=== PATIENT | female | born 1965 | race American Indian/Alaskan Native ===

== ENCOUNTER 2016-07-21 13:12 | Inpatient (IN) | payer MEDICAID, OTHER ==
[2016-07-21] MEDS ORDERED: Albuterol-Ipratrop 3 mg / 0.5 (3 ml) UD INH STA ×3 (13:42→13:43)
[2016-07-21] MEDS ORDERED: MethylPREDNISolone 40 mg Vial IVP STA (13:42)
--- NOTE | 2016-07-21 13:46 | C.PDOC ---
History Of Present Illness 50 yr old with PMhx of asthma, presents to the ER with complaints of SOB and wheezing for the past 2 days. Also reports of a dry cough. Patient denies fever , nausea, vomiting, chest pain, abdominal pain, weakness or numbness. Time Seen by Provider: 07/21/16 13:30 Chief Complaint (Nursing): Shortness Of Breath History Per: Patient History/Exam Limitations: no limitations Onset/Duration Of Symptoms: Days (2) Current Symptoms Are (Timing): Still Present Past Medical History Reviewed: Historical Data, Nursing Documentation, Vital Signs Vital Signs: Last Vital Signs Temp 98.4 F 07/21/16 16:53 Pulse 104 H 07/21/16 16:53 Resp 22 07/21/16 16:53 BP 159/92 H 07/21/16 16:53 Pulse Ox 96 07/21/16 16:53 - Medical History PMH: Asthma, HTN Family History: States: No Known Family Hx - Social History Hx Alcohol Use: No Hx Substance Use: No - Immunization History Hx Tetanus Toxoid Vaccination: No Hx Influenza Vaccination: No Hx Pneumococcal Vaccination: No Review Of Systems Except As Marked, All Systems Reviewed And Found Negative. Constitutional: Negative for: Fever Cardiovascular: Negative for: Chest Pain Respiratory: Positive for: Cough (Dry ), Shortness of Breath Gastrointestinal: Negative for: Nausea, Vomiting, Abdominal Pain Neurological: Negative for: Weakness, Numbness Physical Exam - Physical Exam Appears: Non-toxic, No Acute Distress Skin: Warm, Dry, No Rash Head: Atraumatic, Normacephalic Eye(s): bilateral: Normal Inspection, PERRL, EOMI Oral Mucosa: Moist Throat: Normal, No Erythema, No Exudate Neck: Normal, Normal ROM, No Paracervical Tenderness, No Step Off Deformity, Supple Chest: Symmetrical, No Tenderness Cardiovascular: Rhythm Regular, No Murmur Respiratory: No Rales, No Stridor, Wheezing (Diffuse) Gastrointestinal/Abdominal: Normal Exam, Soft, No Tenderness, No Guarding, No Rebound Extremity: Normal ROM, No Swelling Neurological/Psych: Oriented x3, Normal Speech, Normal Motor ED Course And Treatment - Laboratory Results Result Diagrams: 07/21/16 14:00 07/21/16 14:00 ECG: Interpreted By Me, Viewed By Me ECG Rhythm: Sinus Rhythm ECG Interpretation: No Acute Changes Interpretation Of ECG: Non specific ST/T wave changes. No interval changes. Rate From EC (BPM) O2 Sat by Pulse Oximetry: 97 (RA) - Other Rad CXR X-Ray: Viewed By Me, Read By Radiologist Interpretation: HISTORY: chest pain. COMPARISON: 07/12/2016. TECHNIQUE: Chest PA and lateral. FINDINGS: LUNGS: Opacity in the right lower lobe could represent atelectasis versus developing pneumonia. PLEURA: No significant pleural effusion identified. No pneumothorax apparent. CARDIOVASCULAR: Normal. OSSEOUS STRUCTURES: The osseous structures demonstrate degenerative changes. VISUALIZED UPPER ABDOMEN: Upper abdomen is suboptimally evaluated. OTHER FINDINGS: None. IMPRESSION: Opacity in the right lower lobe could represent atelectasis versus pneumonia. Medical Decision Making Medical Decision Making: PLAN: * CXR * EKG * Troponin * CBC * Albuterol INH * Solumedrol IVP * 344: pt wiht diffuse wheezing, persistent, peak flow only 150 to 200. needs admission, iv steriods, antibiotics Disposition - Disposition Disposition: HOSPITALIZED Disposition Time: 15:45 Condition: FAIR - Clinical Impression Clinical Impression: Asthma - Scribe Statement The provider has reviewed the documentation as recorded by the Sarahibe Bonnie Oleary Provider Attestation: All medical record entries made by the Scribe were at my direction and personally dictated by me. I have reviewed the chart and agree that the record accurately reflects my personal performance of the history, physical exam, medical decision making, and the department course for this patient. I have also personally directed, reviewed, and agree with the discharge instructions and disposition. Decision To Admit - Pt Status Changed To: Hospital Disposition Of: Inpatient - Admit Certification Admit to Inpatient:: After my assessment, the patient will require hospitalization for at least two midnights. This is because of the severity of symptoms shown, intensity of services needed, and/or the medical risk in this patient being treated as an outpatient. - InPatient: Physician Admission Certification: I certify that this patient requires 2 or more midnights of care for the following reason:: pt with asthma, minimal improvement in peak flow needs iv steriods - . Bed Request Type: Telemetry Admitting Physician: Bhupendra Ryder Patient Diagnosis: Asthma
[2016-07-21] MEDS ORDERED: Albuterol 0.042% Inhal Sol (1.25 mg/3 mL) UD ONE (13:54)
[2016-07-21] MEDS ORDERED: Albuterol-Ipratrop 3 mg / 0.5 (3 ml) UD ONE (14:01)
[2016-07-21 14:10] LABS: BASO % 0.6 % (0.0-2.0); CHLORIDE 101 mmol/L (98-107); EOS # 0.3 K/uL (0.0-0.7); EOS % 5.4 % (0.0-4.0); HEMATOCRIT 40.2 % (34.0-47.0); LYMPH # 1.3 K/uL (1.0-4.3); LYMPH % 20.2 % (20.0-40.0); MEAN CELL VOLUME 84.8 fL (81.0-99.0); MEAN CORPUSCULAR HGB CONC 31.9 g/dL (33.0-37.0); MEAN PLATELET VOLUME 8.7 fL (7.2-11.7); MONO # 0.4 K/uL (0.0-0.8); MONO % 6.9 % (0.0-10.0); RED CELL DISTRIBUTION WIDTH 14.9 % (11.5-14.5); WHITE BLOOD COUNT 6.2 K/uL (4.8-10.8)
[2016-07-21 14:11] LABS: POTASSIUM 3.2 mmol/L (3.6-5.2); SODIUM 145 mmol/L (132-148)
[2016-07-21 14:13] LABS: GFR AFRICAN-AMERICAN > 60
[2016-07-21 14:14] LABS: ALB/GLOB RATIO 1.1 (1.0-2.1); ALKALINE PHOSPHATASE 52 U/L (38-126); ALT/SGPT 25 U/L (9-52); AST/SGOT 18 U/L (14-36); BILIRUBIN,TOTAL 0.5 mg/dL (0.2-1.3); BLOOD UREA NITROGEN 12 mg/dL (7-17); CALCIUM 8.7 mg/dl (8.6-10.4); CARBON DIOXIDE 31 mmol/L (22-30); GLUCOSE,RANDOM 102 mg/dL (65-105); TOTAL PROTEIN 7.7 g/dL (6.3-8.3)
[2016-07-21] MEDS ORDERED: Potassium Chloride 20 mEq ER Tab PO STA (14:17)
[2016-07-21] MEDS ORDERED: Potassium Chloride 20 mEq ER Tab PO ONE (14:40)
[2016-07-21] MEDS ORDERED: Azithromycin 500 MG in Sodium Chloride 0.9% 250 ML IVPB STA (15:01)
--- NOTE | 2016-07-21 15:01 | RAD ---
HISTORY: chest pain COMPARISON: 07/12/2016. TECHNIQUE: Chest PA and lateral FINDINGS: LUNGS: Opacity in the right lower lobe could represent atelectasis versus developing pneumonia. PLEURA: No significant pleural effusion identified. No pneumothorax apparent. CARDIOVASCULAR: Normal. OSSEOUS STRUCTURES: The osseous structures demonstrate degenerative changes. VISUALIZED UPPER ABDOMEN: Upper abdomen is suboptimally evaluated. OTHER FINDINGS: None. IMPRESSION: Opacity in the right lower lobe could represent atelectasis versus pneumonia.
[2016-07-21] MEDS ORDERED: cefTRIAXone IV 1 gm in Dextros 50 ML IVPB ONE (15:10)
[2016-07-21] MEDS ORDERED: Azithromycin 500mg/250ML NS 250 ML IVPB ONE (15:10)
--- NOTE | 2016-07-21 16:12 | CP.PCM.HP ---
History of Present Illness - History of Present Illness History of Present Illness: CC: "I couldn't breath this morning" HPI: Patient is a 50 year old female with PMHx of asthma, bipolar disorder, and HTN who presents to the ED complaining of shortness of breath. She states that about 10 days ago her asthma became worse and she developed a productive cough with yellow sputum. The patient states that she uses Ventolin INH daily and has been using her albuterol nebulizer multiple times a day for the past week. She came to the ED on 07/12/16 for the same symptoms and was given Solu-medrol and nebulizer treatment. Her symptoms improved and she was discharged home on Prednisone 40mg, Ventolin INH, and Albuterol INH. The patient's asthma was stable after her ED visit but she says that her symptoms returned after two days. She complains of wheezing as well and is unable to walk more than one flight of stairs without feeling short of breath. She also complains that when she lays flat to sleep she occasionally wakes up gasping for air. She admits to snoring at night. Denies history of sleep apnea, patient never has had sleep study before. She must sleep on multiple pillows at night. Her dyspnea makes her anxiety worse and she admits to panic attacks. Denies chest pain, palpitations, fevers, sick contacts, headache, dizziness, sore throat, nasal congestion, fatigue, body aches, back pain, abdominal pain, nausea, vomiting, decreased appetite, diarrhea, swelling in her legs, and weakness. She denies recent travel. Patient was given nebulizer and solu-medrol IV in ED. Her symptoms improved but patient states that she still feels short of breath and unwell. Patient states that she has never been intubated before. She does not know her baseline peak flow. PMD: Dr Mancia (clinic) Meds: Ventolin INH, Albuterol INH, Lasix, Prednisone, Seroquel, Celexa (patient admits that she does not take her psychiatric medications regularly and is not compliant with her treatment. She sees Dr Reynoso regularly) Surgical Hx: x5, umbilical hernia repair Family Hx: Mom- asthma, HTN (); Dad- Lung cancer () Social Hx: Denies EtOH use, denies tobacco use, denies illicit drug use. Currently unemployed, trying to get disability for her asthma. Allergies: NKDA Present on Admission - Present on Admission Any Indicators Present on Admission: No Review of Systems - Constitutional Constitutional: As Per HPI. absent: Chills, Fatigue, Fever, Weakness - EENT Eyes: As Per HPI. absent: Change in Vision Ears: As Per HPI. absent: Dizziness Nose/Mouth/Throat: As Per HPI. absent: Nasal Congestion, Sinus Pain, Sinus Pressure, Sore Throat - Cardiovascular Cardiovascular: As Per HPI, Dyspnea. absent: Chest Pain, Irregular Heart Rhythm , Leg Edema, Lightheadedness, Palpitations - Respiratory Respiratory: As Per HPI, Cough (productive), Dyspnea, Dyspnea on Exertion, Wheezing, Snoring, Chest Congestion. absent: Hemoptysis, Pain on Inspiration, Pain with Coughing - Gastrointestinal Gastrointestinal: As Per HPI. absent: Abdominal Pain, Constipation, Diarrhea, Nausea, Vomiting - Genitourinary Genitourinary: As Per HPI. absent: Change in Urinary Stream, Difficulty Urinating - Musculoskeletal Musculoskeletal: As Per HPI. absent: Back Pain, Muscle Weakness, Numbness, Tingling - Integumentary Integumentary: As Per HPI. absent: New Lesions, Rash - Neurological Neurological: As Per HPI. absent: Dizziness, Numbness, Headaches, Tingling, Weakness - Psychiatric Psychiatric: As Per HPI, Anxiety, Panic Attacks. absent: Depression, Suicidal Ideation Past Patient History - Infectious Disease Hx of Infectious Diseases: None - Past Social History Smoking Status: Never Smoked - CARDIAC Hx Hypertension: Yes - PULMONARY Hx Asthma: Yes - PSYCHIATRIC Hx Substance Use: No - SURGICAL HISTORY Hx Section: Yes (x5) Hx Herniorrhaphy: Yes - ANESTHESIA Hx Anesthesia: Yes Hx Anesthesia Reactions: No Hx Malignant Hyperthermia: No Meds Allergies/Adverse Reactions: Allergies Allergy/AdvReac Type Severity Reaction Status Date / Time No Known Allergies Allergy Verified 07/21/16 13:18 Physical Exam - Constitutional Appears: Non-toxic, No Acute Distress - Head Exam Head Exam: ATRAUMATIC, NORMOCEPHALIC - Eye Exam Eye Exam: EOMI, Normal appearance, PERRL Pupil Exam: NORMAL ACCOMODATION - ENT Exam ENT Exam: Mucous Membranes Moist, Normal Exam Additional comments: negative erythema or exudates - Neck Exam Neck exam: Positive for: Normal Inspection. Negative for: Lymphadenopathy - Respiratory Exam Respiratory Exam: Wheezes (diffuse expiratory wheezes throughout), NORMAL BREATHING PATTERN. absent: Accessory Muscle Use, Chest Wall Tenderness, Decreased Breath Sounds, Clear to Auscultation Bilateral, Rhonchi, Respiratory Distress - Cardiovascular Exam Cardiovascular Exam: REGULAR RHYTHM, +S1, +S2. absent: Irregular Rhythm, Systolic Murmur - GI/Abdominal Exam GI & Abdominal Exam: Normal Bowel Sounds, Soft. absent: Distended, Firm, Guarding, Tenderness - Extremities Exam Extremities exam: Positive for: normal inspection, pedal pulses present (2+ pedal pulses, 2+ radial pulses ). Negative for: pedal edema, tenderness - Back Exam Back exam: NORMAL INSPECTION - Neurological Exam Neurological exam: Alert, CN II-XII Intact, Normal Gait, Oriented x3 - Psychiatric Exam Psychiatric exam: Normal Affect, Normal Mood - Skin Skin Exam: Dry, Intact, Normal Color, Warm Results - Vital Signs Recent Vital Signs: Last Vital Signs Temp 98.4 F 07/21/16 14:45 Pulse 94 H 07/21/16 14:45 Resp 20 07/21/16 14:45 BP 130/71 07/21/16 14:45 Pulse Ox 97 07/21/16 15:51 - Labs Result Diagrams: 07/21/16 14:00 07/21/16 14:00 Labs: Laboratory Results - last 24 hr 07/21/16 14:00 WBC 6.2 RBC 4.74 Hgb 12.8 Hct 40.2 MCV 84.8 MCH 27.0 MCHC 31.9 L RDW 14.9 H Plt Count 230 MPV 8.7 Neut % (Auto) 66.9 Lymph % (Auto) 20.2 [place] % (Auto) 6.9 Eos % (Auto) 5.4 H Baso % (Auto) 0.6 Neut # 4.1 Lymph # 1.3 [place] # 0.4 Eos # 0.3 Baso # 0.0 PT 11.4 INR 1.0 APTT 30 Sodium 145 Potassium 3.2 L Chloride 101 Carbon Dioxide 31 H Anion Gap 16 BUN 12 Creatinine 0.5 L Est GFR ( Amer) > 60 Est GFR (Non-Af Amer) > 60 Random Glucose 102 Calcium 8.7 Total Bilirubin 0.5 AST 18 ALT 25 Alkaline Phosphatase 52 Troponin I < 0.0120 NT-Pro-B Natriuret Pep 31.1 Total Protein 7.7 Albumin 4.0 Globulin 3.7 Albumin/Globulin Ratio 1.1 Assessment & Plan - Assessment and Plan (Free Text) Assessment: (1) Dyspnea secondary to asthma exacerbation Given Solu-medrol 125mg IV x1 and duonebs in ED. Pre-treatment peak flow 150, post-treatment peak flow 200. SHAGGY negative x1 ProBNP normal Duonebs 3ml INH q6h REBA Spiriva 18mcg INH q24h Rule out DVT and CHF as causes of dyspnea- f/u ECHO and B/L LE dopplers Patient advised to have sleep study done as outpatient to rule out obstructive sleep apnea (2) Pneumonia Chest X-ray: opacity in the right lower lobe could represent atelectasis vs pneumonia In ED- afebrile, no leukocytosis Azithromycin 500mg IV q24h Ceftriaxone 1gm IV q12h Robitussin 200mg PO q4h prn f/u legionella, influenza AB, and mycoplasma f/u blood culture f/u sputum culture (3) HTN Continue home med Lasix 20mg PO daily Well controlled Check vitals q4h and adjust medications if needed (4) Hypokalemia K+ 3.2 in ED Likely secondary to chronic albuterol treatments Given Kdur 40mEq x1 f/u BMP in AM and replete as needed (5) Bipolar disorder Current denies depression, SI/HI Non-compliant with home meds Seroquel and Celexa, will not start on this admission Continue management per outpatient psychiatrist Dr Reynoso after discharge (6) Prophylactic measures Protonix 40mg PO daily SCDs Heparin 5000u SC q8h
[2016-07-21 17:05] LABS: LEGIONELLA AG URINE NEGATIVE (NEGATIVE)
[2016-07-21] MEDS: Albuterol-Ipratrop 3 mg / 0.5 (3 ml) UD INH SCH (20:29)
[2016-07-22] MEDS: Albuterol-Ipratrop 3 mg / 0.5 (3 ml) UD INH SCH ×5 (01:13→23:34)
[2016-07-22 07:54] LABS: CHLORIDE 99 mmol/L (98-107); POTASSIUM 4.7 mmol/L (3.6-5.2); SODIUM 143 mmol/L (132-148)
[2016-07-22 07:55] LABS: BASO % 0.2 % (0.0-2.0); EOS % 0.1 % (0.0-4.0); HEMATOCRIT 39.8 % (34.0-47.0); LYMPH # 0.8 K/uL (1.0-4.3); LYMPH % 8.1 % (20.0-40.0); MEAN CELL VOLUME 84.3 fL (81.0-99.0); MEAN CORPUSCULAR HEMOGLOBIN 27.8 pg (27.0-31.0); MEAN PLATELET VOLUME 9.1 fL (7.2-11.7); MONO # 0.3 K/uL (0.0-0.8); PLATELET COUNT 245 K/uL (130-400)
[2016-07-22 07:56] LABS: BILIRUBIN,TOTAL 0.3 mg/dL (0.2-1.3); CARBON DIOXIDE 29 mmol/L (22-30); GFR AFRICAN-AMERICAN > 60
[2016-07-22 07:57] LABS: ALB/GLOB RATIO 1.1 (1.0-2.1); ALKALINE PHOSPHATASE 59 U/L (38-126); ALT/SGPT 22 U/L (9-52); AST/SGOT 19 U/L (14-36); BLOOD UREA NITROGEN 11 mg/dL (7-17); CALCIUM 9.3 mg/dl (8.6-10.4); GLUCOSE,RANDOM 126 mg/dL (65-105); TOTAL PROTEIN 7.9 g/dL (6.3-8.3)
[2016-07-22 08:00] LABS: WHITE BLOOD COUNT 10.2 K/uL (4.8-10.8)
[2016-07-22] MEDS: Tiotropium 18 mcg Cap For Inhalation INH SCH (08:27)
[2016-07-22] MEDS: MethylPREDNISolone 40 mg Vial IVP SCH ×2 (10:05→21:08)
[2016-07-22] MEDS: Pantoprazole 40 mg EC Tab PO SCH (10:05)
--- NOTE | 2016-07-22 11:20 | CP.PCM.PN ---
Subjective - Date & Time of Evaluation Date of Evaluation: 07/22/16 Time of Evaluation: 07:55 - Subjective Subjective: PGY-1 Medicine Note - Dr. Ryder Patient seen and examined at bedside. No overnight events per nursing. Patient reports persistent cough with associated muscular back pain. She reports mild improvement with duonebs. Will monitor improvement with additional pulmonary meds. Tolerating diet, +BM, +urination. Denies f/c, headache, chest pain, palpitations, overt SOB, abdominal pain, n/v, d/c, dysuria, urinary frequency, LE swelling, or any other acute complaints. Objective - Vital Signs/Intake and Output Vital Signs (last 24 hours): Temp Pulse Resp BP Pulse Ox 98.1 F 99 H 20 163/93 H 98 07/21/16 23:40 07/22/16 08:29 07/21/16 23:40 07/22/16 10:05 07/21/16 23:40 - Medications Medications: Current Medications Albuterol/Ipratropium (Duoneb 3 Mg/0.5 Mg (3 Ml) Ud) 3 ml INH RQ6 REBA Last Admin: 07/22/16 07:27 Dose: 3 ml Furosemide (Lasix) 20 mg PO DAILY REBA Last Admin: 07/22/16 10:05 Dose: 20 mg Guaifenesin (Robitussin) 200 mg PO Q4H PRN PRN Reason: Cough and congestion Heparin Sodium (Porcine) (Heparin) 5,000 units SC Q8 REBA Last Admin: 07/22/16 06:08 Dose: 5,000 units Azithromycin 500 mg/ Sodium (Chloride) 250 mls @ 250 mls/hr IVPB Q24H REBA Ceftriaxone Sodium 1 gm/ (Sodium Chloride) 100 mls @ 100 mls/hr IVPB Q12H REBA Last Admin: 07/22/16 10:05 Dose: 100 mls/hr Methylprednisolone (Solu-Medrol) 40 mg IVP Q12 REBA Last Admin: 07/22/16 10:05 Dose: 40 mg Pantoprazole Sodium (Protonix Ec Tab) 40 mg PO DAILY REBA Last Admin: 07/22/16 10:05 Dose: 40 mg Pneumococcal Polyvalent Vaccine (Pneumovax 23 Vaccine) 0.5 ml IM .ONCE ONE Stop: 07/23/16 10:01 Tiotropium [place] (Spiriva) 18 mcg INH RQ24 REBA Last Admin: 07/22/16 08:27 Dose: Not Given - Labs Labs: 07/22/16 07:09 07/22/16 07:09 PT 11.4 SECONDS (9.7-12.2) 07/21/16 14:00 INR 1.0 07/21/16 14:00 APTT 30 SECONDS (21-34) 07/21/16 14:00 - Additional Findings Additional findings: - Constitutional Appears: Non-toxic, No Acute Distress - Head Exam Head Exam: ATRAUMATIC, NORMOCEPHALIC - Eye Exam Eye Exam: EOMI, Normal appearance, PERRL Pupil Exam: NORMAL ACCOMODATION - ENT Exam ENT Exam: Mucous Membranes Moist, Normal Exam Additional comments: negative erythema or exudates - Respiratory Exam Respiratory Exam: Wheezes (diffuse expiratory wheezes), NORMAL BREATHING PATTERN. absent: Accessory Muscle Use, Decreased Breath Sounds, Rhonchi, Respiratory Distress - Cardiovascular Exam Cardiovascular Exam: REGULAR RHYTHM, +S1, +S2. absent: Irregular Rhythm, Systolic Murmur - GI/Abdominal Exam GI & Abdominal Exam: Normal Bowel Sounds, Soft. absent: Distended, Firm, Guarding, Tenderness - Extremities Exam Extremities exam: Positive for: normal inspection, pedal pulses present (2+ pedal pulses, 2+ radial pulses ). Negative for: pedal edema, tenderness - Back Exam Back exam: NORMAL INSPECTION - Neurological Exam Neurological exam: Alert, CN II-XII Intact, Normal Gait, Oriented x3 - Psychiatric Exam Psychiatric exam: Normal Affect, Normal Mood - Skin Skin Exam: Dry, Intact, Normal Color, Warm Assessment and Plan - Assessment and Plan (Free Text) Assessment: (1) Dyspnea secondary to asthma exacerbation Given Solu-medrol 125mg IV x1 and duonebs in ED. Pre-treatment peak flow 150, post-treatment peak flow 200. SHAGGY negative ProBNP normal Duonebs 3ml INH q4h REBA Spiriva 18mcg INH q24h Rule out DVT and CHF as causes of dyspnea- ECHO - EF 73% B/L LE dopplers - Negative CT angio PE - Negative Patient advised to have sleep study done as outpatient to rule out obstructive sleep apnea (2) Pneumonia Chest X-ray: opacity in the right lower lobe could represent atelectasis vs pneumonia In ED- afebrile, no leukocytosis Azithromycin 500mg IV q24h Ceftriaxone 1gm IV q12h Robitussin 200mg PO q4h prn Negative: legionella, influenza AB, and mycoplasma f/u blood culture (pending) f/u sputum culture - G(+), pending (3) HTN 169/93, Continue to monitor and adjust Continue home med Lasix 20mg PO daily Lasix 20mg IVP once (07/22) Check vitals q4h and adjust medications if needed (4) Hypokalemia - resolved K+ 3.2 in ED Likely secondary to chronic albuterol treatments Given Kdur 40mEq x1 f/u BMP in AM and replete as needed (5) Bipolar disorder Current denies depression, SI/HI Non-compliant with home meds Seroquel and Celexa, will not start on this admission Continue management per outpatient psychiatrist Dr Reynoso after discharge (6) Prophylactic measures Protonix 40mg PO daily SCDs Heparin 5000u SC q8h
[2016-07-22 11:25] LABS: METAMYELOCYTE 1 % (0-0); NEUTROPHIL 76 % (50-75); TOTAL CELLS COUNTED 100
[2016-07-22 11:26] LABS: LARGE PLATELETS PRESENT
[2016-07-22] MEDS: Azithromycin 500 MG in Sodium Chloride 0.9% 250 ML IVPB SCH (11:30)
[2016-07-22] MEDS ORDERED: Iodixanol 320 mg/ml 150 ml Bottle IV ONE (14:02)
--- NOTE | 2016-07-22 14:36 | VASCLAB ---
PROCEDURE: Lower Extremity Venous Duplex Exam. HISTORY: Leg swelling, rule out DVT PRIORS: None. TECHNIQUE: Bilateral common femoral, femoral, popliteal and posterior tibial, peroneal and great saphenous veins were evaluated. Flow was assessed with color Doppler, compressibility, assessment of phasic flow and augmentation response. Report prepared by Butch Galeano, GENOVEVA, RVT FINDINGS: RIGHT: 1. Common Femoral Vein: 1.1. Compressibility - Fully compressible: Thrombus - None : Flow - Phasic: Augmentation -Normal: Reflux - None. 2. Femoral Vein: 2.1. Compressibility - Fully compressible: Thrombus - None : Flow - Phasic: Augmentation -Normal: Reflux - None. 3. Popliteal Vein: 3.1. Compressibility - Fully compressible: Thrombus - None : Flow - Phasic: Augmentation -Normal: Reflux - None. 4. Posterior Tibial Vein: 4.1. Compressibility - Fully compressible: Thrombus - None: Flow - Phasic: Augmentation -Normal: Reflux - None. 5. Peroneal Vein: 5.1. Compressibility - Fully compressible: Thrombus - None: Flow - Phasic: Augmentation -Normal: Reflux - None. 6. Great Saphenous Vein: 6.1. Compressibility - Fully compressible: Thrombus - None: Flow - Phasic: Augmentation - Normal: Reflux - None. LEFT: 1. Common Femoral Vein: 1.1. Compressibility - Fully compressible: Thrombus - None: Flow - Phasic: Augmentation -Normal: Reflux - None. 2. Femoral Vein: 2.1. Compressibility - Fully compressible: Thrombus - None: Flow - Phasic: Augmentation -Normal: Reflux - None. 3. Popliteal Vein: 3.1. Compressibility - Fully compressible: Thrombus - None : Flow - Phasic: Augmentation -Normal: Reflux - None. 4. Posterior Tibial Vein: 4.1. Compressibility - Fully compressible: Thrombus - None: Flow - Phasic: Augmentation -Normal: Reflux - None. 5. Peroneal Vein: 5.1. Compressibility - Fully compressible: Thrombus - None: Flow - Phasic: Augmentation -Normal: Reflux - None. 6. Great Saphenous Vein: 6.1. Compressibility - Fully compressible: Thrombus - None: Flow - Phasic: Augmentation - Normal: Reflux - None. OTHER FINDINGS: Right: None significant. Left: None significant. IMPRESSION: Right: No evidence of deep or superficial vein thrombosis of the right lower extremity. Normal valve function noted of the right side. Left: No evidence of deep or superficial vein thrombosis of the left lower extremity. Normal valve function noted of the left side.
--- NOTE | 2016-07-22 15:19 | CT ---
PROCEDURE: CT Chest with contrast (Pulmonary Angiogram) HISTORY: persistent SOB COMPARISON: None available. TECHNIQUE: Axial computed tomography images were obtained of the chest in the pulmonary arterial phase of enhancement. Coronal and sagittal reformatted images were created and reviewed. Intravenous contrast dose: 100 cc of Visipaque Radiation dose: Total exam DLP = 542 mGy-cm. FINDINGS: PULMONARY ARTERIES: Unremarkable. No pulmonary embolism. AORTA: No acute findings. No thoracic aortic aneurysm. LUNGS: Unremarkable. No nodule, mass or pulmonary consolidation. PLEURAL SPACES: Unremarkable. No effusion or pneuomothorax. HEART: Unremarkable. No cardiomegaly. No significant pericardial effusion. LYMPH NODES: No lymphadenopathy. BONES, CHEST WALL: Unremarkable. No fracture or destructive lesion OTHER FINDINGS: Unremarkable. IMPRESSION: Unremarkable CT pulmonary angiogram. No pulmonary embolus.
--- NOTE | 2016-07-22 19:08 | CARD ---
APPROVED REPORT EXAM: Two-dimensional and M-mode echocardiogram with Doppler and color Doppler. Other Information Quality : GoodRhythm : INDICATION Dyspnea RISK FACTORS Hypertension M-Mode DIMENSIONS RVDd1.51 (2.1-3.2cm)Left Atrium (MM)4.24 (2.5-4.0cm) IVSd0.89 (0.7-1.1cm)Aortic Root3.58 (2.2-3.7cm) LVDd4.79 (4.0-5.6cm)Aortic Cusp Exc.1.92 (1.5-2.0cm) PWd1.03 (0.7-1.1cm)FS (%) 42 % LVDs2.77 (2.0-3.8cm)LVEF (%)73 (>50%) Aortic Valve AoV Peak Ndnvrznr972.2cm/Roberto Peak GR.12mmHg Mitral Valve MV E Hgtaifei88.2cm/sMV A Fjmfhcxg933.1cm/sE/A ratio0.7 TDI E/Lateral E'0.0E/Medial E'0.0 Tricuspid Valve TR Peak Pddznora441gm/sTR Peak Gr.[id number] LEFT VENTRICLE The left ventricle is normal size. There is normal left ventricular wall thickness. The left ventricular function is normal. The left ventricular ejection fraction is within the normal range. There is normal LV segmental wall motion. Transmitral Doppler flow pattern is Grade I-abnormal relaxation pattern. RIGHT VENTRICLE The right ventricle is normal size. There is normal right ventricular wall thickness. The right ventricular systolic function is normal. ATRIA The left atrium is borderline dilated. The right atrium size is normal. AORTIC VALVE The aortic valve is not well visualized. No aortic regurgitation is present. MITRAL VALVE The mitral valve is mildly thickened. There is no evidence of mitral valve prolapse. TRICUSPID VALVE The tricuspid valve is normal in structure. GREAT VESSELS The aortic root is normal in size. The IVC is normal in size and collapses >50% with inspiration. <Conclusion> The left ventricle is normal size. There is normal left ventricular wall thickness. The left ventricular function is normal. The left ventricular ejection fraction is within the normal range. There is normal LV segmental wall motion. Transmitral Doppler flow pattern is Grade I-abnormal relaxation pattern.
[2016-07-22] MEDS: guaiFENesin 200 mg/10 ml Syrup UD PO PRN (21:11)
[2016-07-23] MEDS: Albuterol-Ipratrop 3 mg / 0.5 (3 ml) UD INH SCH ×4 (03:06→16:09)
[2016-07-23 06:29] LABS: CHLORIDE 96 mmol/L (98-107)
[2016-07-23 06:30] LABS: POTASSIUM 4.7 mmol/L (3.6-5.2); SODIUM 142 mmol/L (132-148)
[2016-07-23 06:32] LABS: ALB/GLOB RATIO 1.1 (1.0-2.1); ALKALINE PHOSPHATASE 61 U/L (38-126); ALT/SGPT 26 U/L (9-52); AST/SGOT 22 U/L (14-36); BILIRUBIN,TOTAL 0.6 mg/dL (0.2-1.3); BLOOD UREA NITROGEN 17 mg/dL (7-17); CARBON DIOXIDE 34 mmol/L (22-30); GFR AFRICAN-AMERICAN > 60; GLUCOSE,RANDOM 139 mg/dL (65-105); TOTAL PROTEIN 8.3 g/dL (6.3-8.3)
[2016-07-23 06:33] LABS: CALCIUM 9.4 mg/dl (8.6-10.4)
[2016-07-23 07:24] LABS: BASO # 0.1 K/uL (0.0-0.2); BASO % 0.4 % (0.0-2.0); EOS % 0.1 % (0.0-4.0); HEMATOCRIT 41.9 % (34.0-47.0); LYMPH # 1.7 K/uL (1.0-4.3); LYMPH % 11.7 % (20.0-40.0); MEAN CORPUSCULAR HEMOGLOBIN 27.2 pg (27.0-31.0); MEAN PLATELET VOLUME 9.1 fL (7.2-11.7); MONO # 0.3 K/uL (0.0-0.8); RED CELL DISTRIBUTION WIDTH 14.9 % (11.5-14.5); WHITE BLOOD COUNT 14.2 K/uL (4.8-10.8)
[2016-07-23] MEDS: Tiotropium 18 mcg Cap For Inhalation INH SCH (07:38)
[2016-07-23] MEDS: Pantoprazole 40 mg EC Tab PO SCH (09:22)
[2016-07-23] MEDS: MethylPREDNISolone 40 mg Vial IVP SCH (09:22)
[2016-07-23] MEDS ORDERED: Pneumococcal 23-Valent Vaccine IM ONE (10:00)
[2016-07-23] MEDS: guaiFENesin 200 mg/10 ml Syrup UD PO PRN (10:17)
[2016-07-23] MEDS: Azithromycin 500 MG in Sodium Chloride 0.9% 250 ML IVPB SCH (11:43)
[2016-07-23 15:29] VITALS: PULSE 92; RESP 22; TEMP 97.7; O2SAT 94
[2016-07-23 16:23] VITALS: BP 154/88
--- NOTE | 2016-07-23 18:07 | CP.PCM.DIS ---
Provider - Provider Date of Admission: 07/21/16 15:46 Attending physician: Bhupendra Ryder MD Time Spent in preparation of Discharge (in minutes): 40 Hospital Course - Lab Results Lab Results: Micro Results 07/22/16 16:30 Blood-Venous Blood Culture - Preliminary NO GROWTH AFTER 24 HOURS 07/22/16 13:25 Blood-Venous Blood Culture - Preliminary NO GROWTH AFTER 24 HOURS 07/22/16 00:10 Sputum Gram Stain - Preliminary Most Recent Lab Values WBC 14.2 K/uL (4.8-10.8) H 07/23/16 06:02 RBC 4.93 Mil/uL (3.80-5.20) 07/23/16 06:02 Hgb 13.4 g/dL (11.0-16.0) 07/23/16 06:02 Hct 41.9 % (34.0-47.0) 07/23/16 06:02 MCV 85.0 fL (81.0-99.0) 07/23/16 06:02 MCH 27.2 pg (27.0-31.0) 07/23/16 06:02 MCHC 32.0 g/dL (33.0-37.0) L 07/23/16 06:02 RDW 14.9 % (11.5-14.5) H 07/23/16 06:02 Plt Count 298 K/uL (130-400) 07/23/16 06:02 MPV 9.1 fL (7.2-11.7) 07/23/16 06:02 Neut % (Auto) 85.8 % (50.0-75.0) H 07/23/16 06:02 Lymph % (Auto) 11.7 % (20.0-40.0) L 07/23/16 06:02 Bulloch % (Auto) 2.0 % (0.0-10.0) 07/23/16 06:02 Eos % (Auto) 0.1 % (0.0-4.0) 07/23/16 06:02 Baso % (Auto) 0.4 % (0.0-2.0) 07/23/16 06:02 Neut # 12.2 K/uL (1.8-7.0) H 07/23/16 06:02 Lymph # 1.7 K/uL (1.0-4.3) 07/23/16 06:02 Bulloch # 0.3 K/uL (0.0-0.8) 07/23/16 06:02 Eos # 0.0 K/uL (0.0-0.7) 07/23/16 06:02 Baso # 0.1 K/uL (0.0-0.2) 07/23/16 06:02 Neutrophils % (Manual) 76 % (50-75) H 07/22/16 07:09 Band Neutrophils % 11 % (0-2) H* 07/22/16 07:09 Lymphocytes % (Manual) 9 % (20-40) L 07/22/16 07:09 Monocytes % (Manual) 3 % (0-10) 07/22/16 07:09 Metamyelocytes % 1 % (0-0) H 07/22/16 07:09 Platelet Estimate Normal (NORMAL) 07/22/16 07:09 Large Platelets Present 07/22/16 07:09 Anisocytosis (manual) Slight 07/22/16 07:09 PT 11.4 SECONDS (9.7-12.2) 07/21/16 14:00 INR 1.0 07/21/16 14:00 APTT 30 SECONDS (21-34) 07/21/16 14:00 Sodium 142 mmol/L (132-148) 07/23/16 06:02 Potassium 4.7 mmol/L (3.6-5.2) 07/23/16 06:02 Chloride 96 mmol/L (98-107) L 07/23/16 06:02 Carbon Dioxide 34 mmol/L (22-30) H 07/23/16 06:02 Anion Gap 17 (10-20) 07/23/16 06:02 BUN 17 mg/dL (7-17) 07/23/16 06:02 Creatinine 0.5 MG/DL (0.7-1.2) L 07/23/16 06:02 Est GFR ( Amer) > 60 07/23/16 06:02 Est GFR (Non-Af Amer) > 60 07/23/16 06:02 Random Glucose 139 mg/dL (65-105) H 07/23/16 06:02 Calcium 9.4 mg/dl (8.6-10.4) 07/23/16 06:02 Total Bilirubin 0.6 mg/dL (0.2-1.3) 07/23/16 06:02 AST 22 U/L (14-36) 07/23/16 06:02 ALT 26 U/L (9-52) 07/23/16 06:02 Alkaline Phosphatase 61 U/L (38-126) 07/23/16 06:02 Troponin I < 0.0120 ng/mL (0.00-0.120) 07/21/16 14:00 NT-Pro-B Natriuret Pep 31.1 pg/mL (0-900) 07/21/16 14:00 Total Protein 8.3 g/dL (6.3-8.3) 07/23/16 06:02 Albumin 4.3 g/dL (3.5-5.0) 07/23/16 06:02 Globulin 3.9 gm/dL (2.2-3.9) 07/23/16 06:02 Albumin/Globulin Ratio 1.1 (1.0-2.1) 07/23/16 06:02 Urine HCG, Qual Negative (NEGATIVE) 07/22/16 13:16 Influenza Typ A,B (EIA) Negative for flu a/b (NEGATIVE) 07/21/16 16:43 Ur L.pneumophila Ag Negative (NEGATIVE) 07/21/16 16:43 Mycoplasma pneumon IgM Negative (NEGATIVE) 07/22/16 07:09 - Hospital Course Hospital Course: Upon hospital admission: Patient is a 50 year old female with PMHx of asthma, bipolar disorder, and HTN who presents to the ED complaining of shortness of breath. She states that about 10 days ago her asthma became worse and she developed a productive cough with yellow sputum. The patient states that she uses Ventolin INH daily and has been using her albuterol nebulizer multiple times a day for the past week. She came to the ED on 07/12/16 for the same symptoms and was given Solu-medrol and nebulizer treatment. Her symptoms improved and she was discharged home on Prednisone 40mg, Ventolin INH, and Albuterol INH. The patient's asthma was stable after her ED visit but she says that her symptoms returned after two days. She complains of wheezing as well and is unable to walk more than one flight of stairs without feeling short of breath. She also complains that when she lays flat to sleep she occasionally wakes up gasping for air. She admits to snoring at night. Denies history of sleep apnea, patient never has had sleep study before. She must sleep on multiple pillows at night. Her dyspnea makes her anxiety worse and she admits to panic attacks. Denies chest pain, palpitations, fevers, sick contacts, headache, dizziness, sore throat, nasal congestion, fatigue, body aches, back pain, abdominal pain, nausea, vomiting, decreased appetite, diarrhea, swelling in her legs, and weakness. She denies recent travel. Patient was given nebulizer and solu-medrol IV in ED. Her symptoms improved but patient states that she still feels short of breath and unwell. Patient states that she has never been intubated before. She does not know her baseline peak flow. PMD: Dr Mancia (clinic) Meds: Ventolin INH, Albuterol INH, Lasix, Prednisone, Seroquel, Celexa (patient admits that she does not take her psychiatric medications regularly and is not compliant with her treatment. She sees Dr Reynoso regularly) Surgical Hx: x5, umbilical hernia repair Family Hx: Mom- asthma, HTN (); Dad- Lung cancer () Social Hx: Denies EtOH use, denies tobacco use, denies illicit drug use. Currently unemployed, trying to get disability for her asthma. Allergies: NKDA During hospital course, the patient was evaluated and treated for the following : (1) Dyspnea secondary to asthma exacerbation. She was tx with Solu-medrol 125mg IV x1 and duonebs in ED. Pre-treatment peak flow 150, post-treatment peak flow 200. Also tx with Duonebs 3ml INH q4h REBA, Spiriva 18mcg INH q24h. Rule out DVT and CHF as causes of dyspnea, ECHO - EF 73%, B/L LE dopplers - Negative, CT angio PE - Negative. Patient advised to have sleep study done as outpatient to rule out obstructive sleep apnea. (2) Pneumonia with Chest X-ray : opacity in the right lower lobe could represent atelectasis vs pneumonia. In ED- afebrile, no leukocytosis. Tx with Azithromycin 500mg IV q24h, Ceftriaxone 1gm IV q12h, Robitussin 200mg PO q4h prn. Negative: legionella, influenza AB, and mycoplasma. Blood culture negative x48hrs, sputum culture normal lisa. (3) HTN with pressure elevated, Continue home med Lasix 20mg PO daily and given Lasix 20mg IVP once (07/22). (4) Bipolar disorder for which she currently denies depression, SI/HI. Non-compliant with home meds Seroquel and Celexa, will not start on this admission. Continue management per outpatient psychiatrist Dr Reynoso after discharge. Upon hospital discharge, the patient was provided with the following instructions: Patient is stable for discharge per Dr. Ryder. Patient should resume all medications as outlined in this document. Additionally, patient should take the new medications listed below (scripts provided). 1. Please make an appointment and follow up with Primary Doctor, Dr. Mancia, within one week of discharge. Please discuss adjusting your home medication Lasix to a different BP medication to manage your Hypertension. 2. Please make an appointment and follow up with your psychiatrist Dr Reynoso after discharge. Patient should return to ED immediately if symptoms return or worsen. Instructions discussed with patient who understood and agreed. Newly prescribed medications: -Albuterol HFA 90mcg IH Q4H 2Puffs as needed for SOB -Duoneb 3mL INH RQ6 for 30 days -Z-pack (Follow instructions on antibiotic pack) -Robitussin 200mg PO Q4H PRN, take for 5 days - Lasix 20mg PO daily #20 - Lisinopril 5mg PO daily #20 - Prednisone 10mg PO daily #20 (follow the instructions below) Prednisone Taper Schedule Days 1-2; 40mg total: 10 mg PO before breakfast, 10 mg after lunch, 10mg after dinner, and 10 mg at bedtime Days 3-4; 30mg total: 10mg PO before breakfast, 10mg after lunch, and 10 mg at bedtime Days 5-6; 20mg total: 10mg PO before breakfast and 10mg at bedtime Days 7-8; 10mg total: 10mg PO before breakfast This is a summary of the patient's hospital admission, see chart for comprehensive detail. - Date & Time of H&P Date of H&P: 07/21/16 Time of H&P: 16:00 Discharge Exam - Additional Findings Additional findings: - Constitutional Appears: Non-toxic, No Acute Distress - Head Exam Head Exam: ATRAUMATIC, NORMOCEPHALIC - Eye Exam Eye Exam: EOMI, Normal appearance, PERRL Pupil Exam: NORMAL ACCOMODATION - ENT Exam ENT Exam: Mucous Membranes Moist, Normal Exam Additional comments: negative erythema or exudates - Respiratory Exam Respiratory Exam: Wheezes (diffuse expiratory wheezes), NORMAL BREATHING PATTERN. absent: Accessory Muscle Use, Decreased Breath Sounds, Rhonchi, Respiratory Distress - Cardiovascular Exam Cardiovascular Exam: REGULAR RHYTHM, +S1, +S2. absent: Irregular Rhythm, Systolic Murmur - GI/Abdominal Exam GI & Abdominal Exam: Normal Bowel Sounds, Soft. absent: Distended, Firm, Guarding, Tenderness - Extremities Exam Extremities exam: Positive for: normal inspection, pedal pulses present (2+ pedal pulses, 2+ radial pulses ). Negative for: pedal edema, tenderness - Back Exam Back exam: NORMAL INSPECTION - Neurological Exam Neurological exam: Alert, CN II-XII Intact, Normal Gait, Oriented x3 - Psychiatric Exam Psychiatric exam: Normal Affect, Normal Mood - Skin Skin Exam: Dry, Intact, Normal Color, Warm Discharge Plan - Discharge Medications Prescriptions: Albuterol HFA [Ventolin HFA 90 mcg/actuation (8 g)] 0.09 mg IH Q4 PRN #2 puff PRN Reason: Wheezing Albuterol/Ipratropium [Duoneb 3 mg/0.5 mg (3 ml) UD] 3 ml INH RQ6 30 Days Azithromycin [Z-Miller] 250 mg PO DAILY #6 tab Furosemide [Lasix] 20 mg PO DAILY #20 tab Lisinopril [Zestril] 5 mg PO DAILY #20 tab guaiFENesin [Robitussin] 200 mg PO Q4H PRN 5 Days PRN Reason: Cough And Congestion predniSONE [predniSONE Tab] 10 mg PO DAILY #20 tab - Follow Up Plan Condition: FAIR Disposition: HOME/ ROUTINE Instructions: Lisinopril (By mouth), Furosemide (By mouth), Prednisone (By mouth), Guaifenesin (By mouth), Azithromycin (By mouth), Ipratropium/Albuterol ( By breathing), Asthma (DC), Heart Healthy Diet (DC), Hypertension (DC), Pneumonia (DC) Additional Instructions: Patient is stable for discharge per Dr. Ryder. Patient should resume all medications as outlined in this document. Additionally, patient should take the new medications listed below (scripts provided). 1. Please make an appointment and follow up with Primary Doctor, Dr. Mancia, within one week of discharge. Please discuss adjusting your home medication Lasix to a different BP medication to manage your Hypertension. 2. Please make an appointment and follow up with your psychiatrist Dr Reynoso after discharge. Patient should return to ED immediately if symptoms return or worsen. Instructions discussed with patient who understood and agreed. Newly prescribed medications: -Albuterol HFA 90mcg IH Q4H 2Puffs as needed for SOB -Duoneb 3mL INH RQ6 for 30 days -Z-pack (Follow instructions on antibiotic pack) -Robitussin 200mg PO Q4H PRN, take for 5 days - Lasix 20mg PO daily #20 - Lisinopril 5mg PO daily #20 - Prednisone 10mg PO daily #20 (follow the instructions below) Prednisone Taper Schedule Days 1-2; 40mg total: 10 mg PO before breakfast, 10 mg after lunch, 10mg after dinner, and 10 mg at bedtime Days 3-4; 30mg total: 10mg PO before breakfast, 10mg after lunch, and 10 mg at bedtime Days 5-6; 20mg total: 10mg PO before breakfast and 10mg at bedtime Days 7-8; 10mg total: 10mg PO before breakfast
== END 2016-07-23 18:10 | disposition home or self-care (01) | DRG 194 ==
LOC: C.ER 13:12 → C.9E 15:46 → C.6T 16:29
PROVIDERS: ADMIT Internal Medicine; ATTEND Internal Medicine
DX: J18.9 Pneumonia, unspecified organism (principal); J45.901 Unspecified asthma with (acute) exacerbation; I10 Essential (primary) hypertension; F31.9 Bipolar disorder, unspecified; E87.6 Hypokalemia; F41.0 Panic disorder [episodic paroxysmal anxiety]; Z91.14 Patient's other noncompliance with medication regimen

== ENCOUNTER 2016-07-29 17:54 | Emergency (ER) | payer MEDICAID ==
[2016-07-29 18:06] VITALS: BP 103/44; PULSE 76; RESP 18; O2SAT 98
--- NOTE | 2016-07-29 19:56 | C.PDOC ---
History Of Present Illness 50 year old female c/o of tightness in chest and chronic left leg pain for the last two weeks. Pt was admitted in the hospital 2 weeks ago for asthma and a possible PNA. She was discharged and given antibiotics and her cough improved. Pt notes constant chest pain from prior visit and left leg pain for years. REports ruinning out of her percocets. Pt denies fever, chills, vomiting, nausea, SOB, diarrhea. Time Seen by Provider: 07/29/16 19:15 Chief Complaint (Nursing): Chest Pain History Per: Patient History/Exam Limitations: no limitations Onset/Duration Of Symptoms: Days Current Symptoms Are (Timing): Still Present Severity: Mild Associated Symptoms: denies: Nausea, Dyspnea Past Medical History Reviewed: Historical Data, Nursing Documentation, Vital Signs Vital Signs: Last Vital Signs Temp Pulse 76 07/29/16 18:02 Resp 18 07/29/16 18:02 BP 103/44 L 07/29/16 18:02 Pulse Ox 98 07/29/16 22:04 - Medical History PMH: Asthma, Bipolar Disorder, HTN, Pneumonia (2016) Family History: States: Unknown Family Hx - Social History Hx Alcohol Use: No Hx Substance Use: No Review Of Systems Except As Marked, All Systems Reviewed And Found Negative. Constitutional: Negative for: Fever, Chills Cardiovascular: Positive for: Chest Pain (From prior visit) Gastrointestinal: Negative for: Nausea, Vomiting, Diarrhea Musculoskeletal: Positive for: Leg Pain (Chronic leg pain) Physical Exam - Physical Exam Appears: Non-toxic, No Acute Distress Skin: Warm, Dry Head: Atraumatic, Normacephalic Eye(s): bilateral: Normal Inspection Chest: Symmetrical Cardiovascular: No Murmur, Other (High blood pressure) Respiratory: Normal Breath Sounds, No Rales, No Rhonchi, No Wheezing Gastrointestinal/Abdominal: Soft, No Tenderness, No Guarding, No Rebound Extremity: Other (Left leg tenderness) Neurological/Psych: Oriented x3, Normal Speech, Normal Cognition Gait: Steady ED Course And Treatment - Laboratory Results Result Diagrams: 07/29/16 20:34 07/29/16 20:34 ECG: Interpreted By Me, Viewed By Me ECG Rhythm: Sinus Rhythm, 1st Degree HB ECG Interpretation: Normal O2 Sat by Pulse Oximetry: 98 - Radiology CXR: Interpreted by Me CXR Interpretation: Yes: Other (improved from prior) Medical Decision Making Medical Decision Making: Pt stable in the ED ' No indication of DVT / PE Explained [place] policy on narcotics PlaN DC HOME, with gabapentin Disposition Counseled Patient/Family Regarding: Diagnosis, Need For Followup - Disposition Disposition: HOME/ ROUTINE Disposition Time: 21:57 Condition: GOOD Prescriptions: Gabapentin [Neurontin] 1 cap PO TID #50 cap Instructions: Chest Pain (ED), Chronic Pain (ED) - Clinical Impression Clinical Impression: Chest pain, Chronic leg pain
[2016-07-29] MEDS ORDERED: Oxycodone/Acetaminophen 5/325 mg Tab PO STA (20:26)
[2016-07-29 20:39] LABS: BASO # 0.1 K/uL (0.0-0.2); BASO % 1.1 % (0.0-2.0); EOS # 0.3 K/uL (0.0-0.7); EOS % 4.1 % (0.0-4.0); HEMATOCRIT 39.4 % (34.0-47.0); LYMPH # 2.6 K/uL (1.0-4.3); MEAN CELL VOLUME 85.9 fL (81.0-99.0); MEAN CORPUSCULAR HEMOGLOBIN 27.4 pg (27.0-31.0); MEAN CORPUSCULAR HGB CONC 31.9 g/dL (33.0-37.0); MONO # 0.6 K/uL (0.0-0.8); MONO % 8.1 % (0.0-10.0); NRBC % 0.1 % (0.0-2.0); WHITE BLOOD COUNT 7.3 K/uL (4.8-10.8)
[2016-07-29 20:45] LABS: CHLORIDE 98 mmol/L (98-107); SODIUM 141 mmol/L (132-148)
[2016-07-29 20:47] LABS: ALB/GLOB RATIO 1.2 (1.0-2.1); AST/SGOT 23 U/L (14-36); BILIRUBIN,TOTAL 0.5 mg/dL (0.2-1.3); CARBON DIOXIDE 32 mmol/L (22-30); GFR AFRICAN-AMERICAN > 60; TOTAL PROTEIN 7.2 g/dL (6.3-8.3)
[2016-07-29 20:48] LABS: ALKALINE PHOSPHATASE 54 U/L (38-126); ALT/SGPT 27 U/L (9-52); BLOOD UREA NITROGEN 15 mg/dL (7-17); CALCIUM 8.5 mg/dl (8.6-10.4); GLUCOSE,RANDOM 89 mg/dL (65-105)
[2016-07-29] MEDS ORDERED: Albuterol 0.083% Inhal Sol (2.5 mg/3 mL) UD ONE (20:58)
[2016-07-29] MEDS ORDERED: Oxycodone/Acetaminophen 5/325 mg Tab ONE (20:58)
[2016-07-29] MEDS ORDERED: Albuterol 0.083% Inhal Sol (2.5 mg/3 mL) UD INH STA (21:08)
--- NOTE | 2016-07-30 08:45 | RAD ---
HISTORY: chest pain, hx pnx 2 wks ago COMPARISON: 07/21/2016. TECHNIQUE: Chest PA and lateral FINDINGS: LUNGS: Resolving opacity in the right lower lung. PLEURA: No significant pleural effusion identified. No pneumothorax apparent. CARDIOVASCULAR: Normal. OSSEOUS STRUCTURES: No significant abnormalities. VISUALIZED UPPER ABDOMEN: Normal. OTHER FINDINGS: None. IMPRESSION: Resolving opacity in the right lower lung. Follow-up to complete resolution recommended.
--- NOTE | 2016-07-31 15:00 | CARD ---
APPROVED REPORT EKG Measurement Heart [id number] <Conclusion> Sinus rhythm with 1st degree AV block Otherwise normal ECG
== END 2016-07-29 22:15 | disposition home or self-care (01) ==
LOC: C.ER 17:54
DX: R07.89 Other chest pain (principal); G89.29 Other chronic pain; M79.605 Pain in left leg

== ENCOUNTER 2016-08-15 16:21 | Emergency (ER) | payer MEDICAID ==
[2016-08-15 16:28] VITALS: RESP 18; TEMP 97.8; O2SAT 98
--- NOTE | 2016-08-15 17:17 | C.PDOC ---
History Of Present Illness The patient, a 50 y/o female, presents to the ED for evaluation of left knee pain associated with intermittent swelling which began around 1 month ago. Patient states she has been taking Ibuprofen 800mg without relief. Otherwise, she denies fever, chills, or recent falls/injuries. Time Seen by Provider: 08/15/16 16:41 Chief Complaint (Nursing): Lower Extremity Problem/Injury History Per: Patient History/Exam Limitations: no limitations Onset/Duration Of Symptoms: Intermittent Episodes (around 1 month ) Current Symptoms Are (Timing): Still Present Additional History Per: Patient - Knee Description Of Injury: denies: Fell, Struck With Object, Struck Against Object Past Medical History Reviewed: Historical Data, Nursing Documentation, Vital Signs Vital Signs: Last Vital Signs Temp 97.8 F 08/15/16 16:25 Pulse 71 08/15/16 17:25 Resp 18 08/15/16 17:25 BP 124/78 08/15/16 17:25 Pulse Ox 98 08/15/16 19:03 - Medical History PMH: Asthma, Bipolar Disorder, HTN, Pneumonia (2016) Surgical History: No Surg Hx Family History: States: Unknown Family Hx - Social History Hx Alcohol Use: No Hx Substance Use: No - Immunization History Hx Tetanus Toxoid Vaccination: No Hx Influenza Vaccination: Yes Hx Pneumococcal Vaccination: No Review Of Systems Except As Marked, All Systems Reviewed And Found Negative. Constitutional: Negative for: Fever, Chills Musculoskeletal: Positive for: Other (left knee pain and occasional swelling ) Physical Exam - Physical Exam Appears: Non-toxic, No Acute Distress, Other (morbidly obese ) Skin: Normal Color, Warm, Dry Head: Atraumatic, Normacephalic Eye(s): bilateral: Normal Inspection Oral Mucosa: Moist Neck: Supple Chest: Symmetrical, No Deformity, No Tenderness Cardiovascular: Rhythm Regular, No Murmur Respiratory: Normal Breath Sounds, No Rales, No Rhonchi, No Wheezing Extremity: Normal ROM, Tenderness (to anterior and medial aspect of left knee ) , No Calf Tenderness, Capillary Refill (less than 2 seconds), No Deformity, No Swelling Pulses: Left Dorsalis Pedis: Normal, Right Dorsalis Pedis: Normal Neurological/Psych: Oriented x3, Normal Speech, Normal Cognition Gait: Steady ED Course And Treatment O2 Sat by Pulse Oximetry: 98 - Other Rad Left Knee XR X-Ray: Interpreted by Me, Viewed By Me, Read By Radiologist Interpretation: Accession No. : [id number]. Patient Name / ID : MELLISA STEWART / [id number]. Exam Date : 08/15/2016 16:53:20 ( Approved ). Study Comment : Sex / Age : F / 50Y. Creator : David Mccloud MD. Dictator : David Mccloud MD. Printer Slotter Feeder : Cold Type Artist : David Mccloud MD. Approver2 : Report Date : 08/15/2016 18:33:56. My Comment : . Left knee three views. History: Pain. Comparison: None available. Findings: Moderate medial compartment joint space narrowing. Moderate suprapatellar joint effusion. No evidence of acute displaced fracture or dislocation. Impression: Moderate medial compartment joint space narrowing. Moderate suprapatellar joint effusion. No evidence of acute displaced fracture or dislocation. If pain persists, consider MRI. Medical Decision Making Medical Decision Making: Impression: 50 y/o female with left knee pain and occasional swelling Plan: * Left knee XR * Toradol IM * reassess and disposition Progress Notes: Left knee XR ordered and reviewed. Patient received Toradol IM. Miguel Angel bandage applied and crutches provided with proper instructions by CP. Disposition Counseled Patient/Family Regarding: Need For Followup, Rx Given - Disposition Referrals: Brandon Reagan MD [Staff Provider] - Disposition: HOME/ ROUTINE Disposition Time: 17:16 Condition: STABLE Additional Instructions: Your xray is normal, no fracture. Please apply ice to area 15-20 min two to three times per day. Take Motrin or other anti-inflammatory medication, with food to not upset stomach. Follow up with orthopedic if pain persists over one week. Prescriptions: traMADol [Ultram] 50 mg PO Q8 #14 tab Instructions: Knee Pain (ED) - POA Present On Arrival: None - Clinical Impression Clinical Impression: Arthralgia of knee - PA / CROSSING SUPERVISOR / Resident Statement /DO has reviewed & agrees with the documentation as recorded. - Scribe Statement The provider has reviewed the documentation as recorded by the Scribe (Alejandra Ortiz) All medical record entries made by the Scribe were at my direction and personally dictated by me. I have reviewed the chart and agree that the record accurately reflects my personal performance of the history, physical exam, medical decision making, and the department course for this patient. I have also personally directed, reviewed, and agree with the discharge instructions and disposition.
[2016-08-15 17:28] VITALS: BP 124/78; PULSE 71
--- NOTE | 2016-08-15 18:35 | RAD ---
Left knee three views History: Pain. Comparison: None available. Findings: Moderate medial compartment joint space narrowing. Moderate suprapatellar joint effusion. No evidence of acute displaced fracture or dislocation. Impression: Moderate medial compartment joint space narrowing. Moderate suprapatellar joint effusion. No evidence of acute displaced fracture or dislocation. If pain persists, consider MRI.
== END 2016-08-15 17:58 | disposition home or self-care (01) ==
LOC: C.ER 16:21
DX: M25.562 Pain in left knee (principal)
CPT/HCPCS: 73562; 96372; 99285; J1885

== ENCOUNTER 2016-09-08 18:59 | Inpatient (IN) | payer MEDICAID ==
--- NOTE | 2016-09-08 19:40 | C.PDOC ---
History Of Present Illness Patient presents to the ER with a complaint of SOB and wheezing for the past 2 days. Patient states it worsened today and called 911. Patient is currently speaking in complete sentences, denies chest pain, nausea, fever, chills, or vomiting. Time Seen by Provider: 09/08/16 19:40 Chief Complaint (Nursing): Shortness Of Breath History Per: Patient History/Exam Limitations: no limitations Onset/Duration Of Symptoms: Days (2) Current Symptoms Are (Timing): Still Present Initiating Event: Other (Not known) Quality: Other (SOB) Exacerbating Factor(s): Other (Not known) Current Respiratory Medications: Other (Not known) Severity: Mild Pain Scale Rating Of: 3 Associated Symptoms: Other (SOB, wheezing). denies: Fever, Chills, Chest Pain Recent travel outside of the [place]: No Past Medical History Reviewed: Historical Data, Nursing Documentation, Vital Signs Vital Signs: Last Vital Signs Temp 98.9 F 09/08/16 22:54 Pulse 90 09/08/16 22:54 Resp 18 09/08/16 22:54 BP 108/40 L 09/08/16 22:54 Pulse Ox 95 09/08/16 22:54 - Medical History PMH: Asthma, Bipolar Disorder, HTN, Pneumonia (2016) Surgical History: No Surg Hx Family History: States: No Known Family Hx - Social History Hx Alcohol Use: No Hx Substance Use: No - Immunization History Hx Tetanus Toxoid Vaccination: No Hx Influenza Vaccination: Yes Hx Pneumococcal Vaccination: No Review Of Systems Constitutional: Negative for: Fever, Chills ENT: Negative for: Throat Pain Cardiovascular: Negative for: Chest Pain Respiratory: Positive for: Shortness of Breath, Wheezing Gastrointestinal: Negative for: Nausea, Vomiting Genitourinary: Negative for: Dysuria Musculoskeletal: Negative for: Back Pain Skin: Negative for: Rash, Lesions, Jaundice Neurological: Negative for: Weakness Psych: Negative for: Anxiety Physical Exam - Physical Exam Appears: Well, Non-toxic, Other (Morbidly obese) Skin: Warm, Dry Head: Atraumatic Oral Mucosa: Moist Neck: No Supple Chest: Symmetrical, No Tenderness Cardiovascular: Rhythm Regular, No Murmur Respiratory: No Rales, No Rhonchi, Wheezing (Bilateral) Gastrointestinal/Abdominal: Soft, No Tenderness, Other (Obese) Back: Normal Inspection Extremity: Normal ROM Extremity: Bilateral: Atraumatic Neurological/Psych: Oriented x3 Gait: Steady ED Course And Treatment - Laboratory Results Result Diagrams: 09/09/16 00:07 O2 Sat by Pulse Oximetry: 96 Pulse Ox Interpretation: Normal Progress Note: Solu-medrol IVP and nebulizer treatment administered. Critical Care Time - Critical Care Note Total Time (in mins): 30 Documented critical care: time excludes all time spent performing seperately billable procedures. Disposition Discussed With Dr.: Shanna Cortes Comment: accepted the pt onhis service and took over the care at 12:30 AM Doctor Will See Patient In The: Hospital Counseled Patient/Family Regarding: Studies Performed, Diagnosis - Disposition Disposition: HOSPITALIZED Disposition Time: 19:40 Condition: FAIR - POA Present On Arrival: None - Clinical Impression Clinical Impression: Asthma exacerbation - Scribe Statement The provider has reviewed the documentation as recorded by the Scribe Butch Horta All medical record entries made by the Scribe were at my direction and personally dictated by me. I have reviewed the chart and agree that the record accurately reflects my personal performance of the history, physical exam, medical decision making, and the department course for this patient. I have also personally directed, reviewed, and agree with the discharge instructions and disposition. Decision To Admit - Pt Status Changed To: Hospital Disposition Of: Inpatient - Admit Certification Admit to Inpatient:: After my assessment, the patient will require hospitalization for at least two midnights. This is because of the severity of symptoms shown, intensity of services needed, and/or the medical risk in this patient being treated as an outpatient. - InPatient: Physician Admission Certification: I certify that this patient requires 2 or more midnights of care for the following reason:: After my assessment, the patient will require hospitalization for at least two midnights. This is because of the severity of symptoms shown, intensity of services needed, and/or the medical risk in this patient being treated as an outpatient. - . Bed Request Type: Regular Admitting Physician: Shanna Cortes Patient Diagnosis: Asthma exacerbation
[2016-09-08] MEDS ORDERED: MethylPREDNISolone 40 mg Vial IVP STA (19:47)
[2016-09-08] MEDS ORDERED: Albuterol-Ipratrop 3 mg / 0.5 (3 ml) UD ONE (19:58)
[2016-09-08] MEDS: Albuterol-Ipratrop 3 mg / 0.5 (3 ml) UD IH SCH ×3 (20:09→20:40)
[2016-09-08] MEDS ORDERED: DiphenhydrAMINE 50 mg/ml Inj ONE (21:19)
[2016-09-08] MEDS ORDERED: DiphenhydrAMINE 50 mg/ml Inj IVP STA (21:26)
[2016-09-08] MEDS ORDERED: Sodium Chloride 0.9% 1,000 ML IV ONE (23:54)
[2016-09-09 00:11] LABS: BASO # 0.1 K/uL (0.0-0.2); BASO % 0.8 % (0.0-2.0); EOS # 0.1 K/uL (0.0-0.7); EOS % 1.4 % (0.0-4.0); HEMATOCRIT 39.4 % (34.0-47.0); LYMPH # 1.3 K/uL (1.0-4.3); MEAN CELL VOLUME 85.3 fL (81.0-99.0); MEAN CORPUSCULAR HEMOGLOBIN 27.9 pg (27.0-31.0); MEAN CORPUSCULAR HGB CONC 32.7 g/dL (33.0-37.0); MEAN PLATELET VOLUME 9.8 fL (7.2-11.7); MONO # 0.2 K/uL (0.0-0.8); RED CELL DISTRIBUTION WIDTH 14.4 % (11.5-14.5)
[2016-09-09] MEDS ORDERED: Albuterol HFA 90 mcg/actuation (8 g) IH PRN ×2 (00:34→15:45)
[2016-09-09 00:52] LABS: CHLORIDE 103 mmol/L (98-107); SODIUM 142 mmol/L (132-148)
[2016-09-09 00:53] LABS: POTASSIUM 3.5 mmol/L (3.6-5.2)
[2016-09-09 00:55] LABS: ALB/GLOB RATIO 1.3 (1.0-2.1); ALKALINE PHOSPHATASE 58 U/L (38-126); AST/SGOT 27 U/L (14-36); BLOOD UREA NITROGEN 15 mg/dL (7-17); CARBON DIOXIDE 27 mmol/L (22-30); GFR AFRICAN-AMERICAN > 60; GLUCOSE,RANDOM 90 mg/dL (65-105); TOTAL PROTEIN 7.5 g/dL (6.3-8.3)
[2016-09-09 00:56] LABS: ALT/SGPT 13 U/L (9-52); CALCIUM 8.8 mg/dl (8.6-10.4)
[2016-09-09 07:54] LABS: BASO % 0.2 % (0.0-2.0); HEMATOCRIT 37.9 % (34.0-47.0); LYMPH # 0.5 K/uL (1.0-4.3); LYMPH % 10.3 % (20.0-40.0); MEAN CELL VOLUME 85.6 fL (81.0-99.0); MEAN CORPUSCULAR HEMOGLOBIN 28.2 pg (27.0-31.0); MEAN CORPUSCULAR HGB CONC 32.9 g/dL (33.0-37.0); MEAN PLATELET VOLUME 9.2 fL (7.2-11.7); MONO % 0.7 % (0.0-10.0); NRBC % 0.1 % (0.0-2.0); RED CELL DISTRIBUTION WIDTH 14.5 % (11.5-14.5); WHITE BLOOD COUNT 4.8 K/uL (4.8-10.8)
[2016-09-09 08:02] VITALS: RESP 20
[2016-09-09 08:07] LABS: CHLORIDE 104 mmol/L (98-107)
[2016-09-09 08:08] LABS: POTASSIUM 4.4 mmol/L (3.6-5.2); SODIUM 142 mmol/L (132-148)
[2016-09-09 08:10] LABS: CARBON DIOXIDE 26 mmol/L (22-30); GFR AFRICAN-AMERICAN > 60
[2016-09-09 08:11] LABS: ALB/GLOB RATIO 1.2 (1.0-2.1); ALKALINE PHOSPHATASE 54 U/L (38-126); ALT/SGPT 17 U/L (9-52); AST/SGOT 23 U/L (14-36); BILIRUBIN,TOTAL 0.8 mg/dL (0.2-1.3); BLOOD UREA NITROGEN 13 mg/dL (7-17); CALCIUM 8.4 mg/dl (8.6-10.4); GLUCOSE,RANDOM 156 mg/dL (65-105); TOTAL PROTEIN 7.5 g/dL (6.3-8.3)
[2016-09-09 08:22] LABS: RBC URINE 1 /hpf (0-3); URINE BACTERIA RARE (<OCC); URINE BILIRUBIN NEGATIVE (NEGATIVE); URINE BLOOD NEGATIVE (NEGATIVE); URINE COLOR Yellow (YELLOW); URINE GLUCOSE (UA) NORMAL (Normal); URINE KETONE NEGATIVE (NEGATIVE); URINE LEUKOCYTE ESTERASE NEG Leu/uL (Negative); URINE PROTEIN NEGATIVE (NEGATIVE); URINE UROBILINOGEN NORMAL mg/dL (0.2-1.0); WBC URINE 1 /hpf (0-5)
--- NOTE | 2016-09-09 08:40 | RAD ---
PROCEDURE: CHEST RADIOGRAPH, 1 VIEW HISTORY: SOB COMPARISON: 07/29/2016 FINDINGS: LUNGS: Mild venous congestion. PLEURA: No pneumothorax or pleural fluid seen. CARDIOVASCULAR: Normal. OSSEOUS STRUCTURES: No significant abnormalities. VISUALIZED UPPER ABDOMEN: Normal. OTHER FINDINGS: None. IMPRESSION: Mild venous congestion.
[2016-09-09] MEDS: Albuterol-Ipratrop 3 mg / 0.5 (3 ml) UD INH SCH ×4 (09:18→19:00)
[2016-09-09] MEDS: Enoxaparin 60 mg Syringe SC SCH (09:26)
[2016-09-09] MEDS ORDERED: Enoxaparin 30 mg Syringe SC SCH (10:00)
[2016-09-09] MEDS ORDERED: DiphenhydrAMINE 50 mg/ml Inj IVP STA (11:08)
--- NOTE | 2016-09-09 13:12 | CP.PCM.HP ---
History of Present Illness - History of Present Illness History of Present Illness: COMPREHENSIVE HISTORY & PHYSICAL EXAM HPI H/O ASTHMA ADMITTED FROM ER WITH SOB , WHEEZING AND NOT RESPONDING TO ORAL MEDS PAST HIST. HTN/BIPOLAR/PNEUMONIA PERSONAL HIST: Smoking. N Alcohol. N Allergy N Travel_- . FAMILY HIST : ROS : Constitutional: Negative for weight change, chills, night sweats, fatigue and usage of assist device. Eyes: Negative for redness, swelling, itching, discharge, vision changes, blurry vision, double vision, glaucoma, cataracts, Ears: Negative for hearing loss, ringing, , tinnitus, vertigo Nose: Negative for rhinorrhea, stuffiness, sniffing, itching, postnasal drip, discoloration, nasal congestion and epistaxis. Throat: Negative for throat clearing, sore throat, hoarseness, difficulty swallowing and difficulty speaking. Respiratory POS for cough, chest tightness, sputum or phlegm, chronic cough, NO hemoptysis, , snoring at night, pleuritic chest pain and daytime somnolence. Cardiovascular: Negative for chest pain, palpitations, orthopnea, PND, Edema of legs, leg cramps, angina, claudication, , irregular heartbeat, Neurology: Negative for irritability, muscle weakness, numbness and tingling, seizures, tremors, migraines, slurred speech, syncope, memory loss, mood changes , recurrent headaches Gastrointestinal: Negative for difficulty swallowing, diarrhea, constipation, black stools, rectal bleeding, nausea, flatulence, reflux, poor appetite, changes in bowel habits, abdominal pain Genitourinary: Negative for frequent urination, hematuria, discharge, incontinence, urinary retention, frequent UTI, Psychiatric: Negative for depression, anxiety/panic, suicidal tendencies, Musculoskeletal: Negative for swollen joints, back pain, , neck pain, morning stiffness of joints, . Skin: Negative for rash, ulcers, itching, dry skin and pigmented lesions. P/E: Constitutional: Appears stated age and in no apparent distress. Head: Normocephalic. Ears: External ear canals patent without inflammation. Tympanic membranes intact with normal light reflex and landmark. Eyes: Pupils are central, bilaterally equal, symmetrical and reacts to light with normal movements and no icterus or pallor. Nose: External nares are patent. Mucosa is pink Mouth-Throat: Good general appearance and condition. No post-pharyngeal/oropharyngeal erythema and tonsillar hypertrophy. Good dental hygiene. Neck-Lymphatic: Neck is supple with normal ROM, no thyromegaly, lymph nodes or masses. JVD is normal with no carotid bruit. Lungs BELGICA WHEEZING . Cardiovascular: S1 and S2 are normal with no murmurs, gallops and rub. GI Exam: No hepatomegaly. Abdomen is soft and non-tender. No Organomegaly , masses or hernias are evident and bowel sounds are normal and active. Neurology: Higher function and all cranial nerves intact, with no gross motor or sensory deficit. Superficial and deep reflexes are normal with downwards planters. No cerebellar deficit with normal gait. Musculoskeletal: No tender spots with normal curvature of the spine with no swelling or restricted ROM of the small and large joints. Extremities: Homans sign absent. Intact pulses with no pitting edema, calf tenderness or skin color changes. Skin: No rash, eruptions or abnormal skin pigmentation LAB/RADIOLOGY: ASSESMENT : BRONCHIAL ASTHMA WITH EXACERBATION HTN PLAN: SEE OREDS Present on Admission - Present on Admission Any Indicators Present on Admission: No Past Patient History - Infectious Disease Hx of Infectious Diseases: None - Past Medical History & Family History Past Medical History?: Yes - Past Social History Smoking Status: Former Smoker - CARDIAC Hx Cardiac Disorders: Yes Hx Hypertension: Yes - PULMONARY Hx Respiratory Disorders: Yes Hx Asthma: Yes Hx Pneumonia: Yes (2016) - NEUROLOGICAL Hx Neurological Disorder: No - HEENT Hx HEENT Problems: No - RENAL Hx Chronic Kidney Disease: No - ENDOCRINE/METABOLIC Hx Endocrine Disorders: No - HEMATOLOGICAL/ONCOLOGICAL Hx Blood Disorders: No - INTEGUMENTARY Hx Dermatological Problems: No - MUSCULOSKELETAL/RHEUMATOLOGICAL Hx Musculoskeletal Disorders: No Hx Falls: No - GASTROINTESTINAL Hx Gastrointestinal Disorders: No Other/Comment: HERNIA REPAIR - GENITOURINARY/GYNECOLOGICAL Hx Genitourinary Disorders: No - PSYCHIATRIC Hx Psychophysiologic Disorder: Yes Hx Bipolar Disorder: Yes Hx Substance Use: No - SURGICAL HISTORY Hx Surgeries: Yes Hx Section: Yes (x5) Hx Herniorrhaphy: Yes - ANESTHESIA Hx Anesthesia: Yes Hx Anesthesia Reactions: No Hx Malignant Hyperthermia: No Has any member of the family had a problem w/ anesthesia?: No Meds Allergies/Adverse Reactions: Allergies Allergy/AdvReac Type Severity Reaction Status Date / Time No Known Allergies Allergy Verified 09/08/16 19:03 Results - Vital Signs Recent Vital Signs: Last Vital Signs Temp 97.8 F 09/09/16 08:01 Pulse 96 H 09/09/16 08:01 Resp 20 09/09/16 08:01 BP 162/67 H 09/09/16 08:01 Pulse Ox 96 09/09/16 08:01 - Labs Result Diagrams: 09/09/16 07:42 09/09/16 07:42 Labs: Laboratory Results - last 24 hr 09/09/16 09/09/16 09/09/16 07:42 07:42 07:58 WBC 4.8 RBC 4.43 Hgb 12.5 Hct 37.9 MCV 85.6 MCH 28.2 MCHC 32.9 L RDW 14.5 Plt Count 224 MPV 9.2 Neut % (Auto) 88.8 H Lymph % (Auto) 10.3 L [place] % (Auto) 0.7 Eos % (Auto) 0.0 Baso % (Auto) 0.2 Neut # 4.3 Lymph # 0.5 L [place] # 0.0 Eos # 0.0 Baso # 0.0 Sodium 142 Potassium 4.4 Chloride 104 Carbon Dioxide 26 Anion Gap 15 BUN 13 Creatinine 0.5 L Est GFR ( Amer) > 60 Est GFR (Non-Af Amer) > 60 Random Glucose 156 H Calcium 8.4 L Total Bilirubin 0.8 AST 23 ALT 17 Alkaline Phosphatase 54 Total Protein 7.5 Albumin 4.1 Globulin 3.4 Albumin/Globulin Ratio 1.2 Urine Color Yellow Urine Clarity Clear Urine pH 5.0 Ur Specific Kinde 1.027 Urine Protein Negative Urine Glucose (UA) Normal Urine Ketones Negative Urine Blood Negative Urine Nitrate Negative Urine Bilirubin Negative Urine Urobilinogen Normal Ur Leukocyte Esterase Neg Urine WBC (Auto) 1 Urine RBC (Auto) 1 Ur Squamous Epith Cells 3 Urine Bacteria Rare
[2016-09-10] MEDS: Albuterol-Ipratrop 3 mg / 0.5 (3 ml) UD INH SCH ×4 (00:44→15:52)
[2016-09-10 08:23] LABS: BASO # 0.1 K/uL (0.0-0.2); BASO % 0.8 % (0.0-2.0); EOS # 0.1 K/uL (0.0-0.7); EOS % 2.1 % (0.0-4.0); HEMATOCRIT 37.3 % (34.0-47.0); LYMPH % 30.5 % (20.0-40.0); MEAN CORPUSCULAR HEMOGLOBIN 27.4 pg (27.0-31.0); MEAN CORPUSCULAR HGB CONC 31.9 g/dL (33.0-37.0); MEAN PLATELET VOLUME 9.1 fL (7.2-11.7); MONO # 0.4 K/uL (0.0-0.8); MONO % 5.4 % (0.0-10.0); RED CELL DISTRIBUTION WIDTH 14.8 % (11.5-14.5); WHITE BLOOD COUNT 6.5 K/uL (4.8-10.8)
[2016-09-10 08:48] LABS: CHLORIDE 104 mmol/L (98-107); SODIUM 144 mmol/L (132-148)
[2016-09-10 08:49] LABS: POTASSIUM 3.9 mmol/L (3.6-5.2)
[2016-09-10 08:51] LABS: ALB/GLOB RATIO 1.2 (1.0-2.1); ALKALINE PHOSPHATASE 49 U/L (38-126); ALT/SGPT 9 U/L (9-52); AST/SGOT 22 U/L (14-36); BILIRUBIN,TOTAL 0.9 mg/dL (0.2-1.3); BLOOD UREA NITROGEN 15 mg/dL (7-17); CALCIUM 8.4 mg/dl (8.6-10.4); CARBON DIOXIDE 31 mmol/L (22-30); GFR AFRICAN-AMERICAN > 60; GLUCOSE,RANDOM 91 mg/dL (65-105); TOTAL PROTEIN 7.1 g/dL (6.3-8.3)
[2016-09-10] MEDS: Enoxaparin 60 mg Syringe SC SCH (09:55)
--- NOTE | 2016-09-10 13:08 | CP.PCM.PN ---
Subjective - Date & Time of Evaluation Date of Evaluation: 09/10/16 Time of Evaluation: 13:07 - Subjective Subjective: CHIEF COMPLAINTS TODAY : LESS SOB/WHEEZING ROS. HEENT : N. Resp : POS cough, wheezing , NO pleuritic CP ,or hemoptysis Cardio : No anginal CP, PND, orthopnea, palpitation GI : No abd.pain, n/v ,diarrhea or GI bleeding . [employer] : No headache, vertigo, focal deficit. Musculoskel : No joint swelling , Derm : No rash Psych : Normal affect. Ext : No swelling ,calf pain PE. Pt. is alert awake in no distress. V.S As noted in the chart Head ,ear nose,throat and eyes : Normal. Neck : Supple with normal carotids. Lungs: BELGICA RONCHI Heart : S1 & S2 normal with S4. No murmur. Abd : Soft non tender with normal bowel sounds. Neuro : Moves all ext. with no localized deficit. Ext : No edema with intact pulses.Non tender calves Derm : No rashes or decubitus ulcer. LABS/RADIOLOGY: ASSESSMENT/PLAN : CONT IV STEROIDS /AB Objective - Vital Signs/Intake and Output Vital Signs (last 24 hours): Temp Pulse Resp BP Pulse Ox 98.3 F 81 20 135/88 96 09/10/16 08:59 09/10/16 08:59 09/10/16 08:59 09/10/16 09:54 09/10/16 08:59 Intake and Output: 09/10/16 09/10/16 11:59 23:59 Intake Total 150 Balance 150 - Medications Medications: Current Medications Albuterol (Ventolin Hfa 90 Mcg/Actuation (8 G)) 90 puff IH RQ4 PRN PRN Reason: Wheezing Albuterol/Ipratropium (Duoneb 3 Mg/0.5 Mg (3 Ml) Ud) 3 ml INH RQ4 [facility] [place] Last Admin: 09/10/16 11:19 Dose: 3 ml Enoxaparin Sodium (Lovenox) 60 mg SC DAILY [facility] [place] Last Admin: 09/10/16 09:55 Dose: 60 mg Furosemide (Lasix) 20 mg PO DAILY [facility] [place] Last Admin: 09/10/16 09:54 Dose: 20 mg Gabapentin (Neurontin) 100 mg PO TID [facility] [place] Last Admin: 09/10/16 09:54 Dose: 100 mg Lisinopril (Zestril) 5 mg PO DAILY [facility] Last Admin: 09/10/16 09:55 Dose: 5 mg Tramadol HCl (Ultram) 50 mg PO Q8 PRN PRN Reason: Pain, moderate (4-7) - Labs Labs: 09/10/16 08:15 09/10/16 08:15
[2016-09-10] MEDS ORDERED: cefTRIAXone IV 1 gm in Dextros 50 ML IVPB SCH (14:00)
--- NOTE | 2016-09-10 17:42 | CP.PCM.PN ---
Subjective - Date & Time of Evaluation Date of Evaluation: 09/10/16 Time of Evaluation: 11:00 - Subjective Subjective: Alert, oriented, no acute wheezing, oxygen saturation stable. Objective - Vital Signs/Intake and Output Vital Signs (last 24 hours): Temp Pulse Resp BP Pulse Ox 98.3 F 81 20 135/88 96 09/10/16 08:59 09/10/16 08:59 09/10/16 08:59 09/10/16 09:54 09/10/16 08:59 Intake and Output: 09/10/16 09/10/16 06:59 18:59 Intake Total 650 Balance 650 - Medications Medications: Current Medications Albuterol (Ventolin Hfa 90 Mcg/Actuation (8 G)) 90 puff IH RQ4 PRN PRN Reason: Wheezing Albuterol/Ipratropium (Duoneb 3 Mg/0.5 Mg (3 Ml) Ud) 3 ml INH RQ4 [facility] Last Admin: 09/10/16 15:52 Dose: 3 ml Enoxaparin Sodium (Lovenox) 60 mg SC DAILY [facility] Last Admin: 09/10/16 09:55 Dose: 60 mg Furosemide (Lasix) 20 mg PO DAILY [facility] Last Admin: 09/10/16 09:54 Dose: 20 mg Gabapentin (Neurontin) 100 mg PO TID [facility] Last Admin: 09/10/16 13:12 Dose: 100 mg Ceftriaxone Sodium (Rocephin Iv 1 Gm Duplex) 50 mls @ 100 mls/hr IVPB DAILY [facility] Last Admin: 09/10/16 13:51 Dose: Not Given Lisinopril (Zestril) 5 mg PO DAILY [facility] Last Admin: 09/10/16 09:55 Dose: 5 mg Methylprednisolone (Solu-Medrol) 125 mg IV Q12 [facility] Last Admin: 09/10/16 13:50 Dose: Not Given Tramadol HCl (Ultram) 50 mg PO Q8 PRN PRN Reason: Pain, moderate (4-7) - Labs Labs: 09/10/16 08:15 09/10/16 08:15 Assessment and Plan - Assessment and Plan (Free Text) Assessment: Patient is seen and examined. Feeling much much better. Ambulates well, oxygen saturation remains > 95% after walking in the hallway.D/W DR Cortes, discharge plan for today on medrol dose pack and levaquin. To follow up in the office in 1 week. 5
[2016-09-10 17:54] VITALS: BP 176/108; PULSE 89; TEMP 98.4; O2SAT 95
== END 2016-09-10 17:30 | disposition home or self-care (01) | DRG 97 ==
LOC: C.ER 18:59 → C.3T 09-09 00:29
PROVIDERS: ADMIT Internal Medicine Cardiovascular Disease; ATTEND Internal Medicine Cardiovascular Disease
DX: J45.901 Unspecified asthma with (acute) exacerbation (principal); E66.01 Morbid (severe) obesity due to excess calories; I10 Essential (primary) hypertension; F31.9 Bipolar disorder, unspecified; Z87.891 Personal history of nicotine dependence

== ENCOUNTER 2016-12-17 18:13 | Emergency (ER) | payer MEDICAID ==
[2016-12-17 18:21] VITALS: O2SAT 97
[2016-12-17 18:40] LABS: BASO # 0.1 K/uL (0.0-0.2); BASO % 0.9 % (0.0-2.0); EOS # 0.2 K/uL (0.0-0.7); EOS % 3.7 % (0.0-4.0); HEMATOCRIT 38.1 % (34.0-47.0); LYMPH # 2.1 K/uL (1.0-4.3); LYMPH % 32.3 % (20.0-40.0); MEAN CELL VOLUME 83.8 fL (81.0-99.0); MEAN CORPUSCULAR HEMOGLOBIN 27.4 pg (27.0-31.0); MEAN CORPUSCULAR HGB CONC 32.7 g/dL (33.0-37.0); MEAN PLATELET VOLUME 8.7 fL (7.2-11.7); MONO # 0.5 K/uL (0.0-0.8); MONO % 7.3 % (0.0-10.0); RED CELL DISTRIBUTION WIDTH 14.3 % (11.5-14.5); WHITE BLOOD COUNT 6.6 K/uL (4.8-10.8)
[2016-12-17 18:48] LABS: CHLORIDE 102 mmol/L (98-107); POTASSIUM 3.8 mmol/L (3.6-5.2); SODIUM 141 mmol/L (132-148)
[2016-12-17 18:50] LABS: BILIRUBIN,TOTAL 0.6 mg/dL (0.2-1.3); GFR AFRICAN-AMERICAN > 60
[2016-12-17 18:51] LABS: ALKALINE PHOSPHATASE 63 U/L (38-126); ALT/SGPT 31 U/L (9-52); AST/SGOT 24 U/L (14-36); BLOOD UREA NITROGEN 15 mg/dL (7-17); CARBON DIOXIDE 30 mmol/L (22-30); GLUCOSE,RANDOM 88 mg/dL (65-105); TOTAL PROTEIN 7.5 g/dL (6.3-8.3)
[2016-12-17 18:52] LABS: CALCIUM 9.4 mg/dl (8.6-10.4)
[2016-12-17] MEDS ORDERED: Albuterol 0.083% Inhal Sol (2.5 mg/3 mL) UD ONE (20:37)
[2016-12-17] MEDS ORDERED: Albuterol-Ipratrop 3 mg / 0.5 (3 ml) UD INH STA (20:46)
[2016-12-17] MEDS ORDERED: Albuterol-Ipratrop 3 mg / 0.5 (3 ml) UD ONE (20:55)
--- NOTE | 2016-12-17 21:25 | C.PDOC ---
History Of Present Illness 51 year old female presents to the emergency department with complaints of right knee pain, intermittent lightheadedness, and intermittent chest pain for the past two days. Patient notes left arm pain for "weeks" and denies change in diet, recent travel, or trauma. Time Seen by Provider: 12/17/16 18:23 Chief Complaint (Nursing): Chest Pain History Per: Patient History/Exam Limitations: no limitations Onset/Duration Of Symptoms: Days (2 days ), Intermittent Episodes, Persistent ( left arm pain for "weeks" ) Current Symptoms Are (Timing): Still Present Quality: "Pain" Associated Symptoms: denies: Nausea, Dyspnea, Diaphoresis, Syncope Recent travel outside of the [place]: No Past Medical History Reviewed: Historical Data, Nursing Documentation, Vital Signs Vital Signs: Last Vital Signs Temp 98.6 F 12/17/16 21:45 Pulse 92 H 12/17/16 21:45 Resp 24 12/17/16 21:45 BP 128/59 L 12/17/16 21:45 Pulse Ox 97 12/17/16 21:45 - Medical History PMH: Asthma, Bipolar Disorder, HTN, Pneumonia (2016) Family History: States: Unknown Family Hx - Social History Hx Alcohol Use: No Hx Substance Use: No - Immunization History Hx Tetanus Toxoid Vaccination: No Hx Influenza Vaccination: Yes Hx Pneumococcal Vaccination: No Review Of Systems Constitutional: Negative for: Fever, Chills Cardiovascular: Positive for: Chest Pain. Negative for: Palpitations Respiratory: Negative for: Cough, Shortness of Breath Gastrointestinal: Negative for: Nausea, Vomiting, Abdominal Pain, Diarrhea Musculoskeletal: Positive for: Leg Pain (right knee pain) Neurological: Positive for: Other (lightheadedness ). Negative for: Headache Physical Exam - Physical Exam Appears: Non-toxic, No Acute Distress, Other (Patient is morbidly obese) Skin: Warm, Dry Head: Atraumatic Eye(s): bilateral: Normal Inspection, PERRL, EOMI Oral Mucosa: Moist Neck: Supple Chest: Symmetrical, No Deformity, No Tenderness Cardiovascular: Rhythm Regular Respiratory: Normal Breath Sounds, No Rhonchi, No Wheezing Extremity: Normal ROM, No Tenderness, No Pedal Edema, No Calf Tenderness, Capillary Refill (good capillary refill, less than two seconds ), No Deformity, No Swelling Neurological/Psych: Oriented x3, Normal Speech, Normal Cognition, Normal Cranial Nerves, Normal Motor, Normal Sensation Gait: Steady ED Course And Treatment - Laboratory Results Result Diagrams: 12/17/16 18:37 12/17/16 18:37 ECG Rhythm: Sinus Rhythm (69 bpm ) Interpretation Of ECG: Sinus rhythm 69 bpm, first degree block. O2 Sat by Pulse Oximetry: 97 (room air ) Progress Note: CXR, EKG, and blood work were performed. Patient was given Toradol, prednisone, and Duoneb. Disposition - Disposition Referrals: Lalit Rosas, [Non-Staff] - Disposition: HOME/ ROUTINE Disposition Time: 20:30 Condition: GOOD Additional Instructions: Thank you for letting us take care of you today. Your provider was Dr. Colunga. You were treated for asthma exacerbation. The emergency medical care you received today was directed at your acute symptoms. If you were prescribed any medication, please fill it and take as directed. It may take several days for your symptoms to resolve. Return to the Emergency Department if your symptoms worsen, do not improve, or if you have any other problems. Please contact your doctor or call one of the physicians/clinics you have been referred to that are listed on the Patient Visit Information form that is included in your discharge packet. Bring any paperwork you were given at discharge with you along with any medications you are taking to your follow up visit. Our treatment cannot replace ongoing medical care by a primary care provider (PCP) outside of the emergency department. Thank you for allowing the [facility] team to be part of your care today. Follow up with your doctor in 2-3 days for re-evaluation and further management. Prescriptions: predniSONE [Prednisone] 40 mg PO DAILY #10 tab Instructions: Asthma (ED) Forms: [employer] (Albanian) - Clinical Impression Clinical Impression: Asthma - Scribe Statement The provider has reviewed the documentation as recorded by the Scribe Kianna Batres All medical record entries made by the Scribe were at my direction and personally dictated by me. I have reviewed the chart and agree that the record accurately reflects my personal performance of the history, physical exam, medical decision making, and the department course for this patient. I have also personally directed, reviewed, and agree with the discharge instructions and disposition.
[2016-12-17 22:26] VITALS: BP 128/59; PULSE 92; RESP 24; TEMP 98.6
--- NOTE | 2016-12-18 06:29 | RAD ---
PROCEDURE: CHEST RADIOGRAPH, 1 VIEW HISTORY: chest pain COMPARISON: Comparison is made to 09/09/2016 FINDINGS: LUNGS: No evidence of new infiltrate or consolidation in the lungs. PLEURA: No pneumothorax or pleural fluid seen. CARDIOVASCULAR: Normal. OSSEOUS STRUCTURES: No significant abnormalities. VISUALIZED UPPER ABDOMEN: Normal. OTHER FINDINGS: None. IMPRESSION: No active disease.
--- NOTE | 2016-12-18 06:30 | RAD ---
PROCEDURE: Right Knee Radiographs. HISTORY: r/o fx COMPARISON: None. FINDINGS: BONES: No evidence of acute fracture. JOINTS: Moderate osteoarthritic changes. JOINT EFFUSION: None. OTHER FINDINGS: None. IMPRESSION: No evidence of acute fracture or dislocation. [id number] osteoarthritic changes.
--- NOTE | 2016-12-20 20:50 | CARD ---
APPROVED REPORT EKG Measurement Heart [id number] NC 210P61 [id number] <Conclusion> Sinus rhythm with 1st degree AV block Otherwise normal ECG
== END 2016-12-17 21:45 | disposition home or self-care (01) ==
LOC: C.ER 18:13
DX: J45.901 Unspecified asthma with (acute) exacerbation (principal)
CPT/HCPCS: 71010; 73562; 80053; 84484; 85025; 96374; 99285; J1885

== ENCOUNTER 2016-12-17 22:31 | Inpatient (IN) | payer MEDICAID ==
[2016-12-18] MEDS ORDERED: Pneumococcal 23-Valent Vaccine IM ONE (02:07)
[2016-12-18] MEDS: Albuterol-Ipratrop 3 mg / 0.5 (3 ml) UD INH SCH ×6 (03:20→23:51)
[2016-12-18] MEDS ORDERED: Albuterol HFA 90 mcg/actuation (8 g) INH PRN (03:21)
--- NOTE | 2016-12-18 05:02 | C.PDOC ---
History Of Present Illness 51 year old female presents to the emergency department with complaints of right knee pain, intermittent lightheadedness, and intermittent chest pain for the past two days. Patient was evaluated and discharged after presenting with the same complaints earlier today. Patient also reports shortness of breath, but appears to be speaking in complete sentences. Patient notes left arm pain for "weeks" and denies change in diet, recent travel, or trauma. Chief Complaint (Nursing): Shortness Of Breath History Per: Patient History/Exam Limitations: no limitations Onset/Duration Of Symptoms: Hrs, Intermittent Episodes Current Symptoms Are (Timing): Still Present Reports Recently: Seen In ED, Treated By A Physician Additional History Per: Patient Past Medical History Reviewed: Historical Data, Nursing Documentation, Vital Signs Vital Signs: Last Vital Signs Temp 97.5 F L 12/20/16 08:36 Pulse 88 12/20/16 10:00 Resp 21 12/20/16 08:36 BP 143/86 12/20/16 08:36 Pulse Ox 98 12/20/16 08:36 - Medical History PMH: Anxiety, Arthritis, Asthma, Bipolar Disorder, COPD, Depression, HTN, Peripheral Edema, Pneumonia (2016) Surgical History: No Surg Hx Family History: States: Unknown Family Hx - Social History Hx Alcohol Use: No Hx Substance Use: No - Immunization History Hx Tetanus Toxoid Vaccination: No Hx Influenza Vaccination: Yes Hx Pneumococcal Vaccination: No Review Of Systems Constitutional: Negative for: Other (changes in diet ) Cardiovascular: Positive for: Chest Pain Respiratory: Positive for: Shortness of Breath Musculoskeletal: Positive for: Arm Pain (left ), Other (+right knee pain ) Neurological: Positive for: Other (+lightheadednes ) Physical Exam - Physical Exam Appears: Non-toxic, No Acute Distress Skin: Normal Color, Warm, Dry Head: Atraumatic, Normacephalic Eye(s): bilateral: Normal Inspection Oral Mucosa: Moist Neck: Supple Chest: Symmetrical, No Deformity, No Tenderness Cardiovascular: Rhythm Regular, No Murmur Respiratory: No Rales, No Rhonchi, Wheezing (minimal, expiratory ), Other (good air entry, speaking in complete sentences) Back: No Vertebral Tenderness Extremity: Normal ROM, No Tenderness, Capillary Refill (less than 2 seconds ), No Deformity, No Swelling Neurological/Psych: Oriented x3, Normal Speech, Normal Cognition Gait: Steady ED Course And Treatment - Laboratory Results Result Diagrams: 12/20/16 11:07 12/20/16 08:23 O2 Sat by Pulse Oximetry: 95 (on RA) Pulse Ox Interpretation: Normal Disposition - Disposition Disposition: HOME/ ROUTINE Disposition Time: 23:00 Condition: STABLE - Clinical Impression Clinical Impression: COPD exacerbation - Scribe Statement The provider has reviewed the documentation as recorded by the Scribe (Alejandra Oritz) Provider Attestation: All medical record entries made by the Scribe were at my direction and personally dictated by me. I have reviewed the chart and agree that the record accurately reflects my personal performance of the history, physical exam, medical decision making, and the department course for this patient. I have also personally directed, reviewed, and agree with the discharge instructions and disposition.
[2016-12-18] MEDS: MethylPREDNISolone 40 mg Vial IVP SCH ×3 (05:06→21:08)
[2016-12-18] MEDS: Fluticasone-Salmeterol 250-50mcg Diskus INH SCH ×2 (08:00→19:41)
[2016-12-18] MEDS: Pantoprazole 40 mg EC Tab PO SCH (10:30)
[2016-12-18] MEDS: Enoxaparin 40 mg Syringe SC SCH (10:30)
[2016-12-18] MEDS: Moxifloxacin IV 400mg/250ml NS 400 MG/250 ML BAG IVPB SCH (11:01)
--- NOTE | 2016-12-18 11:38 | CP.PCM.HP ---
Past Patient History - Infectious Disease Hx of Infectious Diseases: None - Past Medical History & Family History Past Medical History?: Yes - Past Social History Smoking Status: Never Smoked - CARDIAC Hx Hypertension: Yes Hx Peripheral Edema: Yes - PULMONARY Hx Asthma: Yes Hx Chronic Obstructive Pulmonary Disease (COPD): Yes Hx Pneumonia: Yes (2016) - NEUROLOGICAL Hx Neurological Disorder: No Hx Syncope: Yes (pt states unwitness syncopy yesterday) - HEENT Hx HEENT Problems: No - RENAL Hx Chronic Kidney Disease: No - ENDOCRINE/METABOLIC Hx Endocrine Disorders: No - HEMATOLOGICAL/ONCOLOGICAL Hx Blood Disorders: No - INTEGUMENTARY Hx Dermatological Problems: No - MUSCULOSKELETAL/RHEUMATOLOGICAL Hx Arthritis: Yes - GASTROINTESTINAL Hx Gastrointestinal Disorders: No Other/Comment: HERNIA REPAIR - GENITOURINARY/GYNECOLOGICAL Hx Genitourinary Disorders: No - PSYCHIATRIC Hx Anxiety: Yes Hx Bipolar Disorder: Yes Hx Depression: Yes Hx Substance Use: No - SURGICAL HISTORY Hx Surgeries: Yes Hx Section: Yes (x5) Hx Herniorrhaphy: Yes - ANESTHESIA Hx Anesthesia: Yes Hx Anesthesia Reactions: No Hx Malignant Hyperthermia: No Meds Allergies/Adverse Reactions: Allergies Allergy/AdvReac Type Severity Reaction Status Date / Time No Known Allergies Allergy Verified 12/17/16 18:22 Physical Exam - Constitutional Appears: Well - Head Exam Head Exam: ATRAUMATIC, NORMAL INSPECTION, NORMOCEPHALIC - Eye Exam Eye Exam: EOMI, Normal appearance, PERRL Pupil Exam: NORMAL ACCOMODATION, PERRL - ENT Exam ENT Exam: Mucous Membranes Moist, Normal Exam - Neck Exam Neck exam: Positive for: Normal Inspection - Respiratory Exam Respiratory Exam: Decreased Breath Sounds - Cardiovascular Exam Cardiovascular Exam: REGULAR RHYTHM, +S1, +S2 - GI/Abdominal Exam GI & Abdominal Exam: Diminished Bowel Sounds, Soft - Rectal Exam Rectal Exam: Deferred Results - Vital Signs Recent Vital Signs: Last Vital Signs Temp 97.7 F 12/18/16 08:00 Pulse 88 12/18/16 10:00 Resp 86 H 12/18/16 08:00 BP 118/74 12/18/16 10:30 Pulse Ox 20 L 12/18/16 08:00 Assessment & Plan - Assessment and Plan (Free Text) Plan: Solu-Medrol Avelox DuoNeb Pulmonary consult Hernandez Bauman Singyanair Lasix Follow-up with x-ray Management as ordered
--- NOTE | 2016-12-18 19:56 | CP.PCM.CON ---
History of Present Illness - History of Present Illness History of Present Illness: Reason for consultation: shortness of breath Patient is a 50 year old female with PMHx of asthma, bipolar disorder, and HTN who presents to the ED complaining of shortness of breath. She states that yesterday when she came home after work she developed severe shortness of breath after she got exposed to dust from vacuum cleaning. The patient states that she uses Ventolin INH daily . PMD: Dr Mancia (clinic) Meds: Ventolin INH, Albuterol INH, Lasix, Prednisone, Seroquel, Celexa (patient admits that she does not take her psychiatric medications regularly and is not compliant with her treatment. She sees Dr Reynoso regularly) Surgical Hx: x5, umbilical hernia repair Family Hx: Mom- asthma, HTN (); Dad- Lung cancer () Social Hx: Denies EtOH use, denies tobacco use, denies illicit drug use. Currently unemployed, trying to get disability for her asthma. Allergies: NKDA Review of Systems - Review of Systems All systems: reviewed and no additional remarkable complaints except (shortness of breath and right knee pain) Past Patient History - Infectious Disease Hx of Infectious Diseases: None - Past Medical History & Family History Past Medical History?: Yes - Past Social History Smoking Status: Never Smoked - CARDIAC Hx Hypertension: Yes Hx Peripheral Edema: Yes - PULMONARY Hx Asthma: Yes Hx Chronic Obstructive Pulmonary Disease (COPD): Yes Hx Pneumonia: Yes (2016) - NEUROLOGICAL Hx Neurological Disorder: No Hx Syncope: Yes (pt states unwitness syncopy yesterday) - HEENT Hx HEENT Problems: No - RENAL Hx Chronic Kidney Disease: No - ENDOCRINE/METABOLIC Hx Endocrine Disorders: No - HEMATOLOGICAL/ONCOLOGICAL Hx Blood Disorders: No - INTEGUMENTARY Hx Dermatological Problems: No - MUSCULOSKELETAL/RHEUMATOLOGICAL Hx Arthritis: Yes - GASTROINTESTINAL Hx Gastrointestinal Disorders: No Other/Comment: HERNIA REPAIR - GENITOURINARY/GYNECOLOGICAL Hx Genitourinary Disorders: No - PSYCHIATRIC Hx Anxiety: Yes Hx Bipolar Disorder: Yes Hx Depression: Yes Hx Substance Use: No - SURGICAL HISTORY Hx Surgeries: Yes Hx Section: Yes (x5) Hx Herniorrhaphy: Yes - ANESTHESIA Hx Anesthesia: Yes Hx Anesthesia Reactions: No Hx Malignant Hyperthermia: No Meds Allergies/Adverse Reactions: Allergies Allergy/AdvReac Type Severity Reaction Status Date / Time No Known Allergies Allergy Verified 12/17/16 18:22 - Medications Medications: Current Medications Albuterol (Ventolin Hfa 90 Mcg/Actuation (8 G)) 1 puff INH RQ4 PRN PRN Reason: Wheezing Albuterol/Ipratropium (Duoneb 3 Mg/0.5 Mg (3 Ml) Ud) 3 ml INH RQ4 [facility] Last Admin: 12/18/16 19:41 Dose: 3 ml Amlodipine Besylate (Norvasc) 10 mg PO DAILY [facility] Last Admin: 12/18/16 10:30 Dose: 10 mg Clonidine HCl (Catapres) 0.1 mg PO TID [facility] Last Admin: 12/18/16 17:09 Dose: 0.1 mg Cyclobenzaprine HCl (Flexeril) 5 mg PO DAILY PRN PRN Reason: Pain, moderate (4-7) Enoxaparin Sodium (Lovenox) 40 mg SC DAILY [facility] Last Admin: 12/18/16 10:30 Dose: 40 mg Furosemide (Lasix) 40 mg IVP DAILY [facility] Last Admin: 12/18/16 10:30 Dose: 40 mg Moxifloxacin HCl (Avelox Iv 400mg/250ml Ns) 400 mg in 250 mls @ 167 mls/hr IVPB Q24H [facility] Last Admin: 12/18/16 11:01 Dose: 167 mls/hr Ibuprofen (Motrin Tab) 800 mg PO Q6 PRN PRN Reason: Pain, Mild (1-3) Loratadine (Claritin) 10 mg PO HS [facility] Losartan Potassium (Cozaar) 100 mg PO DAILY [facility] Last Admin: 12/18/16 10:30 Dose: 100 mg Methylprednisolone (Solu-Medrol) 40 mg IVP Q8 [facility] Last Admin: 12/18/16 13:17 Dose: 40 mg Montelukast Sodium (Singulair) 10 mg PO HS [facility] Pantoprazole Sodium (Protonix Ec Tab) 40 mg PO DAILY [facility] Last Admin: 12/18/16 10:30 Dose: 40 mg Pneumococcal Polyvalent Vaccine (Pneumovax 23 Vaccine) 0.5 ml IM .ONCE ONE Stop: 12/20/16 10:01 Fluticasone/Salmeterol (Advair Diskus 250/50) 1 puff INH RQ12 [facility] Last Admin: 12/18/16 19:41 Dose: 1 puff Physical Exam - Head Exam Head Exam: ATRAUMATIC, NORMOCEPHALIC - ENT Exam ENT Exam: Mucous Membranes Moist - Neck Exam Neck exam: Positive for: Normal Inspection - Respiratory Exam Respiratory Exam: Clear to Auscultation Bilateral - Cardiovascular Exam Cardiovascular Exam: REGULAR RHYTHM - GI/Abdominal Exam GI & Abdominal Exam: Normal Bowel Sounds - Extremities Exam Extremities exam: Positive for: normal inspection Results - Vital Signs Recent Vital Signs: Last Vital Signs Temp 98.2 F 12/18/16 16:00 Pulse 87 12/18/16 17:09 Resp 20 12/18/16 16:00 BP 118/76 12/18/16 17:09 Pulse Ox 96 12/18/16 16:00 Assessment & Plan (1) Asthma exacerbation Status: Acute Comment: continue IV steroids, nebulizer treatment. Peak flow q. shift. Allergy testing/ige level
[2016-12-19] MEDS: Albuterol-Ipratrop 3 mg / 0.5 (3 ml) UD INH SCH ×5 (03:36→19:59)
[2016-12-19] MEDS: MethylPREDNISolone 40 mg Vial IVP SCH ×2 (05:22→15:15)
[2016-12-19] MEDS: Fluticasone-Salmeterol 250-50mcg Diskus INH SCH ×2 (08:18→20:00)
--- NOTE | 2016-12-19 08:51 | CP.PCM.CON ---
History of Present Illness - History of Present Illness History of Present Illness: 51 year old lady with HTN, on clonidine, Bipolar disorder, frequent visits to ED with SOB and treatment od asthma treated with B agonist and steroid, f/u visits at the clinic. now with sob, 1st degree AV block probably due to clonidine, f/u with Echo Review of Systems - Review of Systems Systems not reviewed;Unavailable: Respiratory Distress - Constitutional Constitutional: Anorexia, Weakness - EENT Eyes: absent: Discharge Ears: absent: Ear Discharge, Dizziness Nose/Mouth/Throat: absent: Epistaxis - Cardiovascular Cardiovascular: absent: Acrocyanosis, Chest Pain, Diaphoresis, Palpitations, Syncope - Respiratory Respiratory: Cough, Dyspnea. absent: Hemoptysis - Gastrointestinal Gastrointestinal: absent: Abdominal Pain, Diarrhea, Hematochezia, Vomiting - Genitourinary Genitourinary: absent: Change in Urinary Stream Past Patient History - Infectious Disease Hx of Infectious Diseases: None - Past Medical History & Family History Past Medical History?: Yes - Past Social History Smoking Status: Never Smoked - CARDIAC Hx Hypertension: Yes Hx Peripheral Edema: Yes - PULMONARY Hx Asthma: Yes Hx Chronic Obstructive Pulmonary Disease (COPD): Yes Hx Pneumonia: Yes (2016) - NEUROLOGICAL Hx Neurological Disorder: No Hx Syncope: Yes (pt states unwitness syncopy yesterday) - HEENT Hx HEENT Problems: No - RENAL Hx Chronic Kidney Disease: No - ENDOCRINE/METABOLIC Hx Endocrine Disorders: No - HEMATOLOGICAL/ONCOLOGICAL Hx Blood Disorders: No - INTEGUMENTARY Hx Dermatological Problems: No - MUSCULOSKELETAL/RHEUMATOLOGICAL Hx Arthritis: Yes - GASTROINTESTINAL Hx Gastrointestinal Disorders: No Other/Comment: HERNIA REPAIR - GENITOURINARY/GYNECOLOGICAL Hx Genitourinary Disorders: No - PSYCHIATRIC Hx Anxiety: Yes Hx Bipolar Disorder: Yes Hx Depression: Yes Hx Substance Use: No - SURGICAL HISTORY Hx Surgeries: Yes Hx Section: Yes (x5) Hx Herniorrhaphy: Yes - ANESTHESIA Hx Anesthesia: Yes Hx Anesthesia Reactions: No Hx Malignant Hyperthermia: No Meds Home Medications: Home Medication List Medication Instructions Recorded Confirmed Type Azithromycin [Z-Miller] 250 mg PO DAILY #6 tab 12/20/16 Rx predniSONE [predniSONE Tab] 20 mg PO DAILY #5 tab 12/20/16 Rx Allergies/Adverse Reactions: Allergies Allergy/AdvReac Type Severity Reaction Status Date / Time No Known Allergies Allergy Verified 12/17/16 18:22 - Medications Medications: Current Medications Albuterol (Ventolin Hfa 90 Mcg/Actuation (8 G)) 1 puff INH RQ4 PRN PRN Reason: Wheezing Albuterol/Ipratropium (Duoneb 3 Mg/0.5 Mg (3 Ml) Ud) 3 ml INH RQ4 [facility] Last Admin: 12/19/16 08:18 Dose: 3 ml Amlodipine Besylate (Norvasc) 10 mg PO DAILY [facility] Last Admin: 12/18/16 10:30 Dose: 10 mg Clonidine HCl (Catapres) 0.1 mg PO TID [facility] Last Admin: 12/18/16 17:09 Dose: 0.1 mg Cyclobenzaprine HCl (Flexeril) 5 mg PO DAILY PRN PRN Reason: Pain, moderate (4-7) Enoxaparin Sodium (Lovenox) 40 mg SC DAILY [facility] Last Admin: 12/18/16 10:30 Dose: 40 mg Furosemide (Lasix) 40 mg IVP DAILY [facility] Last Admin: 12/18/16 10:30 Dose: 40 mg Moxifloxacin HCl (Avelox Iv 400mg/250ml Ns) 400 mg in 250 mls @ 167 mls/hr IVPB Q24H [facility] Last Admin: 12/18/16 11:01 Dose: 167 mls/hr Ibuprofen (Motrin Tab) 800 mg PO Q6 PRN PRN Reason: Pain, Mild (1-3) Loratadine (Claritin) 10 mg PO HS [facility] Last Admin: 12/18/16 21:09 Dose: 10 mg Losartan Potassium (Cozaar) 100 mg PO DAILY [facility] Last Admin: 12/18/16 10:30 Dose: 100 mg Methylprednisolone (Solu-Medrol) 40 mg IVP Q8 [facility] Last Admin: 12/19/16 05:22 Dose: 40 mg Montelukast Sodium (Singulair) 10 mg PO HS [facility] Last Admin: 12/18/16 21:09 Dose: 10 mg Pantoprazole Sodium (Protonix Ec Tab) 40 mg PO DAILY [facility] Last Admin: 12/18/16 10:30 Dose: 40 mg Pneumococcal Polyvalent Vaccine (Pneumovax 23 Vaccine) 0.5 ml IM .ONCE ONE Stop: 12/20/16 10:01 Fluticasone/Salmeterol (Advair Diskus 250/50) 1 puff INH RQ12 [facility] Last Admin: 12/19/16 08:18 Dose: 1 puff Physical Exam - Constitutional Appears: Non-toxic - Head Exam Head Exam: ATRAUMATIC - Eye Exam Eye Exam: EOMI - ENT Exam ENT Exam: Mucous Membranes Moist - Neck Exam Neck exam: Negative for: Lymphadenopathy, Thyromegaly - Respiratory Exam Respiratory Exam: Clear to Auscultation Bilateral. absent: Rales - Cardiovascular Exam Cardiovascular Exam: REGULAR RHYTHM. absent: Systolic Murmur - GI/Abdominal Exam GI & Abdominal Exam: Normal Bowel Sounds. absent: Organomegaly - Rectal Exam Rectal Exam: Deferred - Extremities Exam Extremities exam: Positive for: normal capillary refill. Negative for: calf tenderness - Neurological Exam Neurological exam: Alert, Oriented x3 - Psychiatric Exam Psychiatric exam: Anxious - Skin Skin Exam: Dry Results - Vital Signs Recent Vital Signs: Last Vital Signs Temp 98 F 12/19/16 08:37 Pulse 70 12/19/16 08:37 Resp 20 12/19/16 08:37 BP 122/70 12/19/16 08:37 Pulse Ox 95 12/19/16 08:37 - Labs Result Diagrams: 12/20/16 11:07 12/20/16 08:23 Assessment & Plan (1) Abnormal EKG Status: Acute Comment: AV block probably due to clonidine, f/u with echo (2) Shortness of breath Status: Acute Comment: f/u with echo
[2016-12-19] MEDS: Enoxaparin 40 mg Syringe SC SCH (09:34)
[2016-12-19] MEDS: Pantoprazole 40 mg EC Tab PO SCH (09:34)
[2016-12-19] MEDS: Moxifloxacin IV 400mg/250ml NS 400 MG/250 ML BAG IVPB SCH (09:42)
--- NOTE | 2016-12-19 09:55 | CP.PCM.PN ---
Subjective - Date & Time of Evaluation Date of Evaluation: 12/19/16 Time of Evaluation: 11:00 - Subjective Subjective: clinically same Objective - Vital Signs/Intake and Output Vital Signs (last 24 hours): Temp Pulse Resp BP Pulse Ox 98 F 70 20 118/69 95 12/19/16 08:37 12/19/16 08:37 12/19/16 08:37 12/19/16 09:34 12/19/16 08:37 Intake and Output: 12/19/16 12/19/16 06:59 18:59 Intake Total 740 Balance 740 - Medications Medications: Current Medications Albuterol (Ventolin Hfa 90 Mcg/Actuation (8 G)) 1 puff INH RQ4 PRN PRN Reason: Wheezing Albuterol/Ipratropium (Duoneb 3 Mg/0.5 Mg (3 Ml) Ud) 3 ml INH RQ4 [facility] Last Admin: 12/19/16 08:18 Dose: 3 ml Amlodipine Besylate (Norvasc) 10 mg PO DAILY [facility] Last Admin: 12/19/16 09:34 Dose: 10 mg Clonidine HCl (Catapres) 0.1 mg PO TID [facility] Last Admin: 12/19/16 09:34 Dose: 0.1 mg Cyclobenzaprine HCl (Flexeril) 5 mg PO DAILY PRN PRN Reason: Pain, moderate (4-7) Enoxaparin Sodium (Lovenox) 40 mg SC DAILY [facility] Last Admin: 12/19/16 09:34 Dose: 40 mg Furosemide (Lasix) 40 mg IVP DAILY [facility] Last Admin: 12/19/16 09:34 Dose: 40 mg Moxifloxacin HCl (Avelox Iv 400mg/250ml Ns) 400 mg in 250 mls @ 167 mls/hr IVPB Q24H [facility] Last Admin: 12/19/16 09:42 Dose: 167 mls/hr Ibuprofen (Motrin Tab) 800 mg PO Q6 PRN PRN Reason: Pain, Mild (1-3) Loratadine (Claritin) 10 mg PO HS [facility] Last Admin: 12/18/16 21:09 Dose: 10 mg Losartan Potassium (Cozaar) 100 mg PO DAILY [facility] Last Admin: 12/19/16 09:34 Dose: 100 mg Methylprednisolone (Solu-Medrol) 40 mg IVP Q8 [facility] Last Admin: 12/19/16 05:22 Dose: 40 mg Montelukast Sodium (Singulair) 10 mg PO HS [facility] Last Admin: 12/18/16 21:09 Dose: 10 mg Pantoprazole Sodium (Protonix Ec Tab) 40 mg PO DAILY [facility] Last Admin: 12/19/16 09:34 Dose: 40 mg Pneumococcal Polyvalent Vaccine (Pneumovax 23 Vaccine) 0.5 ml IM .ONCE ONE Stop: 12/20/16 10:01 Fluticasone/Salmeterol (Advair Diskus 250/50) 1 puff INH RQ12 [facility] Last Admin: 12/19/16 08:18 Dose: 1 puff - Constitutional Appears: Well - Head Exam Head Exam: ATRAUMATIC, NORMAL INSPECTION, NORMOCEPHALIC - Eye Exam Eye Exam: EOMI, Normal appearance, PERRL Pupil Exam: NORMAL ACCOMODATION, PERRL - ENT Exam ENT Exam: Mucous Membranes Moist, Normal Exam - Neck Exam Neck Exam: Full ROM, Normal Inspection. absent: Lymphadenopathy - Respiratory Exam Respiratory Exam: Decreased Breath Sounds - Cardiovascular Exam Cardiovascular Exam: REGULAR RHYTHM, +S1, +S2 - GI/Abdominal Exam GI & Abdominal Exam: Soft, Diminished Bowel Sounds - Rectal Exam Rectal Exam: Deferred
[2016-12-19] MEDS ORDERED: DiphenhydrAMINE 50 mg/ml Inj IVP STA (10:49)
[2016-12-20] MEDS: Albuterol-Ipratrop 3 mg / 0.5 (3 ml) UD INH SCH ×4 (00:29→12:13)
[2016-12-20] MEDS: Fluticasone-Salmeterol 250-50mcg Diskus INH SCH (07:33)
[2016-12-20 08:37] VITALS: BP 143/86; RESP 21; TEMP 97.5
[2016-12-20 08:59] LABS: CHLORIDE 100 mmol/L (98-107)
[2016-12-20 09:00] LABS: POTASSIUM 3.7 mmol/L (3.6-5.2); SODIUM 144 mmol/L (132-148)
[2016-12-20 09:02] LABS: ALKALINE PHOSPHATASE 62 U/L (38-126); AST/SGOT 21 U/L (14-36); BILIRUBIN,TOTAL 0.5 mg/dL (0.2-1.3); CARBON DIOXIDE 31 mmol/L (22-30); GFR AFRICAN-AMERICAN > 60; TOTAL PROTEIN 7.9 g/dL (6.3-8.3)
[2016-12-20 09:03] LABS: ALT/SGPT 27 U/L (9-52); BLOOD UREA NITROGEN 22 mg/dL (7-17); CALCIUM 9.5 mg/dl (8.6-10.4); GLUCOSE,RANDOM 95 mg/dL (65-105)
[2016-12-20] MEDS: Pantoprazole 40 mg EC Tab PO SCH (09:58)
[2016-12-20] MEDS: Enoxaparin 40 mg Syringe SC SCH (09:58)
[2016-12-20] MEDS ORDERED: Pneumococcal 23-Valent Vaccine IM ONE (10:00)
[2016-12-20 10:55] VITALS: PULSE 88
[2016-12-20 11:20] LABS: BASO # 0.1 K/uL (0.0-0.2); BASO % 0.6 % (0.0-2.0); EOS % 0.2 % (0.0-4.0); HEMATOCRIT 38.8 % (34.0-47.0); LYMPH # 2.6 K/uL (1.0-4.3); LYMPH % 27.9 % (20.0-40.0); MEAN CELL VOLUME 85.7 fL (81.0-99.0); MEAN CORPUSCULAR HEMOGLOBIN 27.5 pg (27.0-31.0); MEAN CORPUSCULAR HGB CONC 32.1 g/dL (33.0-37.0); MEAN PLATELET VOLUME 9.1 fL (7.2-11.7); MONO # 0.7 K/uL (0.0-0.8); MONO % 7.6 % (0.0-10.0); RED CELL DISTRIBUTION WIDTH 14.7 % (11.5-14.5); WHITE BLOOD COUNT 9.2 K/uL (4.8-10.8)
--- NOTE | 2016-12-20 12:34 | CP.PCM.PN ---
Subjective - Date & Time of Evaluation Date of Evaluation: 12/20/16 Time of Evaluation: 12:00 - Subjective Subjective: Less shortness of breath, stable hemodynamically, follow-up with echo.as outpt. Objective - Vital Signs/Intake and Output Vital Signs (last 24 hours): Temp Pulse Resp BP Pulse Ox 97.5 F L 88 21 143/86 98 12/20/16 08:36 12/20/16 10:00 12/20/16 08:36 12/20/16 08:36 12/20/16 08:36 - Medications Medications: Current Medications Albuterol (Ventolin Hfa 90 Mcg/Actuation (8 G)) 1 puff INH RQ4 PRN PRN Reason: Wheezing Albuterol/Ipratropium (Duoneb 3 Mg/0.5 Mg (3 Ml) Ud) 3 ml INH RQ4 [facility] Last Admin: 12/20/16 12:13 Dose: 3 ml Amlodipine Besylate (Norvasc) 10 mg PO DAILY [facility] Last Admin: 12/20/16 09:58 Dose: 10 mg Clonidine HCl (Catapres) 0.1 mg PO TID [facility] Last Admin: 12/20/16 09:58 Dose: 0.1 mg Cyclobenzaprine HCl (Flexeril) 5 mg PO DAILY PRN PRN Reason: Pain, moderate (4-7) Diphenhydramine HCl (Benadryl) 25 mg PO TID [facility] Last Admin: 12/20/16 09:58 Dose: 25 mg Enoxaparin Sodium (Lovenox) 40 mg SC DAILY [facility] Last Admin: 12/20/16 09:58 Dose: 40 mg Furosemide (Lasix) 40 mg IVP DAILY [facility] Last Admin: 12/20/16 10:01 Dose: Not Given Ibuprofen (Motrin Tab) 800 mg PO Q6 PRN PRN Reason: Pain, Mild (1-3) Loratadine (Claritin) 10 mg PO HS [facility] Last Admin: 12/19/16 21:47 Dose: 10 mg Losartan Potassium (Cozaar) 100 mg PO DAILY [facility] Last Admin: 12/20/16 09:58 Dose: 100 mg Montelukast Sodium (Singulair) 10 mg PO HS [facility] Last Admin: 12/19/16 21:47 Dose: 10 mg Moxifloxacin HCl (Avelox) 400 mg PO DAILY [facility] Last Admin: 12/20/16 09:58 Dose: 400 mg Pantoprazole Sodium (Protonix Ec Tab) 40 mg PO DAILY [facility] Last Admin: 12/20/16 09:58 Dose: 40 mg Fluticasone/Salmeterol (Advair Diskus 250/50) 1 puff INH RQ12 [facility] Last Admin: 12/20/16 07:33 Dose: 1 puff - Labs Labs: 12/20/16 11:07 12/20/16 08:23 - Constitutional Appears: Non-toxic - Head Exam Head Exam: ATRAUMATIC - Eye Exam Eye Exam: EOMI - ENT Exam ENT Exam: Mucous Membranes Moist - Neck Exam Neck Exam: absent: Lymphadenopathy, Thyromegaly - Respiratory Exam Respiratory Exam: Clear to Ausculation Bilateral. absent: Rales - Cardiovascular Exam Cardiovascular Exam: REGULAR RHYTHM. absent: Murmur - GI/Abdominal Exam GI & Abdominal Exam: Normal Bowel Sounds. absent: Organomegaly - Rectal Exam Rectal Exam: Deferred - Extremities Exam Extremities Exam: Normal Capillary Refill. absent: Calf Tenderness - Neurological Exam Neurological Exam: Alert, Oriented x3 - Psychiatric Exam Psychiatric exam: Anxious - Skin Skin Exam: Dry Assessment and Plan (1) Abnormal EKG Status: Acute (2) Shortness of breath Status: Acute
--- NOTE | 2016-12-20 13:11 | CP.PCM.PN ---
Subjective - Date & Time of Evaluation Date of Evaluation: 12/20/16 Time of Evaluation: 10:40 - Subjective Subjective: clinically same Objective - Vital Signs/Intake and Output Vital Signs (last 24 hours): Temp Pulse Resp BP Pulse Ox 97.5 F L 88 21 143/86 98 12/20/16 08:36 12/20/16 10:00 12/20/16 08:36 12/20/16 08:36 12/20/16 08:36 - Medications Medications: Current Medications Albuterol (Ventolin Hfa 90 Mcg/Actuation (8 G)) 1 puff INH RQ4 PRN PRN Reason: Wheezing Albuterol/Ipratropium (Duoneb 3 Mg/0.5 Mg (3 Ml) Ud) 3 ml INH RQ4 [facility] Last Admin: 12/20/16 12:13 Dose: 3 ml Amlodipine Besylate (Norvasc) 10 mg PO DAILY [facility] Last Admin: 12/20/16 09:58 Dose: 10 mg Clonidine HCl (Catapres) 0.1 mg PO TID [facility] Last Admin: 12/20/16 09:58 Dose: 0.1 mg Cyclobenzaprine HCl (Flexeril) 5 mg PO DAILY PRN PRN Reason: Pain, moderate (4-7) Diphenhydramine HCl (Benadryl) 25 mg PO TID [facility] Last Admin: 12/20/16 09:58 Dose: 25 mg Enoxaparin Sodium (Lovenox) 40 mg SC DAILY [facility] Last Admin: 12/20/16 09:58 Dose: 40 mg Furosemide (Lasix) 40 mg IVP DAILY [facility] Last Admin: 12/20/16 10:01 Dose: Not Given Ibuprofen (Motrin Tab) 800 mg PO Q6 PRN PRN Reason: Pain, Mild (1-3) Loratadine (Claritin) 10 mg PO HS [facility] Last Admin: 12/19/16 21:47 Dose: 10 mg Losartan Potassium (Cozaar) 100 mg PO DAILY [facility] Last Admin: 12/20/16 09:58 Dose: 100 mg Montelukast Sodium (Singulair) 10 mg PO HS [facility] Last Admin: 12/19/16 21:47 Dose: 10 mg Moxifloxacin HCl (Avelox) 400 mg PO DAILY [facility] Last Admin: 12/20/16 09:58 Dose: 400 mg Pantoprazole Sodium (Protonix Ec Tab) 40 mg PO DAILY [facility] Last Admin: 12/20/16 09:58 Dose: 40 mg Fluticasone/Salmeterol (Advair Diskus 250/50) 1 puff INH RQ12 [facility] Last Admin: 12/20/16 07:33 Dose: 1 puff - Labs Labs: 12/20/16 11:07 12/20/16 08:23 - Constitutional Appears: Well - Head Exam Head Exam: ATRAUMATIC, NORMAL INSPECTION, NORMOCEPHALIC - Eye Exam Eye Exam: EOMI, Normal appearance, PERRL Pupil Exam: NORMAL ACCOMODATION, PERRL - ENT Exam ENT Exam: Mucous Membranes Moist, Normal Exam - Neck Exam Neck Exam: Full ROM, Normal Inspection. absent: Lymphadenopathy - Respiratory Exam Respiratory Exam: Decreased Breath Sounds - Cardiovascular Exam Cardiovascular Exam: REGULAR RHYTHM, +S1, +S2 - GI/Abdominal Exam GI & Abdominal Exam: Soft, Diminished Bowel Sounds - Rectal Exam Rectal Exam: Deferred
--- NOTE | 2016-12-20 13:33 | CP.PCM.PN ---
Subjective - Date & Time of Evaluation Date of Evaluation: 12/20/16 Time of Evaluation: 07:40 - Subjective Subjective: Medicine note- Dr. Ortiz's service Patient was seen and examined at bedside. Patient reports no acute complaints at this time. Patient reports her breathing is markedly improved from admission. She is able to ambulate normally. No events overnight, per nursing. Objective - Vital Signs/Intake and Output Vital Signs (last 24 hours): Temp Pulse Resp BP Pulse Ox 97.5 F L 88 21 143/86 98 12/20/16 08:36 12/20/16 10:00 12/20/16 08:36 12/20/16 08:36 12/20/16 08:36 - Medications Medications: Current Medications Albuterol (Ventolin Hfa 90 Mcg/Actuation (8 G)) 1 puff INH RQ4 PRN PRN Reason: Wheezing Albuterol/Ipratropium (Duoneb 3 Mg/0.5 Mg (3 Ml) Ud) 3 ml INH RQ4 [facility] Last Admin: 12/20/16 12:13 Dose: 3 ml Amlodipine Besylate (Norvasc) 10 mg PO DAILY [facility] Last Admin: 12/20/16 09:58 Dose: 10 mg Clonidine HCl (Catapres) 0.1 mg PO TID [facility] Last Admin: 12/20/16 09:58 Dose: 0.1 mg Cyclobenzaprine HCl (Flexeril) 5 mg PO DAILY PRN PRN Reason: Pain, moderate (4-7) Diphenhydramine HCl (Benadryl) 25 mg PO TID [facility] Last Admin: 12/20/16 09:58 Dose: 25 mg Enoxaparin Sodium (Lovenox) 40 mg SC DAILY [facility] Last Admin: 12/20/16 09:58 Dose: 40 mg Furosemide (Lasix) 40 mg IVP DAILY [facility] Last Admin: 12/20/16 10:01 Dose: Not Given Ibuprofen (Motrin Tab) 800 mg PO Q6 PRN PRN Reason: Pain, Mild (1-3) Loratadine (Claritin) 10 mg PO HS [facility] Last Admin: 12/19/16 21:47 Dose: 10 mg Losartan Potassium (Cozaar) 100 mg PO DAILY [facility] Last Admin: 12/20/16 09:58 Dose: 100 mg Montelukast Sodium (Singulair) 10 mg PO HS [facility] Last Admin: 12/19/16 21:47 Dose: 10 mg Moxifloxacin HCl (Avelox) 400 mg PO DAILY [facility] Last Admin: 12/20/16 09:58 Dose: 400 mg Pantoprazole Sodium (Protonix Ec Tab) 40 mg PO DAILY [facility] Last Admin: 12/20/16 09:58 Dose: 40 mg Fluticasone/Salmeterol (Advair Diskus 250/50) 1 puff INH RQ12 [facility] Last Admin: 12/20/16 07:33 Dose: 1 puff - Labs Labs: 12/20/16 11:07 12/20/16 08:23 - Constitutional Appears: Non-toxic, No Acute Distress - Head Exam Head Exam: ATRAUMATIC, NORMAL INSPECTION, NORMOCEPHALIC - Eye Exam Pupil Exam: NORMAL ACCOMODATION, PERRL - ENT Exam ENT Exam: Mucous Membranes Moist - Respiratory Exam Respiratory Exam: Clear to Ausculation Bilateral, NORMAL BREATHING PATTERN. absent: Prolonged Expiratory Phase, Rales, Rhonchi, Wheezes - Cardiovascular Exam Cardiovascular Exam: REGULAR RHYTHM, +S1, +S2 - GI/Abdominal Exam GI & Abdominal Exam: Soft, Normal Bowel Sounds. absent: Tenderness, Diminished Bowel Sounds, Hernia, Hypoactive Bowel Sounds - Extremities Exam Extremities Exam: Normal Capillary Refill, Normal Inspection - Neurological Exam Neurological Exam: Alert, Awake, Oriented x3 - Psychiatric Exam Psychiatric exam: Normal Affect, Normal Mood - Skin Skin Exam: Dry, Intact, Normal Color, Warm Assessment and Plan - Assessment and Plan (Free Text) Assessment: Asthma exacerbation Patient is to be discharged home with Prednisone 20mg PO daily x 5 days and Z pack Medications received here: Duoneb Q4h Albuterol 1 puff INH Q4h Singulair 10mg PO HS Avelox 400mg PO Daily Claritin 10mg PO HS Advair 250/50 1 puff INH Q12h Solumedrol 40mg IVP Q8h Hypertension Losartan 100mg PO Daily Lasix 40mg IVP Daily Norvasc 10mg PO Daily Clonidine 0.1mg PO TID All medical management as per Dr. Ortiz. As per Dr. Ortiz, patient is to be discharged home today.
--- NOTE | 2016-12-20 13:49 | VASCLAB ---
PROCEDURE: Lower Extremity Venous Duplex Exam. HISTORY: swelling right calf and knee, Osteoarthritis, Obesity, B/L LE Edema, pain R>L PRIORS: None. TECHNIQUE: Bilateral common femoral, femoral, popliteal and posterior tibial, peroneal and great saphenous veins were evaluated. Flow was assessed with color Doppler, compressibility, assessment of phasic flow and augmentation response. Report prepared by Tee Odell, T FINDINGS: RIGHT: 1. Common Femoral Vein: 1.1. Compressibility - Fully compressible: Thrombus - None : Flow - Phasic: Augmentation -Normal: Reflux - . 2. Femoral Vein: 2.1. Compressibility - Fully compressible: Thrombus - None : Flow - Phasic: Augmentation -Normal: Reflux - . 3. Popliteal Vein: 3.1. Compressibility - Fully compressible: Thrombus - None : Flow - Phasic: Augmentation -Normal: Reflux - . 4. Posterior Tibial Vein: 4.1. Compressibility - Fully compressible: Thrombus - None: Flow - : Augmentation -: Reflux - . 5. Peroneal Vein: 5.1. Compressibility - Fully compressible: Thrombus - None: Flow - : Augmentation -: Reflux - . 6. Great Saphenous Vein: 6.1. Compressibility - Fully compressible: Thrombus - None: Flow - Phasic: Augmentation - : Reflux - . LEFT: 1. Common Femoral Vein: 1.1. Compressibility - Fully compressible: Thrombus - None: Flow - Phasic: Augmentation -Normal: Reflux - . 2. Femoral Vein: 2.1. Compressibility - Fully compressible: Thrombus - None: Flow - Phasic: Augmentation -Normal: Reflux - . 3. Popliteal Vein: 3.1. Compressibility - Fully compressible: Thrombus - None : Flow - Phasic: Augmentation -Normal: Reflux - . 4. Posterior Tibial Vein: 4.1. Compressibility - Fully compressible: Thrombus - None: Flow - : Augmentation -: Reflux - . 5. Peroneal Vein: 5.1. Compressibility - Fully compressible: Thrombus - None: Flow - : Augmentation -: Reflux - . 6. Great Saphenous Vein: 6.1. Compressibility - Fully compressible: Thrombus - None: Flow - Phasic: Augmentation - : Reflux - . OTHER FINDINGS: Right: There was a fluid filled structure behind the knee, which measured 2.5x1.8 cm. Questionable Rosa Cyst. Left: None significant. IMPRESSION: Right: No evidence of deep or superficial vein thrombosis of the right lower extremity. Left: No evidence of deep or superficial vein thrombosis of the left lower extremity.
[2016-12-20 21:46] VITALS: O2SAT 95
--- NOTE | 2016-12-29 14:31 | CARD ---
APPROVED REPORT EKG Measurement Heart [id number] MS 206P65 [id number] <Conclusion> Normal sinus rhythm Possible Left atrial enlargement Incomplete right bundle branch block Borderline ECG
== END 2016-12-20 15:25 | disposition home or self-care (01) | DRG 88 ==
LOC: C.ER 22:31 → C.9E 22:57 → C.3T 22:57 → C.5T 12-18 04:38
PROVIDERS: ADMIT Internal Medicine Nephrology; ATTEND Internal Medicine Nephrology
DX: J44.1 Chronic obstructive pulmonary disease with (acute) exacerbation (principal); J45.901 Unspecified asthma with (acute) exacerbation; I10 Essential (primary) hypertension; F41.9 Anxiety disorder, unspecified; F31.9 Bipolar disorder, unspecified; I44.0 Atrioventricular block, first degree; T46.5X5A Adverse effect of other antihypertensive drugs, initial encounter; Z87.01 Personal history of pneumonia (recurrent); M17.11 Unilateral primary osteoarthritis, right knee; E66.9 Obesity, unspecified

== ENCOUNTER 2017-04-06 16:22 | Inpatient (IN) | payer MEDICAID ==
[2017-04-06] MEDS ORDERED: Albuterol-Ipratrop 3 mg / 0.5 (3 ml) UD INH STA (17:32)
[2017-04-06] MEDS ORDERED: DiphenhydrAMINE 50 mg/ml Inj IVP STA (17:33)
[2017-04-06] MEDS ORDERED: DiphenhydrAMINE 50 mg/ml Inj ONE ×2 (17:49→22:34)
[2017-04-06 17:55] LABS: BASO % 0.6 % (0.0-2.0); EOS # 0.1 K/uL (0.0-0.7); EOS % 2.5 % (0.0-4.0); LYMPH # 3.3 K/uL (1.0-4.3); LYMPH % 58.2 % (20.0-40.0); MEAN CORPUSCULAR HEMOGLOBIN 28.1 pg (27.0-31.0); MEAN CORPUSCULAR HGB CONC 32.7 g/dL (33.0-37.0); MEAN PLATELET VOLUME 8.9 fL (7.2-11.7); MONO # 0.2 K/uL (0.0-0.8); MONO % 3.6 % (0.0-10.0); NRBC % 0.1 % (0.0-2.0); RED CELL DISTRIBUTION WIDTH 14.4 % (11.5-14.5); WHITE BLOOD COUNT 5.6 K/uL (4.8-10.8)
--- NOTE | 2017-04-06 17:56 | C.PDOC ---
History Of Present Illness 51 y/o female, with history of multiple admissions for asthma, is brought to ED via ambulance for evaluation of shortness of breath, wheezing, and rash to chest and extremities. Solu-Medrol and Duoneb was given in field. Denies chest pain, or fever. Time Seen by Provider: 04/06/17 16:36 Chief Complaint (Nursing): Shortness Of Breath History Per: Patient History/Exam Limitations: no limitations Onset/Duration Of Symptoms: Days Current Symptoms Are (Timing): Still Present Current Respiratory Medications: See Home Med List Severity: None Pain Scale Rating Of: 0 Associated Symptoms: denies: Fever, Chills, Sweating, Chest Pain, Bloody Cough, Productive Cough, Heart Racing, Leg/Calf Pain, Ankle/Leg Swelling, Dizziness, Light-headedness, Anxiety, Tingling In Hands Or Face, Musle Spasms In Hands Or Feet Reports Recently: Seen In ED Recent travel outside of the [place]: No Additional History Per: Patient Past Medical History Reviewed: Historical Data, Nursing Documentation, Vital Signs Vital Signs: Last Vital Signs Temp 97.7 F 04/06/17 16:33 Pulse 127 H 04/06/17 17:17 Resp 21 04/06/17 17:58 BP 134/119 H 04/06/17 17:17 Pulse Ox 100 04/06/17 18:01 - Medical History PMH: Anxiety, Arthritis, Asthma, Bipolar Disorder, COPD, Depression, HTN, Peripheral Edema, Pneumonia (2016) Denies: Chronic Kidney Disease Family History: States: Unknown Family Hx - Social History Hx Alcohol Use: No Hx Substance Use: No - Immunization History Hx Tetanus Toxoid Vaccination: No Hx Influenza Vaccination: Yes Hx Pneumococcal Vaccination: No Review Of Systems Except As Marked, All Systems Reviewed And Found Negative. Constitutional: Negative for: Fever, Chills Cardiovascular: Negative for: Chest Pain, Palpitations Respiratory: Positive for: Shortness of Breath, Wheezing Skin: Positive for: Rash Physical Exam - Physical Exam Appears: Non-toxic, No Acute Distress, Other (obese) Skin: Normal Color, Warm, Dry, No Rash Head: Atraumatic, Normacephalic Eye(s): bilateral: Normal Inspection Oral Mucosa: Moist Neck: Normal ROM, Supple Chest: Symmetrical Cardiovascular: Rhythm Regular, No Murmur Respiratory: Normal Breath Sounds, No Rales, No Rhonchi, No Wheezing Gastrointestinal/Abdominal: Soft, No Tenderness Back: No CVA Tenderness Extremity: Normal ROM, No Pedal Edema Neurological/Psych: Oriented x3, Normal Speech ED Course And Treatment - Laboratory Results Result Diagrams: 04/06/17 17:46 04/06/17 17:46 Lab Interpretation: Normal O2 Sat by Pulse Oximetry: 100 Pulse Ox Interpretation: Normal Progress Note: duoneb, duoneb, xanax 0.50 PO Reevaluation Time: 18:33 Reassessment Condition: Improved (calm, clear lungs.) Medical Decision Making Medical Decision Making: extensive psych hx off all meds, more likely anxiety and with clear lungs less likely asthma Improved w Xanax Dry skin on chest area, not urticaria. 1900: pending d-dimer to r/o DVT/PE, signed over to night MD Disposition - Disposition Disposition Time: 09:00 Condition: GOOD Forms: [facility] (S[place]i) - Clinical Impression Clinical Impression: Anxiety, Shortness of breath - Scribe Statement The provider has reviewed the documentation as recorded by the Scribe Ladi Ortiz All medical record entries made by the Scribe were at my direction and personally dictated by me. I have reviewed the chart and agree that the record accurately reflects my personal performance of the history, physical exam, medical decision making, and the department course for this patient. I have also personally directed, reviewed, and agree with the discharge instructions and disposition. Physician Patient Turnover Patient Signed Over To: Dianelys Jackson Handoff Comments: please dispo after d-dimer results and final re-eval
[2017-04-06] MEDS ORDERED: Albuterol-Ipratrop 3 mg / 0.5 (3 ml) UD ONE (17:57)
[2017-04-06] MEDS ORDERED: Ipratropium 0.02% Inhal Soln (0.5 mg/2.5 ml) UD IH ONE (17:57)
[2017-04-06 18:07] LABS: ALB/GLOB RATIO 1.4 (1.0-2.1); ALKALINE PHOSPHATASE 56 U/L (38-126); ALT/SGPT 35 U/L (9-52); AST/SGOT 23 U/L (14-36); BILIRUBIN,TOTAL 0.7 mg/dL (0.2-1.3); BLOOD UREA NITROGEN 14 mg/dL (7-17); CALCIUM 8.4 mg/dl (8.6-10.4); CARBON DIOXIDE 28 mmol/L (22-30); CHLORIDE 102 mmol/L (98-107); GFR AFRICAN-AMERICAN > 60; GLUCOSE,RANDOM 121 mg/dL (65-105); POTASSIUM 3.1 mmol/L (3.6-5.2); SODIUM 136 mmol/L (132-148); TOTAL PROTEIN 6.5 g/dL (6.3-8.3)
--- NOTE | 2017-04-06 18:15 | RAD ---
PROCEDURE: CHEST RADIOGRAPH, 1 VIEW HISTORY: SOB COMPARISON: 03/11/2017. FINDINGS: LUNGS: The lungs are well inflated and clear. PLEURA: No pneumothorax or pleural fluid seen. CARDIOVASCULAR: Normal. OSSEOUS STRUCTURES: No significant abnormalities. VISUALIZED UPPER ABDOMEN: Normal. OTHER FINDINGS: None. IMPRESSION: No acute findings.
[2017-04-06] MEDS ORDERED: Potassium Chloride 10 mEq ER Tab PO STA (18:17)
[2017-04-06 18:22] LABS: INR 1.1
[2017-04-06] MEDS ORDERED: Potassium Chloride 10 mEq ER Tab PO ONE (18:27)
[2017-04-06] MEDS ORDERED: Iodixanol 320 MG/ML 100 ML BOTTLE IV ONE (19:20)
--- NOTE | 2017-04-06 21:46 | CT ---
EXAM: CT Angiography Chest With Intravenous Contrast CLINICAL HISTORY: 51 years old, female; Signs and symptoms; Shortness of breath; Additional info: SOB, elev d-dimer TECHNIQUE: Axial computed tomographic angiography images of the chest with intravenous contrast using pulmonary embolism protocol. All CT scans at this facility use one or more dose reduction techniques, viz.: automated exposure control; ma/kV adjustment per patient size (including targeted exams where dose is matched to indication; i.e. head); or iterative reconstruction technique. MIP reconstructed images were created and reviewed. Coronal and sagittal reformatted images were created and reviewed. CONTRAST: 100 mL of visipaque 320 administered intravenously. COMPARISON: No relevant prior studies available. Examination is markedly limited secondary to poor bolus timing. FINDINGS: Pulmonary arteries: No central pulmonary embolism. Aorta: No thoracic aortic aneurysm. No dissection. Lungs: No mass. No consolidation. Right basilar atelectasis is present. Pleural spaces: No significant effusion. No pneumothorax. Heart: No cardiomegaly. No significant pericardial effusion. No evidence of right heart dysfunction. Bones: No acute fracture. Lymph nodes: No pathologically enlarged lymph nodes. A small hiatal hernia is noted. IMPRESSION: No central pulmonary embolism. Right basilar atelectasis.
[2017-04-07] MEDS: Albuterol-Ipratrop 3 mg / 0.5 (3 ml) UD INH SCH ×3 (02:00→13:53)
[2017-04-07 06:00] LABS: RBC URINE 2 /hpf (0-3); URINE BILIRUBIN NEGATIVE (NEGATIVE); URINE BLOOD NEGATIVE (NEGATIVE); URINE COLOR Yellow (YELLOW); URINE GLUCOSE (UA) NORMAL (Normal); URINE HYALINE CAST 0-2 /lpf (0-2); URINE KETONE NEGATIVE (NEGATIVE); URINE LEUKOCYTE ESTERASE NEG Leu/uL (Negative); URINE PROTEIN 1+ mg/dL (NEGATIVE); URINE UROBILINOGEN NORMAL mg/dL (0.2-1.0); WBC URINE 4 /hpf (0-5)
[2017-04-07] MEDS: MethylPREDNISolone 40 mg Vial IVP SCH ×3 (06:00→23:13)
[2017-04-07] MEDS ORDERED: Albuterol 0.083% Inhal Sol (2.5 mg/3 mL) UD ONE ×2 (06:32→08:15)
[2017-04-07] MEDS ORDERED: MethylPREDNISolone 40 mg Vial ONE (06:32)
[2017-04-07] MEDS ORDERED: Pneumococcal 23-Valent Vaccine IM ONE (09:20)
[2017-04-07] MEDS ORDERED: Alum-Mag Hydrox-Simethicone Susp (30 mL) ONE (09:59)
[2017-04-07] MEDS ORDERED: Fluticasone-Salmeterol 250-50mcg Diskus INH SCH (10:00)
[2017-04-07] MEDS: Enoxaparin 30 mg Syringe SC SCH (11:21)
[2017-04-07] MEDS: Pantoprazole 40 mg EC Tab PO SCH (12:30)
[2017-04-07] MEDS: Azithromycin 500 MG in Sodium Chloride 0.9% 250 ML IVPB SCH (14:00)
[2017-04-07] MEDS ORDERED: Albuterol-Ipratrop 3 mg / 0.5 (3 ml) UD ONE (14:03)
--- NOTE | 2017-04-07 17:54 | CP.PCM.CON ---
History of Present Illness - History of Present Illness History of Present Illness: Reason for Consultation: COPD 51 y/o F with a PMHx of COPD, Asthma, HTN, anxiety, and angina presents with SOB. Patient reports that she was driving and started to have shortness of breath. Patient then felt like "she could not walk." Nebulizer and pump treatment did not help and she called paramedics. Patient has been hospitalized multiple times for COPD, most recently one month ago. Patient denies ever smoking but says family members at her home smoke. She reports no pets at home and does not use oxygen at home. Allergies: NKDA PMHx: COPD, Asthma, HTN, angina, anxiety, bipolar PSHx: 5 c-sections and 1 hernia repair SocialHx: Denies smoking but says multiple family members smoke around her. Denies alcohol and illicit drug use Review of Systems - Review of Systems All systems: reviewed and no additional remarkable complaints except ( complaining of shortness of breath and wheezing) Past Patient History - Infectious Disease Hx of Infectious Diseases: None - Past Medical History & Family History Past Medical History?: Yes - Past Social History Smoking Status: Never Smoked - CARDIAC Hx Cardiac Disorders: Yes Hx Hypertension: Yes Hx Peripheral Edema: Yes - PULMONARY Hx Respiratory Disorders: Yes Hx Asthma: Yes Hx Chronic Obstructive Pulmonary Disease (COPD): Yes Hx Pneumonia: Yes (2016) - NEUROLOGICAL Hx Neurological Disorder: Yes Hx Syncope: Yes (pt states unwitness syncopy yesterday) - HEENT Hx HEENT Problems: No - RENAL Hx Chronic Kidney Disease: No - ENDOCRINE/METABOLIC Hx Endocrine Disorders: No - HEMATOLOGICAL/ONCOLOGICAL Hx Blood Disorders: No - INTEGUMENTARY Hx Dermatological Problems: No - MUSCULOSKELETAL/RHEUMATOLOGICAL Hx Musculoskeletal Disorders: Yes Hx Arthritis: Yes Hx Falls: Yes - GASTROINTESTINAL Hx Gastrointestinal Disorders: No Other/Comment: HERNIA REPAIR - GENITOURINARY/GYNECOLOGICAL Hx Genitourinary Disorders: No - PSYCHIATRIC Hx Psychophysiologic Disorder: Yes Hx Anxiety: Yes Hx Bipolar Disorder: Yes Hx Depression: Yes Hx Substance Use: No - SURGICAL HISTORY Hx Surgeries: Yes Hx Section: Yes (x5) Hx Herniorrhaphy: Yes - ANESTHESIA Hx Anesthesia: Yes Hx Anesthesia Reactions: No Hx Malignant Hyperthermia: No Meds Allergies/Adverse Reactions: Allergies Allergy/AdvReac Type Severity Reaction Status Date / Time No Known Allergies Allergy Verified 04/06/17 16:56 - Medications Medications: Current Medications Albuterol/Ipratropium (Duoneb 3 Mg/0.5 Mg (3 Ml) Ud) 3 ml INH RQ6 [facility] Stop: 04/07/17 20:01 Last Admin: 04/07/17 13:53 Dose: 3 ml Amlodipine Besylate (Norvasc) 10 mg PO DAILY [facility] Last Admin: 04/07/17 12:30 Dose: 10 mg Clonidine HCl (Catapres) 0.1 mg PO TID [facility] Last Admin: 04/07/17 16:53 Dose: 0.1 mg Cyclobenzaprine HCl (Flexeril) 5 mg PO DAILY PRN PRN Reason: Muscle spasm Enoxaparin Sodium (Lovenox) 30 mg SC DAILY [facility] Last Admin: 04/07/17 11:21 Dose: 30 mg Furosemide (Lasix) 20 mg IVP BID [facility] Last Admin: 04/07/17 16:53 Dose: 20 mg Azithromycin 500 mg/ Sodium (Chloride) 250 mls @ 250 mls/hr IVPB DAILY [facility] Last Admin: 04/07/17 14:00 Dose: 250 mls/hr Ceftriaxone Sodium 1 gm/ (Sodium Chloride) 100 mls @ 100 mls/hr IVPB DAILY [facility] Last Admin: 04/07/17 10:33 Dose: 100 mls/hr Losartan Potassium (Cozaar) 100 mg PO DAILY [facility] Last Admin: 04/07/17 11:19 Dose: 100 mg Methylprednisolone (Solu-Medrol) 40 mg IVP Q8 [facility] Last Admin: 04/07/17 15:47 Dose: 40 mg Montelukast Sodium (Singulair) 10 mg PO DAILY [facility] Pantoprazole Sodium (Protonix Ec Tab) 40 mg PO DAILY [facility] Last Admin: 04/07/17 12:30 Dose: 40 mg Fluticasone/Salmeterol (Advair Diskus 250/50) 1 puff INH RQ12 [facility] Tramadol HCl (Ultram) 50 mg PO Q6 PRN PRN Reason: Pain, moderate (4-7) Physical Exam - Head Exam Head Exam: ATRAUMATIC, NORMOCEPHALIC - Eye Exam Eye Exam: Normal appearance - ENT Exam ENT Exam: Mucous Membranes Moist - Respiratory Exam Respiratory Exam: Rhonchi, Wheezes - Cardiovascular Exam Cardiovascular Exam: REGULAR RHYTHM Results - Vital Signs Recent Vital Signs: Last Vital Signs Temp 98.9 F 11/30/17 16:47 Pulse 95 H 04/07/17 16:47 Resp 22 04/07/17 16:47 BP 121/51 L 04/07/17 16:53 Pulse Ox 96 04/07/17 14:19 - Labs Result Diagrams: 04/06/17 17:46 04/06/17 17:46 Labs: Laboratory Results - last 24 hr 04/06/17 04/06/17 04/06/17 17:46 17:46 17:46 WBC 5.6 RBC 4.53 Hgb 12.7 Hct 39.0 MCV 86.0 MCH 28.1 MCHC 32.7 L RDW 14.4 Plt Count 294 MPV 8.9 Neut % (Auto) 35.1 L Lymph % (Auto) 58.2 H [place] % (Auto) 3.6 Eos % (Auto) 2.5 Baso % (Auto) 0.6 Neut # 2.0 Lymph # 3.3 [place] # 0.2 Eos # 0.1 Baso # 0.0 PT 11.8 INR 1.1 APTT 22 D-Dimer, Quantitative 839 H Sodium 136 Potassium 3.1 L Chloride 102 Carbon Dioxide 28 Anion Gap 9 L BUN 14 Creatinine 0.6 L Est GFR ( Amer) > 60 Est GFR (Non-Af Amer) > 60 Random Glucose 121 H Calcium 8.4 L Total Bilirubin 0.7 AST 23 ALT 35 Alkaline Phosphatase 56 Troponin I < 0.0120 NT-Pro-B Natriuret Pep 149 Total Protein 6.5 Albumin 3.8 Globulin 2.8 Albumin/Globulin Ratio 1.4 Urine Color Urine Clarity Urine pH Ur Specific [place] Urine Protein Urine Glucose (UA) Urine Ketones Urine Blood Urine Nitrate Urine Bilirubin Urine Urobilinogen Ur Leukocyte Esterase Urine WBC (Auto) Urine RBC (Auto) Ur Squamous Epith Cells Hyaline Casts Urine Opiates Screen Urine Methadone Screen Ur Barbiturates Screen Ur Phencyclidine Scrn Ur Amphetamines Screen U Benzodiazepines Scrn U Oth Cocaine Metabols U Cannabinoids Screen 04/07/17 04/07/17 05:21 05:21 WBC RBC Hgb Hct MCV MCH MCHC RDW Plt Count MPV Neut % (Auto) Lymph % (Auto) [place] % (Auto) Eos % (Auto) Baso % (Auto) Neut # Lymph # [place] # Eos # Baso # PT INR APTT D-Dimer, Quantitative Sodium Potassium Chloride Carbon Dioxide Anion Gap BUN Creatinine Est GFR ( Amer) Est GFR (Non-Af Amer) Random Glucose Calcium Total Bilirubin AST ALT Alkaline Phosphatase Troponin I NT-Pro-B Natriuret Pep Total Protein Albumin Globulin Albumin/Globulin Ratio Urine Color Yellow Urine Clarity Clear Urine pH 5.0 Ur Specific [place] 1.020 Urine Protein 1+ H Urine Glucose (UA) Normal Urine Ketones Negative Urine Blood Negative Urine Nitrate Negative Urine Bilirubin Negative Urine Urobilinogen Normal Ur Leukocyte Esterase Neg Urine WBC (Auto) 4 Urine RBC (Auto) 2 Ur Squamous Epith Cells 6 H Hyaline Casts 0-2 Urine Opiates Screen Negative Urine Methadone Screen Negative Ur Barbiturates Screen Negative Ur Phencyclidine Scrn Negative Ur Amphetamines Screen Negative U Benzodiazepines Scrn Positive U Oth Cocaine Metabols Negative U Cannabinoids Screen Negative Assessment & Plan (1) COPD exacerbation Status: Acute Comment: continue nebulizer treatment, IV steroids and antibiotics. Patient does not remember the medications she is been taking
--- NOTE | 2017-04-07 19:00 | CP.PCM.HP ---
History of Present Illness - History of Present Illness History of Present Illness: A 51-year-old female with PMHasthma, arthritis, anxiety, bipolar disorder, COPD , depression, HTN and pneumonia in past presents for evaluation of shortness of breath. C/Oshortness of breath since the last 3-4 days. Insidious in onset, progressive, occurs at rest, NYHA grade 4, partly relieved by bronchodilator medications. C/Owheezing for the last 3-4 days. No C/Ofever, chest pain, cough, PND. Present on Admission - Present on Admission Any Indicators Present on Admission: No Past Patient History - Infectious Disease Hx of Infectious Diseases: None - Past Medical History & Family History Past Medical History?: Yes - Past Social History Smoking Status: Never Smoked - CARDIAC Hx Cardiac Disorders: Yes Hx Hypertension: Yes Hx Peripheral Edema: Yes - PULMONARY Hx Respiratory Disorders: Yes Hx Asthma: Yes Hx Chronic Obstructive Pulmonary Disease (COPD): Yes Hx Pneumonia: Yes (2016) - NEUROLOGICAL Hx Neurological Disorder: Yes Hx Syncope: Yes (pt states unwitness syncopy yesterday) - HEENT Hx HEENT Problems: No - RENAL Hx Chronic Kidney Disease: No - ENDOCRINE/METABOLIC Hx Endocrine Disorders: No - HEMATOLOGICAL/ONCOLOGICAL Hx Blood Disorders: No - INTEGUMENTARY Hx Dermatological Problems: No - MUSCULOSKELETAL/RHEUMATOLOGICAL Hx Musculoskeletal Disorders: Yes Hx Arthritis: Yes Hx Falls: Yes - GASTROINTESTINAL Hx Gastrointestinal Disorders: No Other/Comment: HERNIA REPAIR - GENITOURINARY/GYNECOLOGICAL Hx Genitourinary Disorders: No - PSYCHIATRIC Hx Psychophysiologic Disorder: Yes Hx Anxiety: Yes Hx Bipolar Disorder: Yes Hx Depression: Yes Hx Substance Use: No - SURGICAL HISTORY Hx Surgeries: Yes Hx Section: Yes (x5) Hx Herniorrhaphy: Yes - ANESTHESIA Hx Anesthesia: Yes Hx Anesthesia Reactions: No Hx Malignant Hyperthermia: No Meds Home Medications: Home Medication List Medication Instructions Recorded Confirmed Type Albuterol HFA [Ventolin HFA 90 0.09 mg IH Q4 PRN #2 puff 04/09/17 Rx mcg/actuation (8 g)] Fluticasone/Salmeterol 250/50 1 puff INH RQ12 #1 puff 04/09/17 Rx [Advair Diskus 250/50] Montelukast [Singulair] 10 mg PO DAILY #30 tab 04/09/17 Rx predniSONE [Prednisone] 30 mg PO DAILY #18 tab 04/09/17 Rx Allergies/Adverse Reactions: Allergies Allergy/AdvReac Type Severity Reaction Status Date / Time No Known Allergies Allergy Verified 04/06/17 16:56 Physical Exam - Constitutional Appears: Well - Head Exam Head Exam: ATRAUMATIC, NORMAL INSPECTION, NORMOCEPHALIC - Eye Exam Eye Exam: EOMI, Normal appearance, PERRL Pupil Exam: NORMAL ACCOMODATION, PERRL - ENT Exam ENT Exam: Mucous Membranes Moist, Normal Exam - Neck Exam Neck exam: Positive for: Normal Inspection - Respiratory Exam Respiratory Exam: Decreased Breath Sounds - Cardiovascular Exam Cardiovascular Exam: REGULAR RHYTHM, +S1, +S2 - GI/Abdominal Exam GI & Abdominal Exam: Diminished Bowel Sounds, Soft - Rectal Exam Rectal Exam: Deferred Results - Vital Signs Recent Vital Signs: Last Vital Signs Temp 98.9 F 04/07/17 16:47 Pulse 95 H 04/07/17 16:47 Resp 22 04/07/17 16:47 BP 121/51 L 04/07/17 16:53 Pulse Ox 96 04/07/17 14:19 - Labs Result Diagrams: 04/08/17 13:39 04/09/17 11:52 Labs: Laboratory Results - last 24 hr 04/07/17 04/07/17 05:21 05:21 Urine Color Yellow Urine Clarity Clear Urine pH 5.0 Ur Specific [place] 1.020 Urine Protein 1+ H Urine Glucose (UA) Normal Urine Ketones Negative Urine Blood Negative Urine Nitrate Negative Urine Bilirubin Negative Urine Urobilinogen Normal Ur Leukocyte Esterase Neg Urine WBC (Auto) 4 Urine RBC (Auto) 2 Ur Squamous Epith Cells 6 H Hyaline Casts 0-2 Urine Opiates Screen Negative Urine Methadone Screen Negative Ur Barbiturates Screen Negative Ur Phencyclidine Scrn Negative Ur Amphetamines Screen Negative U Benzodiazepines Scrn Positive U Oth Cocaine Metabols Negative U Cannabinoids Screen Negative
[2017-04-07] MEDS: Fluticasone-Salmeterol 250-50mcg Diskus INH SCH (21:23)
--- NOTE | 2017-04-07 21:47 | CARD ---
APPROVED REPORT EKG Measurement Heart [id number] VA 210P60 [id number] <Conclusion> Sinus rhythm with 1st degree AV block Cannot rule out Anterior infarct, age undetermined Abnormal ECG
[2017-04-08] MEDS: Potassium Chloride 20 mEq ER Tab PO SCH ×2 (01:16→05:40)
[2017-04-08] MEDS: Albuterol-Ipratrop 3 mg / 0.5 (3 ml) UD INH SCH (01:21)
[2017-04-08 01:58] VITALS: RESP 20
[2017-04-08] MEDS: MethylPREDNISolone 40 mg Vial IVP SCH ×3 (05:40→21:40)
[2017-04-08] MEDS: Fluticasone-Salmeterol 250-50mcg Diskus INH SCH ×2 (09:35→19:27)
[2017-04-08] MEDS ORDERED: Influenza Vaccine 60 mcg/0.5 mL SYR (4YR UP) IM ONE (10:00)
[2017-04-08] MEDS: Enoxaparin 30 mg Syringe SC SCH (10:47)
[2017-04-08] MEDS: Pantoprazole 40 mg EC Tab PO SCH (10:47)
[2017-04-08] MEDS: Azithromycin 500 MG in Sodium Chloride 0.9% 250 ML IVPB SCH (10:50)
--- NOTE | 2017-04-08 11:08 | CP.PCM.PN ---
<Jeremiah Sotelo - Last Filed: 04/08/17 17:10> Subjective - Date & Time of Evaluation Date of Evaluation: 04/08/17 Time of Evaluation: 07:30 - Subjective Subjective: 51 y/o F with a PMHx of COPD, Asthma, HTN, anxiety, and angina presents with SOB. Patient reports that she was driving and started to have shortness of breath. Patient then felt like "she could not walk." Nebulizer and pump treatment did not help and she called paramedics. Patient has been hospitalized multiple times for COPD, most recently one month ago. Patient denies ever smoking but says family members at her home smoke. She reports no pets at home and does not use oxygen at home. Allergies: NKDA PMHx: COPD, Asthma, HTN, angina, anxiety, bipolar PSHx: 5 c-sections and 1 hernia repair Meds: See EMR SocialHx: Denies smoking but says multiple family members smoke around her. Denies alcohol and illicit drug use --------- PGY2 Resident - Medicine Progress Note Patient seen and examined at bedside. No acute distress. No overnight events. Patient reports she continues to feel SOB, however she is improving with treatment. Overall, she feels better than when she was first admitted. She also c/o itchiness of her lower extremities and arms (no rash appreciated). She states this often happens during her asthma attacks. Denies fever, chills, headache, changes in vision, chest pain, palpitations, abdominal pain, nausea/ vomiting, diarrhea/constipation, or any additional acute complaints. Objective - Vital Signs/Intake and Output Vital Signs (last 24 hours): Temp Pulse Resp BP Pulse Ox 98.2 F 67 20 109/66 97 04/08/17 08:01 04/08/17 08:01 04/08/17 08:01 04/08/17 10:47 04/08/17 08:01 Intake and Output: 04/08/17 04/08/17 06:59 18:59 Intake Total 240 Balance 240 - Medications Medications: Current Medications Amlodipine Besylate (Norvasc) 10 mg PO DAILY [facility] Last Admin: 04/07/17 12:30 Dose: 10 mg Clonidine HCl (Catapres) 0.1 mg PO TID [facility] Last Admin: 04/07/17 16:53 Dose: 0.1 mg Cyclobenzaprine HCl (Flexeril) 5 mg PO DAILY PRN PRN Reason: Muscle spasm Diphenhydramine HCl (Benadryl) 25 mg PO Q6H PRN PRN Reason: Itching / Pruritus Enoxaparin Sodium (Lovenox) 30 mg SC DAILY [facility] Last Admin: 04/08/17 10:47 Dose: 30 mg Furosemide (Lasix) 20 mg IVP BID [facility] Last Admin: 04/08/17 10:47 Dose: 20 mg Azithromycin 500 mg/ Sodium (Chloride) 250 mls @ 250 mls/hr IVPB DAILY [facility] Last Admin: 04/08/17 10:50 Dose: 250 mls/hr Ceftriaxone Sodium 1 gm/ (Sodium Chloride) 100 mls @ 100 mls/hr IVPB DAILY [facility] Last Admin: 04/08/17 10:48 Dose: 100 mls/hr Losartan Potassium (Cozaar) 100 mg PO DAILY [facility] Last Admin: 04/08/17 10:47 Dose: 100 mg Methylprednisolone (Solu-Medrol) 40 mg IVP Q8 [facility] Last Admin: 04/08/17 05:40 Dose: 40 mg Montelukast Sodium (Singulair) 10 mg PO DAILY [facility] Pantoprazole Sodium (Protonix Ec Tab) 40 mg PO DAILY [facility] Last Admin: 04/08/17 10:47 Dose: 40 mg Fluticasone/Salmeterol (Advair Diskus 250/50) 1 puff INH RQ12 [facility] Last Admin: 04/08/17 09:35 Dose: 1 puff Tramadol HCl (Ultram) 50 mg PO Q6 PRN PRN Reason: Pain, moderate (4-7) - Labs Labs: 04/06/17 17:46 04/06/17 17:46 PT 11.8 SECONDS (9.7-12.2) 04/06/17 17:46 INR 1.1 04/06/17 17:46 APTT 22 SECONDS (21-34) 04/06/17 17:46 - Constitutional Appears: Non-toxic, No Acute Distress - Head Exam Head Exam: ATRAUMATIC, NORMAL INSPECTION - Eye Exam Eye Exam: EOMI, Normal appearance, PERRL - ENT Exam ENT Exam: Mucous Membranes Dry - Neck Exam Neck Exam: Full ROM. absent: Lymphadenopathy - Respiratory Exam Respiratory Exam: Decreased Breath Sounds, Wheezes, NORMAL BREATHING PATTERN - Cardiovascular Exam Cardiovascular Exam: REGULAR RHYTHM, +S1, +S2 - GI/Abdominal Exam GI & Abdominal Exam: Soft, Normal Bowel Sounds. absent: Guarding, Tenderness - Extremities Exam Extremities Exam: Full ROM, Normal Capillary Refill, Pedal Edema (mild). absent : Tenderness - Back Exam Back Exam: NORMAL INSPECTION. absent: CVA tenderness (L), CVA tenderness (R) - Neurological Exam Neurological Exam: Alert, Awake, CN II-XII Intact, Oriented x3 - Psychiatric Exam Psychiatric exam: Normal Affect, Normal Mood - Skin Skin Exam: Dry, Intact, Normal Color Additional comments: no rash appreciated Assessment and Plan - Assessment and Plan (Free Text) Assessment: COPD exacerbation 04/08: switch to p.o. prednisone Continue nebulizer treatment Azithromycin 500 mgIVPB DAILY Ceftriaxone 1 gm IVPB DAILY Solu-Medrol) 40 mg IVP Q8 [facility] Singulair) 10 mg PO DAILY [facility] Advair Diskus 250/50) 1 puff INH RQ12 [facility] Pulm Consult, Dr. Alva, help appreciated. Hypertension 04/08: well controlled at 109/66. Norvasc) 10 mg PO DAILY [facility] Catapres) 0.1 mg PO TID [facility] Lasix) 20 mg IVP BID [facility] Cozaar) 100 mg PO DAILY [facility] Itchiness Benadryl) 25 mg PO Q6H PRN Electrolyte Imbalance Hypophosphatemia, P2.1 = Neutra phos 1 packet BID (x6 packets total) Prophylaxis Lovenox) 30 mg SC DAILY [facility] Protonix Ec Tab) 40 mg PO DAILY [facility] SCDs Case discussed with attending. All medical management as per Dr. Philly Ortiz <Nithin Ortiz - Last Filed: 04/11/17 12:43> Objective - Vital Signs/Intake and Output Vital Signs (last 24 hours): Temp Pulse Resp BP Pulse Ox 97.8 F 60 20 111/63 98 04/09/17 09:52 04/09/17 09:52 04/09/17 09:52 04/09/17 10:21 04/09/17 09:52 - Labs Labs: 04/08/17 13:39 04/09/17 11:52 PT 11.8 SECONDS (9.7-12.2) 04/06/17 17:46 INR 1.1 04/06/17 17:46 APTT 22 SECONDS (21-34) 04/06/17 17:46 Attending/Attestation - Attestation I have personally seen and examined this patient.: Yes I have fully participated in the care of the patient.: Yes I have reviewed all pertinent clinical information, including history, physical exam and plan: Yes Notes (Text): Patient examined. No acute distress. Patient is still short of breath, but is improving with treatment. Itching of lower extremities present. EKG shows first-degree AV block. Chest x-ray normal. CT angiography chest normal. Continue azithromycin and ceftriaxone. Continue bronchodilators. Continue montelukast. Continue antihypertensive medications. Continue supportive care.
--- NOTE | 2017-04-08 12:06 | CP.PCM.PN ---
Subjective - Date & Time of Evaluation Date of Evaluation: 04/08/17 Time of Evaluation: 08:40 - Subjective Subjective: the patient seen and examined Breathing and cough much improved Sitting comfortably in no acute distress Afebrile Objective - Vital Signs/Intake and Output Vital Signs (last 24 hours): Temp Pulse Resp BP Pulse Ox 98.2 F 67 20 109/66 97 04/08/17 08:01 04/08/17 08:01 04/08/17 08:01 04/08/17 10:47 04/08/17 08:01 Intake and Output: 04/08/17 04/08/17 06:59 18:59 Intake Total 240 Balance 240 - Medications Medications: Current Medications Amlodipine Besylate (Norvasc) 10 mg PO DAILY [facility] Last Admin: 04/07/17 12:30 Dose: 10 mg Clonidine HCl (Catapres) 0.1 mg PO TID [facility] Last Admin: 04/07/17 16:53 Dose: 0.1 mg Cyclobenzaprine HCl (Flexeril) 5 mg PO DAILY PRN PRN Reason: Muscle spasm Diphenhydramine HCl (Benadryl) 25 mg PO Q6H PRN PRN Reason: Itching / Pruritus Enoxaparin Sodium (Lovenox) 30 mg SC DAILY [facility] Last Admin: 04/08/17 10:47 Dose: 30 mg Furosemide (Lasix) 20 mg IVP BID [facility] Last Admin: 04/08/17 10:47 Dose: 20 mg Azithromycin 500 mg/ Sodium (Chloride) 250 mls @ 250 mls/hr IVPB [facility]ILY [facility] Last Admin: 04/08/17 10:50 Dose: 250 mls/hr Ceftriaxone Sodium 1 gm/ (Sodium Chloride) 100 mls @ 100 mls/hr IVPB [facility]ILY [facility] Last Admin: 04/08/17 10:48 Dose: 100 mls/hr Losartan Potassium (Cozaar) 100 mg PO DAILY [facility] Last Admin: 04/08/17 10:47 Dose: 100 mg Methylprednisolone (Solu-Medrol) 40 mg IVP Q8 [facility] Last Admin: 04/08/17 05:40 Dose: 40 mg Montelukast Sodium (Singulair) 10 mg PO DAILY [facility] Pantoprazole Sodium (Protonix Ec Tab) 40 mg PO DAILY [facility] Last Admin: 04/08/17 10:47 Dose: 40 mg Fluticasone/Salmeterol (Advair Diskus 250/50) 1 puff INH RQ12 [facility] Last Admin: 04/08/17 09:35 Dose: 1 puff Tramadol HCl (Ultram) 50 mg PO Q6 PRN PRN Reason: Pain, moderate (4-7) - Labs Labs: 04/06/17 17:46 04/06/17 17:46 PT 11.8 SECONDS (9.7-12.2) 04/06/17 17:46 INR 1.1 04/06/17 17:46 APTT 22 SECONDS (21-34) 04/06/17 17:46 - Head Exam Head Exam: ATRAUMATIC, NORMOCEPHALIC - Eye Exam Eye Exam: Normal appearance - ENT Exam ENT Exam: Mucous Membranes Moist - Neck Exam Neck Exam: Normal Inspection - Respiratory Exam Respiratory Exam: Clear to Ausculation Bilateral - Cardiovascular Exam Cardiovascular Exam: REGULAR RHYTHM Assessment and Plan (1) COPD exacerbation Assessment & Plan: switch to p.o. prednisone Continue nebulizer treatment Breathing much improved Status: Acute
[2017-04-08 13:49] LABS: BASO % 0.1 % (0.0-2.0); HEMATOCRIT 38.6 % (34.0-47.0); LYMPH # 0.6 K/uL (1.0-4.3); MEAN CELL VOLUME 86.8 fL (81.0-99.0); MEAN CORPUSCULAR HGB CONC 32.3 g/dL (33.0-37.0); MONO # 0.6 K/uL (0.0-0.8); MONO % 6.2 % (0.0-10.0); NRBC % 0.2 % (0.0-2.0); PLATELET COUNT 284 K/uL (130-400)
[2017-04-08 14:13] LABS: ALKALINE PHOSPHATASE 47 U/L (38-126); ALT/SGPT 43 U/L (9-52); AST/SGOT 20 U/L (14-36); BILIRUBIN,TOTAL 0.4 mg/dL (0.2-1.3); BLOOD UREA NITROGEN 17 mg/dL (7-17); CALCIUM 9.1 mg/dl (8.6-10.4); CARBON DIOXIDE 32 mmol/L (22-30); CHLORIDE 103 mmol/L (98-107); GFR AFRICAN-AMERICAN > 60; GLUCOSE,RANDOM 138 mg/dL (65-105); MAGNESIUM 1.8 mg/dL (1.6-2.3); PHOSPHOROUS 2.1 mg/dL (2.5-4.5); POTASSIUM 5.3 mmol/L (3.6-5.2); SODIUM 141 mmol/L (132-148); TOTAL PROTEIN 8.5 g/dL (6.3-8.3)
[2017-04-08 15:47] LABS: NEUTROPHIL 86 % (50-75); TOTAL CELLS COUNTED 100
[2017-04-08] MEDS ORDERED: Potassium & Sodium Phosphate PO SCH (18:00)
--- NOTE | 2017-04-08 19:54 | CP.PCM.PN ---
Subjective - Date & Time of Evaluation Date of Evaluation: 04/08/17 Time of Evaluation: 08:00 - Subjective Subjective: clinically same Objective - Vital Signs/Intake and Output Vital Signs (last 24 hours): Temp Pulse Resp BP Pulse Ox 98 F 79 20 159/76 H 97 04/08/17 15:40 04/08/17 15:40 04/08/17 15:40 04/08/17 17:54 04/08/17 15:40 - Medications Medications: Current Medications Amlodipine Besylate (Norvasc) 10 mg PO DAILY [facility] Last Admin: 04/08/17 13:40 Dose: 10 mg Clonidine HCl (Catapres) 0.1 mg PO TID [facility] Last Admin: 04/08/17 17:53 Dose: 0.1 mg Cyclobenzaprine HCl (Flexeril) 5 mg PO DAILY PRN PRN Reason: Muscle spasm Diphenhydramine HCl (Benadryl) 25 mg PO Q6H PRN PRN Reason: Itching / Pruritus Enoxaparin Sodium (Lovenox) 30 mg SC DAILY [facility] Last Admin: 04/08/17 10:47 Dose: 30 mg Furosemide (Lasix) 20 mg IVP BID [facility] Last Admin: 04/08/17 17:54 Dose: 20 mg Azithromycin 500 mg/ Sodium (Chloride) 250 mls @ 250 mls/hr IVPB DAILY [facility] Last Admin: 04/08/17 10:50 Dose: 250 mls/hr Ceftriaxone Sodium 1 gm/ (Sodium Chloride) 100 mls @ 100 mls/hr IVPB DAILY [facility] Last Admin: 04/08/17 10:48 Dose: 100 mls/hr Losartan Potassium (Cozaar) 100 mg PO DAILY [facility] Last Admin: 04/08/17 10:47 Dose: 100 mg Methylprednisolone (Solu-Medrol) 40 mg IVP Q8 [facility] Last Admin: 04/08/17 13:40 Dose: 40 mg Montelukast Sodium (Singulair) 10 mg PO DAILY [facility] Last Admin: 04/08/17 13:40 Dose: 10 mg Pantoprazole Sodium (Protonix Ec Tab) 40 mg PO DAILY [facility] Last Admin: 04/08/17 10:47 Dose: 40 mg Potassium Phos/Sodium Phos (Neutra-Phos) 1 pkt PO BID [facility] Stop: 04/11/17 10:01 Fluticasone/Salmeterol (Advair Diskus 250/50) 1 puff INH RQ12 [facility] Last Admin: 04/08/17 19:27 Dose: 1 puff Tramadol HCl (Ultram) 50 mg PO Q6 PRN PRN Reason: Pain, moderate (4-7) - Labs Labs: 04/08/17 13:39 04/08/17 13:39 PT 11.8 SECONDS (9.7-12.2) 04/06/17 17:46 INR 1.1 04/06/17 17:46 APTT 22 SECONDS (21-34) 04/06/17 17:46 - Constitutional Appears: Well - Head Exam Head Exam: ATRAUMATIC, NORMAL INSPECTION, NORMOCEPHALIC - Eye Exam Eye Exam: EOMI, Normal appearance, PERRL Pupil Exam: NORMAL ACCOMODATION, PERRL - ENT Exam ENT Exam: Mucous Membranes Moist, Normal Exam - Neck Exam Neck Exam: Full ROM, Normal Inspection. absent: Lymphadenopathy - Respiratory Exam Respiratory Exam: Decreased Breath Sounds - Cardiovascular Exam Cardiovascular Exam: REGULAR RHYTHM, +S1, +S2 - GI/Abdominal Exam GI & Abdominal Exam: Soft, Diminished Bowel Sounds - Rectal Exam Rectal Exam: Deferred Assessment and Plan (1) Abnormal EKG Status: Acute (2) Allergic asthma Status: Acute (3) Allergic asthma with acute exacerbation Status: Acute (4) Allergic reaction Status: Acute (5) Anxiety Status: Acute (6) Arthralgia of knee Status: Acute (7) Asthma Status: Acute (8) Asthma Status: Acute (9) Asthma exacerbation Status: Acute (10) COPD exacerbation Status: Acute (11) Chest pain Status: Acute (12) Chronic leg pain Status: Acute (13) HTN (hypertension) Status: Acute (14) Morbid obesity Status: Acute (15) Prophylactic measure Status: Acute (16) Shortness of breath Status: Acute - Assessment and Plan (Free Text) Plan: Patient examined. Breathing and cough are much improved. Patient better. Continue ceftriaxone and azithromycin. Continue montelukast. Continue antihypertensive medications. Continue bronchodilators. Continue supportive care.
[2017-04-09] MEDS ORDERED: Sodium Phosphate 15 MMOLE in Sodium Chloride 0.9% 250 ML IVPB ONE
[2017-04-09] MEDS: MethylPREDNISolone 40 mg Vial IVP SCH (05:54)
[2017-04-09] MEDS: Fluticasone-Salmeterol 250-50mcg Diskus INH SCH (08:48)
[2017-04-09 09:53] VITALS: BP 111/63; PULSE 60; TEMP 97.8; O2SAT 98
--- NOTE | 2017-04-09 10:14 | CP.PCM.PN ---
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 prednisone in tapering dose Objective - Vital Signs/Intake and Output Vital Signs (last 24 hours): Temp Pulse Resp BP Pulse Ox 97.8 F 60 20 111/63 98 04/09/17 09:52 04/09/17 09:52 04/09/17 09:52 04/09/17 09:52 04/09/17 09:52 Intake and Output: 04/09/17 04/09/17 06:59 18:59 Intake Total 670 Balance 670 - Medications Medications: Current Medications Amlodipine Besylate (Norvasc) 10 mg PO DAILY [facility] Last Admin: 04/08/17 13:40 Dose: 10 mg Clonidine HCl (Catapres) 0.1 mg PO TID [facility] Last Admin: 04/08/17 21:40 Dose: 0.1 mg Cyclobenzaprine HCl (Flexeril) 5 mg PO DAILY PRN PRN Reason: Muscle spasm Diphenhydramine HCl (Benadryl) 25 mg PO Q6H PRN PRN Reason: Itching / Pruritus Last Admin: 04/09/17 05:54 Dose: 25 mg Enoxaparin Sodium (Lovenox) 30 mg SC DAILY [facility] Last Admin: 04/08/17 10:47 Dose: 30 mg Furosemide (Lasix) 20 mg IVP BID [facility] Last Admin: 04/08/17 17:54 Dose: 20 mg Azithromycin 500 mg/ Sodium (Chloride) 250 mls @ 250 mls/hr IVPB DAILY [facility] Last Admin: 04/08/17 10:50 Dose: 250 mls/hr Ceftriaxone Sodium 1 gm/ (Sodium Chloride) 100 mls @ 100 mls/hr IVPB DAILY [facility] Last Admin: 04/08/17 10:48 Dose: 100 mls/hr Losartan Potassium (Cozaar) 100 mg PO DAILY [facility] Last Admin: 04/08/17 10:47 Dose: 100 mg Methylprednisolone (Solu-Medrol) 40 mg IVP Q8 [facility] Last Admin: 04/09/17 05:54 Dose: 40 mg Montelukast Sodium (Singulair) 10 mg PO DAILY [facility] Last Admin: 04/08/17 13:40 Dose: 10 mg Pantoprazole Sodium (Protonix Ec Tab) 40 mg PO DAILY [facility] Last Admin: 04/08/17 10:47 Dose: 40 mg Fluticasone/Salmeterol (Advair Diskus 250/50) 1 puff INH RQ12 [facility] Last Admin: 04/09/17 08:48 Dose: 1 puff Tramadol HCl (Ultram) 50 mg PO Q6 PRN PRN Reason: Pain, moderate (4-7) - Labs Labs: 04/08/17 13:39 04/08/17 13:39 PT 11.8 SECONDS (9.7-12.2) 04/06/17 17:46 INR 1.1 04/06/17 17:46 APTT 22 SECONDS (21-34) 04/06/17 17:46 Assessment and Plan (1) COPD exacerbation Status: Acute
[2017-04-09] MEDS: Pantoprazole 40 mg EC Tab PO SCH (10:21)
[2017-04-09] MEDS: Enoxaparin 30 mg Syringe SC SCH (10:22)
[2017-04-09] MEDS: Azithromycin 500 MG in Sodium Chloride 0.9% 250 ML IVPB SCH (11:59)
[2017-04-09 12:28] LABS: BLOOD UREA NITROGEN 20 mg/dL (7-17); CALCIUM 8.9 mg/dl (8.6-10.4); CARBON DIOXIDE 36 mmol/L (22-30); CHLORIDE 99 mmol/L (98-107); GFR AFRICAN-AMERICAN > 60; GLUCOSE,RANDOM 185 mg/dL (65-105); POTASSIUM 4.3 mmol/L (3.6-5.2); SODIUM 140 mmol/L (132-148)
--- NOTE | 2017-04-09 13:35 | CP.PCM.PN ---
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 weber today cleared for discharge home from pulmonary stand point with taper dose of prednisone lab repeated today- WNL seen by Dr. Philly lee today and cleared patient to be discharged home today and f /u with his office in 3-5 days Objective - Vital Signs/Intake and Output Vital Signs (last 24 hours): Temp Pulse Resp BP Pulse Ox 97.8 F 60 20 111/63 98 04/09/17 09:52 04/09/17 09:52 04/09/17 09:52 04/09/17 10:21 04/09/17 09:52 Intake and Output: 04/09/17 04/09/17 06:59 18:59 Intake Total 670 Balance 670 - Medications Medications: Current Medications Amlodipine Besylate (Norvasc) 10 mg PO DAILY [facility] Last Admin: 04/09/17 10:21 Dose: 10 mg Clonidine HCl (Catapres) 0.1 mg PO TID [facility] Last Admin: 04/09/17 10:21 Dose: 0.1 mg Cyclobenzaprine HCl (Flexeril) 5 mg PO DAILY PRN PRN Reason: Muscle spasm Diphenhydramine HCl (Benadryl) 25 mg PO Q6H PRN PRN Reason: Itching / Pruritus Last Admin: 04/09/17 05:54 Dose: 25 mg Enoxaparin Sodium (Lovenox) 30 mg SC DAILY [facility] Last Admin: 04/09/17 10:22 Dose: 30 mg Furosemide (Lasix) 20 mg IVP BID [facility] Last Admin: 04/09/17 10:21 Dose: 20 mg Azithromycin 500 mg/ Sodium (Chloride) 250 mls @ 250 mls/hr IVPB DAILY [facility] Last Admin: 04/09/17 11:59 Dose: 250 mls/hr Ceftriaxone Sodium 1 gm/ (Sodium Chloride) 100 mls @ 100 mls/hr IVPB DAILY [facility] Last Admin: 04/09/17 10:22 Dose: 100 mls/hr Losartan Potassium (Cozaar) 100 mg PO DAILY [facility] Last Admin: 04/09/17 10:21 Dose: 100 mg Methylprednisolone (Solu-Medrol) 40 mg IVP Q8 [facility] Last Admin: 04/09/17 05:54 Dose: 40 mg Montelukast Sodium (Singulair) 10 mg PO DAILY [facility] Last Admin: 04/09/17 10:21 Dose: 10 mg Pantoprazole Sodium (Protonix Ec Tab) 40 mg PO DAILY [facility] Last Admin: 04/09/17 10:21 Dose: 40 mg Fluticasone/Salmeterol (Advair Diskus 250/50) 1 puff INH RQ12 [facility] Last Admin: 04/09/17 08:48 Dose: 1 puff Tramadol HCl (Ultram) 50 mg PO Q6 PRN PRN Reason: Pain, moderate (4-7) - Labs Labs: 04/08/17 13:39 04/09/17 11:52 PT 11.8 SECONDS (9.7-12.2) 04/06/17 17:46 INR 1.1 04/06/17 17:46 APTT 22 SECONDS (21-34) 04/06/17 17:46
== END 2017-04-09 15:20 | disposition home or self-care (01) | DRG 88 ==
LOC: C.ER 16:22 → C.9E 23:23 → C.3T 04-07 21:07
PROVIDERS: ADMIT Internal Medicine Nephrology; ATTEND Internal Medicine Nephrology
DX: J44.1 Chronic obstructive pulmonary disease with (acute) exacerbation (principal); J45.901 Unspecified asthma with (acute) exacerbation; E66.01 Morbid (severe) obesity due to excess calories; Z68.43 Body mass index [BMI] 50.0-59.9, adult; I10 Essential (primary) hypertension; F31.9 Bipolar disorder, unspecified; E83.39 Other disorders of phosphorus metabolism; F41.9 Anxiety disorder, unspecified; G89.29 Other chronic pain; I44.0 Atrioventricular block, first degree; Z79.51 Long term (current) use of inhaled steroids; Z79.899 Other long term (current) drug therapy; Z87.01 Personal history of pneumonia (recurrent)

== ENCOUNTER 2017-04-25 19:40 | Inpatient (IN) | payer MEDICAID ==
--- NOTE | 2017-04-25 20:45 | C.PDOC ---
History Of Present Illness Patient is a 51 y/o female who presents to the ED with a complaint of SOB for the last 2 days. Patient admits to a productive cough with yellow sputum; reports to have used inhaler at home with no improvement. Patient also notes feeling SOB with exertion. Denies fever or chills. Patient is speaking in complete sentences. No other physical complaints at this time. Time Seen by Provider: 04/25/17 20:44 Chief Complaint (Nursing): Shortness Of Breath History Per: Patient History/Exam Limitations: no limitations Onset/Duration Of Symptoms: Days (2 days) Current Symptoms Are (Timing): Still Present Initiating Event: Upper Respiratory Illness Exacerbating Factor(s): Exertion, Coughing (positive yellow sputum) Current Respiratory Medications: See Home Med List, Steroid Inhaler Severity: Moderate Pain Scale Rating Of: 4 Associated Symptoms: Productive Cough. denies: Fever, Chills Reports Recently: Seen In ED, Treated By A Physician, Hospitalized Recent travel outside of the [place]: No Additional History Per: Patient Past Medical History Reviewed: Historical Data, Nursing Documentation, Vital Signs Vital Signs: Last Vital Signs Temp 99.4 F 04/25/17 19:50 Pulse 100 H 04/25/17 19:50 Resp 26 H 04/25/17 19:59 BP 133/72 04/25/17 19:50 Pulse Ox 99 04/25/17 21:41 - Medical History PMH: Anxiety, Arthritis, Asthma, Bipolar Disorder, COPD, Depression, HTN, Peripheral Edema, Pneumonia (2016) Denies: Chronic Kidney Disease Surgical History: No Surg Hx Family History: States: Unknown Family Hx - Social History Hx Alcohol Use: No Hx Substance Use: No - Immunization History Hx Tetanus Toxoid Vaccination: No Hx Influenza Vaccination: No Hx Pneumococcal Vaccination: No Review Of Systems Constitutional: Negative for: Fever, Chills Eyes: Negative for: Vision Change Cardiovascular: Negative for: Chest Pain Respiratory: Positive for: Cough (productive - yellow sputum), Shortness of Breath, SOB with Excertion Gastrointestinal: Negative for: Nausea, Vomiting Genitourinary: Negative for: Dysuria Musculoskeletal: Negative for: Back Pain Skin: Negative for: Rash Neurological: Negative for: Weakness Psych: Negative for: Anxiety Physical Exam - Physical Exam Appears: Well, Non-toxic, Other (morbidly obese) Skin: Normal Color, Warm, Dry Head: Normacephalic Eye(s): bilateral: Normal Inspection Oral Mucosa: Moist Neck: Supple Cardiovascular: Rhythm Regular, No Murmur Respiratory: No Rales, No Rhonchi, Wheezing (diffusely), Other (speaking in complete sentences) Gastrointestinal/Abdominal: Soft, No Tenderness Back: Normal Inspection Extremity: No Tenderness, Swelling (bilateral legs) Extremity: Bilateral: Atraumatic, Normal Color And Temperature Pulses: Left Dorsalis Pedis: Normal, Right Dorsalis Pedis: Normal Neurological/Psych: Oriented x3, Normal Speech, Normal Cognition Gait: Steady ED Course And Treatment - Laboratory Results Result Diagrams: 04/25/17 21:06 04/25/17 20:40 ECG: Viewed By Me ECG Rhythm: Sinus Rhythm (92), Nonspecific Changes Interpretation Of ECG: borderline EKG Rate From EC (bpm) O2 Sat by Pulse Oximetry: 99 (room air) Pulse Ox Interpretation: Normal Progress Note: EKG, CXR, UA, and blood work ordered. Albuterol, Medrol, and nebulizer treatment administered. Disposition Discussed With DrKath: Nithin Ortiz Comment: accepted the pt on his service and took over the care at 10 PM Doctor Will See Patient In The: Hospital Counseled Patient/Family Regarding: Studies Performed, Diagnosis - Disposition Disposition: HOSPITALIZED Disposition Time: 20:45 Condition: FAIR Forms: [facility] (Surinamese) - POA Present On Arrival: Poor Glycemic Control - Clinical Impression Clinical Impression: Dyspnea, Acute asthma exacerbation - Scribe Statement The provider has reviewed the documentation as recorded by the Scribe Juliet Kaiser All medical record entries made by the Scribe were at my direction and personally dictated by me. I have reviewed the chart and agree that the record accurately reflects my personal performance of the history, physical exam, medical decision making, and the department course for this patient. I have also personally directed, reviewed, and agree with the discharge instructions and disposition. Decision To Admit - Pt Status Changed To: Hospital Disposition Of: Inpatient - Admit Certification Admit to Inpatient:: After my assessment, the patient will require hospitalization for at least two midnights. This is because of the severity of symptoms shown, intensity of services needed, and/or the medical risk in this patient being treated as an outpatient. - InPatient: Physician Admission Certification: I certify that this patient requires 2 or more midnights of care for the following reason:: After my assessment, the patient will require hospitalization for at least two midnights. This is because of the severity of symptoms shown, intensity of services needed, and/or the medical risk in this patient being treated as an outpatient. - . Bed Request Type: Regular Patient Diagnosis: Dyspnea, Acute asthma exacerbation
[2017-04-25 21:06] LABS: ALB/GLOB RATIO 1.3 (1.0-2.1); ALKALINE PHOSPHATASE 54 U/L (38-126); ALT/SGPT 43 U/L (9-52); AST/SGOT 22 U/L (14-36); BILIRUBIN,TOTAL 0.7 mg/dL (0.2-1.3); BLOOD UREA NITROGEN 10 mg/dL (7-17); CALCIUM 8.6 mg/dl (8.6-10.4); CARBON DIOXIDE 31 mmol/L (22-30); CHLORIDE 102 mmol/L (98-107); GFR AFRICAN-AMERICAN > 60; GLUCOSE,RANDOM 122 mg/dL (65-105); POTASSIUM 3.6 mmol/L (3.6-5.2); SODIUM 141 mmol/L (132-148); TOTAL PROTEIN 7.4 g/dL (6.3-8.3)
[2017-04-25 21:19] LABS: BASO % 0.6 % (0.0-2.0); EOS # 0.1 K/uL (0.0-0.7); HEMATOCRIT 40.3 % (34.0-47.0); LYMPH # 1.3 K/uL (1.0-4.3); LYMPH % 22.1 % (20.0-40.0); MEAN CELL VOLUME 85.3 fL (81.0-99.0); MEAN CORPUSCULAR HEMOGLOBIN 28.1 pg (27.0-31.0); MEAN PLATELET VOLUME 8.7 fL (7.2-11.7); MONO # 0.3 K/uL (0.0-0.8); MONO % 5.4 % (0.0-10.0); NRBC % 0.1 % (0.0-2.0); RED CELL DISTRIBUTION WIDTH 14.4 % (11.5-14.5); WHITE BLOOD COUNT 6.1 K/uL (4.8-10.8)
[2017-04-25 21:24] LABS: INR 1.1
[2017-04-25] MEDS: Albuterol-Ipratrop 3 mg / 0.5 (3 ml) UD IH SCH ×3 (21:25→21:46)
[2017-04-25] MEDS ORDERED: Albuterol-Ipratrop 3 mg / 0.5 (3 ml) UD ONE (21:37)
[2017-04-25] MEDS ORDERED: Albuterol-Ipratrop 3 mg / 0.5 (3 ml) UD INH PRN (22:13)
[2017-04-26] MEDS: Albuterol-Ipratrop 3 mg / 0.5 (3 ml) UD IH SCH ×4 (01:35→19:35)
[2017-04-26] MEDS: MethylPREDNISolone 40 mg Vial IVP SCH ×3 (05:09→21:31)
--- NOTE | 2017-04-26 09:17 | RAD ---
PROCEDURE: CHEST RADIOGRAPH, 1 VIEW HISTORY: SOB COMPARISON: 04/06/2017 FINDINGS: LUNGS: Limited visualization of each extreme costophrenic angle. Prominent body habitus and prominent breast soft tissues contribute to this. No dense consolidation appreciated. Minimal atelectatic changes at the right lung base and/or minimal inferolateral pleural parenchymal pathology here cannot be excluded. PLEURA: No pneumothorax. No large pleural effusion. Trace right pleural effusion-not excluded CARDIOVASCULAR: Normal heart size. No olivia pulmonary venous congestion OSSEOUS STRUCTURES: Mild thoracic spondylosis bilateral shoulder arthrosis. VISUALIZED UPPER ABDOMEN: Normal. OTHER FINDINGS: None. IMPRESSION: Limited exam -for reasons stated above. No dense consolidation to suggest a moderate or large infiltrate. Exam is most limited regarding the right costophrenic angle -here small atelectatic changes and/or right pleural parenchymal pathology including a very small right pleural effusion cannot be excluded.
[2017-04-26] MEDS: Fluticasone-Salmeterol 250-50mcg Diskus INH SCH ×2 (10:04→19:37)
[2017-04-26] MEDS: Pantoprazole 40 mg EC Tab PO SCH (10:46)
[2017-04-26] MEDS: Enoxaparin 40 mg Syringe SC SCH (10:47)
[2017-04-26 13:07] LABS: RBC URINE 3 /hpf (0-3); URINE BILIRUBIN NEGATIVE (NEGATIVE); URINE BLOOD NEGATIVE (NEGATIVE); URINE COLOR Yellow (YELLOW); URINE GLUCOSE (UA) 1+ mg/dL (Normal); URINE KETONE NEGATIVE (NEGATIVE); URINE LEUKOCYTE ESTERASE NEG Leu/uL (Negative); URINE PROTEIN NEGATIVE (NEGATIVE); URINE UROBILINOGEN NORMAL mg/dL (0.2-1.0); WBC CLUMPS FEW /hpf; WBC URINE 17 /hpf (0-5)
--- NOTE | 2017-04-26 15:06 | VASCLAB ---
PROCEDURE: Lower Extremity Venous Duplex Exam. HISTORY: pain on legs PRIORS: None. TECHNIQUE: Bilateral common femoral, femoral, popliteal and posterior tibial, peroneal and great saphenous veins were evaluated. Flow was assessed with color Doppler, compressibility, assessment of phasic flow and augmentation response. Report prepared by Butch Galeano, GENOV[place], RVT FINDINGS: RIGHT: 1. Common Femoral Vein: 1.1. Compressibility - Fully compressible: Thrombus - None : Flow - Phasic: Augmentation -Normal: Reflux - None. 2. Femoral Vein: 2.1. Compressibility - Fully compressible: Thrombus - None : Flow - Phasic: Augmentation -Normal: Reflux - None. 3. Popliteal Vein: 3.1. Compressibility - Fully compressible: Thrombus - None : Flow - Phasic: Augmentation -Normal: Reflux - None. 4. Posterior Tibial Vein: 4.1. Compressibility - Fully compressible: Thrombus - None: Flow - Phasic: Augmentation -Normal: Reflux - None. 5. Peroneal Vein: 5.1. Compressibility - Fully compressible: Thrombus - None: Flow - Phasic: Augmentation -Normal: Reflux - None. 6. Great Saphenous Vein: 6.1. Compressibility - Fully compressible: Thrombus - None: Flow - Phasic: Augmentation - Normal: Reflux - None. LEFT: 1. Common Femoral Vein: 1.1. Compressibility - Fully compressible: Thrombus - None: Flow - Phasic: Augmentation -Normal: Reflux - None. 2. Femoral Vein: 2.1. Compressibility - Fully compressible: Thrombus - None: Flow - Phasic: Augmentation -Normal: Reflux - None. 3. Popliteal Vein: 3.1. Compressibility - Fully compressible: Thrombus - None : Flow - Phasic: Augmentation -Normal: Reflux - None. 4. Posterior Tibial Vein: 4.1. Compressibility - Fully compressible: Thrombus - None: Flow - Phasic: Augmentation -Normal: Reflux - None. 5. Peroneal Vein: 5.1. Compressibility - Fully compressible: Thrombus - None: Flow - Phasic: Augmentation -Normal: Reflux - None. 6. Great Saphenous Vein: 6.1. Compressibility - Fully compressible: Thrombus - None: Flow - Phasic: Augmentation - Normal: Reflux - None. OTHER FINDINGS: Right: Anechoic irregular shaped avascular structure measuring 4.6 x 2.5 centimeter noted behind the right knee, most compatible with a Rosa's cyst. Left: None significant. IMPRESSION: Right: No evidence of deep or superficial vein thrombosis of the right lower extremity. Normal valve function noted of the right side. Left: No evidence of deep or superficial vein thrombosis of the left lower extremity. Normal valve function noted of the left side.
--- NOTE | 2017-04-26 18:21 | CARD ---
APPROVED REPORT EKG Measurement Heart [id number] ID [id number] <Conclusion> Normal sinus rhythm Possible Left atrial enlargement Borderline ECG
--- NOTE | 2017-04-26 18:31 | CP.PCM.CON ---
History of Present Illness - History of Present Illness History of Present Illness: Reason for consultation: shortness of breath Patient is 51-year-old female with history of COPD/asthma presented to emergency room complaining of shortness of breath for the past 2 days Also complaining of cough productive of yellowish phlegm and has been using inhalers without any improvement. Allergies: NKDA PMHx: COPD, Asthma, HTN, angina, anxiety, bipolar PSHx: 5 c-sections and 1 hernia repair SocialHx: Denies smoking but says multiple family members smoke around her. Denies alcohol and illicit drug use Review of Systems - Review of Systems All systems: reviewed and no additional remarkable complaints except (shortness of breath, productive cough) Past Patient History - Infectious Disease Hx of Infectious Diseases: None - Past Medical History & Family History Past Medical History?: Yes - Past Social History Smoking Status: Unknown If Ever Smoked - CARDIAC Hx Cardiac Disorders: Yes Hx Hypertension: Yes Hx Peripheral Edema: Yes - PULMONARY Hx Respiratory Disorders: Yes Hx Asthma: Yes Hx Chronic Obstructive Pulmonary Disease (COPD): Yes Hx Pneumonia: Yes (2016) - NEUROLOGICAL Hx Neurological Disorder: No - HEENT Hx HEENT Problems: No - RENAL Hx Chronic Kidney Disease: No - ENDOCRINE/METABOLIC Hx Endocrine Disorders: No - HEMATOLOGICAL/ONCOLOGICAL Hx Blood Disorders: No - INTEGUMENTARY Hx Dermatological Problems: No - MUSCULOSKELETAL/RHEUMATOLOGICAL Hx Arthritis: Yes Hx Falls: Yes - GASTROINTESTINAL Hx Gastrointestinal Disorders: No - GENITOURINARY/GYNECOLOGICAL Hx Genitourinary Disorders: No - PSYCHIATRIC Hx Anxiety: Yes Hx Bipolar Disorder: Yes Hx Depression: Yes Hx Substance Use: No - SURGICAL HISTORY Hx Surgeries: Yes Hx Section: Yes (x5) Hx Herniorrhaphy: Yes - ANESTHESIA Hx Anesthesia: Yes Hx Anesthesia Reactions: No Hx Malignant Hyperthermia: No Meds Allergies/Adverse Reactions: Allergies Allergy/AdvReac Type Severity Reaction Status Date / Time No Known Allergies Allergy Verified 04/25/17 19:55 - Medications Medications: Current Medications Albuterol/Ipratropium (Duoneb 3 Mg/0.5 Mg (3 Ml) Ud) 3 ml INH RQ4 PRN PRN Reason: wheezing Albuterol/Ipratropium (Duoneb 3 Mg/0.5 Mg (3 Ml) Ud) 3 ml IH RQ6 [facility] Last Admin: 04/26/17 13:25 Dose: 3 ml Amlodipine Besylate (Norvasc) 10 mg PO DAILY [facility] Last Admin: 04/26/17 10:47 Dose: 10 mg Azithromycin (Zithromax) 500 mg PO DAILY [facility] Last Admin: 04/26/17 10:47 Dose: 500 mg Clonidine HCl (Catapres) 0.1 mg PO TID [facility] Last Admin: 04/26/17 17:59 Dose: 0.1 mg Diphenhydramine HCl (Benadryl) 25 mg PO Q6 PRN PRN Reason: Itching / Pruritus Last Admin: 04/26/17 15:05 Dose: 25 mg Enoxaparin Sodium (Lovenox) 40 mg SC DAILY [facility] Last Admin: 04/26/17 10:47 Dose: 40 mg Furosemide (Lasix) 20 mg PO DAILY [facility] Last Admin: 04/26/17 10:47 Dose: 20 mg Ceftriaxone Sodium 1 gm/ (Dextrose) 100 mls @ 100 mls/hr IVPB DAILY [facility] Last Admin: 04/26/17 10:48 Dose: 100 mls/hr Loratadine (Claritin) 10 mg PO DAILY [facility] Losartan Potassium (Cozaar) 100 mg PO DAILY [facility] Last Admin: 04/26/17 10:46 Dose: 100 mg Methylprednisolone (Solu-Medrol) 40 mg IVP Q8H [facility] Last Admin: 04/26/17 14:12 Dose: 40 mg Montelukast Sodium (Singulair) 10 mg PO DAILY [facility] Last Admin: 04/26/17 10:46 Dose: 10 mg Pantoprazole Sodium (Protonix Ec Tab) 40 mg PO DAILY [facility] Last Admin: 04/26/17 10:46 Dose: 40 mg Fluticasone/Salmeterol (Advair Diskus 250/50) 1 puff INH RQ12 [facility] Last Admin: 04/26/17 10:04 Dose: Not Given Physical Exam - ENT Exam ENT Exam: Mucous Membranes Moist - Respiratory Exam Respiratory Exam: Rhonchi, Wheezes Results - Vital Signs Recent Vital Signs: Last Vital Signs Temp 100.8 F H 04/26/17 16:00 Pulse 102 H 04/26/17 16:00 Resp 20 04/26/17 16:00 BP 136/76 04/26/17 16:00 Pulse Ox 96 04/26/17 16:00 - Labs Result Diagrams: 04/25/17 21:06 04/25/17 20:40 Labs: Laboratory Results - last 24 hr 04/25/17 04/25/17 04/25/17 20:40 20:40 21:06 WBC 6.1 RBC 4.73 Hgb 13.3 Hct 40.3 MCV 85.3 MCH 28.1 MCHC 33.0 RDW 14.4 Plt Count 236 MPV 8.7 Neut % (Auto) 69.9 Lymph % (Auto) 22.1 [place] % (Auto) 5.4 Eos % (Auto) 2.0 Baso % (Auto) 0.6 Neut # 4.3 Lymph # 1.3 [place] # 0.3 Eos # 0.1 Baso # 0.0 PT INR APTT Sodium 141 Potassium 3.6 Chloride 102 Carbon Dioxide 31 H Anion Gap 12 BUN 10 Creatinine 0.6 L Est GFR ( Amer) > 60 Est GFR (Non-Af Amer) > 60 Random Glucose 122 H Calcium 8.6 Total Bilirubin 0.7 AST 22 ALT 43 Alkaline Phosphatase 54 Troponin I < 0.0120 NT-Pro-B Natriuret Pep 68.6 Total Protein 7.4 Albumin 4.1 Globulin 3.3 Albumin/Globulin Ratio 1.3 Urine Color Urine Clarity Urine pH Ur Specific [place] Urine Protein Urine Glucose (UA) Urine Ketones Urine Blood Urine Nitrate Urine Bilirubin Urine Urobilinogen Ur Leukocyte Esterase Urine WBC (Auto) Urine RBC (Auto) Urine WBC Clumps (Auto) Ur Squamous Epith Cells 04/25/17 04/26/17 21:06 12:38 WBC RBC Hgb Hct MCV MCH MCHC RDW Plt Count MPV Neut % (Auto) Lymph % (Auto) [place] % (Auto) Eos % (Auto) Baso % (Auto) Neut # Lymph # [place] # Eos # Baso # PT 12.2 INR 1.1 APTT 31 Sodium Potassium Chloride Carbon Dioxide Anion Gap BUN Creatinine Est GFR ( Amer) Est GFR (Non-Af Amer) Random Glucose Calcium Total Bilirubin AST ALT Alkaline Phosphatase Troponin I NT-Pro-B Natriuret Pep Total Protein Albumin Globulin Albumin/Globulin Ratio Urine Color Yellow Urine Clarity Turbid Urine pH 5.0 Ur Specific [place] 1.029 Urine Protein Negative Urine Glucose (UA) 1+ Urine Ketones Negative Urine Blood Negative Urine Nitrate Negative Urine Bilirubin Negative Urine Urobilinogen Normal Ur Leukocyte Esterase Neg Urine WBC (Auto) 17 H Urine RBC (Auto) 3 Urine WBC Clumps (Auto) Few H Ur Squamous Epith Cells 5 Assessment & Plan (1) COPD exacerbation Status: Acute Comment: continue nebulizer treatment, IV steroids, antibiotics. Sleep study as outpatient
--- NOTE | 2017-04-26 19:14 | CP.PCM.HP ---
Past Patient History - Infectious Disease Hx of Infectious Diseases: None - Past Medical History & Family History Past Medical History?: Yes - Past Social History Smoking Status: Unknown If Ever Smoked - CARDIAC Hx Cardiac Disorders: Yes Hx Hypertension: Yes Hx Peripheral Edema: Yes - PULMONARY Hx Respiratory Disorders: Yes Hx Asthma: Yes Hx Chronic Obstructive Pulmonary Disease (COPD): Yes Hx Pneumonia: Yes (2016) - NEUROLOGICAL Hx Neurological Disorder: No - HEENT Hx HEENT Problems: No - RENAL Hx Chronic Kidney Disease: No - ENDOCRINE/METABOLIC Hx Endocrine Disorders: No - HEMATOLOGICAL/ONCOLOGICAL Hx Blood Disorders: No - INTEGUMENTARY Hx Dermatological Problems: No - MUSCULOSKELETAL/RHEUMATOLOGICAL Hx Arthritis: Yes Hx Falls: Yes - GASTROINTESTINAL Hx Gastrointestinal Disorders: No - GENITOURINARY/GYNECOLOGICAL Hx Genitourinary Disorders: No - PSYCHIATRIC Hx Anxiety: Yes Hx Bipolar Disorder: Yes Hx Depression: Yes Hx Substance Use: No - SURGICAL HISTORY Hx Surgeries: Yes Hx Section: Yes (x5) Hx Herniorrhaphy: Yes - ANESTHESIA Hx Anesthesia: Yes Hx Anesthesia Reactions: No Hx Malignant Hyperthermia: No Meds Allergies/Adverse Reactions: Allergies Allergy/AdvReac Type Severity Reaction Status Date / Time No Known Allergies Allergy Verified 04/25/17 19:55 Physical Exam - Constitutional Appears: Well - Head Exam Head Exam: ATRAUMATIC, NORMAL INSPECTION, NORMOCEPHALIC - Eye Exam Eye Exam: EOMI, Normal appearance, PERRL Pupil Exam: NORMAL ACCOMODATION, PERRL - ENT Exam ENT Exam: Mucous Membranes Moist, Normal Exam - Neck Exam Neck exam: Positive for: Normal Inspection - Respiratory Exam Respiratory Exam: Decreased Breath Sounds - Cardiovascular Exam Cardiovascular Exam: REGULAR RHYTHM, +S1, +S2 - GI/Abdominal Exam GI & Abdominal Exam: Diminished Bowel Sounds, Soft - Rectal Exam Rectal Exam: Deferred Results - Vital Signs Recent Vital Signs: Last Vital Signs Temp 100.8 F H 04/26/17 16:00 Pulse 102 H 04/26/17 16:00 Resp 20 04/26/17 16:00 BP 136/76 04/26/17 16:00 Pulse Ox 96 04/26/17 16:00 - Labs Result Diagrams: 04/25/17 21:06 04/25/17 20:40 Labs: Laboratory Results - last 24 hr 04/25/17 04/25/17 04/25/17 20:40 20:40 21:06 WBC 6.1 RBC 4.73 Hgb 13.3 Hct 40.3 MCV 85.3 MCH 28.1 MCHC 33.0 RDW 14.4 Plt Count 236 MPV 8.7 Neut % (Auto) 69.9 Lymph % (Auto) 22.1 [place] % (Auto) 5.4 Eos % (Auto) 2.0 Baso % (Auto) 0.6 Neut # 4.3 Lymph # 1.3 [place] # 0.3 Eos # 0.1 Baso # 0.0 PT INR APTT Sodium 141 Potassium 3.6 Chloride 102 Carbon Dioxide 31 H Anion Gap 12 BUN 10 Creatinine 0.6 L Est GFR ( Amer) > 60 Est GFR (Non-Af Amer) > 60 Random Glucose 122 H Calcium 8.6 Total Bilirubin 0.7 AST 22 ALT 43 Alkaline Phosphatase 54 Troponin I < 0.0120 NT-Pro-B Natriuret Pep 68.6 Total Protein 7.4 Albumin 4.1 Globulin 3.3 Albumin/Globulin Ratio 1.3 Urine Color Urine Clarity Urine pH Ur Specific [place] Urine Protein Urine Glucose (UA) Urine Ketones Urine Blood Urine Nitrate Urine Bilirubin Urine Urobilinogen Ur Leukocyte Esterase Urine WBC (Auto) Urine RBC (Auto) Urine WBC Clumps (Auto) Ur Squamous Epith Cells 04/25/17 04/26/17 21:06 12:38 WBC RBC Hgb Hct MCV MCH MCHC RDW Plt Count MPV Neut % (Auto) Lymph % (Auto) [place] % (Auto) Eos % (Auto) Baso % (Auto) Neut # Lymph # [place] # Eos # Baso # PT 12.2 INR 1.1 APTT 31 Sodium Potassium Chloride Carbon Dioxide Anion Gap BUN Creatinine Est GFR ( Amer) Est GFR (Non-Af Amer) Random Glucose Calcium Total Bilirubin AST ALT Alkaline Phosphatase Troponin I NT-Pro-B Natriuret Pep Total Protein Albumin Globulin Albumin/Globulin Ratio Urine Color Yellow Urine Clarity Turbid Urine pH 5.0 Ur Specific [place] 1.029 Urine Protein Negative Urine Glucose (UA) 1+ Urine Ketones Negative Urine Blood Negative Urine Nitrate Negative Urine Bilirubin Negative Urine Urobilinogen Normal Ur Leukocyte Esterase Neg Urine WBC (Auto) 17 H Urine RBC (Auto) 3 Urine WBC Clumps (Auto) Few H Ur Squamous Epith Cells 5
[2017-04-27] MEDS: Albuterol-Ipratrop 3 mg / 0.5 (3 ml) UD IH SCH ×4 (01:54→19:41)
[2017-04-27] MEDS: MethylPREDNISolone 40 mg Vial IVP SCH ×3 (05:31→21:17)
[2017-04-27 08:37] LABS: BASO # 0.1 K/uL (0.0-0.2); BASO % 0.4 % (0.0-2.0); HEMATOCRIT 37.1 % (34.0-47.0); LYMPH # 0.7 K/uL (1.0-4.3); MEAN CELL VOLUME 85.8 fL (81.0-99.0); MEAN CORPUSCULAR HEMOGLOBIN 28.5 pg (27.0-31.0); MEAN CORPUSCULAR HGB CONC 33.2 g/dL (33.0-37.0); MEAN PLATELET VOLUME 9.2 fL (7.2-11.7); MONO # 0.3 K/uL (0.0-0.8); MONO % 1.8 % (0.0-10.0); PLATELET COUNT 228 K/uL (130-400); RED CELL DISTRIBUTION WIDTH 14.4 % (11.5-14.5)
[2017-04-27 08:56] LABS: ALB/GLOB RATIO 0.9 (1.0-2.1); ALKALINE PHOSPHATASE 54 U/L (38-126); ALT/SGPT 26 U/L (9-52); AST/SGOT 23 U/L (14-36); BILIRUBIN,DIRECT 0.3 mg/dL (0.0-0.4); BILIRUBIN,TOTAL 0.4 mg/dL (0.2-1.3); BLOOD UREA NITROGEN 19 mg/dL (7-17); CALCIUM 8.9 mg/dl (8.6-10.4); CARBON DIOXIDE 29 mmol/L (22-30); CHLORIDE 99 mmol/L (98-107); GFR AFRICAN-AMERICAN > 60; GLUCOSE,RANDOM 165 mg/dL (65-105); SODIUM 135 mmol/L (132-148); TOTAL PROTEIN 8.3 g/dL (6.3-8.3)
[2017-04-27] MEDS: Pantoprazole 40 mg EC Tab PO SCH (09:43)
[2017-04-27] MEDS: Enoxaparin 40 mg Syringe SC SCH (09:44)
[2017-04-27] MEDS: Fluticasone-Salmeterol 250-50mcg Diskus INH SCH (10:02)
[2017-04-27 10:06] LABS: NEUTROPHIL 84 % (50-75); TOTAL CELLS COUNTED 100
[2017-04-27 11:18] LABS: ERYTHROCYTE SEDIMENTATION RATE 41 mm/hr (0-20)
[2017-04-27] MEDS: Promethazine DM 6.25 mg-15 mg/5 ml Syrup PO PRN (12:14)
--- NOTE | 2017-04-27 15:00 | CP.PCM.PN ---
Subjective - Date & Time of Evaluation Date of Evaluation: 04/27/17 Time of Evaluation: 09:00 - Subjective Subjective: Medical progress note for Dr. Ortiz, Patient was seen and examined at bedside. The patient stated her breathing has improved since yesterday but she is still wheezing and having fevers. She states that she is comfortable at rest but when she sits at the side of the bed she feels short of breath. She was still complaining of a productive cough that was causing some rib pain. Patient denied chest pain, changes in vision, headaches, abd pain, N/V, diarrhea, or numbness or tingling. Objective - Vital Signs/Intake and Output Vital Signs (last 24 hours): Temp Pulse Resp BP Pulse Ox 100.1 F H 94 H 20 184/74 H 97 04/27/17 08:00 04/27/17 08:00 04/27/17 08:00 04/27/17 09:44 04/27/17 08:00 Intake and Output: 04/27/17 04/27/17 06:59 18:59 Intake Total 340 Balance 340 - Medications Medications: Current Medications Acetaminophen (Tylenol 325mg Tab) 650 mg PO Q6 PRN PRN Reason: Fever >100.4 F Albuterol/Ipratropium (Duoneb 3 Mg/0.5 Mg (3 Ml) Ud) 3 ml IH RQ6 [facility] Last Admin: 04/27/17 13:37 Dose: 3 ml Amlodipine Besylate (Norvasc) 10 mg PO DAILY [facility] Last Admin: 04/27/17 09:44 Dose: 10 mg Azithromycin (Zithromax) 500 mg PO DAILY [facility] Last Admin: 04/27/17 09:45 Dose: 500 mg Clonidine HCl (Catapres) 0.1 mg PO TID [facility] Last Admin: 04/27/17 13:55 Dose: 0.1 mg Diphenhydramine HCl (Benadryl) 25 mg PO Q6 PRN PRN Reason: Itching / Pruritus Last Admin: 04/27/17 12:13 Dose: 25 mg Enoxaparin Sodium (Lovenox) 40 mg SC DAILY [facility] Last Admin: 04/27/17 09:44 Dose: 40 mg Furosemide (Lasix) 20 mg PO DAILY [facility] Last Admin: 04/27/17 09:44 Dose: 20 mg Ceftriaxone Sodium 1 gm/ (Dextrose) 100 mls @ 100 mls/hr IVPB Q12H [facility] Last Admin: 04/27/17 12:14 Dose: 100 mls/hr Loratadine (Claritin) 10 mg PO DAILY [facility] Last Admin: 04/27/17 09:44 Dose: 10 mg Losartan Potassium (Cozaar) 100 mg PO DAILY [facility] Last Admin: 04/27/17 09:44 Dose: 100 mg Methylprednisolone (Solu-Medrol) 40 mg IVP Q8H [facility] Last Admin: 04/27/17 13:54 Dose: 40 mg Montelukast Sodium (Singulair) 10 mg PO DAILY [facility] Last Admin: 04/27/17 09:43 Dose: 10 mg Pantoprazole Sodium (Protonix Ec Tab) 40 mg PO DAILY [facility] Last Admin: 04/27/17 09:43 Dose: 40 mg Promethazine HCl/Dextromethorphan (Phenergan Dm Syrup) 5 ml PO Q6H PRN PRN Reason: Cough Last Admin: 04/27/17 12:14 Dose: 5 ml Fluticasone/Salmeterol (Advair Diskus 250/50) 1 puff INH RQ12 [facility] Last Admin: 04/27/17 10:02 Dose: Not Given - Labs Labs: 04/27/17 08:16 04/27/17 08:16 PT 12.2 SECONDS (9.7-12.2) 04/25/17 21:06 INR 1.1 04/25/17 21:06 APTT 31 SECONDS (21-34) 04/25/17 21:06 - Constitutional Appears: Non-toxic, No Acute Distress, Other (speaking in full sentences) - Head Exam Head Exam: ATRAUMATIC, NORMAL INSPECTION - Eye Exam Eye Exam: EOMI - ENT Exam ENT Exam: Mucous Membranes Moist - Respiratory Exam Respiratory Exam: Wheezes, NORMAL BREATHING PATTERN. absent: Accessory Muscle Use, Respiratory Distress - Cardiovascular Exam Cardiovascular Exam: REGULAR RHYTHM, +S1, +S2 - GI/Abdominal Exam GI & Abdominal Exam: Soft, Normal Bowel Sounds. absent: Distended, Firm, Guarding, Tenderness Additional comments: obese - Extremities Exam Extremities Exam: Normal Inspection - Back Exam Back Exam: NORMAL INSPECTION - Neurological Exam Neurological Exam: Alert, Awake, Oriented x3 - Psychiatric Exam Psychiatric exam: Normal Affect, Normal Mood - Skin Skin Exam: Dry, Intact, Normal Color, Warm Assessment and Plan - Assessment and Plan (Free Text) Assessment: COPD/asthma exacerbation Patient is still wheezing, improving, able to speak in full sentences Duonebs RQ6 Claritin 10mg PO daily SoluMedrol 40mg IVP [id number] Singulair 10mg PO daily [address] Alva consulted, help appreciated - patient will need sleep study outpatient to evaluate for sleep apnea Chest X ray on 04/25 showed a limited stuyd - f/u repeat chest X ray f/u am labs Pneumonia Tylenol prn fevers, Zithromax 500mg PO daily Ceftriaxone 1gram IVPB Q12 hours WBC eleavted [address] Marie consultes help apprecited ESR/CRP elevated Patient was febrile this am Influenza normal legionella, mycoplasma negative Leg Edema Lasix 20mg PO daily Hypertension Norvasc 10mg PO daily Clonidine 0.1 mg PO TID Cozaar 100mg PO daily Prophylactic Measures Benadryl prn pruritus Protonix 40mg PO daily Lovenox 40mg SC daily All management per Dr. Philly Ortiz.
--- NOTE | 2017-04-27 15:52 | CP.PCM.PN ---
Subjective - Date & Time of Evaluation Date of Evaluation: 04/27/17 Time of Evaluation: 15:52 - Subjective Subjective: Patient seen and examined Chart reviewed Reports slightly improved dyspnea Objective - Vital Signs/Intake and Output Vital Signs (last 24 hours): Temp Pulse Resp BP Pulse Ox 100.1 F H 94 H 20 184/74 H 97 04/27/17 08:00 04/27/17 08:00 04/27/17 08:00 04/27/17 09:44 04/27/17 08:00 Intake and Output: 04/27/17 04/27/17 06:59 18:59 Intake Total 940 Balance 940 - Medications Medications: Current Medications Acetaminophen (Tylenol 325mg Tab) 650 mg PO Q6 PRN PRN Reason: Fever >100.4 F Albuterol/Ipratropium (Duoneb 3 Mg/0.5 Mg (3 Ml) Ud) 3 ml IH RQ6 [facility] Last Admin: 04/27/17 13:37 Dose: 3 ml Amlodipine Besylate (Norvasc) 10 mg PO DAILY [facility] Last Admin: 04/27/17 09:44 Dose: 10 mg Azithromycin (Zithromax) 500 mg PO DAILY [facility] Last Admin: 04/27/17 09:45 Dose: 500 mg Clonidine HCl (Catapres) 0.1 mg PO TID [facility] Last Admin: 04/27/17 13:55 Dose: 0.1 mg Diphenhydramine HCl (Benadryl) 25 mg PO Q6 PRN PRN Reason: Itching / Pruritus Last Admin: 04/27/17 12:13 Dose: 25 mg Enoxaparin Sodium (Lovenox) 40 mg SC DAILY [facility] Last Admin: 04/27/17 09:44 Dose: 40 mg Furosemide (Lasix) 20 mg PO DAILY [facility] Last Admin: 04/27/17 09:44 Dose: 20 mg Ceftriaxone Sodium 1 gm/ (Dextrose) 100 mls @ 100 mls/hr IVPB Q12H [facility] Last Admin: 04/27/17 12:14 Dose: 100 mls/hr Loratadine (Claritin) 10 mg PO DAILY [facility] Last Admin: 04/27/17 09:44 Dose: 10 mg Losartan Potassium (Cozaar) 100 mg PO DAILY [facility] Last Admin: 04/27/17 09:44 Dose: 100 mg Methylprednisolone (Solu-Medrol) 40 mg IVP Q8H [facility] Last Admin: 04/27/17 13:54 Dose: 40 mg Montelukast Sodium (Singulair) 10 mg PO DAILY [facility] Last Admin: 04/27/17 09:43 Dose: 10 mg Pantoprazole Sodium (Protonix Ec Tab) 40 mg PO DAILY [facility] Last Admin: 04/27/17 09:43 Dose: 40 mg Promethazine HCl/Dextromethorphan (Phenergan Dm Syrup) 5 ml PO Q6H PRN PRN Reason: Cough Last Admin: 04/27/17 12:14 Dose: 5 ml Fluticasone/Salmeterol (Advair Diskus 250/50) 1 puff INH RQ12 [facility] Last Admin: 04/27/17 10:02 Dose: Not Given - Labs Labs: 04/27/17 08:16 04/27/17 08:16 PT 12.2 SECONDS (9.7-12.2) 04/25/17 21:06 INR 1.1 04/25/17 21:06 APTT 31 SECONDS (21-34) 04/25/17 21:06 - Head Exam Head Exam: NORMAL INSPECTION - Eye Exam Eye Exam: Normal appearance - ENT Exam ENT Exam: Mucous Membranes Moist - Respiratory Exam Respiratory Exam: Decreased Breath Sounds, Wheezes - Cardiovascular Exam Cardiovascular Exam: REGULAR RHYTHM, +S1, +S2 - GI/Abdominal Exam GI & Abdominal Exam: Soft, Normal Bowel Sounds - Neurological Exam Neurological Exam: Alert, Oriented x3 - Psychiatric Exam Psychiatric exam: Normal Affect, Normal Mood Assessment and Plan (1) Acute asthma exacerbation Status: Acute - Assessment and Plan (Free Text) Plan: Bronchodilators IV steroids Advair 250/50 micrograms 1 puff twice a day Continue antibiotics Lasix 20 mg daily Phenergan DM as needed Singular 10 mg nightly
--- NOTE | 2017-04-27 20:12 | CP.PCM.PN ---
Subjective - Date & Time of Evaluation Date of Evaluation: 04/27/17 Time of Evaluation: 08:40 - Subjective Subjective: clinically same Objective - Vital Signs/Intake and Output Vital Signs (last 24 hours): Temp Pulse Resp BP Pulse Ox 98 F 81 20 142/83 97 04/27/17 16:00 04/27/17 16:00 04/27/17 16:00 04/27/17 16:00 04/27/17 16:00 Intake and Output: 04/27/17 04/28/17 18:59 06:59 Intake Total 940 Balance 940 - Medications Medications: Current Medications Acetaminophen (Tylenol 325mg Tab) 650 mg PO Q6 PRN PRN Reason: Fever >100.4 F Albuterol/Ipratropium (Duoneb 3 Mg/0.5 Mg (3 Ml) Ud) 3 ml IH RQ6 [facility]S AT [facility] Last Admin: 04/27/17 19:41 Dose: 3 ml Amlodipine Besylate (Norvasc) 10 mg PO DAILY [facility] 234 [facility]S AT [facility] Last Admin: 04/27/17 09:44 Dose: 10 mg Azithromycin (Zithromax) 500 mg PO DAILY [facility] 234 [facility]S AT [facility] Last Admin: 04/27/17 09:45 Dose: 500 mg Clonidine HCl (Catapres) 0.1 mg PO TID [facility] 234 [facility]EDS AT [facility] Last Admin: 04/27/17 17:26 Dose: 0.1 mg Diphenhydramine HCl (Benadryl) 25 mg PO Q6 PRN PRN Reason: Itching / Pruritus Last Admin: 04/27/17 12:13 Dose: 25 mg Enoxaparin Sodium (Lovenox) 40 mg SC DAILY [facility] 234 BEDS AT [facility] Last Admin: 04/27/17 09:44 Dose: 40 mg Furosemide (Lasix) 20 mg PO DAILY [facility] 234 B[facility]S AT [facility] Last Admin: 04/27/17 09:44 Dose: 20 mg Ceftriaxone Sodium 1 gm/ (Dextrose) 100 mls @ 100 mls/hr IVPB Q12H [facility]CLUDE 234 BEDS AT [facility] Last Admin: 04/27/17 12:14 Dose: 100 mls/hr Loratadine (Claritin) 10 mg PO DAILY [facility] 234 BEDS AT [facility] Last Admin: 04/27/17 09:44 Dose: 10 mg Losartan Potassium (Cozaar) 100 mg PO DAILY [facility] 234 B[facility]S AT [facility] Last Admin: 04/27/17 09:44 Dose: 100 mg Methylprednisolone (Solu-Medrol) 40 mg IVP Q8H [facility]CLUDE 234 BEDS AT [facility] Last Admin: 04/27/17 13:54 Dose: 40 mg Montelukast Sodium (Singulair) 10 mg PO DAILY [facility] 234 BEDS AT [facility] Last Admin: 04/27/17 09:43 Dose: 10 mg Pantoprazole Sodium (Protonix Ec Tab) 40 mg PO DAILY [facility] 234 BEDS AT [facility] Last Admin: 04/27/17 09:43 Dose: 40 mg Promethazine HCl/Dextromethorphan (Phenergan Dm Syrup) 5 ml PO Q6H PRN PRN Reason: Cough Last Admin: 04/27/17 12:14 Dose: 5 ml Fluticasone/Salmeterol (Advair Diskus 250/50) 1 puff INH RQ12 [facility]CLUDE 234 BEDS AT [facility] Last Admin: 04/27/17 10:02 Dose: Not Given - Labs Labs: 04/27/17 08:16 04/27/17 08:16 PT 12.2 SECONDS (9.7-12.2) 04/25/17 21:06 INR 1.1 04/25/17 21:06 APTT 31 SECONDS (21-34) 04/25/17 21:06 - Constitutional Appears: Well - Head Exam Head Exam: ATRAUMATIC, NORMAL INSPECTION, NORMOCEPHALIC - Eye Exam Eye Exam: EOMI, Normal appearance, PERRL Pupil Exam: NORMAL ACCOMODATION, PERRL - ENT Exam ENT Exam: Mucous Membranes Moist, Normal Exam - Neck Exam Neck Exam: Full ROM, Normal Inspection. absent: Lymphadenopathy - Respiratory Exam Respiratory Exam: Decreased Breath Sounds - Cardiovascular Exam Cardiovascular Exam: REGULAR RHYTHM, +S1, +S2 - GI/Abdominal Exam GI & Abdominal Exam: Soft, Diminished Bowel Sounds - Rectal Exam Rectal Exam: Deferred
--- NOTE | 2017-04-27 20:52 | CP.PCM.CON ---
History of Present Illness - History of Present Illness History of Present Illness: INFECTIOUS DISEASE CONSULT; HPI; 51-year-old female ,MODERATELY OBESE [address] POUND with history of COPD/asthma presented to emergency room on 04/25/17 complaining of shortness of breath for the past 2 days Also complaining of cough productive of yellowish phlegm and has been using inhalers without any improvement.patient was started on IVs Rocephin 1 g once a day daily and Zithromax 500 mg once a day daily. Chest x-ray on admission showed right atelectasis and right pleural parenchymal pathology with a small right pleural effusion suspicious for pneumonia. Patient was therefore advised patient for exacerbation of asthma and dyspnea. Infectious disease consultation requested by PMD-DR REYES. Allergies: NKDA PMHx: COPD, Asthma, HTN, angina, anxiety, bipolar PSHx: 5 c-sections and 1 hernia repair SocialHx: Denies smoking but says multiple family members smoke around her. Denies alcohol and illicit drug use Review of Systems - Constitutional Constitutional: Fever. absent: Headache - EENT Eyes: absent: Change in Vision Nose/Mouth/Throat: absent: Nasal Congestion, Mouth Lesions, Sore Throat - Cardiovascular Cardiovascular: Dyspnea. absent: Chest Pain, Palpitations - Respiratory Respiratory: Cough, Dyspnea, Chest Congestion, Change in Mucous Color - Gastrointestinal Gastrointestinal: absent: Abdominal Pain, Diarrhea, Dysphagia, Nausea, Vomiting - Genitourinary Genitourinary: Pyuria. absent: Dysuria, Hematuria - Musculoskeletal Musculoskeletal: As Per HPI - Neurological Neurological: absent: Dizziness, Headaches - Hematologic/Lymphatic Hematologic: As Per HPI. absent: Lymphadenopathy Past Patient History - Infectious Disease Hx of Infectious Diseases: None - Past Medical History & Family History Past Medical History?: Yes - Past Social History Smoking Status: Unknown If Ever Smoked - CARDIAC Hx Cardiac Disorders: Yes Hx Hypertension: Yes Hx Peripheral Edema: Yes - PULMONARY Hx Respiratory Disorders: Yes Hx Asthma: Yes Hx Chronic Obstructive Pulmonary Disease (COPD): Yes Hx Pneumonia: Yes (2016) - NEUROLOGICAL Hx Neurological Disorder: No - HEENT Hx HEENT Problems: No - RENAL Hx Chronic Kidney Disease: No - ENDOCRINE/METABOLIC Hx Endocrine Disorders: No - HEMATOLOGICAL/ONCOLOGICAL Hx Blood Disorders: No - INTEGUMENTARY Hx Dermatological Problems: No - MUSCULOSKELETAL/RHEUMATOLOGICAL Hx Arthritis: Yes Hx Falls: Yes - GASTROINTESTINAL Hx Gastrointestinal Disorders: No - GENITOURINARY/GYNECOLOGICAL Hx Genitourinary Disorders: No - PSYCHIATRIC Hx Anxiety: Yes Hx Bipolar Disorder: Yes Hx Depression: Yes Hx Substance Use: No - SURGICAL HISTORY Hx Surgeries: Yes Hx Section: Yes (x5) Hx Herniorrhaphy: Yes - ANESTHESIA Hx Anesthesia: Yes Hx Anesthesia Reactions: No Hx Malignant Hyperthermia: No Meds Allergies/Adverse Reactions: Allergies Allergy/AdvReac Type Severity Reaction Status Date / Time No Known Allergies Allergy Verified 04/25/17 19:55 - Medications Medications: Current Medications Acetaminophen (Tylenol 325mg Tab) 650 mg PO Q6 PRN PRN Reason: Fever >100.4 F Albuterol/Ipratropium (Duoneb 3 Mg/0.5 Mg (3 Ml) Ud) 3 ml IH RQ6 [facility] Last Admin: 04/27/17 19:41 Dose: 3 ml Amlodipine Besylate (Norvasc) 10 mg PO DAILY [facility] Last Admin: 04/27/17 09:44 Dose: 10 mg Azithromycin (Zithromax) 500 mg PO DAILY [facility] Last Admin: 04/27/17 09:45 Dose: 500 mg Clonidine HCl (Catapres) 0.1 mg PO TID [facility] Last Admin: 04/27/17 17:26 Dose: 0.1 mg Diphenhydramine HCl (Benadryl) 25 mg PO Q6 PRN PRN Reason: Itching / Pruritus Last Admin: 04/27/17 12:13 Dose: 25 mg Enoxaparin Sodium (Lovenox) 40 mg SC DAILY [facility] Last Admin: 04/27/17 09:44 Dose: 40 mg Furosemide (Lasix) 20 mg PO DAILY [facility] Last Admin: 04/27/17 09:44 Dose: 20 mg Ceftriaxone Sodium 1 gm/ (Dextrose) 100 mls @ 100 mls/hr IVPB Q12H [facility] Last Admin: 04/27/17 12:14 Dose: 100 mls/hr Loratadine (Claritin) 10 mg PO DAILY [facility] Last Admin: 04/27/17 09:44 Dose: 10 mg Losartan Potassium (Cozaar) 100 mg PO DAILY [facility] Last Admin: 04/27/17 09:44 Dose: 100 mg Methylprednisolone (Solu-Medrol) 40 mg IVP Q8H [facility] Last Admin: 04/27/17 13:54 Dose: 40 mg Montelukast Sodium (Singulair) 10 mg PO DAILY [facility] Last Admin: 04/27/17 09:43 Dose: 10 mg Pantoprazole Sodium (Protonix Ec Tab) 40 mg PO DAILY [facility] Last Admin: 04/27/17 09:43 Dose: 40 mg Promethazine HCl/Dextromethorphan (Phenergan Dm Syrup) 5 ml PO Q6H PRN PRN Reason: Cough Last Admin: 04/27/17 12:14 Dose: 5 ml Fluticasone/Salmeterol (Advair Diskus 250/50) 1 puff INH RQ12 [facility] Last Admin: 04/27/17 10:02 Dose: Not Given Physical Exam - Constitutional Appears: No Acute Distress - Head Exam Head Exam: NORMAL INSPECTION - ENT Exam ENT Exam: Normal Oropharynx - Neck Exam Neck exam: Positive for: Normal Inspection - Respiratory Exam Respiratory Exam: Prolonged Expiratory Phase, Wheezes - Cardiovascular Exam Cardiovascular Exam: Tachycardia, REGULAR RHYTHM, +S1, +S2 - GI/Abdominal Exam GI & Abdominal Exam: Normal Bowel Sounds, Soft - Extremities Exam Extremities exam: Positive for: normal capillary refill, pedal edema (1+), pedal pulses present. Negative for: calf tenderness - Neurological Exam Neurological exam: Alert, CN II-XII Intact, Oriented x3, Reflexes Normal - Psychiatric Exam Psychiatric exam: Normal Mood - Skin Skin Exam: Normal Color, Warm Results - Vital Signs Recent Vital Signs: Last Vital Signs Temp 98 F 04/27/17 16:00 Pulse 81 04/27/17 16:00 Resp 20 04/27/17 16:00 BP 142/83 04/27/17 16:00 Pulse Ox 97 04/27/17 16:00 - Labs Result Diagrams: 04/27/17 08:16 04/27/17 08:16 Labs: Laboratory Results - last 24 hr 04/26/17 04/26/17 04/27/17 18:43 23:15 08:16 WBC 14.0 H D RBC 4.33 Hgb 12.3 Hct 37.1 MCV 85.8 MCH 28.5 MCHC 33.2 RDW 14.4 Plt Count 228 MPV 9.2 Neut % (Auto) 92.8 H Lymph % (Auto) 5.0 L [place] % (Auto) 1.8 Eos % (Auto) 0.0 Baso % (Auto) 0.4 Neut # 13.0 H Lymph # 0.7 L [place] # 0.3 Eos # 0.0 Baso # 0.1 Neutrophils % (Manual) 84 H Band Neutrophils % 5 H Lymphocytes % (Manual) 6 L Monocytes % (Manual) 5 Platelet Estimate Normal RBC Morphology Normal ESR 41 H Sodium Potassium Chloride Carbon Dioxide Anion Gap BUN Creatinine Est GFR ( Amer) Est GFR (Non-Af Amer) Random Glucose Calcium Total Bilirubin Direct Bilirubin AST ALT Alkaline Phosphatase C-React Prot High Sens Total Protein Albumin Globulin Albumin/Globulin Ratio Influenza Typ A,B (EIA) Negative for flu a/b Ur L.pneumophila Ag Negative Mycoplasma pneumon IgM 04/27/17 04/27/17 04/27/17 08:16 08:16 08:16 WBC RBC Hgb Hct MCV MCH MCHC RDW Plt Count MPV Neut % (Auto) Lymph % (Auto) B[place] % (Auto) Eos % (Auto) Baso % (Auto) Neut # Lymph # [place] # Eos # Baso # Neutrophils % (Manual) Band Neutrophils % Lymphocytes % (Manual) Monocytes % (Manual) Platelet Estimate RBC Morphology ESR Sodium 135 Potassium 5.0 Chloride 99 Carbon Dioxide 29 Anion Gap 12 BUN 19 H Creatinine 0.7 Est GFR ( Amer) > 60 Est GFR (Non-Af Amer) > 60 Random Glucose 165 H Calcium 8.9 Total Bilirubin 0.4 Direct Bilirubin 0.3 AST 23 ALT 26 Alkaline Phosphatase 54 C-React Prot High Sens > 15.00 H Total Protein 8.3 Albumin 4.0 Globulin 4.3 H Albumin/Globulin Ratio 0.9 L Influenza Typ A,B (EIA) Ur L.pneumophila Ag Mycoplasma pneumon IgM Negative - Imaging and Cardiology Chest x-ray Status: Report reviewed by me (see full report.) Assessment & Plan (1) Asthma exacerbation Assessment and Plan: pancultures Sputum Gram stain and culture. esr, crp. Influenza A and B rapid antigen test. Influenza A and B antibody. Increase IV Rocephin to 1 g every 12 hourly 04/26/17 Continue Zithromax 500 mg IV OD daily 04/26/17. Status: Acute (2) Dyspnea Assessment and Plan: pulmonary on the case. IV steroids as per pulmonary. pulmonary toilet Status: Acute (3) HTN (hypertension) Status: Acute (4) Morbid obesity Assessment and Plan: encouraged to lose weight. Patient to see dietitian for calorie count and diet instructions. Status: Acute
[2017-04-28] MEDS: Albuterol-Ipratrop 3 mg / 0.5 (3 ml) UD IH SCH ×5 (01:32→19:27)
[2017-04-28] MEDS: MethylPREDNISolone 40 mg Vial IVP SCH ×3 (05:37→21:00)
[2017-04-28] MEDS: Fluticasone-Salmeterol 250-50mcg Diskus INH SCH ×2 (07:17→19:26)
[2017-04-28 08:04] LABS: BASO % 0.1 % (0.0-2.0); HEMATOCRIT 36.6 % (34.0-47.0); LYMPH # 0.8 K/uL (1.0-4.3); LYMPH % 7.3 % (20.0-40.0); MEAN CELL VOLUME 85.1 fL (81.0-99.0); MEAN CORPUSCULAR HEMOGLOBIN 28.8 pg (27.0-31.0); MEAN CORPUSCULAR HGB CONC 33.8 g/dL (33.0-37.0); MEAN PLATELET VOLUME 9.1 fL (7.2-11.7); MONO # 0.3 K/uL (0.0-0.8); MONO % 2.9 % (0.0-10.0); PLATELET COUNT 236 K/uL (130-400); RED CELL DISTRIBUTION WIDTH 14.5 % (11.5-14.5); WHITE BLOOD COUNT 10.5 K/uL (4.8-10.8)
[2017-04-28 08:33] LABS: ALB/GLOB RATIO 0.9 (1.0-2.1); ALKALINE PHOSPHATASE 51 U/L (38-126); ALT/SGPT 30 U/L (9-52); AST/SGOT 21 U/L (14-36); BILIRUBIN,TOTAL 0.4 mg/dL (0.2-1.3); BLOOD UREA NITROGEN 17 mg/dL (7-17); CALCIUM 8.8 mg/dl (8.6-10.4); CARBON DIOXIDE 32 mmol/L (22-30); CHLORIDE 98 mmol/L (98-107); GFR AFRICAN-AMERICAN > 60; GLUCOSE,RANDOM 162 mg/dL (65-105); MAGNESIUM 2.1 mg/dL (1.6-2.3); PHOSPHOROUS 3.2 mg/dL (2.5-4.5); POTASSIUM 4.7 mmol/L (3.6-5.2); SODIUM 134 mmol/L (132-148); TOTAL PROTEIN 7.7 g/dL (6.3-8.3)
[2017-04-28 09:21] LABS: NEUTROPHIL 88 % (50-75); TOTAL CELLS COUNTED 100
--- NOTE | 2017-04-28 09:22 | RAD ---
HISTORY: COMPARISON: 04/25/2017 TECHNIQUE: Chest PA and lateral FINDINGS: LINES AND TUBES: None. LUNG AND PLEURA: The lungs are hyperinflated and there is peribronchial thickening with chronic changes in both lungs. There is confluent airspace disease in the right lower lobe. HEART AND MEDIASTINUM: The heart is not enlarged. The hilar and mediastinal contours are within normal limits. SKELETAL STRUCTURES: The bony structures are within normal limits for the patient's age. VISUALIZED UPPER ABDOMEN: Normal. OTHER FINDINGS: None. IMPRESSION: Confluent airspace disease in the right lower lobe could represent subsegmental atelectasis or pneumonia. Follow-up to resolution is advised. COPD.
[2017-04-28] MEDS: Enoxaparin 40 mg Syringe SC SCH (09:29)
[2017-04-28] MEDS: Pantoprazole 40 mg EC Tab PO SCH (09:29)
[2017-04-28] MEDS: Promethazine DM 6.25 mg-15 mg/5 ml Syrup PO PRN (09:30)
[2017-04-28 09:38] LABS: ERYTHROCYTE SEDIMENTATION RATE 30 mm/hr (0-20)
[2017-04-28] MEDS ORDERED: Pneumococcal 23-Valent Vaccine IM ONE (10:00)
[2017-04-28] MEDS ORDERED: Influenza Vaccine 60 mcg/0.5 mL SYR (4YR UP) IM ONE (10:00)
--- NOTE | 2017-04-28 13:31 | CP.PCM.PN ---
Subjective - Date & Time of Evaluation Date of Evaluation: 04/28/17 Time of Evaluation: 13:28 - Subjective Subjective: Progress note for Dr. Ortiz's Service Patient was seen and examined at bedside.She reports improvement in her breathing. She is still wheezing but does not feel feverish or have chills. She is comfortable at rest but when ambulating she becomes short of breath. She was still complaining right sided rib pain from coughing. Patient denied F/C/N/V/CP/ ABD PAIN/D/C. Objective - Vital Signs/Intake and Output Vital Signs (last 24 hours): Temp Pulse Resp BP Pulse Ox 98.2 F 73 20 143/88 97 04/27/17 23:47 04/28/17 10:48 04/28/17 10:48 04/28/17 10:48 04/28/17 10:48 Intake and Output: 04/28/17 04/28/17 06:59 18:59 Intake Total 500 Balance 500 - Medications Medications: Current Medications Acetaminophen (Tylenol 325mg Tab) 650 mg PO Q6 PRN PRN Reason: Fever >100.4 F Albuterol/Ipratropium (Duoneb 3 Mg/0.5 Mg (3 Ml) Ud) 3 ml IH RQ6 [facility] Last Admin: 04/28/17 07:17 Dose: Not Given Amlodipine Besylate (Norvasc) 10 mg PO DAILY [facility] Last Admin: 04/28/17 09:29 Dose: 10 mg Azithromycin (Zithromax) 500 mg PO DAILY [facility] Last Admin: 04/28/17 09:29 Dose: 500 mg Clonidine HCl (Catapres) 0.1 mg PO TID [facility] Last Admin: 04/28/17 09:29 Dose: 0.1 mg Diphenhydramine HCl (Benadryl) 25 mg PO Q6 PRN PRN Reason: Itching / Pruritus Last Admin: 04/28/17 09:30 Dose: 25 mg Enoxaparin Sodium (Lovenox) 40 mg SC DAILY [facility] Last Admin: 04/28/17 09:29 Dose: 40 mg Furosemide (Lasix) 20 mg PO DAILY [facility] Last Admin: 04/28/17 09:29 Dose: 20 mg Ceftriaxone Sodium 1 gm/ (Sodium Chloride) 100 mls @ 100 mls/hr IVPB Q12H [facility] Last Admin: 04/28/17 13:00 Dose: 100 mls/hr Loratadine (Claritin) 10 mg PO DAILY [facility] Last Admin: 04/28/17 09:34 Dose: Not Given Losartan Potassium (Cozaar) 100 mg PO DAILY [facility] Last Admin: 04/28/17 09:29 Dose: 100 mg Methylprednisolone (Solu-Medrol) 40 mg IVP Q8H [facility] Last Admin: 04/28/17 05:37 Dose: 40 mg Montelukast Sodium (Singulair) 10 mg PO DAILY [facility] Last Admin: 04/28/17 09:29 Dose: 10 mg Pantoprazole Sodium (Protonix Ec Tab) 40 mg PO DAILY [facility] Last Admin: 04/28/17 09:29 Dose: 40 mg Promethazine HCl/Dextromethorphan (Phenergan Dm Syrup) 5 ml PO Q6H PRN PRN Reason: Cough Last Admin: 04/28/17 09:30 Dose: 5 ml Fluticasone/Salmeterol (Advair Diskus 250/50) 1 puff INH RQ12 [facility] Last Admin: 04/28/17 07:17 Dose: Not Given - Labs Labs: 04/28/17 07:53 04/28/17 07:53 PT 12.2 SECONDS (9.7-12.2) 04/25/17 21:06 INR 1.1 04/25/17 21:06 APTT 31 SECONDS (21-34) 04/25/17 21:06 - Constitutional Appears: No Acute Distress - Head Exam Head Exam: ATRAUMATIC, NORMAL INSPECTION - Eye Exam Eye Exam: EOMI - ENT Exam ENT Exam: Mucous Membranes Moist - Respiratory Exam Respiratory Exam: Wheezes (MILD), NORMAL BREATHING PATTERN. absent: Rhonchi, Respiratory Distress, Stridor - Cardiovascular Exam Cardiovascular Exam: REGULAR RHYTHM, +S1, +S2 - GI/Abdominal Exam GI & Abdominal Exam: Soft. absent: Tenderness - Neurological Exam Neurological Exam: Alert, Awake, Oriented x3 - Psychiatric Exam Psychiatric exam: Normal Affect, Normal Mood - Skin Skin Exam: Dry, Intact Assessment and Plan - Assessment and Plan (Free Text) Plan: COPD/asthma exacerbation Patient is still wheezing, improving, able to speak in full sentences Duonebs RQ6 Claritin 10mg PO daily SoluMedrol 40mg IVP [id number] Singulair 10mg PO daily [address] Alva consulted, help appreciated - patient will need sleep study outpatient to evaluate for sleep apnea Chest X ray on 04/25 showed a limited stuyd - f/u repeat chest X ray f/u am labs Pneumonia Tylenol prn fevers, Zithromax 500mg PO daily Ceftriaxone 1gram IVPB Q12 hours Phenegran DM WBC now WNL Dr. Marie consulted- recs appreciated ESR/CRP elevated but improved Follow up sputum gram stain Patient was afebrile for >24hrs Influenza negative legionella, mycoplasma negative Leg Edema Lasix 20mg PO daily Hypertension- Controlled Norvasc 10mg PO daily Clonidine 0.1 mg PO TID Cozaar 100mg PO daily Morbid Obesity Encouraged to lose weight Prophylactic Measures Benadryl prn pruritus Protonix 40mg PO daily Lovenox 40mg SC daily This patient will need a sleep study once she is discharged. Case Discussed with Dr. Ortiz. All management per Dr. Philly Ortiz.
--- NOTE | 2017-04-28 16:45 | CP.PCM.PN ---
Subjective - Date & Time of Evaluation Date of Evaluation: 04/28/17 Time of Evaluation: 08:00 - Subjective Subjective: clinically same Objective - Vital Signs/Intake and Output Vital Signs (last 24 hours): Temp Pulse Resp BP Pulse Ox 98.3 F 76 20 133/84 98 04/28/17 16:00 04/28/17 16:00 04/28/17 16:00 04/28/17 16:00 04/28/17 16:00 Intake and Output: 04/28/17 04/28/17 06:59 18:59 Intake Total 1100 Balance 1100 - Medications Medications: Current Medications Acetaminophen (Tylenol 325mg Tab) 650 mg PO Q6 PRN PRN Reason: Fever >100.4 F Albuterol/Ipratropium (Duoneb 3 Mg/0.5 Mg (3 Ml) Ud) 3 ml IH RQ6 [facility] Last Admin: 04/28/17 13:43 Dose: 3 ml Amlodipine Besylate (Norvasc) 10 mg PO DAILY [facility] Last Admin: 04/28/17 09:29 Dose: 10 mg Azithromycin (Zithromax) 500 mg PO DAILY [facility] Last Admin: 04/28/17 09:29 Dose: 500 mg Clonidine HCl (Catapres) 0.1 mg PO TID [facility] Last Admin: 04/28/17 13:33 Dose: 0.1 mg Diphenhydramine HCl (Benadryl) 25 mg PO Q6 PRN PRN Reason: Itching / Pruritus Last Admin: 04/28/17 09:30 Dose: 25 mg Enoxaparin Sodium (Lovenox) 40 mg SC DAILY [facility] Last Admin: 04/28/17 09:29 Dose: 40 mg Furosemide (Lasix) 20 mg PO DAILY [facility] Last Admin: 04/28/17 09:29 Dose: 20 mg Ceftriaxone Sodium 1 gm/ (Sodium Chloride) 100 mls @ 100 mls/hr IVPB Q12H [facility] Last Admin: 04/28/17 13:00 Dose: 100 mls/hr Loratadine (Claritin) 10 mg PO DAILY [facility] Last Admin: 04/28/17 09:34 Dose: Not Given Losartan Potassium (Cozaar) 100 mg PO DAILY [facility] Last Admin: 04/28/17 09:29 Dose: 100 mg Methylprednisolone (Solu-Medrol) 40 mg IVP Q8H [facility] Last Admin: 04/28/17 13:33 Dose: 40 mg Montelukast Sodium (Singulair) 10 mg PO DAILY [facility] Last Admin: 04/28/17 09:29 Dose: 10 mg Pantoprazole Sodium (Protonix Ec Tab) 40 mg PO DAILY [facility] Last Admin: 04/28/17 09:29 Dose: 40 mg Promethazine HCl/Dextromethorphan (Phenergan Dm Syrup) 5 ml PO Q6H PRN PRN Reason: Cough Last Admin: 04/28/17 09:30 Dose: 5 ml Fluticasone/Salmeterol (Advair Diskus 250/50) 1 puff INH RQ12 [facility] Last Admin: 04/28/17 07:17 Dose: Not Given - Labs Labs: 04/28/17 07:53 04/28/17 07:53 PT 12.2 SECONDS (9.7-12.2) 04/25/17 21:06 INR 1.1 04/25/17 21:06 APTT 31 SECONDS (21-34) 04/25/17 21:06 - Constitutional Appears: Well - Head Exam Head Exam: ATRAUMATIC, NORMAL INSPECTION, NORMOCEPHALIC - Eye Exam Eye Exam: EOMI, Normal appearance, PERRL Pupil Exam: NORMAL ACCOMODATION, PERRL - ENT Exam ENT Exam: Mucous Membranes Moist, Normal Exam - Neck Exam Neck Exam: Full ROM, Normal Inspection. absent: Lymphadenopathy - Respiratory Exam Respiratory Exam: Decreased Breath Sounds - Cardiovascular Exam Cardiovascular Exam: REGULAR RHYTHM, +S1, +S2 - GI/Abdominal Exam GI & Abdominal Exam: Soft, Diminished Bowel Sounds - Rectal Exam Rectal Exam: Deferred
--- NOTE | 2017-04-28 19:10 | CP.PCM.PN ---
Subjective - Date & Time of Evaluation Date of Evaluation: 04/28/17 Time of Evaluation: 19:09 - Subjective Subjective: Patient seen and examined No events overnight Objective - Vital Signs/Intake and Output Vital Signs (last 24 hours): Temp Pulse Resp BP Pulse Ox 98.3 F 76 20 133/84 98 04/28/17 16:00 04/28/17 16:00 04/28/17 16:00 04/28/17 16:00 04/28/17 16:00 Intake and Output: 04/28/17 04/29/17 18:59 06:59 Intake Total 1100 Balance 1100 - Medications Medications: Current Medications Acetaminophen (Tylenol 325mg Tab) 650 mg PO Q6 PRN PRN Reason: Fever >100.4 F Albuterol/Ipratropium (Duoneb 3 Mg/0.5 Mg (3 Ml) Ud) 3 ml IH RQ6 [facility] Last Admin: 04/28/17 13:43 Dose: 3 ml Amlodipine Besylate (Norvasc) 10 mg PO DAILY [facility] Last Admin: 04/28/17 09:29 Dose: 10 mg Azithromycin (Zithromax) 500 mg PO DAILY [facility] Last Admin: 04/28/17 09:29 Dose: 500 mg Clonidine HCl (Catapres) 0.1 mg PO TID [facility] Last Admin: 04/28/17 17:37 Dose: 0.1 mg Diphenhydramine HCl (Benadryl) 25 mg PO Q6 PRN PRN Reason: Itching / Pruritus Last Admin: 04/28/17 09:30 Dose: 25 mg Enoxaparin Sodium (Lovenox) 40 mg SC DAILY [facility] Last Admin: 04/28/17 09:29 Dose: 40 mg Furosemide (Lasix) 20 mg PO DAILY [facility] Last Admin: 04/28/17 09:29 Dose: 20 mg Ceftriaxone Sodium 1 gm/ (Sodium Chloride) 100 mls @ 100 mls/hr IVPB Q12H [facility] Last Admin: 04/28/17 13:00 Dose: 100 mls/hr Loratadine (Claritin) 10 mg PO DAILY [facility] Last Admin: 04/28/17 09:34 Dose: Not Given Losartan Potassium (Cozaar) 100 mg PO DAILY [facility] Last Admin: 04/28/17 09:29 Dose: 100 mg Methylprednisolone (Solu-Medrol) 40 mg IVP Q8H [facility] Last Admin: 12/21/17 13:33 Dose: 40 mg Montelukast Sodium (Singulair) 10 mg PO DAILY [facility] Last Admin: 04/28/17 09:29 Dose: 10 mg Pantoprazole Sodium (Protonix Ec Tab) 40 mg PO DAILY [facility] Last Admin: 04/28/17 09:29 Dose: 40 mg Promethazine HCl/Dextromethorphan (Phenergan Dm Syrup) 5 ml PO Q6H PRN PRN Reason: Cough Last Admin: 04/28/17 09:30 Dose: 5 ml Fluticasone/Salmeterol (Advair Diskus 250/50) 1 puff INH RQ12 [facility] Last Admin: 04/28/17 07:17 Dose: Not Given - Labs Labs: 04/28/17 07:53 04/28/17 07:53 PT 12.2 SECONDS (9.7-12.2) 04/25/17 21:06 INR 1.1 04/25/17 21:06 APTT 31 SECONDS (21-34) 04/25/17 21:06 - Head Exam Head Exam: NORMAL INSPECTION - Eye Exam Eye Exam: Normal appearance - ENT Exam ENT Exam: Mucous Membranes Moist - Respiratory Exam Respiratory Exam: Clear to Ausculation Bilateral - Cardiovascular Exam Cardiovascular Exam: REGULAR RHYTHM, +S1, +S2 - GI/Abdominal Exam GI & Abdominal Exam: Soft, Normal Bowel Sounds - Extremities Exam Extremities Exam: Normal Inspection Assessment and Plan (1) Acute asthma exacerbation Status: Acute - Assessment and Plan (Free Text) Plan: Bronchodilators IV steroids Advair 250/50 micrograms 1 puff twice a day Continue antibiotics Lasix 20 mg daily Phenergan DM as needed Singular 10 mg nightly
[2017-04-29] MEDS: Promethazine DM 6.25 mg-15 mg/5 ml Syrup PO PRN (00:01)
[2017-04-29] MEDS: Albuterol-Ipratrop 3 mg / 0.5 (3 ml) UD IH SCH ×4 (01:30→19:28)
[2017-04-29] MEDS: MethylPREDNISolone 40 mg Vial IVP SCH ×2 (06:15→18:22)
[2017-04-29 08:17] LABS: BASO % 0.3 % (0.0-2.0); HEMATOCRIT 37.4 % (34.0-47.0); LYMPH % 10.2 % (20.0-40.0); MEAN CELL VOLUME 85.8 fL (81.0-99.0); MEAN CORPUSCULAR HEMOGLOBIN 29.3 pg (27.0-31.0); MEAN CORPUSCULAR HGB CONC 34.2 g/dL (33.0-37.0); MEAN PLATELET VOLUME 9.2 fL (7.2-11.7); MONO # 0.4 K/uL (0.0-0.8); MONO % 3.5 % (0.0-10.0); NRBC % 0.1 % (0.0-2.0); RED CELL DISTRIBUTION WIDTH 14.6 % (11.5-14.5); WHITE BLOOD COUNT 10.2 K/uL (4.8-10.8)
[2017-04-29 08:54] LABS: ALB/GLOB RATIO 1.3 (1.0-2.1); ALKALINE PHOSPHATASE 57 U/L (38-126); ALT/SGPT 25 U/L (9-52); AST/SGOT 26 U/L (14-36); BILIRUBIN,TOTAL 0.3 mg/dL (0.2-1.3); BLOOD UREA NITROGEN 20 mg/dL (7-17); CALCIUM 8.7 mg/dl (8.6-10.4); CARBON DIOXIDE 34 mmol/L (22-30); CHLORIDE 97 mmol/L (98-107); GFR AFRICAN-AMERICAN > 60; GLUCOSE,RANDOM 160 mg/dL (65-105); POTASSIUM 4.6 mmol/L (3.6-5.2); SODIUM 136 mmol/L (132-148); TOTAL PROTEIN 6.6 g/dL (6.3-8.3)
[2017-04-29] MEDS: Fluticasone-Salmeterol 250-50mcg Diskus INH SCH ×2 (10:28→19:29)
[2017-04-29] MEDS: Pantoprazole 40 mg EC Tab PO SCH (10:34)
--- NOTE | 2017-04-29 11:01 | CP.PCM.PN ---
Subjective - Date & Time of Evaluation Date of Evaluation: 04/29/17 Time of Evaluation: 08:00 - Subjective Subjective: Progress note for Dr. Ortiz's Service Patient was seen and examined at bedside.She reports improvement in her breathing. She is still wheezing but does not feel feverish or have chills. She is comfortable at rest but when ambulating she becomes short of breath. Patient states her cough has resolved and no longer productive. Objective - Vital Signs/Intake and Output Vital Signs (last 24 hours): Temp Pulse Resp BP Pulse Ox 98.1 F 63 20 174/71 H 97 04/29/17 07:52 04/29/17 07:52 04/29/17 07:52 04/29/17 10:35 04/29/17 07:52 Intake and Output: 04/29/17 04/29/17 06:59 18:59 Intake Total 240 Balance 240 - Medications Medications: Current Medications Acetaminophen (Tylenol 325mg Tab) 650 mg PO Q6 PRN PRN Reason: Fever >100.4 F Albuterol/Ipratropium (Duoneb 3 Mg/0.5 Mg (3 Ml) Ud) 3 ml IH RQ6 [facility] Last Admin: 04/29/17 01:30 Dose: 3 ml Amlodipine Besylate (Norvasc) 10 mg PO DAILY [facility] Last Admin: 04/29/17 10:38 Dose: 10 mg Azithromycin (Zithromax) 500 mg PO DAILY [facility] Last Admin: 04/29/17 10:38 Dose: 500 mg Clonidine HCl (Catapres) 0.1 mg PO TID [facility] Last Admin: 04/29/17 10:34 Dose: 0.1 mg Diphenhydramine HCl (Benadryl) 25 mg PO Q6 PRN PRN Reason: Itching / Pruritus Last Admin: 04/28/17 20:57 Dose: 25 mg Enoxaparin Sodium (Lovenox) 40 mg SC DAILY [facility] Last Admin: 04/28/17 09:29 Dose: 40 mg Furosemide (Lasix) 20 mg PO DAILY [facility] Last Admin: 04/29/17 10:35 Dose: 20 mg Ceftriaxone Sodium 1 gm/ (Sodium Chloride) 100 mls @ 100 mls/hr IVPB Q12H [facility] Last Admin: 04/28/17 23:54 Dose: 100 mls/hr Loratadine (Claritin) 10 mg PO DAILY [facility] Last Admin: 04/29/17 10:41 Dose: 10 mg Losartan Potassium (Cozaar) 100 mg PO DAILY [facility] Last Admin: 04/29/17 10:34 Dose: 100 mg Methylprednisolone (Solu-Medrol) 40 mg IVP Q12H [facility] Montelukast Sodium (Singulair) 10 mg PO DAILY [facility] Last Admin: 04/29/17 10:34 Dose: 10 mg Pantoprazole Sodium (Protonix Ec Tab) 40 mg PO DAILY [facility] Last Admin: 04/29/17 10:34 Dose: 40 mg Promethazine HCl/Dextromethorphan (Phenergan Dm Syrup) 5 ml PO Q6H PRN PRN Reason: Cough Last Admin: 04/29/17 00:01 Dose: 5 ml Fluticasone/Salmeterol (Advair Diskus 250/50) 1 puff INH RQ12 [facility] Last Admin: 04/29/17 10:28 Dose: Not Given - Labs Labs: 04/29/17 08:00 04/29/17 08:00 PT 12.2 SECONDS (9.7-12.2) 04/25/17 21:06 INR 1.1 04/25/17 21:06 APTT 31 SECONDS (21-34) 04/25/17 21:06 - Constitutional Appears: Non-toxic, No Acute Distress - Head Exam Head Exam: NORMAL INSPECTION - Eye Exam Eye Exam: EOMI - ENT Exam ENT Exam: Mucous Membranes Moist - Respiratory Exam Respiratory Exam: Wheezes. absent: Clear to Ausculation Bilateral Additional comments: wheezing minimal and has greatly improved. - Cardiovascular Exam Cardiovascular Exam: REGULAR RHYTHM, +S1, +S2 - GI/Abdominal Exam GI & Abdominal Exam: Soft, Normal Bowel Sounds. absent: Distended, Firm, Guarding, Tenderness Additional comments: obese - Extremities Exam Extremities Exam: Normal Inspection - Back Exam Back Exam: NORMAL INSPECTION - Neurological Exam Neurological Exam: Alert, Awake, Oriented x3 - Psychiatric Exam Psychiatric exam: Normal Affect, Normal Mood - Skin Skin Exam: Dry, Intact, Normal Color, Warm Assessment and Plan - Assessment and Plan (Free Text) Assessment: COPD/asthma exacerbation Patient is still wheezing, improving, able to speak in full sentences Duonebs RQ6 Claritin 10mg PO daily SoluMedrol 40mg IVP [id number] Singulair 10mg PO [address] Alva consulted, help appreciated - patient will need sleep study outpatient to evaluate for sleep apnea Chest X ray on 04/25 showed a limited study - repeat chest X ray 04/27 - COPD confluent airspace disease in the right lower lobe could represent atelectasis or pneumonia, follow up advised f/u am labs Pneumonia Tylenol prn fevers, Zithromax 500mg PO daily Ceftriaxone 1gram IVPB Q12 hours Phenegran DM WBC now WNL Dr. Marie consulted- recs appreciated ESR/CRP elevated but improved Follow up sputum gram stain Patient was afebrile for >24hrs Influenza negative legionella, mycoplasma negative Leg Edema Lasix 20mg PO daily Hypertension- Controlled Norvasc 10mg PO daily Clonidine 0.1 mg PO TID Cozaar 100mg PO daily Morbid Obesity Encouraged to lose weight Prophylactic Measures Benadryl prn pruritus Protonix 40mg PO daily Lovenox 40mg SC daily This patient will need a sleep study once she is discharged. Case Discussed with Dr. Ortiz. All management per Dr. Philly Ortiz.
[2017-04-29] MEDS: Enoxaparin 40 mg Syringe SC SCH (12:19)
[2017-04-29 15:28] LABS: ABG ALLEN TEST P; ARTERIAL BLOOD HGB O2 SAT 92.9 % (95.0-98.0); DRAW SITE RRA; HHB 3.4 % (0.0-5.0); METHEMOGLOBIN 1.8 % (0.0-3.0)
--- NOTE | 2017-04-29 15:28 | CP.PCM.PN ---
Subjective - Date & Time of Evaluation Date of Evaluation: 04/29/17 Time of Evaluation: 15:27 Objective - Vital Signs/Intake and Output Vital Signs (last 24 hours): Temp Pulse Resp BP Pulse Ox 98.1 F 63 20 174/71 H 97 04/29/17 07:52 04/29/17 07:52 04/29/17 07:52 04/29/17 10:35 04/29/17 07:52 Intake and Output: 04/29/17 04/29/17 06:59 18:59 Intake Total 540 Balance 540 - Medications Medications: Current Medications Acetaminophen (Tylenol 325mg Tab) 650 mg PO Q6 PRN PRN Reason: Fever >100.4 F Albuterol/Ipratropium (Duoneb 3 Mg/0.5 Mg (3 Ml) Ud) 3 ml IH RQ6 [facility] Last Admin: 04/29/17 08:30 Dose: Not Given Amlodipine Besylate (Norvasc) 10 mg PO DAILY [facility] Last Admin: 04/29/17 10:38 Dose: 10 mg Azithromycin (Zithromax) 500 mg PO DAILY [facility] Last Admin: 04/29/17 10:38 Dose: 500 mg Clonidine HCl (Catapres) 0.1 mg PO TID [facility] Last Admin: 04/29/17 15:17 Dose: 0.1 mg Diphenhydramine HCl (Benadryl) 25 mg PO Q6 PRN PRN Reason: Itching / Pruritus Last Admin: 04/28/17 20:57 Dose: 25 mg Enoxaparin Sodium (Lovenox) 40 mg SC DAILY [facility] Last Admin: 04/29/17 12:19 Dose: 40 mg Furosemide (Lasix) 20 mg PO DAILY [facility] Last Admin: 04/29/17 10:35 Dose: 20 mg Ceftriaxone Sodium 1 gm/ (Sodium Chloride) 100 mls @ 100 mls/hr IVPB Q12H [facility] Last Admin: 04/29/17 12:20 Dose: Not Given Loratadine (Claritin) 10 mg PO DAILY [facility] Last Admin: 04/29/17 10:41 Dose: 10 mg Losartan Potassium (Cozaar) 100 mg PO DAILY [facility] Last Admin: 04/29/17 10:34 Dose: 100 mg Methylprednisolone (Solu-Medrol) 40 mg IVP Q12H [facility] Montelukast Sodium (Singulair) 10 mg PO DAILY [facility] Last Admin: 04/29/17 10:34 Dose: 10 mg Pantoprazole Sodium (Protonix Ec Tab) 40 mg PO DAILY [facility] Last Admin: 04/29/17 10:34 Dose: 40 mg Promethazine HCl/Dextromethorphan (Phenergan Dm Syrup) 5 ml PO Q6H PRN PRN Reason: Cough Last Admin: 04/29/17 00:01 Dose: 5 ml Fluticasone/Salmeterol (Advair Diskus 250/50) 1 puff INH RQ12 [facility] Last Admin: 04/29/17 10:28 Dose: Not Given - Labs Labs: 04/29/17 08:00 04/29/17 08:00 PT 12.2 SECONDS (9.7-12.2) 04/25/17 21:06 INR 1.1 04/25/17 21:06 APTT 31 SECONDS (21-34) 04/25/17 21:06 Assessment and Plan (1) Acute asthma exacerbation Status: Acute
--- NOTE | 2017-04-29 21:20 | CP.PCM.PN ---
Subjective - Date & Time of Evaluation Date of Evaluation: 04/29/17 Time of Evaluation: 07:20 - Subjective Subjective: clinically same Objective - Vital Signs/Intake and Output Vital Signs (last 24 hours): Temp Pulse Resp BP Pulse Ox 98.2 F 80 20 138/80 95 04/29/17 16:00 04/29/17 16:00 04/29/17 16:00 04/29/17 16:00 04/29/17 16:00 Intake and Output: 04/29/17 04/30/17 18:59 06:59 Intake Total 540 Balance 540 - Medications Medications: Current Medications Acetaminophen (Tylenol 325mg Tab) 650 mg PO Q6 PRN PRN Reason: Fever >100.4 F Albuterol/Ipratropium (Duoneb 3 Mg/0.5 Mg (3 Ml) Ud) 3 ml IH RQ6 [facility] Last Admin: 04/29/17 19:28 Dose: 3 ml Amlodipine Besylate (Norvasc) 10 mg PO DAILY [facility] Last Admin: 04/29/17 10:38 Dose: 10 mg Azithromycin (Zithromax) 500 mg PO DAILY [facility] Last Admin: 04/29/17 10:38 Dose: 500 mg Clonidine HCl (Catapres) 0.1 mg PO TID [facility] Last Admin: 04/29/17 18:25 Dose: 0.1 mg Diphenhydramine HCl (Benadryl) 25 mg PO Q6 PRN PRN Reason: Itching / Pruritus Last Admin: 04/28/17 20:57 Dose: 25 mg Enoxaparin Sodium (Lovenox) 40 mg SC DAILY [facility] Last Admin: 04/29/17 12:19 Dose: 40 mg Furosemide (Lasix) 20 mg PO DAILY [facility] Last Admin: 04/29/17 10:35 Dose: 20 mg Ceftriaxone Sodium 1 gm/ (Sodium Chloride) 100 mls @ 100 mls/hr IVPB Q12H [facility] Last Admin: 04/29/17 12:20 Dose: Not Given Loratadine (Claritin) 10 mg PO DAILY [facility] Last Admin: 04/29/17 10:41 Dose: 10 mg Losartan Potassium (Cozaar) 100 mg PO DAILY [facility] Last Admin: 04/29/17 10:34 Dose: 100 mg Methylprednisolone (Solu-Medrol) 40 mg IVP Q12H [facility] Last Admin: 04/29/17 18:22 Dose: 40 mg Montelukast Sodium (Singulair) 10 mg PO DAILY [facility] Last Admin: 04/29/17 10:34 Dose: 10 mg Pantoprazole Sodium (Protonix Ec Tab) 40 mg PO DAILY [facility] Last Admin: 04/29/17 10:34 Dose: 40 mg Promethazine HCl/Dextromethorphan (Phenergan Dm Syrup) 5 ml PO Q6H PRN PRN Reason: Cough Last Admin: 04/29/17 00:01 Dose: 5 ml Fluticasone/Salmeterol (Advair Diskus 250/50) 1 puff INH RQ12 [facility] Last Admin: 04/29/17 19:29 Dose: 1 puff - Labs Labs: 04/29/17 08:00 04/29/17 08:00 PT 12.2 SECONDS (9.7-12.2) 04/25/17 21:06 INR 1.1 04/25/17 21:06 APTT 31 SECONDS (21-34) 04/25/17 21:06
--- NOTE | 2017-04-29 22:49 | CP.PCM.PN ---
Subjective - Date & Time of Evaluation Date of Evaluation: 04/29/17 Time of Evaluation: 22:48 - Subjective Subjective: CHIEF COMPLAINTS TODAY : AFEBRILE STILL C/O WHEEZING ROS. HEENT : N. Resp : +VE COUGH /WHEEZING , NO pleuritic CP ,or hemoptysis Cardio : No anginal CP, PND, orthopnea, palpitation GI : No abd.pain, n/v ,diarrhea or GI bleeding . [employer] : No headache, vertigo, focal deficit. Musculoskel : No joint swelling , Derm : No rash Psych : Normal affect. Ext : No swelling ,calf pain PE. Pt. is alert awake in no distress. V.S As noted in the chart Head ,ear nose,throat and eyes : Normal. Neck : Supple with normal carotids. Lungs: B/L WHEEZING Heart : S1 & S2 normal with S4. No murmur. Abd : Soft non tender with normal bowel sounds. Neuro : Moves all ext. with no localized deficit. Ext : No edema with intact pulses.Non tender calves Derm : No rashes or decubitus ulcer. LABS/RADIOLOGY: WBC 10.2 improving esr 30 improving Creatinine 0.6/BUN 20 LFTs normal. Blood cultures negative to date Sputum Gram stain -rare gram-positive cocci in pairs, few WBCs. chest x-ray 04/27/17 diffuse right-sided airspace disease ASSESSMENT; RLL PNEUMONIA ?CAP VS ATYPICAL. exacerbation of asthma Dyspnea Hypertension Morbid obesity. /PLAN : continue IV Rocephin 1 g every 12 hourly.04/25/17 Continue Zithromax 500 mg once a day daily. 04/25/17. Follow-up sputum cultures to adjust antibiotics. IV Solu-Medrol 40 mg every 12 hourly as per pulmonary. .Pulmonary toilet. Objective - Vital Signs/Intake and Output Vital Signs (last 24 hours): Temp Pulse Resp BP Pulse Ox 98.2 F 80 20 138/80 95 04/29/17 16:00 04/29/17 16:00 04/29/17 16:00 04/29/17 16:00 04/29/17 16:00 Intake and Output: 04/29/17 04/30/17 18:59 06:59 Intake Total 540 Balance 540 - Medications Medications: Current Medications Acetaminophen (Tylenol 325mg Tab) 650 mg PO Q6 PRN PRN Reason: Fever >100.4 F Albuterol/Ipratropium (Duoneb 3 Mg/0.5 Mg (3 Ml) Ud) 3 ml IH RQ6 [facility] Last Admin: 04/29/17 19:28 Dose: 3 ml Amlodipine Besylate (Norvasc) 10 mg PO DAILY [facility] Last Admin: 04/29/17 10:38 Dose: 10 mg Azithromycin (Zithromax) 500 mg PO DAILY [facility] Last Admin: 04/29/17 10:38 Dose: 500 mg Clonidine HCl (Catapres) 0.1 mg PO TID [facility] Last Admin: 04/29/17 18:25 Dose: 0.1 mg Diphenhydramine HCl (Benadryl) 25 mg PO Q6 PRN PRN Reason: Itching / Pruritus Last Admin: 04/28/17 20:57 Dose: 25 mg Enoxaparin Sodium (Lovenox) 40 mg SC DAILY [facility] Last Admin: 04/29/17 12:19 Dose: 40 mg Furosemide (Lasix) 20 mg PO DAILY [facility] Last Admin: 04/29/17 10:35 Dose: 20 mg Ceftriaxone Sodium 1 gm/ (Sodium Chloride) 100 mls @ 100 mls/hr IVPB Q12H [facility] Last Admin: 04/29/17 12:20 Dose: Not Given Loratadine (Claritin) 10 mg PO DAILY [facility] Last Admin: 04/29/17 10:41 Dose: 10 mg Losartan Potassium (Cozaar) 100 mg PO DAILY [facility] Last Admin: 04/29/17 10:34 Dose: 100 mg Methylprednisolone (Solu-Medrol) 40 mg IVP Q12H [facility] Last Admin: 04/29/17 18:22 Dose: 40 mg Montelukast Sodium (Singulair) 10 mg PO DAILY [facility] Last Admin: 04/29/17 10:34 Dose: 10 mg Pantoprazole Sodium (Protonix Ec Tab) 40 mg PO DAILY [facility] Last Admin: 04/29/17 10:34 Dose: 40 mg Promethazine HCl/Dextromethorphan (Phenergan Dm Syrup) 5 ml PO Q6H PRN PRN Reason: Cough Last Admin: 04/29/17 00:01 Dose: 5 ml Fluticasone/Salmeterol (Advair Diskus 250/50) 1 puff INH RQ12 [facility] Last Admin: 04/29/17 19:29 Dose: 1 puff - Labs Labs: 04/29/17 08:00 04/29/17 08:00 PT 12.2 SECONDS (9.7-12.2) 04/25/17 21:06 INR 1.1 04/25/17 21:06 APTT 31 SECONDS (21-34) 04/25/17 21:06 Assessment and Plan (1) Asthma exacerbation Status: Acute (2) Dyspnea Status: Acute (3) HTN (hypertension) Status: Acute (4) Morbid obesity Status: Acute
[2017-04-30] MEDS: Albuterol-Ipratrop 3 mg / 0.5 (3 ml) UD IH SCH ×4 (02:01→19:25)
[2017-04-30] MEDS: MethylPREDNISolone 40 mg Vial IVP SCH ×2 (05:42→17:06)
[2017-04-30] MEDS: Fluticasone-Salmeterol 250-50mcg Diskus INH SCH ×2 (07:32→19:25)
[2017-04-30 08:27] LABS: BASO % 0.2 % (0.0-2.0); HEMATOCRIT 38.4 % (34.0-47.0); LYMPH # 1.2 K/uL (1.0-4.3); LYMPH % 12.3 % (20.0-40.0); MEAN CELL VOLUME 84.5 fL (81.0-99.0); MEAN CORPUSCULAR HEMOGLOBIN 28.8 pg (27.0-31.0); MEAN CORPUSCULAR HGB CONC 34.1 g/dL (33.0-37.0); MEAN PLATELET VOLUME 9.2 fL (7.2-11.7); MONO # 0.5 K/uL (0.0-0.8); MONO % 4.9 % (0.0-10.0); NRBC % 0.1 % (0.0-2.0); RED CELL DISTRIBUTION WIDTH 14.6 % (11.5-14.5); WHITE BLOOD COUNT 9.4 K/uL (4.8-10.8)
[2017-04-30 08:51] LABS: ALB/GLOB RATIO 0.9 (1.0-2.1); ALKALINE PHOSPHATASE 53 U/L (38-126); ALT/SGPT 33 U/L (9-52); AST/SGOT 20 U/L (14-36); BILIRUBIN,TOTAL 0.4 mg/dL (0.2-1.3); BLOOD UREA NITROGEN 19 mg/dL (7-17); CALCIUM 8.8 mg/dl (8.6-10.4); CARBON DIOXIDE 36 mmol/L (22-30); CHLORIDE 94 mmol/L (98-107); GFR AFRICAN-AMERICAN > 60; GLUCOSE,RANDOM 158 mg/dL (65-105); POTASSIUM 4.9 mmol/L (3.6-5.2); SODIUM 134 mmol/L (132-148); TOTAL PROTEIN 7.8 g/dL (6.3-8.3)
[2017-04-30] MEDS: Pantoprazole 40 mg EC Tab PO SCH (09:58)
[2017-04-30] MEDS: Promethazine DM 6.25 mg-15 mg/5 ml Syrup PO PRN ×2 (09:59→17:06)
[2017-04-30] MEDS: Enoxaparin 40 mg Syringe SC SCH (09:59)
--- NOTE | 2017-04-30 13:35 | CP.PCM.PN ---
Subjective - Date & Time of Evaluation Date of Evaluation: 04/30/17 Time of Evaluation: 13:35 Objective - Vital Signs/Intake and Output Vital Signs (last 24 hours): Temp Pulse Resp BP Pulse Ox 98.0 F 61 20 153/82 H 95 04/30/17 07:46 04/30/17 07:46 04/30/17 07:46 04/30/17 09:58 04/30/17 07:46 Intake and Output: 04/30/17 04/30/17 06:59 18:59 Intake Total 480 Balance 480 - Medications Medications: Current Medications Acetaminophen (Tylenol 325mg Tab) 650 mg PO Q6 PRN PRN Reason: Fever >100.4 F Albuterol/Ipratropium (Duoneb 3 Mg/0.5 Mg (3 Ml) Ud) 3 ml IH RQ6 [facility] Last Admin: 04/30/17 13:12 Dose: 3 ml Amlodipine Besylate (Norvasc) 10 mg PO DAILY [facility] Last Admin: 04/30/17 09:58 Dose: 10 mg Azithromycin (Zithromax) 500 mg PO DAILY [facility] Last Admin: 04/30/17 09:58 Dose: 500 mg Clonidine HCl (Catapres) 0.1 mg PO TID [facility] Last Admin: 04/30/17 09:58 Dose: 0.1 mg Diphenhydramine HCl (Benadryl) 25 mg PO Q6 PRN PRN Reason: Itching / Pruritus Last Admin: 04/30/17 12:18 Dose: 25 mg Enoxaparin Sodium (Lovenox) 40 mg SC DAILY [facility] Last Admin: 04/30/17 09:59 Dose: 40 mg Furosemide (Lasix) 20 mg PO DAILY [facility] Last Admin: 04/30/17 09:58 Dose: 20 mg Ceftriaxone Sodium 1 gm/ (Sodium Chloride) 100 mls @ 100 mls/hr IVPB Q12H [facility] Last Admin: 04/30/17 12:18 Dose: 100 mls/hr Loratadine (Claritin) 10 mg PO DAILY [facility] Last Admin: 04/30/17 09:58 Dose: 10 mg Losartan Potassium (Cozaar) 100 mg PO DAILY [facility] Last Admin: 04/30/17 09:58 Dose: 100 mg Methylprednisolone (Solu-Medrol) 40 mg IVP Q12H [facility] Last Admin: 04/30/17 05:42 Dose: 40 mg Montelukast Sodium (Singulair) 10 mg PO DAILY [facility] Last Admin: 04/30/17 09:58 Dose: 10 mg Pantoprazole Sodium (Protonix Ec Tab) 40 mg PO DAILY [facility] Last Admin: 04/30/17 09:58 Dose: 40 mg Promethazine HCl/Dextromethorphan (Phenergan Dm Syrup) 5 ml PO Q6H PRN PRN Reason: Cough Last Admin: 04/30/17 09:59 Dose: 5 ml Fluticasone/Salmeterol (Advair Diskus 250/50) 1 puff INH RQ12 [facility] Last Admin: 04/30/17 07:32 Dose: 1 puff - Labs Labs: 04/30/17 08:15 04/30/17 08:15 PT 12.2 SECONDS (9.7-12.2) 04/25/17 21:06 INR 1.1 04/25/17 21:06 APTT 31 SECONDS (21-34) 04/25/17 21:06 Assessment and Plan (1) Acute asthma exacerbation Status: Acute
--- NOTE | 2017-04-30 15:15 | CP.PCM.PN ---
Subjective - Date & Time of Evaluation Date of Evaluation: 04/30/17 Time of Evaluation: 07:20 - Subjective Subjective: clinically same Objective - Vital Signs/Intake and Output Vital Signs (last 24 hours): Temp Pulse Resp BP Pulse Ox 98.0 F 88 20 162/93 H 95 04/30/17 07:46 04/30/17 13:57 04/30/17 13:57 04/30/17 13:57 04/30/17 07:46 Intake and Output: 04/30/17 04/30/17 06:59 18:59 Intake Total 1080 Balance 1080 - Medications Medications: Current Medications Acetaminophen (Tylenol 325mg Tab) 650 mg PO Q6 PRN PRN Reason: Fever >100.4 F Albuterol/Ipratropium (Duoneb 3 Mg/0.5 Mg (3 Ml) Ud) 3 ml IH RQ6 [facility] Last Admin: 04/30/17 13:12 Dose: 3 ml Amlodipine Besylate (Norvasc) 10 mg PO DAILY [facility] Last Admin: 04/30/17 09:58 Dose: 10 mg Azithromycin (Zithromax) 500 mg PO DAILY [facility] Last Admin: 04/30/17 09:58 Dose: 500 mg Clonidine HCl (Catapres) 0.1 mg PO TID [facility] Last Admin: 04/30/17 13:56 Dose: 0.1 mg Diphenhydramine HCl (Benadryl) 25 mg PO Q6 PRN PRN Reason: Itching / Pruritus Last Admin: 04/30/17 12:18 Dose: 25 mg Enoxaparin Sodium (Lovenox) 40 mg SC DAILY [facility] Last Admin: 04/30/17 09:59 Dose: 40 mg Furosemide (Lasix) 20 mg PO DAILY [facility] Last Admin: 04/30/17 09:58 Dose: 20 mg Ceftriaxone Sodium 1 gm/ (Sodium Chloride) 100 mls @ 100 mls/hr IVPB Q12H [facility] Last Admin: 04/30/17 12:18 Dose: 100 mls/hr Loratadine (Claritin) 10 mg PO DAILY [facility] Last Admin: 04/30/17 09:58 Dose: 10 mg Losartan Potassium (Cozaar) 100 mg PO DAILY [facility] Last Admin: 04/30/17 09:58 Dose: 100 mg Methylprednisolone (Solu-Medrol) 40 mg IVP Q12H [facility] Last Admin: 04/30/17 05:42 Dose: 40 mg Montelukast Sodium (Singulair) 10 mg PO DAILY [facility] Last Admin: 04/30/17 09:58 Dose: 10 mg Pantoprazole Sodium (Protonix Ec Tab) 40 mg PO DAILY [facility] Last Admin: 04/30/17 09:58 Dose: 40 mg Promethazine HCl/Dextromethorphan (Phenergan Dm Syrup) 5 ml PO Q6H PRN PRN Reason: Cough Last Admin: 04/30/17 09:59 Dose: 5 ml Fluticasone/Salmeterol (Advair Diskus 250/50) 1 puff INH RQ12 [facility] Last Admin: 04/30/17 07:32 Dose: 1 puff - Labs Labs: 04/30/17 08:15 04/30/17 08:15 PT 12.2 SECONDS (9.7-12.2) 04/25/17 21:06 INR 1.1 04/25/17 21:06 APTT 31 SECONDS (21-34) 04/25/17 21:06 - Constitutional Appears: Well - Head Exam Head Exam: ATRAUMATIC, NORMAL INSPECTION, NORMOCEPHALIC - Eye Exam Eye Exam: EOMI, Normal appearance, PERRL Pupil Exam: NORMAL ACCOMODATION, PERRL - ENT Exam ENT Exam: Mucous Membranes Moist, Normal Exam - Neck Exam Neck Exam: Full ROM, Normal Inspection. absent: Lymphadenopathy - Respiratory Exam Respiratory Exam: Decreased Breath Sounds - Cardiovascular Exam Cardiovascular Exam: REGULAR RHYTHM, +S1, +S2 - GI/Abdominal Exam GI & Abdominal Exam: Soft, Diminished Bowel Sounds - Rectal Exam Rectal Exam: Deferred
[2017-05-01] MEDS: Albuterol-Ipratrop 3 mg / 0.5 (3 ml) UD IH SCH (02:00)
[2017-05-01] MEDS: MethylPREDNISolone 40 mg Vial IVP SCH ×2 (05:06→17:02)
[2017-05-01] MEDS: Fluticasone-Salmeterol 250-50mcg Diskus INH SCH ×2 (07:33→20:59)
[2017-05-01] MEDS: Albuterol-Ipratrop 3 mg / 0.5 (3 ml) UD INH SCH ×4 (07:38→20:59)
[2017-05-01 08:11] LABS: BASO % 0.5 % (0.0-2.0); EOS % 0.1 % (0.0-4.0); HEMATOCRIT 41.2 % (34.0-47.0); LYMPH # 1.5 K/uL (1.0-4.3); LYMPH % 15.4 % (20.0-40.0); MEAN CELL VOLUME 85.3 fL (81.0-99.0); MEAN CORPUSCULAR HGB CONC 33.9 g/dL (33.0-37.0); MEAN PLATELET VOLUME 9.2 fL (7.2-11.7); MONO # 0.5 K/uL (0.0-0.8); NRBC % 0.1 % (0.0-2.0); RED CELL DISTRIBUTION WIDTH 14.3 % (11.5-14.5); WHITE BLOOD COUNT 9.6 K/uL (4.8-10.8)
[2017-05-01 08:28] LABS: ALB/GLOB RATIO 1.1 (1.0-2.1); ALKALINE PHOSPHATASE 48 U/L (38-126); ALT/SGPT 31 U/L (9-52); AST/SGOT 19 U/L (14-36); BILIRUBIN,TOTAL 0.4 mg/dL (0.2-1.3); BLOOD UREA NITROGEN 19 mg/dL (7-17); CALCIUM 8.7 mg/dl (8.6-10.4); CARBON DIOXIDE 39 mmol/L (22-30); CHLORIDE 92 mmol/L (98-107); GFR AFRICAN-AMERICAN > 60; GLUCOSE,RANDOM 148 mg/dL (65-105); POTASSIUM 4.8 mmol/L (3.6-5.2); SODIUM 134 mmol/L (132-148)
[2017-05-01] MEDS: Enoxaparin 40 mg Syringe SC SCH (09:25)
[2017-05-01] MEDS: Promethazine DM 6.25 mg-15 mg/5 ml Syrup PO PRN ×2 (09:26→16:56)
[2017-05-01] MEDS: Pantoprazole 40 mg EC Tab PO SCH (09:31)
--- NOTE | 2017-05-01 14:44 | CP.PCM.PN ---
Subjective - Date & Time of Evaluation Date of Evaluation: 05/01/17 Time of Evaluation: 14:44 Objective - Vital Signs/Intake and Output Vital Signs (last 24 hours): Temp Pulse Resp BP Pulse Ox 98.3 F 78 20 135/78 96 05/01/17 08:00 05/01/17 08:00 05/01/17 08:00 05/01/17 14:03 05/01/17 08:00 Intake and Output: 05/01/17 05/01/17 06:59 18:59 Intake Total 340 340 Balance 340 340 - Medications Medications: Current Medications Acetaminophen (Tylenol 325mg Tab) 650 mg PO Q6 PRN PRN Reason: Fever >100.4 F Last Admin: 04/30/17 21:08 Dose: 650 mg Albuterol/Ipratropium (Duoneb 3 Mg/0.5 Mg (3 Ml) Ud) 3 ml INH RQ6 [facility] Last Admin: 05/01/17 14:34 Dose: Not Given Amlodipine Besylate (Norvasc) 10 mg PO DAILY [facility] Last Admin: 05/01/17 09:31 Dose: 10 mg Azithromycin (Zithromax) 500 mg PO DAILY [facility] Last Admin: 05/01/17 09:27 Dose: 500 mg Clonidine HCl (Catapres) 0.1 mg PO TID [facility] Last Admin: 05/01/17 13:53 Dose: 0.1 mg Diphenhydramine HCl (Benadryl) 25 mg PO Q6 PRN PRN Reason: Itching / Pruritus Last Admin: 04/30/17 12:18 Dose: 25 mg Docusate Sodium (Colace) 100 mg PO TID [facility] Last Admin: 05/01/17 13:53 Dose: 100 mg Enoxaparin Sodium (Lovenox) 40 mg SC DAILY [facility] Last Admin: 05/01/17 09:25 Dose: 40 mg Furosemide (Lasix) 20 mg PO DAILY [facility] Last Admin: 05/01/17 09:31 Dose: 20 mg Ceftriaxone Sodium 1 gm/ (Sodium Chloride) 100 mls @ 100 mls/hr IVPB Q12H [facility] Last Admin: 05/01/17 12:16 Dose: 100 mls/hr Loratadine (Claritin) 10 mg PO DAILY [facility] Last Admin: 05/01/17 09:22 Dose: 10 mg Losartan Potassium (Cozaar) 100 mg PO DAILY [facility] Last Admin: 05/01/17 09:25 Dose: 100 mg Methylprednisolone (Solu-Medrol) 40 mg IVP Q12H [facility] Last Admin: 05/01/17 05:06 Dose: 40 mg Montelukast Sodium (Singulair) 10 mg PO DAILY [facility] Last Admin: 05/01/17 09:22 Dose: 10 mg Pantoprazole Sodium (Protonix Ec Tab) 40 mg PO DAILY [facility] Last Admin: 05/01/17 09:31 Dose: 40 mg Promethazine HCl/Dextromethorphan (Phenergan Dm Syrup) 5 ml PO Q6H PRN PRN Reason: Cough Last Admin: 05/01/17 09:26 Dose: 5 ml Fluticasone/Salmeterol (Advair Diskus 250/50) 1 puff INH RQ12 [facility] Last Admin: 05/01/17 07:33 Dose: Not Given - Labs Labs: 05/01/17 07:54 05/01/17 07:54 PT 12.2 SECONDS (9.7-12.2) 04/25/17 21:06 INR 1.1 04/25/17 21:06 APTT 31 SECONDS (21-34) 04/25/17 21:06 Assessment and Plan (1) Acute asthma exacerbation Status: Acute
--- NOTE | 2017-05-01 17:34 | CP.PCM.PN ---
Subjective - Date & Time of Evaluation Date of Evaluation: 05/01/17 Time of Evaluation: 07:20 - Subjective Subjective: clinically same Objective - Vital Signs/Intake and Output Vital Signs (last 24 hours): Temp Pulse Resp BP Pulse Ox 97.2 F L 63 20 135/73 98 05/01/17 15:00 05/01/17 15:00 05/01/17 15:00 05/01/17 15:00 05/01/17 15:00 Intake and Output: 05/01/17 05/01/17 06:59 18:59 Intake Total 340 340 Balance 340 340 - Medications Medications: Current Medications Acetaminophen (Tylenol 325mg Tab) 650 mg PO Q6 PRN PRN Reason: Fever >100.4 F Last Admin: 05/01/17 16:56 Dose: 650 mg Albuterol/Ipratropium (Duoneb 3 Mg/0.5 Mg (3 Ml) Ud) 3 ml INH RQ6 [facility] Last Admin: 05/01/17 14:34 Dose: Not Given Amlodipine Besylate (Norvasc) 10 mg PO DAILY [facility] Last Admin: 05/01/17 09:31 Dose: 10 mg Azithromycin (Zithromax) 500 mg PO DAILY [facility] Last Admin: 05/01/17 09:27 Dose: 500 mg Clonidine HCl (Catapres) 0.1 mg PO TID [facility] Last Admin: 05/01/17 17:02 Dose: 0.1 mg Diphenhydramine HCl (Benadryl) 25 mg PO Q6 PRN PRN Reason: Itching / Pruritus Last Admin: 04/30/17 12:18 Dose: 25 mg Docusate Sodium (Colace) 100 mg PO TID [facility] Last Admin: 05/01/17 17:02 Dose: 100 mg Enoxaparin Sodium (Lovenox) 40 mg SC DAILY [facility] Last Admin: 05/01/17 09:25 Dose: 40 mg Furosemide (Lasix) 20 mg PO DAILY [facility] Last Admin: 05/01/17 09:31 Dose: 20 mg Ceftriaxone Sodium 1 gm/ (Sodium Chloride) 100 mls @ 100 mls/hr IVPB Q12H [facility] Last Admin: 05/01/17 12:16 Dose: 100 mls/hr Loratadine (Claritin) 10 mg PO DAILY [facility] Last Admin: 05/01/17 09:22 Dose: 10 mg Losartan Potassium (Cozaar) 100 mg PO DAILY [facility] Last Admin: 05/01/17 09:25 Dose: 100 mg Methylprednisolone (Solu-Medrol) 40 mg IVP Q12H [facility] Last Admin: 05/01/17 17:02 Dose: 40 mg Montelukast Sodium (Singulair) 10 mg PO DAILY [facility] Last Admin: 05/01/17 09:22 Dose: 10 mg Pantoprazole Sodium (Protonix Ec Tab) 40 mg PO DAILY [facility] Last Admin: 05/01/17 09:31 Dose: 40 mg Promethazine HCl/Dextromethorphan (Phenergan Dm Syrup) 5 ml PO Q6H PRN PRN Reason: Cough Last Admin: 05/01/17 16:56 Dose: 5 ml Fluticasone/Salmeterol (Advair Diskus 250/50) 1 puff INH RQ12 [facility] Last Admin: 05/01/17 07:33 Dose: Not Given - Labs Labs: 05/01/17 07:54 05/01/17 07:54 PT 12.2 SECONDS (9.7-12.2) 04/25/17 21:06 INR 1.1 04/25/17 21:06 APTT 31 SECONDS (21-34) 04/25/17 21:06 - Constitutional Appears: Well - Head Exam Head Exam: ATRAUMATIC, NORMAL INSPECTION, NORMOCEPHALIC - Eye Exam Eye Exam: EOMI, Normal appearance, PERRL Pupil Exam: NORMAL ACCOMODATION, PERRL - ENT Exam ENT Exam: Mucous Membranes Moist, Normal Exam - Neck Exam Neck Exam: Full ROM, Normal Inspection. absent: Lymphadenopathy - Respiratory Exam Respiratory Exam: Decreased Breath Sounds - Cardiovascular Exam Cardiovascular Exam: REGULAR RHYTHM, +S1, +S2 - GI/Abdominal Exam GI & Abdominal Exam: Soft, Diminished Bowel Sounds - Rectal Exam Rectal Exam: Deferred
[2017-05-02] MEDS: Albuterol-Ipratrop 3 mg / 0.5 (3 ml) UD INH SCH ×4 (01:05→19:35)
[2017-05-02] MEDS: Promethazine DM 6.25 mg-15 mg/5 ml Syrup PO PRN ×2 (04:04→17:20)
[2017-05-02] MEDS: MethylPREDNISolone 40 mg Vial IVP SCH ×2 (06:01→17:20)
[2017-05-02] MEDS: Fluticasone-Salmeterol 250-50mcg Diskus INH SCH ×2 (08:10→19:35)
[2017-05-02] MEDS: Pantoprazole 40 mg EC Tab PO SCH (09:30)
[2017-05-02] MEDS: Enoxaparin 40 mg Syringe SC SCH (09:31)
--- NOTE | 2017-05-02 15:39 | CP.PCM.PN ---
Subjective - Date & Time of Evaluation Date of Evaluation: 05/02/17 Time of Evaluation: 07:00 - Subjective Subjective: clinically same Objective - Vital Signs/Intake and Output Vital Signs (last 24 hours): Temp Pulse Resp BP Pulse Ox 98.1 F 67 20 144/88 95 05/02/17 08:40 05/02/17 08:40 05/02/17 08:40 05/02/17 09:30 05/02/17 08:40 Intake and Output: 05/02/17 05/02/17 06:59 18:59 Intake Total 840 Balance 840 - Medications Medications: Current Medications Acetaminophen (Tylenol 325mg Tab) 650 mg PO Q6 PRN PRN Reason: Fever >100.4 F Last Admin: 05/01/17 16:56 Dose: 650 mg Albuterol/Ipratropium (Duoneb 3 Mg/0.5 Mg (3 Ml) Ud) 3 ml INH RQ6 [facility] Last Admin: 05/02/17 13:34 Dose: Not Given Amlodipine Besylate (Norvasc) 10 mg PO DAILY [facility] Last Admin: 05/02/17 09:30 Dose: 10 mg Clonidine HCl (Catapres) 0.1 mg PO TID [facility] Last Admin: 05/02/17 13:05 Dose: 0.1 mg Diphenhydramine HCl (Benadryl) 25 mg PO Q6 PRN PRN Reason: Itching / Pruritus Last Admin: 04/30/17 12:18 Dose: 25 mg Docusate Sodium (Colace) 100 mg PO TID [facility] Last Admin: 05/02/17 13:05 Dose: Not Given Enoxaparin Sodium (Lovenox) 40 mg SC DAILY [facility] Last Admin: 05/02/17 09:31 Dose: 40 mg Furosemide (Lasix) 20 mg PO DAILY [facility] Last Admin: 05/02/17 09:30 Dose: 20 mg Ceftriaxone Sodium 1 gm/ (Sodium Chloride) 100 mls @ 100 mls/hr IVPB Q12H [facility] Last Admin: 05/02/17 11:20 Dose: 100 mls/hr Loratadine (Claritin) 10 mg PO DAILY [facility] Last Admin: 05/02/17 09:31 Dose: 10 mg Losartan Potassium (Cozaar) 100 mg PO DAILY [facility] Last Admin: 05/02/17 09:31 Dose: 100 mg Methylprednisolone (Solu-Medrol) 40 mg IVP Q12H [facility] Last Admin: 05/02/17 06:01 Dose: 40 mg Montelukast Sodium (Singulair) 10 mg PO DAILY [facility] Last Admin: 05/02/17 09:31 Dose: 10 mg Pantoprazole Sodium (Protonix Ec Tab) 40 mg PO DAILY [facility] Last Admin: 05/02/17 09:30 Dose: 40 mg Promethazine HCl/Dextromethorphan (Phenergan Dm Syrup) 5 ml PO Q6H PRN PRN Reason: Cough Last Admin: 05/02/17 04:04 Dose: 5 ml Fluticasone/Salmeterol (Advair Diskus 250/50) 1 puff INH RQ12 [facility] Last Admin: 05/02/17 08:10 Dose: 1 puff - Labs Labs: 05/01/17 07:54 05/01/17 07:54 PT 12.2 SECONDS (9.7-12.2) 04/25/17 21:06 INR 1.1 04/25/17 21:06 APTT 31 SECONDS (21-34) 04/25/17 21:06
--- NOTE | 2017-05-02 20:30 | CP.PCM.PN ---
Subjective - Date & Time of Evaluation Date of Evaluation: 05/02/17 Time of Evaluation: 20:30 - Subjective Subjective: CHIEF COMPLAINTS TODAY : AFEBRILE feeling better "states I can do without O2 RX." ROS. HEENT : N. Resp : +VE COUGH / LESS WHEEZING , NO pleuritic CP ,or hemoptysis Cardio : No anginal CP, PND, orthopnea, palpitation GI : No abd.pain, n/v ,diarrhea or GI bleeding . RN BSN : No headache, vertigo, focal deficit. Musculoskel : No joint swelling , Derm : No rash Psych : Normal affect. Ext : No swelling ,calf pain PE. Pt. is alert awake in no distress. V.S As noted in the chart Head ,ear nose,throat and eyes : Normal. Neck : Supple with normal carotids. Lungs: DECREASED B/L WHEEZING Heart : S1 & S2 normal with S4. No murmur. Abd : Soft non tender with normal bowel sounds. Neuro : Moves all ext. with no localized deficit. Ext : No edema with intact pulses.Non tender calves Derm : No rashes or decubitus ulcer. LABS/RADIOLOGY: REVIEWED Blood cultures negative to date Sputum Gram stain -rare gram-positive cocci in pairs, few WBCs. ( NORMAL ALLIE ) chest x-ray 04/27/17 diffuse right-sided airspace disease ASSESSMENT; RLL PNEUMONIA ?CAP VS ATYPICAL. exacerbation of asthma Dyspnea Hypertension Morbid obesity. /PLAN : continue IV Rocephin 1 g every 12 hourly.04/25/17 Continue Zithromax 500 mg once a day daily. 04/25/17. Follow up CXR IN AM DISCUSSED W RN. DECREASE IV Solu-Medrol 40 mg every 12 hourly as per pulmonary. .Pulmonary toilet. Objective - Vital Signs/Intake and Output Vital Signs (last 24 hours): Temp Pulse Resp BP Pulse Ox 98.1 F 70 18 112/72 98 05/02/17 15:54 05/02/17 15:54 05/02/17 15:54 05/02/17 15:54 05/02/17 15:54 Intake and Output: 05/02/17 05/03/17 18:59 06:59 Intake Total 840 Balance 840 - Medications Medications: Current Medications Acetaminophen (Tylenol 325mg Tab) 650 mg PO Q6 PRN PRN Reason: Fever >100.4 F Last Admin: 05/01/17 16:56 Dose: 650 mg Albuterol/Ipratropium (Duoneb 3 Mg/0.5 Mg (3 Ml) Ud) 3 ml INH RQ6 [facility] Last Admin: 05/02/17 19:35 Dose: Not Given Amlodipine Besylate (Norvasc) 10 mg PO DA[facility] Last Admin: 05/02/17 09:30 Dose: 10 mg Clonidine HCl (Catapres) 0.1 mg PO TID [facility] Last Admin: 05/02/17 17:20 Dose: 0.1 mg Diphenhydramine HCl (Benadryl) 25 mg PO Q6 PRN PRN Reason: Itching / Pruritus Last Admin: 04/30/17 12:18 Dose: 25 mg Docusate Sodium (Colace) 100 mg PO TID [facility] Last Admin: 05/02/17 17:20 Dose: 100 mg Enoxaparin Sodium (Lovenox) 40 mg SC DAILY [facility] Last Admin: 05/02/17 09:31 Dose: 40 mg Furosemide (Lasix) 20 mg PO DAILY [facility] Last Admin: 05/02/17 09:30 Dose: 20 mg Ceftriaxone Sodium 1 gm/ (Sodium Chloride) 100 mls @ 100 mls/hr IVPB Q12H [facility] Last Admin: 05/02/17 11:20 Dose: 100 mls/hr Loratadine (Claritin) 10 mg PO DAILY [facility] Last Admin: 05/02/17 09:31 Dose: 10 mg Losartan Potassium (Cozaar) 100 mg PO DAILY [facility] Last Admin: 05/02/17 09:31 Dose: 100 mg Methylprednisolone (Solu-Medrol) 40 mg IVP Q12H [facility] Last Admin: 05/02/17 17:20 Dose: 40 mg Montelukast Sodium (Singulair) 10 mg PO DAILY [facility] Last Admin: 05/02/17 09:31 Dose: 10 mg Pantoprazole Sodium (Protonix Ec Tab) 40 mg PO DAILY [facility] Last Admin: 05/02/17 09:30 Dose: 40 mg Promethazine HCl/Dextromethorphan (Phenergan Dm Syrup) 5 ml PO Q6H PRN PRN Reason: Cough Last Admin: 05/02/17 17:20 Dose: 5 ml Fluticasone/Salmeterol (Advair Diskus 250/50) 1 puff INH RQ12 [facility] Last Admin: 05/02/17 19:35 Dose: Not Given - Labs Labs: 05/01/17 07:54 05/01/17 07:54 PT 12.2 SECONDS (9.7-12.2) 04/25/17 21:06 INR 1.1 04/25/17 21:06 APTT 31 SECONDS (21-34) 04/25/17 21:06 Assessment and Plan (1) Asthma exacerbation Status: Acute (2) Dyspnea Status: Acute (3) HTN (hypertension) Status: Acute (4) Morbid obesity Status: Acute
[2017-05-02 23:43] VITALS: RESP 20
[2017-05-03] MEDS: Albuterol-Ipratrop 3 mg / 0.5 (3 ml) UD INH SCH ×4 (01:17→14:39)
[2017-05-03] MEDS: MethylPREDNISolone 40 mg Vial IVP SCH (05:04)
[2017-05-03] MEDS: Fluticasone-Salmeterol 250-50mcg Diskus INH SCH (08:17)
--- NOTE | 2017-05-03 09:02 | RAD ---
HISTORY: repeat COMPARISON: 04/28/2017 TECHNIQUE: Chest PA and lateral FINDINGS: LUNGS: Left lung appears clear Right infrahilar peribronchial thickening prior coalescent opacities have decreased -increased aeration partial in is inferred. Minimal residual peribronchial thickening and/or atelectatic changes the right lung base are still possible. PLEURA: No significant pleural effusion identified. No pneumothorax apparent. CARDIOVASCULAR: Normal. OSSEOUS STRUCTURES: No significant abnormalities. VISUALIZED UPPER ABDOMEN: Normal. OTHER FINDINGS: None. IMPRESSION: Interval partial clearing/ interval improved aeration of prior right peribronchial thickening/coalescent opacities-right lung base Residual changes present not apparent on a 07/12/2016 study
[2017-05-03] MEDS: Promethazine DM 6.25 mg-15 mg/5 ml Syrup PO PRN (09:34)
[2017-05-03] MEDS: Enoxaparin 40 mg Syringe SC SCH (09:34)
[2017-05-03] MEDS: Pantoprazole 40 mg EC Tab PO SCH (09:35)
--- NOTE | 2017-05-03 09:47 | CP.PCM.PN ---
Subjective - Date & Time of Evaluation Date of Evaluation: 05/03/17 Time of Evaluation: 09:37 - Subjective Subjective: Progress note for Dr. Ortiz's Service Patient was seen and examined at bedside. She reports improvement in her breathing. Still wheezing. No fevers. Short of breath only with activity. Cough has resolved and no longer productive. She went for a CXR this morning to evaluate for improvement. Objective - Vital Signs/Intake and Output Vital Signs (last 24 hours): Temp Pulse Resp BP Pulse Ox 98.2 F 66 20 132/78 97 05/03/17 07:47 05/03/17 07:47 05/03/17 07:47 05/03/17 09:34 05/03/17 07:47 Intake and Output: 05/03/17 05/03/17 06:59 18:59 Intake Total 350 Balance 350 - Medications Medications: Current Medications Acetaminophen (Tylenol 325mg Tab) 650 mg PO Q6 PRN PRN Reason: Fever >100.4 F Last Admin: 05/01/17 16:56 Dose: 650 mg Albuterol/Ipratropium (Duoneb 3 Mg/0.5 Mg (3 Ml) Ud) 3 ml INH RQ6 [facility] Last Admin: 05/03/17 08:17 Dose: Not Given Amlodipine Besylate (Norvasc) 10 mg PO DAILY [facility] Last Admin: 05/03/17 09:35 Dose: 10 mg Clonidine HCl (Catapres) 0.1 mg PO TID [facility] Last Admin: 05/03/17 09:35 Dose: 0.1 mg Diphenhydramine HCl (Benadryl) 25 mg PO Q6 PRN PRN Reason: Itching / Pruritus Last Admin: 04/30/17 12:18 Dose: 25 mg Docusate Sodium (Colace) 100 mg PO TID [facility] Last Admin: 05/03/17 09:34 Dose: 100 mg Enoxaparin Sodium (Lovenox) 40 mg SC DAILY [facility] Last Admin: 05/03/17 09:34 Dose: 40 mg Furosemide (Lasix) 20 mg PO DAILY [facility] Last Admin: 05/03/17 09:34 Dose: 20 mg Ceftriaxone Sodium 1 gm/ (Sodium Chloride) 100 mls @ 100 mls/hr IVPB Q12H [facility] Last Admin: 05/02/17 23:48 Dose: 100 mls/hr Loratadine (Claritin) 10 mg PO DAILY [facility] Last Admin: 05/03/17 09:34 Dose: 10 mg Losartan Potassium (Cozaar) 100 mg PO DAILY [facility] Last Admin: 05/03/17 09:35 Dose: 100 mg Methylprednisolone (Solu-Medrol) 40 mg IVP Q12H [facility] Last Admin: 05/03/17 05:04 Dose: 40 mg Montelukast Sodium (Singulair) 10 mg PO DAILY [facility] Last Admin: 05/03/17 09:34 Dose: 10 mg Pantoprazole Sodium (Protonix Ec Tab) 40 mg PO DAILY [facility] Last Admin: 05/03/17 09:35 Dose: 40 mg Promethazine HCl/Dextromethorphan (Phenergan Dm Syrup) 5 ml PO Q6H PRN PRN Reason: Cough Last Admin: 05/03/17 09:34 Dose: 5 ml Fluticasone/Salmeterol (Advair Diskus 250/50) 1 puff INH RQ12 [facility] Last Admin: 05/03/17 08:17 Dose: 1 puff - Labs Labs: 05/01/17 07:54 05/01/17 07:54 PT 12.2 SECONDS (9.7-12.2) 04/25/17 21:06 INR 1.1 04/25/17 21:06 APTT 31 SECONDS (21-34) 04/25/17 21:06 - Head Exam Head Exam: ATRAUMATIC, NORMOCEPHALIC - Eye Exam Eye Exam: EOMI - ENT Exam ENT Exam: Mucous Membranes Moist - Respiratory Exam Respiratory Exam: Wheezes (mild), NORMAL BREATHING PATTERN (with coughing). absent: Respiratory Distress - Cardiovascular Exam Cardiovascular Exam: REGULAR RHYTHM, +S1, +S2 - GI/Abdominal Exam GI & Abdominal Exam: Soft. absent: Tenderness - Neurological Exam Neurological Exam: Alert, Awake, Oriented x3 - Skin Skin Exam: Dry, Warm Assessment and Plan - Assessment and Plan (Free Text) Plan: COPD/asthma exacerbation SOB only with ambulating Duonebs RQ6 Claritin 10mg PO daily SoluMedrol 40mg IVP [id number] Singulair 10mg PO daily Advair 250/50- [address] Alva consulted, help appreciated - patient will need sleep study outpatient to evaluate for sleep apnea Chest X ray on 04/25 showed a limited study - Repeat chest X ray 04/27 - COPD confluent airspace disease in the right lower lobe could represent atelectasis or pneumonia, follow up advised Repeat CXR 05/03- interval partial clearing/interval improvement f/u am labs Pneumonia Tylenol prn fevers Phenegran DM Dr. Marie consulted- recs appreciated repeat CXR as detailed above Continue abx Zithromax 500mg PO daily (5 days completed 05/02) Ceftriaxone 1gram IVPB Q12 hours (active) ESR/CRP elevated but improved Follow up sputum gram stain 05/03- few WBCs gram stain 04/28- normal oral lisa Patient was afebrile for >24hrs Influenza negative legionella, mycoplasma negative Leg Edema Lasix 20mg PO daily Hypertension- Controlled Norvasc 10mg PO daily Clonidine 0.1 mg PO TID Cozaar 100mg PO daily Morbid Obesity Encouraged to lose weight Prophylactic Measures Benadryl prn pruritus Protonix 40mg PO daily Lovenox 40mg SC daily This patient will need a sleep study once she is discharged. Case Discussed with Dr. Ortiz. All management per Dr. Philly Ortiz.
[2017-05-03 16:34] VITALS: BP 120/76; PULSE 76; TEMP 98.1; O2SAT 96
--- NOTE | 2017-05-03 17:23 | CP.PCM.PN ---
Subjective - Date & Time of Evaluation Date of Evaluation: 05/03/17 Time of Evaluation: 10:00 - Subjective Subjective: patient seen and examined. breathing and cough much improved Afebrile To be discharged home today Continue rescue inhaler as needed Continue inhaled steroid Follow-up with pulmonary Objective - Vital Signs/Intake and Output Vital Signs (last 24 hours): Temp Pulse Resp BP Pulse Ox 98.1 F 76 20 120/76 96 05/03/17 16:00 05/03/17 16:00 05/03/17 16:00 05/03/17 16:00 05/03/17 16:00 Intake and Output: 05/03/17 05/03/17 06:59 18:59 Intake Total 850 Balance 850 - Medications Medications: Current Medications Acetaminophen (Tylenol 325mg Tab) 650 mg PO Q6 PRN PRN Reason: Fever >100.4 F Last Admin: 05/01/17 16:56 Dose: 650 mg Albuterol/Ipratropium (Duoneb 3 Mg/0.5 Mg (3 Ml) Ud) 3 ml INH RQ6 [facility] Last Admin: 05/03/17 14:39 Dose: Not Given Amlodipine Besylate (Norvasc) 10 mg PO DAILY [facility] Last Admin: 05/03/17 09:35 Dose: 10 mg Clonidine HCl (Catapres) 0.1 mg PO TID [facility] Last Admin: 05/03/17 13:25 Dose: 0.1 mg Diphenhydramine HCl (Benadryl) 25 mg PO Q6 PRN PRN Reason: Itching / Pruritus Last Admin: 04/30/17 12:18 Dose: 25 mg Docusate Sodium (Colace) 100 mg PO TID [facility] Last Admin: 05/03/17 13:25 Dose: 100 mg Furosemide (Lasix) 20 mg PO DAILY [facility] Last Admin: 05/03/17 09:34 Dose: 20 mg Ceftriaxone Sodium 1 gm/ (Sodium Chloride) 100 mls @ 100 mls/hr IVPB Q12H [facility] Last Admin: 05/03/17 11:10 Dose: 100 mls/hr Loratadine (Claritin) 10 mg PO DAILY [facility] Last Admin: 05/03/17 09:34 Dose: 10 mg Losartan Potassium (Cozaar) 100 mg PO DAILY [facility] Last Admin: 05/03/17 09:35 Dose: 100 mg Methylprednisolone (Solu-Medrol) 40 mg IVP Q12H [facility] Last Admin: 05/03/17 05:04 Dose: 40 mg Montelukast Sodium (Singulair) 10 mg PO DAILY [facility] Last Admin: 05/03/17 09:34 Dose: 10 mg Pantoprazole Sodium (Protonix Ec Tab) 40 mg PO DAILY [facility] Last Admin: 05/03/17 09:35 Dose: 40 mg Promethazine HCl/Dextromethorphan (Phenergan Dm Syrup) 5 ml PO Q6H PRN PRN Reason: Cough Last Admin: 05/03/17 09:34 Dose: 5 ml Fluticasone/Salmeterol (Advair Diskus 250/50) 1 puff INH RQ12 [facility] Last Admin: 05/03/17 08:17 Dose: 1 puff - Labs Labs: 05/01/17 07:54 05/01/17 07:54 PT 12.2 SECONDS (9.7-12.2) 04/25/17 21:06 INR 1.1 04/25/17 21:06 APTT 31 SECONDS (21-34) 04/25/17 21:06 Assessment and Plan (1) COPD exacerbation Status: Acute
--- NOTE | 2017-05-03 17:34 | CP.PCM.PN ---
Subjective - Date & Time of Evaluation Date of Evaluation: 05/03/17 Time of Evaluation: 07:20 - Subjective Subjective: clinically same Objective - Vital Signs/Intake and Output Vital Signs (last 24 hours): Temp Pulse Resp BP Pulse Ox 98.1 F 76 20 120/76 96 05/03/17 16:00 05/03/17 16:00 05/03/17 16:00 05/03/17 16:00 05/03/17 16:00 Intake and Output: 05/03/17 05/03/17 06:59 18:59 Intake Total 850 Balance 850 - Medications Medications: Current Medications Acetaminophen (Tylenol 325mg Tab) 650 mg PO Q6 PRN PRN Reason: Fever >100.4 F Last Admin: 05/01/17 16:56 Dose: 650 mg Albuterol/Ipratropium (Duoneb 3 Mg/0.5 Mg (3 Ml) Ud) 3 ml INH RQ6 [facility] Last Admin: 05/03/17 14:39 Dose: Not Given Amlodipine Besylate (Norvasc) 10 mg PO DAILY [facility] Last Admin: 05/03/17 09:35 Dose: 10 mg Clonidine HCl (Catapres) 0.1 mg PO TID [facility] Last Admin: 05/03/17 17:20 Dose: 0.1 mg Diphenhydramine HCl (Benadryl) 25 mg PO Q6 PRN PRN Reason: Itching / Pruritus Last Admin: 04/30/17 12:18 Dose: 25 mg Docusate Sodium (Colace) 100 mg PO TID [facility] Last Admin: 05/03/17 17:20 Dose: 100 mg Furosemide (Lasix) 20 mg PO DAILY [facility] Last Admin: 05/03/17 09:34 Dose: 20 mg Ceftriaxone Sodium 1 gm/ (Sodium Chloride) 100 mls @ 100 mls/hr IVPB Q12H [facility] Last Admin: 05/03/17 11:10 Dose: 100 mls/hr Loratadine (Claritin) 10 mg PO DAILY [facility] Last Admin: 05/03/17 09:34 Dose: 10 mg Losartan Potassium (Cozaar) 100 mg PO DAILY [facility] Last Admin: 05/03/17 09:35 Dose: 100 mg Methylprednisolone (Solu-Medrol) 40 mg IVP Q12H [facility] Last Admin: 05/03/17 05:04 Dose: 40 mg Montelukast Sodium (Singulair) 10 mg PO DAILY [facility] Last Admin: 05/03/17 09:34 Dose: 10 mg Pantoprazole Sodium (Protonix Ec Tab) 40 mg PO DAILY [facility] Last Admin: 05/03/17 09:35 Dose: 40 mg Promethazine HCl/Dextromethorphan (Phenergan Dm Syrup) 5 ml PO Q6H PRN PRN Reason: Cough Last Admin: 05/03/17 09:34 Dose: 5 ml Fluticasone/Salmeterol (Advair Diskus 250/50) 1 puff INH RQ12 [facility] Last Admin: 05/03/17 08:17 Dose: 1 puff - Labs Labs: 05/01/17 07:54 05/01/17 07:54 PT 12.2 SECONDS (9.7-12.2) 04/25/17 21:06 INR 1.1 04/25/17 21:06 APTT 31 SECONDS (21-34) 04/25/17 21:06
== END 2017-05-03 18:55 | disposition home or self-care (01) | DRG 88 ==
LOC: C.ER 19:40 → C.9E 21:57 → C.3T 22:53
PROVIDERS: ADMIT Internal Medicine Nephrology; ATTEND Internal Medicine Nephrology
DX: J44.1 Chronic obstructive pulmonary disease with (acute) exacerbation (principal); J18.9 Pneumonia, unspecified organism; E66.01 Morbid (severe) obesity due to excess calories; J45.901 Unspecified asthma with (acute) exacerbation; Z68.43 Body mass index [BMI] 50.0-59.9, adult; J44.0 Chronic obstructive pulmonary disease with (acute) lower respiratory infection; I10 Essential (primary) hypertension; R60.0 Localized edema; Z87.01 Personal history of pneumonia (recurrent); Z23 Encounter for immunization

== ENCOUNTER 2017-06-16 21:24 | Inpatient (IN) | payer MEDICAID ==
--- NOTE | 2017-06-16 23:10 | C.PDOC ---
History Of Present Illness 51 year old female presents to the ER complaining of chest pain for the past few days. Pain is localized to the anterior chest wall area, and radiates to the left upper extremity. Denies any shortness of breath, nausea, or vomiting. Time Seen by Provider: 06/16/17 23:00 Chief Complaint (Nursing): Chest Pain History Per: Patient History/Exam Limitations: no limitations Onset/Duration Of Symptoms: Days Current Symptoms Are (Timing): Still Present Modifying Factors: None Exacerbating Factors: None Recent travel outside of the [place]: No Past Medical History Reviewed: Historical Data, Nursing Documentation, Vital Signs Vital Signs: Last Vital Signs Temp 98.6 F 06/16/17 21:51 Pulse 72 06/16/17 21:51 Resp 20 06/16/17 21:51 BP 109/72 06/16/17 21:51 Pulse Ox 97 06/17/17 04:44 - Medical History PMH: Anxiety, Arthritis, Asthma, Bipolar Disorder, COPD, Depression, HTN, Peripheral Edema, Pneumonia (2016) Denies: Chronic Kidney Disease Surgical History: Family History: States: Unknown Family Hx - Social History Hx Alcohol Use: No Hx Substance Use: No - Immunization History Hx Tetanus Toxoid Vaccination: No Hx Influenza Vaccination: No Hx Pneumococcal Vaccination: No Review Of Systems Except As Marked, All Systems Reviewed And Found Negative. Cardiovascular: Positive for: Chest Pain Respiratory: Negative for: Shortness of Breath Gastrointestinal: Negative for: Nausea, Vomiting Musculoskeletal: Positive for: Arm Pain (left) Physical Exam - Physical Exam Appears: Non-toxic, No Acute Distress Skin: Normal Color, Warm, Dry Head: Atraumatic, Normacephalic Eye(s): bilateral: Normal Inspection, PERRL, EOMI Oral Mucosa: Moist Neck: Normal ROM, Supple Chest: Symmetrical Cardiovascular: Rhythm Regular, No Murmur Respiratory: No Rales, No Rhonchi, Wheezing (bilaterally) Gastrointestinal/Abdominal: Normal Exam, Soft, No Tenderness Back: Normal Inspection, No Vertebral Tenderness Extremity: No Tenderness, No Swelling Extremity: Bilateral: Atraumatic, Normal Color And Temperature, Normal ROM Neurological/Psych: Oriented x3, Normal Speech Gait: Steady ED Course And Treatment - Laboratory Results Result Diagrams: 06/16/17 23:15 06/16/17 23:15 ECG: Interpreted By Me, Viewed By Me ECG Rhythm: Sinus Rhythm, 1st Degree HB O2 Sat by Pulse Oximetry: 97 (RA) Pulse Ox Interpretation: Normal - CT Scan/US CTA chest Other Rad Studies (CT/US): Read By Radiologist, Radiology Report Reviewed CT/US Interpretation: FINDINGS: LIMITATIONS: Mild respiratory motion artifact. PULMONARY ARTERIES: Main pulmonary artery segment is mildly enlarged, measuring 3.3 cm in. transverse dimensions (normal less than 3 cm), a finding which can be seen with pulmonary. hypertension. Exam is somewhat limited for the detection of pulmonary emboli secondary to. respiratory motion. Allowing for this, no definite pulmonary emboli are seen. AORTA: Exam is nondiagnostic for the detection of aortic dissection because of suboptimal. enhancement of the aorta. No evidence of thoracic aortic aneurysm. LUNGS: Stable appearance of a 3 mm noncalcified nodule in the right upper lobe posteriorly, image. 67 of series 603. Stable appearance of a 3 mm noncalcified nodule in the left upper lobe posteriorly,. image 58 of series 603. In low-risk patients (minimal or absent history of smoking or other known risk. factors), no follow-up is necessary. For high-risk patients (history of smoking or other known risk. factors), an optional chest CT at 12 months could be performed. No evidence of significant focal. consolidation/infiltrate in the lungs. No evidence of diffuse pulmonary vascular congestion. PLEURAL SPACE: No pneumothorax or pleural effusions seen. HEART: Heart again appears mildly enlarged. No evidence of significant pericardial effusion. BONES/JOINTS: No acute bony abnormality identified. SOFT TISSUES: No acute abnormality of the visualized soft tissues seen. LYMPH NODES: No evidence of diffuse lymphadenopathy. IMPRESSION: - No evidence of pulmonary embolism or other significant acute abnormality in the chest. - Stable findings compared to a prior CT of 2016. - Mild enlargement of the main pulmonary artery segment, a finding which can be seen with. pulmonary hypertension. Recommend clinical correlation. - Incidental subcentimeter pumonary nodules. See recommendations above. - See above for remaining findings. Medical Decision Making Medical Decision Making: Time: 23:08 Initial Plan: * EKG * CMP * Troponin I * CBC * D dimer * Chest x-ray * Duoneb 3 ml INH * Peak Flow pre/post treatment D dimer elevated. Will order CTA Chest. Disposition Discussed With : Nithin Ortiz Doctor Will See Patient In The: Hospital Counseled Patient/Family Regarding: Diagnosis - Disposition Disposition: HOSPITALIZED Disposition Time: 04:43 Condition: STABLE Forms: [facility] (Scottish) - POA Present On Arrival: None - Clinical Impression Clinical Impression: Chest pain - Scribe Statement The provider has reviewed the documentation as recorded by the Lang Franklin Provider Attestation: All medical record entries made by the Lang were at my direction and personally dictated by me. I have reviewed the chart and agree that the record accurately reflects my personal performance of the history, physical exam, medical decision making, and the department course for this patient. I have also personally directed, reviewed, and agree with the discharge instructions and disposition.
[2017-06-16] MEDS ORDERED: Albuterol-Ipratrop 3 mg / 0.5 (3 ml) UD INH STA (23:17)
[2017-06-16 23:19] LABS: BASO # 0.1 K/uL (0.0-0.2); BASO % 1.3 % (0.0-2.0); EOS # 0.4 K/uL (0.0-0.7); EOS % 5.7 % (0.0-4.0); LYMPH # 2.4 K/uL (1.0-4.3); LYMPH % 36.6 % (20.0-40.0); MEAN CELL VOLUME 84.9 fL (81.0-99.0); MEAN CORPUSCULAR HEMOGLOBIN 28.4 pg (27.0-31.0); MEAN CORPUSCULAR HGB CONC 33.5 g/dL (33.0-37.0); MONO # 0.4 K/uL (0.0-0.8); MONO % 6.2 % (0.0-10.0); NEUT # 3.3 K/uL (1.8-7.0); NEUT % 50.2 % (50.0-75.0); RBC 4.57 Mil/uL (3.80-5.20); RED CELL DISTRIBUTION WIDTH 14.8 % (11.5-14.5); WHITE BLOOD COUNT 6.6 K/uL (4.8-10.8)
[2017-06-16 23:32] LABS: ALB/GLOB RATIO 1.2 (1.0-2.1); ALBUMIN 4.3 g/dL (3.5-5.0); ALT/SGPT 30 U/L (9-52); AST/SGOT 22 U/L (14-36); BLOOD UREA NITROGEN 14 mg/dL (7-17); CALCIUM 8.7 mg/dl (8.6-10.4); GFR AFRICAN-AMERICAN > 60; GFR NON-AFRICAN AMERICAN > 60
[2017-06-17] MEDS ORDERED: Albuterol-Ipratrop 3 mg / 0.5 (3 ml) UD ONE ×3 (00:35→13:34)
[2017-06-17] MEDS ORDERED: Iodixanol 320 MG/ML 100 ML BOTTLE IV ONE (01:38)
[2017-06-17 01:42] LABS: SQUAMOUS EPITHIAL 2 /hpf (0-5); URINE BILIRUBIN NEGATIVE (NEGATIVE); URINE BLOOD NEGATIVE (NEGATIVE); URINE CLARITY Clear (Clear); URINE COLOR Yellow (YELLOW); URINE GLUCOSE (UA) NORMAL (Normal); URINE NITRATE NEGATIVE (NEGATIVE); URINE PROTEIN 1+ mg/dL (NEGATIVE)
[2017-06-17 01:51] LABS: URINE LEUKOCYTE ESTERASE TRACE Leu/uL (Negative)
--- NOTE | 2017-06-17 04:02 | CT ---
EXAM: CT Angiography Chest With Intravenous Contrast EXAM DATE/TIME: 06/17/2017 12:33 AM CLINICAL HISTORY: 51 years old, female; Pain; Chest pain; Patient HX: 04-06-17 images sent; Additional info: Chest pain/elevated d-dimer TECHNIQUE: Axial computed tomographic angiography images of the chest with intravenous contrast using pulmonary embolism protocol. All CT scans at this facility use one or more dose reduction techniques, viz.: automated exposure control; ma/kV adjustment per patient size (including targeted exams where dose is matched to indication; i.e. head); or iterative reconstruction technique. MIP reconstructed images were created and reviewed. Coronal and sagittal reformatted images were created and reviewed. CONTRAST: 100 mL of [id number] administered intravenously. COMPARISON: Prior CT chest of 2017-04-06 FINDINGS: LIMITATIONS: Mild respiratory motion artifact. PULMONARY ARTERIES: Main pulmonary artery segment is mildly enlarged, measuring 3.3 cm in transverse dimensions (normal less than 3 cm), a finding which can be seen with pulmonary hypertension. Exam is somewhat limited for the detection of pulmonary emboli secondary to respiratory motion. Allowing for this, no definite pulmonary emboli are seen. AORTA: Exam is nondiagnostic for the detection of aortic dissection because of suboptimal enhancement of the aorta. No evidence of thoracic aortic aneurysm. LUNGS: Stable appearance of a 3 mm noncalcified nodule in the right upper lobe posteriorly, image 67 of series 603. Stable appearance of a 3 mm noncalcified nodule in the left upper lobe posteriorly, image 58 of series 603. In low-risk patients (minimal or absent history of smoking or other known risk factors), no follow-up is necessary. For high-risk patients (history of smoking or other known risk factors), an optional chest CT at 12 months could be performed. No evidence of significant focal consolidation/infiltrate in the lungs. No evidence of diffuse pulmonary vascular congestion. PLEURAL SPACE: No pneumothorax or pleural effusions seen. HEART: Heart again appears mildly enlarged. No evidence of significant pericardial effusion. BONES/JOINTS: No acute bony abnormality identified. SOFT TISSUES: No acute abnormality of the visualized soft tissues seen. LYMPH NODES: No evidence of diffuse lymphadenopathy. IMPRESSION: - No evidence of pulmonary embolism or other significant acute abnormality in the chest. - Stable findings compared to a prior CT of 04/06/2017. - Mild enlargement of the main pulmonary artery segment, a finding which can be seen with pulmonary hypertension. Recommend clinical correlation. - Incidental subcentimeter pumonary nodules. See recommendations above. - See above for remaining findings.
[2017-06-17 10:30] LABS: CK-MB 0.31 ng/mL (0.0-3.38)
--- NOTE | 2017-06-17 11:14 | RAD ---
PROCEDURE: CHEST RADIOGRAPH, 1 VIEW HISTORY: chest pain COMPARISON: Comparison chest 05/03/2017. FINDINGS: LUNGS: Clear. PLEURA: No pneumothorax or pleural fluid seen. CARDIOVASCULAR: Normal. OSSEOUS STRUCTURES: No significant abnormalities. VISUALIZED UPPER ABDOMEN: Normal. OTHER FINDINGS: None. IMPRESSION: No active disease.
[2017-06-17] MEDS ORDERED: DiphenhydrAMINE 50 mg/ml Inj IVP STA (12:19)
--- NOTE | 2017-06-17 12:27 | CP.PCM.PN ---
<Suzi Young - Last Filed: 06/17/17 12:45> Subjective - Date & Time of Evaluation Date of Evaluation: 06/17/17 Time of Evaluation: 12:22 - Subjective Subjective: PGY2 progress note for Dr. Ortiz 51 year old female with past medical history of HTN, asthma, osteoarthiritis and morbid obesity presents to hospital for chest pain. Patient was seen and examined at bedside in the morning. Patient states that she gets recurrent chest pain diffusely. However, last night chest pain was very severe, felt sharp and radiated first to substernal region and then to left side and left shoulder. Patient had chest pain similar to this in the past and [facility] Denies having any cough, F/C , abd pain, N/V/D/C, SOB. PMHx; stated above Sx: 5 c sections, hernia repair meds: see EMR social; denies tobacco, ETOH or drug use Fhx: CAD in mom and sister Objective - Vital Signs/Intake and Output Vital Signs (last 24 hours): Temp Pulse Resp BP Pulse Ox 98 F 82 18 133/76 97 06/17/17 06:23 06/17/17 11:46 06/17/17 11:46 06/17/17 11:46 06/17/17 11:46 - Medications Medications: Current Medications Albuterol/Ipratropium (Duoneb 3 Mg/0.5 Mg (3 Ml) Ud) 3 ml INH RQ6 [facility] Aspirin (Aspirin) 325 mg PO DAILY [facility] Last Admin: 06/17/17 10:00 Dose: 325 mg Clonidine HCl (Catapres) 0.1 mg PO TID [facility] Diphenhydramine HCl (Benadryl) 50 mg IVP STAT STA Stop: 06/17/17 12:20 Famotidine (Pepcid) 40 mg IVP STAT STA Stop: 06/17/17 12:20 Furosemide (Lasix) 20 mg PO DAILY [facility] Losartan Potassium (Cozaar) 100 mg PO DAILY [facility] - Labs Labs: 06/16/17 23:15 06/16/17 23:15 - Constitutional Appears: Non-toxic, No Acute Distress - Head Exam Head Exam: ATRAUMATIC - ENT Exam ENT Exam: Mucous Membranes Moist - Respiratory Exam Respiratory Exam: Clear to Ausculation Bilateral. absent: Accessory Muscle Use , Rales, Rhonchi, Wheezes, Respiratory Distress - Cardiovascular Exam Cardiovascular Exam: REGULAR RHYTHM, +S1, +S2. absent: Gallop, Rubs, Murmur Additional comments: chest tender to palpation - GI/Abdominal Exam GI & Abdominal Exam: Soft, Normal Bowel Sounds. absent: Distended, Firm, Guarding, Rigid, Tenderness, Organomegaly - Extremities Exam Extremities Exam: absent: Pedal Edema, Tenderness - Neurological Exam Neurological Exam: Alert, Awake, Oriented x3 - Psychiatric Exam Psychiatric exam: Normal Affect, Normal Mood - Skin Skin Exam: Dry, Intact, Normal Color, Warm Assessment and Plan - Assessment and Plan (Free Text) Assessment: 51 year old female with past medical history of asthma, HTN and obesity is admitted for chest pain Chest pain r/o ACS Pt took Aspirin 325 at home and received Aspirin in ED Initial EKG showed type 1 heart block. Initial troponins are negative x 2 Pt was noted to have elevated D dimer in ED. CTA of chest was negative for PE Cardiology, Dr. Arroyo is consulted Last echo is from 07/2016 which showed normal LV EF and grade 1 diastolic dysfunction Will consider repeating echo Will check hgb A1c and lipid panel HTN Will hold cozaar for now due to facial swelling Continue lasixs 20 mg po qd and clonidine 0.1 mg po TID Asthma Duonebs prn CXR was negative LE swelling Will check LE dopplers Allergic reaction After pt was initially examined, nurse called about pt having urticaria and facial swelling Pt is given stat dose of benadryl 50 mg IVP, pecid 40 mg IV and solumedrol 125 mg Will hold cozaar for now Prophylaxis Lovenox and pepcid Will hold SCDs as pt has LE swelling Case discussed with attending. All managements and orders per Dr. Ortiz <Nithin Ortiz - Last Filed: 06/17/17 23:11> Objective - Vital Signs/Intake and Output Vital Signs (last 24 hours): Temp Pulse Resp BP Pulse Ox 99.2 F 92 H 20 147/71 96 06/17/17 18:23 06/17/17 22:23 06/17/17 18:23 06/17/17 22:23 06/17/17 18:23 - Medications Medications: Current Medications Acetaminophen (Tylenol 325mg Tab) 650 mg PO Q6 PRN PRN Reason: Headache Last Admin: 06/17/17 22:50 Dose: 650 mg Albuterol/Ipratropium (Duoneb 3 Mg/0.5 Mg (3 Ml) Ud) 3 ml INH RQ6 [facility] Last Admin: 06/17/17 19:48 Dose: 3 ml Amlodipine Besylate (Norvasc) 10 mg PO DAILY [facility] Last Admin: 06/17/17 22:49 Dose: 10 mg Aspirin (Aspirin) 325 mg PO DAILY [facility] Last Admin: 06/17/17 10:00 Dose: 325 mg Clonidine HCl (Catapres) 0.1 mg PO TID [facility] Last Admin: 06/17/17 22:19 Dose: Not Given Diphenhydramine HCl (Benadryl) 25 mg PO Q6 [facility] Enoxaparin Sodium (Lovenox) 40 mg SC DAILY [facility] Last Admin: 06/17/17 14:25 Dose: 40 mg Famotidine (Pepcid) 40 mg PO DAILY [facility] Last Admin: 06/17/17 14:08 Dose: Not Given Furosemide (Lasix) 20 mg PO DAILY [facility] Last Admin: 06/17/17 14:07 Dose: Not Given Home Med (Nitroglycerin [Nitrostat Sl Tab]) 0.3 mg SL DAILY [facility] Losartan Potassium (Cozaar) 100 mg PO DAILY [facility] Last Admin: 06/17/17 12:56 Dose: Not Given Montelukast Sodium (Singulair) 10 mg PO HS [facility] Last Admin: 06/17/17 22:49 Dose: 10 mg Pneumococcal Polyvalent Vaccine (Pneumovax 23 Vaccine) 0.5 ml IM .ONCE ONE Stop: 06/18/17 10:01 Rosuvastatin Calcium (Crestor) 2.5 mg PO [facility] Last Admin: 06/17/17 22:49 Dose: 2.5 mg - Labs Labs: 06/16/17 23:15 06/16/17 23:15 Attending/Attestation - Attestation I have personally seen and examined this patient.: Yes I have fully participated in the care of the patient.: Yes I have reviewed all pertinent clinical information, including history, physical exam and plan: Yes Notes (Text): 06/17/17 23:11 monitor bp michelle same
[2017-06-17] MEDS ORDERED: DiphenhydrAMINE 50 mg/ml Inj ONE (12:36)
[2017-06-17] MEDS: Albuterol-Ipratrop 3 mg / 0.5 (3 ml) UD INH SCH ×2 (13:45→19:48)
[2017-06-17] MEDS ORDERED: EPINEPHrine 1 mg/ml (1:1000) Inj SC ONE (13:57)
[2017-06-17] MEDS ORDERED: EPINEPHrine 1 mg/ml (1:1000) Inj ONE (14:16)
[2017-06-17] MEDS ORDERED: Enoxaparin 40 mg Syringe ONE (14:16)
[2017-06-17] MEDS: Enoxaparin 40 mg Syringe SC SCH (14:25)
[2017-06-17 17:38] VITALS: RESP 20
--- NOTE | 2017-06-17 17:53 | CP.PCM.HP ---
History of Present Illness - History of Present Illness History of Present Illness: 51 year old female with past medical history of HTN, asthma, osteoarthiritis and morbid obesity presents to hospital for chest pain. Patient was seen and examined at bedside in the morning. Patient states that she gets recurrent chest pain diffusely. However, last night chest pain was very severe, felt sharp and radiated first to substernal region and then to left side and left shoulder. Patient had chest pain similar to this in the past and [facility]. Denies having any cough, F/C , abd pain, N/V/D/C, SOB. Present on Admission - Present on Admission Any Indicators Present on Admission: No Past Patient History - Infectious Disease Hx of Infectious Diseases: None - Past Medical History & Family History Past Medical History?: Yes - Past Social History Smoking Status: Never Smoked - CARDIAC Hx Hypertension: Yes Hx Peripheral Edema: Yes - PULMONARY Hx Asthma: Yes Hx Chronic Obstructive Pulmonary Disease (COPD): Yes Hx Pneumonia: Yes (2016) - NEUROLOGICAL Hx Neurological Disorder: No - HEENT Hx HEENT Problems: No - RENAL Hx Chronic Kidney Disease: No - ENDOCRINE/METABOLIC Hx Endocrine Disorders: No - HEMATOLOGICAL/ONCOLOGICAL Hx Blood Disorders: No - INTEGUMENTARY Hx Dermatological Problems: No - MUSCULOSKELETAL/RHEUMATOLOGICAL Hx Arthritis: Yes - GASTROINTESTINAL Hx Gastrointestinal Disorders: No - GENITOURINARY/GYNECOLOGICAL Hx Genitourinary Disorders: No - PSYCHIATRIC Hx Anxiety: Yes Hx Bipolar Disorder: Yes Hx Depression: Yes Hx Substance Use: No - SURGICAL HISTORY Hx Surgeries: Yes Hx Section: Yes (x5) Hx Herniorrhaphy: Yes - ANESTHESIA Hx Anesthesia: Yes Hx Anesthesia Reactions: No Hx Malignant Hyperthermia: No Meds Allergies/Adverse Reactions: Allergies Allergy/AdvReac Type Severity Reaction Status Date / Time No Known Allergies Allergy Verified 04/25/17 19:55 Physical Exam - Constitutional Appears: Well - Head Exam Head Exam: ATRAUMATIC, NORMAL INSPECTION, NORMOCEPHALIC - Eye Exam Eye Exam: EOMI, Normal appearance, PERRL Pupil Exam: NORMAL ACCOMODATION, PERRL - ENT Exam ENT Exam: Mucous Membranes Moist, Normal Exam - Neck Exam Neck exam: Positive for: Normal Inspection - Respiratory Exam Respiratory Exam: Decreased Breath Sounds - Cardiovascular Exam Cardiovascular Exam: REGULAR RHYTHM, +S1, +S2 - GI/Abdominal Exam GI & Abdominal Exam: Diminished Bowel Sounds, Soft - Rectal Exam Rectal Exam: Deferred Results - Vital Signs Recent Vital Signs: Last Vital Signs Temp 98 F 06/17/17 06:23 Pulse 85 06/17/17 17:37 Resp 20 06/17/17 17:37 BP 150/59 L 06/17/17 17:37 Pulse Ox 98 06/17/17 17:37 - Labs Result Diagrams: 06/16/17 23:15 06/16/17 23:15 Labs: Laboratory Results - last 24 hr 06/16/17 06/16/17 06/16/17 23:15 23:15 23:15 WBC 6.6 RBC 4.57 Hgb 13.0 Hct 38.8 MCV 84.9 MCH 28.4 MCHC 33.5 RDW 14.8 H Plt Count 241 MPV 9.0 Neut % (Auto) 50.2 Lymph % (Auto) 36.6 [place] % (Auto) 6.2 Eos % (Auto) 5.7 H Baso % (Auto) 1.3 Neut # (Auto) 3.3 Lymph # (Auto) 2.4 [place] # (Auto) 0.4 Eos # (Auto) 0.4 Baso # (Auto) 0.1 D-Dimer, Quantitative 357 H Sodium 139 Potassium 3.8 Chloride 98 Carbon Dioxide 31 H Anion Gap 14 BUN 14 Creatinine 0.9 Est GFR ( Amer) > 60 Est GFR (Non-Af Amer) > 60 Random Glucose 100 Hemoglobin A1c Calcium 8.7 Total Bilirubin 0.6 AST 22 ALT 30 Alkaline Phosphatase 56 Total Creatine Kinase CK-MB (Mass) Troponin I < 0.0120 Total Protein 7.9 Albumin 4.3 Globulin 3.6 Albumin/Globulin Ratio 1.2 Triglycerides Cholesterol LDL Cholesterol Direct HDL Cholesterol Free T4 TSH 3rd Generation Urine Color Urine Clarity Urine pH Ur Specific [place] Urine Protein Urine Glucose (UA) Urine Ketones Urine Blood Urine Nitrate Urine Bilirubin Urine Urobilinogen Ur Leukocyte Esterase Urine WBC (Auto) Urine RBC (Auto) Ur Squamous Epith Cells Urine HCG, Qual 06/17/17 06/17/17 06/17/17 01:34 01:34 10:02 WBC RBC Hgb Hct MCV MCH MCHC RDW Plt Count MPV Neut % (Auto) Lymph % (Auto) [place] % (Auto) Eos % (Auto) Baso % (Auto) Neut # (Auto) Lymph # (Auto) [place] # (Auto) Eos # (Auto) Baso # (Auto) D-Dimer, Quantitative Sodium Potassium Chloride Carbon Dioxide Anion Gap BUN Creatinine Est GFR ( Amer) Est GFR (Non-Af Amer) Random Glucose Hemoglobin A1c Calcium Total Bilirubin AST ALT Alkaline Phosphatase Total Creatine Kinase 48 CK-MB (Mass) 0.31 Troponin I < 0.0120 Total Protein Albumin Globulin Albumin/Globulin Ratio Triglycerides Cholesterol LDL Cholesterol Direct HDL Cholesterol Free T4 TSH 3rd Generation Urine Color Yellow Urine Clarity Clear Urine pH 5.0 Ur Specific [place] 1.030 Urine Protein 1+ H Urine Glucose (UA) Normal Urine Ketones Trace Urine Blood Negative Urine Nitrate Negative Urine Bilirubin Negative Urine Urobilinogen 2.0 H Ur Leukocyte Esterase Trace H Urine WBC (Auto) 2 Urine RBC (Auto) < 1 Ur Squamous Epith Cells 2 Urine HCG, Qual Negative 06/17/17 06/17/17 06/17/17 15:36 15:36 15:36 WBC RBC Hgb Hct MCV MCH MCHC RDW Plt Count MPV Neut % (Auto) Lymph % (Auto) [place] % (Auto) Eos % (Auto) Baso % (Auto) Neut # (Auto) Lymph # (Auto) [place] # (Auto) Eos # (Auto) Baso # (Auto) D-Dimer, Quantitative Sodium Potassium Chloride Carbon Dioxide Anion Gap BUN Creatinine Est GFR ( Amer) Est GFR (Non-Af Amer) Random Glucose Hemoglobin A1c 5.7 Calcium Total Bilirubin AST ALT Alkaline Phosphatase Total Creatine Kinase CK-MB (Mass) Troponin I Total Protein Albumin Globulin Albumin/Globulin Ratio Triglycerides 173 H Cholesterol 192 LDL Cholesterol Direct 67 HDL Cholesterol 45 Free T4 0.92 TSH 3rd Generation 0.26 L Urine Color Urine Clarity Urine pH Ur Specific [place] Urine Protein Urine Glucose (UA) Urine Ketones Urine Blood Urine Nitrate Urine Bilirubin Urine Urobilinogen Ur Leukocyte Esterase Urine WBC (Auto) Urine RBC (Auto) Ur Squamous Epith Cells Urine HCG, Qual Assessment & Plan - Assessment and Plan (Free Text) Plan: Chest pain r/o ACS Pt took Aspirin 325 at home and received Aspirin in ED Initial EKG showed type 1 heart block. Initial troponins are negative x 2 Pt was noted to have elevated D dimer in ED. CTA of chest was negative for PE Cardiology, Dr. Arroyo is consulted Last echo is from 07/2016 which showed normal LV EF and grade 1 diastolic dysfunction Will consider repeating echo Will check hgb A1c and lipid panel HTN Will hold cozaar for now due to facial swelling Continue lasixs 20 mg po qd and clonidine 0.1 mg po TID Asthma Duonebs prn CXR was negative LE swelling Will check LE dopplers Allergic reaction After pt was initially examined, nurse called about pt having urticaria and facial swelling Pt is given stat dose of benadryl 50 mg IVP, pecid 40 mg IV and solumedrol 125 mg Will hold cozaar for now Prophylaxis Lovenox and pepcid Will hold SCDs as pt has LE swelling
[2017-06-17 19:32] LABS: CK-MB 0.22 ng/mL (0.0-3.38)
[2017-06-17] MEDS: Rosuvastatin Calcium 2.5 mg Tab PO SCH (22:49)
[2017-06-18] MEDS: Albuterol-Ipratrop 3 mg / 0.5 (3 ml) UD INH SCH ×4 (01:36→20:55)
[2017-06-18 07:26] LABS: BASO % 0.1 % (0.0-2.0); HEMOGLOBIN 12.3 g/dL (11.0-16.0); LYMPH # 1.1 K/uL (1.0-4.3); LYMPH % 17.4 % (20.0-40.0); MEAN CELL VOLUME 84.8 fL (81.0-99.0); MEAN CORPUSCULAR HEMOGLOBIN 28.1 pg (27.0-31.0); MEAN CORPUSCULAR HGB CONC 33.2 g/dL (33.0-37.0); MEAN PLATELET VOLUME 9.1 fL (7.2-11.7); MONO # 0.2 K/uL (0.0-0.8); MONO % 3.5 % (0.0-10.0); RBC 4.35 Mil/uL (3.80-5.20); RED CELL DISTRIBUTION WIDTH 14.7 % (11.5-14.5); WHITE BLOOD COUNT 6.4 K/uL (4.8-10.8)
[2017-06-18 07:31] LABS: INR 1.1; PROTHROMBIN TIME 11.9 SECONDS (9.7-12.2)
[2017-06-18 07:45] LABS: ALB/GLOB RATIO 1.2 (1.0-2.1); ALBUMIN 3.9 g/dL (3.5-5.0); ALT/SGPT 16 U/L (9-52); AST/SGOT 18 U/L (14-36); BLOOD UREA NITROGEN 12 mg/dL (7-17); CALCIUM 9.6 mg/dl (8.6-10.4); GFR AFRICAN-AMERICAN > 60; GFR NON-AFRICAN AMERICAN > 60
[2017-06-18] MEDS: Enoxaparin 40 mg Syringe SC SCH (09:50)
[2017-06-18] MEDS ORDERED: Pneumococcal 23-Valent Vaccine IM ONE (10:00)
[2017-06-18] MEDS ORDERED: NITROGLYCERIN 0.3 MG SL SCH (10:00)
[2017-06-18] MEDS: DiphenhydrAMINE 50 mg/ml Inj IVP SCH ×3 (12:39→23:48)
--- NOTE | 2017-06-18 15:11 | CARD ---
APPROVED REPORT EKG Measurement Heart [id number] <Conclusion> Sinus rhythm with 1st degree AV block Possible Left atrial enlargement Borderline ECG
--- NOTE | 2017-06-18 16:33 | CP.PCM.PN ---
Subjective - Date & Time of Evaluation Date of Evaluation: 06/18/17 Time of Evaluation: 09:40 - Subjective Subjective: clinically same Objective - Vital Signs/Intake and Output Vital Signs (last 24 hours): Temp Pulse Resp BP Pulse Ox 97.9 F 75 20 124/79 98 06/18/17 07:40 06/18/17 15:57 06/18/17 07:40 06/18/17 09:55 06/18/17 12:00 Intake and Output: 06/18/17 06/18/17 06:59 18:59 Intake Total 300 Balance 300 - Medications Medications: Current Medications Acetaminophen (Tylenol 325mg Tab) 650 mg PO Q6 PRN PRN Reason: Headache Last Admin: 06/17/17 22:50 Dose: 650 mg Albuterol/Ipratropium (Duoneb 3 Mg/0.5 Mg (3 Ml) Ud) 3 ml INH RQ6 [facility] Last Admin: 06/18/17 13:43 Dose: 3 ml Amlodipine Besylate (Norvasc) 10 mg PO DAILY [facility] Last Admin: 06/18/17 09:49 Dose: 10 mg Aspirin (Aspirin) 325 mg PO DAILY [facility] Last Admin: 06/18/17 09:49 Dose: 325 mg Clonidine HCl (Catapres) 0.1 mg PO TID [facility] Last Admin: 06/18/17 13:28 Dose: 0.1 mg Diphenhydramine HCl (Benadryl) 25 mg IVP Q6 [facility] Last Admin: 06/18/17 12:39 Dose: 25 mg Enoxaparin Sodium (Lovenox) 40 mg SC DAILY [facility] Last Admin: 06/18/17 09:50 Dose: 40 mg Famotidine (Pepcid) 40 mg PO DAILY [facility] Last Admin: 06/18/17 09:49 Dose: 40 mg Furosemide (Lasix) 20 mg PO DAILY [facility] Last Admin: 06/18/17 09:55 Dose: 20 mg Losartan Potassium (Cozaar) 100 mg PO DAILY [facility] Last Admin: 06/18/17 09:49 Dose: 100 mg Montelukast Sodium (Singulair) 10 mg PO HS [facility] Last Admin: 06/17/17 22:49 Dose: 10 mg Nitroglycerin (Nitrostat Sl Tab) 0.4 mg SL Q5M PRN PRN Reason: chest pain Rosuvastatin Calcium (Crestor) 2.5 mg PO HS [facility] Last Admin: 06/17/17 22:49 Dose: 2.5 mg - Labs Labs: 06/18/17 07:10 06/18/17 07:10 PT 11.9 SECONDS (9.7-12.2) 06/18/17 07:10 INR 1.1 06/18/17 07:10 APTT 31 SECONDS (21-34) 06/18/17 07:10 - Constitutional Appears: Well - Head Exam Head Exam: ATRAUMATIC, NORMAL INSPECTION, NORMOCEPHALIC - Eye Exam Eye Exam: EOMI, Normal appearance, PERRL Pupil Exam: NORMAL ACCOMODATION, PERRL - ENT Exam ENT Exam: Mucous Membranes Moist, Normal Exam - Neck Exam Neck Exam: Full ROM, Normal Inspection. absent: Lymphadenopathy - Respiratory Exam Respiratory Exam: Decreased Breath Sounds - Cardiovascular Exam Cardiovascular Exam: REGULAR RHYTHM, +S1, +S2 - GI/Abdominal Exam GI & Abdominal Exam: Soft, Diminished Bowel Sounds - Rectal Exam Rectal Exam: Deferred
[2017-06-18] MEDS: Rosuvastatin Calcium 2.5 mg Tab PO SCH (21:23)
[2017-06-19] MEDS: Albuterol-Ipratrop 3 mg / 0.5 (3 ml) UD INH SCH ×4 (03:06→19:05)
[2017-06-19] MEDS: DiphenhydrAMINE 50 mg/ml Inj IVP SCH ×3 (06:48→17:35)
[2017-06-19 07:56] LABS: ALB/GLOB RATIO 1.4 (1.0-2.1); ALBUMIN 3.6 g/dL (3.5-5.0); ALT/SGPT 19 U/L (9-52); AST/SGOT 15 U/L (14-36); BLOOD UREA NITROGEN 16 mg/dL (7-17); CALCIUM 8.3 mg/dl (8.6-10.4); GFR AFRICAN-AMERICAN > 60; GFR NON-AFRICAN AMERICAN > 60
[2017-06-19] MEDS: Enoxaparin 40 mg Syringe SC SCH (09:43)
--- NOTE | 2017-06-19 14:30 | CP.PCM.PN ---
Subjective - Date & Time of Evaluation Date of Evaluation: 06/19/17 Time of Evaluation: 10:20 - Subjective Subjective: clinically same Objective - Vital Signs/Intake and Output Vital Signs (last 24 hours): Temp Pulse Resp BP Pulse Ox 97.8 F 72 20 114/74 97 06/19/17 07:45 06/19/17 07:45 06/19/17 07:45 06/19/17 09:44 06/19/17 12:00 Intake and Output: 06/19/17 06/19/17 06:59 18:59 Intake Total 320 Balance 320 - Medications Medications: Current Medications Acetaminophen (Tylenol 325mg Tab) 650 mg PO Q6 PRN PRN Reason: Headache Last Admin: 06/17/17 22:50 Dose: 650 mg Albuterol/Ipratropium (Duoneb 3 Mg/0.5 Mg (3 Ml) Ud) 3 ml INH RQ6 [facility] Last Admin: 06/19/17 14:21 Dose: 3 ml Amlodipine Besylate (Norvasc) 10 mg PO DAILY [facility] Last Admin: 06/19/17 10:00 Dose: 10 mg Aspirin (Aspirin) 325 mg PO DAILY [facility] Last Admin: 06/19/17 09:43 Dose: 325 mg Clonidine HCl (Catapres) 0.1 mg PO TID [facility] Last Admin: 06/19/17 13:08 Dose: 0.1 mg Diphenhydramine HCl (Benadryl) 25 mg IVP Q6 [facility] Last Admin: 06/19/17 12:20 Dose: 25 mg Enoxaparin Sodium (Lovenox) 40 mg SC DAILY [facility] Last Admin: 06/19/17 09:43 Dose: 40 mg Famotidine (Pepcid) 40 mg PO DAILY [facility] Last Admin: 06/19/17 09:43 Dose: 40 mg Furosemide (Lasix) 20 mg PO DAILY [facility] Last Admin: 06/19/17 09:44 Dose: 20 mg Losartan Potassium (Cozaar) 100 mg PO DAILY [facility] Last Admin: 06/19/17 09:44 Dose: 100 mg Montelukast Sodium (Singulair) 10 mg PO HS [facility] Last Admin: 06/18/17 21:22 Dose: 10 mg Nitroglycerin (Nitrostat Sl Tab) 0.4 mg SL Q5M PRN PRN Reason: chest pain Rosuvastatin Calcium (Crestor) 2.5 mg PO HS [facility] Last Admin: 06/18/17 21:23 Dose: 2.5 mg - Labs Labs: 06/18/17 07:10 06/19/17 07:05 PT 11.9 SECONDS (9.7-12.2) 06/18/17 07:10 INR 1.1 06/18/17 07:10 APTT 31 SECONDS (21-34) 06/18/17 07:10 - Constitutional Appears: Well - Head Exam Head Exam: ATRAUMATIC, NORMAL INSPECTION, NORMOCEPHALIC - Eye Exam Eye Exam: EOMI, Normal appearance, PERRL Pupil Exam: NORMAL ACCOMODATION, PERRL - ENT Exam ENT Exam: Mucous Membranes Moist, Normal Exam - Neck Exam Neck Exam: Full ROM, Normal Inspection. absent: Lymphadenopathy - Respiratory Exam Respiratory Exam: Decreased Breath Sounds - Cardiovascular Exam Cardiovascular Exam: REGULAR RHYTHM, +S1, +S2 - GI/Abdominal Exam GI & Abdominal Exam: Soft, Diminished Bowel Sounds - Rectal Exam Rectal Exam: Deferred
[2017-06-19] MEDS: Rosuvastatin Calcium 2.5 mg Tab PO SCH (22:26)
[2017-06-20] MEDS: DiphenhydrAMINE 50 mg/ml Inj IVP SCH ×3 (00:11→12:38)
[2017-06-20] MEDS: Albuterol-Ipratrop 3 mg / 0.5 (3 ml) UD INH SCH ×2 (01:49→13:33)
[2017-06-20] MEDS: Enoxaparin 40 mg Syringe SC SCH (09:33)
--- NOTE | 2017-06-20 10:30 | VASCLAB ---
PROCEDURE: Lower Extremity Venous Duplex Exam. HISTORY: LE swelling and pain Obesity, Osteoarthritis PRIORS: None. TECHNIQUE: Bilateral common femoral, femoral, popliteal and posterior tibial, peroneal and great saphenous veins were evaluated. Flow was assessed with color Doppler, compressibility, assessment of phasic flow and augmentation response. Report prepared by Tee Odell, RVT FINDINGS: RIGHT: 1. Common Femoral Vein: 1.1. Compressibility - Fully compressible: Thrombus - None : Flow - Phasic: Augmentation -Normal: Reflux - . 2. Femoral Vein: 2.1. Compressibility - Fully compressible: Thrombus - None : Flow - Phasic: Augmentation -Normal: Reflux - . 3. Popliteal Vein: 3.1. Compressibility - Fully compressible: Thrombus - None : Flow - Phasic: Augmentation -Normal: Reflux - . 4. Posterior Tibial Vein: 4.1. Compressibility - Fully compressible: Thrombus - None: Flow - : Augmentation -: Reflux - . 5. Peroneal Vein: 5.1. Compressibility - Fully compressible: Thrombus - None: Flow - : Augmentation -: Reflux - . 6. Great Saphenous Vein: 6.1. Compressibility - Fully compressible: Thrombus - None: Flow - Phasic: Augmentation - : Reflux - . LEFT: 1. Common Femoral Vein: 1.1. Compressibility - Fully compressible: Thrombus - None: Flow - Phasic: Augmentation -Normal: Reflux - None. 2. Femoral Vein: 2.1. Compressibility - Fully compressible: Thrombus - None: Flow - Phasic: Augmentation -Normal: Reflux - . 3. Popliteal Vein: 3.1. Compressibility - Fully compressible: Thrombus - None : Flow - Phasic: Augmentation -Normal: Reflux - . 4. Posterior Tibial Vein: 4.1. Compressibility - Fully compressible: Thrombus - None: Flow - : Augmentation -: Reflux - . 5. Peroneal Vein: 5.1. Compressibility - Fully compressible: Thrombus - None: Flow - : Augmentation -: Reflux - . 6. Great Saphenous Vein: 6.1. Compressibility - Fully compressible: Thrombus - None: Flow - Phasic: Augmentation - : Reflux - . OTHER FINDINGS: Right: There was a non vascular, fluid filled structure noted behind the knee, which measured 3.3x2.3 cm. Possible Rosa cyst. Left: None significant. IMPRESSION: Right: No evidence of deep or superficial vein thrombosis of the right lower extremity. Left: No evidence of deep or superficial vein thrombosis of the left lower extremity.
[2017-06-20] MEDS ORDERED: guaiFENesin DM 100 mg-10 mg/5 ml UD PO PRN ×2 (11:00→11:13)
--- NOTE | 2017-06-20 11:08 | CP.PCM.PN ---
Subjective - Date & Time of Evaluation Date of Evaluation: 06/20/17 Time of Evaluation: 11:00 - Subjective Subjective: progress note maximo lee pt seen and examined at bedside. no acute distress. still getting some cp and sob. no fevers chills. echo pending. Objective - Vital Signs/Intake and Output Vital Signs (last 24 hours): Temp Pulse Resp BP Pulse Ox 97.8 F 69 20 113/63 99 06/20/17 08:05 06/20/17 08:05 06/20/17 08:05 06/20/17 09:35 06/20/17 08:05 Intake and Output: 06/20/17 06/20/17 06:59 18:59 Intake Total 500 Balance 500 - Medications Medications: Current Medications Acetaminophen (Tylenol 325mg Tab) 650 mg PO Q6 PRN PRN Reason: Headache Last Admin: 06/17/17 22:50 Dose: 650 mg Albuterol/Ipratropium (Duoneb 3 Mg/0.5 Mg (3 Ml) Ud) 3 ml INH RQ6 [facility] Last Admin: 06/20/17 01:49 Dose: Not Given Amlodipine Besylate (Norvasc) 10 mg PO DAILY [facility] Last Admin: 06/20/17 09:33 Dose: 10 mg Aspirin (Aspirin) 325 mg PO DAILY [facility] Last Admin: 06/20/17 09:32 Dose: 325 mg Clonidine HCl (Catapres) 0.1 mg PO TID [facility] Last Admin: 06/20/17 09:33 Dose: 0.1 mg Diphenhydramine HCl (Benadryl) 25 mg IVP Q6 [facility] Last Admin: 06/20/17 06:07 Dose: 25 mg Enoxaparin Sodium (Lovenox) 40 mg SC DAILY [facility] Last Admin: 06/20/17 09:33 Dose: 40 mg Famotidine (Pepcid) 40 mg PO DAILY [facility] Last Admin: 06/20/17 09:33 Dose: 40 mg Furosemide (Lasix) 20 mg PO DAILY [facility] Last Admin: 06/20/17 09:35 Dose: 20 mg Guaifenesin/Dextromethorphan (Robitussin Dm) 5 ml PO Q4H PRN PRN Reason: Cough Losartan Potassium (Cozaar) 100 mg PO DAILY [facility] Last Admin: 06/20/17 09:33 Dose: 100 mg Montelukast Sodium (Singulair) 10 mg PO HS [facility] Last Admin: 06/19/17 22:26 Dose: 10 mg Nitroglycerin (Nitrostat Sl Tab) 0.4 mg SL Q5M PRN PRN Reason: chest pain Rosuvastatin Calcium (Crestor) 2.5 mg PO HS [facility] Last Admin: 06/19/17 22:26 Dose: 2.5 mg - Labs Labs: 06/18/17 07:10 06/19/17 07:05 PT 11.9 SECONDS (9.7-12.2) 06/18/17 07:10 INR 1.1 06/18/17 07:10 APTT 31 SECONDS (21-34) 06/18/17 07:10 - Constitutional Appears: Non-toxic, No Acute Distress - Head Exam Head Exam: ATRAUMATIC, NORMAL INSPECTION, NORMOCEPHALIC - Eye Exam Eye Exam: EOMI - ENT Exam ENT Exam: Mucous Membranes Moist - Respiratory Exam Respiratory Exam: Decreased Breath Sounds. absent: Respiratory Distress - Cardiovascular Exam Cardiovascular Exam: +S1, +S2 - GI/Abdominal Exam GI & Abdominal Exam: Soft, Normal Bowel Sounds. absent: Tenderness - Extremities Exam Extremities Exam: Full ROM, Normal Inspection - Back Exam Back Exam: NORMAL INSPECTION - Neurological Exam Neurological Exam: Alert, Awake, Oriented x3 - Psychiatric Exam Psychiatric exam: Normal Affect, Normal Mood - Skin Skin Exam: Dry, Intact, Normal Color, Warm Assessment and Plan - Assessment and Plan (Free Text) Assessment: this is a 51 yo female with 1. chest pain -cardio consult -ekg shows 1st degree av block lovenox 40 -continue crestor -continue asa daily -echo pending 2. hx of heart failure -continue lasix 3. hx of htn -continue losartan 4. hx of asthma -continue singulair -continue duonebs 5. gi/dvt ppx -continue lovenox -continue pepcid
--- NOTE | 2017-06-20 11:51 | CARD ---
APPROVED REPORT EXAM: Two-dimensional and M-mode echocardiogram with Doppler and color Doppler. INDICATION Chest Pain Asthma 2D DIMENSIONS IVSd1.2 (0.7-1.1cm)LVDd4.8 (3.9-5.9cm) PWd1.1 (0.7-1.1cm)LVDs3.1 (2.5-4.0cm) FS (%) 36.3 %LVEF (%)65.9 (>50%) M-Mode DIMENSIONS Left Atrium (MM)4.56 (2.5-4.0cm)Aortic Root3.95 (2.2-3.7cm) Aortic Cusp Exc.2.45 (1.5-2.0cm) Mitral Valve MV E Ffcesvqe142.1cm/sMV A Itbcsntp022.8cm/sE/A ratio0.8 TDI E/Lateral E'0.0E/Medial E'0.0 LEFT VENTRICLE The left ventricle is normal size. There is mild concentric left ventricular hypertrophy. The left ventricular function is normal. The left ventricular ejection fraction is within the normal range. There is normal LV segmental wall motion. Transmitral Doppler flow pattern is Grade I-abnormal relaxation pattern. No left ventricle thrombus noted on this study. There is no ventricular septal defect visualized. There is no left ventricular aneurysm. There is no mass noted in the left ventricle. RIGHT VENTRICLE The right ventricle is normal size. There is normal right ventricular wall thickness. The right ventricular systolic function is normal. ATRIA The left atrium is mildly dilated. The right atrium size is normal. The interatrial septum is intact with no evidence for an atrial septal defect. AORTIC VALVE The aortic valve is normal in structure. No aortic regurgitation is present. There is no aortic valvular stenosis. There is no aortic valvular vegetation. MITRAL VALVE The mitral valve is normal in structure. There is no mitral valve stenosis. There is no mitral valve regurgitation noted. TRICUSPID VALVE The tricuspid valve is normal in structure. There is no tricuspid valve regurgitation noted. PULMONIC VALVE The pulmonary valve is normal in structure. There is no pulmonic valvular regurgitation. GREAT VESSELS The aortic root is normal in size. The ascending aorta is normal in size. The pulmonary artery is normal. The IVC is normal in size and collapses >50% with inspiration. PERICARDIAL EFFUSION There is no pericardial effusion. <Conclusion> There is mild concentric left ventricular hypertrophy. Transmitral Doppler flow pattern is Grade I-abnormal relaxation pattern. The left atrium is mildly dilated. lvef is 65%.
[2017-06-20 11:53] LABS: BASO % 0.7 % (0.0-2.0); EOS # 0.5 K/uL (0.0-0.7); EOS % 8.8 % (0.0-4.0); HEMOGLOBIN 12.8 g/dL (11.0-16.0); LYMPH % 35.4 % (20.0-40.0); MEAN CELL VOLUME 85.4 fL (81.0-99.0); MEAN CORPUSCULAR HEMOGLOBIN 28.2 pg (27.0-31.0); MONO # 0.5 K/uL (0.0-0.8); NEUT # 2.7 K/uL (1.8-7.0); NEUT % 47.1 % (50.0-75.0); NRBC % 0.1 % (0.0-2.0); RBC 4.56 Mil/uL (3.80-5.20); RED CELL DISTRIBUTION WIDTH 15.1 % (11.5-14.5); WHITE BLOOD COUNT 5.7 K/uL (4.8-10.8)
[2017-06-20 12:27] LABS: ALB/GLOB RATIO 1.2 (1.0-2.1); ALBUMIN 3.8 g/dL (3.5-5.0); ALT/SGPT 28 U/L (9-52); AST/SGOT 16 U/L (14-36); BLOOD UREA NITROGEN 16 mg/dL (7-17); CALCIUM 9.2 mg/dl (8.6-10.4); GFR AFRICAN-AMERICAN > 60; GFR NON-AFRICAN AMERICAN > 60
--- NOTE | 2017-06-20 12:56 | CP.PCM.CON ---
History of Present Illness - History of Present Illness History of Present Illness: Per Initial note: 51 year old female presents to the ER complaining of chest pain for the past few days. Pain is localized to the anterior chest wall area, and radiates to the left upper extremity. Denies any shortness of breath, nausea, or vomiting. + Cough 'dry' bronchitis sx's Imaging directly seen by me: 06/17/17: Echo: LVH, Grade 1 DD, mild LAE, normal EF and wall motion 06/17/17: CT chest: No PE 06/17/17: CXR: no congestion 06/16/17: EKG: NSR, no acute ischemic changes Thus far Labs: WNL, troponin has been negative x3 Cardiac HX: no PCI/CABG or CVA/MD PMHX: HTN chronic stable, LIPIDS mild Surgeries; prior hernia ROS: all 12 systems neg except HPI; + Obsese Review of Systems - Review of Systems All systems: reviewed and no additional remarkable complaints except Past Patient History - Infectious Disease Hx of Infectious Diseases: None - Past Medical History & Family History Past Medical History?: Yes - Past Social History Smoking Status: Never Smoked - CARDIAC Hx Hypertension: Yes Hx Peripheral Edema: Yes - PULMONARY Hx Asthma: Yes Hx Chronic Obstructive Pulmonary Disease (COPD): Yes Hx Pneumonia: Yes (2016) - NEUROLOGICAL Hx Neurological Disorder: No - HEENT Hx HEENT Problems: No - RENAL Hx Chronic Kidney Disease: No - ENDOCRINE/METABOLIC Hx Endocrine Disorders: No - HEMATOLOGICAL/ONCOLOGICAL Hx Blood Disorders: No - INTEGUMENTARY Hx Dermatological Problems: No - MUSCULOSKELETAL/RHEUMATOLOGICAL Hx Arthritis: Yes - GASTROINTESTINAL Hx Gastrointestinal Disorders: No - GENITOURINARY/GYNECOLOGICAL Hx Genitourinary Disorders: No - PSYCHIATRIC Hx Substance Use: No - SURGICAL HISTORY Hx Surgeries: Yes Hx Section: Yes (x5) Hx Herniorrhaphy: Yes - ANESTHESIA Hx Anesthesia: Yes Hx Anesthesia Reactions: No Hx Malignant Hyperthermia: No Meds Allergies/Adverse Reactions: Allergies Allergy/AdvReac Type Severity Reaction Status Date / Time No Known Allergies Allergy Verified 04/25/17 19:55 - Medications Medications: Current Medications Acetaminophen (Tylenol 325mg Tab) 650 mg PO Q6 PRN PRN Reason: Headache Last Admin: 06/17/17 22:50 Dose: 650 mg Albuterol/Ipratropium (Duoneb 3 Mg/0.5 Mg (3 Ml) Ud) 3 ml INH RQ6 [facility] Last Admin: 06/20/17 01:49 Dose: Not Given Amlodipine Besylate (Norvasc) 10 mg PO DAILY [facility] Last Admin: 06/20/17 09:33 Dose: 10 mg Aspirin (Aspirin) 325 mg PO DAILY [facility] Last Admin: 06/20/17 09:32 Dose: 325 mg Clonidine HCl (Catapres) 0.1 mg PO TID [facility] Last Admin: 06/20/17 09:33 Dose: 0.1 mg Diphenhydramine HCl (Benadryl) 25 mg IVP Q6 [facility] Last Admin: 06/20/17 12:38 Dose: 25 mg Enoxaparin Sodium (Lovenox) 40 mg SC DAILY [facility] Last Admin: 06/20/17 09:33 Dose: 40 mg Famotidine (Pepcid) 40 mg PO DAILY [facility] Last Admin: 06/20/17 09:33 Dose: 40 mg Furosemide (Lasix) 20 mg PO DAILY [facility] Last Admin: 06/20/17 09:35 Dose: 20 mg Guaifenesin/Dextromethorphan (Robitussin Dm) 5 ml PO Q4H PRN PRN Reason: Cough Last Admin: 06/20/17 11:15 Dose: 5 ml Losartan Potassium (Cozaar) 100 mg PO DAILY [facility] Last Admin: 06/20/17 09:33 Dose: 100 mg Montelukast Sodium (Singulair) 10 mg PO [facility] Last Admin: 06/19/17 22:26 Dose: 10 mg Nitroglycerin (Nitrostat Sl Tab) 0.4 mg SL Q5M PRN PRN Reason: chest pain Rosuvastatin Calcium (Crestor) 2.5 mg PO [facility] Last Admin: 06/19/17 22:26 Dose: 2.5 mg Physical Exam - Constitutional Appears: No Acute Distress, Other (obese) - Head Exam Head Exam: ATRAUMATIC, NORMAL INSPECTION, NORMOCEPHALIC - Eye Exam Eye Exam: EOMI, Normal appearance, PERRL - ENT Exam ENT Exam: Mucous Membranes Moist, Normal Oropharynx - Respiratory Exam Respiratory Exam: Clear to Auscultation Bilateral, NORMAL BREATHING PATTERN. absent: Wheezes - Cardiovascular Exam Cardiovascular Exam: +S1, +S2. absent: +S4, Systolic Murmur - GI/Abdominal Exam GI & Abdominal Exam: Normal Bowel Sounds, Soft. absent: Tenderness - Extremities Exam Extremities exam: Positive for: normal inspection. Negative for: pedal edema - Neurological Exam Neurological exam: Alert, Oriented x3 Results - Vital Signs Recent Vital Signs: Last Vital Signs Temp 97.8 F 06/20/17 08:05 Pulse 69 06/20/17 08:05 Resp 20 06/20/17 08:05 BP 113/63 06/20/17 09:35 Pulse Ox 99 06/20/17 08:05 - Labs Result Diagrams: 06/20/17 11:43 06/20/17 11:43 Labs: Laboratory Results - last 24 hr 06/20/17 06/20/17 11:43 11:43 WBC 5.7 RBC 4.56 Hgb 12.8 Hct 38.9 MCV 85.4 MCH 28.2 MCHC 33.0 RDW 15.1 H Plt Count 241 MPV 9.0 Neut % (Auto) 47.1 L Lymph % (Auto) 35.4 [place] % (Auto) 8.0 Eos % (Auto) 8.8 H Baso % (Auto) 0.7 Neut # (Auto) 2.7 Lymph # (Auto) 2.0 [place] # (Auto) 0.5 Eos # (Auto) 0.5 Baso # (Auto) 0.0 Sodium 140 Potassium 3.8 Chloride 98 Carbon Dioxide 33 H Anion Gap 13 BUN 16 Creatinine 0.7 Est GFR ( Amer) > 60 Est GFR (Non-Af Amer) > 60 Random Glucose 79 Calcium 9.2 Total Bilirubin 0.5 AST 16 ALT 28 Alkaline Phosphatase 50 Total Protein 7.1 Albumin 3.8 Globulin 3.3 Albumin/Globulin Ratio 1.2 - EKG Data EKG Interpreted by: Myself EKG shows normal: Sinus rhythm Rate: Normal Assessment & Plan - Assessment and Plan (Free Text) Assessment: CP is atypical Mi ruled out ECHO normal LVEF and wall motion BP is controlled No volume overload or abnormal cardiac exam PLAN: cONT bp MEDS CONT STATIN rx ADVISE [id number]-CHOL DIET, EXERCISE AND WEIGHT LOSS NO CARDIAC CAUSE FOR PRESENTING COMPLAINTS
[2017-06-20 16:29] VITALS: BP 94/63; PULSE 68; TEMP 98; O2SAT 100
== END 2017-06-20 18:01 | disposition home or self-care (01) | DRG 143 ==
LOC: C.ER 21:24 → C.9E 06-17 04:44 → C.5S 06-17 17:24 → OBSVTOIN 06-19 22:48
PROVIDERS: ADMIT Internal Medicine Nephrology; ATTEND Internal Medicine Nephrology
DX: R07.89 Other chest pain (principal); I11.0 Hypertensive heart disease with heart failure; E66.01 Morbid (severe) obesity due to excess calories; I50.9 Heart failure, unspecified; J44.9 Chronic obstructive pulmonary disease, unspecified; J45.909 Unspecified asthma, uncomplicated; Z68.42 Body mass index [BMI] 45.0-49.9, adult; F31.9 Bipolar disorder, unspecified; I44.0 Atrioventricular block, first degree; K21.9 Gastro-esophageal reflux disease without esophagitis; L50.9 Urticaria, unspecified; M19.90 Unspecified osteoarthritis, unspecified site; R79.1 Abnormal coagulation profile; Z87.01 Personal history of pneumonia (recurrent)

== ENCOUNTER 2017-07-22 05:58 | Emergency (ER) | payer MEDICAID ==
[2017-07-22 06:12] VITALS: RESP 20
--- NOTE | 2017-07-22 06:39 | C.PDOC ---
History Of Present Illness Patient is a 51 y/o female who presents to the ED with a complaint of irritation to labia s/p shaving with a razor 4 days ago. Patient reports to have shaved pubic hair and subsequently experienced discomfort. No other physical complaints at this time. Time Seen by Provider: 07/22/17 06:30 Chief Complaint (Nursing): Abnormal Skin Integrity History Per: Patient History/Exam Limitations: no limitations Onset/Duration Of Symptoms: Days (4) Current Symptoms Are (Timing): Still Present Quality Of Symptoms: Itching Recent travel outside of the [place]: No Past Medical History Reviewed: Historical Data, Nursing Documentation, Vital Signs Vital Signs: Last Vital Signs Temp 98.3 F 07/22/17 06:06 Pulse 88 07/22/17 06:06 Resp 20 07/22/17 06:06 BP 138/81 07/22/17 06:06 Pulse Ox 97 07/22/17 06:41 - Medical History PMH: Anxiety, Arthritis, Asthma, Bipolar Disorder, COPD, Depression, HTN, Peripheral Edema, Pneumonia (2016) Denies: Chronic Kidney Disease Surgical History: Family History: States: No Known Family Hx - Social History Hx Tobacco Use: No Hx Alcohol Use: No Hx Substance Use: No - Immunization History Hx Tetanus Toxoid Vaccination: No Hx Influenza Vaccination: No Hx Pneumococcal Vaccination: No Review Of Systems Skin: Positive for: Other (itching and irritation to labia ) Physical Exam - Physical Exam Appears: Well, Non-toxic, No Acute Distress Skin: Other (scattered, dry follicles to perineum; negative erythema, postules, or fluctuant mass) Head: Atraumatic, Normacephalic Eye(s): bilateral: Normal Inspection, PERRL, EOMI Oral Mucosa: Moist Chest: Symmetrical Cardiovascular: Rhythm Regular, No Murmur Respiratory: Normal Breath Sounds, No Rales, No Rhonchi, No Wheezing Gastrointestinal/Abdominal: Soft, No Tenderness, No Distention Extremity: Normal ROM (full range of motion) Neurological/Psych: Oriented x3, Normal Speech, Normal Cognition ED Course And Treatment O2 Sat by Pulse Oximetry: 97 Progress Note: Benadryl administered. Patient advised to moisturize area with Bacitracin as needed and to follow up with PMD if symptoms do not resolve. Disposition Counseled Patient/Family Regarding: Diagnosis, Need For Followup - Disposition Referrals: Nayan Mancia [facility] [Non-Staff] - Disposition Time: 06:51 Condition: GOOD Additional Instructions: Please use exfoliative scrub to peel off dry skin Apply Vaseline or oil to area May take benadryl for itching Return to ER if worse Forms: [facility] (Guyanese) - Clinical Impression Clinical Impression: Skin irritation - Scribe Statement The provider has reviewed the documentation as recorded by the Scribe Juliet Kaiser All medical record entries made by the Scribe were at my direction and personally dictated by me. I have reviewed the chart and agree that the record accurately reflects my personal performance of the history, physical exam, medical decision making, and the department course for this patient. I have also personally directed, reviewed, and agree with the discharge instructions and disposition.
[2017-07-22 07:04] VITALS: BP 136/78; PULSE 81; TEMP 97.8; O2SAT 100
== END 2017-07-22 07:05 | disposition home or self-care (01) ==
LOC: C.ER 05:58
DX: L98.9 Disorder of the skin and subcutaneous tissue, unspecified (principal)

== ENCOUNTER 2017-07-29 23:30 | Emergency (ER) | payer MEDICAID ==
--- NOTE | 2017-07-29 23:59 | C.PDOC ---
History Of Present Illness 51 y/o female with PMHx significant of HTN states she woke up today and tried to roll over her left side and experienced chest pain. Patient reports since 6am pain has been continuous, wax and waning and gets worse with certain movements. Patient states pain worsens with movements of left arm or when left sided turning. Denies fever, coug, recent injury to chest wall, prior cardiac Hx , or smoking. Patient is also non diabetic. Chief Complaint (Nursing): Chest Pain History Per: Patient History/Exam Limitations: no limitations Onset/Duration Of Symptoms: Hrs, Waxing/Waning Current Symptoms Are (Timing): Still Present Quality: "Pain" Modifying Factors: None Exacerbating Factors: Turning, Movement Alleviating Factors: None Recent travel outside of the [place]: No Past Medical History Reviewed: Historical Data, Nursing Documentation, Vital Signs Vital Signs: Last Vital Signs Temp 98.5 F 07/30/17 03:12 Pulse 70 07/30/17 03:12 Resp 18 07/30/17 03:12 BP 145/76 07/30/17 03:12 Pulse Ox 96 07/30/17 03:12 - Medical History PMH: Anxiety, Arthritis, Asthma, Bipolar Disorder, COPD, Depression, HTN, Peripheral Edema, Pneumonia (2016) Surgical History: Family History: States: No Known Family Hx - Social History Hx Tobacco Use: No Hx Alcohol Use: No Hx Substance Use: No - Immunization History Hx Tetanus Toxoid Vaccination: No Hx Influenza Vaccination: No Hx Pneumococcal Vaccination: No Review Of Systems Constitutional: Negative for: Fever, Chills, Other (recent injury to chest wall) Cardiovascular: Positive for: Chest Pain Respiratory: Negative for: Cough, Shortness of Breath Gastrointestinal: Negative for: Nausea, Vomiting, Diarrhea Musculoskeletal: Negative for: Arm Pain Neurological: Negative for: Weakness, Numbness Physical Exam - Physical Exam Appears: Non-toxic, No Acute Distress, Other (morbidly obese) Chest: Symmetrical, Tenderness (chest wall tenderness which reproduced the chest pain), Other (Pain on movement of left shoulder which reproduced the chest pain) Cardiovascular: Rhythm Regular Respiratory: Normal Breath Sounds, No Decreased Breath Sounds, No Rales, No Rhonchi, No Wheezing Gastrointestinal/Abdominal: Soft, No Tenderness, No Distention, No Guarding, No Rebound, Other (obese) Extremity: No Tenderness, No Deformity, Other Pulses: Left Dorsalis Pedis: Normal, Right Dorsalis Pedis: Normal Neurological/Psych: Oriented x3, Normal Speech, Normal Cognition ED Course And Treatment - Laboratory Results Result Diagrams: 07/30/17 00:27 07/30/17 00:26 O2 Sat by Pulse Oximetry: 98 (RA) Pulse Ox Interpretation: Normal - CT Scan/US CT Chest Other Rad Studies (CT/US): Read By Radiologist, Radiology Report Reviewed CT/US Interpretation: EXAM: CT Angiography Chest With Intravenous Contrast. CLINICAL HISTORY: 51 years old, female; Pain; Chest pain; Prior surgery; Surgery type: Hernia repair and ;. Patient HX: 06-17-17. TECHNIQUE: Axial computed tomographic angiography images of the chest with intravenous contrast using. pulmonary embolism protocol. All CT scans at this facility use one or more dose reduction. techniques, viz.: automated exposure control; ma/ kV adjustment per patient size (including targeted. exams where dose is matched to indication; i.e. head); or iterative reconstruction technique. MIP reconstructed images were created and reviewed. Coronal and sagittal reformatted images were created and reviewed. CONTRAST: 100 mL of [id number] administered intravenously. COMPARISON: CT - ANGIO CHEST PE PROTOCOL 2017-06-17 02:32. FINDINGS: Limitations: Motion artifact - mild. Suboptimal timing of bolus. Pulmonary arteries: Mild enlargement of pulmonary trunk, up to 3.2 cm, stable. No definite. pulmonary embolism. Aorta: No aneurysm. No dissection. Lungs: No consolidation. Few pulmonary nodules, up to 0.3 cm, stable. Pleural space: No significant effusion. No pneumothorax. [facility]. [facility]. Final Radiology Report [id number]. Name: PAT PAK Age: 51Years F Date: 07/30/2017. SSN: [id number] : 1965. Study: CTA CHEST Requesting Physician: Radha Guerra. Images: [id number]. Addl Studies: Provided Clinical History: chest pain. CONFIDENTIALITY STATEMENT. This transmission is confidential and is intended to be a privileged communication. It is intended only for the use of the addressee. Access to this. message by anyone else is unauthorized. If you are not the intended recipient, any disclosure, copying, distribution or any action taken, or omitted to. be taken in reliance on it is prohibited and may be unlawful. If you received this communication in error, please notify us by telephone, so that return. of this document to us can be arranged. Page 2 of 2. Heart: No cardiomegaly. No significant pericardial effusion. Bones/joints: Degenerative changes of spine. No acute fracture. Soft tissues: Unremarkable. Lymph nodes: No pathologically enlarged lymph nodes. IMPRESSION: 1. No definite CT evidence of pulmonary embolism. 2. Pulmonary nodules. For low-risk patients, no follow-up is necessary. For high- risk patients. (smoking history or other known risk factors) an optional CT at 12 months could be performed. 3. Incidental/non-acute findings are described above. Thank you for allowing us to participate in the care of your patient. Dictated and Authenticated by: Nikhil Vasquez MD. 07/30/2017 2:59 AM Eastern Time ([place] & [place]) Medical Decision Making Medical Decision Making: Impression: - Typical chest pain most likely musculoskeletal Ordered routine labs, blood work, and CXR EKG Results: - Normal sinus rhythm at 61 bpm - First degree AV block - Intervals within normal limits - ST segments within normal limits - Normal EKG Disposition - Disposition Referrals: [facility] [Outside] Disposition: HOME/ ROUTINE Disposition Time: 03:05 Condition: GOOD Prescriptions: Naproxen [Naprosyn] 500 mg PO BID #20 tablet Forms: [employer] (Maori) - Clinical Impression Clinical Impression: Chest wall pain - Scribe Statement The provider has reviewed the documentation as recorded by the Scribhannah Lee All medical record entries made by the Scribe were at my direction and personally dictated by me. I have reviewed the chart and agree that the record accurately reflects my personal performance of the history, physical exam, medical decision making, and the department course for this patient. I have also personally directed, reviewed, and agree with the discharge instructions and disposition.mta
[2017-07-30 00:36] LABS: BASO % 0.8 % (0.0-2.0); EOS # 0.4 K/uL (0.0-0.7); HEMOGLOBIN 13.1 g/dL (11.0-16.0); LYMPH # 2.2 K/uL (1.0-4.3); LYMPH % 34.7 % (20.0-40.0); MEAN CELL VOLUME 85.2 fL (81.0-99.0); MEAN CORPUSCULAR HEMOGLOBIN 28.1 pg (27.0-31.0); MEAN PLATELET VOLUME 9.1 fL (7.2-11.7); MONO # 0.4 K/uL (0.0-0.8); MONO % 6.8 % (0.0-10.0); NEUT # 3.1 K/uL (1.8-7.0); NEUT % 50.7 % (50.0-75.0); NRBC % 0.1 % (0.0-2.0); RBC 4.67 Mil/uL (3.80-5.20); RED CELL DISTRIBUTION WIDTH 14.8 % (11.5-14.5); WHITE BLOOD COUNT 6.2 K/uL (4.8-10.8)
[2017-07-30 00:44] LABS: ALB/GLOB RATIO 1.1 (1.0-2.1); ALBUMIN 4.3 g/dL (3.5-5.0); ALT/SGPT 25 U/L (9-52); AST/SGOT 21 U/L (14-36); BLOOD UREA NITROGEN 14 mg/dL (7-17); CALCIUM 9.1 mg/dl (8.6-10.4); GFR AFRICAN-AMERICAN > 60; GFR NON-AFRICAN AMERICAN > 60
[2017-07-30] MEDS ORDERED: Iodixanol 320 MG/ML 100 ML BOTTLE IV ONE (00:57)
--- NOTE | 2017-07-30 03:00 | CT ---
EXAM: CT Angiography Chest With Intravenous Contrast CLINICAL HISTORY: 51 years old, female; Pain; Chest pain; Prior surgery; Surgery type: Hernia repair and ; Patient HX: 2 TECHNIQUE: Axial computed tomographic angiography images of the chest with intravenous contrast using pulmonary embolism protocol. All CT scans at this facility use one or more dose reduction techniques, viz.: automated exposure control; ma/kV adjustment per patient size (including targeted exams where dose is matched to indication; i.e. head); or iterative reconstruction technique. MIP reconstructed images were created and reviewed. Coronal and sagittal reformatted images were created and reviewed. CONTRAST: 100 mL of [id number] administered intravenously. COMPARISON: CT - ANGIO CHEST PE PROTOCOL 2017-06-17 02:32 FINDINGS: Limitations: Motion artifact - mild. Suboptimal timing of bolus. Pulmonary arteries: Mild enlargement of pulmonary trunk, up to 3.2 cm, stable. No definite pulmonary embolism. Aorta: No aneurysm. No dissection. Lungs: No consolidation. Few pulmonary nodules, up to 0.3 cm, stable. Pleural space: No significant effusion. No pneumothorax. Heart: No cardiomegaly. No significant pericardial effusion. Bones/joints: Degenerative changes of spine. No acute fracture. Soft tissues: Unremarkable. Lymph nodes: No pathologically enlarged lymph nodes. IMPRESSION: 1. No definite CT evidence of pulmonary embolism. 2. Pulmonary nodules. For low-risk patients, no follow-up is necessary. For high-risk patients (smoking history or other known risk factors) an optional CT at 12 months could be performed. 3. Incidental/non-acute findings are described above.
[2017-07-30 03:25] VITALS: BP 145/76; PULSE 70; RESP 18; TEMP 98.5
[2017-07-30 07:17] VITALS: O2SAT 98
--- NOTE | 2017-07-30 08:52 | RAD ---
HISTORY: Chest pain COMPARISON: 06/16/2017 FINDINGS: LUNGS: The lungs are well inflated and clear. PLEURA: No significant pleural effusion identified, no pneumothorax apparent. CARDIOVASCULAR: Normal. OSSEOUS STRUCTURES: No significant abnormalities. VISUALIZED UPPER ABDOMEN: Normal. OTHER FINDINGS: None. IMPRESSION: No active pulmonary disease.
== END 2017-07-30 03:26 | disposition home or self-care (01) ==
LOC: C.ER 23:30
DX: R07.89 Other chest pain (principal); I10 Essential (primary) hypertension; J44.9 Chronic obstructive pulmonary disease, unspecified
CPT/HCPCS: 71045; 71275; 80053; 84484; 85025; 85378; 96374; 99285; J1885; Q9967

== ENCOUNTER 2017-08-31 01:09 | Emergency (ER) | payer MEDICAID ==
[2017-08-31 01:29] VITALS: RESP 18
--- NOTE | 2017-08-31 01:41 | C.PDOC ---
History Of Present Illness 51 year old female presents to the ED c/o rash to her upper and lower extremities for the past 2-3 days. Patient states she took "pink Benadryl" which made her rash worse. Patient is also c.o tingling and numbness to B/L hands. Patient denies fever, chills, nausea, vomit, diarrhea, CP, SOB. Time Seen by Provider: 08/31/17 01:31 Chief Complaint (Nursing): Abnormal Skin Integrity History Per: Patient History/Exam Limitations: no limitations Onset/Duration Of Symptoms: Days Current Symptoms Are (Timing): Still Present Location Of Injury: Right: Back, Left: Back Quality Of Symptoms: Itching Recent travel outside of the [place]: No Additional History Per: Patient Past Medical History Reviewed: Historical Data, Nursing Documentation, Vital Signs Vital Signs: Last Vital Signs Temp 97.9 F 08/31/17 02:40 Pulse 86 08/31/17 02:40 Resp 18 08/31/17 02:40 BP 137/78 08/31/17 02:40 Pulse Ox 96 08/31/17 02:54 - Medical History PMH: Anxiety, Arthritis, Asthma, Bipolar Disorder, COPD, Depression, HTN, Peripheral Edema, Pneumonia (2016), Sleep Apnea Denies: Chronic Kidney Disease Surgical History: Family History: States: Unknown Family Hx - Social History Hx Tobacco Use: No Hx Alcohol Use: No Hx Substance Use: No - Immunization History Hx Tetanus Toxoid Vaccination: No Hx Influenza Vaccination: No Hx Pneumococcal Vaccination: No Review Of Systems Constitutional: Negative for: Fever, Chills Cardiovascular: Negative for: Chest Pain Respiratory: Negative for: Shortness of Breath Gastrointestinal: Negative for: Vomiting, Abdominal Pain Skin: Positive for: Rash Neurological: Positive for: Numbness. Negative for: Weakness Physical Exam - Physical Exam Appears: Non-toxic, No Acute Distress Skin: Normal Color, Warm, Dry, Rash (maculopapular upper extermities and lower extremities. no vesicles, no erythema) Head: Atraumatic, Normacephalic Eye(s): bilateral: Normal Inspection Nose: No Discharge Oral Mucosa: Moist Tongue: No Swelling Lips: No Swelling Throat: Normal, No Erythema, No Exudate Neck: Normal ROM, Supple Chest: Symmetrical Cardiovascular: Rhythm Regular, No Murmur Respiratory: Normal Breath Sounds, No Rales, No Rhonchi, No Wheezing Gastrointestinal/Abdominal: Soft, No Tenderness, No Guarding, No Rebound Extremity: Normal ROM, No Tenderness, No Swelling Neurological/Psych: Oriented x3, Normal Motor, Normal Sensation Gait: Steady ED Course And Treatment O2 Sat by Pulse Oximetry: 96 (ON RA) Pulse Ox Interpretation: Normal Progress Note: Plan: - benadryl 50 mg po. - prednisone 40 mg po. On reassessment, patient is resting comfortably, and is in no acute distress. Patient was instructed to follow up with physician/clinic in 1-2 days for further evaluation. Disposition Counseled Patient/Family Regarding: Diagnosis, Need For Followup, Rx Given - Disposition Disposition: HOME/ ROUTINE Disposition Time: 02:32 Condition: STABLE Additional Instructions: Please follow up with PMD Take meds as directed Return to ER if worse Prescriptions: DiphenhydrAMINE [Benadryl] 50 mg PO Q6H #15 cap predniSONE [Prednisone] 40 mg PO DAILY #8 tab Instructions: Skin Rash (DC) Forms: [employer] (Namibian) - Clinical Impression Clinical Impression: Skin rash - PA / SIGNALS ANALYST / Resident Statement MD/DO has reviewed & agrees with the documentation as recorded. - Scribe Statement The provider has reviewed the documentation as recorded by the Scribe Satnam Yuan All medical record entries made by the Lang were at my direction and personally dictated by me. I have reviewed the chart and agree that the record accurately reflects my personal performance of the history, physical exam, medical decision making, and the department course for this patient. I have also personally directed, reviewed, and agree with the discharge instructions and disposition.
[2017-08-31 02:41] VITALS: BP 137/78; PULSE 86; TEMP 97.9
[2017-08-31 02:51] VITALS: O2SAT 96
== END 2017-08-31 02:50 | disposition home or self-care (01) ==
LOC: SUPCPDRO 01:09 → C.ER 01:09
DX: R21 Rash and other nonspecific skin eruption (principal)

== ENCOUNTER 2017-10-07 13:43 | Observation (INO) | payer MEDICAID ==
[2017-10-07 14:10] VITALS: BMI 54.6
--- NOTE | 2017-10-07 14:51 | C.PDOC ---
History Of Present Illness 51-year-old female, presents to the emergency department with complaints of chest pain for the past four days. Patient notes worsening of chronic back pain. Patient is also complaining of tingling in both hands, and burning sensation in her feet, which has been ongoing for a "long time" Patient states she called her doctor who referred her to ED for further evaluation. Time Seen by Provider: 10/07/17 14:34 Chief Complaint (Nursing): Chest Pain History Per: Patient History/Exam Limitations: no limitations Current Symptoms Are (Timing): Still Present Past Medical History Reviewed: Historical Data, Nursing Documentation, Vital Signs Vital Signs: Last Vital Signs Temp 99.0 F 10/07/17 18:08 Pulse 78 10/07/17 18:08 Resp 18 10/07/17 18:08 BP 147/58 L 10/07/17 18:08 Pulse Ox 99 10/07/17 18:08 - Medical History PMH: Anxiety, Arthritis, Asthma, Bipolar Disorder, COPD, Depression, HTN, Peripheral Edema, Pneumonia (2016), Sleep Apnea Surgical History: Family History: States: No Known Family Hx - Social History Hx Tobacco Use: No Hx Alcohol Use: No Hx Substance Use: No - Immunization History Hx Tetanus Toxoid Vaccination: No Hx Influenza Vaccination: No Hx Pneumococcal Vaccination: No Review Of Systems Constitutional: Negative for: Fever, Chills Cardiovascular: Positive for: Chest Pain Respiratory: Negative for: Shortness of Breath Gastrointestinal: Negative for: Vomiting Musculoskeletal: Positive for: Back Pain Neurological: Negative for: Weakness, Numbness Physical Exam - Physical Exam Appears: Non-toxic, No Acute Distress Skin: Normal Color, Warm, Dry, No Rash Head: Normacephalic Eye(s): bilateral: Normal Inspection Nose: Normal Oral Mucosa: Moist Lips: Normal Appearing Neck: Normal ROM Chest: Symmetrical Cardiovascular: Rhythm Regular Respiratory: Normal Breath Sounds, No Accessory Muscle Use Gastrointestinal/Abdominal: Soft, No Tenderness Extremity: Normal ROM, No Pedal Edema, No Deformity, No Swelling Neurological/Psych: Oriented x3, Normal Speech ED Course And Treatment - Laboratory Results Result Diagrams: 10/07/17 15:36 10/07/17 15:36 Interpretation Of ECst degree AV block Rate From EC O2 Sat by Pulse Oximetry: 97 (RA) Pulse Ox Interpretation: Normal Progress Note: Case was d/c with who accepted her to his service for Tele obs. Medical Decision Making Medical Decision Making: Plan: * EKG * Bloodwork * Chest X-Ray * UA * Reassess and Disposition Disposition - Disposition Disposition: HOSPITALIZED Disposition Time: 18:27 Condition: FAIR Forms: [employer] (American) - Clinical Impression Clinical Impression: Chest pain, Paresthesia and pain of extremity - Scribe Statement The provider has reviewed the documentation as recorded by the Scribe (Jorge L Reagan) All medical record entries made by the Scribe were at my direction and personally dictated by me. I have reviewed the chart and agree that the record accurately reflects my personal performance of the history, physical exam, medical decision making, and the department course for this patient. I have also personally directed, reviewed, and agree with the discharge instructions and disposition. Decision To Admit - Pt Status Changed To: Hospital Disposition Of: Observation - . Bed Request Type: Telemetry Admitting Physician: Nithin Ortiz Patient Diagnosis: Chest pain, Paresthesia and pain of extremity
[2017-10-07 15:40] LABS: BASO # 0.1 K/uL (0.0-0.2); BASO % 1.1 % (0.0-2.0); EOS # 0.1 K/uL (0.0-0.7); EOS % 2.1 % (0.0-4.0); HEMOGLOBIN 13.1 g/dL (11.0-16.0); LYMPH % 15.5 % (20.0-40.0); MEAN CELL VOLUME 84.4 fL (81.0-99.0); MEAN CORPUSCULAR HEMOGLOBIN 28.7 pg (27.0-31.0); MEAN PLATELET VOLUME 8.6 fL (7.2-11.7); MONO # 0.2 K/uL (0.0-0.8); MONO % 2.5 % (0.0-10.0); NEUT # 5.3 K/uL (1.8-7.0); NEUT % 78.8 % (50.0-75.0); RBC 4.55 Mil/uL (3.80-5.20); WHITE BLOOD COUNT 6.7 K/uL (4.8-10.8)
--- NOTE | 2017-10-07 15:47 | RAD ---
PROCEDURE: CHEST RADIOGRAPH, 1 VIEW HISTORY: Chest pain COMPARISON: 06/16/2017. FINDINGS: LUNGS: The lungs are well inflated and clear. PLEURA: No pneumothorax or pleural fluid seen. CARDIOVASCULAR: Normal. OSSEOUS STRUCTURES: No significant abnormalities. VISUALIZED UPPER ABDOMEN: Normal. OTHER FINDINGS: None. IMPRESSION: No active pulmonary disease.
[2017-10-07 15:48] LABS: INR 1.1; PROTHROMBIN TIME 11.5 SECONDS (9.7-12.2)
[2017-10-07 16:01] LABS: ALB/GLOB RATIO 1.1 (1.0-2.1); ALBUMIN 4.1 g/dL (3.5-5.0); ALT/SGPT 18 U/L (9-52); AMYLASE 93 U/L (30-110); AST/SGOT 23 U/L (14-36); BLOOD UREA NITROGEN 12 mg/dL (7-17); CALCIUM 9.2 mg/dl (8.6-10.4); GFR AFRICAN-AMERICAN > 60; GFR NON-AFRICAN AMERICAN > 60; LIPASE 90 U/L (23-300)
[2017-10-07 16:13] LABS: CK-MB 0.62 ng/mL (0.0-3.38)
--- NOTE | 2017-10-07 19:32 | CP.PCM.HP ---
Past Patient History - Infectious Disease Hx of Infectious Diseases: None - Past Medical History & Family History Past Medical History?: Yes - Past Social History Smoking Status: Never Smoked - CARDIAC Hx Hypertension: Yes Hx Peripheral Edema: Yes - PULMONARY Hx Asthma: Yes Hx Chronic Obstructive Pulmonary Disease (COPD): Yes Hx Pneumonia: Yes (2016) Hx Sleep Apnea: Yes - NEUROLOGICAL Hx Neurological Disorder: No - HEENT Hx HEENT Problems: No - RENAL Hx Chronic Kidney Disease: No - ENDOCRINE/METABOLIC Hx Endocrine Disorders: No - HEMATOLOGICAL/ONCOLOGICAL Hx Blood Disorders: No - INTEGUMENTARY Hx Dermatological Problems: No - MUSCULOSKELETAL/RHEUMATOLOGICAL Hx Arthritis: Yes - GASTROINTESTINAL Hx Gastrointestinal Disorders: No Other/Comment: HERNIA REPAIR - GENITOURINARY/GYNECOLOGICAL Hx Genitourinary Disorders: No - PSYCHIATRIC Hx Anxiety: Yes Hx Bipolar Disorder: Yes Hx Depression: Yes Hx Substance Use: No - SURGICAL HISTORY Hx Surgeries: Yes Hx Section: Yes (x5) Hx Herniorrhaphy: Yes - ANESTHESIA Hx Anesthesia: Yes Hx Anesthesia Reactions: No Hx Malignant Hyperthermia: No Meds Allergies/Adverse Reactions: Allergies Allergy/AdvReac Type Severity Reaction Status Date / Time No Known Allergies Allergy Verified 10/07/17 14:05 Physical Exam - Constitutional Appears: Well - Head Exam Head Exam: ATRAUMATIC, NORMAL INSPECTION, NORMOCEPHALIC - Eye Exam Eye Exam: EOMI, Normal appearance, PERRL Pupil Exam: NORMAL ACCOMODATION, PERRL - ENT Exam ENT Exam: Mucous Membranes Moist, Normal Exam - Neck Exam Neck exam: Positive for: Normal Inspection - Respiratory Exam Respiratory Exam: Decreased Breath Sounds - Cardiovascular Exam Cardiovascular Exam: REGULAR RHYTHM, +S1, +S2 - GI/Abdominal Exam GI & Abdominal Exam: Diminished Bowel Sounds, Soft - Rectal Exam Rectal Exam: Deferred Results - Vital Signs Recent Vital Signs: Last Vital Signs Temp 99.0 F 10/07/17 18:08 Pulse 78 10/07/17 18:08 Resp 18 10/07/17 18:08 BP 147/58 L 10/07/17 18:08 Pulse Ox 97 10/07/17 18:30 - Labs Result Diagrams: 10/07/17 15:36 10/07/17 15:36 Labs: Laboratory Results - last 24 hr 10/07/17 10/07/17 10/07/17 15:36 15:36 15:36 WBC 6.7 RBC 4.55 Hgb 13.1 Hct 38.4 MCV 84.4 MCH 28.7 MCHC 34.0 RDW 14.0 Plt Count 263 MPV 8.6 Neut % (Auto) 78.8 H Lymph % (Auto) 15.5 L [place] % (Auto) 2.5 Eos % (Auto) 2.1 Baso % (Auto) 1.1 Neut # (Auto) 5.3 Lymph # (Auto) 1.0 [place] # (Auto) 0.2 Eos # (Auto) 0.1 Baso # (Auto) 0.1 PT 11.5 INR 1.1 APTT 35 H Sodium 144 Potassium 4.4 Chloride 104 Carbon Dioxide 29 Anion Gap 15 BUN 12 Creatinine 0.6 L Est GFR ( Amer) > 60 Est GFR (Non-Af Amer) > 60 Random Glucose 112 H Calcium 9.2 Magnesium 1.8 Total Bilirubin 0.5 AST 23 ALT 18 Alkaline Phosphatase 74 Total Creatine Kinase 72 CK-MB (Mass) 0.62 Troponin I < 0.0120 Total Protein 7.9 Albumin 4.1 Globulin 3.8 Albumin/Globulin Ratio 1.1 Amylase 93 Lipase 90
[2017-10-07] MEDS ORDERED: Albuterol HFA 90 mcg/actuation (8 g) IH PRN ×2 (20:27→21:30)
[2017-10-07] MEDS ORDERED: Home Med 1 UNIT (Naproxen [Naprosyn] 500 MG) PO PRN (20:27)
[2017-10-07 20:50] LABS: SQUAMOUS EPITHIAL 3 /hpf (0-5); URINE BACTERIA RARE (<OCC); URINE BILIRUBIN NEGATIVE (NEGATIVE); URINE BLOOD NEGATIVE (NEGATIVE); URINE CLARITY Clear (Clear); URINE COLOR Yellow (YELLOW); URINE GLUCOSE (UA) NORMAL (Normal); URINE LEUKOCYTE ESTERASE NEG Leu/uL (Negative); URINE PROTEIN NEGATIVE (NEGATIVE); URINE UROBILINOGEN NORMAL mg/dL (0.2-1.0)
[2017-10-07 21:21] LABS: CK-MB 0.58 ng/mL (0.0-3.38)
[2017-10-07] MEDS ORDERED: Naproxen 550 mg Tab PO PRN (22:00)
[2017-10-08] MEDS: Enoxaparin 40 mg Syringe SC SCH (09:29)
[2017-10-08] MEDS: Tmp-Smz 800 mg-160 mg DS Tab PO SCH ×2 (09:30→17:17)
[2017-10-08] MEDS ORDERED: Pantoprazole 40 mg EC Tab PO SCH (10:00)
[2017-10-08] MEDS ORDERED: LORATADINE PO SCH ×2 (10:00)
[2017-10-08] MEDS ORDERED: PSEUDOEPHEDRINE PO SCH ×2 (10:00)
[2017-10-08 10:22] LABS: CK-MB 0.47 ng/mL (0.0-3.38)
--- NOTE | 2017-10-08 10:28 | CP.PCM.CON ---
History of Present Illness - History of Present Illness History of Present Illness: I was asked to see patient by Dr Philly Ortiz. full consult to follow. Cardiac enzymes are negative cardiac cath 3 year ago no CAD. Recommend d/c home outpatient follow up Past Patient History - Infectious Disease Hx of Infectious Diseases: None - Past Medical History & Family History Past Medical History?: Yes - Past Social History Smoking Status: Never Smoked - CARDIAC Hx Hypertension: Yes Hx Peripheral Edema: Yes - PULMONARY Hx Asthma: Yes Hx Chronic Obstructive Pulmonary Disease (COPD): Yes Hx Pneumonia: Yes (2016) Hx Sleep Apnea: Yes - NEUROLOGICAL Hx Neurological Disorder: No - HEENT Hx HEENT Problems: No - RENAL Hx Chronic Kidney Disease: No - ENDOCRINE/METABOLIC Hx Endocrine Disorders: No - HEMATOLOGICAL/ONCOLOGICAL Hx Blood Disorders: No - INTEGUMENTARY Hx Dermatological Problems: No - MUSCULOSKELETAL/RHEUMATOLOGICAL Hx Arthritis: Yes - GASTROINTESTINAL Hx Gastrointestinal Disorders: No Other/Comment: HERNIA REPAIR - GENITOURINARY/GYNECOLOGICAL Hx Genitourinary Disorders: No - PSYCHIATRIC Hx Anxiety: Yes Hx Bipolar Disorder: Yes Hx Depression: Yes Hx Substance Use: No - SURGICAL HISTORY Hx Surgeries: Yes Hx Section: Yes (x5) Hx Herniorrhaphy: Yes - ANESTHESIA Hx Anesthesia: Yes Hx Anesthesia Reactions: No Hx Malignant Hyperthermia: No Meds Allergies/Adverse Reactions: Allergies Allergy/AdvReac Type Severity Reaction Status Date / Time No Known Allergies Allergy Verified 10/07/17 14:05 - Medications Medications: Current Medications Albuterol (Ventolin Hfa 90 Mcg/Actuation (8 G)) 1 puff IH Q4 PRN PRN Reason: Wheezing Amlodipine Besylate (Norvasc) 10 mg PO DAILY [facility] Last Admin: 10/08/17 09:29 Dose: 10 mg Aspirin (Aspirin) 325 mg PO DAILY [facility] Last Admin: 10/08/17 09:29 Dose: 325 mg Clonidine HCl (Catapres) 0.1 mg PO TID [facility] Last Admin: 10/08/17 09:30 Dose: 0.1 mg Clopidogrel Bisulfate (Plavix) 75 mg PO DAILY [facility] Last Admin: 10/08/17 09:29 Dose: 75 mg Diphenhydramine HCl (Benadryl) 50 mg PO Q6H PRN PRN Reason: itching Last Admin: 10/08/17 02:29 Dose: 50 mg Enoxaparin Sodium (Lovenox) 40 mg SC DAILY [facility] Last Admin: 10/08/17 09:29 Dose: 40 mg Fluticasone Propionate (Flonase) 1 spr NS DAILY [facility] Furosemide (Lasix) 20 mg PO DAILY [facility] Last Admin: 10/08/17 09:44 Dose: 20 mg Home Med (Loratadine/Pseudoephedrine [Claritin-D 24 Hour Tablet]) 1 each PO DAILY [facility] Losartan Potassium (Cozaar) 100 mg PO DAILY [facility] Last Admin: 10/08/17 09:29 Dose: 100 mg Montelukast Sodium (Singulair) 10 mg PO DAILY [facility] Last Admin: 10/08/17 09:29 Dose: 10 mg Naproxen (Anaprox Ds) 550 mg PO BID PRN PRN Reason: pain Last Admin: 10/08/17 09:29 Dose: 550 mg Pantoprazole Sodium (Protonix Ec Tab) 40 mg PO DAILY [facility] Last Admin: 10/08/17 09:29 Dose: 40 mg Prednisone (Prednisone Tab) 40 mg PO DAILY [facility] Last Admin: 10/08/17 09:29 Dose: 40 mg Trimethoprim/Sulfamethoxazole (Bactrim Ds Tab) 1 tab PO BID [facility] PRN Reason: Protocol Last Admin: 10/08/17 09:30 Dose: 1 tab Results - Vital Signs Recent Vital Signs: Last Vital Signs Temp 98.1 F 10/08/17 08:00 Pulse 70 10/08/17 08:00 Resp 20 10/08/17 08:00 BP 124/70 10/08/17 09:44 Pulse Ox 96 10/08/17 08:00 - Labs Result Diagrams: 10/07/17 15:36 10/07/17 15:36 Labs: Laboratory Results - last 24 hr 10/07/17 10/07/17 10/07/17 15:36 15:36 15:36 WBC 6.7 RBC 4.55 Hgb 13.1 Hct 38.4 MCV 84.4 MCH 28.7 MCHC 34.0 RDW 14.0 Plt Count 263 MPV 8.6 Neut % (Auto) 78.8 H Lymph % (Auto) 15.5 L [place] % (Auto) 2.5 Eos % (Auto) 2.1 Baso % (Auto) 1.1 Neut # (Auto) 5.3 Lymph # (Auto) 1.0 [place] # (Auto) 0.2 Eos # (Auto) 0.1 Baso # (Auto) 0.1 PT 11.5 INR 1.1 APTT 35 H Sodium 144 Potassium 4.4 Chloride 104 Carbon Dioxide 29 Anion Gap 15 BUN 12 Creatinine 0.6 L Est GFR ( Amer) > 60 Est GFR (Non-Af Amer) > 60 Random Glucose 112 H Calcium 9.2 Magnesium 1.8 Total Bilirubin 0.5 AST 23 ALT 18 Alkaline Phosphatase 74 Total Creatine Kinase 72 CK-MB (Mass) 0.62 Troponin I < 0.0120 Total Protein 7.9 Albumin 4.1 Globulin 3.8 Albumin/Globulin Ratio 1.1 Amylase 93 Lipase 90 Urine Color Urine Clarity Urine pH Ur Specific [place] Urine Protein Urine Glucose (UA) Urine Ketones Urine Blood Urine Nitrate Urine Bilirubin Urine Urobilinogen Ur Leukocyte Esterase Urine WBC (Auto) Urine RBC (Auto) Ur Squamous Epith Cells Urine Bacteria 10/07/17 10/07/17 10/08/17 20:37 20:37 07:16 WBC RBC Hgb Hct MCV MCH MCHC RDW Plt Count MPV Neut % (Auto) Lymph % (Auto) [place] % (Auto) Eos % (Auto) Baso % (Auto) Neut # (Auto) Lymph # (Auto) [place] # (Auto) Eos # (Auto) Baso # (Auto) PT INR APTT Sodium Potassium Chloride Carbon Dioxide Anion Gap BUN Creatinine Est GFR ( Amer) Est GFR (Non-Af Amer) Random Glucose Calcium Magnesium Total Bilirubin AST ALT Alkaline Phosphatase Total Creatine Kinase 59 34 CK-MB (Mass) 0.58 0.47 Troponin I < 0.0120 < 0.0120 Total Protein Albumin Globulin Albumin/Globulin Ratio Amylase Lipase Urine Color Yellow Urine Clarity Clear Urine pH 8.0 Ur Specific [place] 1.017 Urine Protein Negative Urine Glucose (UA) Normal Urine Ketones Negative Urine Blood Negative Urine Nitrate Negative Urine Bilirubin Negative Urine Urobilinogen Normal Ur Leukocyte Esterase Neg Urine WBC (Auto) < 1 Urine RBC (Auto) < 1 Ur Squamous Epith Cells 3 Urine Bacteria Rare
[2017-10-08] MEDS: Fluticasone Nasal 50 mcg/Spray NS SCH (11:00)
--- NOTE | 2017-10-08 11:35 | CP.PCM.CON ---
History of Present Illness - History of Present Illness History of Present Illness: I was asked to see patient by Dr Waldron for chest pain. Patient is a 51 year old femle with PMH HTN, hypercholesterolemia who presents with chest pain. She states the pain has been chronic and occurs at rest. the patient describes a pressure like sensation in the middle of the chest. Symptoms occur at rest. Of note she had a normal cardiac cath 3 year ago. Review of Systems - Constitutional Constitutional: absent: As Per HPI, Anorexia, Chills, Daytime Sleepiness, Excessive Sweating, Fatigue, Fever, Frequent Falls, Headache, Increased Appetite , Lethargy, Malaise, Night Sweats, Snoring, Sleep Apnea, Weight Gain, Weight Loss, Weakness, Other - EENT Eyes: absent: As Per HPI, Blind Spots, Blurred Vision, Change in Vision, Decreased Night Vision, Diplopia, Discharge, Dry Eye, Exophthalmos, Floaters, Irritation, Itchy Eyes, Loss of Peripheral Vision, Pain, Photophobia, Requires Corrective Lenses, Sees Flashes, Spots in Vision, Tunnel Vision, Other Visual Disturbances, Loss of Vision, Other Ears: absent: As Per HPI, Decreased Hearing, Ear Discharge, Ear Pain, Tinnitus, Abnormal Hearing, Disequilibrium, Dizziness, Other Nose/Mouth/Throat: absent: As Per HPI, Epistaxis, Nasal Congestion, Nasal Discharge, Nasal Obstruction, Nasal Trauma, Nose Pain, Post Nasal Drip, Sinus Pain, Sinus Pressure, Bleeding Gums, Change in Voice, Dental Pain, Dry Mouth, Dysphagia, Halitosis, Hoarsness, Lip Swelling, Mouth Lesions, Mouth Pain, Odynophagia, Sore Throat, Throat Swelling, Tongue Swelling, Facial Pain, Neck Pain, Neck Mass, Other - Cardiovascular Cardiovascular: absent: As Per HPI, Acrocyanosis, Chest Pain, Chest Pain at Rest , Chest Pain with Activity, Claudication, Diaphoresis, Dyspnea, Dyspnea on Exertion, Edema, Irregular Heart Rhythm, Pain Radiating to Arm/Neck/Jaw, Leg Edema, Leg Ulcers, Lightheadedness, Orthopnea, Palpitations, Paroxysmal Nocturnal Dyspnea, Pedal Edema, Radiating Pain, Rapid Heart Rate, Slow Heart Rate, Syncope, Other - Respiratory Respiratory: Dyspnea - Gastrointestinal Gastrointestinal: absent: As Per HPI, Abdominal Pain, Belching, Bloating, Change in Bowel Habits, Change in Stool Character, Coffee Ground Emesis, Constipation, Cramping, Diarrhea, Dyspepsia, Dysphagia, Early Satiety, Excessive Flatus, Fecal Incontinence, Heartburn, Hematemesis, Hematochezia, Loose Stools, Melena, Nausea, Odynophagia, Temesmus, Vomiting, Other - Musculoskeletal Musculoskeletal: absent: As Per HPI, Abnormal Gait, Arthralgias, Atrophy, Back Pain, Deformity, Joint Swelling, Limited Range of Motion, Loss of Height, Muscle Cramps, Muscle Weakness, Myalgias, Neck Pain, Numbness, Radiating Pain into Limb, Stiffness, Tingling, Other - Integumentary Integumentary: absent: As Per HPI, Acne, Alopecia, Bleeding Lesions, Change in Hair, Change in Nails, Change in Pigmentation, Changing Lesions, Dry Skin, Erythema, Furuncle, Hirsutism, Lesions, New Lesions, Non-Healing Lesions, Photosensitivity, Pruritus, Rash, Skin Pain, Skin Ulcer, Sores, Striae, Swelling , Unusual Bruising, Wounds, Jaundice, Other - Neurological Neurological: absent: As Per HPI, Abnormal Gait, Abnormal Hearing, Abnormal Movements, Abnormal Speech, Behavioral Changes, Burning Sensations, Confusion, Convulsions, Disequilibrium, Dizziness, Numbness, Focal Weakness, Frequent Falls , Headaches, Lack of Coordination, Loss of Vision, Memory Loss, Paresthesias, Radicular Pain, Restless Legs, Sensory Deficit, Syncope, Tingling, Tremor, Vertigo, Weakness, Other Visual Disturbances, Other - Psychiatric Psychiatric: absent: As Per HPI, Abnormal Sleep Pattern, Anhedonia, Anxiety, Auditory Hallucinations, Behavioral Changes, Change in Appetite, Change in Libido, Confusion, Depression, Difficulty Concentrating, Hallucinations, Homicidal Ideation, Hopelessness, Irritability, Memory Loss, Mood Swings, Panic Attacks, Paranoia, Suicidal Ideation, Visual Hallucinations, Tactile Hallucinations, Other - Endocrine Endocrine: absent: As Per HPI, Change in Body Appearance, Change in Libido, Cold Intolorance, Deepening of Voice, Excessive Sweating, Fatigue, Flushing, Heat Intolorance, Increase in Ring/Shoe/Hat Size, Palpitations, Polydipsia, Polyphagia, Polyuria, Other - Hematologic/Lymphatic Hematologic: absent: As Per HPI, Easy Bleeding, Easy Bruising, Lymphadenopathy, Other Past Patient History - Infectious Disease Hx of Infectious Diseases: None - Past Medical History & Family History Past Medical History?: Yes - Past Social History Smoking Status: Never Smoked - CARDIAC Hx Hypertension: Yes Hx Peripheral Edema: Yes - PULMONARY Hx Asthma: Yes Hx Chronic Obstructive Pulmonary Disease (COPD): Yes Hx Pneumonia: Yes (2016) Hx Sleep Apnea: Yes - NEUROLOGICAL Hx Neurological Disorder: No - HEENT Hx HEENT Problems: No - RENAL Hx Chronic Kidney Disease: No - ENDOCRINE/METABOLIC Hx Endocrine Disorders: No - HEMATOLOGICAL/ONCOLOGICAL Hx Blood Disorders: No - INTEGUMENTARY Hx Dermatological Problems: No - MUSCULOSKELETAL/RHEUMATOLOGICAL Hx Arthritis: Yes - GASTROINTESTINAL Hx Gastrointestinal Disorders: No Other/Comment: HERNIA REPAIR - GENITOURINARY/GYNECOLOGICAL Hx Genitourinary Disorders: No - PSYCHIATRIC Hx Anxiety: Yes Hx Bipolar Disorder: Yes Hx Depression: Yes Hx Substance Use: No - SURGICAL HISTORY Hx Surgeries: Yes Hx Section: Yes (x5) Hx Herniorrhaphy: Yes - ANESTHESIA Hx Anesthesia: Yes Hx Anesthesia Reactions: No Hx Malignant Hyperthermia: No Meds Allergies/Adverse Reactions: Allergies Allergy/AdvReac Type Severity Reaction Status Date / Time No Known Allergies Allergy Verified 10/07/17 14:05 - Medications Medications: Current Medications Albuterol (Ventolin Hfa 90 Mcg/Actuation (8 G)) 1 puff IH Q4 PRN PRN Reason: Wheezing Amlodipine Besylate (Norvasc) 10 mg PO DAILY [facility] Last Admin: 10/08/17 09:29 Dose: 10 mg Aspirin (Aspirin) 325 mg PO DAILY [facility] Last Admin: 10/08/17 09:29 Dose: 325 mg Clonidine HCl (Catapres) 0.1 mg PO TID [facility] Last Admin: 10/08/17 09:30 Dose: 0.1 mg Clopidogrel Bisulfate (Plavix) 75 mg PO DAILY [facility] Last Admin: 10/08/17 09:29 Dose: 75 mg Diphenhydramine HCl (Benadryl) 50 mg PO Q6H PRN PRN Reason: itching Last Admin: 10/08/17 02:29 Dose: 50 mg Enoxaparin Sodium (Lovenox) 40 mg SC DAILY [facility] Last Admin: 10/08/17 09:29 Dose: 40 mg Fluticasone Propionate (Flonase) 1 spr NS DAILY [facility] Furosemide (Lasix) 20 mg PO DAILY [facility] Last Admin: 10/08/17 09:44 Dose: 20 mg Home Med (Loratadine/Pseudoephedrine [Claritin-D 24 Hour Tablet]) 1 each PO DAILY [facility] Losartan Potassium (Cozaar) 100 mg PO DAILY [facility] Last Admin: 10/08/17 09:29 Dose: 100 mg Montelukast Sodium (Singulair) 10 mg PO DAILY [facility] Last Admin: 10/08/17 09:29 Dose: 10 mg Naproxen (Anaprox Ds) 550 mg PO BID PRN PRN Reason: pain Last Admin: 10/08/17 09:29 Dose: 550 mg Pantoprazole Sodium (Protonix Ec Tab) 40 mg PO DAILY [facility] Last Admin: 10/08/17 09:29 Dose: 40 mg Prednisone (Prednisone Tab) 40 mg PO DAILY [facility] Last Admin: 10/08/17 09:29 Dose: 40 mg Trimethoprim/Sulfamethoxazole (Bactrim Ds Tab) 1 tab PO BID [facility] PRN Reason: Protocol Last Admin: 10/08/17 09:30 Dose: 1 tab Results - Vital Signs Recent Vital Signs: Last Vital Signs Temp 98.1 F 10/08/17 08:00 Pulse 70 10/08/17 08:00 Resp 20 10/08/17 08:00 BP 124/70 10/08/17 09:44 Pulse Ox 96 10/08/17 08:00 - Labs Result Diagrams: 10/07/17 15:36 10/07/17 15:36 Labs: Laboratory Results - last 24 hr 10/07/17 10/07/17 10/07/17 15:36 15:36 15:36 WBC 6.7 RBC 4.55 Hgb 13.1 Hct 38.4 MCV 84.4 MCH 28.7 MCHC 34.0 RDW 14.0 Plt Count 263 MPV 8.6 Neut % (Auto) 78.8 H Lymph % (Auto) 15.5 L [place] % (Auto) 2.5 Eos % (Auto) 2.1 Baso % (Auto) 1.1 Neut # (Auto) 5.3 Lymph # (Auto) 1.0 [place] # (Auto) 0.2 Eos # (Auto) 0.1 Baso # (Auto) 0.1 PT 11.5 INR 1.1 APTT 35 H Sodium 144 Potassium 4.4 Chloride 104 Carbon Dioxide 29 Anion Gap 15 BUN 12 Creatinine 0.6 L Est GFR ( Amer) > 60 Est GFR (Non-Af Amer) > 60 Random Glucose 112 H Calcium 9.2 Magnesium 1.8 Total Bilirubin 0.5 AST 23 ALT 18 Alkaline Phosphatase 74 Total Creatine Kinase 72 CK-MB (Mass) 0.62 Troponin I < 0.0120 Total Protein 7.9 Albumin 4.1 Globulin 3.8 Albumin/Globulin Ratio 1.1 Amylase 93 Lipase 90 Urine Color Urine Clarity Urine pH Ur Specific [place] Urine Protein Urine Glucose (UA) Urine Ketones Urine Blood Urine Nitrate Urine Bilirubin Urine Urobilinogen Ur Leukocyte Esterase Urine WBC (Auto) Urine RBC (Auto) Ur Squamous Epith Cells Urine Bacteria 10/07/17 10/07/17 10/08/17 20:37 20:37 07:16 WBC RBC Hgb Hct MCV MCH MCHC RDW Plt Count MPV Neut % (Auto) Lymph % (Auto) [place] % (Auto) Eos % (Auto) Baso % (Auto) Neut # (Auto) Lymph # (Auto) [place] # (Auto) Eos # (Auto) Baso # (Auto) PT INR APTT Sodium Potassium Chloride Carbon Dioxide Anion Gap BUN Creatinine Est GFR ( Amer) Est GFR (Non-Af Amer) Random Glucose Calcium Magnesium Total Bilirubin AST ALT Alkaline Phosphatase Total Creatine Kinase 59 34 CK-MB (Mass) 0.58 0.47 Troponin I < 0.0120 < 0.0120 Total Protein Albumin Globulin Albumin/Globulin Ratio Amylase Lipase Urine Color Yellow Urine Clarity Clear Urine pH 8.0 Ur Specific [place] 1.017 Urine Protein Negative Urine Glucose (UA) Normal Urine Ketones Negative Urine Blood Negative Urine Nitrate Negative Urine Bilirubin Negative Urine Urobilinogen Normal Ur Leukocyte Esterase Neg Urine WBC (Auto) < 1 Urine RBC (Auto) < 1 Ur Squamous Epith Cells 3 Urine Bacteria Rare - EKG Data EKG Interpreted by: Myself EKG shows normal: Sinus rhythm - EKG Data When Compared to Previous EKG: Significant Changes Assessment & Plan (1) Chest pain Assessment and Plan: patient had a previous normal cardiac cath recommend medical tehapy. can d/c home. Status: Acute (2) HTN (hypertension) Assessment and Plan: blood pressure is controlled Status: Acute
[2017-10-08 12:17] LABS: CK-MB 0.52 ng/mL (0.0-3.38)
[2017-10-08] MEDS: Albuterol-Ipratrop 3 mg / 0.5 (3 ml) UD INH PRN (14:43)
--- NOTE | 2017-10-08 15:43 | CP.PCM.PN ---
Subjective - Date & Time of Evaluation Date of Evaluation: 10/08/17 Time of Evaluation: 11:00 - Subjective Subjective: clinically same Objective - Vital Signs/Intake and Output Vital Signs (last 24 hours): Temp Pulse Resp BP Pulse Ox 98.1 F 70 20 124/70 96 10/08/17 08:00 10/08/17 08:00 10/08/17 08:00 10/08/17 09:44 10/08/17 11:05 Intake and Output: 10/08/17 10/08/17 06:59 18:59 Intake Total 370 600 Balance 370 600 - Medications Medications: Current Medications Albuterol (Ventolin Hfa 90 Mcg/Actuation (8 G)) 1 puff IH Q4 PRN PRN Reason: Wheezing Albuterol/Ipratropium (Duoneb 3 Mg/0.5 Mg (3 Ml) Ud) 3 ml INH RQ6 PRN PRN Reason: Shortness Of Breath/wheezing Last Admin: 10/08/17 14:43 Dose: 3 ml Amlodipine Besylate (Norvasc) 10 mg PO DAILY [facility] Last Admin: 10/08/17 09:29 Dose: 10 mg Aspirin (Aspirin) 325 mg PO DAILY [facility] Last Admin: 10/08/17 09:29 Dose: 325 mg Clonidine HCl (Catapres) 0.1 mg PO TID [facility] Last Admin: 10/08/17 13:07 Dose: 0.1 mg Clopidogrel Bisulfate (Plavix) 75 mg PO DAILY [facility] Last Admin: 10/08/17 09:29 Dose: 75 mg Diphenhydramine HCl (Benadryl) 50 mg PO Q6H PRN PRN Reason: itching Last Admin: 10/08/17 02:29 Dose: 50 mg Enoxaparin Sodium (Lovenox) 40 mg SC DAILY [facility] Last Admin: 10/08/17 09:29 Dose: 40 mg Fluticasone Propionate (Flonase) 1 spr NS DAILY [facility] Last Admin: 10/08/17 11:00 Dose: 1 spr Furosemide (Lasix) 20 mg PO DAILY [facility] Last Admin: 10/08/17 09:44 Dose: 20 mg Home Med (Loratadine/Pseudoephedrine [Claritin-D 24 Hour Tablet]) 1 each PO DAILY [facility] Losartan Potassium (Cozaar) 100 mg PO DAILY [facility] Last Admin: 10/08/17 09:29 Dose: 100 mg Montelukast Sodium (Singulair) 10 mg PO DAILY [facility] Last Admin: 10/08/17 09:29 Dose: 10 mg Naproxen (Anaprox Ds) 550 mg PO BID PRN PRN Reason: pain Last Admin: 10/08/17 09:29 Dose: 550 mg Pantoprazole Sodium (Protonix Ec Tab) 40 mg PO DAILY [facility] Last Admin: 10/08/17 09:29 Dose: 40 mg Prednisone (Prednisone Tab) 40 mg PO DAILY [facility] Last Admin: 10/08/17 09:29 Dose: 40 mg Trimethoprim/Sulfamethoxazole (Bactrim Ds Tab) 1 tab PO BID [facility] PRN Reason: Protocol Last Admin: 10/08/17 09:30 Dose: 1 tab - Labs Labs: 10/07/17 15:36 10/07/17 15:36 PT 11.5 SECONDS (9.7-12.2) 10/07/17 15:36 INR 1.1 10/07/17 15:36 APTT 35 SECONDS (21-34) H 10/07/17 15:36 - Constitutional Appears: Well - Head Exam Head Exam: ATRAUMATIC, NORMAL INSPECTION, NORMOCEPHALIC - Eye Exam Eye Exam: EOMI, Normal appearance, PERRL Pupil Exam: NORMAL ACCOMODATION, PERRL - ENT Exam ENT Exam: Mucous Membranes Moist, Normal Exam - Neck Exam Neck Exam: Full ROM, Normal Inspection. absent: Lymphadenopathy - Respiratory Exam Respiratory Exam: Decreased Breath Sounds - Cardiovascular Exam Cardiovascular Exam: REGULAR RHYTHM, +S1, +S2 - GI/Abdominal Exam GI & Abdominal Exam: Soft, Diminished Bowel Sounds - Rectal Exam Rectal Exam: Deferred
[2017-10-09] MEDS: Albuterol-Ipratrop 3 mg / 0.5 (3 ml) UD INH PRN ×3 (04:38→13:43)
[2017-10-09] MEDS: Enoxaparin 40 mg Syringe SC SCH (09:05)
[2017-10-09] MEDS: Tmp-Smz 800 mg-160 mg DS Tab PO SCH ×2 (09:07→17:40)
[2017-10-09] MEDS: Fluticasone Nasal 50 mcg/Spray NS SCH (09:07)
--- NOTE | 2017-10-09 09:21 | RAD ---
Pelvis and left hip two views History: Hip pain. Comparison: None available. Findings: Mild to moderate degenerative changes of the bilateral hips without evidence of acute displaced fracture or dislocation. Mild osteitis pubis with sclerosis at pubic symphysis. Lucency through the right lesser trochanter is likely artifact as it appears to extend into the soft tissues. Degenerative changes in the lower lumbar spine. Impression: Degenerative changes. If pain persists, consider MRI.
--- NOTE | 2017-10-09 13:21 | CP.PCM.CON ---
History of Present Illness - History of Present Illness History of Present Illness: Pulmonary Evalution, Covering Dr. Alva The patient was Seen and examined by me at the bedside, Events reviewed 51 Years old non s Morbidly Obesity Female with BR Asthma, Obesitly hypoventilation and Severe obstructive sleep apnea with hypoxemia. Who initially presents to the emergency department with complaints of chest pain for the past four days. Sleep study recently done at [facility],(AHI >30,), she was discribed CPAP and has not receive it yet She is working on loosing Wt, lost 7 Lbs so far During hospitalization, she was noted to be hypoxemic, requiring increasing Oxgen to maintain adequate saturations Pt AAO x3. Alert, follows commands Afebrile, NSR on the monitor No recent pneumonia or hospitalization ROS: Denies any chest pain, SOB or Palpitations Excessive daytime sleepiness, loud chronic snoring, un-refreshed interrupted sleep with morning headache RECOMMENDATIONS: 1. Weight loss through diet and exercise regimen. 2. CPAP with heated humidification after a mask fitting is performed 3. positional therapy, Avoidance of supine sleep may be helpful 4. Ordered routine pulmonary function testing when back to baseline, Likely RESTRICTIVE VENTILATORY DEFECT 5. After discharge, Follow-up with Pulmonary/Sleep Disorders Specialist Past Patient History - Infectious Disease Hx of Infectious Diseases: None - Past Medical History & Family History Past Medical History?: Yes - Past Social History Smoking Status: Never Smoked - CARDIAC Hx Hypertension: Yes Hx Peripheral Edema: Yes - PULMONARY Hx Asthma: Yes Hx Chronic Obstructive Pulmonary Disease (COPD): Yes Hx Pneumonia: Yes (2016) Hx Sleep Apnea: Yes - NEUROLOGICAL Hx Neurological Disorder: No - HEENT Hx HEENT Problems: No - RENAL Hx Chronic Kidney Disease: No - ENDOCRINE/METABOLIC Hx Endocrine Disorders: No - HEMATOLOGICAL/ONCOLOGICAL Hx Blood Disorders: No - INTEGUMENTARY Hx Dermatological Problems: No - MUSCULOSKELETAL/RHEUMATOLOGICAL Hx Arthritis: Yes - GASTROINTESTINAL Hx Gastrointestinal Disorders: No Other/Comment: HERNIA REPAIR - GENITOURINARY/GYNECOLOGICAL Hx Genitourinary Disorders: No - PSYCHIATRIC Hx Anxiety: Yes Hx Bipolar Disorder: Yes Hx Depression: Yes Hx Substance Use: No - SURGICAL HISTORY Hx Surgeries: Yes Hx Section: Yes (x5) Hx Herniorrhaphy: Yes - ANESTHESIA Hx Anesthesia: Yes Hx Anesthesia Reactions: No Hx Malignant Hyperthermia: No Meds Allergies/Adverse Reactions: Allergies Allergy/AdvReac Type Severity Reaction Status Date / Time No Known Allergies Allergy Verified 10/07/17 14:05 - Medications Medications: Current Medications Albuterol (Ventolin Hfa 90 Mcg/Actuation (8 G)) 1 puff IH Q4 PRN PRN Reason: Wheezing Albuterol/Ipratropium (Duoneb 3 Mg/0.5 Mg (3 Ml) Ud) 3 ml INH RQ6 PRN PRN Reason: Shortness Of Breath/wheezing Last Admin: 10/09/17 07:37 Dose: 3 ml Amlodipine Besylate (Norvasc) 10 mg PO DAILY [facility] Last Admin: 10/09/17 09:06 Dose: 10 mg Aspirin (Aspirin) 325 mg PO DAILY [facility] Last Admin: 10/09/17 09:06 Dose: 325 mg Clonidine HCl (Catapres) 0.1 mg PO TID [facility] Last Admin: 10/09/17 09:06 Dose: 0.1 mg Clopidogrel Bisulfate (Plavix) 75 mg PO DAILY [facility] Last Admin: 10/09/17 09:06 Dose: 75 mg Diphenhydramine HCl (Benadryl) 50 mg PO Q6H PRN PRN Reason: itching Last Admin: 10/09/17 05:45 Dose: 50 mg Enoxaparin Sodium (Lovenox) 40 mg SC DAILY [facility] Last Admin: 10/09/17 09:05 Dose: 40 mg Famotidine (Pepcid) 20 mg PO BID [facility] Last Admin: 10/09/17 09:45 Dose: 20 mg Fluticasone Propionate (Flonase) 1 spr NS DAILY [facility] Last Admin: 10/09/17 09:07 Dose: 1 spr Furosemide (Lasix) 20 mg PO DAILY [facility] Last Admin: 10/09/17 09:07 Dose: 20 mg Home Med (Loratadine/Pseudoephedrine [Claritin-D 24 Hour Tablet]) 1 each PO DAILY [facility] Ceftriaxone Sodium 1 gm/ (Sodium Chloride) 100 mls @ 100 mls/hr IVPB DAILY [facility] PRN Reason: Protocol Azithromycin 500 mg/ Sodium (Chloride) 250 mls @ 250 mls/hr IVPB DAILY [facility] PRN Reason: Protocol Losartan Potassium (Cozaar) 100 mg PO DAILY [facility] Last Admin: 10/09/17 09:08 Dose: 100 mg Montelukast Sodium (Singulair) 10 mg PO DAILY [facility] Last Admin: 10/09/17 09:06 Dose: 10 mg Naproxen (Anaprox Ds) 550 mg PO BID PRN PRN Reason: pain Last Admin: 10/08/17 09:29 Dose: 550 mg Prednisone (Prednisone Tab) 40 mg PO DAILY [facility] Last Admin: 10/09/17 09:06 Dose: 40 mg Trimethoprim/Sulfamethoxazole (Bactrim Ds Tab) 1 tab PO BID [facility] PRN Reason: Protocol Last Admin: 10/09/17 09:07 Dose: 1 tab Results - Vital Signs Recent Vital Signs: Last Vital Signs Temp 97.8 F 10/09/17 04:00 Pulse 63 10/09/17 07:05 Resp 20 10/09/17 04:00 BP 114/70 10/09/17 09:07 Pulse Ox 97 10/09/17 07:05 - Labs Result Diagrams: 10/07/17 15:36 10/07/17 15:36 Labs: Laboratory Results - last 24 hr 10/09/17 10/09/17 11:21 11:21 Hemoglobin A1c 5.7 Vitamin B12 404 TSH 3rd Generation 0.99 Assessment & Plan (1) VEL (obstructive sleep apnea) Status: Acute (2) EVL and COPD overlap syndrome Status: Acute (3) Allergic asthma with acute exacerbation Status: Acute (4) Morbid obesity Status: Acute (5) Prophylactic measure Status: Acute
[2017-10-09] MEDS: Azithromycin 500 MG in Sodium Chloride 0.9% 250 ML IVPB SCH (14:44)
--- NOTE | 2017-10-09 16:09 | CP.PCM.PN ---
Subjective - Date & Time of Evaluation Date of Evaluation: 10/09/17 Time of Evaluation: 11:00 - Subjective Subjective: clinically same Objective - Vital Signs/Intake and Output Vital Signs (last 24 hours): Temp Pulse Resp BP Pulse Ox 97.8 F 63 20 114/70 97 10/09/17 04:00 10/09/17 07:05 10/09/17 04:00 10/09/17 09:07 10/09/17 07:05 Intake and Output: 10/09/17 10/09/17 06:59 18:59 Intake Total 240 850 Balance 240 850 - Medications Medications: Current Medications Albuterol (Ventolin Hfa 90 Mcg/Actuation (8 G)) 1 puff IH Q4 PRN PRN Reason: Wheezing Albuterol/Ipratropium (Duoneb 3 Mg/0.5 Mg (3 Ml) Ud) 3 ml INH RQ6 PRN PRN Reason: Shortness Of Breath/wheezing Last Admin: 10/09/17 13:43 Dose: 3 ml Amlodipine Besylate (Norvasc) 10 mg PO DAILY [facility] Last Admin: 10/09/17 09:06 Dose: 10 mg Aspirin (Aspirin) 325 mg PO DAILY [facility] Last Admin: 10/09/17 09:06 Dose: 325 mg Clonidine HCl (Catapres) 0.1 mg PO TID [facility] Last Admin: 10/09/17 13:51 Dose: 0.1 mg Clopidogrel Bisulfate (Plavix) 75 mg PO DAILY [facility] Last Admin: 10/09/17 09:06 Dose: 75 mg Diphenhydramine HCl (Benadryl) 50 mg PO Q6H PRN PRN Reason: itching Last Admin: 10/09/17 05:45 Dose: 50 mg Enoxaparin Sodium (Lovenox) 40 mg SC DAILY [facility] Last Admin: 10/09/17 09:05 Dose: 40 mg Famotidine (Pepcid) 20 mg PO BID [facility] Last Admin: 10/09/17 09:45 Dose: 20 mg Fluticasone Propionate (Flonase) 1 spr NS DAILY [facility] Last Admin: 10/09/17 09:07 Dose: 1 spr Furosemide (Lasix) 20 mg PO DAILY [facility] Last Admin: 10/09/17 09:07 Dose: 20 mg Home Med (Loratadine/Pseudoephedrine [Claritin-D 24 Hour Tablet]) 1 each PO DAILY [facility] Ceftriaxone Sodium 1 gm/ (Sodium Chloride) 100 mls @ 200 mls/hr IVPB DAILY [facility] PRN Reason: Protocol Last Admin: 10/09/17 14:00 Dose: 200 mls/hr Azithromycin 500 mg/ Sodium (Chloride) 250 mls @ 250 mls/hr IVPB DAILY@1430 [facility] PRN Reason: Protocol Last Admin: 10/09/17 14:44 Dose: 250 mls/hr Losartan Potassium (Cozaar) 100 mg PO DAILY [facility] Last Admin: 10/09/17 09:08 Dose: 100 mg Montelukast Sodium (Singulair) 10 mg PO DAILY [facility] Last Admin: 10/09/17 09:06 Dose: 10 mg Naproxen (Anaprox Ds) 550 mg PO BID PRN PRN Reason: pain Last Admin: 10/08/17 09:29 Dose: 550 mg Prednisone (Prednisone Tab) 40 mg PO DAILY [facility] Last Admin: 10/09/17 09:06 Dose: 40 mg Trimethoprim/Sulfamethoxazole (Bactrim Ds Tab) 1 tab PO BID [facility] PRN Reason: Protocol Last Admin: 10/09/17 09:07 Dose: 1 tab - Labs Labs: 10/07/17 15:36 10/07/17 15:36 PT 11.5 SECONDS (9.7-12.2) 10/07/17 15:36 INR 1.1 10/07/17 15:36 APTT 35 SECONDS (21-34) H 10/07/17 15:36 - Constitutional Appears: Well - Head Exam Head Exam: ATRAUMATIC, NORMAL INSPECTION, NORMOCEPHALIC - Eye Exam Eye Exam: EOMI, Normal appearance, PERRL Pupil Exam: NORMAL ACCOMODATION, PERRL - ENT Exam ENT Exam: Mucous Membranes Moist, Normal Exam - Neck Exam Neck Exam: Full ROM, Normal Inspection. absent: Lymphadenopathy - Respiratory Exam Respiratory Exam: Decreased Breath Sounds - Cardiovascular Exam Cardiovascular Exam: REGULAR RHYTHM, +S1, +S2 - GI/Abdominal Exam GI & Abdominal Exam: Soft, Diminished Bowel Sounds - Rectal Exam Rectal Exam: Deferred
[2017-10-10 00:50] VITALS: TEMP 98.2
[2017-10-10 07:40] VITALS: PULSE 68; RESP 18; O2SAT 100
[2017-10-10] MEDS: Albuterol-Ipratrop 3 mg / 0.5 (3 ml) UD INH PRN (07:49)
--- NOTE | 2017-10-10 08:55 | CP.PCM.PN ---
Subjective - Date & Time of Evaluation Date of Evaluation: 10/10/17 Time of Evaluation: 09:11 - Subjective Subjective: Pulmonology Progress Note- Dr. Alva's service Patient seen and examined in no acute distress. Patient states that her symptoms have improved. Patient further states that although she does not have a history of smoking, her grown children have been smoking in areas of the house for the past 8 years. Patient states that she keeps telling them to quit; however they do not listen to her. Within the past five months, she was prescribed a (yellow pump) by one of her doctors; however she states that she has not continued with the inhaler because of adverse side effects. (She felt ill afterwards). Her primary doctor prescribed a different regiment including ( albuterol inhaler, prednisone, singulair and flonase. Patient further states that she does not take the prednisone daily- rather two tablets a month if necessary. Patient went for pulmonary function testing today. Objective - Vital Signs/Intake and Output Vital Signs (last 24 hours): Temp Pulse Resp BP Pulse Ox 98.2 F 68 18 103/57 L 100 10/10/17 07:20 10/10/17 07:20 10/10/17 07:20 10/10/17 07:20 10/10/17 07:20 Intake and Output: 10/10/17 10/10/17 06:59 18:59 Intake Total 150 Balance 150 - Medications Medications: Current Medications Albuterol (Ventolin Hfa 90 Mcg/Actuation (8 G)) 1 puff IH Q4 PRN PRN Reason: Wheezing Albuterol/Ipratropium (Duoneb 3 Mg/0.5 Mg (3 Ml) Ud) 3 ml INH RQ6 PRN PRN Reason: Shortness Of Breath/wheezing Last Admin: 10/10/17 07:49 Dose: 3 ml Amlodipine Besylate (Norvasc) 10 mg PO DAILY [facility] Last Admin: 10/09/17 09:06 Dose: 10 mg Aspirin (Aspirin) 325 mg PO DAILY [facility] Last Admin: 10/09/17 09:06 Dose: 325 mg Clonidine HCl (Catapres) 0.1 mg PO TID [facility] Last Admin: 10/09/17 17:40 Dose: 0.1 mg Clopidogrel Bisulfate (Plavix) 75 mg PO DAILY [facility] Last Admin: 10/09/17 09:06 Dose: 75 mg Diphenhydramine HCl (Benadryl) 50 mg PO Q6H PRN PRN Reason: itching Last Admin: 10/09/17 21:02 Dose: 50 mg Enoxaparin Sodium (Lovenox) 40 mg SC DAILY [facility] Last Admin: 10/09/17 09:05 Dose: 40 mg Famotidine (Pepcid) 20 mg PO BID [facility] Last Admin: 10/09/17 17:40 Dose: 20 mg Fluticasone Propionate (Flonase) 1 spr NS DAILY [facility] Last Admin: 10/09/17 09:07 Dose: 1 spr Furosemide (Lasix) 20 mg PO DAILY [facility] Last Admin: 10/09/17 09:07 Dose: 20 mg Home Med (Loratadine/Pseudoephedrine [Claritin-D 24 Hour Tablet]) 1 each PO DAILY [facility] Ceftriaxone Sodium 1 gm/ (Sodium Chloride) 100 mls @ 200 mls/hr IVPB DAILY [facility] PRN Reason: Protocol Last Admin: 10/09/17 14:00 Dose: 200 mls/hr Azithromycin 500 mg/ Sodium (Chloride) 250 mls @ 250 mls/hr IVPB DAILY@1430 [facility] PRN Reason: Protocol Last Admin: 10/09/17 14:44 Dose: 250 mls/hr Losartan Potassium (Cozaar) 100 mg PO DAILY [facility] Last Admin: 10/09/17 09:08 Dose: 100 mg Montelukast Sodium (Singulair) 10 mg PO DAILY [facility] Last Admin: 10/09/17 09:06 Dose: 10 mg Naproxen (Anaprox Ds) 550 mg PO BID PRN PRN Reason: pain Last Admin: 10/08/17 09:29 Dose: 550 mg Prednisone (Prednisone Tab) 40 mg PO DAILY [facility] Last Admin: 10/09/17 09:06 Dose: 40 mg Trimethoprim/Sulfamethoxazole (Bactrim Ds Tab) 1 tab PO BID [facility] PRN Reason: Protocol Last Admin: 10/09/17 17:40 Dose: 1 tab - Labs Labs: 10/07/17 15:36 10/07/17 15:36 PT 11.5 SECONDS (9.7-12.2) 10/07/17 15:36 INR 1.1 10/07/17 15:36 APTT 35 SECONDS (21-34) H 10/07/17 15:36 - Constitutional Appears: Non-toxic, No Acute Distress, Other (large body habitus) - Head Exam Head Exam: ATRAUMATIC, NORMAL INSPECTION - Eye Exam Eye Exam: EOMI, Normal appearance - Neck Exam Neck Exam: Full ROM - Respiratory Exam Respiratory Exam: NORMAL BREATHING PATTERN. absent: Decreased Breath Sounds, Wheezes - Cardiovascular Exam Cardiovascular Exam: +S1, +S2 - GI/Abdominal Exam GI & Abdominal Exam: Soft, Normal Bowel Sounds - Extremities Exam Extremities Exam: Full ROM - Back Exam Back Exam: Full ROM - Neurological Exam Neurological Exam: Alert, Awake, Oriented x3 - Psychiatric Exam Psychiatric exam: Normal Affect, Normal Mood - Skin Skin Exam: Dry, Intact, Normal Color, Warm Assessment and Plan (1) Asthma Assessment & Plan: History of Asthma On Albuterol and Duonebs PRN. On Singulair Will begin Budesonide. Stop Prednisone F/U PFTs Avoid second hand smoke Status: Chronic (2) Shortness of breath Assessment & Plan: CXR- no infiltrates or effusions appreciated Echo EF 65.9% from Jun 2017 On Treatment as stated. Symptoms improved. Continue to monitor Discussed with attending physician. Status: Resolved
[2017-10-10] MEDS: Tmp-Smz 800 mg-160 mg DS Tab PO SCH (10:19)
[2017-10-10] MEDS: Fluticasone Nasal 50 mcg/Spray NS SCH (10:24)
[2017-10-10] MEDS: Enoxaparin 40 mg Syringe SC SCH (10:25)
--- NOTE | 2017-10-10 11:14 | CP.PCM.PN ---
Subjective - Date & Time of Evaluation Date of Evaluation: 10/10/17 Time of Evaluation: 10:58 - Subjective Subjective: PGY2 progress note for Dr. Ortiz Pt seen and examined at bedside. No acute events overnight. Pt is resting comfortably eating her breakfast. Currently denies having any SOB, CP, abd pain , N/V/D/C, F/C. Patient denies having any productive cough. Denies having any dyspnea on exertion. Objective - Vital Signs/Intake and Output Vital Signs (last 24 hours): Temp Pulse Resp BP Pulse Ox 98.2 F 68 18 103/57 L 100 10/10/17 07:20 10/10/17 07:20 10/10/17 07:20 10/10/17 07:20 10/10/17 07:20 Intake and Output: 10/10/17 10/10/17 06:59 18:59 Intake Total 150 Balance 150 - Medications Medications: Current Medications Albuterol (Ventolin Hfa 90 Mcg/Actuation (8 G)) 1 puff IH Q4 PRN PRN Reason: Wheezing Albuterol/Ipratropium (Duoneb 3 Mg/0.5 Mg (3 Ml) Ud) 3 ml INH RQ6 PRN PRN Reason: Shortness Of Breath/wheezing Last Admin: 10/10/17 07:49 Dose: 3 ml Amlodipine Besylate (Norvasc) 10 mg PO DAILY [facility] Last Admin: 10/10/17 10:19 Dose: 10 mg Aspirin (Aspirin) 325 mg PO DAILY [facility] Last Admin: 10/10/17 10:18 Dose: 325 mg Clonidine HCl (Catapres) 0.1 mg PO TID [facility] Last Admin: 10/10/17 10:18 Dose: 0.1 mg Clopidogrel Bisulfate (Plavix) 75 mg PO DAILY [facility] Last Admin: 10/10/17 10:19 Dose: 75 mg Diphenhydramine HCl (Benadryl) 50 mg PO Q6H PRN PRN Reason: itching Last Admin: 10/09/17 21:02 Dose: 50 mg Enoxaparin Sodium (Lovenox) 40 mg SC DAILY [facility] Last Admin: 10/09/17 09:05 Dose: 40 mg Famotidine (Pepcid) 20 mg PO BID [facility] Last Admin: 10/10/17 10:18 Dose: 20 mg Fluticasone Propionate (Flonase) 1 spr NS DAILY [facility] Last Admin: 10/10/17 10:24 Dose: 1 spr Furosemide (Lasix) 20 mg PO DAILY [facility] Last Admin: 10/09/17 09:07 Dose: 20 mg Home Med (Loratadine/Pseudoephedrine [Claritin-D 24 Hour Tablet]) 1 each PO DAILY [facility] Ceftriaxone Sodium 1 gm/ (Sodium Chloride) 100 mls @ 200 mls/hr IVPB DAILY [facility] PRN Reason: Protocol Last Admin: 10/10/17 10:20 Dose: 200 mls/hr Azithromycin 500 mg/ Sodium (Chloride) 250 mls @ 250 mls/hr IVPB DAILY@1430 [facility] PRN Reason: Protocol Last Admin: 10/09/17 14:44 Dose: 250 mls/hr Losartan Potassium (Cozaar) 100 mg PO DAILY [facility] Last Admin: 10/10/17 10:21 Dose: 100 mg Montelukast Sodium (Singulair) 10 mg PO DAILY [facility] Last Admin: 10/10/17 10:19 Dose: 10 mg Naproxen (Anaprox Ds) 550 mg PO BID PRN PRN Reason: pain Last Admin: 10/08/17 09:29 Dose: 550 mg Prednisone (Prednisone Tab) 40 mg PO DAILY [facility] Last Admin: 10/10/17 10:18 Dose: 40 mg Trimethoprim/Sulfamethoxazole (Bactrim Ds Tab) 1 tab PO BID [facility] PRN Reason: Protocol Last Admin: 10/10/17 10:19 Dose: 1 tab - Labs Labs: 10/07/17 15:36 10/07/17 15:36 PT 11.5 SECONDS (9.7-12.2) 10/07/17 15:36 INR 1.1 10/07/17 15:36 APTT 35 SECONDS (21-34) H 10/07/17 15:36 - Constitutional Appears: Non-toxic, No Acute Distress - Head Exam Head Exam: ATRAUMATIC, NORMOCEPHALIC - ENT Exam ENT Exam: Mucous Membranes Moist - Respiratory Exam Respiratory Exam: Clear to Ausculation Bilateral, NORMAL BREATHING PATTERN. absent: Rales, Rhonchi, Wheezes - Cardiovascular Exam Cardiovascular Exam: REGULAR RHYTHM, +S1, +S2. absent: Gallop, Rubs, Murmur - GI/Abdominal Exam GI & Abdominal Exam: Soft, Normal Bowel Sounds. absent: Distended, Firm, Guarding, Rigid, Tenderness, Organomegaly - Extremities Exam Extremities Exam: absent: Pedal Edema, Tenderness - Neurological Exam Neurological Exam: Alert, Awake, Oriented x3 - Psychiatric Exam Psychiatric exam: Normal Affect, Normal Mood - Skin Skin Exam: Dry, Intact, Normal Color, Warm Assessment and Plan - Assessment and Plan (Free Text) Assessment: 51 year old female with past medical history of HTN, HLD, COPD is admitted for SOB. SOB - 2/2 asthma exacerbation vs. pna vs. CJF exacerbation - CXR on admission was negative for active disease - Pt afebrile since admission and normal WBC count. No cultures were ordered on admission - Pt was started on rocehpin and zithromax - continue duoneb prn. ventolin 1 puff q4 prn - flonase 1 spray qd, singulair 10 mg po qd - continue prednisone 40 mg po qd. Will taper daily - NC to maintain o2 >92% - Will check procal - Pulm, Dr. Alva is consulted - Will check probnp - Trops and EKG x 3 negative - Echo from 06/2017 showed normal EF with grade 1 diastolic dysfunction - Cardio, Dr. Tyler consulted. Recommend no further cardiac workup. Pt cleared by cardio for d/c - continue lasixs 20 mg po qd CHF with preserved EF - continue lasixs 20 mg po qd - continue aspirin and plavix qd HTN - continue cozaar qd, lasixs, norvasc 10 mg po qd, clonidine 0.1 mg po tid HLD - TG/Chol/LDL/HDL 173/192/67/45 - HgbA1c of 5.7 - ASCVD score of <2.3%. Recommend lifestyle modification Foliculitis on mons pubis - Pt was being treated outpt with bactrim. Will continue bactrim to complete 10 days 1 tab po bid. - naproxen prn for pain Prophylaxis - Lovenox - pepcid All orders and management per Dr. Ortiz Patient stable for discharge home per Dr. Ortiz Patient is to follow up with PMD upon discharge. Patient is to follow up with cardiology upon discharge. Referral provided for Dr. Tyler Patient is to continue home medications as prescribed. Patient is discharged with the following new medications: Bactrim 800 mg/160mg 1 tab po BID #16 tabs; Budesonide 0.25 mg INH Rq12 nicolasa #1 inhaler; Z-goyo #1. If symptoms worsen, please return to ED.
[2017-10-10 11:38] VITALS: BP 122/69
[2017-10-10] MEDS: Azithromycin 500 MG in Sodium Chloride 0.9% 250 ML IVPB SCH (13:49)
[2017-10-10] MEDS ORDERED: Budesonide 0.25 mg/2 ml Inhal Susp UD INH SCH (14:00)
--- NOTE | 2017-10-10 14:48 | CARD ---
APPROVED REPORT EKG Measurement Heart [id number] CO [id number] <Conclusion> Sinus rhythm with 1st degree AV block Possible Left atrial enlargement Borderline ECG
== END 2017-10-10 14:30 | disposition home or self-care (01) ==
LOC: C.ER 13:43 → C.9E 18:30 → C.6T 20:06
PROVIDERS: ADMIT Internal Medicine Nephrology; ATTEND Internal Medicine Nephrology
DX: R07.9 Chest pain, unspecified (principal); M54.5 Low back pain; F31.9 Bipolar disorder, unspecified; J44.9 Chronic obstructive pulmonary disease, unspecified; G47.36 Sleep related hypoventilation in conditions classified elsewhere; Z87.01 Personal history of pneumonia (recurrent)
CPT/HCPCS: 36415; 71045; 73502; 80053; 81001; 82150; 82550; 82553; 82607; 83036; 83690; 83735; 83880; 84145; 84443; 84484; 85025; 85610; 85730; 93005; 94060; 94640; 94727; 94728; 94729; 94760; 96365; 96366; 96367; 96372; 99285; G0378; J0456; J0696; J1650; J7050

== ENCOUNTER 2017-11-11 14:23 | Emergency (ER) | payer MEDICAID ==
[2017-11-11 14:32] VITALS: BMI 52.8
[2017-11-11 14:38] VITALS: BP 132/81; PULSE 76; RESP 20; TEMP 99; O2SAT 96
--- NOTE | 2017-11-11 14:55 | C.PDOC ---
History Of Present Illness Pt c/o pain behind her right knee at the site of her Rosa's cyst. Pt states that she is scheduled for surgery for it in [place] on November 17. Time Seen by Provider: 11/11/17 14:39 Chief Complaint (Nursing): Lower Extremity Problem/Injury History Per: Patient Onset/Duration Of Symptoms: Days Current Symptoms Are (Timing): Still Present Severity: Moderate Additional History Per: Prior Records - Knee Alleviating Factor(s): OTC Pain Medication Past Medical History Reviewed: Historical Data, Nursing Documentation, Vital Signs Vital Signs: Last Vital Signs Temp 99.0 F 11/11/17 14:32 Pulse 76 11/11/17 14:32 Resp 20 11/11/17 14:32 BP 132/81 11/11/17 14:32 Pulse Ox 96 11/11/17 14:32 - Medical History PMH: Anxiety, Arthritis, Asthma, Bipolar Disorder, COPD, Depression, HTN, Peripheral Edema, Pneumonia (2016), Sleep Apnea Surgical History: Family History: States: Unknown Family Hx - Social History Hx Tobacco Use: No Hx Alcohol Use: No Hx Substance Use: No - Immunization History Hx Tetanus Toxoid Vaccination: No Hx Influenza Vaccination: No Hx Pneumococcal Vaccination: No Review Of Systems Except As Marked, All Systems Reviewed And Found Negative. Constitutional: Negative for: Fever, Weakness Cardiovascular: Negative for: Chest Pain Respiratory: Negative for: Shortness of Breath Gastrointestinal: Negative for: Vomiting, Abdominal Pain Musculoskeletal: Positive for: Leg Pain (right). Negative for: Neck Pain, Back Pain Skin: Negative for: Rash Neurological: Negative for: Weakness, Numbness Physical Exam - Physical Exam Appears: Non-toxic, No Acute Distress Skin: Normal Color, Warm, Dry, No Rash Head: Atraumatic, Normacephalic Eye(s): bilateral: Normal Inspection, PERRL, EOMI Neck: Normal ROM, Supple Extremity: Normal ROM, Tenderness (right popliteal area), No Calf Tenderness Extremity: Bilateral: Normal Color And Temperature Pulses: Right Dorsalis Pedis: Normal Neurological/Psych: Oriented x3, Normal Motor, Normal Sensation ED Course And Treatment O2 Sat by Pulse Oximetry: 96 Pulse Ox Interpretation: Normal Disposition Counseled Patient/Family Regarding: Diagnosis, Need For Followup, Rx Given - Disposition Disposition: HOME/ ROUTINE Disposition Time: 14:55 Condition: STABLE Additional Instructions: Follow up with your Orthopedic Surgeon as scheduled. Return to the ER if you develop redness, swelling, worsening of symptoms or if you have any other concerns. Prescriptions: traMADol [Ultram] 50 mg PO TID PRN #15 tab PRN Reason: Pain, Severe (8-10) Instructions: Rosa's Cyst (DC) - Clinical Impression Clinical Impression: Synovial cyst of popliteal space [Rosa], right knee
== END 2017-11-11 15:03 | disposition home or self-care (01) ==
LOC: C.ER 14:23
DX: M71.21 Synovial cyst of popliteal space [Baker], right knee (principal)

== ENCOUNTER 2017-11-17 20:10 | Emergency (ER) | payer MEDICAID ==
[2017-11-17 20:10] VITALS: BMI 52.8
[2017-11-17 20:26] VITALS: BP 145/91; PULSE 76; RESP 18; TEMP 98.6; O2SAT 97
[2017-11-17] MEDS ORDERED: Dexamethasone 4 mg/1 ml IM STA (20:34)
--- NOTE | 2017-11-17 20:41 | C.PDOC ---
History Of Present Illness 51yo female, comes to ER for evaluation of right knee pain, radiating to her foot. She reports she has a Rosa's cyst in her right lower extremity and she has been to 3 different facilities where "they have not done anything for it." She was seen at [facility] this morning and was informed by the orthopedist that she needs an MRI before the cyst can be drained. Patient currently reports she has pain, burning and numbness sensation to her leg. She has taken Motrin, Naproxen, and Tramadol without relief of pain. Otherwise, she denies any injuries, weakness, and offers no other medical complaints. Time Seen by Provider: 11/17/17 20:25 Chief Complaint (Nursing): Lower Extremity Problem/Injury History Per: Patient History/Exam Limitations: no limitations Onset/Duration Of Symptoms: Persistent Current Symptoms Are (Timing): Still Present Additional History Per: Patient Past Medical History Reviewed: Historical Data, Nursing Documentation, Vital Signs Vital Signs: Last Vital Signs Temp 98.6 F 11/17/17 20:24 Pulse 76 11/17/17 20:24 Resp 18 11/17/17 20:24 BP 145/91 H 11/17/17 20:24 Pulse Ox 97 11/17/17 21:01 - Medical History PMH: Anxiety, Arthritis, Asthma, Bipolar Disorder, COPD, Depression, HTN, Peripheral Edema, Pneumonia (2016), Sleep Apnea Denies: Chronic Kidney Disease Surgical History: Family History: States: Unknown Family Hx - Social History Hx Tobacco Use: No Hx Alcohol Use: No Hx Substance Use: No - Immunization History Hx Tetanus Toxoid Vaccination: No Hx Influenza Vaccination: No Hx Pneumococcal Vaccination: No Review Of Systems Except As Marked, All Systems Reviewed And Found Negative. Musculoskeletal: Positive for: Leg Pain Neurological: Positive for: Numbness. Negative for: Weakness Physical Exam - Physical Exam Appears: Non-toxic, No Acute Distress, Other (obese) Skin: Warm, Dry Head: Normacephalic Eye(s): bilateral: Normal Inspection Neck: Supple Chest: Symmetrical Cardiovascular: Rhythm Regular Extremity: No Normal ROM, Tenderness (mild tenderness and swelling to right popliteal area), No Pedal Edema, Calf Tenderness (+ Decreased ROM of right lower extremity due to pain), Capillary Refill (< 2 seconds), No Deformity Pulses: Left Dorsalis Pedis: Normal, Right Dorsalis Pedis: Normal Neurological/Psych: Oriented x3, Normal Motor, Normal Sensation Gait: Steady ED Course And Treatment O2 Sat by Pulse Oximetry: 97 (RA) Pulse Ox Interpretation: Normal Medical Decision Making Medical Decision Making: Impression: Right knee pain Plan: -- Decadron 8mg IM Patient instructed on need for outpatient follow up to get the MRI study. Patient wants knee brace. There is not immobilizer large enough to fit patient leg. Rx given for knee support. Disposition Counseled Patient/Family Regarding: Diagnosis, Need For Followup - Disposition Referrals: [facility] [Outside] Ian Langston III, MD [Staff Provider] - Disposition: HOME/ ROUTINE Disposition Time: 21:01 Condition: STABLE Additional Instructions: Follow up with orthopedic for further evaluation Prescriptions: Leg Brace [Knee Support] 1 each MC DAILY #1 each traMADol [Ultram] 50 mg PO Q8 #20 tab Instructions: Rosa's Cyst (DC) Forms: [facility] (Mal[place]ian) - POA Present On Arrival: None - Clinical Impression Clinical Impression: Knee pain, right, Rosa cyst - PA / CARDIOLOGY ASSOCIATE / Resident Statement MD/DO has reviewed & agrees with the documentation as recorded. - Scribe Statement The provider has reviewed the documentation as recorded by the Lang Bal Provider Attestation: All medical record entries made by the Lang were at my direction and personally dictated by me. I have reviewed the chart and agree that the record accurately reflects my personal performance of the history, physical exam, medical decision making, and the department course for this patient. I have also personally directed, reviewed, and agree with the discharge instructions and disposition.
[2017-11-17] MEDS ORDERED: Dexamethasone 4 mg/1 ml ONE (20:46)
== END 2017-11-17 21:48 | disposition home or self-care (01) ==
LOC: C.ER 20:10
DX: M71.21 Synovial cyst of popliteal space [Baker], right knee (principal); M25.561 Pain in right knee
CPT/HCPCS: 96372; 99283; J1100

== ENCOUNTER 2017-12-28 09:46 | Emergency (ER) | payer OTHER ==
[2017-12-28 09:46] VITALS: BMI 52.8
--- NOTE | 2017-12-28 10:48 | C.PDOC ---
History Of Present Illness <Gareth Knapp E - Last Filed: 12/28/17 12:09> <Ananda Bashir - Last Filed: 12/28/17 13:20> CC: Right ankle/ lateral plantar pain Patient is a 52 year old female with past medical history of sleep apnea, HTN, COPD, Asthma and Angina, who presents to the ED with compliant of right ankle pain that has been going on for a few months. Patient states that she was seen by her PMD, Dr. Mancia, who prescribed Tramadol, which does not provide any significant symptomatic relief. Patient states she experiences the discomfort at night when she is sleeping; describing it as a burning and cramping pain, Patient denies any trauma and pain with ambulation. As per patient, she was given a script or referred to obtain an X-ray, however, she was unable to due to some issues with her insurance. (Ananda Bashir) <Gareth Knapp E - Last Filed: 12/28/17 12:09> History Per: Patient History/Exam Limitations: no limitations Onset/Duration Of Symptoms: Persistent, Worse Since Current Symptoms Are (Timing): Still Present Severity: Moderate Pain Scale Rating Of: 3 Location: Right ankle/lateral on the plantar surface Quality: Achy, burning <Ananda Bashir - Last Filed: 12/28/17 13:20> Time Seen by Provider: 12/28/17 10:18 Chief Complaint (Nursing): Lower Extremity Problem/Injury Past Medical History - Medical History PMH: Anxiety, Arthritis, Asthma, Bipolar Disorder, COPD, Depression, HTN, Peripheral Edema, Pneumonia (2016), Sleep Apnea (on CPAP) Denies: Chronic Kidney Disease Surgical History: Hernia Repair, Family History: States: Unknown Family Hx - Social History Hx Tobacco Use: No Hx Alcohol Use: No Hx Substance Use: No - Immunization History Hx Tetanus Toxoid Vaccination: No Hx Influenza Vaccination: No Hx Pneumococcal Vaccination: No <Ananda Bashir - Last Filed: 12/28/17 13:20> Vital Signs: Last Vital Signs Temp 98.7 F 12/28/17 12:00 Pulse 64 12/28/17 12:00 Resp 20 12/28/17 12:00 BP 141/80 12/28/17 12:00 Pulse Ox 97 12/28/17 12:00 Review Of Systems Constitutional: Negative for: Fever, Chills, Sweats, Weakness, Malaise Eyes: Negative for: Pain, Vision Change ENT: Negative for: Ear Pain, Ear Discharge, Nose Pain, Nose Discharge Cardiovascular: Negative for: Chest Pain, Palpitations Respiratory: Negative for: Cough, Shortness of Breath Gastrointestinal: Negative for: Nausea, Vomiting, Abdominal Pain, Diarrhea Skin: Negative for: Rash, Lesions Neurological: Negative for: Weakness, Confusion, Seizures, Dizziness <Ananda Bashir - Last Filed: 12/28/17 13:20> Physical Exam - Physical Exam Appears: No Acute Distress Skin: Normal Color, Warm Head: Atraumatic, Normacephalic Eye(s): bilateral: Normal Inspection, PERRL, EOMI Nose: Normal Tongue: Normal Appearing Lips: Normal Appearing Neck: Normal ROM Chest: Symmetrical Cardiovascular: Rhythm Regular Respiratory: Normal Breath Sounds Gastrointestinal/Abdominal: Normal Exam, Bowel Sounds, Soft, No Tenderness Extremity: Other (Tenderness with palpation on the right lateral plantar surface (foot)) Extremity: Bilateral: Atraumatic Neurological/Psych: Oriented x3, Normal Speech <Ananda Bashir E - Last Filed: 12/28/17 13:20> ED Course And Treatment Pulse Ox Interpretation: Normal (h/o COPD) - Other Rad R foot X-Ray: Interpreted by Me (neg) <Gareth Knapp E - Last Filed: 12/28/17 12:09> O2 Sat by Pulse Oximetry: 94 <Ananda Bashir - Last Filed: 12/28/17 13:20> Medical Decision Making <Gareth Knapp E - Last Filed: 12/28/17 12:09> <Ananda Bashir - Last Filed: 12/28/17 13:20> Medical Decision Making: acute on chronic R foot pain x-rays normal related to morbid obesity opt f/u with PMD/Pod's PRN (Gareth Knapp) Right Foot X-ray: Normal right foot radiographs. No fracture and normal joint Right Ankel X-ray: Normal (Ananda Bashir) Disposition Doctor Will See Patient In The: Office Counseled Patient/Family Regarding: Studies Performed, Diagnosis - Disposition Disposition Time: 12:10 <Ra,Blayne - Last Filed: 12/28/17 12:09> <Ananda Bashir E - Last Filed: 12/28/17 13:20> - Disposition Referrals: Nayan Mancia APN [Non-Staff] - Disposition: HOME/ ROUTINE Condition: GOOD Additional Instructions: R foot films appear normal Have your PMD refer you to Podiatry as needed continue motrin/advil 400-600 mg every 6 hours as needed Weight loss as able Forms: General Discharge Instructions, [facility] (Sudanese) - Clinical Impression Clinical Impression: Foot pain, right
--- NOTE | 2017-12-28 11:07 | RAD ---
Date of service: 12/28/2017 PROCEDURE: Right Foot Radiographs. HISTORY: Right foot pain COMPARISON: None. FINDINGS: BONES: Normal. No fracture. JOINTS: Normal. SOFT TISSUES: Normal. OTHER FINDINGS: None. IMPRESSION: Normal right foot radiographs.
[2017-12-28 12:01] VITALS: BP 141/80; PULSE 64; RESP 20; TEMP 98.7
[2017-12-28 13:20] VITALS: O2SAT 94
--- NOTE | 2017-12-28 13:47 | RAD ---
Right ankle three views History: Pain Comparison: None available. Findings: Medial and lateral malleolar soft tissue swelling. Evaluation somewhat limited given suboptimal patient positioning and technique. No evidence for acute displaced fracture or dislocation. A few linear sclerotic foci are noted within the mid calcaneus, nonspecific. Dorsal calcaneal spurring. Degenerative changes noted at the dorsal aspect of the talonavicular joint space. Impression: Medial and lateral malleolar soft tissue swelling. Evaluation somewhat limited given suboptimal patient positioning and technique. No evidence for acute displaced fracture or dislocation. A few linear sclerotic foci are noted within the mid calcaneus, nonspecific. Dorsal calcaneal spurring. Degenerative changes noted at the dorsal aspect of the talonavicular joint space. If pain persists, consider correlation MRI.
--- NOTE | 2017-12-30 02:25 | CARD ---
APPROVED REPORT Date of service: 12/28/2017 EKG Measurement Heart [id number] <Conclusion> Sinus rhythm with 1st degree AV block Nonspecific ST abnormality Abnormal ECG
== END 2017-12-28 12:18 | disposition home or self-care (01) ==
LOC: C.ER 09:46
DX: M79.671 Pain in right foot (principal)

== ENCOUNTER 2017-12-31 22:59 | Inpatient (IN) | payer OTHER ==
[2017-12-31 22:59] VITALS: BMI 52.8
--- NOTE | 2018-01-01 00:15 | C.PDOC ---
History Of Present Illness <RaGareth cruz - Last Filed: 01/01/18 00:42> <Dianelys Jackson - Last Filed: 01/01/18 03:41> The patient is a 52-year-old female who states she was walking in her apartment , when she fell and experienced loss of consciousness earlier today. Patient woke up an unknown amount of time later. She had a mild headache, which she states has now resolved. Of note, patient has extensive psychiatric history and was seen in this ED earlier this week for foot discomfort. She denies injuries, pain, urinary/bowel incontinence. (Gareth Knapp) History Per: Patient History/Exam Limitations: no limitations Onset/Duration Of Symptoms: Hrs Current Symptoms Are (Timing): Better Quality: denies: "Pain" Additional History Per: Patient <Gareth Knapp - Last Filed: 01/01/18 00:42> <Dianelys Jackson - Last Filed: 01/01/18 03:41> Time Seen by Provider: 12/31/17 23:35 Chief Complaint (Nursing): Chest Pain Past Medical History Reviewed: Historical Data, Nursing Documentation, Vital Signs - Medical History PMH: Anxiety, Arthritis, Asthma, Bipolar Disorder, COPD, Depression, HTN, Peripheral Edema, Pneumonia (2016), Sleep Apnea (on CPAP) Denies: Chronic Kidney Disease Surgical History: Hernia Repair, Family History: States: Unknown Family Hx - Social History Hx Tobacco Use: No Hx Alcohol Use: No Hx Substance Use: No - Immunization History Hx Tetanus Toxoid Vaccination: No Hx Influenza Vaccination: No Hx Pneumococcal Vaccination: No <RaJohnBlayne - Last Filed: 01/01/18 00:42> Vital Signs: Last Vital Signs Temp Pulse 76 01/01/18 00:33 Resp 20 12/31/17 23:23 BP 147/84 12/31/17 23:46 Pulse Ox 96 01/01/18 00:45 Review Of Systems Genitourinary: Negative for: Incontinence Neurological: Positive for: Headache, Other (loss of consciousness ) <RaJohnBlayne - Last Filed: 01/01/18 00:42> Physical Exam - Physical Exam Appears: Non-toxic, No Acute Distress, Other (morbidly obese Black female ) Skin: Normal Color, Warm, Dry Head: Atraumatic, Normacephalic Eye(s): bilateral: Normal Inspection Oral Mucosa: Moist Neck: Normal ROM, No Midline Cervical Tenderness, No Paracervical Tenderness, Supple Chest: Symmetrical, No Deformity, No Tenderness Cardiovascular: Rhythm Regular, No Murmur Respiratory: Normal Breath Sounds, No Rales, No Rhonchi, No Wheezing Back: No Vertebral Tenderness, No Paraspinal Tenderness Extremity: Normal ROM, Capillary Refill (less than 2 seconds ) Neurological/Psych: Oriented x3, Normal Speech, Normal Cognition Gait: Steady <Gareth Knapp - Last Filed: 01/01/18 00:42> ED Course And Treatment - Laboratory Results Result Diagrams: 01/01/18 00:30 Lab Interpretation: Normal ECG: Interpreted By Me ECG Rhythm: Sinus Rhythm ECG Interpretation: Normal Rate From EC O2 Sat by Pulse Oximetry: 96 (on RA) Pulse Ox Interpretation: Normal - Radiology CXR: Interpreted by Me CXR Interpretation: Yes: No Acute Disease Progress Note: Bloodwork, urinalysis, CXR, EKG ordered and reviewed. Reevaluation Time: 00:44 Reassessment Condition: Unchanged (remains asymptomatic) <Gareth Knapp - Last Filed: 01/01/18 00:42> - Laboratory Results Result Diagrams: 01/01/18 00:30 01/01/18 00:30 Pulse Ox Interpretation: Normal <Dianelys Jackson - Last Filed: 01/01/18 03:41> Medical Decision Making <Gareth Knapp - Last Filed: 01/01/18 00:42> <Dianelys Jackson - Last Filed: 01/01/18 03:41> Medical Decision Making: strange presentation, suggesting syncope while walking all symptoms resolved [employer] extensive psych hx 0100: signed over to overnight MD to f/u labs and dispo appropriately. (Gareth Knapp) Disposition - Disposition Disposition Time: 01:00 <Gareth Knapp Last Filed: 01/01/18 00:42> Discussed With : Junior Valladares Comment: accepted the pt on his service and took over the care at 3:40 AM Doctor Will See Patient In The: Hospital Counseled Patient/Family Regarding: Studies Performed, Diagnosis <Dianelys Jackson - Last Filed: 08/26/18 03:41> - Disposition Disposition: HOSPITALIZED Condition: FAIR Forms: [facility] (Citizen Of [place]) - Clinical Impression Clinical Impression: Syncope, Chest pain - Scribe Statement The provider has reviewed the documentation as recorded by the Scribe (Alejandra Ortiz) <Gareth Knapp - Last Filed: 01/01/18 00:42> <Dianelys Jackson - Last Filed: 01/01/18 03:41> - Scribe Statement Provider Attestation: All medical record entries made by the Scribe were at my direction and personally dictated by me. I have reviewed the chart and agree that the record accurately reflects my personal performance of the history, physical exam, medical decision making, and the department course for this patient. I have also personally directed, reviewed, and agree with the discharge instructions and disposition. (Gareth Knapp) Physician Patient Turnover Patient Signed Over To: Dianelys Jackson Handoff Comments: f/u labs and dispo appropriately. <Gareth Knapp - Last Filed: 01/01/18 00:42> Decision To Admit <Gareth Knapp - Last Filed: 01/01/18 00:42> - Pt Status Changed To: Hospital Disposition Of: Inpatient - Admit Certification Admit to Inpatient:: After my assessment, the patient will require hospitalization for at least two midnights. This is because of the severity of symptoms shown, intensity of services needed, and/or the medical risk in this patient being treated as an outpatient. - InPatient: Physician Admission Certification: I certify that this patient requires 2 or more midnights of care for the following reason:: After my assessment, the patient will require hospitalization for at least two midnights. This is because of the severity of symptoms shown, intensity of services needed, and/or the medical risk in this patient being treated as an outpatient. - . Bed Request Type: Telemetry Admitting Physician: Junior Valladares <Dianelys Jackson - Last Filed: 01/01/18 03:41> - . Patient Diagnosis: Syncope, Chest pain
[2018-01-01 00:32] LABS: BASO # 0.1 K/uL (0.0-0.2); BASO % 1.3 % (0.0-2.0); EOS # 0.2 K/uL (0.0-0.7); EOS % 4.1 % (0.0-4.0); HEMOGLOBIN 12.6 g/dL (11.0-16.0); LYMPH # 2.1 K/uL (1.0-4.3); LYMPH % 37.4 % (20.0-40.0); MEAN CELL VOLUME 85.1 fL (81.0-99.0); MEAN CORPUSCULAR HEMOGLOBIN 28.3 pg (27.0-31.0); MEAN CORPUSCULAR HGB CONC 33.3 g/dL (33.0-37.0); MEAN PLATELET VOLUME 8.9 fL (7.2-11.7); MONO # 0.5 K/uL (0.0-0.8); MONO % 8.3 % (0.0-10.0); NEUT # 2.7 K/uL (1.8-7.0); NEUT % 48.9 % (50.0-75.0); NRBC % 0.1 % (0.0-2.0); RBC 4.46 Mil/uL (3.80-5.20); RED CELL DISTRIBUTION WIDTH 14.2 % (11.5-14.5); WHITE BLOOD COUNT 5.6 K/uL (4.8-10.8)
[2018-01-01 00:48] LABS: INR 1.1; PARTIAL THROMBOPLASTIN TIME 33 SECONDS (21-34); PROTHROMBIN TIME 11.6 SECONDS (9.7-12.2)
[2018-01-01 00:57] LABS: CALCIUM 9.2 mg/dl (8.6-10.4); GFR NON-AFRICAN AMERICAN > 60
[2018-01-01 01:04] LABS: ALB/GLOB RATIO 1.4 (1.0-2.1); ALBUMIN 4.5 g/dL (3.5-5.0); ALT/SGPT 20 U/L (9-52); AST/SGOT 28 U/L (14-36); BLOOD UREA NITROGEN 16 mg/dL (7-17)
[2018-01-01 01:09] LABS: B-TYPE NATRIURETIC PEPTIDE 49.2 pg/mL (0-900)
[2018-01-01 01:22] LABS: D DIMER < 200 ng/mlDDU (0-243)
[2018-01-01] MEDS ORDERED: Albuterol-Ipratrop 3 mg / 0.5 (3 ml) UD INH STA (03:02)
[2018-01-01] MEDS ORDERED: Albuterol-Ipratrop 3 mg / 0.5 (3 ml) UD ONE (03:14)
[2018-01-01 06:05] VITALS: RESP 20
[2018-01-01] MEDS ORDERED: Albuterol HFA 90 mcg/actuation (8 g) IH PRN ×2 (06:44→12:00)
[2018-01-01 08:11] LABS: HDL CHOLESTEROL 43 mg/dL (30-70)
[2018-01-01 08:22] LABS: CK-MB 0.52 ng/mL (0.0-3.38); LDL CHOLESTEROL 57 mg/dL (0-129)
--- NOTE | 2018-01-01 09:33 | RAD ---
Date of service: 01/01/2018 PROCEDURE: CHEST RADIOGRAPH, 1 VIEW HISTORY: SOB COMPARISON: Chest radiographs 10/07/2017 FINDINGS: LUNGS: Clear. PLEURA: No pneumothorax or pleural fluid seen. CARDIOVASCULAR: Normal. OSSEOUS STRUCTURES: No significant abnormalities. VISUALIZED UPPER ABDOMEN: Normal. OTHER FINDINGS: None. IMPRESSION: No interval acute cardiopulmonary disease appreciated.
[2018-01-01] MEDS: Enoxaparin 40 mg Syringe SC SCH (09:58)
[2018-01-01] MEDS: Fluticasone Nasal 50 mcg/Spray NS SCH ×2 (10:00→14:01)
[2018-01-01] MEDS: Budesonide 0.25 mg/2 ml Inhal Susp UD INH SCH ×2 (10:03→20:44)
--- NOTE | 2018-01-01 11:47 | CT ---
Date of service: 01/01/2018 PROCEDURE: CT HEAD WITHOUT CONTRAST. HISTORY: syncope COMPARISON: None available. TECHNIQUE: Axial computed tomography images were obtained through the head/brain without intravenous contrast. Radiation dose: Total exam DLP = 946.62 mGy-cm. This CT exam was performed using one or more of the following dose reduction techniques: Automated exposure control, adjustment of the mA and/or kV according to patient size, and/or use of iterative reconstruction technique. FINDINGS: HEMORRHAGE: No intracranial hemorrhage. BRAIN: Normal lala-white matter differentiation and density are appreciated throughout the cerebrum and cerebellum with the brainstem appearing unremarkable as well. There is no mass effect. There is no suspicious extra-axial fluid collection and the midline brain anatomy appears diffusely unremarkable. VENTRICLES: Unremarkable. No hydrocephalus. CALVARIUM: No destructive bony lesion or displaced fracture identified including through the skullbase. PARANASAL SINUSES: Unremarkable as visualized. No significant inflammatory changes. MASTOID AIR CELLS: Unremarkable as visualized. No inflammatory changes. OTHER FINDINGS: None. IMPRESSION: Unremarkable noncontrast head CT.
[2018-01-01 14:18] LABS: CK-MB 0.41 ng/mL (0.0-3.38)
[2018-01-01 17:03] LABS: HCG,QUALITATIVE URINE NEGATIVE (NEGATIVE)
[2018-01-01 17:08] LABS: SQUAMOUS EPITHIAL 3 /hpf (0-5); URINE BILIRUBIN NEGATIVE (NEGATIVE); URINE BLOOD NEGATIVE (NEGATIVE); URINE CLARITY Clear (Clear); URINE COLOR Yellow (YELLOW); URINE GLUCOSE (UA) NORMAL (Normal); URINE LEUKOCYTE ESTERASE TRACE Leu/uL (Negative); URINE PROTEIN NEGATIVE (NEGATIVE); URINE UROBILINOGEN NORMAL mg/dL (0.2-1.0)
--- NOTE | 2018-01-01 23:27 | CP.PCM.HP ---
Past Patient History - Infectious Disease Hx of Infectious Diseases: None - Past Medical History & Family History Past Medical History?: Yes - Past Social History Smoking Status: Never Smoked - CARDIAC Hx Cardiac Disorders: Yes Hx Hypertension: Yes Hx Peripheral Edema: Yes - PULMONARY Hx Respiratory Disorders: Yes Hx Asthma: Yes Hx Chronic Obstructive Pulmonary Disease (COPD): Yes Hx Pneumonia: Yes (2016) Hx Sleep Apnea: Yes (on CPAP) - NEUROLOGICAL Hx Neurological Disorder: No - HEENT Hx HEENT Problems: No - RENAL Hx Chronic Kidney Disease: No - ENDOCRINE/METABOLIC Hx Endocrine Disorders: No - HEMATOLOGICAL/ONCOLOGICAL Hx Blood Disorders: No - INTEGUMENTARY Hx Dermatological Problems: No - MUSCULOSKELETAL/RHEUMATOLOGICAL Hx Falls: Yes - GASTROINTESTINAL Hx Gastrointestinal Disorders: No Other/Comment: HERNIA REPAIR 28 years ago - GENITOURINARY/GYNECOLOGICAL Hx Genitourinary Disorders: No - PSYCHIATRIC Hx Substance Use: No - SURGICAL HISTORY Hx Surgeries: Yes Hx Section: Yes (x5) Hx Herniorrhaphy: Yes (28 years ago) - ANESTHESIA Hx Anesthesia: Yes Hx Anesthesia Reactions: No Hx Malignant Hyperthermia: No Has any member of the family had a problem w/ anesthesia?: No Meds Allergies/Adverse Reactions: Allergies Allergy/AdvReac Type Severity Reaction Status Date / Time No Known Allergies Allergy Verified 11/17/17 20:25 Results - Vital Signs Recent Vital Signs: Last Vital Signs Temp 98.3 F 01/01/18 15:00 Pulse 70 01/01/18 16:00 Resp 20 01/01/18 15:00 BP 96/64 L 01/01/18 15:00 Pulse Ox 96 01/01/18 15:00 - Labs Result Diagrams: 01/01/18 00:30 01/01/18 00:30 Labs: Laboratory Results - last 24 hr 01/01/18 01/01/18 01/01/18 00:30 00:30 00:30 WBC 5.6 RBC 4.46 Hgb 12.6 Hct 38.0 MCV 85.1 MCH 28.3 MCHC 33.3 RDW 14.2 Plt Count 250 MPV 8.9 Neut % (Auto) 48.9 L Lymph % (Auto) 37.4 Young % (Auto) 8.3 Eos % (Auto) 4.1 H Baso % (Auto) 1.3 Neut # (Auto) 2.7 Lymph # (Auto) 2.1 Young # (Auto) 0.5 Eos # (Auto) 0.2 Baso # (Auto) 0.1 PT 11.6 INR 1.1 APTT 33 D-Dimer, Quantitative < 200 Sodium 138 Potassium 4.6 Chloride 100 Carbon Dioxide 29 Anion Gap 14 BUN 16 Creatinine 0.6 L Est GFR ( Amer) > 60 Est GFR (Non-Af Amer) > 60 POC Glucose (mg/dL) Random Glucose 98 Hemoglobin A1c Calcium 9.2 Total Bilirubin 0.8 AST 28 ALT 20 Alkaline Phosphatase 60 Total Creatine Kinase CK-MB (Mass) Troponin I < 0.0120 NT-Pro-B Natriuret Pep 49.2 Total Protein 7.7 Albumin 4.5 Globulin 3.2 Albumin/Globulin Ratio 1.4 Triglycerides Cholesterol LDL Cholesterol Direct HDL Cholesterol Urine Color Urine Clarity Urine pH Ur Specific [place] Urine Protein Urine Glucose (UA) Urine Ketones Urine Blood Urine Nitrate Urine Bilirubin Urine Urobilinogen Ur Leukocyte Esterase Urine WBC (Auto) Ur Squamous Epith Cells Urine HCG, Qual 01/01/18 01/01/18 01/01/18 06:37 07:44 07:44 WBC RBC Hgb Hct MCV MCH MCHC RDW Plt Count MPV Neut % (Auto) Lymph % (Auto) Young % (Auto) Eos % (Auto) Baso % (Auto) Neut # (Auto) Lymph # (Auto) Young # (Auto) Eos # (Auto) Baso # (Auto) PT INR APTT D-Dimer, Quantitative Sodium Potassium Chloride Carbon Dioxide Anion Gap BUN Creatinine Est GFR ( Amer) Est GFR (Non-Af Amer) POC Glucose (mg/dL) 124 H Random Glucose Hemoglobin A1c 5.4 Calcium Total Bilirubin AST ALT Alkaline Phosphatase Total Creatine Kinase 68 CK-MB (Mass) 0.52 Troponin I < 0.0120 NT-Pro-B Natriuret Pep Total Protein Albumin Globulin Albumin/Globulin Ratio Triglycerides 177 H Cholesterol 174 LDL Cholesterol Direct 57 HDL Cholesterol 43 Urine Color Urine Clarity Urine pH Ur Specific [place] Urine Protein Urine Glucose (UA) Urine Ketones Urine Blood Urine Nitrate Urine Bilirubin Urine Urobilinogen Ur Leukocyte Esterase Urine WBC (Auto) Ur Squamous Epith Cells Urine HCG, Qual 01/01/18 01/01/18 01/01/18 12:55 13:45 16:18 WBC RBC Hgb Hct MCV MCH MCHC RDW Plt Count MPV Neut % (Auto) Lymph % (Auto) Young % (Auto) Eos % (Auto) Baso % (Auto) Neut # (Auto) Lymph # (Auto) Young # (Auto) Eos # (Auto) Baso # (Auto) PT INR APTT D-Dimer, Quantitative Sodium Potassium Chloride Carbon Dioxide Anion Gap BUN Creatinine Est GFR ( Amer) Est GFR (Non-Af Amer) POC Glucose (mg/dL) 135 H 106 Random Glucose Hemoglobin A1c Calcium Total Bilirubin AST ALT Alkaline Phosphatase Total Creatine Kinase 69 CK-MB (Mass) 0.41 Troponin I < 0.0120 NT-Pro-B Natriuret Pep Total Protein Albumin Globulin Albumin/Globulin Ratio Triglycerides Cholesterol LDL Cholesterol Direct HDL Cholesterol Urine Color Urine Clarity Urine pH Ur Specific [place] Urine Protein Urine Glucose (UA) Urine Ketones Urine Blood Urine Nitrate Urine Bilirubin Urine Urobilinogen Ur Leukocyte Esterase Urine WBC (Auto) Ur Squamous Epith Cells Urine HCG, Qual 01/01/18 01/01/18 16:59 21:41 WBC RBC Hgb Hct MCV MCH MCHC RDW Plt Count MPV Neut % (Auto) Lymph % (Auto) Young % (Auto) Eos % (Auto) Baso % (Auto) Neut # (Auto) Lymph # (Auto) Young # (Auto) Eos # (Auto) Baso # (Auto) PT INR APTT D-Dimer, Quantitative Sodium Potassium Chloride Carbon Dioxide Anion Gap BUN Creatinine Est GFR ( Amer) Est GFR (Non-Af Amer) POC Glucose (mg/dL) 99 Random Glucose Hemoglobin A1c Calcium Total Bilirubin AST ALT Alkaline Phosphatase Total Creatine Kinase CK-MB (Mass) Troponin I NT-Pro-B Natriuret Pep Total Protein Albumin Globulin Albumin/Globulin Ratio Triglycerides Cholesterol LDL Cholesterol Direct HDL Cholesterol Urine Color Yellow Urine Clarity Clear Urine pH 6.0 Ur Specific [place] 1.014 Urine Protein Negative Urine Glucose (UA) Normal Urine Ketones Negative Urine Blood Negative Urine Nitrate Negative Urine Bilirubin Negative Urine Urobilinogen Normal Ur Leukocyte Esterase Trace Urine WBC (Auto) 2 Ur Squamous Epith Cells 3 Urine HCG, Qual Negative
[2018-01-02] MEDS: Albuterol 0.083% Inhal Sol (2.5 mg/3 mL) UD INH PRN ×2 (03:08→19:50)
--- NOTE | 2018-01-02 05:36 | HP ---
Copied To: Junior Valladares MD Attending MD: Junior Valladares MD CHIEF COMPLAINT: Dizziness and syncope x few hours. HISTORY OF PRESENT ILLNESS: This is a 52-year-old female with a history of obesity, sleep apnea, hypertension, hyperlipidemia. The patient is waiting for her bypass. She also has a history of chronic depression and osteoarthritis. The patient on the day of admission was walking in her apartment and while she was walking, she felt dizzy, she syncopized, and she also develops substernal chest pain, which is persistent, continuous, dull in the substernal area, nonradiating, not associated with diaphoresis, dizziness. She has cough. She has no shortness of breath. There is no relation of chest pain with exertion, deep inspiration, or food intake. She denies any history of dyspepsia. She denies any history of nausea, vomiting, or diarrhea. Denies any history of polyuria, polydipsia, or polyphagia, She denies any history of hematuria or pyuria. She denies any history of sneezing, itchy eyes, or itchy nose. She denies any cough. She denies any back pain. She has joint pain, hip pain, body pain, tiredness, anorexia, malaise, and fatigue. She is nonsmoker, non EtOH user. CURRENT MEDICATIONS: At home, she takes tramadol, clonidine, Norvasc, Singulair, Cozaar, Lasix, Flonase, Benadryl, Pulmicort Respules, aspirin, Ventolin HFA, Naprosyn, Claritin-D. SOCIAL HISTORY: She is nonsmoker and non-EtOH user. PHYSICAL EXAMINATION: GENERAL: Middle-aged female in no acute distress. VITAL SIGNS: Blood pressure 96/64, pulse 66, respiratory rate 20, temperature 98.3. SKIN: No rashes. No purpura. No turgor. No petechiae. HEENT: Atraumatic and normocephalic. Negative pallor. Negative jaundice. Extraocular movements are intact. NECK: Supple. No JVD. No lymph node. No thyromegaly. No carotid bruits. CHEST WALL: Bilaterally symmetrical expansion. LUNGS: Bilaterally clear. No rales. No rhonchi. CARDIOVASCULAR SYSTEM: S1, S2 are regular. No heaves. No thrill. ABDOMEN: Soft and nontender. Bowel sounds are positive. RECTAL: No masses. No bleeding. EXTREMITIES: No clubbing, cyanosis, or edema. CENTRAL NERVOUS SYSTEM: Awake, alert and oriented x3. Cranial nerves II-XII are normal. Power 5/5 x4. Plantars are downgoing. ASSESSMENT: 1. Dizziness, near syncope. It could be related with sleep apnea. It could be esophageal. Could be cardiac arrhythmia. Could be coronary ischemia. 2. Chest pain, rule out coronary artery disease. 3. Bronchial asthma. 4. . 5. Morbid obesity. PLAN: Admit. Cardiac enzymes x3 have been negative. Monitor the patient. Junior Valladares MD
[2018-01-02] MEDS: Budesonide 0.25 mg/2 ml Inhal Susp UD INH SCH ×2 (07:31→19:50)
[2018-01-02] MEDS: Enoxaparin 40 mg Syringe SC SCH (10:45)
[2018-01-02] MEDS: Fluticasone Nasal 50 mcg/Spray NS SCH (10:46)
--- NOTE | 2018-01-02 16:33 | CP.PCM.CON ---
<Ananda Bashir E - Last Filed: 01/02/18 16:19> History of Present Illness - History of Present Illness History of Present Illness: Cardiology Consult note ( Dr. Cannon's service) CC: Syncope HPI: Patient is a 51 year old with past medical history of HTN, Asthma, OA, morbid obesity, sleep apnea and angina who presents to the hospital with complaints of syncope. Ex Chef consultation was placed for syncope work- up. As per patient, she was walking out of her kitchen when she felt dizzy and syncopized. Patient states she does not recall what happened and unsure of length of unconsciousness. Patient woke up and had mild headache but she was oriented to place, time and person. Patient denies fecal/urine incontinence during the episode. PMD: Dr. Mancia PMHx: HTN, Asthma, OA and morbid obesity, PSHx: 5 c sections, hernia repair FHx: CAD in mom and sister Medications: Patient recalls tramadol 50mg PO TID and Norvasc 10mg PO daily. Please refer to the EMR for complete list Allergies: NKDA Social: denies tobacco, ETOH or drug use Review of Systems - EENT Eyes: absent: Blurred Vision, Change in Vision Ears: Dizziness. absent: Ear Discharge, Ear Pain, Tinnitus Nose/Mouth/Throat: absent: Nasal Congestion - Cardiovascular Cardiovascular: Chest Pain, Chest Pain at Rest, Lightheadedness. absent: Chest Pain with Activity, Diaphoresis, Dyspnea on Exertion, Edema, Orthopnea, Palpitations - Respiratory Respiratory: absent: Dyspnea - Gastrointestinal Gastrointestinal: absent: Abdominal Pain, Nausea, Vomiting - Neurological Neurological: Dizziness Past Patient History - Infectious Disease Hx of Infectious Diseases: None - Past Medical History & Family History Past Medical History?: Yes - Past Social History Smoking Status: Never Smoked - CARDIAC Hx Cardiac Disorders: Yes Hx Hypertension: Yes Hx Peripheral Edema: Yes - PULMONARY Hx Respiratory Disorders: Yes Hx Asthma: Yes Hx Chronic Obstructive Pulmonary Disease (COPD): Yes Hx Pneumonia: Yes (2016) Hx Sleep Apnea: Yes (on CPAP) - NEUROLOGICAL Hx Neurological Disorder: No - HEENT Hx HEENT Problems: No - RENAL Hx Chronic Kidney Disease: No - ENDOCRINE/METABOLIC Hx Endocrine Disorders: No - HEMATOLOGICAL/ONCOLOGICAL Hx Blood Disorders: No - INTEGUMENTARY Hx Dermatological Problems: No - MUSCULOSKELETAL/RHEUMATOLOGICAL Hx Falls: Yes - GASTROINTESTINAL Hx Gastrointestinal Disorders: No Other/Comment: HERNIA REPAIR 28 years ago - GENITOURINARY/GYNECOLOGICAL Hx Genitourinary Disorders: No - PSYCHIATRIC Hx Substance Use: No - SURGICAL HISTORY Hx Surgeries: Yes Hx Section: Yes (x5) Hx Herniorrhaphy: Yes (28 years ago) - ANESTHESIA Hx Anesthesia: Yes Hx Anesthesia Reactions: No Hx Malignant Hyperthermia: No Has any member of the family had a problem w/ anesthesia?: No Meds Allergies/Adverse Reactions: Allergies Allergy/AdvReac Type Severity Reaction Status Date / Time No Known Allergies Allergy Verified 11/17/17 20:25 - Medications Medications: Current Medications Albuterol (Ventolin Hfa 90 Mcg/Actuation (8 G)) 1 puff IH Q4 PRN PRN Reason: Shortness of Breath Albuterol Sulfate (Albuterol 0.083% Inhal Breann (2.5 Mg/3 Ml) Ud) 2.5 mg INH RQ6 PRN PRN Reason: Wheezing Last Admin: 01/02/18 03:08 Dose: 2.5 mg Amlodipine Besylate (Norvasc) 10 mg PO DAILY [facility] [place] Last Admin: 01/02/18 10:45 Dose: 10 mg Aspirin (Aspirin Chewable) 81 mg PO DAILY [facility] Last Admin: 01/02/18 10:46 Dose: 81 mg Aspirin (Aspirin Chewable) 81 mg PO DAILY [facility] [place] Last Admin: 01/02/18 10:46 Dose: Not Given Budesonide (Pulmicort Respules) 0.25 mg INH RQ12 [facility] [place] Last Admin: 01/02/18 07:31 Dose: Not Given Diphenhydramine HCl (Benadryl) 50 mg PO Q6H PRN PRN Reason: Itching / Pruritus Enoxaparin Sodium (Lovenox) 40 mg SC DAILY [facility] Last Admin: 01/02/18 10:45 Dose: 40 mg Fluticasone Propionate (Flonase) 1 spr NS DAILY [facility] Last Admin: 01/02/18 10:46 Dose: 1 spr Furosemide (Lasix) 20 mg PO DAILY [facility] [place] Last Admin: 01/02/18 10:45 Dose: 20 mg Losartan Potassium (Cozaar) 50 mg PO DAILY [facility] [place] Last Admin: 01/02/18 10:46 Dose: 50 mg Montelukast Sodium (Singulair) 10 mg PO DAILY [facility] [place] Last Admin: 01/02/18 10:46 Dose: 10 mg Pneumococcal Polyvalent Vaccine (Pneumovax 23 Vaccine) 0.5 ml IM .ONCE ONE Stop: 01/03/18 14:01 Rosuvastatin Calcium (Crestor) 10 mg PO HS [facility] [place] Last Admin: 01/01/18 21:46 Dose: 10 mg Tramadol HCl (Ultram) 50 mg PO Q8 [facility] [place] Last Admin: 01/02/18 13:14 Dose: 50 mg Physical Exam - Constitutional Appears: No Acute Distress - Head Exam Head Exam: ATRAUMATIC, NORMAL INSPECTION - Eye Exam Eye Exam: EOMI, Normal appearance - ENT Exam ENT Exam: Mucous Membranes Moist - Respiratory Exam Respiratory Exam: Clear to Auscultation Bilateral, NORMAL BREATHING PATTERN. absent: Accessory Muscle Use, Chest Wall Tenderness, Prolonged Expiratory Phase , Rhonchi, Wheezes, Respiratory Distress - Cardiovascular Exam Cardiovascular Exam: REGULAR RHYTHM, +S1, +S2 - GI/Abdominal Exam GI & Abdominal Exam: Normal Bowel Sounds, Soft. absent: Diminished Bowel Sounds , Distended, Firm, Guarding, Tenderness - Extremities Exam Extremities exam: Negative for: pedal edema - Neurological Exam Neurological exam: Alert, Oriented x3 - Psychiatric Exam Psychiatric exam: Normal Affect - Skin Skin Exam: Normal Color Results - Vital Signs Recent Vital Signs: Last Vital Signs Temp 98.4 F 01/02/18 16:00 Pulse 68 01/02/18 16:00 Resp 20 01/02/18 16:00 BP 115/68 01/02/18 16:00 Pulse Ox 95 01/02/18 16:00 - Labs Result Diagrams: 01/01/18 00:30 01/01/18 00:30 Labs: Laboratory Results - last 24 hr 01/01/18 01/01/18 01/01/18 12:55 16:18 16:59 POC Glucose (mg/dL) 135 H 106 Urine Color Yellow Urine Clarity Clear Urine pH 6.0 Ur Specific [place] 1.014 Urine Protein Negative Urine Glucose (UA) Normal Urine Ketones Negative Urine Blood Negative Urine Nitrate Negative Urine Bilirubin Negative Urine Urobilinogen Normal Ur Leukocyte Esterase Trace Urine WBC (Auto) 2 Ur Squamous Epith Cells 3 Urine HCG, Qual Negative 01/01/18 21:41 POC Glucose (mg/dL) 99 Urine Color Urine Clarity Urine pH Ur Specific [place] Urine Protein Urine Glucose (UA) Urine Ketones Urine Blood Urine Nitrate Urine Bilirubin Urine Urobilinogen Ur Leukocyte Esterase Urine WBC (Auto) Ur Squamous Epith Cells Urine HCG, Qual Assessment & Plan (1) Syncope Assessment and Plan: Patient is a 52 year old female with past medical history HTN, Asthma, OA, morbid obesity, sleep apnea and angina, with admitted diagnosis of syncope: - Head CT: Unremarkable -Troponin negative X3 with no EKG changes from previous EKGs . NSR with first degree block - Echocardiogram ( 06/17/17): Mild concentric LV hypertrophy. Grade I- abnormal relaxation . LA midly dialted. EF of 65% - As per documentation, Ex Chef, Dr. Tyler has noted normal cardiac catherization 3 years ago. - Consider carotid doppler and Neurology work-up - As per documentation, Ex Chef, Dr. Tyler has noted normal cardiac catherization 3 years ago. - Will f/u orthostatic vitals - No further cardiac work-up at this point All plans and management discussed with Dr. Cannon Status: Acute <Jose Cannon - Last Filed: 01/02/18 23:20> Meds - Medications Medications: Current Medications Albuterol (Ventolin Hfa 90 Mcg/Actuation (8 G)) 1 puff IH Q4 PRN PRN Reason: Shortness of Breath Albuterol Sulfate (Albuterol 0.083% Inhal Breann (2.5 Mg/3 Ml) Ud) 2.5 mg INH RQ6 PRN PRN Reason: Wheezing Last Admin: 01/02/18 19:50 Dose: 2.5 mg Amlodipine Besylate (Norvasc) 10 mg PO DAILY [facility] [place] Last Admin: 01/02/18 10:45 Dose: 10 mg Aspirin (Aspirin Chewable) 81 mg PO DAILY [facility] Last Admin: 01/02/18 10:46 Dose: Not Given Budesonide (Pulmicort Respules) 0.25 mg INH RQ12 [facility] Last Admin: 01/02/18 19:50 Dose: 0.25 mg Diphenhydramine HCl (Benadryl) 50 mg PO Q6H PRN PRN Reason: Itching / Pruritus Enoxaparin Sodium (Lovenox) 40 mg SC DAILY [facility] Last Admin: 01/02/18 10:45 Dose: 40 mg Fluticasone Propionate (Flonase) 1 spr NS DAILY [facility] Last Admin: 01/02/18 10:46 Dose: 1 spr Furosemide (Lasix) 20 mg PO DAILY [facility] [place] Last Admin: 01/02/18 10:45 Dose: 20 mg Losartan Potassium (Cozaar) 50 mg PO DAILY [facility] [place] Last Admin: 01/02/18 10:46 Dose: 50 mg Montelukast Sodium (Singulair) 10 mg PO DAILY [facility] Last Admin: 01/02/18 10:46 Dose: 10 mg Pneumococcal Polyvalent Vaccine (Pneumovax 23 Vaccine) 0.5 ml IM .ONCE ONE Stop: 01/03/18 14:01 Rosuvastatin Calcium (Crestor) 10 mg PO HS [facility] [place] Last Admin: 01/02/18 23:02 Dose: 10 mg Tramadol HCl (Ultram) 50 mg PO Q8 [facility] Last Admin: 01/02/18 23:02 Dose: 50 mg Results - Vital Signs Recent Vital Signs: Last Vital Signs Temp 98.4 F 01/02/18 16:00 Pulse 78 01/02/18 16:00 Resp 20 01/02/18 16:00 BP 115/68 01/02/18 16:00 Pulse Ox 95 01/02/18 16:00 - Labs Result Diagrams: 01/01/18 00:30 01/01/18 00:30 Labs: Laboratory Results - last 24 hr 01/02/18 01/02/18 01/02/18 07:17 10:58 17:06 POC Glucose (mg/dL) 97 140 H 101 Urine Opiates Screen Urine Methadone Screen Ur Barbiturates Screen Ur Phencyclidine Scrn Ur Amphetamines Screen U Benzodiazepines Scrn U Oth Cocaine Metabols U Cannabinoids Screen 01/02/18 01/02/18 18:38 20:50 POC Glucose (mg/dL) 117 H Urine Opiates Screen Negative Urine Methadone Screen Negative Ur Barbiturates Screen Negative Ur Phencyclidine Scrn Negative Ur Amphetamines Screen Negative U Benzodiazepines Scrn Negative U Oth Cocaine Metabols Negative U Cannabinoids Screen Negative Assessment & Plan - Assessment and Plan (Free Text) Assessment: Patient seen and evaluated personally by me Plan of care d/w the resident and as documented
[2018-01-02 19:01] LABS: BARBITURATES, UR NEGATIVE (NEGATIVE); BENZODIAZEPINES, UR NEGATIVE (NEGATIVE); OPIATES, UR NEGATIVE (NEGATIVE); PHENCYCLIDINE, UR NEGATIVE (NEGATIVE)
--- NOTE | 2018-01-02 22:21 | CP.PCM.PN ---
Objective - Vital Signs/Intake and Output Vital Signs (last 24 hours): Temp Pulse Resp BP Pulse Ox 98.4 F 78 20 115/68 95 01/02/18 16:00 01/02/18 16:00 01/02/18 16:00 01/02/18 16:00 01/02/18 16:00 Intake and Output: 01/02/18 01/03/18 18:59 06:59 Intake Total 720 Balance 720 - Medications Medications: Current Medications Albuterol (Ventolin Hfa 90 Mcg/Actuation (8 G)) 1 puff IH Q4 PRN PRN Reason: Shortness of Breath Albuterol Sulfate (Albuterol 0.083% Inhal Breann (2.5 Mg/3 Ml) Ud) 2.5 mg INH RQ6 PRN PRN Reason: Wheezing Last Admin: 01/02/18 19:50 Dose: 2.5 mg Amlodipine Besylate (Norvasc) 10 mg PO DAILY [facility] Last Admin: 01/02/18 10:45 Dose: 10 mg Aspirin (Aspirin Chewable) 81 mg PO DAILY [facility] Last Admin: 01/02/18 10:46 Dose: Not Given Budesonide (Pulmicort Respules) 0.25 mg INH RQ12 [facility] Last Admin: 01/02/18 19:50 Dose: 0.25 mg Diphenhydramine HCl (Benadryl) 50 mg PO Q6H PRN PRN Reason: Itching / Pruritus Enoxaparin Sodium (Lovenox) 40 mg SC DAILY [facility] Last Admin: 01/02/18 10:45 Dose: 40 mg Fluticasone Propionate (Flonase) 1 spr NS DAILY [facility] Last Admin: 01/02/18 10:46 Dose: 1 spr Furosemide (Lasix) 20 mg PO DAILY [facility] Last Admin: 01/02/18 10:45 Dose: 20 mg Losartan Potassium (Cozaar) 50 mg PO DAILY [facility] Last Admin: 01/02/18 10:46 Dose: 50 mg Montelukast Sodium (Singulair) 10 mg PO DAILY [facility] Last Admin: 01/02/18 10:46 Dose: 10 mg Pneumococcal Polyvalent Vaccine (Pneumovax 23 Vaccine) 0.5 ml IM .ONCE ONE Stop: 01/03/18 14:01 Rosuvastatin Calcium (Crestor) 10 mg PO [facility] Last Admin: 01/01/18 21:46 Dose: 10 mg Tramadol HCl (Ultram) 50 mg PO Q8 [facility] Last Admin: 01/02/18 13:14 Dose: 50 mg - Labs Labs: 01/01/18 00:30 01/01/18 00:30 PT 11.6 SECONDS (9.7-12.2) 01/01/18 00:30 INR 1.1 01/01/18 00:30 APTT 33 SECONDS (21-34) 01/01/18 00:30
--- NOTE | 2018-01-03 00:25 | CON ---
Copied To: Gabe Garcia MD Attending MD: Gabe Garcia MD DATE: 01/02/2018 REASON FOR CONSULTATION: Complaining of dizziness and syncope. HISTORY OF PRESENT ILLNESS: This is a 52-year-old female with past medical history of hypertension, hyperlipidemia, and the patient was also complaining of depression and arthritis. On admission while walking in the apartment, she felt dizzy and had a syncopal episode, lost consciousness, and well with the patient's past medical history of hypertension, sleep apnea, obesity, hyperlipidemia, depression, and osteoarthritis. CURRENT MEDICATIONS: Norvasc, tramadol, clonidine, Cozaar, Benadryl, and aspirin. PHYSICAL EXAMINATION: HEENT: Normocephalic, atraumatic. NECK: Supple. NEUROLOGIC: Awake, alert, and oriented to self and place. Cranial nerves II through XII were tested. Pupil reactive. EOM intact. Visual field full. No facial asymmetry. Tongue midline. Motor examination: Moves all the extremities equally. Tone normal. Deep tendon reflexes 1+. Both plantars are downgoing. Sensory appears intact. Cerebral gait, deferred. IMPRESSION: Syncopal episode, less likely seizure. CAT scan of the head was done, which was unremarkable. No bleed and workup in progress. We will do electroencephalogram and continue present management. We will follow up. Gabe Garcia MD
--- NOTE | 2018-01-03 02:03 | PN ---
Copied To: Junior Valladares MD Attending MD: Junior Valladares MD DATE: 01/02/2018 SUBJECTIVE: The patient is feeling better. She denies any dizziness. This is a lady who has a history of cardiac cath done three years ago, which was negative. She was seen by Neurology. No further workup was ordered. The patient denies any chest pain or dizziness. There are no fevers, chills, or rigor. No cough. No sore throat. No nausea or vomiting. ALLERGIES: UNKNOWN ALLERGIES. CURRENT MEDICATIONS: Unknown. PHYSICAL EXAMINATION: LUNGS: Bilaterally clear. CARDIOVASCULAR SYSTEM: S1, S2 are regular. ABDOMEN: Soft. ASSESSMENT: 1. Dizziness; syncope with vasovagal. 2. Chest pain, noncoronary. 3. Morbid obesity. 4. Hypertension. PLAN: Monitor the patient. Most likely, she will not require any further workup. Junior Valladares MD
[2018-01-03 07:41] VITALS: TEMP 97.8; O2SAT 94
[2018-01-03 08:12] VITALS: PULSE 64
--- NOTE | 2018-01-03 08:59 | CARD ---
APPROVED REPORT Date of service: 12/31/2017 EKG Measurement Heart [id number] <Conclusion> Sinus rhythm with 1st degree AV block Nonspecific ST abnormality Abnormal ECG
[2018-01-03] MEDS ORDERED: Oxycodone/Acetaminophen 5/325 mg Tab PO STA (10:25)
[2018-01-03] MEDS: Enoxaparin 40 mg Syringe SC SCH (10:26)
[2018-01-03] MEDS: Fluticasone Nasal 50 mcg/Spray NS SCH (10:27)
[2018-01-03 10:28] VITALS: BP 137/85
--- NOTE | 2018-01-03 11:13 | CP.PCM.PCO ---
Physician Communication Note - Physician Communication Note Physician Communication Note: EEG is normal. Taper of tramdol. F/U as outpt.
--- NOTE | 2018-01-03 13:10 | CP.PCM.PN ---
Subjective - Date & Time of Evaluation Date of Evaluation: 01/03/18 Time of Evaluation: 11:10 - Subjective Subjective: Patient seen today , denies any chest pain, sob, cough, fever, chills, N/V/D , No overnight events reported by RN a febrile Objective - Vital Signs/Intake and Output Vital Signs (last 24 hours): Temp Pulse Resp BP Pulse Ox 97.8 F 64 20 137/85 94 L 01/03/18 07:40 01/03/18 08:00 01/03/18 07:40 01/03/18 10:27 01/03/18 07:40 - Medications Medications: Current Medications Albuterol (Ventolin Hfa 90 Mcg/Actuation (8 G)) 1 puff IH Q4 PRN PRN Reason: Shortness of Breath Albuterol Sulfate (Albuterol 0.083% Inhal Breann (2.5 Mg/3 Ml) Ud) 2.5 mg INH RQ6 PRN PRN Reason: Wheezing Last Admin: 01/02/18 19:50 Dose: 2.5 mg Amlodipine Besylate (Norvasc) 10 mg PO DAILY [facility] Last Admin: 01/03/18 10:27 Dose: 10 mg Aspirin (Aspirin Chewable) 81 mg PO DAILY [facility] Last Admin: 01/03/18 10:26 Dose: 81 mg Budesonide (Pulmicort Respules) 0.25 mg INH RQ12 [facility] Last Admin: 01/02/18 19:50 Dose: 0.25 mg Diphenhydramine HCl (Benadryl) 50 mg PO Q6H PRN PRN Reason: Itching / Pruritus Enoxaparin Sodium (Lovenox) 40 mg SC DAILY [facility] Last Admin: 01/03/18 10:26 Dose: 40 mg Fluticasone Propionate (Flonase) 1 spr NS DAILY [facility] Last Admin: 01/03/18 10:27 Dose: 1 spr Furosemide (Lasix) 20 mg PO DAILY [facility] Last Admin: 01/03/18 10:27 Dose: 20 mg Losartan Potassium (Cozaar) 50 mg PO DAILY [facility] Last Admin: 01/03/18 10:27 Dose: 50 mg Montelukast Sodium (Singulair) 10 mg PO DAILY [facility] Last Admin: 01/03/18 10:26 Dose: 10 mg Pneumococcal Polyvalent Vaccine (Pneumovax 23 Vaccine) 0.5 ml IM .ONCE ONE Stop: 01/03/18 14:01 Rosuvastatin Calcium (Crestor) 10 mg PO HS [facility] Last Admin: 01/02/18 23:02 Dose: 10 mg Tramadol HCl (Ultram) 50 mg PO Q8 [facility] Last Admin: 01/03/18 05:41 Dose: 50 mg - Labs Labs: 01/01/18 00:30 01/01/18 00:30 PT 11.6 SECONDS (9.7-12.2) 01/01/18 00:30 INR 1.1 01/01/18 00:30 APTT 33 SECONDS (21-34) 01/01/18 00:30 - Constitutional Appears: Well, No Acute Distress - Respiratory Exam Respiratory Exam: Wheezes (RUL), NORMAL BREATHING PATTERN - Cardiovascular Exam Cardiovascular Exam: REGULAR RHYTHM, +S1, +S2 Assessment and Plan - Assessment and Plan (Free Text) Assessment: A/P 52 yr old female with pmhx of Asthma, Bipolar Disorder, COPD, Depression, HTN , admitted with chest pain troponin x 3 - negative with no EKG changes from previous EKGs Dr. Cannon cardiology consult - last cath - negative no furtehr cardiac intervention , continue with medications Dr. Garcia consulted for syncope , EEG normal and f/u with his office D/W Dr. Valladares, cleared for discharge home today and f/u wiht PMD office in 3- 5 days Discharge plan discussed with ignacia who understands and agrees with plan Patient instructed to returns to ER or call PMD if symptoms returns or any other concerning symptoms RX given
--- NOTE | 2018-01-03 13:17 | VASCLAB ---
Date of service: 01/03/2018 PROCEDURE: HISTORY: Syncope COMPARISON: None available. TECHNIQUE: Grayscale and duplex Doppler evaluation of the cervical carotid and vertebral arteries were performed. The common carotid, carotid bifurcations and cervical Internal Carotid Artery (ICA) and proximal External Carotid Artery (ECA) were evaluated. The vertebral arteries were evaluated for gross patency and flow direction. Report prepared by Angelina Peoples, TRINA, S FINDINGS: RIGHT CAROTID ARTERIES: 1. Common Carotid Artery: No significant focal plaque formation of the right common carotid artery. Maximum Peak Systolic velocity: 106 cm/sec: End-diastolic velocity 19 cm/sec. 2. Carotid Bifurcation: plaque formation. Maximum Peak Systolic velocity: 76 cm/sec: End-diastolic velocity 19 cm/sec. 3. Internal Carotid Artery: Plaque description: 3.1. Proximal Segment: Peak systolic velocity 69 cm/sec: End-diastolic velocity 25 cm/sec - % stenosis 3.2. Middle Segment: Peak systolic velocity 71 cm/sec: End-diastolic velocity 28 cm/sec - % stenosis 3.3. Distal Segment: Peak systolic velocity 106 cm/sec: End-diastolic velocity 36 cm/sec - % stenosis 4. External Carotid Artery: No significant focal plaque formation. Peak systolic velocity 60 cm/sec 5. ICA/CCA Ratio: 1.2 LEFT CAROTID ARTERIES: 1. Common Carotid Artery: No significant focal plaque formation of the left common carotid artery. Maximum Peak Systolic velocity: 121 cm/sec: End-diastolic velocity 23 cm/sec. 2. Carotid Bifurcation: plaque formation. Maximum Peak Systolic velocity: 87 cm/sec: End-diastolic velocity 25 cm/sec. 3. Internal Carotid Artery: Plaque description: 3.1. Proximal Segment: Peak systolic velocity 90 cm/sec: End-diastolic velocity 35 cm/sec - % stenosis 3.2. Middle Segment: Peak systolic velocity 71 cm/sec: End-diastolic velocity 26 cm/sec - % stenosis 3.3. Distal Segment: Peak systolic velocity 70 cm/sec: End-diastolic velocity 25 cm/sec - % stenosis 4. External Carotid Artery: No significant focal plaque formation. Peak systolic velocity 57 cm/sec 5. ICA/CCA Ratio: 0.9 VERTEBRAL ARTERIES: 1. Right Vertebral Artery: The right vertebral artery flow direction is antegrade. 2. Left Vertebral Artery: The left vertebral artery flow direction is antegrade. OTHER FINDINGS: 1. Right Brachial Blood pressure: 140 mmHg. 2. Left Brachial Blood pressure: 142 mmHg. IMPRESSION: RIGHT: Duplex scan does not suggest hemodynamically significant stenosis of the right extracranial carotid arteries. LEFT: Duplex scan does not suggest hemodynamically significant stenosis of the left extracranial carotid arteries.
[2018-01-03] MEDS: Budesonide 0.25 mg/2 ml Inhal Susp UD INH SCH (13:42)
[2018-01-03] MEDS: Albuterol 0.083% Inhal Sol (2.5 mg/3 mL) UD INH PRN (13:42)
[2018-01-03] MEDS ORDERED: Pneumococcal 23-Valent Vaccine IM ONE (14:00)
--- NOTE | 2018-01-04 23:19 | DS ---
Copied To: Junior Valladares MD Attending MD: Junior Valladares MD ADMISSION DIAGNOSES: Chest pain, syncope. DISCHARGE DIAGNOSES: Vasovagal syncope, noncoronary chest pain, obstructive sleep apnea, morbid obesity, hypertension. HOSPITAL COURSE: This is a 52-year-old female with a history of hypertension, osteoarthritis, hyperlipidemia, morbid obesity with sleep apnea. Awaiting for BiPAP machine. At home, she developed chest pain and syncope. She was admitted. Started on fall precaution. The patient's condition started improving. She felt better and she is being discharged with outpatient followup. Condition upon discharge is stable. She had a cardiac cath three years ago, which was negative. The patient did not have any event. Her cardiac enzymes are negative. PHYSICAL EXAMINATION: VITAL SIGNS: BP 137/85, pulse 64, respiratory rate 20, temperature 97.8. The patient's hematology, WBC 5.6, hemoglobin 12.3, hematocrit 38, platelet 250. Chemistry shows sodium 138, potassium 4.6, chloride 100, bicarb 29, BUN 16, creatinine 0.6. Total cholesterol 174, , triglycerides 177. CONDITION UPON DISCHARGE: Stable. Junior Valladares MD
== END 2018-01-03 14:43 | disposition home or self-care (01) | DRG 141 ==
LOC: C.ER 22:59 → C.6T 01-01 03:39
PROVIDERS: ADMIT Internal Medicine; ATTEND Internal Medicine
DX: R55 Syncope and collapse (principal); J44.9 Chronic obstructive pulmonary disease, unspecified; R07.89 Other chest pain; E66.01 Morbid (severe) obesity due to excess calories; Z68.43 Body mass index [BMI] 50.0-59.9, adult; E78.5 Hyperlipidemia, unspecified; F31.9 Bipolar disorder, unspecified; G47.30 Sleep apnea, unspecified; I10 Essential (primary) hypertension; I44.0 Atrioventricular block, first degree; W19.XXXA Unspecified fall, initial encounter; I25.10 Atherosclerotic heart disease of native coronary artery without angina pectoris

== ENCOUNTER 2018-02-06 01:47 | Observation (INO) | payer OTHER ==
[2018-02-06 01:48] VITALS: BMI 52.8
--- NOTE | 2018-02-06 02:41 | C.PDOC ---
History Of Present Illness 52 year old female presents to the ED c/o left sided chest pain that she described as pressure that started tonight associated with nausea and dizziness. Patient describes dizziness as lightheadedness associated with the chest pain, but no syncope. Patient is also c/o feeling SOB that she reports feels different from her asthma. Patient denies URI symptoms, fever, chills, vomiting, weakness, numbness. Pt was admitted for syncope and chest pain on 01/01 and states that she felt similar to last episode which concerned her and made her come to ED. 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 Time Seen by Provider: 02/06/18 02:13 Chief Complaint (Nursing): Chest Pain History Per: Patient History/Exam Limitations: no limitations Onset/Duration Of Symptoms: Hrs Current Symptoms Are (Timing): Still Present Quality: Pressure Recent travel outside of the [place]: No Additional History Per: Patient Past Medical History Reviewed: Historical Data, Nursing Documentation, Vital Signs Vital Signs: Last Vital Signs Temp 99.4 F 02/06/18 01:58 Pulse 67 02/06/18 02:00 Resp 16 02/06/18 01:58 BP 150/76 02/06/18 02:00 Pulse Ox 99 02/06/18 01:58 - Medical History PMH: Anxiety, Arthritis, Asthma, Bipolar Disorder, COPD, Depression, HTN, Peripheral Edema, Pneumonia (2016), Sleep Apnea (on CPAP) Denies: Chronic Kidney Disease Surgical History: Hernia Repair, Family History: States: Unknown Family Hx - Social History Hx Tobacco Use: No Hx Alcohol Use: No Hx Substance Use: No - Immunization History Hx Tetanus Toxoid Vaccination: No Hx Influenza Vaccination: No Hx Pneumococcal Vaccination: No Review Of Systems Constitutional: Negative for: Fever, Chills Cardiovascular: Positive for: Chest Pain. Negative for: Palpitations Respiratory: Negative for: Cough, Shortness of Breath Gastrointestinal: Negative for: Nausea, Vomiting, Abdominal Pain Neurological: Positive for: Headache, Dizziness. Negative for: Weakness, Numbness Physical Exam - Physical Exam Appears: Non-toxic, No Acute Distress, Other (morbidly obese) Skin: Normal Color, Warm, Dry Head: Atraumatic, Normacephalic Eye(s): bilateral: Normal Inspection Oral Mucosa: Moist Neck: Normal ROM, Supple Chest: Symmetrical Cardiovascular: Rhythm Regular Respiratory: Normal Breath Sounds, No Rales, No Rhonchi, No Wheezing Gastrointestinal/Abdominal: Soft, No Tenderness, No Guarding, No Rebound, Other (obese) Extremity: Normal ROM, No Tenderness, No Swelling Neurological/Psych: Oriented x3, Normal Speech, Normal Cognition Gait: Steady ED Course And Treatment - Laboratory Results Result Diagrams: 02/06/18 02:59 02/06/18 02:59 ECG: Interpreted By Me, Viewed By Me ECG Rhythm: Sinus Rhythm ECG Interpretation: No Changes From Prior Rate From EC (BPM) O2 Sat by Pulse Oximetry: 99 (ON RA) Pulse Ox Interpretation: Normal - Radiology CXR Interpretation: Yes: No Acute Disease Progress Note: Plan: - CXR. - EKG. Pt is requesting albuterol treatment although no wheezes , states feels tightness to mid chest. Now pt denies to RN to have taken PO aspirin at home yesterday or BUSINESS ACCOUNT SPECIALIST. tylenol and baby aspirin ordered. Case d/w Dr Bernard - [facility] global transportation manager for admission to tele-obs Disposition - Disposition Referrals: Non [facility] Provider, [Primary Care Provider] - Disposition: HOSPITALIZED Disposition Time: 04:21 Condition: GOOD Forms: [employer] ([place]) - Clinical Impression Clinical Impression: Chest pain - PA / FOREST EXAMINER / Resident Statement MD/DO has reviewed & agrees with the documentation as recorded. - Scribe Statement The provider has reviewed the documentation as recorded by the Scribe Satnam Yuan All medical record entries made by the Scribe were at my direction and personally dictated by me. I have reviewed the chart and agree that the record accurately reflects my personal performance of the history, physical exam, medical decision making, and the department course for this patient. I have also personally directed, reviewed, and agree with the discharge instructions and disposition.
[2018-02-06] MEDS ORDERED: Albuterol 0.083% Inhal Sol (2.5 mg/3 mL) UD IH STA (02:48)
[2018-02-06] MEDS ORDERED: Albuterol-Ipratrop 3 mg / 0.5 (3 ml) UD ONE (02:57)
[2018-02-06 03:02] LABS: BASO # 0.1 K/uL (0.0-0.2); EOS # 0.3 K/uL (0.0-0.7); EOS % 5.1 % (0.0-4.0); HEMOGLOBIN 13.2 g/dL (11.0-16.0); LYMPH # 2.5 K/uL (1.0-4.3); LYMPH % 39.2 % (20.0-40.0); MEAN CELL VOLUME 84.9 fL (81.0-99.0); MEAN CORPUSCULAR HEMOGLOBIN 28.3 pg (27.0-31.0); MEAN CORPUSCULAR HGB CONC 33.3 g/dL (33.0-37.0); MEAN PLATELET VOLUME 9.6 fL (7.2-11.7); MONO # 0.4 K/uL (0.0-0.8); MONO % 6.9 % (0.0-10.0); NEUT % 47.8 % (50.0-75.0); NRBC % 0.1 % (0.0-2.0); RBC 4.67 Mil/uL (3.80-5.20); WHITE BLOOD COUNT 6.3 K/uL (4.8-10.8)
[2018-02-06 03:45] LABS: B-TYPE NATRIURETIC PEPTIDE 46.7 pg/mL (0-900)
[2018-02-06 03:49] LABS: ALB/GLOB RATIO 1.2 (1.0-2.1); ALBUMIN 4.5 g/dL (3.5-5.0); ALT/SGPT 33 U/L (9-52); AST/SGOT 24 U/L (14-36); BLOOD UREA NITROGEN 14 mg/dL (7-17); CALCIUM 9.4 mg/dl (8.6-10.4); GFR NON-AFRICAN AMERICAN > 60
[2018-02-06] MEDS ORDERED: Acetaminophen 650mg/20.3ml solution UD PO STA (04:12)
--- NOTE | 2018-02-06 04:54 | CP.PCM.HP ---
<Irene Ospina - Last Filed: 02/06/18 10:36> History of Present Illness - History of Present Illness History of Present Illness: History and Physical - Hospitalist Service CC: Chest pain x 2 days HPI: Patient is a 52 year old female with past medical history of Hypertension, Obstructive sleep apnea, asthma, Hyperlipidemia, anixety who presented to the emergency dept for chest pain x 2 days. Patient states that chest pain started when she was watching TV at home. Chest pain is located in the midsternal area and radiates under her left breast. She describes it as a squeezing sensation that is constant in nature. Patient states that breathing makes it worse and laying on her left side makes it better. She states that she took 2 tablets of Motrin 800mg with no relief in symptoms. Today she started developing dizziness and lightheadedness which prompted the ED visit. Patient was recently admitted to the hospital in December 2017 with similar complaint. Currently she states that chest pain is still there but milder. Rates it a 4/10 currently. She also admits to intermittent shortness of breath. She denies headaches, changes in vision, palpitations, abdominal pain, urinary symptoms, changes in bowel habits. ED course: ASA 81mg, Acetaminophen 975mg x 1, Duonebs treatment PMD: Dr Mancia Allergies: NKDA Medications: Cozaar 50mg daily, Lasix 20mg PO daily, Pulimcort 0.25mg Q12H, Aspirin 81mg daily, Norvasc 10mg daily, Crestor 5mg HS, Singulair 10mg, albuterol Medical History: Hypertension, Obstructive sleep apnea, asthma, Hyperlipidemia, anixety Surgical History: C/S x 5, Hernia repair Social History: Denies alcohol, tobacco, drug use; lives alone Family History: Father - Lung CA (), Mother - HTN, heart problems (decreased), Sister - pancreatic cancer, asthma Present on Admission - Present on Admission Any Indicators Present on Admission: No Past Patient History - Infectious Disease Hx of Infectious Diseases: None - Past Medical History & Family History Past Medical History?: Yes - Past Social History Smoking Status: Never Smoked - CARDIAC Hx Hypertension: Yes Hx Peripheral Edema: Yes - PULMONARY Hx Asthma: Yes Hx Chronic Obstructive Pulmonary Disease (COPD): Yes Hx Pneumonia: Yes (2016) Hx Sleep Apnea: Yes (on CPAP) - NEUROLOGICAL Hx Neurological Disorder: No - HEENT Hx HEENT Problems: No - RENAL Hx Chronic Kidney Disease: No - ENDOCRINE/METABOLIC Hx Endocrine Disorders: No - HEMATOLOGICAL/ONCOLOGICAL Hx Blood Disorders: No - INTEGUMENTARY Hx Dermatological Problems: No - MUSCULOSKELETAL/RHEUMATOLOGICAL Hx Arthritis: Yes - GASTROINTESTINAL Hx Gastrointestinal Disorders: No Other/Comment: HERNIA REPAIR 28 years ago - GENITOURINARY/GYNECOLOGICAL Hx Genitourinary Disorders: No - PSYCHIATRIC Hx Anxiety: Yes Hx Bipolar Disorder: Yes Hx Depression: Yes Hx Substance Use: No - SURGICAL HISTORY Hx Surgeries: Yes Hx Section: Yes (x5) Hx Herniorrhaphy: Yes (28 years ago) - ANESTHESIA Hx Anesthesia: Yes Hx Anesthesia Reactions: No Hx Malignant Hyperthermia: No Meds Allergies/Adverse Reactions: Allergies Allergy/AdvReac Type Severity Reaction Status Date / Time No Known Allergies Allergy Verified 02/06/18 01:55 Physical Exam - Constitutional Appears: No Acute Distress - Head Exam Head Exam: ATRAUMATIC, NORMAL INSPECTION, NORMOCEPHALIC - Eye Exam Eye Exam: EOMI, Normal appearance - ENT Exam ENT Exam: Mucous Membranes Moist - Neck Exam Neck exam: Positive for: Full Rom - Respiratory Exam Respiratory Exam: Clear to Auscultation Bilateral, NORMAL BREATHING PATTERN. absent: Rales, Rhonchi, Wheezes - Cardiovascular Exam Cardiovascular Exam: REGULAR RHYTHM, +S1, +S2. absent: Systolic Murmur Additional comments: Chest pain +reproducible on palpation - GI/Abdominal Exam GI & Abdominal Exam: Normal Bowel Sounds, Soft. absent: Guarding, Rebound, Rigid, Tenderness Additional comments: +obese - Extremities Exam Extremities exam: Positive for: pedal pulses present. Negative for: calf tenderness Additional comments: +1 edema bilaterally - Neurological Exam Neurological exam: Alert, Oriented x3 - Psychiatric Exam Psychiatric exam: Normal Affect, Normal Mood - Skin Skin Exam: Dry, Normal Color, Warm Results - Vital Signs Recent Vital Signs: Last Vital Signs Temp 98.3 F 02/06/18 03:50 Pulse 68 02/06/18 03:50 Resp 20 02/06/18 03:50 BP 143/51 L 02/06/18 03:50 Pulse Ox 99 02/06/18 04:22 - Labs Result Diagrams: 02/06/18 02:59 02/06/18 02:59 Labs: Laboratory Results - last 24 hr 02/06/18 02/06/18 02:59 02:59 WBC 6.3 RBC 4.67 Hgb 13.2 Hct 39.6 MCV 84.9 MCH 28.3 MCHC 33.3 RDW 14.0 Plt Count 250 MPV 9.6 Neut % (Auto) 47.8 L Lymph % (Auto) 39.2 [place] % (Auto) 6.9 Eos % (Auto) 5.1 H Baso % (Auto) 1.0 Neut # (Auto) 3.0 Lymph # (Auto) 2.5 [place] # (Auto) 0.4 Eos # (Auto) 0.3 Baso # (Auto) 0.1 Sodium 144 Potassium 4.1 Chloride 106 Carbon Dioxide 28 Anion Gap 14 BUN 14 Creatinine 0.7 Est GFR ( Amer) > 60 Est GFR (Non-Af Amer) > 60 Random Glucose 101 Calcium 9.4 Total Bilirubin 0.6 AST 24 ALT 33 Alkaline Phosphatase 71 Troponin I < 0.0120 NT-Pro-B Natriuret Pep 46.7 Total Protein 8.2 Albumin 4.5 Globulin 3.7 Albumin/Globulin Ratio 1.2 Assessment & Plan - Assessment and Plan (Free Text) Assessment: A/P: Patient is a 52 year old female with past medical history of Hypertension, Obstructive sleep apnea, COPD, Hyperlipidemia, anixety who presented with 2 day history of chest pain. Chest pain, r/o ACS -Stable, afebrile -Admit to telemetry -EKG on admission unchanged -Initial troponin is negative x 1, trend troponins q6H x 2 -Continue Aspirin 81mg PO daily -Echocardiogram ordered -Cardiology on consult, Dr Reagan, help appreciated Hypertension -BPs on the low side -Will hold home BP meds at this time Asthma -Duonebs Q6H prn shortness of breath -Continue Pulmicort 0.25mg Q12H, Singulair 10mg PO daily Hyperlipidemia -Continue Crestor 5mg PO HS GI/DVT ppx: -Protonix 40mg PO daily -Lovenox 40mg SC daily Plan discussed with Dr Joana Ospina DO PGY-2 <Rich Bernard - Last Filed: 02/06/18 11:08> Results - Vital Signs Recent Vital Signs: Last Vital Signs Temp 98 F 02/06/18 08:00 Pulse 64 02/06/18 08:00 Resp 20 02/06/18 08:00 BP 108/56 L 02/06/18 08:00 Pulse Ox 97 02/06/18 08:00 - Labs Result Diagrams: 02/06/18 02:59 02/06/18 02:59 Labs: Laboratory Results - last 24 hr 02/06/18 02/06/18 02:59 02:59 WBC 6.3 RBC 4.67 Hgb 13.2 Hct 39.6 MCV 84.9 MCH 28.3 MCHC 33.3 RDW 14.0 Plt Count 250 MPV 9.6 Neut % (Auto) 47.8 L Lymph % (Auto) 39.2 [place] % (Auto) 6.9 Eos % (Auto) 5.1 H Baso % (Auto) 1.0 Neut # (Auto) 3.0 Lymph # (Auto) 2.5 [place] # (Auto) 0.4 Eos # (Auto) 0.3 Baso # (Auto) 0.1 Sodium 144 Potassium 4.1 Chloride 106 Carbon Dioxide 28 Anion Gap 14 BUN 14 Creatinine 0.7 Est GFR ( Amer) > 60 Est GFR (Non-Af Amer) > 60 Random Glucose 101 Calcium 9.4 Total Bilirubin 0.6 AST 24 ALT 33 Alkaline Phosphatase 71 Troponin I < 0.0120 NT-Pro-B Natriuret Pep 46.7 Total Protein 8.2 Albumin 4.5 Globulin 3.7 Albumin/Globulin Ratio 1.2 Assessment & Plan - Date & Time Date: 02/06/18 (I have seen and examined the patient. I agree with the findings and plan of care as documented by Dr. Ospina. Patient with chest pain. History of hypertension. Hold BP med for now due to lower than expected BP reading. Restart once improved. Aspirin and Statin. Continue home meds for history of asthma. Duonebs prn. Monitor for acute changes.) Time: 11:07 Attending/Attestation - Attestation I have personally seen and examined this patient.: Yes I have fully participated in the care of the patient.: Yes I have reviewed all pertinent clinical information: Yes
[2018-02-06] MEDS ORDERED: Albuterol-Ipratrop 3 mg / 0.5 (3 ml) UD INH PRN (06:23)
[2018-02-06] MEDS ORDERED: Budesonide 0.25 mg/2 ml Inhal Susp UD INH SCH ×2 (08:00→19:00)
[2018-02-06 08:14] VITALS: O2SAT 97
--- NOTE | 2018-02-06 09:43 | CP.PCM.CON ---
History of Present Illness - History of Present Illness History of Present Illness: The patient is a 52 year old obese woman with sleep apnea and copd. Pt has had multiple admissions for chest pain her and at [facility]. The pt now reports constant chest pain. Worse in certain portions, relentless, and better if she presses a pillow under her breast. Motion did not help. ECG is normal, tni normal. pt claims she has had several stress tests in the past. Review of Systems - Review of Systems All systems: reviewed and no additional remarkable complaints except (as abov.e) Past Patient History - Infectious Disease Hx of Infectious Diseases: None - Past Medical History & Family History Past Medical History?: Yes - Past Social History Smoking Status: Never Smoked - CARDIAC Hx Hypertension: Yes Hx Peripheral Edema: Yes - PULMONARY Hx Asthma: Yes Hx Chronic Obstructive Pulmonary Disease (COPD): Yes Hx Pneumonia: Yes (2016) Hx Sleep Apnea: Yes (on CPAP) - NEUROLOGICAL Hx Neurological Disorder: No - HEENT Hx HEENT Problems: No - RENAL Hx Chronic Kidney Disease: No - ENDOCRINE/METABOLIC Hx Endocrine Disorders: No - HEMATOLOGICAL/ONCOLOGICAL Hx Blood Disorders: No - INTEGUMENTARY Hx Dermatological Problems: No - MUSCULOSKELETAL/RHEUMATOLOGICAL Hx Arthritis: Yes - GASTROINTESTINAL Hx Gastrointestinal Disorders: No Other/Comment: HERNIA REPAIR 28 years ago - GENITOURINARY/GYNECOLOGICAL Hx Genitourinary Disorders: No - PSYCHIATRIC Hx Anxiety: Yes Hx Bipolar Disorder: Yes Hx Depression: Yes Hx Substance Use: No - SURGICAL HISTORY Hx Surgeries: Yes Hx Section: Yes (x5) Hx Herniorrhaphy: Yes (28 years ago) - ANESTHESIA Hx Anesthesia: Yes Hx Anesthesia Reactions: No Hx Malignant Hyperthermia: No Meds Allergies/Adverse Reactions: Allergies Allergy/AdvReac Type Severity Reaction Status Date / Time No Known Allergies Allergy Verified 02/06/18 01:55 - Medications Medications: Current Medications Albuterol/Ipratropium (Duoneb 3 Mg/0.5 Mg (3 Ml) Ud) 3 ml INH RQ6 PRN PRN Reason: Shortness of Breath Aspirin (Ecotrin) 81 mg PO DAILY [facility] Budesonide (Pulmicort Respules) 0.25 mg INH RQ12 [facility] Enoxaparin Sodium (Lovenox) 40 mg SC DAILY [facility] Montelukast Sodium (Singulair) 10 mg PO HS [facility] Physical Exam - Constitutional Appears: No Acute Distress - Head Exam Head Exam: ATRAUMATIC - Eye Exam Eye Exam: EOMI - ENT Exam ENT Exam: Mucous Membranes Moist - Neck Exam Neck exam: Positive for: Normal Inspection - Respiratory Exam Respiratory Exam: Clear to Auscultation Bilateral - Cardiovascular Exam Cardiovascular Exam: REGULAR RHYTHM - GI/Abdominal Exam GI & Abdominal Exam: Normal Bowel Sounds - Extremities Exam Extremities exam: Positive for: normal inspection - Back Exam Back exam: NORMAL INSPECTION - Neurological Exam Neurological exam: Alert, Altered, Oriented x3, Reflexes Normal - Psychiatric Exam Psychiatric exam: Normal Affect - Skin Skin Exam: Normal Color (pressing on her left lower ribs and sternum reproduces chest pain) Results - Vital Signs Recent Vital Signs: Last Vital Signs Temp 98 F 02/06/18 08:00 Pulse 64 02/06/18 08:00 Resp 20 02/06/18 08:00 BP 108/56 L 02/06/18 08:00 Pulse Ox 97 02/06/18 08:00 - Labs Result Diagrams: 02/06/18 02:59 02/06/18 02:59 Labs: Laboratory Results - last 24 hr 02/06/18 02/06/18 02:59 02:59 WBC 6.3 RBC 4.67 Hgb 13.2 Hct 39.6 MCV 84.9 MCH 28.3 MCHC 33.3 RDW 14.0 Plt Count 250 MPV 9.6 Neut % (Auto) 47.8 L Lymph % (Auto) 39.2 [place] % (Auto) 6.9 Eos % (Auto) 5.1 H Baso % (Auto) 1.0 Neut # (Auto) 3.0 Lymph # (Auto) 2.5 [place] # (Auto) 0.4 Eos # (Auto) 0.3 Baso # (Auto) 0.1 Sodium 144 Potassium 4.1 Chloride 106 Carbon Dioxide 28 Anion Gap 14 BUN 14 Creatinine 0.7 Est GFR ( Amer) > 60 Est GFR (Non-Af Amer) > 60 Random Glucose 101 Calcium 9.4 Total Bilirubin 0.6 AST 24 ALT 33 Alkaline Phosphatase 71 Troponin I < 0.0120 NT-Pro-B Natriuret Pep 46.7 Total Protein 8.2 Albumin 4.5 Globulin 3.7 Albumin/Globulin Ratio 1.2 Assessment & Plan - Assessment and Plan (Free Text) Assessment: 1. Chest pain is non anginal: costochondritis: it is refractory to nsaids, and a short course of high intensity oral steroids, tapering doses, should be consider ed.
[2018-02-06] MEDS ORDERED: Enoxaparin 40 mg Syringe SC SCH (10:00)
--- NOTE | 2018-02-06 10:42 | RAD ---
Date of service: 02/06/2018 HISTORY: Chest pain COMPARISON: 01/01/2018. FINDINGS: LUNGS: The lungs are well inflated and clear. PLEURA: No significant pleural effusion identified, no pneumothorax apparent. CARDIOVASCULAR: Normal. OSSEOUS STRUCTURES: No significant abnormalities. VISUALIZED UPPER ABDOMEN: Normal. OTHER FINDINGS: None. IMPRESSION: No active pulmonary disease.
[2018-02-06 12:18] LABS: CK-MB 0.63 ng/mL (0.0-3.38)
[2018-02-06] MEDS ORDERED: Mometasone 220 mcg/puff-14 puff Inh INH SCH ×2 (13:30→20:00)
--- NOTE | 2018-02-06 14:00 | CP.PCM.PN ---
Subjective - Date & Time of Evaluation Date of Evaluation: 02/06/18 Time of Evaluation: 09:50 - Subjective Subjective: PGY-[address] Dennis Patient is seen and examined at bedside. Patient is currently in no acute distress. Patient continues to experiencing chest pain, as well as headache and blurry vision. 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 Patient states she is been dealing with stress in the family lately, which has been keeping her very worried. Patient denies fever, chills, nausea, vomiting, diarrhea, constipation, leg swelling or dysuria. Objective - Vital Signs/Intake and Output Vital Signs (last 24 hours): Temp Pulse Resp BP Pulse Ox 98 F 67 20 108/56 L 97 02/06/18 08:00 02/06/18 13:03 02/06/18 08:00 02/06/18 08:00 02/06/18 13:03 - Medications Medications: Current Medications Aspirin (Ecotrin) 81 mg PO DAILY [facility] Budesonide (Pulmicort Respules) 0.25 mg INH RQ12 [facility] Enoxaparin Sodium (Lovenox) 40 mg SC DAILY [facility] Last Admin: 02/06/18 11:00 Dose: 40 mg Ketorolac Tromethamine (Toradol) 30 mg IVP Q6 PRN PRN Reason: Pain, severe (8-10) Stop: 02/08/18 12:01 Last Admin: 02/06/18 11:51 Dose: 30 mg Mometasone Furoate (Asmanex Twisthaler 220 Mcg) 1 puff INH BID [facility] Montelukast Sodium (Singulair) 10 mg PO HS [facility] Pantoprazole Sodium (Protonix Ec Tab) 40 mg PO DAILY [facility] Prednisone (Prednisone Tab) 40 mg PO DAILY [facility] Stop: 02/10/18 10:01 Last Admin: 02/06/18 11:07 Dose: 40 mg Rosuvastatin Calcium (Crestor) 5 mg PO HS [facility] Tiotropium [place] (Spiriva) 18 mcg INH RQ24 [facility] - Labs Labs: 02/06/18 02:59 02/06/18 02:59 - Constitutional Appears: Non-toxic, No Acute Distress - Head Exam Head Exam: ATRAUMATIC, NORMAL INSPECTION, NORMOCEPHALIC - Eye Exam Eye Exam: EOMI, Normal appearance - ENT Exam ENT Exam: Mucous Membranes Moist, Normal Exam - Neck Exam Neck Exam: Full ROM, Normal Inspection - Respiratory Exam Respiratory Exam: Clear to Ausculation Bilateral, NORMAL BREATHING PATTERN. absent: Accessory Muscle Use, Wheezes, Respiratory Distress - Cardiovascular Exam Cardiovascular Exam: REGULAR RHYTHM, +S1, +S2 Additional comments: chest pain on palpation - GI/Abdominal Exam GI & Abdominal Exam: Soft, Normal Bowel Sounds. absent: Distended, Guarding, Tenderness - Extremities Exam Extremities Exam: Full ROM, Normal Inspection. absent: Calf Tenderness, Ten derness Additional comments: nonpitting edema bilaterally - Back Exam Back Exam: Full ROM, NORMAL INSPECTION - Neurological Exam Neurological Exam: Alert, Awake, Oriented x3 - Psychiatric Exam Psychiatric exam: Normal Affect, Normal Mood - Skin Skin Exam: Dry, Intact, Normal Color, Warm Assessment and Plan - Assessment and Plan (Free Text) Plan: Chest pain, r/o ACS, possible costochondritis, possible COPD exarcebation -Stable, afebrile at 98 F -Continue on telemetry -Initial troponin is negative x 2, last troponin to be collected at 17:30 pending - F/U results -Series EKG -previous admission EKG 12/31 - sinus rhythm with 1st degree block, nonspecific ST abnormalities - first EKG on admission - Sinus rhythm with 1st degree block - EKG @ 09:00 - sinus rhythm with 1st degree block - follow up third EKG - to be done at 15:00 -- f/u results -Chest Xray 02/06 - no significant pleural effusion, no pneumothorax, clear lungs and well inflated, no active disease detected compared chest xray 12/31 from previous admission - no interval acute cardiopulmonary disease -Echocardiogram ordered - follow up official report -Cardiology on consult, Dr Reagan, help appreciated - nonaginal chest pain - costochondritis - refractory to nsaids, short course of high intensity oral steroids, tapering dose should be considered. - F/U am labs, vitals -Meds: -Continue Aspirin 81mg PO daily - Prednisone 40 mg PO daily 1/5 doses given - Toradol 30 mg IVP Q6 PRN Hypertension -BP 108/56 -Will hold home BP meds - recheck BP Asthma/COPD - Discontinued Duonebs Q6H prn - Start Mometasone (Asmanex) 1 puff 220mcg INH BID - Continue Pulmicort 0.25mg Q12H, - Continue Singulair 10mg PO daily - Start Spiriva 18mcg Inh Q daily - Prednisone 40 mg PO daily 1/5 doses given - F/u Am labs, vitals VEL - CPAP ordered for tonight. CPAP pressure at 4, titrate as per respiratory recs Hyperlipidemia -Continue Crestor 5mg PO HS GI/DVT ppx: -Protonix 40mg PO daily -Lovenox 40mg SC daily - Heart healthy diet - f/u pastoral care - help is appreciated Plan discussed with Dr Sonny Dalye, PGY-1
[2018-02-06 16:08] VITALS: BP 147/73; RESP 18; TEMP 98.2
[2018-02-06 16:35] VITALS: PULSE 79
[2018-02-06 18:11] LABS: CK-MB 0.54 ng/mL (0.0-3.38)
[2018-02-07] MEDS ORDERED: Tiotropium 18 mcg Cap For Inhalation INH SCH (08:00)
[2018-02-07] MEDS ORDERED: Pantoprazole 40 mg EC Tab PO SCH (10:00)
== END 2018-02-06 20:10 | disposition designated cancer center or children's hospital (05) ==
LOC: SUPCPDRO 01:47 → C.ER 01:47 → C.9E 04:22 → C.5S 05:46
PROVIDERS: ADMIT Family Medicine; ATTEND Family Medicine
DX: M94.0 Chondrocostal junction syndrome [Tietze] (principal); E66.9 Obesity, unspecified; E78.5 Hyperlipidemia, unspecified; F31.9 Bipolar disorder, unspecified; G47.33 Obstructive sleep apnea (adult) (pediatric); I10 Essential (primary) hypertension; J44.9 Chronic obstructive pulmonary disease, unspecified; Z80.1 Family history of malignant neoplasm of trachea, bronchus and lung
CPT/HCPCS: 36415; 71045; 80053; 83880; 84484; 85025; 93306; G0378; J1650; J1885

== ENCOUNTER 2018-02-10 18:03 | Inpatient (IN) | payer OTHER ==
[2018-02-10 18:04] VITALS: BMI 52.8
[2018-02-10] MEDS ORDERED: Nitroglycerin 2% Ointment Foilpak UD TOP STA (18:59)
--- NOTE | 2018-02-10 19:11 | C.PDOC ---
History Of Present Illness 52 year old female with PMHx of sleep apnea, HTN presents to the ED c/o elevated blood pressure and dizziness. Patient reports she takes her amlodipine and lozartan in the morning but instead of taking amlodipine 0.1 TID she takes 0.3 mg in the morning for her own convenience. Patient drinks 2-4 liters of free water a day. Patient denies any significant weight loss or weight gain, her maximum weight was 305 pounds. Patient sleeps at night with her sleep apnea mask. Patient denies fever, chills, nausea, vomit, diarrhea, CP, palpitations, SOB, weakness, numbness. Time Seen by Provider: 02/10/18 18:31 Chief Complaint (Nursing): Dizziness/Lightheaded History Per: Patient History/Exam Limitations: no limitations Onset/Duration Of Symptoms: Days Current Symptoms Are (Timing): Still Present Associated Symptoms Preceding Syncopal Episode: No Predromal Symptoms (Sudden Onset) Seizure Or Post-ictal Symptoms: None Possible Causative Factor(s): Diurectics Fall Associated With With Symptoms: No Severity: None Recent travel outside of the [place]: No Additional History Per: Patient Past Medical History Reviewed: Historical Data, Nursing Documentation, Vital Signs Vital Signs: Last Vital Signs Temp 98.6 F 02/10/18 18:09 Pulse 77 02/10/18 18:09 Resp 20 02/10/18 18:09 BP 192/104 H 02/10/18 18:09 Pulse Ox 96 02/10/18 18:09 - Medical History PMH: Anxiety, Arthritis, Asthma, Bipolar Disorder, COPD, Depression, HTN, Peripheral Edema, Pneumonia (2016), Sleep Apnea (on CPAP) Denies: Chronic Kidney Disease Surgical History: Hernia Repair, Family History: States: Unknown Family Hx - Social History Hx Tobacco Use: No Hx Alcohol Use: No Hx Substance Use: No - Immunization History Hx Tetanus Toxoid Vaccination: No Hx Influenza Vaccination: No Hx Pneumococcal Vaccination: No Review Of Systems Constitutional: Negative for: Fever, Chills Cardiovascular: Positive for: Chest Pain. Negative for: Palpitations Respiratory: Negative for: Shortness of Breath Gastrointestinal: Negative for: Nausea, Vomiting, Abdominal Pain Skin: Negative for: Rash Neurological: Positive for: Dizziness. Negative for: Weakness, Numbness, Headache Physical Exam - Physical Exam Appears: Non-toxic, No Acute Distress, Other (morbidly obese) Skin: Normal Color, Warm, Dry Head: Atraumatic, Normacephalic Eye(s): bilateral: Normal Inspection Oral Mucosa: Moist Throat: Other (small oropharynx) Neck: Normal ROM, Supple Chest: Symmetrical Cardiovascular: Rhythm Regular (NSR with S3), JVD Respiratory: Rales (at the bases Bilaterally), No Rhonchi, No Wheezing Gastrointestinal/Abdominal: Soft, No Distention, No Guarding, No Rebound, Other (globus, obese) Extremity: Normal ROM, No Tenderness, Pedal Edema (mid ), Capillary Refill (< 2 seconds) Pulses: Left Dorsalis Pedis: Normal, Right Dorsalis Pedis: Normal Neurological/Psych: Oriented x3, Normal Speech, Normal Cognition Gait: Steady ED Course And Treatment - Laboratory Results Result Diagrams: 02/10/18 19:44 02/10/18 19:44 Lab Interpretation: Normal (trop/bnp neg) ECG: Interpreted By Mn ECG Rhythm: Sinus Rhythm ECG Interpretation: Normal Rate From EC (BPM) O2 Sat by Pulse Oximetry: 96 (ON RA) Pulse Ox Interpretation: Normal - Radiology CXR: Interpreted by Mn CXR Interpretation: Yes: Other (+ chf) Reevaluation Time: 20:45 Reassessment Condition: Improved - Physician Consult Information Outcome Of Conversation: 2044: d/w Dr. Vero Ortiz- Medicine, has admitted this pt recently Medical Decision Making Medical Decision Making: Uncontrolled HTN Amlodipine 10 mg QD Losartan 100 mg PO QD Clonidine taken 0.3 mg ALL IN THE AM FOR PT CONVENIENCE so rebound HTN in afternoon is higher risk Consider other QD meds or reinforcing TID Clonidine or Hydralazine. CHF/Fluid overload normal Card Echo 02/23 +JVD, + rales, + leg edema c/w fluid overload overdrinking her QD Lasix without fluid balance insight. today's ED ACCURATE PRE-DIURESIS BODY WEIGHT 298# continue diuresis to euvolemia and target daily weights and continued moderate weight loss Disposition Doctor Will See Patient In The: Hospital Counseled Patient/Family Regarding: Studies Performed, Diagnosis - Disposition Disposition: HOSPITALIZED Disposition Time: 20:49 Condition: GOOD - Clinical Impression Clinical Impression: Uncontrolled hypertension, Body fluid retention - Scribe Statement The provider has reviewed the documentation as recorded by the Scribe Satnam Yuan All medical record entries made by the Scribe were at my direction and personally dictated by me. I have reviewed the chart and agree that the record accurately reflects my personal performance of the history, physical exam, medical decision making, and the department course for this patient. I have also personally directed, reviewed, and agree with the discharge instructions and disposition.
--- NOTE | 2018-02-10 19:18 | RAD ---
Date of service: 02/10/2018 PROCEDURE: CHEST RADIOGRAPH, 1 VIEW HISTORY: SOB COMPARISON: Frontal chest radiograph 02/06/2018. FINDINGS: LUNGS: Clear. PLEURA: No pneumothorax or pleural fluid seen. CARDIOVASCULAR: Normal. OSSEOUS STRUCTURES: No significant abnormalities. VISUALIZED UPPER ABDOMEN: Normal. OTHER FINDINGS: None. IMPRESSION: No interval acute cardiopulmonary disease appreciated.
[2018-02-10] MEDS ORDERED: Nitroglycerin 2% Ointment Foilpak UD TOP ONE (19:43)
[2018-02-10 19:57] LABS: BASO # 0.1 K/uL (0.0-0.2); BASO % 1.9 % (0.0-2.0); EOS # 0.4 K/uL (0.0-0.7); EOS % 5.7 % (0.0-4.0); HEMOGLOBIN 12.5 g/dL (11.0-16.0); LYMPH # 2.2 K/uL (1.0-4.3); LYMPH % 33.2 % (20.0-40.0); MEAN CELL VOLUME 84.1 fL (81.0-99.0); MEAN CORPUSCULAR HEMOGLOBIN 28.1 pg (27.0-31.0); MEAN CORPUSCULAR HGB CONC 33.5 g/dL (33.0-37.0); MEAN PLATELET VOLUME 8.7 fL (7.2-11.7); MONO # 0.4 K/uL (0.0-0.8); MONO % 6.3 % (0.0-10.0); NEUT # 3.5 K/uL (1.8-7.0); NEUT % 52.9 % (50.0-75.0); NRBC % 0.1 % (0.0-2.0); RBC 4.43 Mil/uL (3.80-5.20); RED CELL DISTRIBUTION WIDTH 13.8 % (11.5-14.5); WHITE BLOOD COUNT 6.6 K/uL (4.8-10.8)
[2018-02-10 20:01] LABS: ALB/GLOB RATIO 1.2 (1.0-2.1); ALT/SGPT 36 U/L (9-52); AST/SGOT 27 U/L (14-36); BLOOD UREA NITROGEN 16 mg/dL (7-17); CALCIUM 9.3 mg/dl (8.6-10.4); GFR NON-AFRICAN AMERICAN > 60
[2018-02-10 20:11] LABS: B-TYPE NATRIURETIC PEPTIDE 92.8 pg/mL (0-900)
[2018-02-10 20:37] LABS: SQUAMOUS EPITHIAL 4 /hpf (0-5); URINE BACTERIA FEW (<OCC); URINE BILIRUBIN NEGATIVE (NEGATIVE); URINE BLOOD NEGATIVE (NEGATIVE); URINE CLARITY Clear (Clear); URINE COLOR Yellow (YELLOW); URINE GLUCOSE (UA) NORMAL (Normal); URINE LEUKOCYTE ESTERASE 3+ Leu/uL (Negative); URINE PROTEIN NEGATIVE (NEGATIVE); URINE UROBILINOGEN NORMAL mg/dL (0.2-1.0)
--- NOTE | 2018-02-10 23:11 | CP.PCM.HP ---
History of Present Illness - History of Present Illness History of Present Illness: 52-year-old female patient with PMH of COPD, HTN, peripheral edema, sleep apnea, bipolar disorder comes to the ED with complaints of dizziness and elevated blood pressure. Patient normally takes amlodipine and losartan in the morning for HTN, her amlodipine doses 0.1 mg 3 times daily. Patient states that for convenience she takes 0.3 mg in the morning instead of 0.1 mg 3 times daily. Patient denies any weight loss or weight gain. At night while sleeping she uses a sleep apnea mask. Patient denies any other complaints, no fever, no chills, no nausea no vomiting no chest pain at this time. Present on Admission - Present on Admission Any Indicators Present on Admission: No Past Patient History - Infectious Disease Hx of Infectious Diseases: None - Past Medical History & Family History Past Medical History?: Yes - Past Social History Smoking Status: Never Smoked - CARDIAC Hx Hypertension: Yes Hx Peripheral Edema: Yes - PULMONARY Hx Asthma: Yes Hx Chronic Obstructive Pulmonary Disease (COPD): Yes Hx Pneumonia: Yes (2016) Hx Sleep Apnea: Yes (on CPAP) - NEUROLOGICAL Hx Neurological Disorder: No - HEENT Hx HEENT Problems: No - RENAL Hx Chronic Kidney Disease: No - ENDOCRINE/METABOLIC Hx Endocrine Disorders: No - HEMATOLOGICAL/ONCOLOGICAL Hx Blood Disorders: No - INTEGUMENTARY Hx Dermatological Problems: No - MUSCULOSKELETAL/RHEUMATOLOGICAL Hx Arthritis: Yes - GASTROINTESTINAL Hx Gastrointestinal Disorders: No Other/Comment: HERNIA REPAIR 28 years ago - GENITOURINARY/GYNECOLOGICAL Hx Genitourinary Disorders: No - PSYCHIATRIC Hx Anxiety: Yes Hx Bipolar Disorder: Yes Hx Depression: Yes Hx Substance Use: No - SURGICAL HISTORY Hx Surgeries: Yes Hx Section: Yes (x5) Hx Herniorrhaphy: Yes (28 years ago) - ANESTHESIA Hx Anesthesia: Yes Hx Anesthesia Reactions: No Hx Malignant Hyperthermia: No Meds Home Medications: Home Medication List Medication Instructions Recorded Confirmed Type Furosemide [Lasix] 40 mg PO DAILY 30 Days tab 02/14/18 Rx traMADol [Ultram] 50 mg PO Q8 #20 tab 02/14/18 Rx Allergies/Adverse Reactions: Allergies Allergy/AdvReac Type Severity Reaction Status Date / Time No Known Allergies Allergy Verified 02/10/18 18:13 Physical Exam - Constitutional Appears: Non-toxic, No Acute Distress - Head Exam Head Exam: ATRAUMATIC - Eye Exam Eye Exam: EOMI, Normal appearance - ENT Exam ENT Exam: Mucous Membranes Moist, Normal Exam - Neck Exam Neck exam: Positive for: Normal Inspection. Negative for: Lymphadenopathy, Thyromegaly - Respiratory Exam Respiratory Exam: Decreased Breath Sounds - Cardiovascular Exam Cardiovascular Exam: +S1, +S2 - GI/Abdominal Exam GI & Abdominal Exam: Diminished Bowel Sounds - Rectal Exam Rectal Exam: Deferred Results - Vital Signs Recent Vital Signs: Last Vital Signs Temp 98.6 F 02/10/18 21:46 Pulse 79 02/10/18 21:46 Resp 18 02/10/18 21:46 BP 133/62 02/10/18 21:46 Pulse Ox 96 02/10/18 22:36 - Labs Result Diagrams: 02/12/18 10:32 02/14/18 13:35 Labs: Laboratory Results - last 24 hr 02/10/18 02/10/18 02/10/18 18:42 19:44 19:44 WBC 6.6 RBC 4.43 Hgb 12.5 Hct 37.2 MCV 84.1 MCH 28.1 MCHC 33.5 RDW 13.8 Plt Count 247 MPV 8.7 Neut % (Auto) 52.9 Lymph % (Auto) 33.2 [place] % (Auto) 6.3 Eos % (Auto) 5.7 H Baso % (Auto) 1.9 Neut # (Auto) 3.5 Lymph # (Auto) 2.2 [place] # (Auto) 0.4 Eos # (Auto) 0.4 Baso # (Auto) 0.1 Sodium 143 Potassium 4.2 Chloride 103 Carbon Dioxide 32 H Anion Gap 12 BUN 16 Creatinine 0.7 Est GFR ( Amer) > 60 Est GFR (Non-Af Amer) > 60 POC Glucose (mg/dL) 108 Random Glucose 103 Calcium 9.3 Total Bilirubin 0.5 AST 27 ALT 36 Alkaline Phosphatase 61 Troponin I < 0.0120 NT-Pro-B Natriuret Pep 92.8 Total Protein 7.4 Albumin 4.0 Globulin 3.4 Albumin/Globulin Ratio 1.2 Urine Color Urine Clarity Urine pH Ur Specific [place] Urine Protein Urine Glucose (UA) Urine Ketones Urine Blood Urine Nitrate Urine Bilirubin Urine Urobilinogen Ur Leukocyte Esterase Urine WBC (Auto) Urine RBC (Auto) Ur Squamous Epith Cells Urine Bacteria 02/10/18 20:26 WBC RBC Hgb Hct MCV MCH MCHC RDW Plt Count MPV Neut % (Auto) Lymph % (Auto) [place] % (Auto) Eos % (Auto) Baso % (Auto) Neut # (Auto) Lymph # (Auto) [place] # (Auto) Eos # (Auto) Baso # (Auto) Sodium Potassium Chloride Carbon Dioxide Anion Gap BUN Creatinine Est GFR ( Amer) Est GFR (Non-Af Amer) POC Glucose (mg/dL) Random Glucose Calcium Total Bilirubin AST ALT Alkaline Phosphatase Troponin I NT-Pro-B Natriuret Pep Total Protein Albumin Globulin Albumin/Globulin Ratio Urine Color Yellow Urine Clarity Clear Urine pH 6.0 Ur Specific [place] 1.015 Urine Protein Negative Urine Glucose (UA) Normal Urine Ketones Negative Urine Blood Negative Urine Nitrate Negative Urine Bilirubin Negative Urine Urobilinogen Normal Ur Leukocyte Esterase 3+ H Urine WBC (Auto) 36 H Urine RBC (Auto) 1 Ur Squamous Epith Cells 4 Urine Bacteria Few H Assessment & Plan (1) Abnormal EKG Status: Acute (2) Acute asthma exacerbation Status: Acute (3) Allergic asthma Status: Acute (4) Allergic asthma with acute exacerbation Status: Acute (5) Allergic reaction Status: Acute (6) Anxiety Status: Acute (7) Arthralgia of knee Status: Acute (8) Asthma Status: Acute (9) Asthma exacerbation Status: Acute (10) Rosa cyst Status: Acute (11) Body fluid retention Status: Acute (12) COPD exacerbation Status: Acute (13) Chest pain Status: Acute (14) Chest pain Status: Acute (15) Chest wall pain Status: Acute (16) Chronic leg pain Status: Acute (17) Dyspnea Status: Acute (18) Foot pain, right Status: Acute (19) HTN (hypertension) Status: Acute (20) Knee pain, right Status: Acute (21) Morbid obesity Status: Acute (22) Morbid obesity due to excess calories Status: Acute (23) VEL (obstructive sleep apnea) Status: Acute (24) 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 (25) Paresthesia and pain of extremity Status: Acute (26) Prophylactic measure Status: Acute (27) Skin irritation Status: Acute (28) Skin rash Status: Acute (29) Syncope Status: Acute (30) Synovial cyst of popliteal space [Rosa], right knee Status: Acute (31) Uncontrolled hypertension Status: Acute (32) Asthma Status: Chronic (33) Costochondral chest pain Status: Resolved (34) Shortness of breath Status: Resolved - Assessment and Plan (Free Text) Plan: Patient seen and examined at bedside Labs and meds reviewed Cardio consult Blood pressure control Meds as advised Norvasc Cozaar Nebulizers Statins DVT/GI prophylaxis
[2018-02-11 07:41] LABS: CK-MB 0.44 ng/mL (0.0-3.38)
[2018-02-11] MEDS ORDERED: Fluticasone Nasal 50 mcg/Spray NS SCH (10:00)
[2018-02-11] MEDS: Pantoprazole 20 mg EC Tab PO SCH (10:41)
[2018-02-11] MEDS: Enoxaparin 40 mg Syringe SC SCH (10:41)
[2018-02-11] MEDS: Fluticasone Nasal 50 mcg/Spray NS SCH (12:29)
--- NOTE | 2018-02-11 15:40 | CP.PCM.PN ---
Subjective - Date & Time of Evaluation Date of Evaluation: 02/11/18 Time of Evaluation: 12:30 - Subjective Subjective: clinically same Objective - Vital Signs/Intake and Output Vital Signs (last 24 hours): Temp Pulse Resp BP Pulse Ox 98.3 F 74 26 H 145/65 96 02/11/18 06:46 02/11/18 06:46 02/11/18 10:53 02/11/18 10:42 02/11/18 10:53 Intake and Output: 02/11/18 02/11/18 06:59 18:59 Intake Total 510 Output Total 1999 Balance -1490 - Medications Medications: Current Medications Albuterol/Ipratropium (Duoneb 3 Mg/0.5 Mg (3 Ml) Ud) 3 ml INH RQ6 PRN PRN Reason: Shortness of Breath Amlodipine Besylate (Norvasc) 10 mg PO DAILY [facility] Last Admin: 02/11/18 12:13 Dose: 10 mg Aspirin (Aspirin Chewable) 81 mg PO DAILY [facility] Last Admin: 02/11/18 10:41 Dose: 81 mg Budesonide (Pulmicort Respules) 0.25 mg INH RQ12 [facility] Diphenhydramine HCl (Benadryl) 50 mg PO HS ONE Stop: 02/11/18 20:01 Enoxaparin Sodium (Lovenox) 40 mg SC DAILY [facility] Last Admin: 02/11/18 10:41 Dose: 40 mg Fluticasone Propionate (Flonase) 0 spr NS DAILY [facility] Last Admin: 02/11/18 12:29 Dose: 1 pump Furosemide (Lasix) 40 mg IVP BID [facility] Last Admin: 02/11/18 10:42 Dose: 40 mg Losartan Potassium (Cozaar) 50 mg PO DAILY [facility] Last Admin: 02/11/18 10:41 Dose: 50 mg Montelukast Sodium (Singulair) 10 mg PO DAILY [facility] Last Admin: 02/11/18 10:41 Dose: 10 mg Nitroglycerin (Nitrostat Sl Tab) 0.4 mg SL PRN PRN PRN Reason: Shortness of Breath Pantoprazole Sodium (Protonix Ec Tab) 20 mg PO DAILY [facility] Last Admin: 02/11/18 10:41 Dose: 20 mg Rosuvastatin Calcium (Crestor) 10 mg PO HS [facility] Last Admin: 02/10/18 23:25 Dose: 10 mg Tramadol HCl (Ultram) 50 mg PO Q8 PRN PRN Reason: Pain, moderate (4-7) - Labs Labs: 02/10/18 19:44 02/10/18 19:44 - Constitutional Appears: Well - Head Exam Head Exam: ATRAUMATIC, NORMAL INSPECTION, NORMOCEPHALIC - Eye Exam Eye Exam: EOMI, Normal appearance, PERRL Pupil Exam: NORMAL ACCOMODATION, PERRL - ENT Exam ENT Exam: Mucous Membranes Moist, Normal Exam - Neck Exam Neck Exam: Full ROM, Normal Inspection. absent: Lymphadenopathy - Respiratory Exam Respiratory Exam: Decreased Breath Sounds - Cardiovascular Exam Cardiovascular Exam: REGULAR RHYTHM, +S1, +S2 - GI/Abdominal Exam GI & Abdominal Exam: Soft, Diminished Bowel Sounds - Rectal Exam Rectal Exam: Deferred Assessment and Plan (1) Abnormal EKG Status: Acute (2) Acute asthma exacerbation Status: Acute (3) Allergic asthma Status: Acute (4) Allergic asthma with acute exacerbation Status: Acute (5) Allergic reaction Status: Acute (6) Anxiety Status: Acute (7) Arthralgia of knee Status: Acute (8) Asthma Status: Acute (9) Asthma exacerbation Status: Acute (10) Rosa cyst Status: Acute (11) Body fluid retention Status: Acute (12) COPD exacerbation Status: Acute (13) Chest pain Status: Acute (14) Chest pain Status: Acute (15) Chest wall pain Status: Acute (16) Chronic leg pain Status: Acute (17) Dyspnea Status: Acute (18) Foot pain, right Status: Acute (19) HTN (hypertension) Status: Acute (20) Knee pain, right Status: Acute (21) Morbid obesity Status: Acute (22) Morbid obesity due to excess calories Status: Acute (23) VEL (obstructive sleep apnea) Status: Acute (24) 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
[2018-02-11 16:45] LABS: CK-MB 0.46 ng/mL (0.0-3.38)
--- NOTE | 2018-02-11 18:48 | CP.PCM.CON ---
History of Present Illness - History of Present Illness History of Present Illness: CC: Headache HPI: 52 year old female with following chronic medical problems 1. HTN labile and uncontrolled 2. Diastolic CHF chronic and stable on lasix 3. ASHD chronic mild diffuse denies angina. Admitted to ICU for accelerated HTN Review of Systems - Review of Systems All systems: reviewed and no additional remarkable complaints except Review of Systems: +Anxiety +Shortness of breath Past Patient History - Infectious Disease Hx of Infectious Diseases: None - Past Medical History & Family History Past Medical History?: Yes - Past Social History Smoking Status: Never Smoked - CARDIAC Hx Cardiac Disorders: Yes Hx Hypertension: Yes Hx Peripheral Edema: Yes - PULMONARY Hx Asthma: Yes Hx Chronic Obstructive Pulmonary Disease (COPD): Yes Hx Pneumonia: Yes (2016) Hx Sleep Apnea: Yes (on CPAP) - NEUROLOGICAL Hx Neurological Disorder: No - HEENT Hx HEENT Problems: No - RENAL Hx Chronic Kidney Disease: No - ENDOCRINE/METABOLIC Hx Endocrine Disorders: No - HEMATOLOGICAL/ONCOLOGICAL Hx Blood Disorders: No - INTEGUMENTARY Hx Dermatological Problems: No - MUSCULOSKELETAL/RHEUMATOLOGICAL Hx Falls: No - GASTROINTESTINAL Hx Gastrointestinal Disorders: No Other/Comment: HERNIA REPAIR 28 years ago - GENITOURINARY/GYNECOLOGICAL Hx Genitourinary Disorders: No - PSYCHIATRIC Hx Substance Use: No - SURGICAL HISTORY Hx Surgeries: Yes Hx Section: Yes (x5) Hx Herniorrhaphy: Yes (28 years ago) - ANESTHESIA Hx Anesthesia: Yes Hx Anesthesia Reactions: No Hx Malignant Hyperthermia: No Has any member of the family had a problem w/ anesthesia?: No Meds Allergies/Adverse Reactions: Allergies Allergy/AdvReac Type Severity Reaction Status Date / Time No Known Allergies Allergy Verified 02/10/18 18:13 - Medications Medications: Current Medications Albuterol/Ipratropium (Duoneb 3 Mg/0.5 Mg (3 Ml) Ud) 3 ml INH RQ6 PRN PRN Reason: Shortness of Breath Amlodipine Besylate (Norvasc) 10 mg PO DAILY [facility] Last Admin: 02/11/18 12:13 Dose: 10 mg Aspirin (Aspirin Chewable) 81 mg PO DAILY [facility] Last Admin: 02/11/18 10:41 Dose: 81 mg Budesonide (Pulmicort Respules) 0.25 mg INH RQ12 [facility] Diphenhydramine HCl (Benadryl) 50 mg PO HS ONE Stop: 02/11/18 20:01 Enoxaparin Sodium (Lovenox) 40 mg SC DAILY [facility] Last Admin: 02/11/18 10:41 Dose: 40 mg Fluticasone Propionate (Flonase) 0 spr NS DAILY [facility] Last Admin: 02/11/18 12:29 Dose: 1 pump Furosemide (Lasix) 40 mg IVP BID [facility] Last Admin: 02/11/18 10:42 Dose: 40 mg Losartan Potassium (Cozaar) 50 mg PO DAILY [facility] Last Admin: 02/11/18 10:41 Dose: 50 mg Montelukast Sodium (Singulair) 10 mg PO DAILY [facility] Last Admin: 02/11/18 10:41 Dose: 10 mg Nitroglycerin (Nitrostat Sl Tab) 0.4 mg SL PRN PRN PRN Reason: Shortness of Breath Pantoprazole Sodium (Protonix Ec Tab) 20 mg PO DAILY [facility] Last Admin: 02/11/18 10:41 Dose: 20 mg Rosuvastatin Calcium (Crestor) 10 mg PO HS [facility] Last Admin: 02/10/18 23:25 Dose: 10 mg Tramadol HCl (Ultram) 50 mg PO Q8 PRN PRN Reason: Pain, moderate (4-7) Physical Exam - Constitutional Appears: Well, Non-toxic - Head Exam Head Exam: ATRAUMATIC, NORMAL INSPECTION - Eye Exam Eye Exam: PERRL. absent: Scleral icterus - ENT Exam ENT Exam: Mucous Membranes Moist, Normal External Ear Exam - Neck Exam Neck exam: Positive for: Full Rom. Negative for: Lymphadenopathy, Thyromegaly - Respiratory Exam Respiratory Exam: Decreased Breath Sounds (bases bilaterally ), Clear to Auscultation Bilateral, NORMAL BREATHING PATTERN - Cardiovascular Exam Cardiovascular Exam: REGULAR RHYTHM, RRR, +S1, +S2, +S4. absent: JVD - GI/Abdominal Exam GI & Abdominal Exam: Normal Bowel Sounds. absent: Organomegaly - Extremities Exam Extremities exam: Positive for: normal inspection. Negative for: pedal edema - Neurological Exam Neurological exam: CN II-XII Intact, Oriented x3 - Psychiatric Exam Psychiatric exam: Normal Affect, Normal Mood Results - Vital Signs Recent Vital Signs: Last Vital Signs Temp 98.3 F 02/11/18 06:46 Pulse 61 02/11/18 10:00 Resp 26 H 02/11/18 10:53 BP 145/65 02/11/18 10:42 Pulse Ox 96 02/11/18 10:53 - Labs Result Diagrams: 02/10/18 19:44 02/10/18 19:44 Labs: Laboratory Results - last 24 hr 02/10/18 02/10/18 02/10/18 18:42 19:44 19:44 WBC 6.6 RBC 4.43 Hgb 12.5 Hct 37.2 MCV 84.1 MCH 28.1 MCHC 33.5 RDW 13.8 Plt Count 247 MPV 8.7 Neut % (Auto) 52.9 Lymph % (Auto) 33.2 [place] % (Auto) 6.3 Eos % (Auto) 5.7 H Baso % (Auto) 1.9 Neut # (Auto) 3.5 Lymph # (Auto) 2.2 [place] # (Auto) 0.4 Eos # (Auto) 0.4 Baso # (Auto) 0.1 Sodium 143 Potassium 4.2 Chloride 103 Carbon Dioxide 32 H Anion Gap 12 BUN 16 Creatinine 0.7 Est GFR ( Amer) > 60 Est GFR (Non-Af Amer) > 60 POC Glucose (mg/dL) 108 Random Glucose 103 Calcium 9.3 Total Bilirubin 0.5 AST 27 ALT 36 Alkaline Phosphatase 61 Total Creatine Kinase CK-MB (Mass) Troponin I < 0.0120 NT-Pro-B Natriuret Pep 92.8 Total Protein 7.4 Albumin 4.0 Globulin 3.4 Albumin/Globulin Ratio 1.2 Urine Color Urine Clarity Urine pH Ur Specific [place] Urine Protein Urine Glucose (UA) Urine Ketones Urine Blood Urine Nitrate Urine Bilirubin Urine Urobilinogen Ur Leukocyte Esterase Urine WBC (Auto) Urine RBC (Auto) Ur Squamous Epith Cells Urine Bacteria 02/10/18 02/11/18 02/11/18 20:26 04:00 07:03 WBC RBC Hgb Hct MCV MCH MCHC RDW Plt Count MPV Neut % (Auto) Lymph % (Auto) [place] % (Auto) Eos % (Auto) Baso % (Auto) Neut # (Auto) Lymph # (Auto) [place] # (Auto) Eos # (Auto) Baso # (Auto) Sodium Potassium Chloride Carbon Dioxide Anion Gap BUN Creatinine Est GFR ( Amer) Est GFR (Non-Af Amer) POC Glucose (mg/dL) Random Glucose Calcium Total Bilirubin AST ALT Alkaline Phosphatase Total Creatine Kinase 57 CK-MB (Mass) 0.44 Troponin I < 0.0120 NT-Pro-B Natriuret Pep 66.0 Total Protein Albumin Globulin Albumin/Globulin Ratio Urine Color Yellow Urine Clarity Clear Urine pH 6.0 Ur Specific [place] 1.015 Urine Protein Negative Urine Glucose (UA) Normal Urine Ketones Negative Urine Blood Negative Urine Nitrate Negative Urine Bilirubin Negative Urine Urobilinogen Normal Ur Leukocyte Esterase 3+ H Urine WBC (Auto) 36 H Urine RBC (Auto) 1 Ur Squamous Epith Cells 4 Urine Bacteria Few H 02/11/18 16:18 WBC RBC Hgb Hct MCV MCH MCHC RDW Plt Count MPV Neut % (Auto) Lymph % (Auto) [place] % (Auto) Eos % (Auto) Baso % (Auto) Neut # (Auto) Lymph # (Auto) [place] # (Auto) Eos # (Auto) Baso # (Auto) Sodium Potassium Chloride Carbon Dioxide Anion Gap BUN Creatinine Est GFR ( Amer) Est GFR (Non-Af Amer) POC Glucose (mg/dL) Random Glucose Calcium Total Bilirubin AST ALT Alkaline Phosphatase Total Creatine Kinase 42 CK-MB (Mass) 0.46 Troponin I < 0.0120 NT-Pro-B Natriuret Pep Total Protein Albumin Globulin Albumin/Globulin Ratio Urine Color Urine Clarity Urine pH Ur Specific [place] Urine Protein Urine Glucose (UA) Urine Ketones Urine Blood Urine Nitrate Urine Bilirubin Urine Urobilinogen Ur Leukocyte Esterase Urine WBC (Auto) Urine RBC (Auto) Ur Squamous Epith Cells Urine Bacteria - EKG Data EKG Interpreted by: Myself EKG shows normal: Sinus rhythm Rate: Normal - Imaging and Cardiology Chest x-ray Additional comment: Pleural effusions Assessment & Plan - Assessment and Plan (Free Text) Assessment: 52 year old female with acute on chronic diastolic CHF diuresing with lasix, continue current dose Accelerated HTN likely excerbated by CHF, now stable when she is more euvolemic, continue losartan and amlodipine ASHD is chronic and stable, denies angina continue high dose statin - Date & Time Date: 02/11/18 Time: 18:52
[2018-02-11] MEDS: Budesonide 0.25 mg/2 ml Inhal Susp UD INH SCH (19:35)
--- NOTE | 2018-02-11 21:33 | CP.PCM.CON ---
History of Present Illness - History of Present Illness History of Present Illness: Pulmonary Consult, Covering Dr Alva The patient was Seen/interviewed and examined by me at the bedside, Medical records reviewed and Management issues were discussed and formulated with the house staff. Events reviewed 52 year old female with PMHx of sleep apnea, HTN Who presents to the ED c/o elevated blood pressure and dizziness. Patient reports she takes her amlodipine and lozartan in the morning but instead of rick ing amlodipine 0.1 TID she takes 0.3 mg in the morning for her own convenience. Patient denies any significant weight loss or weight gain, her maximum weight was 305 pounds. Patient sleeps at night with her sleep apnea mask. Comfortable, NAD Patient denies fever, chills, nausea, vomit, diarrhea, CP, palpitations, SOB, weakness, numbness. No signs of fluid overload on exam Will start Patient on CPAP 10/5 with FIO2 of 40% at HS 2200 to 0700 Review of Systems - Constitutional Constitutional: absent: Chills, Fever, Frequent Falls - Cardiovascular Cardiovascular: absent: Chest Pain, Chest Pain at Rest, Chest Pain with Activity, Claudication, Diaphoresis - Respiratory Respiratory: Cough, Dyspnea, Dyspnea on Exertion, Snoring. absent: Hemoptysis, Wheezing, Stridor - Gastrointestinal Gastrointestinal: Heartburn. absent: Abdominal Pain, Coffee Ground Emesis, Nausea, Vomiting Past Patient History - Infectious Disease Hx of Infectious Diseases: None - Past Medical History & Family History Past Medical History?: Yes - Past Social History Smoking Status: Never Smoked - CARDIAC Hx Cardiac Disorders: Yes Hx Hypertension: Yes Hx Peripheral Edema: Yes - PULMONARY Hx Asthma: Yes Hx Chronic Obstructive Pulmonary Disease (COPD): Yes Hx Pneumonia: Yes (2016) Hx Sleep Apnea: Yes (on CPAP) - NEUROLOGICAL Hx Neurological Disorder: No - HEENT Hx HEENT Problems: No - RENAL Hx Chronic Kidney Disease: No - ENDOCRINE/METABOLIC Hx Endocrine Disorders: No - HEMATOLOGICAL/ONCOLOGICAL Hx Blood Disorders: No - INTEGUMENTARY Hx Dermatological Problems: No - MUSCULOSKELETAL/RHEUMATOLOGICAL Hx Falls: No - GASTROINTESTINAL Hx Gastrointestinal Disorders: No Other/Comment: HERNIA REPAIR 28 years ago - GENITOURINARY/GYNECOLOGICAL Hx Genitourinary Disorders: No - PSYCHIATRIC Hx Substance Use: No - SURGICAL HISTORY Hx Surgeries: Yes Hx Section: Yes (x5) Hx Herniorrhaphy: Yes (28 years ago) - ANESTHESIA Hx Anesthesia: Yes Hx Anesthesia Reactions: No Hx Malignant Hyperthermia: No Has any member of the family had a problem w/ anesthesia?: No Meds Home Medications: Home Medication List Medication Instructions Recorded Confirmed Type Furosemide [Lasix] 40 mg PO DAILY 30 Days tab 02/14/18 Rx traMADol [Ultram] 50 mg PO Q8 #20 tab 02/14/18 Rx Allergies/Adverse Reactions: Allergies Allergy/AdvReac Type Severity Reaction Status Date / Time No Known Allergies Allergy Verified 02/10/18 18:13 - Medications Medications: Current Medications Albuterol/Ipratropium (Duoneb 3 Mg/0.5 Mg (3 Ml) Ud) 3 ml INH RQ6 PRN PRN Reason: Shortness of Breath Amlodipine Besylate (Norvasc) 10 mg PO DAILY [facility] Last Admin: 02/11/18 12:13 Dose: 10 mg Aspirin (Aspirin Chewable) 81 mg PO DAILY [facility] Last Admin: 02/11/18 10:41 Dose: 81 mg Budesonide (Pulmicort Respules) 0.25 mg INH RQ12 [facility] Last Admin: 02/11/18 19:35 Dose: Not Given Enoxaparin Sodium (Lovenox) 40 mg SC DAILY [facility] Last Admin: 02/11/18 10:41 Dose: 40 mg Fluticasone Propionate (Flonase) 0 spr NS DAILY [facility] Last Admin: 02/11/18 12:29 Dose: 1 pump Furosemide (Lasix) 40 mg IVP BID [facility] Last Admin: 02/11/18 17:00 Dose: Not Given Losartan Potassium (Cozaar) 50 mg PO DAILY [facility] Last Admin: 02/11/18 10:41 Dose: 50 mg Montelukast Sodium (Singulair) 10 mg PO DAILY [facility] Last Admin: 02/11/18 10:41 Dose: 10 mg Nitroglycerin (Nitrostat Sl Tab) 0.4 mg SL PRN PRN PRN Reason: Shortness of Breath Pantoprazole Sodium (Protonix Ec Tab) 20 mg PO DAILY [facility] Last Admin: 02/11/18 10:41 Dose: 20 mg Rosuvastatin Calcium (Crestor) 10 mg PO HS [facility] Last Admin: 02/10/18 23:25 Dose: 10 mg Tramadol HCl (Ultram) 50 mg PO Q8 PRN PRN Reason: Pain, moderate (4-7) Last Admin: 02/11/18 20:02 Dose: 50 mg Physical Exam - Head Exam Head Exam: ATRAUMATIC, NORMAL INSPECTION - Eye Exam Eye Exam: EOMI, Normal appearance, PERRL Pupil Exam: NORMAL ACCOMODATION, PERRL - ENT Exam ENT Exam: Mucous Membranes Moist, Normal Exam - Neck Exam Neck exam: Positive for: Normal Inspection - Respiratory Exam Respiratory Exam: Decreased Breath Sounds, Rhonchi. absent: Accessory Muscle Use, Chest Wall Tenderness, Rales, Wheezes - Cardiovascular Exam Cardiovascular Exam: REGULAR RHYTHM - GI/Abdominal Exam GI & Abdominal Exam: Distended, Normal Bowel Sounds, Soft. absent: Firm, Guarding, Hernia, Tenderness - Extremities Exam Extremities exam: Positive for: normal inspection Results - Vital Signs Recent Vital Signs: Last Vital Signs Temp 98.5 F 02/11/18 20:00 Pulse 71 02/11/18 20:00 Resp 18 02/11/18 20:00 BP 144/82 02/11/18 20:00 Pulse Ox 96 02/11/18 20:00 - Labs Result Diagrams: 02/12/18 10:32 02/14/18 13:35 Labs: Laboratory Results - last 24 hr 02/11/18 02/11/18 02/11/18 04:00 07:03 16:18 Total Creatine Kinase 57 42 CK-MB (Mass) 0.44 0.46 Troponin I < 0.0120 < 0.0120 NT-Pro-B Natriuret Pep 66.0 Assessment & Plan (1) Acute asthma exacerbation Status: Acute (2) Allergic asthma Status: Acute (3) Morbid obesity Status: Acute (4) VEL (obstructive sleep apnea) Status: Acute (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
[2018-02-12] MEDS: Fluticasone Nasal 50 mcg/Spray NS SCH (09:52)
[2018-02-12] MEDS: Enoxaparin 40 mg Syringe SC SCH (09:53)
[2018-02-12] MEDS: Pantoprazole 20 mg EC Tab PO SCH (09:53)
[2018-02-12 10:41] LABS: BASO # 0.1 K/uL (0.0-0.2); EOS # 0.4 K/uL (0.0-0.7); EOS % 6.8 % (0.0-4.0); HEMOGLOBIN 13.5 g/dL (11.0-16.0); LYMPH # 1.6 K/uL (1.0-4.3); LYMPH % 29.8 % (20.0-40.0); MEAN CELL VOLUME 85.1 fL (81.0-99.0); MEAN CORPUSCULAR HEMOGLOBIN 27.9 pg (27.0-31.0); MEAN CORPUSCULAR HGB CONC 32.8 g/dL (33.0-37.0); MEAN PLATELET VOLUME 8.6 fL (7.2-11.7); MONO # 0.4 K/uL (0.0-0.8); MONO % 6.9 % (0.0-10.0); NEUT # 2.9 K/uL (1.8-7.0); NEUT % 55.5 % (50.0-75.0); NRBC % 0.1 % (0.0-2.0); RBC 4.83 Mil/uL (3.80-5.20); RED CELL DISTRIBUTION WIDTH 13.7 % (11.5-14.5); WHITE BLOOD COUNT 5.3 K/uL (4.8-10.8)
[2018-02-12 10:54] LABS: BLOOD UREA NITROGEN 17 mg/dL (7-17); CALCIUM 9.2 mg/dl (8.6-10.4); GFR NON-AFRICAN AMERICAN > 60
--- NOTE | 2018-02-12 12:09 | CP.PCM.PN ---
Subjective - Date & Time of Evaluation Date of Evaluation: 02/12/18 Time of Evaluation: 12:06 - Subjective Subjective: Pulmonary follow up, Covering Dr Alva The patient was Seen/interviewed and examined by me at the bedside, Medical records reviewed and Management issues were discussed and formulated with the house staff. Events reviewed 52 year old female with PMHx of sleep apnea, HTN Who presents to the ED c/o elevated blood pressure and dizziness. Patient reports she takes her amlodipine and lozartan in the morning but instead of t aking amlodipine 0.1 TID she takes 0.3 mg in the morning for her own convenience. Patient denies any significant weight loss or weight gain, her maximum weight was 305 pounds. Patient sleeps at night with her sleep apnea mask. Patient tolerated the CPAP last night Adequate saturation 94-97% on 2L nasal cannula Afebrile Comfortable, and in no acute distress. Denies any Chest pain, Dyspnea or cough. The only complaint is lower abdominal pain and bilateral calf spasm Electrolyte reviewed and supplemented Will order bilateral lower Ext ultrasound to R/O acute DVT Objective - Vital Signs/Intake and Output Vital Signs (last 24 hours): Temp Pulse Resp BP Pulse Ox 98.1 F 75 16 110/53 L 95 02/12/18 08:00 02/12/18 08:00 02/12/18 08:00 02/12/18 09:53 02/12/18 08:00 Intake and Output: 02/12/18 02/12/18 06:59 18:59 Intake Total 100 Output Total 300 Balance -200 - Medications Medications: Current Medications Albuterol/Ipratropium (Duoneb 3 Mg/0.5 Mg (3 Ml) Ud) 3 ml INH RQ6 PRN PRN Reason: Shortness of Breath Amlodipine Besylate (Norvasc) 10 mg PO DAILY [facility] Last Admin: 02/11/18 12:13 Dose: 10 mg Aspirin (Aspirin Chewable) 81 mg PO DAILY [facility] Last Admin: 02/12/18 09:52 Dose: 81 mg Budesonide (Pulmicort Respules) 0.25 mg INH RQ12 [facility] Last Admin: 02/11/18 19:35 Dose: Not Given Enoxaparin Sodium (Lovenox) 40 mg SC DAILY [facility] Last Admin: 02/12/18 09:53 Dose: 40 mg Fluticasone Propionate (Flonase) 0 spr NS DAILY [facility] Last Admin: 02/12/18 09:52 Dose: 1 pump Furosemide (Lasix) 40 mg IVP BID [facility] Last Admin: 02/12/18 09:53 Dose: 40 mg Losartan Potassium (Cozaar) 50 mg PO DAILY [facility] Last Admin: 02/12/18 09:52 Dose: 50 mg Montelukast Sodium (Singulair) 10 mg PO DAILY [facility] Last Admin: 02/12/18 09:54 Dose: 10 mg Nitroglycerin (Nitrostat Sl Tab) 0.4 mg SL PRN PRN PRN Reason: Shortness of Breath Pantoprazole Sodium (Protonix Ec Tab) 20 mg PO DAILY [facility] Last Admin: 02/12/18 09:53 Dose: 20 mg Rosuvastatin Calcium (Crestor) 10 mg PO HS [facility] Last Admin: 02/11/18 21:45 Dose: 10 mg Tramadol HCl (Ultram) 50 mg PO Q8 PRN PRN Reason: Pain, moderate (4-7) Last Admin: 02/12/18 09:54 Dose: 50 mg - Labs Labs: 02/12/18 10:32 02/12/18 10:32 - Constitutional Appears: Well, Non-toxic - Head Exam Head Exam: ATRAUMATIC, NORMAL INSPECTION - Eye Exam Eye Exam: EOMI, Normal appearance. absent: Conjunctival injection Pupil Exam: NORMAL ACCOMODATION, PERRL - Neck Exam Neck Exam: Normal Inspection - Respiratory Exam Respiratory Exam: Clear to Ausculation Bilateral, NORMAL BREATHING PATTERN. absent: Accessory Muscle Use, Chest Wall Tenderness, Decreased Breath Sounds, Rales, Rhonchi, Wheezes, Respiratory Distress, Stridor - GI/Abdominal Exam GI & Abdominal Exam: Soft, Normal Bowel Sounds. absent: Bruit, Distended, Firm, Guarding, Rigid, Tenderness - Back Exam Back Exam: absent: CVA tenderness (L), CVA tenderness (R) - Neurological Exam Neurological Exam: Alert, Altered, Awake, CN II-XII Intact, Normal Gait, Oriented x3. absent: Motor Sensory Deficit Assessment and Plan (1) Morbid obesity due to excess calories Status: Acute (2) Allergic asthma Status: Acute (3) COPD exacerbation Status: Acute (4) VEL (obstructive sleep apnea) Status: Acute
--- NOTE | 2018-02-12 13:26 | CP.PCM.PN ---
Subjective - Date & Time of Evaluation Date of Evaluation: 02/12/18 Time of Evaluation: 13:25 - Subjective Subjective: Events reviewed. Objective - Vital Signs/Intake and Output Vital Signs (last 24 hours): Temp Pulse Resp BP Pulse Ox 98.1 F 75 16 110/53 L 95 02/12/18 08:00 02/12/18 08:00 02/12/18 08:00 02/12/18 09:53 02/12/18 08:00 Intake and Output: 02/12/18 02/12/18 06:59 18:59 Intake Total 100 400 Output Total 300 500 Balance -200 -100 - Medications Medications: Current Medications Albuterol/Ipratropium (Duoneb 3 Mg/0.5 Mg (3 Ml) Ud) 3 ml INH RQ6 PRN PRN Reason: Shortness of Breath Amlodipine Besylate (Norvasc) 10 mg PO DAILY [facility] Last Admin: 02/11/18 12:13 Dose: 10 mg Aspirin (Aspirin Chewable) 81 mg PO DAILY [facility] Last Admin: 02/12/18 09:52 Dose: 81 mg Budesonide (Pulmicort Respules) 0.25 mg INH RQ12 [facility] Last Admin: 02/11/18 19:35 Dose: Not Given Enoxaparin Sodium (Lovenox) 40 mg SC DAILY [facility] Last Admin: 02/12/18 09:53 Dose: 40 mg Fluticasone Propionate (Flonase) 0 spr NS DAILY [facility] Last Admin: 02/12/18 09:52 Dose: 1 pump Furosemide (Lasix) 40 mg IVP BID [facility] Last Admin: 02/12/18 09:53 Dose: 40 mg Losartan Potassium (Cozaar) 50 mg PO DAILY [facility] Last Admin: 02/12/18 09:52 Dose: 50 mg Montelukast Sodium (Singulair) 10 mg PO DAILY [facility] Last Admin: 02/12/18 09:54 Dose: 10 mg Nitroglycerin (Nitrostat Sl Tab) 0.4 mg SL PRN PRN PRN Reason: Shortness of Breath Pantoprazole Sodium (Protonix Ec Tab) 20 mg PO DAILY [facility] Last Admin: 02/12/18 09:53 Dose: 20 mg Rosuvastatin Calcium (Crestor) 10 mg PO HS [facility] Last Admin: 02/11/18 21:45 Dose: 10 mg Tramadol HCl (Ultram) 50 mg PO Q8 PRN PRN Reason: Pain, moderate (4-7) Last Admin: 02/12/18 09:54 Dose: 50 mg - Labs Labs: 02/12/18 10:32 02/12/18 10:32 - Constitutional Appears: Well, Non-toxic - Head Exam Head Exam: ATRAUMATIC, NORMAL INSPECTION - Eye Exam Eye Exam: PERRL. absent: Scleral icterus - ENT Exam ENT Exam: Mucous Membranes Moist, Normal External Ear Exam - Neck Exam Neck Exam: absent: Lymphadenopathy, Thyromegaly - Respiratory Exam Respiratory Exam: Clear to Ausculation Bilateral. absent: NORMAL BREATHING PATTERN - Cardiovascular Exam Cardiovascular Exam: REGULAR RHYTHM, RRR, +S1, +S2. absent: JVD - GI/Abdominal Exam GI & Abdominal Exam: Normal Bowel Sounds. absent: Organomegaly - Neurological Exam Neurological Exam: CN II-XII Intact, Oriented x3 - Psychiatric Exam Psychiatric exam: Normal Affect, Normal Mood Assessment and Plan - Assessment and Plan (Free Text) Assessment: 52 year old female with hronic diastolic CHF diuresing with lasix, continue current dose Accelerated HTN likely excerbated by CHF, now stable when she is more euvolemic, continue losartan and amlodipine ASHD is chronic and stable, denies angina continue high dose statin
--- NOTE | 2018-02-12 14:42 | CP.PCM.PN ---
Subjective - Date & Time of Evaluation Date of Evaluation: 02/12/18 Time of Evaluation: 11:45 - Subjective Subjective: clinically same Objective - Vital Signs/Intake and Output Vital Signs (last 24 hours): Temp Pulse Resp BP Pulse Ox 98.1 F 75 16 110/53 L 95 02/12/18 08:00 02/12/18 08:00 02/12/18 08:00 02/12/18 09:53 02/12/18 08:00 Intake and Output: 02/12/18 02/12/18 06:59 18:59 Intake Total 100 400 Output Total 300 500 Balance -200 -100 - Medications Medications: Current Medications Albuterol/Ipratropium (Duoneb 3 Mg/0.5 Mg (3 Ml) Ud) 3 ml INH RQ6 PRN PRN Reason: Shortness of Breath Amlodipine Besylate (Norvasc) 10 mg PO DAILY [facility] Last Admin: 02/12/18 14:14 Dose: 10 mg Aspirin (Aspirin Chewable) 81 mg PO DAILY [facility] Last Admin: 02/12/18 09:52 Dose: 81 mg Budesonide (Pulmicort Respules) 0.25 mg INH RQ12 [facility] Last Admin: 02/11/18 19:35 Dose: Not Given Enoxaparin Sodium (Lovenox) 40 mg SC DAILY [facility] Last Admin: 02/12/18 09:53 Dose: 40 mg Fluticasone Propionate (Flonase) 0 spr NS DAILY [facility] Last Admin: 02/12/18 09:52 Dose: 1 pump Furosemide (Lasix) 40 mg IVP BID [facility] Last Admin: 02/12/18 09:53 Dose: 40 mg Losartan Potassium (Cozaar) 50 mg PO DAILY [facility] Last Admin: 02/12/18 09:52 Dose: 50 mg Montelukast Sodium (Singulair) 10 mg PO DAILY [facility] Last Admin: 02/12/18 09:54 Dose: 10 mg Nitroglycerin (Nitrostat Sl Tab) 0.4 mg SL PRN PRN PRN Reason: Shortness of Breath Last Admin: 02/12/18 14:20 Dose: 0.4 mg Pantoprazole Sodium (Protonix Ec Tab) 20 mg PO DAILY [facility] Last Admin: 02/12/18 09:53 Dose: 20 mg Rosuvastatin Calcium (Crestor) 10 mg PO [facility] Last Admin: 02/11/18 21:45 Dose: 10 mg Tramadol HCl (Ultram) 50 mg PO Q8 PRN PRN Reason: Pain, moderate (4-7) Last Admin: 02/12/18 09:54 Dose: 50 mg - Labs Labs: 02/12/18 10:32 02/12/18 10:32 - Constitutional Appears: Well - Head Exam Head Exam: ATRAUMATIC, NORMAL INSPECTION, NORMOCEPHALIC - Eye Exam Eye Exam: EOMI, Normal appearance, PERRL Pupil Exam: NORMAL ACCOMODATION, PERRL - ENT Exam ENT Exam: Mucous Membranes Moist, Normal Exam - Neck Exam Neck Exam: Full ROM, Normal Inspection. absent: Lymphadenopathy - Respiratory Exam Respiratory Exam: Decreased Breath Sounds - Cardiovascular Exam Cardiovascular Exam: REGULAR RHYTHM, +S1, +S2 - GI/Abdominal Exam GI & Abdominal Exam: Soft, Diminished Bowel Sounds - Rectal Exam Rectal Exam: Deferred Assessment and Plan (1) Abnormal EKG Status: Acute (2) Acute asthma exacerbation Status: Acute (3) Allergic asthma Status: Acute (4) Allergic asthma with acute exacerbation Status: Acute (5) Allergic reaction Status: Acute (6) Anxiety Status: Acute (7) Arthralgia of knee Status: Acute (8) Asthma Status: Acute (9) Asthma exacerbation Status: Acute (10) Rosa cyst Status: Acute (11) Body fluid retention Status: Acute (12) COPD exacerbation Status: Acute (13) Chest pain Status: Acute (14) Chest pain Status: Acute (15) Chest wall pain Status: Acute (16) Chronic leg pain Status: Acute (17) Dyspnea Status: Acute (18) Foot pain, right Status: Acute (19) HTN (hypertension) Status: Acute (20) Knee pain, right Status: Acute (21) Morbid obesity Status: Acute (22) Morbid obesity due to excess calories Status: Acute (23) VEL (obstructive sleep apnea) Status: Acute (24) 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 (25) Paresthesia and pain of extremity Status: Acute (26) Prophylactic measure Status: Acute (27) Skin irritation Status: Acute (28) Skin rash Status: Acute (29) Syncope Status: Acute (30) Synovial cyst of popliteal space [Rosa], right knee Status: Acute (31) Uncontrolled hypertension Status: Acute (32) Asthma Status: Chronic (33) Costochondral chest pain Status: Resolved (34) Shortness of breath Status: Resolved - Assessment and Plan (Free Text) Plan: Seen and examined at bedside Events noted Tolerated CPAP last night Pressure control Aspirin DVT/GI prophylaxis Nebulizers Monitor input and output Watch for breathlessness High-dose statin Monitor O2 saturation
[2018-02-12] MEDS: Budesonide 0.25 mg/2 ml Inhal Susp UD INH SCH (18:42)
[2018-02-12] MEDS: Albuterol-Ipratrop 3 mg / 0.5 (3 ml) UD INH PRN (18:42)
[2018-02-13] MEDS: Albuterol-Ipratrop 3 mg / 0.5 (3 ml) UD INH PRN (07:51)
[2018-02-13] MEDS: Budesonide 0.25 mg/2 ml Inhal Susp UD INH SCH ×2 (07:51→20:25)
--- NOTE | 2018-02-13 08:01 | CARD ---
APPROVED REPORT Date of service: 02/10/2018 EKG Measurement Heart [id number] <Conclusion> Sinus rhythm with 1st degree AV block Possible Left atrial enlargement Septal infarct, age undetermined Abnormal ECG
--- NOTE | 2018-02-13 10:01 | CP.PCM.PN ---
Subjective - Date & Time of Evaluation Date of Evaluation: 02/13/18 Time of Evaluation: 10:01 - Subjective Subjective: Pulmonary follow up, Covering Dr Alva The patient was Seen/interviewed and examined by me at the bedside, Medical records reviewed and Management issues were discussed and formulated with the house staff. Events reviewed 52 year old female with PMHx of sleep apnea, HTN Who presents to the ED c/o elevated blood pressure and dizziness. Patient reports she takes her amlodipine and lozartan in the morning but instead of ta lorraine amlodipine 0.1 TID she takes 0.3 mg in the morning for her own convenience. Patient denies any significant weight loss or weight gain, her maximum weight was 305 pounds. Patient sleeps at night with her sleep apnea mask. Patient tolerated the CPAP last night Adequate saturation 94-97% on 2L nasal cannula Afebrile Comfortable, and in no acute distress. Denies any Chest pain, Dyspnea or cough. The only complaint is lower abdominal pain and bilateral calf spasm Electrolyte reviewed and supplemented bilateral lower Ext ultrasound negative for acute DVT Objective - Vital Signs/Intake and Output Vital Signs (last 24 hours): Temp Pulse Resp BP Pulse Ox 98 F 76 21 128/53 L 96 02/13/18 04:00 02/13/18 04:00 02/13/18 04:00 02/13/18 04:00 02/13/18 04:00 Intake and Output: 02/13/18 02/13/18 06:59 18:59 Intake Total 530 Output Total 1200 Balance -670 - Medications Medications: Current Medications Albuterol/Ipratropium (Duoneb 3 Mg/0.5 Mg (3 Ml) Ud) 3 ml INH RQ6 PRN PRN Reason: Shortness of Breath Last Admin: 02/13/18 07:51 Dose: 3 ml Amlodipine Besylate (Norvasc) 10 mg PO DAILY [facility] Last Admin: 02/12/18 14:14 Dose: 10 mg Aspirin (Aspirin Chewable) 81 mg PO DAILY [facility] Last Admin: 02/12/18 09:52 Dose: 81 mg Budesonide (Pulmicort Respules) 0.25 mg INH RQ12 [facility] Last Admin: 02/13/18 07:51 Dose: 0.25 mg Enoxaparin Sodium (Lovenox) 40 mg SC DAILY [facility] Last Admin: 10/07/18 09:53 Dose: 40 mg Fluticasone Propionate (Flonase) 0 spr NS DAILY [facility] Last Admin: 02/12/18 09:52 Dose: 1 pump Furosemide (Lasix) 40 mg PO BID [facility] Last Admin: 02/12/18 21:38 Dose: 40 mg Losartan Potassium (Cozaar) 50 mg PO DAILY [facility] Last Admin: 02/12/18 09:52 Dose: 50 mg Montelukast Sodium (Singulair) 10 mg PO DAILY [facility] Last Admin: 02/12/18 09:54 Dose: 10 mg Nitroglycerin (Nitrostat Sl Tab) 0.4 mg SL Q5MIN PRN PRN Reason: Shortness of Breath Pantoprazole Sodium (Protonix Ec Tab) 20 mg PO DAILY [facility] Last Admin: 02/12/18 09:53 Dose: 20 mg Rosuvastatin Calcium (Crestor) 10 mg PO HS [facility] Last Admin: 02/12/18 21:38 Dose: 10 mg Tramadol HCl (Ultram) 50 mg PO Q8 PRN PRN Reason: Pain, moderate (4-7) Last Admin: 02/13/18 04:55 Dose: 50 mg - Labs Labs: 02/12/18 10:32 02/12/18 10:32 - Head Exam Head Exam: ATRAUMATIC, NORMAL INSPECTION, NORMOCEPHALIC - Eye Exam Eye Exam: EOMI, Normal appearance, PERRL - ENT Exam ENT Exam: Mucous Membranes Moist, Normal Exam - Neck Exam Neck Exam: Full ROM, Normal Inspection. absent: Lymphadenopathy - Respiratory Exam Respiratory Exam: Decreased Breath Sounds, Prolonged Expiratory Phase, Rhonchi. absent: Accessory Muscle Use, Wheezes - Cardiovascular Exam Cardiovascular Exam: REGULAR RHYTHM, +S1, +S2. absent: Murmur - GI/Abdominal Exam GI & Abdominal Exam: Soft, Normal Bowel Sounds. absent: Tenderness Assessment and Plan (1) Morbid obesity due to excess calories Status: Acute (2) Allergic asthma Status: Acute (3) COPD exacerbation Status: Acute (4) VEL (obstructive sleep apnea) Status: Acute
[2018-02-13] MEDS: Enoxaparin 40 mg Syringe SC SCH (10:31)
[2018-02-13] MEDS: Pantoprazole 20 mg EC Tab PO SCH (10:32)
[2018-02-13] MEDS: Fluticasone Nasal 50 mcg/Spray NS SCH (10:40)
--- NOTE | 2018-02-13 12:29 | CP.PCM.PN ---
Subjective - Date & Time of Evaluation Date of Evaluation: 02/13/18 Time of Evaluation: 13:05 - Subjective Subjective: No CP No PRATER, nubness or tingling No fevers or chills No SOB Objective - Vital Signs/Intake and Output Vital Signs (last 24 hours): Temp Pulse Resp BP Pulse Ox 98 F 76 18 140/80 96 02/13/18 12:00 02/13/18 12:00 02/13/18 12:00 02/13/18 12:00 02/13/18 12:00 Intake and Output: 02/13/18 02/13/18 06:59 18:59 Intake Total 530 200 Output Total 1200 500 Balance -670 -300 - Medications Medications: Current Medications Albuterol/Ipratropium (Duoneb 3 Mg/0.5 Mg (3 Ml) Ud) 3 ml INH RQ6 PRN PRN Reason: Shortness of Breath Last Admin: 02/13/18 07:51 Dose: 3 ml Amlodipine Besylate (Norvasc) 10 mg PO DAILY [facility] Last Admin: 02/13/18 10:37 Dose: 10 mg Aspirin (Aspirin Chewable) 81 mg PO DAILY [facility] Last Admin: 02/13/18 10:32 Dose: 81 mg Budesonide (Pulmicort Respules) 0.25 mg INH RQ12 [facility] Last Admin: 02/13/18 07:51 Dose: 0.25 mg Enoxaparin Sodium (Lovenox) 40 mg SC DAILY [facility] Last Admin: 02/13/18 10:31 Dose: 40 mg Fluticasone Propionate (Flonase) 0 spr NS DAILY [facility] Last Admin: 02/13/18 10:40 Dose: 1 pump Furosemide (Lasix) 40 mg PO BID [facility] Last Admin: 02/13/18 10:32 Dose: 40 mg Losartan Potassium (Cozaar) 50 mg PO DAILY [facility] Last Admin: 02/13/18 10:37 Dose: 50 mg Montelukast Sodium (Singulair) 10 mg PO DAILY [facility] Last Admin: 02/13/18 10:40 Dose: 10 mg Nitroglycerin (Nitrostat Sl Tab) 0.4 mg SL Q5MIN PRN PRN Reason: Shortness of Breath Pantoprazole Sodium (Protonix Ec Tab) 20 mg PO DAILY [facility] Last Admin: 02/13/18 10:32 Dose: 20 mg Rosuvastatin Calcium (Crestor) 10 mg PO HS [facility] Last Admin: 02/12/18 21:38 Dose: 10 mg Tramadol HCl (Ultram) 50 mg PO Q8 PRN PRN Reason: Pain, moderate (4-7) Last Admin: 02/13/18 04:55 Dose: 50 mg - Labs Labs: 02/12/18 10:32 02/12/18 10:32 - Constitutional Appears: No Acute Distress (Morbidly obese) - Eye Exam Eye Exam: EOMI, Normal appearance, PERRL - ENT Exam ENT Exam: Mucous Membranes Moist, Normal Oropharynx - Neck Exam Neck Exam: Full ROM. absent: Tenderness - Respiratory Exam Respiratory Exam: Clear to Ausculation Bilateral. absent: Rhonchi, Wheezes - Cardiovascular Exam Cardiovascular Exam: REGULAR RHYTHM, +S1, +S2 - Extremities Exam Extremities Exam: Calf Tenderness (L. calf pain), Full ROM, Normal Inspection. absent: Pedal Edema, Tenderness - Neurological Exam Neurological Exam: Alert, Awake, Oriented x3 - Psychiatric Exam Psychiatric exam: Normal Affect - Skin Skin Exam: Normal Color, Warm Assessment and Plan - Assessment and Plan (Free Text) Assessment: CXR: No effusion or infiltrate EKG: NSR, 1st deg AVB, LAE, poor r-wave progression 52 year old female with hronic diastolic CHF diuresing with lasix, continue current dose Accelerated HTN likely excerbated by CHF, now stable when she is more euvolemic, continue losartan and amlodipine - BP improved ASHD is chronic and stable, denies angina continue high dose statin L. calf pain: f/u LE U/S results, exam is not suspicious for DVT
[2018-02-13 15:30] VITALS: RESP 20
--- NOTE | 2018-02-13 18:25 | CP.PCM.PN ---
Subjective - Date & Time of Evaluation Date of Evaluation: 02/13/18 Time of Evaluation: 09:00 - Subjective Subjective: clinically same Objective - Vital Signs/Intake and Output Vital Signs (last 24 hours): Temp Pulse Resp BP Pulse Ox 98.3 F 77 20 106/72 95 02/13/18 15:00 02/13/18 15:25 02/13/18 15:00 02/13/18 17:12 02/13/18 15:00 Intake and Output: 02/13/18 02/13/18 06:59 18:59 Intake Total 530 200 Output Total 1200 500 Balance -670 -300 - Medications Medications: Current Medications Albuterol/Ipratropium (Duoneb 3 Mg/0.5 Mg (3 Ml) Ud) 3 ml INH RQ6 PRN PRN Reason: Shortness of Breath Last Admin: 02/13/18 07:51 Dose: 3 ml Amlodipine Besylate (Norvasc) 10 mg PO DAILY [facility] Last Admin: 02/13/18 10:37 Dose: 10 mg Aspirin (Aspirin Chewable) 81 mg PO DAILY [facility] Last Admin: 02/13/18 10:32 Dose: 81 mg Budesonide (Pulmicort Respules) 0.25 mg INH RQ12 [facility] Last Admin: 02/13/18 07:51 Dose: 0.25 mg Enoxaparin Sodium (Lovenox) 40 mg SC DAILY [facility] Last Admin: 02/13/18 10:31 Dose: 40 mg Fluticasone Propionate (Flonase) 0 spr NS DAILY [facility] Last Admin: 02/13/18 10:40 Dose: 1 pump Furosemide (Lasix) 40 mg PO BID [facility] Last Admin: 02/13/18 17:12 Dose: 40 mg Losartan Potassium (Cozaar) 50 mg PO DAILY [facility] Last Admin: 02/13/18 10:37 Dose: 50 mg Montelukast Sodium (Singulair) 10 mg PO DAILY [facility] Last Admin: 02/13/18 10:40 Dose: 10 mg Nitroglycerin (Nitrostat Sl Tab) 0.4 mg SL Q5MIN PRN PRN Reason: Shortness of Breath Pantoprazole Sodium (Protonix Ec Tab) 20 mg PO DAILY [facility] Last Admin: 02/13/18 10:32 Dose: 20 mg Rosuvastatin Calcium (Crestor) 10 mg PO HS [facility] Last Admin: 02/12/18 21:38 Dose: 10 mg Tramadol HCl (Ultram) 50 mg PO Q8 PRN PRN Reason: Pain, moderate (4-7) Last Admin: 02/13/18 12:34 Dose: 50 mg - Labs Labs: 02/12/18 10:32 02/12/18 10:32 - Constitutional Appears: Non-toxic, No Acute Distress - Head Exam Head Exam: ATRAUMATIC - Eye Exam Eye Exam: EOMI, Normal appearance - ENT Exam ENT Exam: Mucous Membranes Moist - Respiratory Exam Respiratory Exam: Decreased Breath Sounds - Cardiovascular Exam Cardiovascular Exam: +S1, +S2 - GI/Abdominal Exam GI & Abdominal Exam: Diminished Bowel Sounds - Rectal Exam Rectal Exam: Deferred Assessment and Plan (1) Abnormal EKG Status: Acute (2) Acute asthma exacerbation Status: Acute (3) Allergic asthma Status: Acute (4) Allergic asthma with acute exacerbation Status: Acute (5) Allergic reaction Status: Acute (6) Anxiety Status: Acute (7) Arthralgia of knee Status: Acute (8) Asthma Status: Acute (9) Asthma exacerbation Status: Acute (10) Rosa cyst Status: Acute (11) Body fluid retention Status: Acute (12) COPD exacerbation Status: Acute (13) Chest pain Status: Acute (14) Chest pain Status: Acute (15) Chest wall pain Status: Acute (16) Chronic leg pain Status: Acute (17) Dyspnea Status: Acute (18) Foot pain, right Status: Acute (19) HTN (hypertension) Status: Acute (20) Knee pain, right Status: Acute (21) Morbid obesity Status: Acute (22) Morbid obesity due to excess calories Status: Acute (23) VEL (obstructive sleep apnea) Status: Acute (24) 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 (25) Paresthesia and pain of extremity Status: Acute (26) Prophylactic measure Status: Acute (27) Skin irritation Status: Acute (28) Skin rash Status: Acute (29) Syncope Status: Acute (30) Synovial cyst of popliteal space [Rosa], right knee Status: Acute (31) Uncontrolled hypertension Status: Acute (32) Asthma Status: Chronic (33) Costochondral chest pain Status: Resolved (34) Shortness of breath Status: Resolved - Assessment and Plan (Free Text) Plan: Patient seen and examined at bedside Labs and meds reviewed Blood pressure meds Aspirin Steroids Close monitoring Monitor input and output
[2018-02-14] MEDS ORDERED: Morphine 15 mg Immediate Release Tab PO PRN (01:35)
[2018-02-14] MEDS: Budesonide 0.25 mg/2 ml Inhal Susp UD INH SCH (08:45)
[2018-02-14] MEDS: Albuterol-Ipratrop 3 mg / 0.5 (3 ml) UD INH PRN (08:45)
[2018-02-14] MEDS: Enoxaparin 40 mg Syringe SC SCH (09:33)
[2018-02-14] MEDS: Pantoprazole 20 mg EC Tab PO SCH (09:33)
[2018-02-14] MEDS: Fluticasone Nasal 50 mcg/Spray NS SCH (09:36)
--- NOTE | 2018-02-14 10:12 | CP.PCM.PN ---
Subjective - Date & Time of Evaluation Date of Evaluation: 02/14/18 Time of Evaluation: 10:11 - Subjective Subjective: NO cardiovascular complaints No SOB No fevers, chills, numbness or tingling Objective - Vital Signs/Intake and Output Vital Signs (last 24 hours): Temp Pulse Resp BP Pulse Ox 97.9 F 71 20 117/76 96 02/14/18 08:19 02/14/18 08:19 02/14/18 08:19 02/14/18 09:33 02/14/18 08:19 Intake and Output: 02/14/18 02/14/18 06:59 18:59 Intake Total 300 Balance 300 - Medications Medications: Current Medications Albuterol/Ipratropium (Duoneb 3 Mg/0.5 Mg (3 Ml) Ud) 3 ml INH RQ6 PRN PRN Reason: Shortness of Breath Last Admin: 02/14/18 08:45 Dose: 3 ml Amlodipine Besylate (Norvasc) 10 mg PO DAILY [facility] Last Admin: 02/14/18 09:33 Dose: 10 mg Aspirin (Aspirin Chewable) 81 mg PO DAILY [facility] Last Admin: 02/14/18 09:32 Dose: 81 mg Budesonide (Pulmicort Respules) 0.25 mg INH RQ12 [facility] Last Admin: 02/14/18 08:45 Dose: 0.25 mg Enoxaparin Sodium (Lovenox) 40 mg SC DAILY [facility] Last Admin: 02/14/18 09:33 Dose: 40 mg Fluticasone Propionate (Flonase) 0 spr NS DAILY [facility] Last Admin: 02/14/18 09:36 Dose: 1 pump Furosemide (Lasix) 40 mg PO BID [facility] Last Admin: 02/14/18 09:33 Dose: 40 mg Losartan Potassium (Cozaar) 50 mg PO DAILY [facility] Last Admin: 02/14/18 09:32 Dose: 50 mg Montelukast Sodium (Singulair) 10 mg PO DAILY [facility] Last Admin: 02/14/18 09:32 Dose: 10 mg Morphine Sulfate (Morphine Immediate Release Tab) 15 mg PO Q8H PRN PRN Reason: Pain, moderate (4-7) Nitroglycerin (Nitrostat Sl Tab) 0.4 mg SL Q5MIN PRN PRN Reason: Shortness of Breath Pantoprazole Sodium (Protonix Ec Tab) 20 mg PO DAILY [facility] Last Admin: 02/14/18 09:33 Dose: 20 mg Rosuvastatin Calcium (Crestor) 10 mg PO HS [facility] Last Admin: 02/13/18 21:27 Dose: 10 mg Tramadol HCl (Ultram) 50 mg PO Q8 PRN PRN Reason: Pain, moderate (4-7) Last Admin: 02/14/18 09:31 Dose: 50 mg - Labs Labs: 02/12/18 10:32 02/12/18 10:32 - Constitutional Appears: No Acute Distress - Head Exam Head Exam: ATRAUMATIC, NORMAL INSPECTION, NORMOCEPHALIC - Eye Exam Eye Exam: EOMI, Normal appearance, PERRL. absent: Scleral icterus - ENT Exam ENT Exam: Mucous Membranes Moist - Neck Exam Neck Exam: Full ROM. absent: Tenderness, Thyromegaly - Respiratory Exam Respiratory Exam: Clear to Ausculation Bilateral. absent: Rales, Rhonchi, Wheezes - Cardiovascular Exam Cardiovascular Exam: REGULAR RHYTHM, +S1, +S2. absent: Gallop, Murmur - GI/Abdominal Exam GI & Abdominal Exam: Soft. absent: Tenderness - Extremities Exam Extremities Exam: Full ROM. absent: Pedal Edema, Tenderness - Neurological Exam Neurological Exam: Alert, Awake, Oriented x3 - Psychiatric Exam Psychiatric exam: Normal Mood Assessment and Plan - Assessment and Plan (Free Text) Assessment: CXR: No effusion or infiltrate EKG: NSR, 1st deg AVB, LAE, poor r-wave progression 52 year old female with chronic diastolic CHF diuresing with lasix, continue current dose Accelerated HTN likely excerbated by CHF, now stable when she is more euvolemic, continue losartan and amlodipine - BP improved ASHD is chronic and stable, denies angina continue high dose statin L. calf pain: f/u LE U/S results, exam is not suspicious for DVT f/u final results Obese/VEL/COPD/ - weight loss, compliance with CPAP, PT
--- NOTE | 2018-02-14 12:46 | CP.PCM.PN ---
Subjective - Date & Time of Evaluation Date of Evaluation: 02/14/18 Time of Evaluation: 12:46 - Subjective Subjective: Pulmonary follow up, Covering Dr Alva The patient was Seen/interviewed and examined by me at the bedside, Medical records reviewed and Management issues were discussed and formulated with the house staff. Events reviewed 52 year old female with PMHx of sleep apnea, HTN Who presents to the ED c/o elevated blood pressure and dizziness. Patient reports she takes her amlodipine and lozartan in the morning but instead of t aking amlodipine 0.1 TID she takes 0.3 mg in the morning for her own convenience. Patient denies any significant weight loss or weight gain, her maximum weight was 305 pounds. Patient sleeps at night with her sleep apnea mask. Patient tolerated the CPAP last night Adequate saturation 94-97% on 2L nasal cannula Afebrile Comfortable, and in no acute distress. Denies any Chest pain, Dyspnea or cough. The only complaint is lower abdominal pain and bilateral calf spasm, Improving Electrolyte reviewed and supplemented bilateral lower Ext ultrasound negative for acute DVT Objective - Vital Signs/Intake and Output Vital Signs (last 24 hours): Temp Pulse Resp BP Pulse Ox 97.9 F 71 20 117/76 96 02/14/18 08:19 02/14/18 08:19 02/14/18 08:19 02/14/18 09:33 02/14/18 08:19 Intake and Output: 02/14/18 02/14/18 06:59 18:59 Intake Total 300 Balance 300 - Medications Medications: Current Medications Albuterol/Ipratropium (Duoneb 3 Mg/0.5 Mg (3 Ml) Ud) 3 ml INH RQ6 PRN PRN Reason: Shortness of Breath Last Admin: 02/14/18 08:45 Dose: 3 ml Amlodipine Besylate (Norvasc) 10 mg PO DAILY [facility] Last Admin: 02/14/18 09:33 Dose: 10 mg Aspirin (Aspirin Chewable) 81 mg PO DAILY [facility] Last Admin: 02/14/18 09:32 Dose: 81 mg Budesonide (Pulmicort Respules) 0.25 mg INH RQ12 [facility] Last Admin: 02/14/18 08:45 Dose: 0.25 mg Enoxaparin Sodium (Lovenox) 40 mg SC DAILY [facility] Last Admin: 10/09/18 09:33 Dose: 40 mg Fluticasone Propionate (Flonase) 0 spr NS DAILY [facility] Last Admin: 02/14/18 09:36 Dose: 1 pump Furosemide (Lasix) 40 mg PO BID [facility] Last Admin: 02/14/18 09:33 Dose: 40 mg Losartan Potassium (Cozaar) 50 mg PO DAILY [facility] Last Admin: 02/14/18 09:32 Dose: 50 mg Montelukast Sodium (Singulair) 10 mg PO DAILY [facility] Last Admin: 02/14/18 09:32 Dose: 10 mg Morphine Sulfate (Morphine Immediate Release Tab) 15 mg PO Q8H PRN PRN Reason: Pain, moderate (4-7) Nitroglycerin (Nitrostat Sl Tab) 0.4 mg SL Q5MIN PRN PRN Reason: Shortness of Breath Pantoprazole Sodium (Protonix Ec Tab) 20 mg PO DAILY [facility] Last Admin: 02/14/18 09:33 Dose: 20 mg Rosuvastatin Calcium (Crestor) 10 mg PO HS [facility] Last Admin: 02/13/18 21:27 Dose: 10 mg Tramadol HCl (Ultram) 50 mg PO Q8 PRN PRN Reason: Pain, moderate (4-7) Last Admin: 02/14/18 09:31 Dose: 50 mg - Labs Labs: 02/12/18 10:32 02/12/18 10:32 - Constitutional Appears: Well, Non-toxic - Head Exam Head Exam: ATRAUMATIC, NORMAL INSPECTION, NORMOCEPHALIC - Eye Exam Eye Exam: EOMI, Normal appearance, PERRL - ENT Exam ENT Exam: Mucous Membranes Moist, Normal Exam - Neck Exam Neck Exam: Full ROM, Normal Inspection. absent: Lymphadenopathy - Respiratory Exam Respiratory Exam: Decreased Breath Sounds, Prolonged Expiratory Phase, Rhonchi. absent: Accessory Muscle Use, Chest Wall Tenderness, Rales, Wheezes, Respiratory Distress, Stridor - Cardiovascular Exam Cardiovascular Exam: REGULAR RHYTHM, +S1, +S2. absent: Irregular Rhythm, Murmur - GI/Abdominal Exam GI & Abdominal Exam: Distended, Soft, Normal Bowel Sounds. absent: Firm, Guarding, Rigid - Back Exam Back Exam: absent: CVA tenderness (L), CVA tenderness (R) - Neurological Exam Neurological Exam: Alert, Awake, CN II-XII Intact, Oriented x3. absent: Motor Sensory Deficit Assessment and Plan (1) Morbid obesity due to excess calories Status: Acute (2) Allergic asthma Status: Acute (3) COPD exacerbation Status: Acute (4) VEL (obstructive sleep apnea) Status: Acute (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 (6) Paresthesia and pain of extremity Status: Acute
[2018-02-14 13:59] LABS: ALB/GLOB RATIO 1.2 (1.0-2.1); ALBUMIN 4.3 g/dL (3.5-5.0); ALT/SGPT 27 U/L (9-52); AST/SGOT 20 U/L (14-36); BLOOD UREA NITROGEN 16 mg/dL (7-17); CALCIUM 9.5 mg/dl (8.6-10.4); GFR NON-AFRICAN AMERICAN > 60
--- NOTE | 2018-02-14 15:16 | CP.PCM.PN ---
Subjective - Date & Time of Evaluation Date of Evaluation: 02/14/18 Time of Evaluation: 09:45 - Subjective Subjective: clinically same Objective - Vital Signs/Intake and Output Vital Signs (last 24 hours): Temp Pulse Resp BP Pulse Ox 97.9 F 71 20 117/76 96 02/14/18 08:19 02/14/18 08:19 02/14/18 08:19 02/14/18 09:33 02/14/18 08:19 Intake and Output: 02/14/18 02/14/18 06:59 18:59 Intake Total 300 Balance 300 - Medications Medications: Current Medications Albuterol/Ipratropium (Duoneb 3 Mg/0.5 Mg (3 Ml) Ud) 3 ml INH RQ6 PRN PRN Reason: Shortness of Breath Last Admin: 02/14/18 08:45 Dose: 3 ml Amlodipine Besylate (Norvasc) 10 mg PO DAILY [facility] Last Admin: 02/14/18 09:33 Dose: 10 mg Aspirin (Aspirin Chewable) 81 mg PO DAILY [facility] Last Admin: 02/14/18 09:32 Dose: 81 mg Budesonide (Pulmicort Respules) 0.25 mg INH RQ12 [facility] Last Admin: 02/14/18 08:45 Dose: 0.25 mg Enoxaparin Sodium (Lovenox) 40 mg SC DAILY [facility] Last Admin: 02/14/18 09:33 Dose: 40 mg Fluticasone Propionate (Flonase) 0 spr NS DAILY [facility] Last Admin: 02/14/18 09:36 Dose: 1 pump Furosemide (Lasix) 40 mg PO BID [facility] Last Admin: 02/14/18 09:33 Dose: 40 mg Losartan Potassium (Cozaar) 50 mg PO DAILY [facility] Last Admin: 02/14/18 09:32 Dose: 50 mg Montelukast Sodium (Singulair) 10 mg PO DAILY [facility] Last Admin: 02/14/18 09:32 Dose: 10 mg Morphine Sulfate (Morphine Immediate Release Tab) 15 mg PO Q8H PRN PRN Reason: Pain, moderate (4-7) Nitroglycerin (Nitrostat Sl Tab) 0.4 mg SL Q5MIN PRN PRN Reason: Shortness of Breath Pantoprazole Sodium (Protonix Ec Tab) 20 mg PO DAILY [facility] Last Admin: 02/14/18 09:33 Dose: 20 mg Rosuvastatin Calcium (Crestor) 10 mg PO HS [facility] Last Admin: 02/13/18 21:27 Dose: 10 mg Tramadol HCl (Ultram) 50 mg PO Q8 PRN PRN Reason: Pain, moderate (4-7) Last Admin: 02/14/18 09:31 Dose: 50 mg - Labs Labs: 02/12/18 10:32 02/14/18 13:35 - Constitutional Appears: Well - Head Exam Head Exam: ATRAUMATIC, NORMAL INSPECTION, NORMOCEPHALIC - Eye Exam Eye Exam: EOMI, Normal appearance, PERRL Pupil Exam: NORMAL ACCOMODATION, PERRL - ENT Exam ENT Exam: Mucous Membranes Moist, Normal Exam - Neck Exam Neck Exam: Full ROM, Normal Inspection. absent: Lymphadenopathy - Respiratory Exam Respiratory Exam: Decreased Breath Sounds - Cardiovascular Exam Cardiovascular Exam: REGULAR RHYTHM, +S1, +S2 - GI/Abdominal Exam GI & Abdominal Exam: Soft, Diminished Bowel Sounds - Rectal Exam Rectal Exam: Deferred Assessment and Plan (1) Abnormal EKG Status: Acute (2) Acute asthma exacerbation Status: Acute (3) Allergic asthma Status: Acute (4) Allergic asthma with acute exacerbation Status: Acute (5) Allergic reaction Status: Acute (6) Anxiety Status: Acute (7) Arthralgia of knee Status: Acute (8) Asthma Status: Acute (9) Asthma exacerbation Status: Acute (10) Rosa cyst Status: Acute (11) Body fluid retention Status: Acute (12) COPD exacerbation Status: Acute (13) Chest pain Status: Acute (14) Chest pain Status: Acute (15) Chest wall pain Status: Acute (16) Chronic leg pain Status: Acute (17) Dyspnea Status: Acute (18) Foot pain, right Status: Acute (19) HTN (hypertension) Status: Acute (20) Knee pain, right Status: Acute (21) Morbid obesity Status: Acute (22) Morbid obesity due to excess calories Status: Acute (23) VEL (obstructive sleep apnea) Status: Acute (24) 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 (25) Paresthesia and pain of extremity Status: Acute (26) Prophylactic measure Status: Acute (27) Skin irritation Status: Acute (28) Skin rash Status: Acute (29) Syncope Status: Acute (30) Synovial cyst of popliteal space [Rosa], right knee Status: Acute (31) Uncontrolled hypertension Status: Acute (32) Asthma Status: Chronic (33) Costochondral chest pain Status: Resolved (34) Shortness of breath Status: Resolved - Assessment and Plan (Free Text) Plan: Patient seen and examined at bedside Hemodynamically stable feeling better Discharge home Meds as advised Follow-up in office in 1-2 weeks Continue home meds Lasix p.o. Return to ED if symptom recurs
[2018-02-14 15:34] VITALS: BP 123/81; PULSE 70; TEMP 98.2; O2SAT 95
--- NOTE | 2018-02-14 15:35 | US ---
Date of service: 02/14/2018 HISTORY: Abdominal pain, R/O cyst COMPARISON: None available TECHNIQUE: Real-time transabdominal pelvic ultrasound was performed. In addition a transvaginal pelvic ultrasound was necessary to better depict pelvic anatomy. FINDINGS: Examination limited by habitus. UTERUS: Measures 12.2 x 8.0 x 9.2 cm. Anteverted. 5.9 x 5.6 x 6.4 cm and 3.9 x 3.6 x 4.2 cm mid uterine fibroids. ENDOMETRIUM: Measures 5 mm in diameter. CERVIX: No cervical abnormality identified. RIGHT OVARY: Not visualized. LEFT OVARY: Not visualized. FREE FLUID: No significant free fluid noted. OTHER FINDINGS: None. IMPRESSION: Limited study. Two uterine fibroids as above. Bilateral ovaries were not visualized.
--- NOTE | 2018-02-14 17:03 | CP.PCM.PN ---
Subjective - Date & Time of Evaluation Date of Evaluation: 02/14/18 Time of Evaluation: 17:03 - Subjective Subjective: PATIENT SEEN AND EXAMINED AT THE BEDSIDE Objective - Vital Signs/Intake and Output Vital Signs (last 24 hours): Temp Pulse Resp BP Pulse Ox 98.2 F 70 20 123/81 95 02/14/18 15:00 02/14/18 15:00 02/14/18 15:00 02/14/18 15:00 02/14/18 15:00 Intake and Output: 02/14/18 02/14/18 06:59 18:59 Intake Total 300 Balance 300 - Medications Medications: Current Medications Albuterol/Ipratropium (Duoneb 3 Mg/0.5 Mg (3 Ml) Ud) 3 ml INH RQ6 PRN PRN Reason: Shortness of Breath Last Admin: 02/14/18 08:45 Dose: 3 ml Amlodipine Besylate (Norvasc) 10 mg PO DAILY [facility] Last Admin: 02/14/18 09:33 Dose: 10 mg Aspirin (Aspirin Chewable) 81 mg PO DAILY [facility] Last Admin: 02/14/18 09:32 Dose: 81 mg Budesonide (Pulmicort Respules) 0.25 mg INH RQ12 [facility] Last Admin: 02/14/18 08:45 Dose: 0.25 mg Enoxaparin Sodium (Lovenox) 40 mg SC DAILY [facility] Last Admin: 02/14/18 09:33 Dose: 40 mg Fluticasone Propionate (Flonase) 0 spr NS DAILY [facility] Last Admin: 02/14/18 09:36 Dose: 1 pump Furosemide (Lasix) 40 mg PO BID [facility] Last Admin: 02/14/18 09:33 Dose: 40 mg Losartan Potassium (Cozaar) 50 mg PO DAILY [facility] Last Admin: 02/14/18 09:32 Dose: 50 mg Montelukast Sodium (Singulair) 10 mg PO DAILY [facility] Last Admin: 02/14/18 09:32 Dose: 10 mg Morphine Sulfate (Morphine Immediate Release Tab) 15 mg PO Q8H PRN PRN Reason: Pain, moderate (4-7) Nitroglycerin (Nitrostat Sl Tab) 0.4 mg SL Q5MIN PRN PRN Reason: Shortness of Breath Pantoprazole Sodium (Protonix Ec Tab) 20 mg PO DAILY [facility] Last Admin: 02/14/18 09:33 Dose: 20 mg Rosuvastatin Calcium (Crestor) 10 mg PO HS [facility] Last Admin: 02/13/18 21:27 Dose: 10 mg Tramadol HCl (Ultram) 50 mg PO Q8 PRN PRN Reason: Pain, moderate (4-7) Last Admin: 02/14/18 09:31 Dose: 50 mg - Labs Labs: 02/12/18 10:32 02/14/18 13:35 Assessment and Plan - Assessment and Plan (Free Text) Assessment: FOLLOW UP WITH DR Philly POWERS IN HIS OFFICE ---CALL FOR APPOINTMENT FOLLOW UP WITH YOUR OBGYN FOR UTERINE FIBROIDS CONTINUE HOME MEDICATION NEW PRESCRIPTION GIVEN LASIX 40 MG PO DAILY TRAMADOL 50 MG Q8 PO FOR PAIN ACTIVITY TOLERATED CALL DR Philly POWERS OR GO TO THE EMERGENCY ROOM IF SYMPTOM RETURN OR WORSENING
--- NOTE | 2018-02-15 14:38 | VASCLAB ---
Date of service: 02/13/2018 PROCEDURE: Lower Extremity Venous Duplex Exam. HISTORY: r/o dvt PRIORS: None. TECHNIQUE: Bilateral common femoral, femoral, popliteal and posterior tibial, peroneal and great saphenous veins were evaluated. Flow was assessed with color Doppler, compressibility, assessment of phasic flow and augmentation response. Report prepared by Angelina Peoples, TRINA, RVS FINDINGS: RIGHT: 1. Common Femoral Vein: 1.1. Compressibility - Fully compressible: Thrombus - None : Flow - Phasic: Augmentation -Normal: Reflux - None. 2. Femoral Vein: 2.1. Compressibility - Fully compressible: Thrombus - None : Flow - Phasic: Augmentation -Normal: Reflux - None. 3. Popliteal Vein: 3.1. Compressibility - Fully compressible: Thrombus - None : Flow - Phasic: Augmentation -Normal: Reflux - None. 4. Posterior Tibial Vein: 4.1. Compressibility - Fully compressible: Thrombus - None: Flow - Phasic: Augmentation -Normal: Reflux - None. 5. Peroneal Vein: 5.1. Compressibility - Fully compressible: Thrombus - None: Flow - Phasic: Augmentation -Normal: Reflux - None. 6. Great Saphenous Vein: 6.1. Compressibility - Fully compressible: Thrombus - None: Flow - Phasic: Augmentation - Normal: Reflux - None. LEFT: 1. Common Femoral Vein: 1.1. Compressibility - Fully compressible: Thrombus - None: Flow - Phasic: Augmentation -Normal: Reflux - None. 2. Femoral Vein: 2.1. Compressibility - Fully compressible: Thrombus - None: Flow - Phasic: Augmentation -Normal: Reflux - None. 3. Popliteal Vein: 3.1. Compressibility - Fully compressible: Thrombus - None : Flow - Phasic: Augmentation -Normal: Reflux - None. 4. Posterior Tibial Vein: 4.1. Compressibility - Fully compressible: Thrombus - None: Flow - Phasic: Augmentation -Normal: Reflux - None. 5. Peroneal Vein: 5.1. Compressibility - Fully compressible: Thrombus - None: Flow - Phasic: Augmentation -Normal: Reflux - None. 6. Great Saphenous Vein: 6.1. Compressibility - Fully compressible: Thrombus - None: Flow - Phasic: Augmentation - Normal: Reflux - None. OTHER FINDINGS: Right: None significant. Left: None significant. IMPRESSION: Right: No evidence of deep or superficial vein thrombosis of the right lower extremity. Normal valve function noted of the right side. Left: No evidence of deep or superficial vein thrombosis of the left lower extremity. Normal valve function noted of the left side.
--- NOTE | 2018-02-16 16:44 | IP.NPCORE ---
Heart Failure Core Measure - Heart Failure Ejection Fraction: 40 % or Greater PAIGE Inhibitor Prescribed: No Contraindication/Reason for not providing: ARB Beta-Fausto Prescribed: None Contraindication/Reason for not providing: NOT INDICATED BY THE SENIOR ACCOUNTING CLERK Angiotensin II Receptor Fausto Prescribed: Yes AnticoagulationTherapy for Atrial Fibrillation/Atrialflutter: No Contraindication/Reason for not providing: NO HX OF AFIB Aldosterone Antagonist Prescribed: No Contraindication/Reason for not providing: EF IS GREATER THAN 40 Hydralazine Nitrate Prescribed: No Contraindication/Reason for not providing: EF IS GREATER THAN 40 Implantable Cardioverter Defibrillator Therapy: No Contraindication/Reason for not providing: EF IS GREATER THAN 40 Cardiac Resynchronization Therapy Prescribed: No Contraindication/Reason for not providing: EF IS GREATER THAN 40 - Follow up Will be discharged to: Home Follow Up Date (must be within 7 days from discharge): 02/20/18 Follow Up Time: 10:00
== END 2018-02-14 18:45 | disposition home or self-care (01) | DRG 194 ==
LOC: C.ER 18:03 → C.9E 20:41 → C.9I 02-11 07:33 → OBSVTOIN 02-12 19:04 → C.5S 02-13 12:19
PROVIDERS: ADMIT Internal Medicine Nephrology; ATTEND Internal Medicine Nephrology
DX: I11.0 Hypertensive heart disease with heart failure (principal); J44.1 Chronic obstructive pulmonary disease with (acute) exacerbation; I50.33 Acute on chronic diastolic (congestive) heart failure; I25.10 Atherosclerotic heart disease of native coronary artery without angina pectoris; E66.01 Morbid (severe) obesity due to excess calories; F31.9 Bipolar disorder, unspecified; G47.33 Obstructive sleep apnea (adult) (pediatric); Z68.43 Body mass index [BMI] 50.0-59.9, adult; Z87.01 Personal history of pneumonia (recurrent); Z98.891 History of uterine scar from previous surgery

== ENCOUNTER 2018-03-19 17:30 | Observation (INO) | payer MEDICAID, OTHER ==
[2018-03-19 17:30] VITALS: BMI 52.8
[2018-03-19 19:01] LABS: BASO # 0.1 K/uL (0.0-0.2); BASO % 0.9 % (0.0-2.0); EOS # 0.3 K/uL (0.0-0.7); EOS % 3.5 % (0.0-4.0); HEMOGLOBIN 12.7 g/dL (11.0-16.0); LYMPH # 2.3 K/uL (1.0-4.3); LYMPH % 32.4 % (20.0-40.0); MEAN CELL VOLUME 84.3 fL (81.0-99.0); MEAN CORPUSCULAR HEMOGLOBIN 27.5 pg (27.0-31.0); MEAN CORPUSCULAR HGB CONC 32.6 g/dL (33.0-37.0); MONO # 0.4 K/uL (0.0-0.8); MONO % 5.4 % (0.0-10.0); NEUT # 4.2 K/uL (1.8-7.0); NEUT % 57.8 % (50.0-75.0); RBC 4.62 Mil/uL (3.80-5.20); RED CELL DISTRIBUTION WIDTH 13.9 % (11.5-14.5); WHITE BLOOD COUNT 7.3 K/uL (4.8-10.8)
[2018-03-19 19:14] LABS: ALB/GLOB RATIO 1.2 (1.0-2.1); ALBUMIN 4.3 g/dL (3.5-5.0); ALT/SGPT 26 U/L (9-52); AST/SGOT 24 U/L (14-36); BLOOD UREA NITROGEN 15 mg/dL (7-17); GFR NON-AFRICAN AMERICAN > 60
[2018-03-19 19:26] LABS: B-TYPE NATRIURETIC PEPTIDE 131 pg/mL (0-900); CK-MB 0.81 ng/mL (0.0-3.38)
--- NOTE | 2018-03-19 20:22 | C.PDOC ---
History Of Present Illness 52 y/o female, with history of anxiety, hypertension, asthma, and chronic chest pain, is sent to ER by Dr. Mancia for intermittent left breast pain for the past 3 weeks. Patient states pain is under her left breast and across the top of her chest. Patient noticed today that there is more pain under her left breast. Patient admits to not taking her medicine often because she does not like taking it. Denies any fever, cough, chills or recent travel. Patient was admitted last month for similar symptoms. Time Seen by Provider: 03/19/18 18:08 Chief Complaint (Nursing): Chest Pain History Per: Patient History/Exam Limitations: no limitations Onset/Duration Of Symptoms: Days Current Symptoms Are (Timing): Still Present Past Medical History Reviewed: Historical Data, Nursing Documentation, Vital Signs Vital Signs: Last Vital Signs Temp 99 F 03/19/18 17:35 Pulse 68 03/19/18 18:06 Resp 18 03/19/18 17:35 BP 154/88 H 03/19/18 18:06 Pulse Ox 98 03/19/18 18:06 - Medical History PMH: Anxiety, Arthritis, Asthma, Bipolar Disorder, COPD, Depression, HTN, Peripheral Edema, Pneumonia (2016), Sleep Apnea (on CPAP) Denies: Chronic Kidney Disease Surgical History: Hernia Repair, Family History: States: No Known Family Hx - Social History Hx Tobacco Use: No Hx Alcohol Use: No Hx Substance Use: No - Immunization History Hx Tetanus Toxoid Vaccination: No Hx Influenza Vaccination: No Hx Pneumococcal Vaccination: No Review Of Systems Except As Marked, All Systems Reviewed And Found Negative. Constitutional: Negative for: Fever, Chills Cardiovascular: Positive for: Chest Pain Respiratory: Negative for: Cough Musculoskeletal: Positive for: Other (Left breast pain) Physical Exam - Physical Exam Appears: Non-toxic, No Acute Distress, Other (morbidly obese) Skin: Warm, Dry Head: Atraumatic, Normacephalic Eye(s): bilateral: Normal Inspection Oral Mucosa: Moist Neck: Normal ROM, Supple Cardiovascular: Rhythm Regular, No Murmur Respiratory: No Rales, No Rhonchi, No Wheezing, Other (Normal inspiratory effort, Lungs clear to auscultation) Gastrointestinal/Abdominal: Soft, No Tenderness, No Distention Neurological/Psych: Oriented x3, Normal Speech Gait: Steady ED Course And Treatment - Laboratory Results Result Diagrams: 03/19/18 18:58 03/19/18 18:58 ECG Rhythm: Sinus Rhythm (Normal) Interpretation Of ECst degree AV block. Normal QS. Normal axis. No ST elevations or depressions. Rate From EC O2 Sat by Pulse Oximetry: 98 (RA) Pulse Ox Interpretation: Normal Medical Decision Making Medical Decision Making: Plan: --Bloodwork --Chest X-Ray CXR showed no acute disease and no changes since last CXR from 02/10/18. 20:43 -- Patient is now complaining of chest pain. Will give Aspirin and nitroglycerin. 21:00 -- Chest pain relieved but patient is now feeling dizziness after taking nitroglycerin. 21:41 -- Spoke with Dr. Philly Ortiz who agrees to admit patient to [facility]. Disposition Counseled Patient/Family Regarding: Studies Performed, Diagnosis - Disposition Forms: [employer] (Kinyarwanda) - POA Present On Arrival: None - Clinical Impression Clinical Impression: Chest pain - Scribe Statement The provider has reviewed the documentation as recorded by the Lang Krishnamurthy Provider Attestation: All medical record entries made by the Lang were at my direction and personally dictated by me. I have reviewed the chart and agree that the record accurately reflects my personal performance of the history, physical exam, medical decision making, and the department course for this patient. I have also personally directed, reviewed, and agree with the discharge instructions and disposition.
[2018-03-19] MEDS ORDERED: Aspirin 325 mg EC Tablets PO ONE (20:50)
[2018-03-20 04:36] LABS: CK-MB 0.68 ng/mL (0.0-3.38)
[2018-03-20] MEDS: Budesonide 0.25 mg/2 ml Inhal Susp UD INH SCH ×2 (08:45→19:15)
--- NOTE | 2018-03-20 09:38 | RAD ---
Date of service: 03/19/2018 HISTORY: chest pain COMPARISON: No prior. TECHNIQUE: Chest PA and lateral FINDINGS: LUNGS: Mild venous congestion. PLEURA: No significant pleural effusion identified. No pneumothorax apparent. CARDIOVASCULAR: No aortic atherosclerotic calcification present. Normal cardiac size. OSSEOUS STRUCTURES: No significant abnormalities. VISUALIZED UPPER ABDOMEN: Normal. OTHER FINDINGS: None. IMPRESSION: Mild venous congestion.
[2018-03-20] MEDS ORDERED: Fluticasone Nasal 50 mcg/Spray NS SCH (10:00)
[2018-03-20] MEDS: Pantoprazole 40 mg EC Tab PO SCH (10:26)
[2018-03-20] MEDS: Enoxaparin 40 mg Syringe SC SCH (10:26)
--- NOTE | 2018-03-20 11:37 | CP.PCM.CON ---
History of Present Illness - History of Present Illness History of Present Illness: HPI: 52 year old female with following chronic medical problems 1. HTN labile and uncontrolled 2. Diastolic CHF chronic and stable on lasix ;ast echo 02/2018 3. ASHD chronic mild diffuse denies angina. 4. reported non-compliance with medical therapy Presents with sharp CP, L. sided without N/V or associated CHF or diaphoresis No fevers or chills. Patient has multiple admissions every month for the past 1 year. Review of Systems - Review of Systems All systems: reviewed and no additional remarkable complaints except Past Patient History - Infectious Disease Hx of Infectious Diseases: None - Past Medical History & Family History Past Medical History?: Yes - Past Social History Smoking Status: Never Smoked - CARDIAC Hx Hypertension: Yes Hx Peripheral Edema: Yes - PULMONARY Hx Asthma: Yes Hx Chronic Obstructive Pulmonary Disease (COPD): Yes Hx Pneumonia: Yes (2016) Hx Sleep Apnea: Yes (on CPAP) - NEUROLOGICAL Hx Neurological Disorder: No - HEENT Hx HEENT Problems: No - RENAL Hx Chronic Kidney Disease: No - ENDOCRINE/METABOLIC Hx Endocrine Disorders: No - HEMATOLOGICAL/ONCOLOGICAL Hx Blood Disorders: No - INTEGUMENTARY Hx Dermatological Problems: No - MUSCULOSKELETAL/RHEUMATOLOGICAL Hx Arthritis: Yes - GASTROINTESTINAL Hx Gastrointestinal Disorders: No Other/Comment: HERNIA REPAIR 28 years ago - GENITOURINARY/GYNECOLOGICAL Hx Genitourinary Disorders: No - PSYCHIATRIC Hx Anxiety: Yes Hx Bipolar Disorder: Yes Hx Depression: Yes Hx Substance Use: No - SURGICAL HISTORY Hx Surgeries: Yes Hx Section: Yes (x5) Hx Herniorrhaphy: Yes (28 years ago) - ANESTHESIA Hx Anesthesia: Yes Hx Anesthesia Reactions: No Hx Malignant Hyperthermia: No Meds Allergies/Adverse Reactions: Allergies Allergy/AdvReac Type Severity Reaction Status Date / Time No Known Allergies Allergy Verified 03/19/18 17:42 - Medications Medications: Current Medications Amlodipine Besylate (Norvasc) 10 mg PO DAILY [facility] Last Admin: 03/20/18 10:26 Dose: 10 mg Aspirin (Aspirin) 325 mg PO DAILY [facility] Last Admin: 03/20/18 10:26 Dose: 325 mg Budesonide (Pulmicort Respules) 0.25 mg INH RQ12 [facility] Last Admin: 03/20/18 08:45 Dose: 0.25 mg Diphenhydramine HCl (Benadryl) 50 mg PO Q6H [facility] Last Admin: 03/20/18 08:46 Dose: Not Given Enoxaparin Sodium (Lovenox) 40 mg SC DAILY [facility] Last Admin: 03/20/18 10:26 Dose: 40 mg Fluticasone Propionate (Flonase) 1 spr NS DAILY [facility] Furosemide (Lasix) 40 mg PO DAILY [facility] Last Admin: 03/20/18 10:26 Dose: 40 mg Losartan Potassium (Cozaar) 50 mg PO DAILY [facility] Last Admin: 03/20/18 10:26 Dose: 50 mg Montelukast Sodium (Singulair) 10 mg PO DAILY [facility] Last Admin: 03/20/18 10:26 Dose: 10 mg Nitroglycerin (Nitrostat Sl Tab) 0.4 mg SL Q5M PRN PRN Reason: chest pain Last Admin: 03/19/18 20:51 Dose: 0.4 mg Nitroglycerin (Nitrostat Sl Tab) 0.4 mg SL PRN PRN PRN Reason: Shortness of Breath Pantoprazole Sodium (Protonix Ec Tab) 40 mg PO DAILY [facility] Last Admin: 03/20/18 10:26 Dose: 40 mg Rosuvastatin Calcium (Crestor) 10 mg PO HS [facility] Tramadol HCl (Ultram) 50 mg PO Q8 [facility] Last Admin: 03/20/18 07:29 Dose: 50 mg Physical Exam - Constitutional Appears: No Acute Distress - Head Exam Head Exam: ATRAUMATIC, NORMAL INSPECTION, NORMOCEPHALIC - Eye Exam Eye Exam: EOMI, Normal appearance. absent: Scleral icterus - ENT Exam ENT Exam: Mucous Membranes Moist, Normal Oropharynx - Neck Exam Neck exam: Positive for: Full Rom. Negative for: Tenderness, Thyromegaly - Respiratory Exam Respiratory Exam: Clear to Auscultation Bilateral, NORMAL BREATHING PATTERN. absent: Rhonchi, Wheezes - Cardiovascular Exam Cardiovascular Exam: REGULAR RHYTHM, +S1, +S2. absent: +S4, Systolic Murmur - GI/Abdominal Exam GI & Abdominal Exam: Normal Bowel Sounds, Soft. absent: Tenderness - Extremities Exam Extremities exam: Negative for: calf tenderness, normal inspection, pedal edema - Neurological Exam Neurological exam: Alert, CN II-XII Intact, Oriented x3 - Psychiatric Exam Psychiatric exam: Normal Affect, Normal Mood - Skin Skin Exam: Normal Color, Warm Results - Vital Signs Recent Vital Signs: Last Vital Signs Temp 98.3 F 03/20/18 08:52 Pulse 79 03/20/18 08:52 Resp 18 03/20/18 08:52 BP 139/83 03/20/18 10:26 Pulse Ox 100 03/20/18 08:52 - Labs Result Diagrams: 03/19/18 18:58 03/19/18 18:58 Labs: Laboratory Results - last 24 hr 03/19/18 03/19/18 03/20/18 18:58 18:58 04:06 WBC 7.3 RBC 4.62 Hgb 12.7 Hct 38.9 MCV 84.3 MCH 27.5 MCHC 32.6 L RDW 13.9 Plt Count 265 MPV 9.0 Neut % (Auto) 57.8 Lymph % (Auto) 32.4 [place] % (Auto) 5.4 Eos % (Auto) 3.5 Baso % (Auto) 0.9 Neut # (Auto) 4.2 Lymph # (Auto) 2.3 [place] # (Auto) 0.4 Eos # (Auto) 0.3 Baso # (Auto) 0.1 Sodium 140 Potassium 4.0 Chloride 102 Carbon Dioxide 31 H Anion Gap 12 BUN 15 Creatinine 0.5 L Est GFR ( Amer) > 60 Est GFR (Non-Af Amer) > 60 Random Glucose 84 Calcium 9.0 Total Bilirubin 0.8 AST 24 ALT 26 Alkaline Phosphatase 68 Total Creatine Kinase 65 59 CK-MB (Mass) 0.81 0.68 Troponin I < 0.0120 < 0.0120 NT-Pro-B Natriuret Pep 131 Total Protein 7.8 Albumin 4.3 Globulin 3.5 Albumin/Globulin Ratio 1.2 - EKG Data EKG Interpreted by: Myself Assessment & Plan - Assessment and Plan (Free Text) Assessment: CP Atypical, more c/w neuropathic and musculoskeletal/ spasm TN ruled out, EKG no acute ischemic changes Suggest physical therapy, weight loss and stretching exercises No cardiac w/u planned HTN Better controlled on RX whrn she is compliant Cont losartan and amlodipine weight loss, los salt diet cont sleep apnea Rx LIPIDS Cont crestor, LDL goal <130; ideally <100 VEL/obesity Cont sleep apnea RX DVT prophylaxis D/c planning per cardiac - Date & Time Date: 03/20/18 Time: 11:39
--- NOTE | 2018-03-20 18:11 | CP.PCM.HP ---
Past Patient History - Infectious Disease Hx of Infectious Diseases: None - Past Medical History & Family History Past Medical History?: Yes - Past Social History Smoking Status: Never Smoked - CARDIAC Hx Hypertension: Yes Hx Peripheral Edema: Yes - PULMONARY Hx Asthma: Yes Hx Chronic Obstructive Pulmonary Disease (COPD): Yes Hx Pneumonia: Yes (2016) Hx Sleep Apnea: Yes (on CPAP) - NEUROLOGICAL Hx Neurological Disorder: No - HEENT Hx HEENT Problems: No - RENAL Hx Chronic Kidney Disease: No - ENDOCRINE/METABOLIC Hx Endocrine Disorders: No - HEMATOLOGICAL/ONCOLOGICAL Hx Blood Disorders: No - INTEGUMENTARY Hx Dermatological Problems: No - MUSCULOSKELETAL/RHEUMATOLOGICAL Hx Arthritis: Yes - GASTROINTESTINAL Hx Gastrointestinal Disorders: No Other/Comment: HERNIA REPAIR 28 years ago - GENITOURINARY/GYNECOLOGICAL Hx Genitourinary Disorders: No - PSYCHIATRIC Hx Anxiety: Yes Hx Bipolar Disorder: Yes Hx Depression: Yes Hx Substance Use: No - SURGICAL HISTORY Hx Surgeries: Yes Hx Section: Yes (x5) Hx Herniorrhaphy: Yes (28 years ago) - ANESTHESIA Hx Anesthesia: Yes Hx Anesthesia Reactions: No Hx Malignant Hyperthermia: No Meds Allergies/Adverse Reactions: Allergies Allergy/AdvReac Type Severity Reaction Status Date / Time No Known Allergies Allergy Verified 03/19/18 17:42 Physical Exam - Constitutional Appears: Well - Head Exam Head Exam: ATRAUMATIC, NORMAL INSPECTION, NORMOCEPHALIC - Eye Exam Eye Exam: EOMI, Normal appearance, PERRL Pupil Exam: NORMAL ACCOMODATION, PERRL - ENT Exam ENT Exam: Mucous Membranes Moist, Normal Exam - Neck Exam Neck exam: Positive for: Normal Inspection - Respiratory Exam Respiratory Exam: Decreased Breath Sounds - Cardiovascular Exam Cardiovascular Exam: REGULAR RHYTHM, +S1, +S2 - GI/Abdominal Exam GI & Abdominal Exam: Diminished Bowel Sounds, Soft - Rectal Exam Rectal Exam: Deferred Results - Vital Signs Recent Vital Signs: Last Vital Signs Temp 98.3 F 03/20/18 08:52 Pulse 79 03/20/18 08:52 Resp 18 03/20/18 08:52 BP 139/83 03/20/18 10:26 Pulse Ox 100 03/20/18 13:31 - Labs Result Diagrams: 03/19/18 18:58 03/19/18 18:58 Labs: Laboratory Results - last 24 hr 11/11/18 11/11/18 11/12/18 18:58 18:58 04:06 WBC 7.3 RBC 4.62 Hgb 12.7 Hct 38.9 MCV 84.3 MCH 27.5 MCHC 32.6 L RDW 13.9 Plt Count 265 MPV 9.0 Neut % (Auto) 57.8 Lymph % (Auto) 32.4 [place] % (Auto) 5.4 Eos % (Auto) 3.5 Baso % (Auto) 0.9 Neut # (Auto) 4.2 Lymph # (Auto) 2.3 [place] # (Auto) 0.4 Eos # (Auto) 0.3 Baso # (Auto) 0.1 Sodium 140 Potassium 4.0 Chloride 102 Carbon Dioxide 31 H Anion Gap 12 BUN 15 Creatinine 0.5 L Est GFR ( Amer) > 60 Est GFR (Non-Af Amer) > 60 Random Glucose 84 Calcium 9.0 Total Bilirubin 0.8 AST 24 ALT 26 Alkaline Phosphatase 68 Total Creatine Kinase 65 59 CK-MB (Mass) 0.81 0.68 Troponin I < 0.0120 < 0.0120 NT-Pro-B Natriuret Pep 131 Total Protein 7.8 Albumin 4.3 Globulin 3.5 Albumin/Globulin Ratio 1.2
[2018-03-21 01:16] VITALS: RESP 20
[2018-03-21] MEDS: Budesonide 0.25 mg/2 ml Inhal Susp UD INH SCH ×2 (08:00→19:57)
[2018-03-21] MEDS: Pantoprazole 40 mg EC Tab PO SCH (10:24)
[2018-03-21] MEDS: Enoxaparin 40 mg Syringe SC SCH (10:25)
[2018-03-21] MEDS: Fluticasone Nasal 50 mcg/Spray NS SCH (10:51)
--- NOTE | 2018-03-21 18:09 | CP.PCM.PN ---
Subjective - Date & Time of Evaluation Date of Evaluation: 03/21/18 Time of Evaluation: 11:15 - Subjective Subjective: clinically same Objective - Vital Signs/Intake and Output Vital Signs (last 24 hours): Temp Pulse Resp BP Pulse Ox 98.4 F 72 20 99/67 L 95 03/21/18 15:30 03/21/18 15:30 03/21/18 15:30 03/21/18 15:30 03/21/18 15:30 Intake and Output: 03/21/18 03/21/18 06:59 18:59 Intake Total 240 Balance 240 - Medications Medications: Current Medications Amlodipine Besylate (Norvasc) 10 mg PO DAILY [facility] Last Admin: 03/21/18 10:24 Dose: 10 mg Aspirin (Aspirin) 325 mg PO DAILY [facility] Last Admin: 03/21/18 10:24 Dose: 325 mg Budesonide (Pulmicort Respules) 0.25 mg INH RQ12 [facility] Last Admin: 03/21/18 08:00 Dose: 0.25 mg Diphenhydramine HCl (Benadryl) 50 mg PO Q6H PRN PRN Reason: Allergy symptoms Enoxaparin Sodium (Lovenox) 40 mg SC DAILY [facility] Last Admin: 03/21/18 10:25 Dose: 40 mg Fluticasone Propionate (Flonase) 1 spr NS RQD [facility] Last Admin: 03/21/18 10:51 Dose: 1 spr Furosemide (Lasix) 40 mg PO DAILY [facility] Last Admin: 03/21/18 10:24 Dose: 40 mg Losartan Potassium (Cozaar) 50 mg PO DAILY [facility] Last Admin: 03/21/18 10:24 Dose: 50 mg Montelukast Sodium (Singulair) 10 mg PO DAILY [facility] Last Admin: 03/21/18 10:24 Dose: 10 mg Nitroglycerin (Nitrostat Sl Tab) 0.4 mg SL DAILY PRN PRN Reason: FOR SHORTNESS OF BREATH Pantoprazole Sodium (Protonix Ec Tab) 40 mg PO DAILY [facility] Last Admin: 03/21/18 10:24 Dose: 40 mg Rosuvastatin Calcium (Crestor) 10 mg PO HS [facility] Last Admin: 03/20/18 22:13 Dose: 10 mg Tramadol HCl (Ultram) 50 mg PO Q8 [facility] Last Admin: 03/21/18 14:10 Dose: Not Given - Labs Labs: 03/19/18 18:58 03/19/18 18:58 - Constitutional Appears: Well - Head Exam Head Exam: ATRAUMATIC, NORMAL INSPECTION, NORMOCEPHALIC - Eye Exam Eye Exam: EOMI, Normal appearance, PERRL Pupil Exam: NORMAL ACCOMODATION, PERRL - ENT Exam ENT Exam: Mucous Membranes Moist, Normal Exam - Neck Exam Neck Exam: Full ROM, Normal Inspection. absent: Lymphadenopathy - Respiratory Exam Respiratory Exam: Decreased Breath Sounds - Cardiovascular Exam Cardiovascular Exam: REGULAR RHYTHM, +S1, +S2 - GI/Abdominal Exam GI & Abdominal Exam: Soft, Diminished Bowel Sounds - Rectal Exam Rectal Exam: Deferred
[2018-03-22] MEDS: Budesonide 0.25 mg/2 ml Inhal Susp UD INH SCH ×2 (08:00→19:36)
[2018-03-22] MEDS: Fluticasone Nasal 50 mcg/Spray NS SCH (08:01)
[2018-03-22] MEDS: Enoxaparin 40 mg Syringe SC SCH (09:23)
[2018-03-22] MEDS: Pantoprazole 40 mg EC Tab PO SCH (09:23)
--- NOTE | 2018-03-22 15:16 | CP.PCM.PN ---
Subjective - Date & Time of Evaluation Date of Evaluation: 03/22/18 Time of Evaluation: 11:00 - Subjective Subjective: clinically same Objective - Vital Signs/Intake and Output Vital Signs (last 24 hours): Temp Pulse Resp BP Pulse Ox 98.0 F 84 20 125/82 96 03/22/18 08:34 03/22/18 13:13 03/22/18 08:34 03/22/18 13:13 03/22/18 08:34 Intake and Output: 03/22/18 03/22/18 06:59 18:59 Intake Total 360 Balance 360 - Medications Medications: Current Medications Amlodipine Besylate (Norvasc) 10 mg PO DAILY [facility] Last Admin: 03/22/18 09:22 Dose: Not Given Aspirin (Aspirin) 325 mg PO DAILY [facility] Last Admin: 03/22/18 09:23 Dose: 325 mg Budesonide (Pulmicort Respules) 0.25 mg INH RQ12 [facility] Last Admin: 03/22/18 08:00 Dose: 0.25 mg Diphenhydramine HCl (Benadryl) 50 mg PO Q6H PRN PRN Reason: Allergy symptoms Enoxaparin Sodium (Lovenox) 40 mg SC DAILY [facility] Last Admin: 03/22/18 09:23 Dose: 40 mg Fluticasone Propionate (Flonase) 1 spr NS RQD [facility] Last Admin: 03/22/18 08:01 Dose: 1 spr Furosemide (Lasix) 40 mg PO DAILY [facility] Last Admin: 03/22/18 09:22 Dose: Not Given Losartan Potassium (Cozaar) 50 mg PO DAILY [facility] Last Admin: 03/22/18 09:22 Dose: Not Given Montelukast Sodium (Singulair) 10 mg PO DAILY [facility] Last Admin: 03/22/18 09:23 Dose: 10 mg Nitroglycerin (Nitrostat Sl Tab) 0.4 mg SL DAILY PRN PRN Reason: FOR SHORTNESS OF BREATH Pantoprazole Sodium (Protonix Ec Tab) 40 mg PO DAILY [facility] Last Admin: 03/22/18 09:23 Dose: 40 mg Rosuvastatin Calcium (Crestor) 10 mg PO HS [facility] Last Admin: 03/21/18 22:30 Dose: Not Given Tramadol HCl (Ultram) 50 mg PO Q8 [facility] Last Admin: 03/22/18 13:14 Dose: 50 mg - Labs Labs: 03/19/18 18:58 03/19/18 18:58 - Constitutional Appears: Well - Head Exam Head Exam: ATRAUMATIC, NORMAL INSPECTION, NORMOCEPHALIC - Eye Exam Eye Exam: EOMI, Normal appearance, PERRL Pupil Exam: NORMAL ACCOMODATION, PERRL - ENT Exam ENT Exam: Mucous Membranes Moist, Normal Exam - Neck Exam Neck Exam: Full ROM, Normal Inspection. absent: Lymphadenopathy - Respiratory Exam Respiratory Exam: Decreased Breath Sounds - Cardiovascular Exam Cardiovascular Exam: REGULAR RHYTHM, +S1, +S2 - GI/Abdominal Exam GI & Abdominal Exam: Diminished Bowel Sounds - Rectal Exam Rectal Exam: Deferred
[2018-03-23 02:42] VITALS: PULSE 69; TEMP 97.6; O2SAT 97
[2018-03-23] MEDS: Budesonide 0.25 mg/2 ml Inhal Susp UD INH SCH ×2 (08:00)
[2018-03-23] MEDS: Fluticasone Nasal 50 mcg/Spray NS SCH (08:39)
[2018-03-23] MEDS: Pantoprazole 40 mg EC Tab PO SCH (10:00)
[2018-03-23] MEDS: Enoxaparin 40 mg Syringe SC SCH (10:02)
[2018-03-23 10:05] VITALS: BP 125/67
--- NOTE | 2018-03-23 14:18 | CP.PCM.PN ---
Subjective - Date & Time of Evaluation Date of Evaluation: 03/23/18 Time of Evaluation: 13:00 Objective - Vital Signs/Intake and Output Vital Signs (last 24 hours): Temp Pulse Resp BP Pulse Ox 97.6 F 69 20 125/67 97 03/22/18 23:45 03/22/18 23:45 03/22/18 23:45 03/23/18 10:01 03/22/18 23:45 Intake and Output: 03/23/18 03/23/18 06:59 18:59 Intake Total 240 Balance 240 - Medications Medications: Current Medications Amlodipine Besylate (Norvasc) 10 mg PO DAILY [facility] Last Admin: 03/23/18 10:01 Dose: 10 mg Aspirin (Aspirin) 325 mg PO DAILY [facility] Last Admin: 03/23/18 10:00 Dose: 325 mg Budesonide (Pulmicort Respules) 0.25 mg INH RQ12 [facility] Last Admin: 03/23/18 08:00 Dose: Not Given Diphenhydramine HCl (Benadryl) 50 mg PO Q6H PRN PRN Reason: Allergy symptoms Last Admin: 03/22/18 19:17 Dose: 50 mg Enoxaparin Sodium (Lovenox) 40 mg SC DAILY [facility] Last Admin: 03/23/18 10:02 Dose: 40 mg Fluticasone Propionate (Flonase) 1 spr NS RQD [facility] Last Admin: 03/23/18 08:39 Dose: 1 spr Furosemide (Lasix) 40 mg PO DAILY [facility] Last Admin: 03/23/18 10:01 Dose: 40 mg Losartan Potassium (Cozaar) 50 mg PO DAILY [facility] Last Admin: 03/23/18 10:02 Dose: 50 mg Montelukast Sodium (Singulair) 10 mg PO DAILY [facility] Last Admin: 03/23/18 10:01 Dose: 10 mg Nitroglycerin (Nitrostat Sl Tab) 0.4 mg SL DAILY PRN PRN Reason: FOR SHORTNESS OF BREATH Pantoprazole Sodium (Protonix Ec Tab) 40 mg PO DAILY [facility] Last Admin: 03/23/18 10:00 Dose: 40 mg Rosuvastatin Calcium (Crestor) 10 mg PO HS [facility] Last Admin: 03/22/18 23:40 Dose: Not Given Tramadol HCl (Ultram) 50 mg PO Q8 [facility] Last Admin: 03/23/18 13:51 Dose: Not Given - Labs Labs: 03/19/18 18:58 03/19/18 18:58
--- NOTE | 2018-03-23 17:13 | CARD ---
APPROVED REPORT Date of service: 03/19/2018 EKG Measurement Heart [id number] <Conclusion> Sinus rhythm with 1st degree AV block Otherwise normal ECG
== END 2018-03-23 15:34 | disposition home or self-care (01) ==
LOC: C.ER 17:30 → C.9E 21:54 → C.6T 03-20 08:28
PROVIDERS: ADMIT Internal Medicine Nephrology; ATTEND Internal Medicine Nephrology
DX: R07.9 Chest pain, unspecified (principal); I11.0 Hypertensive heart disease with heart failure; I25.10 Atherosclerotic heart disease of native coronary artery without angina pectoris; E66.9 Obesity, unspecified; F31.9 Bipolar disorder, unspecified; G47.30 Sleep apnea, unspecified; J44.9 Chronic obstructive pulmonary disease, unspecified; Z87.01 Personal history of pneumonia (recurrent); Z91.19 Patient's noncompliance with other medical treatment and regimen; Z98.891 History of uterine scar from previous surgery
CPT/HCPCS: 71046; 80053; 82550; 82553; 83880; 84484; 85025; 93005; 94640; 99285; G0378; J1650

== ENCOUNTER 2018-05-09 00:32 | Emergency (ER) | payer MEDICAID, OTHER ==
[2018-05-09 00:48] VITALS: BP 141/83; PULSE 74; RESP 19; TEMP 99.1; O2SAT 96; BMI 53.9
--- NOTE | 2018-05-09 01:38 | C.PDOC ---
History Of Present Illness 52 year old female presents to the ED complaining of bilateral parasternal chest wall discomfort ongoing for 2 weeks. Discomfort is digitally and positionally reducible. Denies any falls or trauma. Patient has a history of prior negative evaluations for chest pain and extensive psychiatry history. Reports she was at [facility] all day visiting brother. Time Seen by Provider: 05/09/18 00:52 Chief Complaint (Nursing): Medical Clearance Past Medical History Vital Signs: Last Vital Signs Temp 99.1 F 05/09/18 00:44 Pulse 74 05/09/18 00:44 Resp 19 05/09/18 00:44 BP 141/83 05/09/18 00:44 Pulse Ox 96 05/09/18 00:44 - Medical History PMH: Anxiety, Arthritis, Asthma, Bipolar Disorder, COPD, Depression, HTN, Peripheral Edema, Pneumonia (2016), Sleep Apnea (on CPAP) Denies: Chronic Kidney Disease Surgical History: Hernia Repair, Family History: States: Unknown Family Hx - Social History Hx Tobacco Use: No Hx Alcohol Use: No Hx Substance Use: No - Immunization History Hx Tetanus Toxoid Vaccination: No Hx Influenza Vaccination: No Hx Pneumococcal Vaccination: No Physical Exam - Physical Exam Appears: Non-toxic, No Acute Distress, Other (morbidly obese black female ) Skin: Warm, Dry, No Rash Head: Normacephalic Eye(s): bilateral: Normal Inspection Neck: Supple, No Other (JVD) Chest: Symmetrical, Tenderness (digitally reproducible tenderness to parasternal chest wall near T3-T4) Cardiovascular: Rhythm Regular Respiratory: Normal Breath Sounds, No Rales, No Rhonchi, No Wheezing Gastrointestinal/Abdominal: Soft, No Tenderness, Other (Obese, globus ) Extremity: No Pedal Edema, Other (morbidly obese b/l lower extremities) Neurological/Psych: Oriented x3, Normal Speech Gait: Steady ED Course And Treatment O2 Sat by Pulse Oximetry: 96 (RA) Pulse Ox Interpretation: Normal Medical Decision Making Medical Decision Making: Plan - EKG - Bloodwork - CXR - Lasix 20mg IVP parasternal chest wall discomfort for 2 weeks extensive h/o anxiety disorder pt did not allow EKG nor labs left ED soon after arrival prob costochondritis no lower ext edema, though ++ obesity of legs. Disposition - Disposition Disposition: ELOPEMENT - ER ONLY Disposition Time: 01:00 Condition: GOOD Forms: [employer] (Italian) - Clinical Impression Clinical Impression: Chest wall discomfort - Scribe Statement The provider has reviewed the documentation as recorded by the Scribe Lizzie Corea All medical record entries made by the Scribe were at my direction and personally dictated by me. I have reviewed the chart and agree that the record accurately reflects my personal performance of the history, physical exam, medical decision making, and the department course for this patient. I have also personally directed, reviewed, and agree with the discharge instructions and disposition.
== END 2018-05-09 00:52 | disposition left against medical advice (07) ==
LOC: C.ER 00:32
DX: R07.89 Other chest pain (principal); I10 Essential (primary) hypertension; J44.9 Chronic obstructive pulmonary disease, unspecified; F31.9 Bipolar disorder, unspecified

== ENCOUNTER 2018-05-23 11:15 | Emergency (ER) | payer MEDICAID, OTHER ==
[2018-05-23 11:16] VITALS: BMI 53.9
[2018-05-23 11:20] VITALS: PULSE 81; RESP 18; TEMP 98.1
[2018-05-23 11:53] LABS: SQUAMOUS EPITHIAL 2 /hpf (0-5); URINE BILIRUBIN NEGATIVE (NEGATIVE); URINE BLOOD NEGATIVE (NEGATIVE); URINE CLARITY Clear (Clear); URINE COLOR Yellow (YELLOW); URINE GLUCOSE (UA) NORMAL (Normal); URINE LEUKOCYTE ESTERASE NEG Leu/uL (Negative); URINE PROTEIN NEGATIVE (NEGATIVE); URINE UROBILINOGEN NORMAL mg/dL (0.2-1.0)
--- NOTE | 2018-05-23 12:03 | C.PDOC ---
History Of Present Illness 52 year old female presents to the ED complaining of lower abdominal pain, points to suprapubic area, for the past 2 days. She has no associated nausea, vomiting, diarrhea, or constipation. Last bowel movement was today. Patient admits to having some urinary frequency, but notes that she takes Lasix and attributes this to being a side effect. Denies fever or chills. Reports she tried taking motrin without relief. Time Seen by Provider: 05/23/18 11:25 Chief Complaint (Nursing): Abdominal Pain History Per: Patient History/Exam Limitations: no limitations Onset/Duration Of Symptoms: Days (x 2) Current Symptoms Are (Timing): Still Present Location Of Pain/Discomfort: Suprapubic Quality Of Discomfort: "Pain" Past Medical History Reviewed: Historical Data, Nursing Documentation, Vital Signs Vital Signs: Last Vital Signs Temp 98.1 F 05/23/18 11:17 Pulse 81 05/23/18 11:17 Resp 18 05/23/18 11:17 BP 111/77 05/23/18 11:17 Pulse Ox 95 05/23/18 11:17 - Medical History PMH: Anxiety, Arthritis, Asthma, Bipolar Disorder, COPD, Depression, HTN, Peripheral Edema, Pneumonia (2016), Sleep Apnea (on CPAP) Denies: Chronic Kidney Disease Surgical History: Hernia Repair, Family History: States: Unknown Family Hx - Social History Hx Tobacco Use: No Hx Alcohol Use: No Hx Substance Use: No - Immunization History Hx Tetanus Toxoid Vaccination: No Hx Influenza Vaccination: No Hx Pneumococcal Vaccination: No Review Of Systems Constitutional: Negative for: Fever, Chills Gastrointestinal: Positive for: Abdominal Pain. Negative for: Nausea, Vomiting, Diarrhea, Constipation Genitourinary: Positive for: Frequency. Negative for: Dysuria, Hematuria Musculoskeletal: Negative for: Back Pain Physical Exam - Physical Exam Appears: Well, Non-toxic, No Acute Distress Skin: Warm, Dry, No Rash Head: Atraumatic, Normacephalic Eye(s): bilateral: Normal Inspection Oral Mucosa: Moist Neck: Normal ROM Chest: Symmetrical Cardiovascular: Rhythm Regular, No Murmur Respiratory: Normal Breath Sounds, No Rales, No Rhonchi, No Wheezing Gastrointestinal/Abdominal: Bowel Sounds (active), Soft, No Tenderness, No Guarding Back: No CVA Tenderness Extremity: Bilateral: Atraumatic, Normal Color And Temperature, Normal ROM Neurological/Psych: Oriented x3, Normal Speech Gait: Steady ED Course And Treatment - Laboratory Results Lab Results: Urine Color Yellow (YELLOW) 05/23/18 11:46 Urine Clarity Clear (Clear) 05/23/18 11:46 Urine pH 6.0 (5.0-8.0) 05/23/18 11:46 Ur Specific [place] 1.012 (1.003-1.030) 05/23/18 11:46 Urine Protein Negative mg/dL (NEGATIVE) 05/23/18 11:46 Urine Glucose (UA) Normal mg/dL (Normal) 05/23/18 11:46 Urine Ketones Negative mg/dL (NEGATIVE) 05/23/18 11:46 Urine Blood Negative (NEGATIVE) 05/23/18 11:46 Urine Nitrate Negative (NEGATIVE) 05/23/18 11:46 Urine Bilirubin Negative (NEGATIVE) 05/23/18 11:46 Urine Urobilinogen Normal mg/dL (0.2-1.0) 05/23/18 11:46 Ur Leukocyte Esterase Neg Micheal/uL (Negative) 05/23/18 11:46 Urine WBC (Auto) < 1 /hpf (0-5) 05/23/18 11:46 Ur Squamous Epith Cells 2 /hpf (0-5) 05/23/18 11:46 O2 Sat by Pulse Oximetry: 95 (no room air) Pulse Ox Interpretation: Normal Medical Decision Making Medical Decision Making: Impression: abd pain, no tenderness on exam Plan: UA Progress: UA reviewed by me and WNL. On re-eval the patient was sitting upright in no distress, playing game on her cellphone. She has no fever and stable vital signs. Abdomen remained soft and nontender. No clinical signs of obstruction or surgical pathology. Plan to discharge patient have her follow up with PCP or clinic. Disposition Counseled Patient/Family Regarding: Diagnosis, Need For Followup - Disposition Disposition: HOME/ ROUTINE Disposition Time: 12:02 Condition: STABLE Additional Instructions: Your urine results will negative. Recommend follow up with your doctor for further evaluation. Take pain relievers as needed Return to ER if pain persists or worsens Instructions: Acute Abdomen (Belly Pain) Forms: [employer] (Russian) - POA Present On Arrival: None - Clinical Impression Clinical Impression: Lower abdominal pain - PA / OUTREACH ASSISTANT / Resident Statement MD/DO has reviewed & agrees with the documentation as recorded. - Scribe Statement The provider has reviewed the documentation as recorded by the Scribe Mariah Franklin All medical record entries made by the Sarahibe were at my direction and personally dictated by me. I have reviewed the chart and agree that the record accurately reflects my personal performance of the history, physical exam, medical decision making, and the department course for this patient. I have also personally directed, reviewed, and agree with the discharge instructions and disposition.
[2018-05-23 12:38] VITALS: BP 137/83
[2018-05-23 13:04] VITALS: O2SAT 95
== END 2018-05-23 12:38 | disposition home or self-care (01) ==
LOC: C.ER 11:15
DX: R10.30 Lower abdominal pain, unspecified (principal); I10 Essential (primary) hypertension

== ENCOUNTER 2018-06-05 17:26 | Emergency (ER) | payer MEDICAID, OTHER ==
[2018-06-05 17:27] VITALS: BMI 53.9
[2018-06-05 17:35] VITALS: RESP 20
--- NOTE | 2018-06-05 19:09 | C.PDOC ---
History Of Present Illness 52 year old female presents to the ED c/o her uterus hurting and right ankle pain for the past 4-5 days. Patient denies fever, chills, nausea, vomit, diarrhea, back pain, dysuria, hematuria, vaginal bleeding, vaginal discharge. Time Seen by Provider: 06/05/18 19:09 Chief Complaint (Nursing): High Blood Pressure History Per: Patient History/Exam Limitations: no limitations Onset/Duration Of Symptoms: Days (4-5) Current Symptoms Are (Timing): Still Present Recent travel outside of the [place] States: No Additional History Per: Patient Past Medical History Reviewed: Historical Data, Nursing Documentation, Vital Signs Vital Signs: Last Vital Signs Temp 98.3 F 06/05/18 17:33 Pulse 77 06/05/18 17:33 Resp 20 06/05/18 17:33 BP 142/85 06/05/18 17:33 Pulse Ox 98 06/05/18 17:33 - Medical History PMH: Anxiety, Arthritis, Asthma, Bipolar Disorder, COPD, Depression, HTN, Pe ripheral Edema, Pneumonia (2016), Sleep Apnea (on CPAP) Denies: Chronic Kidney Disease Surgical History: Hernia Repair, Family History: States: Unknown Family Hx - Social History Hx Tobacco Use: No Hx Alcohol Use: No Hx Substance Use: No - Immunization History Hx Tetanus Toxoid Vaccination: No Hx Influenza Vaccination: No Hx Pneumococcal Vaccination: No Review Of Systems Constitutional: Negative for: Fever, Chills Cardiovascular: Negative for: Chest Pain Respiratory: Negative for: Shortness of Breath Gastrointestinal: Positive for: Abdominal Pain. Negative for: Nausea, Vomiting Genitourinary: Negative for: Dysuria, Hematuria Musculoskeletal: Positive for: Foot Pain Skin: Negative for: Rash Neurological: Negative for: Weakness, Numbness, Headache Physical Exam - Physical Exam Appears: Non-toxic, No Acute Distress, Other (morbidly obese) Skin: Warm, Dry Head: Normacephalic Eye(s): bilateral: Normal Inspection Neck: Supple Chest: Symmetrical Cardiovascular: Rhythm Regular Respiratory: No Rales, No Rhonchi, No Wheezing Gastrointestinal/Abdominal: Soft, No Tenderness, No Guarding, No Rebound, Other (morbidly obese) Extremity: Tenderness (right ankle medial aspect), Capillary Refill (< 2 seconds) Extremity: Bilateral: Atraumatic, Normal Color And Temperature, Normal ROM Pulses: Left Dorsalis Pedis: Normal, Right Dorsalis Pedis: Normal Neurological/Psych: Oriented x3, Normal Speech, Normal Cognition Gait: Steady ED Course And Treatment - Laboratory Results Result Diagrams: 06/05/18 19:48 06/05/18 19:48 O2 Sat by Pulse Oximetry: 98 (ON RA) Pulse Ox Interpretation: Normal - CT Scan/US CT abd/pelvis Other Rad Studies (CT/US): Read By Radiologist, Radiology Report Reviewed CT/US Interpretation: EXAM: CT Abdomen and Pelvis with IV contrast. CLINICAL HISTORY: PELVIC PAIN. TECHNIQUE: Axial computed tomography images of the a bdomen and pelvis with intravenous contrast. CONTRAST: With intravenous contrast. Oral contrast was not utilized. COMPARISON: None provided. FINDINGS: LUNG BASES: The lung bases appear clear. No pleural effusions are seen. LIVER: Unremarkable. GALLBLADDER AND BILE DUCTS: The gallbladder a ppears within normal limits. No radioopaque gallstones are seen. No biliary ductal dilatation is evident. PANCREAS: Unremarkable. SPLEEN: Unremarkable. ADRENAL GLANDS: Unremarkable. KIDNEYS, URETERS, AND BLADDER: The kidneys appear within normal limits. There is no hydronephrosis or hydroureter. No urinary calculi are seen. STOMACH AND BOWEL: Thick walled fluid filled duodenum and loops of jejunum as well as ileum compatible with enteritis. Infectious and inflammatory etiologies are considered. Consider consultation with GI service. APPENDIX: No evidence of acute appendicitis on CT examination. PERITONEUM: No free fluid. No free air. There is apparent diffuse haziness of the mesenteric fat which could indicate mesenteritis. LYMPH NODES: No lymphadenopathy is evident. REPRODUCTIVE: The uterus appears enlarged, somewhat heterogeneous in density and demonstrating mildly lobulated contours. These findings are cmpatible with uterine fibroids. Correlation with TV pelvic ultrasound evaluation could be considered. VASCULATURE: No evidence of abdominal aortic aneurysm. BONES: No aggressive appearing osseous lesion. No acute osseous pathology evident. There is vacuum disc phenomenon identified at T9-10 and T12-L1 consistent with some degenerative disc disease. IMPRESSION: 1. Enteritis as above. Consider consultation with GI service. 2. Fibroid uterus. Correlation with TV pelvic ultrasound evaluation could be considered. . Electronically signed on Jun 05, 2018 10:20:17 PM EST by: Jose Soriano M.D., RADHA Certified By ABR & CBCCT. Fellowship Trained MRI and CT Specialist CT extrem Other Rad Studies (CT/US): Read By Radiologist, Radiology Report Reviewed CT/US Interpretation: EXAM: CT Ankle, right, without IV contrast. CLINICAL HISTORY: RIGHT ANKLE PAIN. TECHNIQUE: Axial computed tomography images of the right ankle without intravenous contrast. 0.00 mGy-cm. CONTRAST: Without. COMPARISON: None provided. FINDINGS: BONES: No acute fracture is evident. No aggressive appearing osseous lesion. No periosteal reaction evident. JOINTS: Mild degenerative changes about the ankle including mild superior and inferior calcaneal spurring. No evidence for acute fracture or dislocation about the right ankle. SOFT TISSUES: No radiopaque foreign body is seen. No soft tissue fluid collection. IMPRESSION: 1. Mild degenerative changes about the ankle including mild superior and inferior calcaneal spurring. 2. No evidence for acute fracture or dislocation about the right ankle. . Electronically signed on Jun 05, 2018 10:20:32 PM EST by: Jose Soriano M.D., RADHA Certified By ABR & CBCCT. Fellowship Trained MRI and CT Specialist Progress Note: Plan: - Labs. - UA. - CT abd/pelvis. - CT lower extremity Reevaluation Time: 22:25 Reassessment Condition: Improved Medical Decision Making Medical Decision Making: Upon provider reevaluation patient is feeling better, is medically stable, and requires no further treatment in the ED at this time. Patient will be discharged home with Rx for tramadol . Counseling was provided and all questions were answered regarding diagnosis and need for follow up withdr longoria. There is agreement to discharge plan. Return if symptoms persist or worsen. Disposition Counseled Patient/Family Regarding: Studies Performed, Diagnosis, Need For Followup, Rx Given - Disposition Referrals: Nayan Longoria APN [Non-Staff] - Disposition: HOME/ ROUTINE Disposition Time: 19:09 Condition: FAIR Additional Instructions: Please return if symptoms recur Prescriptions: traMADol [Ultram] 50 mg PO TID PRN #15 tab PRN Reason: Pain, Severe (8-10) Instructions: Uterine Fibroids (DC), Ankle Sprain (DC) Forms: [email or web address] (Singaporean) - Clinical Impression Clinical Impression: Fibroid uterus, Ankle pain, right - Scribe Statement The provider has reviewed the documentation as recorded by the Scribe Satnam Yuan All medical record entries made by the Scribe were at my direction and personally dictated by me. I have reviewed the chart and agree that the record accurately reflects my personal performance of the history, physical exam, medical decision making, and the department course for this patient. I have also personally directed, reviewed, and agree with the discharge instructions and disposition.
[2018-06-05] MEDS ORDERED: Iodixanol 320 MG/ML 100 ML BOTTLE IV ONE (20:05)
[2018-06-05 20:10] LABS: BASO # 0.1 K/uL (0.0-0.2); BASO % 1.2 % (0.0-2.0); EOS # 0.3 K/uL (0.0-0.7); EOS % 4.3 % (0.0-4.0); HEMOGLOBIN 12.9 g/dL (11.0-16.0); LYMPH # 2.1 K/uL (1.0-4.3); MEAN CELL VOLUME 86.4 fL (81.0-99.0); MEAN CORPUSCULAR HEMOGLOBIN 27.9 pg (27.0-31.0); MEAN CORPUSCULAR HGB CONC 32.4 g/dL (33.0-37.0); MEAN PLATELET VOLUME 8.7 fL (7.2-11.7); MONO # 0.4 K/uL (0.0-0.8); MONO % 5.8 % (0.0-10.0); NEUT # 3.3 K/uL (1.8-7.0); NEUT % 53.7 % (50.0-75.0); NRBC % 0.1 % (0.0-2.0); RBC 4.6 Mil/uL (3.80-5.20); RED CELL DISTRIBUTION WIDTH 14.5 % (11.5-14.5); WHITE BLOOD COUNT 6.1 K/uL (4.8-10.8)
[2018-06-05 20:15] LABS: HCG,QUALITATIVE URINE NEGATIVE (NEGATIVE)
[2018-06-05 20:18] LABS: ALB/GLOB RATIO 1.4 (1.0-2.1); ALBUMIN 4.4 g/dL (3.5-5.0); ALT/SGPT 17 U/L (9-52); AST/SGOT 30 U/L (14-36); BLOOD UREA NITROGEN 10 mg/dL (7-17); GFR NON-AFRICAN AMERICAN > 60; LIPASE 91 U/L (23-300)
[2018-06-05 20:22] LABS: SQUAMOUS EPITHIAL < 1 /hpf (0-5); URINE BILIRUBIN NEGATIVE (NEGATIVE); URINE BLOOD NEGATIVE (NEGATIVE); URINE CLARITY Clear (Clear); URINE COLOR Straw (YELLOW); URINE GLUCOSE (UA) NORMAL (Normal); URINE LEUKOCYTE ESTERASE NEG Leu/uL (Negative); URINE PROTEIN NEGATIVE (NEGATIVE); URINE UROBILINOGEN NORMAL mg/dL (0.2-1.0)
[2018-06-05 20:23] LABS: INR 1.2; PROTHROMBIN TIME 12.7 SECONDS (9.7-12.2)
[2018-06-05 22:55] VITALS: BP 128/81; PULSE 79; TEMP 98.6; O2SAT 97
--- NOTE | 2018-06-06 10:53 | CT ---
CT right ankle HISTORY: Ankle pain. COMPARISON: None available. TECHNIQUE: Multiple contiguous axial images were performed through the right ankle without the use of intravenous contrast. Subsequently, sagittal and coronal reformatted images were obtained. This CT exam was performed using one or more of the following dose reduction techniques: Automated exposure control, adjustment of the mA and/or kV according to patient size, and/or use of iterative reconstruction technique. Findings: Linear interrupted radiopaque density measuring up to 2 centimeters in total best seen on series 602, images 54-57 seen at the medial aspect of the mid calcaneus, of uncertain clinical etiology. This may represent calcification versus postsurgical debris versus foreign body versus additional etiology. Clinical correlation. No evidence of acute displaced fracture or dislocation. Degenerative changes including dorsal calcaneal spurring. Dorsal calcaneal spurring. Degenerative changes at the talonavicular joint space. Impression: 1. Linear interrupted radiopaque density measuring up to 2 centimeters in total best seen on series 602, images 54-57 seen at the medial aspect of the mid calcaneus, of uncertain clinical etiology. This may represent calcification versus postsurgical debris versus foreign body versus additional etiology. Clinical correlation. 2. No evidence of acute displaced fracture or dislocation. 3. Degenerative changes including dorsal calcaneal spurring. If pain persists, consider MRI. A preliminary report was generated at 10:20 p.m. on 06/05/[address] Jose Soriano from [facility]. Please note this case was placed in the PA review folder.
--- NOTE | 2018-06-06 14:03 | CT ---
Date of service: 06/05/2018 PROCEDURE: CT Abdomen and Pelvis with contrast HISTORY: abd pain , uterine pain COMPARISON: None available TECHNIQUE: Contrast dose: 100 mL Visipaque 320 IV Radiation dose: Total exam DLP = 1073.6 mGy-cm. This CT exam was performed using one or more of the following dose reduction techniques: Automated exposure control, adjustment of the mA and/or kV according to patient size, and/or use of iterative reconstruction technique. FINDINGS: LOWER THORAX: No visible consolidation, pleural effusion, or pneumothorax. LIVER: Unremarkable. GALLBLADDER AND BILE DUCTS: Unremarkable. PANCREAS: Unremarkable. SPLEEN: Unremarkable. ADRENALS: Unremarkable. KIDNEYS AND URETERS: The kidneys enhance symmetrically. No hydronephrosis or obstructing calculus identified. VASCULATURE: No aortic aneurysm. No atherosclerotic calcification or mural plaque present. BOWEL: Stomach is nondistended. Lack of oral contrast limits evaluation for bowel pathology. Bowel loops appear within normal limits of caliber without evidence of obstruction. APPENDIX: No secondary signs of acute appendicitis. PERITONEUM: No significant free fluid. No definite free air. LYMPH NODES: No bulky adenopathy identified. BLADDER: Distended urinary bladder appears otherwise unremarkable. REPRODUCTIVE: Heterogeneous lobulated enlarged uterus consistent with fibroids. BONES: No acute osseous abnormality is detected. OTHER FINDINGS: None. IMPRESSION: Heterogeneous lobulated enlarged uterus consistent with fibroids. Additional incidental findings as above. Preliminary impression was provided by [employer].
== END 2018-06-05 22:54 | disposition home or self-care (01) ==
LOC: C.ER 17:26
DX: D25.9 Leiomyoma of uterus, unspecified (principal); M25.571 Pain in right ankle and joints of right foot
CPT/HCPCS: 73700; 74177; 80053; 81001; 83690; 84703; 85025; 85610; 85730; 99284; Q9967

== ENCOUNTER 2018-06-24 10:04 | Observation (INO) | payer OTHER ==
[2018-06-24 10:05] VITALS: BMI 53.9
--- NOTE | 2018-06-24 10:59 | C.PDOC ---
Time Seen by Provider: 06/24/18 10:19 Chief Complaint (Nursing): Chest Pain Past Medical History Vital Signs: Last Vital Signs Temp 98.2 F 06/24/18 10:06 Pulse 77 06/24/18 10:06 Resp 14 06/24/18 10:06 BP 126/57 L 06/24/18 10:06 Pulse Ox 98 06/24/18 10:06 - Medical History PMH: Anxiety, Arthritis, Asthma, Bipolar Disorder, COPD, Depression, HTN, Peripheral Edema, Pneumonia (2016), Sleep Apnea (on CPAP) Denies: Chronic Kidney Disease Surgical History: Hernia Repair, Family History: States: Unknown Family Hx - Social History Hx Tobacco Use: No Hx Alcohol Use: No Hx Substance Use: No - Immunization History Hx Tetanus Toxoid Vaccination: No Hx Influenza Vaccination: No Hx Pneumococcal Vaccination: No ED Course And Treatment O2 Sat by Pulse Oximetry: 98 Disposition - Disposition
[2018-06-24 11:06] LABS: SQUAMOUS EPITHIAL 1 /hpf (0-5); URINE BILIRUBIN NEGATIVE (NEGATIVE); URINE BLOOD NEGATIVE (NEGATIVE); URINE CLARITY Clear (Clear); URINE COLOR Straw (YELLOW); URINE GLUCOSE (UA) NORMAL (Normal); URINE LEUKOCYTE ESTERASE NEG Leu/uL (Negative); URINE PROTEIN NEGATIVE (NEGATIVE); URINE UROBILINOGEN NORMAL mg/dL (0.2-1.0)
[2018-06-24 11:09] LABS: BASO # 0.1 K/uL (0.0-0.2); BASO % 1.1 % (0.0-2.0); EOS # 0.2 K/uL (0.0-0.7); EOS % 3.6 % (0.0-4.0); HEMOGLOBIN 13.5 g/dL (11.0-16.0); LYMPH # 1.9 K/uL (1.0-4.3); LYMPH % 32.3 % (20.0-40.0); MEAN CELL VOLUME 86.8 fL (81.0-99.0); MEAN CORPUSCULAR HEMOGLOBIN 28.4 pg (27.0-31.0); MEAN CORPUSCULAR HGB CONC 32.7 g/dL (33.0-37.0); MEAN PLATELET VOLUME 8.9 fL (7.2-11.7); MONO # 0.4 K/uL (0.0-0.8); MONO % 6.3 % (0.0-10.0); NEUT # 3.3 K/uL (1.8-7.0); NEUT % 56.7 % (50.0-75.0); NRBC % 0.1 % (0.0-2.0); RBC 4.76 Mil/uL (3.80-5.20); RED CELL DISTRIBUTION WIDTH 14.3 % (11.5-14.5); WHITE BLOOD COUNT 5.9 K/uL (4.8-10.8)
--- NOTE | 2018-06-24 11:15 | C.PDOC ---
History Of Present Illness 52 y/o female pt with hx of psychiatric disorders, COPD, questionable CAD with HTN presents to the ER c/o upper right and lower left breast chest pain for x3 days. Chest pain was worse with exertion today which prompted her to visit the ER. Pt reports she had received a stress test and catheterization, but results were unclear. Pt also note she has prescription for nitroglycerin, but has not tried it with her current chest pain because it makes her feel light headed. Pt denies diaphoresis and SOB. Time Seen by Provider: 06/24/18 10:19 Chief Complaint (Nursing): Chest Pain History Per: Patient History/Exam Limitations: no limitations Onset/Duration Of Symptoms: Days (x3) Current Symptoms Are (Timing): Still Present Past Medical History Reviewed: Historical Data, Nursing Documentation, Vital Signs Vital Signs: Last Vital Signs Temp 98.2 F 06/24/18 10:06 Pulse 77 06/24/18 10:06 Resp 14 06/24/18 10:06 BP 126/57 L 06/24/18 10:06 Pulse Ox 98 06/24/18 10:06 - Medical History PMH: Anxiety, Arthritis, Asthma, Bipolar Disorder, COPD, Depression, HTN, Peripheral Edema, Pneumonia (2016), Sleep Apnea (on CPAP) Surgical History: Hernia Repair, Family History: States: Unknown Family Hx - Social History Hx Tobacco Use: No Hx Alcohol Use: No Hx Substance Use: No - Immunization History Hx Tetanus Toxoid Vaccination: No Hx Influenza Vaccination: No Hx Pneumococcal Vaccination: No Review Of Systems Constitutional: Negative for: Sweats Cardiovascular: Positive for: Chest Pain Respiratory: Negative for: Shortness of Breath Physical Exam - Physical Exam Appears: Non-toxic, No Acute Distress Skin: Warm, Dry Head: Normacephalic Eye(s): bilateral: PERRL, EOMI Neck: Supple Chest: Symmetrical, No Deformity, Tenderness (reproducible tenderness right upper chest wall and left lower breast ) Cardiovascular: Rhythm Regular, No Murmur Respiratory: Normal Breath Sounds, No Rales, No Rhonchi, No Wheezing Gastrointestinal/Abdominal: Soft, No Tenderness Back: No CVA Tenderness Neurological/Psych: Oriented x3, Normal Speech ED Course And Treatment - Laboratory Results Result Diagrams: 06/24/18 10:55 06/24/18 10:55 ECG: Interpreted By Me, Viewed By Me ECG Rhythm: Sinus Rhythm Interpretation Of ECG: sinus rhythm with 1st degree AV block. Nonspecific ST abnormality. ST depression. AVF on lateral lead. EKG changes from 03/19/2018: no ST depression prior. Rate From EC O2 Sat by Pulse Oximetry: 98 (RA) Pulse Ox Interpretation: Normal Medical Decision Making Medical Decision Making: Plans: -- Chem labs -- blood work -- EKG Troponin results are negative Discuss case with Dr. Mahesh Ortiz. Pt will be admitted to [facility] at his service. Disposition Discussed With : Nithin Ortiz Doctor Will See Patient In The: Hospital - Disposition Disposition: HOSPITALIZED Disposition Time: 12:47 Forms: [employer] (Nepali) - Clinical Impression Clinical Impression: Chest pain, Acute electrocardiogram changes - PA / MANUFACTURER / Resident Statement MD/ has reviewed & agrees with the documentation as recorded. - Scribe Statement The provider has reviewed the documentation as recorded by the Scribhannah Quezada Do All medical record entries made by the Scribe were at my direction and personally dictated by me. I have reviewed the chart and agree that the record accurately reflects my personal performance of the history, physical exam, medical decision making, and the department course for this patient. I have also personally directed, reviewed, and agree with the discharge instructions and disposition.
[2018-06-24 11:25] LABS: ALB/GLOB RATIO 1.2 (1.0-2.1); ALBUMIN 4.6 g/dL (3.5-5.0); ALT/SGPT 17 U/L (9-52); AST/SGOT 23 U/L (14-36); BLOOD UREA NITROGEN 12 mg/dL (7-17); CALCIUM 9.1 mg/dl (8.6-10.4); GFR NON-AFRICAN AMERICAN > 60
[2018-06-24] MEDS ORDERED: Albuterol-Ipratrop 3 mg / 0.5 (3 ml) UD INH PRN (13:44)
[2018-06-24 14:06] VITALS: RESP 20
--- NOTE | 2018-06-24 17:20 | RAD ---
Date of service: 06/24/2018 HISTORY: left chest pain COMPARISON: Comparison is made with 03/19/2018 TECHNIQUE: Chest PA and lateral FINDINGS: LUNGS: No evidence of new infiltrate or consolidation in the lungs. PLEURA: No significant pleural effusion identified. No pneumothorax apparent. CARDIOVASCULAR: No aortic atherosclerotic calcification present. Normal cardiac size. No pulmonary vascular congestion. OSSEOUS STRUCTURES: No significant abnormalities. VISUALIZED UPPER ABDOMEN: Normal. OTHER FINDINGS: None. IMPRESSION: No active disease.
--- NOTE | 2018-06-24 18:31 | CP.PCM.HP ---
Past Patient History - Infectious Disease Hx of Infectious Diseases: None - Past Medical History & Family History Past Medical History?: Yes - Past Social History Smoking Status: Never Smoked - CARDIAC Hx Hypertension: Yes Hx Peripheral Edema: Yes - PULMONARY Hx Asthma: Yes Hx Chronic Obstructive Pulmonary Disease (COPD): Yes Hx Pneumonia: Yes (2016) Hx Sleep Apnea: Yes (on CPAP) - NEUROLOGICAL Hx Neurological Disorder: No - HEENT Hx HEENT Problems: No - RENAL Hx Chronic Kidney Disease: No - ENDOCRINE/METABOLIC Hx Endocrine Disorders: No - HEMATOLOGICAL/ONCOLOGICAL Hx Blood Disorders: No - INTEGUMENTARY Hx Dermatological Problems: No - MUSCULOSKELETAL/RHEUMATOLOGICAL Hx Arthritis: Yes - GASTROINTESTINAL Hx Gastrointestinal Disorders: No Other/Comment: HERNIA REPAIR 28 years ago - GENITOURINARY/GYNECOLOGICAL Hx Genitourinary Disorders: No - PSYCHIATRIC Hx Anxiety: Yes Hx Bipolar Disorder: Yes Hx Depression: Yes Hx Substance Use: No - SURGICAL HISTORY Hx Surgeries: Yes Hx Section: Yes (x5) Hx Herniorrhaphy: Yes (28 years ago) - ANESTHESIA Hx Anesthesia: Yes Hx Anesthesia Reactions: No Hx Malignant Hyperthermia: No Meds Allergies/Adverse Reactions: Allergies Allergy/AdvReac Type Severity Reaction Status Date / Time No Known Allergies Allergy Verified 06/24/18 10:10 Physical Exam - Constitutional Appears: Well - Head Exam Head Exam: ATRAUMATIC, NORMAL INSPECTION, NORMOCEPHALIC - Eye Exam Eye Exam: EOMI, Normal appearance, PERRL Pupil Exam: NORMAL ACCOMODATION, PERRL - ENT Exam ENT Exam: Mucous Membranes Moist, Normal Exam - Neck Exam Neck exam: Positive for: Normal Inspection - Respiratory Exam Respiratory Exam: Decreased Breath Sounds - Cardiovascular Exam Cardiovascular Exam: REGULAR RHYTHM, +S1, +S2 - GI/Abdominal Exam GI & Abdominal Exam: Diminished Bowel Sounds, Soft - Rectal Exam Rectal Exam: Deferred Results - Vital Signs Recent Vital Signs: Last Vital Signs Temp 97.8 F 06/24/18 16:34 Pulse 78 06/24/18 16:34 Resp 20 06/24/18 16:34 BP 116/77 06/24/18 16:34 Pulse Ox 96 06/24/18 16:34 - Labs Result Diagrams: 06/24/18 10:55 06/24/18 10:55 Labs: Laboratory Results - last 24 hr 06/24/18 06/24/18 06/24/18 10:55 10:55 10:55 WBC 5.9 RBC 4.76 Hgb 13.5 Hct 41.3 MCV 86.8 MCH 28.4 MCHC 32.7 L RDW 14.3 Plt Count 326 MPV 8.9 Neut % (Auto) 56.7 Lymph % (Auto) 32.3 [place] % (Auto) 6.3 Eos % (Auto) 3.6 Baso % (Auto) 1.1 Neut # (Auto) 3.3 Lymph # (Auto) 1.9 [place] # (Auto) 0.4 Eos # (Auto) 0.2 Baso # (Auto) 0.1 APTT 32 Sodium 137 Potassium 3.5 L Chloride 99 Carbon Dioxide 31 H Anion Gap 10 BUN 12 Creatinine 0.6 L Est GFR ( Amer) > 60 Est GFR (Non-Af Amer) > 60 Random Glucose 108 H Calcium 9.1 Total Bilirubin 0.8 AST 23 ALT 17 Alkaline Phosphatase 74 Total Creatine Kinase 79 Troponin I < 0.0120 Total Protein 8.3 Albumin 4.6 Globulin 3.7 Albumin/Globulin Ratio 1.2 Urine Color Urine Clarity Urine pH Ur Specific [place] Urine Protein Urine Glucose (UA) Urine Ketones Urine Blood Urine Nitrate Urine Bilirubin Urine Urobilinogen Ur Leukocyte Esterase Urine WBC (Auto) Ur Squamous Epith Cells 06/24/18 10:55 WBC RBC Hgb Hct MCV MCH MCHC RDW Plt Count MPV Neut % (Auto) Lymph % (Auto) [place] % (Auto) Eos % (Auto) Baso % (Auto) Neut # (Auto) Lymph # (Auto) [place] # (Auto) Eos # (Auto) Baso # (Auto) APTT Sodium Potassium Chloride Carbon Dioxide Anion Gap BUN Creatinine Est GFR ( Amer) Est GFR (Non-Af Amer) Random Glucose Calcium Total Bilirubin AST ALT Alkaline Phosphatase Total Creatine Kinase Troponin I Total Protein Albumin Globulin Albumin/Globulin Ratio Urine Color Straw Urine Clarity Clear Urine pH 6.0 Ur Specific [place] 1.005 Urine Protein Negative Urine Glucose (UA) Normal Urine Ketones Negative Urine Blood Negative Urine Nitrate Negative Urine Bilirubin Negative Urine Urobilinogen Normal Ur Leukocyte Esterase Neg Urine WBC (Auto) < 1 Ur Squamous Epith Cells 1
[2018-06-24 19:52] LABS: CK-MB 0.41 ng/mL (0.0-3.38)
[2018-06-25 03:58] LABS: CK-MB 0.28 ng/mL (0.0-3.38)
[2018-06-25] MEDS: Budesonide 0.25 mg/2 ml Inhal Susp UD INH SCH ×2 (07:02→23:12)
[2018-06-25] MEDS: Fluticasone Nasal 50 mcg/Spray NS SCH (08:21)
[2018-06-25] MEDS ORDERED: Pantoprazole 40 mg EC Tab PO SCH (10:00)
[2018-06-25] MEDS: Pantoprazole 40 mg EC Tab PO SCH (10:33)
[2018-06-25] MEDS: Metoprolol Succinate 25 mg XL Tab PO SCH (10:33)
[2018-06-25] MEDS: Enoxaparin 40 mg Syringe SC SCH (10:34)
--- NOTE | 2018-06-25 11:22 | CP.PCM.CON ---
History of Present Illness - History of Present Illness History of Present Illness: 52-year-old -[place] female with history of morbid obesity COPD hypertension who presented to the emergency room with complaints of left lower quadrant upper chest wall discomfort according to the patient she was moving something in the kitchen when she started noticing discomfort twinging feeling chest wall pain is reproducible on palpation along the left costochondral junction approximately 5 years ago she had workup done at [facility]. Had a history of pneumonia back in 2016 sleep apnea on CPAP. States that she was taking the water challenge has lost about 20 pounds in the last 20 days. Review of Systems - Review of Systems Systems not reviewed;Unavailable: Acuity of Condition - Constitutional Constitutional: As Per HPI - EENT Eyes: As Per HPI Ears: As Per HPI Nose/Mouth/Throat: As Per HPI - Breasts Breasts: As Per HPI - Cardiovascular Cardiovascular: As Per HPI - Respiratory Respiratory: As Per HPI - Gastrointestinal Gastrointestinal: As Per HPI - Genitourinary Genitourinary: As Per HPI - Reproductive: Female Reproductive:Female: As Per HPI - Menstruation Menstruation: As Per HPI - Musculoskeletal Musculoskeletal: As Per HPI - Integumentary Integumentary: As Per HPI - Neurological Neurological: As Per HPI - Psychiatric Psychiatric: As Per HPI - Endocrine Endocrine: As Per HPI - Hematologic/Lymphatic Hematologic: As Per HPI Past Patient History - Infectious Disease Hx of Infectious Diseases: None - Past Medical History & Family History Past Medical History?: Yes - Past Social History Smoking Status: Never Smoked - CARDIAC Hx Hypertension: Yes Hx Peripheral Edema: Yes - PULMONARY Hx Asthma: Yes Hx Chronic Obstructive Pulmonary Disease (COPD): Yes Hx Pneumonia: Yes (2016) Hx Sleep Apnea: Yes (on CPAP) - NEUROLOGICAL Hx Neurological Disorder: No - HEENT Hx HEENT Problems: No - RENAL Hx Chronic Kidney Disease: No - ENDOCRINE/METABOLIC Hx Endocrine Disorders: No - HEMATOLOGICAL/ONCOLOGICAL Hx Blood Disorders: No - INTEGUMENTARY Hx Dermatological Problems: No - MUSCULOSKELETAL/RHEUMATOLOGICAL Hx Arthritis: Yes - GASTROINTESTINAL Hx Gastrointestinal Disorders: No Other/Comment: HERNIA REPAIR 28 years ago - GENITOURINARY/GYNECOLOGICAL Hx Genitourinary Disorders: No - PSYCHIATRIC Hx Anxiety: Yes Hx Bipolar Disorder: Yes Hx Depression: Yes Hx Substance Use: No - SURGICAL HISTORY Hx Surgeries: Yes Hx Section: Yes (x5) Hx Herniorrhaphy: Yes (28 years ago) - ANESTHESIA Hx Anesthesia: Yes Hx Anesthesia Reactions: No Hx Malignant Hyperthermia: No Meds Allergies/Adverse Reactions: Allergies Allergy/AdvReac Type Severity Reaction Status Date / Time No Known Allergies Allergy Verified 06/24/18 10:10 - Medications Medications: Current Medications Albuterol/Ipratropium (Duoneb 3 Mg/0.5 Mg (3 Ml) Ud) 3 ml INH RQ6 PRN PRN Reason: Shortness of Breath Amlodipine Besylate (Norvasc) 10 mg PO DAILY [facility] Last Admin: 06/25/18 10:33 Dose: 10 mg Aspirin (Aspirin) 325 mg PO DAILY [facility] Last Admin: 06/25/18 10:32 Dose: 325 mg Budesonide (Pulmicort Respules) 0.25 mg INH RQ12 [facility] Last Admin: 06/25/18 07:02 Dose: Not Given Clopidogrel Bisulfate (Plavix) 75 mg PO DAILY [facility] Last Admin: 06/25/18 10:32 Dose: 75 mg Enoxaparin Sodium (Lovenox) 40 mg SC DAILY [facility] Last Admin: 06/25/18 10:34 Dose: 40 mg Fluticasone Propionate (Flonase) 1 spr NS RQD [facility] Furosemide (Lasix) 40 mg PO DAILY [facility] Last Admin: 06/25/18 10:33 Dose: 40 mg Losartan Potassium (Cozaar) 50 mg PO DAILY [facility] Last Admin: 06/25/18 10:37 Dose: 50 mg Metoprolol Succinate (Toprol Xl) 25 mg PO DAILY [facility] Last Admin: 06/25/18 10:33 Dose: 25 mg Montelukast Sodium (Singulair) 10 mg PO [facility] Last Admin: 06/24/18 21:47 Dose: 10 mg Nitroglycerin (Nitrostat Sl Tab) 0.4 mg SL Q5M PRN PRN Reason: chest pain Pantoprazole Sodium (Protonix Ec Tab) 40 mg PO DAILY [facility] Last Admin: 06/25/18 10:33 Dose: 40 mg Rosuvastatin Calcium (Crestor) 10 mg PO HS [facility] Last Admin: 06/24/18 21:47 Dose: 10 mg Physical Exam - Constitutional Appears: Well - Head Exam Head Exam: ATRAUMATIC, NORMAL INSPECTION, NORMOCEPHALIC - Eye Exam Eye Exam: EOMI, Normal appearance, PERRL Pupil Exam: NORMAL ACCOMODATION, PERRL - ENT Exam ENT Exam: Mucous Membranes Moist, Normal Exam - Neck Exam Neck exam: Positive for: Normal Inspection - Respiratory Exam Respiratory Exam: Clear to Auscultation Bilateral, NORMAL BREATHING PATTERN - Cardiovascular Exam Cardiovascular Exam: REGULAR RHYTHM - GI/Abdominal Exam GI & Abdominal Exam: Normal Bowel Sounds, Soft. absent: Tenderness - Extremities Exam Extremities exam: Positive for: normal inspection - Back Exam Back exam: NORMAL INSPECTION - Neurological Exam Neurological exam: Alert, CN II-XII Intact, Normal Gait, Oriented x3, Reflexes Normal - Psychiatric Exam Psychiatric exam: Normal Affect, Normal Mood - Skin Skin Exam: Dry, Intact, Normal Color, Warm Results - Vital Signs Recent Vital Signs: Last Vital Signs Temp 98.0 F 06/25/18 07:30 Pulse 68 06/25/18 07:30 Resp 20 06/25/18 07:30 BP 139/82 06/25/18 10:33 Pulse Ox 96 06/25/18 07:45 - Labs Result Diagrams: 06/24/18 10:55 06/24/18 10:55 Labs: Laboratory Results - last 24 hr 06/24/18 06/24/18 06/25/18 10:55 19:20 03:04 Sodium 137 Potassium 3.5 L Chloride 99 Carbon Dioxide 31 H Anion Gap 10 BUN 12 Creatinine 0.6 L Est GFR ( Amer) > 60 Est GFR (Non-Af Amer) > 60 Random Glucose 108 H Calcium 9.1 Total Bilirubin 0.8 AST 23 ALT 17 Alkaline Phosphatase 74 Total Creatine Kinase 79 71 56 CK-MB (Mass) 0.41 0.28 Troponin I < 0.0120 < 0.0120 < 0.0120 Total Protein 8.3 Albumin 4.6 Globulin 3.7 Albumin/Globulin Ratio 1.2 Assessment & Plan (1) Chest pain Assessment and Plan: reproducible on palpation c/w constochondritis outpt stress test TnI x 3 normal EKG - nonspecific dc home on nsaids Status: Acute (2) Chest wall discomfort Status: Acute (3) Abnormal EKG Status: Acute (4) HTN (hypertension) Assessment and Plan: cont home bp meds Status: Acute (5) Morbid obesity Status: Acute (6) VEL (obstructive sleep apnea) Status: Acute
--- NOTE | 2018-06-25 13:04 | CP.PCM.PN ---
Subjective - Date & Time of Evaluation Date of Evaluation: 06/25/18 Time of Evaluation: 11:15 - Subjective Subjective: clinically same Objective - Vital Signs/Intake and Output Vital Signs (last 24 hours): Temp Pulse Resp BP Pulse Ox 98.0 F 68 20 139/82 96 06/25/18 07:30 06/25/18 07:30 06/25/18 07:30 06/25/18 10:33 06/25/18 07:45 Intake and Output: 06/25/18 06/25/18 06:59 18:59 Intake Total 600 Balance 600 - Medications Medications: Current Medications Albuterol/Ipratropium (Duoneb 3 Mg/0.5 Mg (3 Ml) Ud) 3 ml INH RQ6 PRN PRN Reason: Shortness of Breath Amlodipine Besylate (Norvasc) 10 mg PO DAILY [facility] Last Admin: 06/25/18 10:33 Dose: 10 mg Aspirin (Aspirin) 325 mg PO DAILY [facility] Last Admin: 06/25/18 10:32 Dose: 325 mg Budesonide (Pulmicort Respules) 0.25 mg INH RQ12 [facility] Last Admin: 06/25/18 07:02 Dose: Not Given Clopidogrel Bisulfate (Plavix) 75 mg PO DAILY [facility] Last Admin: 06/25/18 10:32 Dose: 75 mg Enoxaparin Sodium (Lovenox) 40 mg SC DAILY [facility] Last Admin: 06/25/18 10:34 Dose: 40 mg Fluticasone Propionate (Flonase) 1 spr NS RQD [facility] Furosemide (Lasix) 40 mg PO DAILY [facility] Last Admin: 06/25/18 10:33 Dose: 40 mg Losartan Potassium (Cozaar) 50 mg PO DAILY [facility] Last Admin: 06/25/18 10:37 Dose: 50 mg Metoprolol Succinate (Toprol Xl) 25 mg PO DAILY [facility] Last Admin: 06/25/18 10:33 Dose: 25 mg Montelukast Sodium (Singulair) 10 mg PO HS [facility] Last Admin: 06/24/18 21:47 Dose: 10 mg Nitroglycerin (Nitrostat Sl Tab) 0.4 mg SL Q5M PRN PRN Reason: chest pain Pantoprazole Sodium (Protonix Ec Tab) 40 mg PO DAILY [facility] Last Admin: 06/25/18 10:33 Dose: 40 mg Rosuvastatin Calcium (Crestor) 10 mg PO HS [facility] Last Admin: 06/24/18 21:47 Dose: 10 mg - Labs Labs: 06/24/18 10:55 06/24/18 10:55 APTT 32 SECONDS (21-34) 06/24/18 10:55 - Constitutional Appears: Well - Head Exam Head Exam: ATRAUMATIC, NORMAL INSPECTION, NORMOCEPHALIC - Eye Exam Eye Exam: EOMI, Normal appearance, PERRL Pupil Exam: NORMAL ACCOMODATION, PERRL - ENT Exam ENT Exam: Mucous Membranes Moist, Normal Exam - Neck Exam Neck Exam: Full ROM, Normal Inspection. absent: Lymphadenopathy - Respiratory Exam Respiratory Exam: Decreased Breath Sounds - Cardiovascular Exam Cardiovascular Exam: REGULAR RHYTHM, +S1, +S2 - GI/Abdominal Exam GI & Abdominal Exam: Soft, Diminished Bowel Sounds - Rectal Exam Rectal Exam: Deferred
--- NOTE | 2018-06-26 07:55 | CP.PCM.PN ---
Subjective - Date & Time of Evaluation Date of Evaluation: 06/26/18 Time of Evaluation: 07:55 - Subjective Subjective: Dr. Vero Ortiz Progress Note Patient 52 year old female with a past medical history of hypertension, copd, joshua cyst, and obesity who comes in after having chest pain that begin on Thrusday. Patient states she was sitting down at home when The chest pain started on her right mid chest and under the left breast with no radiation. Patient rates the pain as a 6/10 in severity. Patient normally gets this pain, however the pain returned for a total of three times, which is why she decided to come into the hospital. Patient reports some dizziness in conjunction with the pain. Patient denies any fevers, chills, changes in vision, syncopal episodes, abdominal pain , or any other complaints. PMD: Dr. Mancia Medical history: hypertension, copd, joshua cyst, obesity Allergies: Denies Surgical history: Hernia repair, 5 c-sections Family history: Mom (From stroke and heart attack), Brother (pancreatic cancer) Objective - Vital Signs/Intake and Output Vital Signs (last 24 hours): Temp Pulse Resp BP Pulse Ox 98.2 F 53 L 20 109/66 95 06/25/18 23:45 06/26/18 03:56 06/25/18 23:45 06/25/18 23:45 06/25/18 23:45 Intake and Output: 06/26/18 06/26/18 06:59 18:59 Intake Total 650 Balance 650 - Medications Medications: Current Medications Acetaminophen (Tylenol 325mg Tab) 650 mg PO Q6 PRN PRN Reason: Pain, moderate (4-7) Last Admin: 06/25/18 21:03 Dose: 650 mg Albuterol/Ipratropium (Duoneb 3 Mg/0.5 Mg (3 Ml) Ud) 3 ml INH RQ6 PRN PRN Reason: Shortness of Breath Amlodipine Besylate (Norvasc) 10 mg PO DAILY [facility] Last Admin: 06/25/18 10:33 Dose: 10 mg Aspirin (Aspirin) 325 mg PO DAILY [facility] Last Admin: 06/25/18 10:32 Dose: 325 mg Budesonide (Pulmicort Respules) 0.25 mg INH RQ12 [facility] Last Admin: 06/25/18 23:12 Dose: Not Given Clopidogrel Bisulfate (Plavix) 75 mg PO DAILY [facility] Last Admin: 06/25/18 10:32 Dose: 75 mg Enoxaparin Sodium (Lovenox) 40 mg SC DAILY [facility] Last Admin: 06/25/18 10:34 Dose: 40 mg Fluticasone Propionate (Flonase) 1 spr NS RQD [facility] Last Admin: 06/25/18 08:21 Dose: 1 spr Furosemide (Lasix) 40 mg PO DAILY [facility] Last Admin: 06/25/18 10:33 Dose: 40 mg Losartan Potassium (Cozaar) 50 mg PO DAILY [facility] Last Admin: 06/25/18 10:37 Dose: 50 mg Metoprolol Succinate (Toprol Xl) 25 mg PO DAILY [facility] Last Admin: 06/25/18 10:33 Dose: 25 mg Montelukast Sodium (Singulair) 10 mg PO HS [facility] Last Admin: 06/25/18 21:05 Dose: 10 mg Nitroglycerin (Nitrostat Sl Tab) 0.4 mg SL Q5M PRN PRN Reason: chest pain Pantoprazole Sodium (Protonix Ec Tab) 40 mg PO DAILY [facility] Last Admin: 06/25/18 10:33 Dose: 40 mg Rosuvastatin Calcium (Crestor) 10 mg PO HS [facility] Last Admin: 06/25/18 21:04 Dose: 10 mg - Labs Labs: 06/24/18 10:55 06/24/18 10:55 APTT 32 SECONDS (21-34) 06/24/18 10:55 - Head Exam Head Exam: ATRAUMATIC, NORMAL INSPECTION - Eye Exam Eye Exam: EOMI, Normal appearance, PERRL Pupil Exam: NORMAL ACCOMODATION - ENT Exam ENT Exam: Mucous Membranes Moist, Normal Oropharynx - Respiratory Exam Respiratory Exam: Clear to Ausculation Bilateral, NORMAL BREATHING PATTERN. absent: Respiratory Distress - Cardiovascular Exam Cardiovascular Exam: REGULAR RHYTHM, +S1, +S2 - GI/Abdominal Exam GI & Abdominal Exam: Soft, Normal Bowel Sounds. absent: Hyperactive Bowel Sounds - Extremities Exam Extremities Exam: Full ROM, Normal Inspection. absent: Pedal Edema - Back Exam Back Exam: NORMAL INSPECTION. absent: paraspinal tenderness - Neurological Exam Neurological Exam: Alert, Awake, Normal Gait, Oriented x3 - Psychiatric Exam Psychiatric exam: Normal Affect, Normal Mood. absent: Depressed - Skin Skin Exam: Dry, Intact Assessment and Plan - Assessment and Plan (Free Text) Assessment: 52 year old female with a past medical history of obesit, copd, hypertension, an d joshua cyst presents with chest pain since . Plan: 1. Chest pain r/o acs EKG:sinus rhythm with 1st AV block, ST depression aVF Troponin (-)x3 Card[address] Devi consulted. -reproducible on palpation c/w constochondritis -outpt stress test -EKG - nonspecific -dc home on nsaids 2.COPD -Duoneb 3ml INH RQ6PRN -Singulair 10mg PO HS [facility] 3.Hypertension -Norvasc 10mg PO DAILY [facility] -Cozaar 50mg PO DAILY [facility] -Toprol XL 25MG PO DAILY [facility] 4. Hyperlipidemia -Crestor 10mg PO HS [facility] ppx -Protonix -Lovenox Dispo: Patient to be discharged today with instruction to follow up with Cardiology for outpatient stress test. Discharge Instructions: 1.F/u with PMD within 5 days of discharge. 2.F/u with Cardiology for op stress test within 5 days of discharge. 3.Return to hospital for any new or worsening symptoms Medications: 1.Norvasc 10mg PO Daily, #30, No refills 2.Protonix 40mg PO Daily, #30, No refills 3.Budesonide .25mg INH RQ12 4.Furosemide 40mg PO Daily, #30, No refills 5.Cozaar 50mg PO DAILY, #30, No refills 6. Rosuvastatin 10mg PO HS, 30, No refills. All management per Dr. Vero Galarza, PGY-2
[2018-06-26 08:14] VITALS: PULSE 70; TEMP 98.6; O2SAT 96
[2018-06-26] MEDS: Fluticasone Nasal 50 mcg/Spray NS SCH (08:34)
--- NOTE | 2018-06-26 09:59 | CP.PCM.PN ---
Subjective - Date & Time of Evaluation Date of Evaluation: 06/26/18 Time of Evaluation: 09:56 - Subjective Subjective: Pt seen and examined at bedside this morning. Pt denies chest pain or SOB Objective - Vital Signs/Intake and Output Vital Signs (last 24 hours): Temp Pulse Resp BP Pulse Ox 98.6 F 70 20 113/72 96 06/26/18 08:12 06/26/18 08:12 06/26/18 08:12 06/26/18 08:12 06/26/18 08:12 Intake and Output: 06/26/18 06/26/18 06:59 18:59 Intake Total 650 Balance 650 - Medications Medications: Current Medications Acetaminophen (Tylenol 325mg Tab) 650 mg PO Q6 PRN PRN Reason: Pain, moderate (4-7) Last Admin: 06/25/18 21:03 Dose: 650 mg Albuterol/Ipratropium (Duoneb 3 Mg/0.5 Mg (3 Ml) Ud) 3 ml INH RQ6 PRN PRN Reason: Shortness of Breath Amlodipine Besylate (Norvasc) 10 mg PO DAILY [facility] Last Admin: 06/25/18 10:33 Dose: 10 mg Aspirin (Aspirin) 325 mg PO DAILY [facility] Last Admin: 06/25/18 10:32 Dose: 325 mg Budesonide (Pulmicort Respules) 0.25 mg INH RQ12 [facility] Last Admin: 06/25/18 23:12 Dose: Not Given Clopidogrel Bisulfate (Plavix) 75 mg PO DAILY [facility] Last Admin: 06/25/18 10:32 Dose: 75 mg Enoxaparin Sodium (Lovenox) 40 mg SC DAILY [facility] Last Admin: 06/25/18 10:34 Dose: 40 mg Fluticasone Propionate (Flonase) 1 spr NS RQD [facility] Last Admin: 06/25/18 08:21 Dose: 1 spr Furosemide (Lasix) 40 mg PO DAILY [facility] Last Admin: 06/25/18 10:33 Dose: 40 mg Losartan Potassium (Cozaar) 50 mg PO DAILY [facility] Last Admin: 06/25/18 10:37 Dose: 50 mg Metoprolol Succinate (Toprol Xl) 25 mg PO DAILY [facility] Last Admin: 06/25/18 10:33 Dose: 25 mg Montelukast Sodium (Singulair) 10 mg PO HS [facility] Last Admin: 06/25/18 21:05 Dose: 10 mg Nitroglycerin (Nitrostat Sl Tab) 0.4 mg SL Q5M PRN PRN Reason: chest pain Pantoprazole Sodium (Protonix Ec Tab) 40 mg PO DAILY [facility] Last Admin: 06/25/18 10:33 Dose: 40 mg Rosuvastatin Calcium (Crestor) 10 mg PO HS [facility] Last Admin: 06/25/18 21:04 Dose: 10 mg - Labs Labs: 06/24/18 10:55 06/24/18 10:55 APTT 32 SECONDS (21-34) 06/24/18 10:55 - Constitutional Appears: No Acute Distress - Head Exam Head Exam: ATRAUMATIC, NORMOCEPHALIC - Eye Exam Eye Exam: EOMI - ENT Exam ENT Exam: Mucous Membranes Moist - Neck Exam Neck Exam: Full ROM - Respiratory Exam Respiratory Exam: Clear to Ausculation Bilateral, NORMAL BREATHING PATTERN. absent: Accessory Muscle Use - Cardiovascular Exam Cardiovascular Exam: RRR, +S1, +S2. absent: Diastolic murmur, Murmur - GI/Abdominal Exam GI & Abdominal Exam: Soft, Normal Bowel Sounds. absent: Tenderness - Extremities Exam Extremities Exam: Full ROM. absent: Calf Tenderness, Pedal Edema - Neurological Exam Neurological Exam: Alert, Oriented x3 - Psychiatric Exam Psychiatric exam: Normal Affect, Normal Mood - Skin Skin Exam: Dry, Normal Color, Warm Assessment and Plan - Assessment and Plan (Free Text) Assessment: (1) Chest pain Status: Acute (2) Chest wall discomfort Status: Acute (3) Abnormal EKG Status: Acute (4) HTN (hypertension) Status: Acute (5) Morbid obesity Status: Acute (6) VEL (obstructive sleep apnea) Status: Acute Plan: Chest pain, rule out ACS Troponin negative x3 EKG has non specific changes Rec out pt stress test Medications amlodipine ASA plavix lasix cozaar metoprolol crestor Pt seen, examined, assessment and plan discussed with Dr Marito Hart PGY1
[2018-06-26] MEDS: Pantoprazole 40 mg EC Tab PO SCH (10:24)
[2018-06-26] MEDS: Metoprolol Succinate 25 mg XL Tab PO SCH (10:24)
[2018-06-26] MEDS: Enoxaparin 40 mg Syringe SC SCH (10:28)
[2018-06-26 11:55] LABS: BASO # 0.1 K/uL (0.0-0.2); BASO % 1.3 % (0.0-2.0); EOS # 0.3 K/uL (0.0-0.7); EOS % 5.1 % (0.0-4.0); HEMOGLOBIN 12.6 g/dL (11.0-16.0); LYMPH # 1.8 K/uL (1.0-4.3); LYMPH % 30.4 % (20.0-40.0); MEAN CELL VOLUME 87.8 fL (81.0-99.0); MEAN CORPUSCULAR HEMOGLOBIN 28.2 pg (27.0-31.0); MEAN CORPUSCULAR HGB CONC 32.1 g/dL (33.0-37.0); MEAN PLATELET VOLUME 8.9 fL (7.2-11.7); MONO # 0.5 K/uL (0.0-0.8); MONO % 8.1 % (0.0-10.0); NEUT # 3.2 K/uL (1.8-7.0); NEUT % 55.1 % (50.0-75.0); NRBC % 0.1 % (0.0-2.0); RBC 4.48 Mil/uL (3.80-5.20); RED CELL DISTRIBUTION WIDTH 14.1 % (11.5-14.5); WHITE BLOOD COUNT 5.8 K/uL (4.8-10.8)
[2018-06-26 12:03] LABS: ALB/GLOB RATIO 1.2 (1.0-2.1); ALBUMIN 4.2 g/dL (3.5-5.0); ALT/SGPT 16 U/L (9-52); AST/SGOT 20 U/L (14-36); BLOOD UREA NITROGEN 17 mg/dL (7-17); GFR NON-AFRICAN AMERICAN > 60
[2018-06-26 13:08] VITALS: BP 103/56
--- NOTE | 2018-06-26 14:22 | CP.PCM.PN ---
Subjective - Date & Time of Evaluation Date of Evaluation: 06/26/18 Time of Evaluation: 12:30 - Subjective Subjective: clinically same Objective - Vital Signs/Intake and Output Vital Signs (last 24 hours): Temp Pulse Resp BP Pulse Ox 98.6 F 70 20 103/56 L 96 06/26/18 08:12 06/26/18 08:12 06/26/18 08:12 06/26/18 13:00 06/26/18 08:12 Intake and Output: 06/26/18 06/26/18 06:59 18:59 Intake Total 650 Balance 650 - Medications Medications: Current Medications Acetaminophen (Tylenol 325mg Tab) 650 mg PO Q6 PRN PRN Reason: Pain, moderate (4-7) Last Admin: 06/25/18 21:03 Dose: 650 mg Albuterol/Ipratropium (Duoneb 3 Mg/0.5 Mg (3 Ml) Ud) 3 ml INH RQ6 PRN PRN Reason: Shortness of Breath Amlodipine Besylate (Norvasc) 10 mg PO DAILY [facility] Last Admin: 06/26/18 10:24 Dose: 10 mg Aspirin (Aspirin) 325 mg PO DAILY [facility] Last Admin: 06/26/18 10:23 Dose: 325 mg Budesonide (Pulmicort Respules) 0.25 mg INH RQ12 [facility] Last Admin: 06/25/18 23:12 Dose: Not Given Clopidogrel Bisulfate (Plavix) 75 mg PO DAILY [facility] Last Admin: 06/26/18 10:23 Dose: 75 mg Enoxaparin Sodium (Lovenox) 40 mg SC DAILY [facility] Last Admin: 06/26/18 10:28 Dose: 40 mg Fluticasone Propionate (Flonase) 1 spr NS RQD [facility] Last Admin: 06/26/18 08:34 Dose: 1 spr Furosemide (Lasix) 40 mg PO DAILY [facility] Last Admin: 06/26/18 13:00 Dose: 40 mg Influenza Virus Vaccine (Flucelvax Quad [id number] Syr) 60 mcg IM .ONCE ONE Stop: 06/27/18 12:01 Losartan Potassium (Cozaar) 50 mg PO DAILY [facility] Last Admin: 06/26/18 10:24 Dose: 50 mg Metoprolol Succinate (Toprol Xl) 25 mg PO DAILY [facility] Last Admin: 06/26/18 10:24 Dose: 25 mg Montelukast Sodium (Singulair) 10 mg PO HS [facility] Last Admin: 06/25/18 21:05 Dose: 10 mg Nitroglycerin (Nitrostat Sl Tab) 0.4 mg SL Q5M PRN PRN Reason: chest pain Pantoprazole Sodium (Protonix Ec Tab) 40 mg PO DAILY [facility] Last Admin: 06/26/18 10:24 Dose: 40 mg Rosuvastatin Calcium (Crestor) 10 mg PO [facility] Last Admin: 06/25/18 21:04 Dose: 10 mg - Labs Labs: 06/26/18 11:29 06/26/18 11:29 APTT 32 SECONDS (21-34) 06/24/18 10:55
[2018-06-27] MEDS ORDERED: Influenza Vaccine 60 mcg/0.5 mL SYR (4YR UP) IM ONE (12:00)
== END 2018-06-26 16:01 | disposition home or self-care (01) ==
LOC: C.ER 10:04 → C.6T 12:44
PROVIDERS: ADMIT Internal Medicine Nephrology; ATTEND Internal Medicine Nephrology
DX: R07.89 Other chest pain (principal); I10 Essential (primary) hypertension; J44.9 Chronic obstructive pulmonary disease, unspecified; G47.33 Obstructive sleep apnea (adult) (pediatric); E66.01 Morbid (severe) obesity due to excess calories; E78.5 Hyperlipidemia, unspecified; Z87.01 Personal history of pneumonia (recurrent); Z80.0 Family history of malignant neoplasm of digestive organs; Z82.3 Family history of stroke; Z82.49 Family history of ischemic heart disease and other diseases of the circulatory system
CPT/HCPCS: 36415; 71046; 80053; 81001; 82550; 84484; 85025; 85730; 93005; 99285; G0378; J1650; J3480

== ENCOUNTER 2018-07-05 13:01 | Inpatient (IN) | payer MEDICAID, OTHER ==
[2018-07-05 13:02] VITALS: BMI 53.9
--- NOTE | 2018-07-05 13:41 | C.PDOC ---
History Of Present Illness 52 year old female presents to ED for evaluation of left-sided chest pain, described as sharp, and is non-reproducible, and non-pleuritic. Patient states that that pain started yesterday for few minutes and then resolved. However she woke up this morning again with the chest pain. Patient also complains of mild frontal headache and mild associated SOB. Patient was recently admitted at [facility] from 04/23/19 to 04/25/19 for chest pain. She has PMhx of COPD/asthma, hypertension, VEL, bipolar disorder, and pneumonia. Patient is unsure of when her last stress test was, thinks that it was over 1 year ago. She denies cough, fever, abdominal pain, nausea, vomiting, diarrhea, and palpitations. Time Seen by Provider: 07/05/18 13:09 Chief Complaint (Nursing): Chest Pain History Per: Patient History/Exam Limitations: no limitations Onset/Duration Of Symptoms: Days (1) Current Symptoms Are (Timing): Still Present Severity: Moderate Quality: "Pain" Associated Symptoms: denies: Nausea, Dyspnea Past Medical History Reviewed: Historical Data, Nursing Documentation, Vital Signs Vital Signs: Last Vital Signs Temp 98.2 F 07/05/18 13:14 Pulse 72 07/05/18 13:20 Resp 20 07/05/18 13:14 BP 142/84 07/05/18 13:14 Pulse Ox 99 07/05/18 13:14 - Medical History PMH: Anxiety, Arthritis, Asthma, Bipolar Disorder, COPD, Depression, HTN, Per ipheral Edema, Pneumonia (2016), Sleep Apnea (on CPAP) Surgical History: Hernia Repair, Family History: States: No Known Family Hx - Social History Hx Tobacco Use: No Hx Alcohol Use: No Hx Substance Use: No - Immunization History Hx Tetanus Toxoid Vaccination: No Hx Influenza Vaccination: No Hx Pneumococcal Vaccination: No Review Of Systems Constitutional: Negative for: Fever, Chills, Weakness Cardiovascular: Positive for: Chest Pain. Negative for: Palpitations Respiratory: Positive for: Shortness of Breath. Negative for: Cough Gastrointestinal: Negative for: Nausea, Vomiting, Abdominal Pain, Diarrhea Genitourinary: Negative for: Dysuria Neurological: Positive for: Headache (mild, frontal). Negative for: Weakness, Numbness, Dizziness Physical Exam - Physical Exam Appears: Well, Non-toxic, No Acute Distress, Other (obese, speaking full sentences) Skin: Normal Color, Warm, Dry, No Rash Head: Atraumatic, Normacephalic Eye(s): bilateral: Normal Inspection Oral Mucosa: Moist Neck: Supple Chest: Symmetrical, No Tenderness, No Other (no rashes) Cardiovascular: Rhythm Regular, No Murmur Respiratory: Normal Breath Sounds, No Rales, No Rhonchi, No Wheezing Gastrointestinal/Abdominal: Normal Exam, Bowel Sounds, Soft, No Tenderness Extremity: Normal ROM, No Pedal Edema, No Calf Tenderness Extremity: Bilateral: Atraumatic, Normal Color And Temperature Pulses: Left Dorsalis Pedis: Normal, Right Dorsalis Pedis: Normal Neurological/Psych: Oriented x3 Gait: Steady ED Course And Treatment - Laboratory Results Result Diagrams: 07/05/18 13:43 07/05/18 13:43 ECG: Interpreted By Me, Viewed By Me (NSR 66bpm, normal axis, no acute ST/T wave changes) ECG Rhythm: Sinus Rhythm ECG Interpretation: Normal O2 Sat by Pulse Oximetry: 99 (RA) Pulse Ox Interpretation: Normal - Radiology CXR: Interpreted by Me, Viewed By Me CXR Interpretation: Yes: No Acute Disease. No: Infiltrates, Other (Effusions) Progress Note: Blood work, EKG, CXR ordered and reviewed. Patient given PO ASA. Prior [facility] visits reviewed over the last 1 yeay, do not see recent stress test. Prior visit cardio consult recommended outpatient stress test, patient has not yet done so. - Physician Consult Information Physician Contacted: Nithin Ortiz Outcome Of Conversation: Discussed patient with Dr. Ortiz, agrees with obs telemetry for chest pain r/ o ACS. Disposition - Disposition Disposition: HOSPITALIZED Disposition Time: 14:50 Condition: STABLE - Clinical Impression Clinical Impression: Chest pain - Scribe Statement The provider has reviewed the documentation as recorded by the Scribe (Brooklynn Martinez) All medical record entries made by the Scribe were at my direction and personally dictated by me. I have reviewed the chart and agree that the record accurately reflects my personal performance of the history, physical exam, me dical decision making, and the department course for this patient. I have also personally directed, reviewed, and agree with the discharge instructions and disposition. Decision To Admit - Pt Status Changed To: Hospital Disposition Of: Observation - . Bed Request Type: Telemetry Admitting Physician: Nithin Ortiz Patient Diagnosis: Chest pain
[2018-07-05 13:50] LABS: BASO # 0.1 K/uL (0.0-0.2); BASO % 1.1 % (0.0-2.0); EOS # 0.3 K/uL (0.0-0.7); EOS % 4.7 % (0.0-4.0); HEMOGLOBIN 12.7 g/dL (11.0-16.0); LYMPH % 31.7 % (20.0-40.0); MEAN CORPUSCULAR HEMOGLOBIN 28.3 pg (27.0-31.0); MEAN CORPUSCULAR HGB CONC 32.5 g/dL (33.0-37.0); MEAN PLATELET VOLUME 8.6 fL (7.2-11.7); MONO # 0.3 K/uL (0.0-0.8); MONO % 5.1 % (0.0-10.0); NEUT # 3.6 K/uL (1.8-7.0); NEUT % 57.4 % (50.0-75.0); RBC 4.49 Mil/uL (3.80-5.20); RED CELL DISTRIBUTION WIDTH 14.4 % (11.5-14.5); WHITE BLOOD COUNT 6.2 K/uL (4.8-10.8)
--- NOTE | 2018-07-05 13:56 | RAD ---
Date of service: 07/05/2018 PROCEDURE: CHEST RADIOGRAPH, 1 VIEW HISTORY: Chest pain COMPARISON: 06/24/2018. FINDINGS: LUNGS: The lungs are well inflated and clear. PLEURA: No pneumothorax or pleural effusion. CARDIOVASCULAR: The heart is normal in size. There are aortic atherosclerotic calcifications present. OSSEOUS STRUCTURES: Within normal limits for the patient's age. VISUALIZED UPPER ABDOMEN: Normal. OTHER FINDINGS: None. IMPRESSION: No active pulmonary disease.
[2018-07-05 14:03] LABS: ALB/GLOB RATIO 1.4 (1.0-2.1); ALBUMIN 4.5 g/dL (3.5-5.0); ALT/SGPT 19 U/L (9-52); AST/SGOT 31 U/L (14-36); BLOOD UREA NITROGEN 15 mg/dL (7-17); CALCIUM 9.3 mg/dl (8.6-10.4); GFR NON-AFRICAN AMERICAN > 60
[2018-07-05 14:11] LABS: CK-MB 0.48 ng/mL (0.0-3.38)
[2018-07-05] MEDS ORDERED: Aspirin 325 mg EC Tablets PO ONE (14:41)
--- NOTE | 2018-07-05 17:29 | CP.PCM.CON ---
History of Present Illness - History of Present Illness History of Present Illness: John Hart PGY1 Cardio consult note for Dr Devi Pt is a 52 yo female with a PMH of HTN, COPD, sleep apnea, and asthma who presets to the emergency department complaining of uncharacterizable chest pain which she states last about 1 min per episode and she has been having these episodes every 10 mins since last night. The pain is not associated with breathing, not reproducible to palpation, and not positional. Pt states she has good exercise tolerence and would be able to walk up several flights of stairs without a problem. Pt reports mild SOB. Pt denies the pain radiating to her arm or jaw. A 12 point ROS was obtained and added to the HPI where appropriate. Past Patient History - Infectious Disease Hx of Infectious Diseases: None - Past Medical History & Family History Past Medical History?: Yes - Past Social History Smoking Status: Never Smoked - CARDIAC Hx Hypertension: Yes Hx Peripheral Edema: Yes - PULMONARY Hx Asthma: Yes Hx Chronic Obstructive Pulmonary Disease (COPD): Yes Hx Pneumonia: Yes (2016) Hx Sleep Apnea: Yes (on CPAP) - NEUROLOGICAL Hx Neurological Disorder: No - HEENT Hx HEENT Problems: No - RENAL Hx Chronic Kidney Disease: No - ENDOCRINE/METABOLIC Hx Endocrine Disorders: No - HEMATOLOGICAL/ONCOLOGICAL Hx Blood Disorders: No - INTEGUMENTARY Hx Dermatological Problems: No - MUSCULOSKELETAL/RHEUMATOLOGICAL Hx Arthritis: Yes - GASTROINTESTINAL Hx Gastrointestinal Disorders: No Other/Comment: HERNIA REPAIR 28 years ago - GENITOURINARY/GYNECOLOGICAL Hx Genitourinary Disorders: No - PSYCHIATRIC Hx Anxiety: Yes Hx Bipolar Disorder: Yes Hx Depression: Yes Hx Substance Use: No - SURGICAL HISTORY Hx Surgeries: Yes Hx Section: Yes (x5) Hx Herniorrhaphy: Yes (28 years ago) - ANESTHESIA Hx Anesthesia: Yes Hx Anesthesia Reactions: No Hx Malignant Hyperthermia: No Meds Allergies/Adverse Reactions: Allergies Allergy/AdvReac Type Severity Reaction Status Date / Time No Known Allergies Allergy Verified 07/05/18 13:11 Physical Exam - Constitutional Appears: No Acute Distress - Head Exam Head Exam: ATRAUMATIC, NORMOCEPHALIC - Eye Exam Eye Exam: EOMI - ENT Exam ENT Exam: Mucous Membranes Moist - Neck Exam Neck exam: Positive for: Full Rom - Respiratory Exam Respiratory Exam: Accessory Muscle Use, Clear to Auscultation Bilateral, NORMAL BREATHING PATTERN. absent: Respiratory Distress - Cardiovascular Exam Cardiovascular Exam: RRR, +S1, +S2. absent: Diastolic murmur, Systolic Murmur - GI/Abdominal Exam GI & Abdominal Exam: Normal Bowel Sounds, Soft - Extremities Exam Extremities exam: Positive for: full ROM, normal inspection. Negative for: calf tenderness, pedal edema - Neurological Exam Neurological exam: Alert, Oriented x3 - Psychiatric Exam Psychiatric exam: Normal Affect, Normal Mood - Skin Skin Exam: Dry, Normal Color, Warm Results - Vital Signs Recent Vital Signs: Last Vital Signs Temp 98.6 F 07/05/18 16:43 Pulse 64 07/05/18 16:43 Resp 18 07/05/18 16:43 BP 103/60 07/05/18 16:43 Pulse Ox 98 07/05/18 16:43 - Labs Result Diagrams: 07/05/18 13:43 07/05/18 13:43 Labs: Laboratory Results - last 24 hr 07/05/18 07/05/18 13:43 13:43 WBC 6.2 RBC 4.49 Hgb 12.7 Hct 39.1 MCV 87.0 MCH 28.3 MCHC 32.5 L RDW 14.4 Plt Count 253 MPV 8.6 Neut % (Auto) 57.4 Lymph % (Auto) 31.7 [place] % (Auto) 5.1 Eos % (Auto) 4.7 H Baso % (Auto) 1.1 Neut # (Auto) 3.6 Lymph # (Auto) 2.0 [place] # (Auto) 0.3 Eos # (Auto) 0.3 Baso # (Auto) 0.1 Sodium 138 Potassium 4.0 Chloride 100 Carbon Dioxide 34 H Anion Gap 8 L BUN 15 Creatinine 0.5 L Est GFR ( Amer) > 60 Est GFR (Non-Af Amer) > 60 Random Glucose 100 Calcium 9.3 Total Bilirubin 0.5 AST 31 ALT 19 Alkaline Phosphatase 74 Total Creatine Kinase 49 CK-MB (Mass) 0.48 Troponin I < 0.0120 Total Protein 7.8 Albumin 4.5 Globulin 3.3 Albumin/Globulin Ratio 1.4 Assessment & Plan - Assessment and Plan (Free Text) Assessment: (1) Chest pain Status: Acute (2) HTN (hypertension) Status: Acute (3) VEL (obstructive sleep apnea) Status: Acute Plan: Angina, ACS rule out Trop 07/05/18 negative x1 HA1C December [address] or T wave abnormalities ECHO 02/06/18: EF 63%, diastolic dysfunction, mild aortic regurg Nuclear stress test tomorrow Medications ASA Pt seen, examined, assessment and plan discussed with Dr Marito Hart PGY1 - Date & Time Date: 07/05/18 Time: 17:28
[2018-07-05 18:13] VITALS: RESP 20
--- NOTE | 2018-07-05 19:40 | CP.PCM.HP ---
Past Patient History - Infectious Disease Hx of Infectious Diseases: None - Past Medical History & Family History Past Medical History?: Yes - Past Social History Smoking Status: Never Smoked - CARDIAC Hx Hypertension: Yes Hx Peripheral Edema: Yes - PULMONARY Hx Asthma: Yes Hx Chronic Obstructive Pulmonary Disease (COPD): Yes Hx Pneumonia: Yes (2016) Hx Sleep Apnea: Yes (on CPAP) - NEUROLOGICAL Hx Neurological Disorder: No - HEENT Hx HEENT Problems: No - RENAL Hx Chronic Kidney Disease: No - ENDOCRINE/METABOLIC Hx Endocrine Disorders: No - HEMATOLOGICAL/ONCOLOGICAL Hx Blood Disorders: No - INTEGUMENTARY Hx Dermatological Problems: No - MUSCULOSKELETAL/RHEUMATOLOGICAL Hx Arthritis: Yes - GASTROINTESTINAL Hx Gastrointestinal Disorders: No Other/Comment: HERNIA REPAIR 28 years ago - GENITOURINARY/GYNECOLOGICAL Hx Genitourinary Disorders: No - PSYCHIATRIC Hx Anxiety: Yes Hx Bipolar Disorder: Yes Hx Depression: Yes Hx Substance Use: No - SURGICAL HISTORY Hx Surgeries: Yes Hx Section: Yes (x5) Hx Herniorrhaphy: Yes (28 years ago) - ANESTHESIA Hx Anesthesia: Yes Hx Anesthesia Reactions: No Hx Malignant Hyperthermia: No Meds Allergies/Adverse Reactions: Allergies Allergy/AdvReac Type Severity Reaction Status Date / Time No Known Allergies Allergy Verified 07/05/18 13:11 Physical Exam - Constitutional Appears: Well - Head Exam Head Exam: ATRAUMATIC, NORMAL INSPECTION, NORMOCEPHALIC - Eye Exam Eye Exam: EOMI, Normal appearance, PERRL Pupil Exam: NORMAL ACCOMODATION, PERRL - ENT Exam ENT Exam: Mucous Membranes Moist, Normal Exam - Neck Exam Neck exam: Positive for: Normal Inspection - Respiratory Exam Respiratory Exam: Decreased Breath Sounds - Cardiovascular Exam Cardiovascular Exam: REGULAR RHYTHM, +S1, +S2 - GI/Abdominal Exam GI & Abdominal Exam: Diminished Bowel Sounds, Soft - Rectal Exam Rectal Exam: Deferred Results - Vital Signs Recent Vital Signs: Last Vital Signs Temp 98.8 F 07/05/18 17:40 Pulse 70 07/05/18 17:40 Resp 20 07/05/18 17:40 BP 142/80 07/05/18 17:40 Pulse Ox 98 07/05/18 17:40 - Labs Result Diagrams: 07/05/18 13:43 07/05/18 13:43 Labs: Laboratory Results - last 24 hr 07/05/18 07/05/18 13:43 13:43 WBC 6.2 RBC 4.49 Hgb 12.7 Hct 39.1 MCV 87.0 MCH 28.3 MCHC 32.5 L RDW 14.4 Plt Count 253 MPV 8.6 Neut % (Auto) 57.4 Lymph % (Auto) 31.7 [place] % (Auto) 5.1 Eos % (Auto) 4.7 H Baso % (Auto) 1.1 Neut # (Auto) 3.6 Lymph # (Auto) 2.0 [place] # (Auto) 0.3 Eos # (Auto) 0.3 Baso # (Auto) 0.1 Sodium 138 Potassium 4.0 Chloride 100 Carbon Dioxide 34 H Anion Gap 8 L BUN 15 Creatinine 0.5 L Est GFR ( Amer) > 60 Est GFR (Non-Af Amer) > 60 Random Glucose 100 Calcium 9.3 Total Bilirubin 0.5 AST 31 ALT 19 Alkaline Phosphatase 74 Total Creatine Kinase 49 CK-MB (Mass) 0.48 Troponin I < 0.0120 Total Protein 7.8 Albumin 4.5 Globulin 3.3 Albumin/Globulin Ratio 1.4
[2018-07-05 23:24] LABS: CK-MB 0.46 ng/mL (0.0-3.38)
[2018-07-06 07:23] LABS: CK-MB 0.45 ng/mL (0.0-3.38)
[2018-07-06] MEDS: Enoxaparin 40 mg Syringe SC SCH (10:05)
[2018-07-06] MEDS: Budesonide 0.25 mg/2 ml Inhal Susp UD INH SCH ×2 (11:04→20:42)
--- NOTE | 2018-07-06 11:50 | CP.PCM.PN ---
Subjective - Date & Time of Evaluation Date of Evaluation: 07/06/18 Time of Evaluation: 08:00 - Subjective Subjective: Pt seen and examined this morning at bedside. Pt reports mild chest discomfort which she states is improving. Objective - Vital Signs/Intake and Output Vital Signs (last 24 hours): Temp Pulse Resp BP Pulse Ox 98.1 F 61 20 120/68 97 07/06/18 07:00 07/06/18 07:08 07/06/18 07:00 07/06/18 10:07 07/06/18 07:00 - Medications Medications: Current Medications Amlodipine Besylate (Norvasc) 10 mg PO DAILY [facility] Last Admin: 07/06/18 10:06 Dose: 10 mg Aspirin (Aspirin) 325 mg PO DAILY [facility] Last Admin: 07/06/18 10:05 Dose: 325 mg Budesonide (Pulmicort Respules) 0.25 mg INH Q12 [facility] Last Admin: 07/06/18 11:04 Dose: 0.25 mg Clopidogrel Bisulfate (Plavix) 75 mg PO DAILY [facility] Last Admin: 07/06/18 10:05 Dose: 75 mg Diphenhydramine HCl (Benadryl) 50 mg PO Q6H PRN PRN Reason: Allergy symptoms Enoxaparin Sodium (Lovenox) 40 mg SC DAILY [facility] Last Admin: 07/06/18 10:05 Dose: 40 mg Famotidine (Pepcid) 20 mg PO DAILY [facility] Last Admin: 07/06/18 10:06 Dose: 20 mg Fluticasone Propionate (Flonase) 1 spr NS DAILY [facility] Furosemide (Lasix) 40 mg PO DAILY [facility] Last Admin: 07/06/18 10:07 Dose: 40 mg Losartan Potassium (Cozaar) 50 mg PO DAILY [facility] Last Admin: 07/06/18 10:07 Dose: 50 mg Montelukast Sodium (Singulair) 10 mg PO DAILY [facility] Last Admin: 07/06/18 10:06 Dose: 10 mg Rosuvastatin Calcium (Crestor) 10 mg PO HS [facility] Last Admin: 07/05/18 22:12 Dose: 10 mg Tramadol HCl (Ultram) 50 mg PO TID PRN PRN Reason: Pain, severe (8-10) - Labs Labs: 07/05/18 13:43 07/05/18 13:43 - Constitutional Appears: No Acute Distress - Head Exam Head Exam: ATRAUMATIC, NORMOCEPHALIC - Eye Exam Eye Exam: EOMI - ENT Exam ENT Exam: Mucous Membranes Moist - Neck Exam Neck Exam: Full ROM - Respiratory Exam Respiratory Exam: Clear to Ausculation Bilateral, NORMAL BREATHING PATTERN. absent: Accessory Muscle Use, Respiratory Distress - Cardiovascular Exam Cardiovascular Exam: RRR, +S1, +S2. absent: Diastolic murmur, Murmur - GI/Abdominal Exam GI & Abdominal Exam: Soft, Normal Bowel Sounds. absent: Tenderness - Extremities Exam Extremities Exam: Full ROM, Pedal Edema. absent: Calf Tenderness - Neurological Exam Neurological Exam: Alert, Awake, Oriented x3 - Psychiatric Exam Psychiatric exam: Normal Affect, Normal Mood - Skin Skin Exam: Dry, Normal Color, Warm Assessment and Plan - Assessment and Plan (Free Text) Assessment: (1) Chest pain Status: Acute (2) HTN (hypertension) Status: Acute (3) VEL (obstructive sleep apnea) Status: Acute Plan: Angina, ACS rule out Trop 07/05/18 negative x3 HA1C December [address] or T wave abnormalities ECHO 02/06/18: EF 63%, diastolic dysfunction, mild aortic regurg Nuclear stress test possibly Tuesday07-07-18 Medications amlodipine ASA plavix john oviedo Pt seen, examined, assessment and plan discussed with Dr Marito Hart PGY1
[2018-07-06] MEDS: Fluticasone Nasal 50 mcg/Spray NS SCH (13:26)
--- NOTE | 2018-07-06 17:52 | CP.PCM.PN ---
Subjective - Date & Time of Evaluation Date of Evaluation: 07/06/18 Time of Evaluation: 11:00 - Subjective Subjective: clinically same Objective - Vital Signs/Intake and Output Vital Signs (last 24 hours): Temp Pulse Resp BP Pulse Ox 98.1 F 76 20 102/65 99 07/06/18 16:00 07/06/18 16:14 07/06/18 16:00 07/06/18 16:00 07/06/18 16:00 Intake and Output: 07/06/18 07/06/18 06:59 18:59 Intake Total 430 Balance 430 - Medications Medications: Current Medications Amlodipine Besylate (Norvasc) 10 mg PO DAILY [facility] Last Admin: 07/06/18 10:06 Dose: 10 mg Aspirin (Aspirin) 325 mg PO DAILY [facility] Last Admin: 07/06/18 10:05 Dose: 325 mg Budesonide (Pulmicort Respules) 0.25 mg INH Q12 [facility] Last Admin: 07/06/18 11:04 Dose: 0.25 mg Clopidogrel Bisulfate (Plavix) 75 mg PO DAILY [facility] Last Admin: 07/06/18 10:05 Dose: 75 mg Diphenhydramine HCl (Benadryl) 50 mg PO Q6H PRN PRN Reason: Allergy symptoms Last Admin: 07/06/18 14:21 Dose: 50 mg Enoxaparin Sodium (Lovenox) 40 mg SC DAILY [facility] Last Admin: 07/06/18 10:05 Dose: 40 mg Famotidine (Pepcid) 20 mg PO DAILY [facility] Last Admin: 07/06/18 10:06 Dose: 20 mg Fluticasone Propionate (Flonase) 1 spr NS DAILY [facility] Last Admin: 07/06/18 13:26 Dose: 1 spr Furosemide (Lasix) 40 mg PO DAILY [facility] Last Admin: 07/06/18 10:07 Dose: 40 mg Losartan Potassium (Cozaar) 50 mg PO DAILY [facility] Last Admin: 07/06/18 10:07 Dose: 50 mg Montelukast Sodium (Singulair) 10 mg PO DAILY [facility] Last Admin: 07/06/18 10:06 Dose: 10 mg Rosuvastatin Calcium (Crestor) 10 mg PO HS [facility] Last Admin: 07/05/18 22:12 Dose: 10 mg Tramadol HCl (Ultram) 50 mg PO TID PRN PRN Reason: Pain, severe (8-10) - Labs Labs: 07/05/18 13:43 07/05/18 13:43
--- NOTE | 2018-07-07 07:50 | CP.PCM.PN ---
Subjective - Date & Time of Evaluation Date of Evaluation: 07/07/18 Time of Evaluation: 07:49 - Subjective Subjective: Dr. Vero Ortiz Progress Note Patient 52 year old female with a past medical history of hypertension, copd, joshua cyst, and obesity who comes in after having chest pain that begin on Thrusday. Patient reports being a sleep and being woken up to chest pain that was located on the left side of her chest. Patient rates the pain as a 6/10 in severity. Patient normally gets this pain, however the pain continued to come and go which is why she came in. Of note, patient was recently admitted to the hospital for similar symptoms and had instructions to have an outpatient stress test done on discharge. Patient failed to get the stress test prior to returning to the hospital. Patient reports some dizziness in conjunction with the pain. Patient denies any fevers, chills, changes in vision, syncopal episodes, abdominal pain , or any other complaints. PMD: Dr. Mancia Medical history: hypertension, copd, joshua cyst, obesity Allergies: Denies Surgical history: Hernia repair, 5 c-sections Family history: Mom (From stroke and heart attack), Brother (pancreatic cancer) Objective - Vital Signs/Intake and Output Vital Signs (last 24 hours): Temp Pulse Resp BP Pulse Ox 98.5 F 58 L 20 117/74 97 07/06/18 20:10 07/07/18 05:31 07/07/18 05:31 07/07/18 05:31 07/07/18 05:31 - Medications Medications: Current Medications Amlodipine Besylate (Norvasc) 10 mg PO DAILY [facility] Last Admin: 07/06/18 10:06 Dose: 10 mg Aspirin (Aspirin) 325 mg PO DAILY [facility] Last Admin: 07/06/18 10:05 Dose: 325 mg Budesonide (Pulmicort Respules) 0.25 mg INH Q12 [facility] Last Admin: 07/06/18 20:42 Dose: 0.25 mg Clopidogrel Bisulfate (Plavix) 75 mg PO DAILY [facility] Last Admin: 07/06/18 10:05 Dose: 75 mg Diphenhydramine HCl (Benadryl) 50 mg PO Q6H PRN PRN Reason: Allergy symptoms Last Admin: 07/06/18 14:21 Dose: 50 mg Enoxaparin Sodium (Lovenox) 40 mg SC DAILY [facility] Last Admin: 07/06/18 10:05 Dose: 40 mg Famotidine (Pepcid) 20 mg PO DAILY [facility] Last Admin: 07/06/18 10:06 Dose: 20 mg Fluticasone Propionate (Flonase) 1 spr NS DAILY [facility] Last Admin: 07/06/18 13:26 Dose: 1 spr Furosemide (Lasix) 40 mg PO DAILY [facility] Last Admin: 07/06/18 10:07 Dose: 40 mg Losartan Potassium (Cozaar) 50 mg PO DAILY [facility] Last Admin: 07/06/18 10:07 Dose: 50 mg Montelukast Sodium (Singulair) 10 mg PO DAILY [facility] Last Admin: 07/06/18 10:06 Dose: 10 mg Rosuvastatin Calcium (Crestor) 10 mg PO HS [facility] Last Admin: 07/06/18 21:43 Dose: 10 mg Tramadol HCl (Ultram) 50 mg PO TID PRN PRN Reason: Pain, severe (8-10) Last Admin: 07/06/18 20:22 Dose: 50 mg - Labs Labs: 07/05/18 13:43 07/05/18 13:43 - Head Exam Head Exam: ATRAUMATIC, NORMAL INSPECTION, NORMOCEPHALIC - Eye Exam Eye Exam: EOMI, Normal appearance, PERRL Pupil Exam: NORMAL ACCOMODATION - ENT Exam ENT Exam: Mucous Membranes Moist, Normal Oropharynx - Respiratory Exam Respiratory Exam: Clear to Ausculation Bilateral, NORMAL BREATHING PATTERN. absent: Respiratory Distress - Cardiovascular Exam Cardiovascular Exam: REGULAR RHYTHM, +S1, +S2 - GI/Abdominal Exam GI & Abdominal Exam: Soft, Normal Bowel Sounds - Extremities Exam Extremities Exam: Full ROM, Normal Inspection. absent: Joint Swelling, Pedal Edema - Back Exam Back Exam: NORMAL INSPECTION. absent: CVA tenderness (R), paraspinal tenderness - Neurological Exam Neurological Exam: Alert, Awake, Oriented x3 - Psychiatric Exam Psychiatric exam: Normal Affect, Normal Mood. absent: Depressed - Skin Skin Exam: Dry, Intact, Normal Color Assessment and Plan - Assessment and Plan (Free Text) Assessment: 1. Chest pain r/o acs EKG:sinus rhythm with 1st AV block, ST depression aVF Troponin (-)x3 Nuclear stress test completed. Will f/u with final read. Cardiology Dr. Devi consulted. -reproducible on palpation c/w constochondritis -outpt stress test -EKG - nonspecific -dc home on nsaids Medications: Aspiring 325mg PO Daily Plavix 75mg PO Daily 2.COPD -Pulmicort Respules .25mg INH Q12 [facility] -Singulair 10mg PO HS [facility] 3.Hypertension -Norvasc 10mg PO DAILY [facility] -Lasix 40mg PO Daily -Cozaar 50mg PO DAILY [facility] 4. Hyperlipidemia -Crestor 10mg PO HS [facility] ppx -Pepcid 20mg PO Daily -Lovenox 40 mg PO Daily Dispo: Awaiting final reccomendations from Cardiology. Will follow up with results. All management per Dr. Vero Galarza, PGY-2
[2018-07-07] MEDS: Fluticasone Nasal 50 mcg/Spray NS SCH (10:00)
[2018-07-07] MEDS: Enoxaparin 40 mg Syringe SC SCH (10:00)
--- NOTE | 2018-07-07 19:46 | CP.PCM.PN ---
Subjective - Date & Time of Evaluation Date of Evaluation: 07/07/18 Time of Evaluation: 11:45 - Subjective Subjective: clinically same Objective - Vital Signs/Intake and Output Vital Signs (last 24 hours): Temp Pulse Resp BP Pulse Ox 98 F 60 20 102/59 L 97 07/07/18 07:00 07/07/18 07:43 07/07/18 07:00 07/07/18 07:00 07/07/18 07:00 Intake and Output: 07/07/18 07/08/18 18:59 06:59 Intake Total 200 Balance 200 - Medications Medications: Current Medications Amlodipine Besylate (Norvasc) 10 mg PO DAILY [facility] Last Admin: 07/07/18 10:00 Dose: Not Given Aspirin (Aspirin) 325 mg PO DAILY [facility] Last Admin: 07/07/18 10:00 Dose: Not Given Budesonide (Pulmicort Respules) 0.25 mg INH Q12 [facility] Last Admin: 07/06/18 20:42 Dose: 0.25 mg Clopidogrel Bisulfate (Plavix) 75 mg PO DAILY [facility] Last Admin: 07/07/18 10:00 Dose: Not Given Diphenhydramine HCl (Benadryl) 50 mg PO Q6H PRN PRN Reason: Allergy symptoms Last Admin: 07/07/18 18:00 Dose: 50 mg Enoxaparin Sodium (Lovenox) 40 mg SC DAILY [facility] Last Admin: 07/07/18 10:00 Dose: Not Given Famotidine (Pepcid) 20 mg PO DAILY [facility] Last Admin: 07/07/18 10:00 Dose: Not Given Fluticasone Propionate (Flonase) 1 spr NS DAILY [facility] Last Admin: 07/07/18 10:00 Dose: Not Given Furosemide (Lasix) 40 mg PO DAILY [facility] Last Admin: 07/07/18 10:00 Dose: Not Given Losartan Potassium (Cozaar) 50 mg PO DAILY [facility] Last Admin: 07/07/18 10:00 Dose: Not Given Montelukast Sodium (Singulair) 10 mg PO DAILY [facility] Last Admin: 07/07/18 10:00 Dose: Not Given Rosuvastatin Calcium (Crestor) 10 mg PO HS [facility] Last Admin: 07/06/18 21:43 Dose: 10 mg Tramadol HCl (Ultram) 50 mg PO TID PRN PRN Reason: Pain, severe (8-10) Last Admin: 07/06/18 20:22 Dose: 50 mg - Labs Labs: 07/05/18 13:43 07/05/18 13:43
[2018-07-07] MEDS: Budesonide 0.25 mg/2 ml Inhal Susp UD INH SCH (20:16)
[2018-07-08 07:58] VITALS: PULSE 65; TEMP 98.1
[2018-07-08] MEDS: Fluticasone Nasal 50 mcg/Spray NS SCH (10:13)
[2018-07-08 10:14] VITALS: BP 109/62
[2018-07-08] MEDS: Budesonide 0.25 mg/2 ml Inhal Susp UD INH SCH (10:24)
--- NOTE | 2018-07-09 08:32 | CARD ---
APPROVED REPORT Date of service: 07/05/2018 EKG Measurement Heart [id number] <Conclusion> Normal sinus rhythm Nonspecific ST abnormality Abnormal ECG
[2018-07-10 12:58] VITALS: O2SAT 99
== END 2018-07-08 12:01 | disposition home or self-care (01) | DRG 143 ==
LOC: C.ER 13:01 → C.9E 14:50 → C.6T 16:30 → OBSVTOIN 07-07 21:00
PROVIDERS: ADMIT Internal Medicine Nephrology; ATTEND Internal Medicine Nephrology
DX: R07.89 Other chest pain (principal); J44.9 Chronic obstructive pulmonary disease, unspecified; G47.33 Obstructive sleep apnea (adult) (pediatric); I10 Essential (primary) hypertension; F31.9 Bipolar disorder, unspecified; F41.9 Anxiety disorder, unspecified

== ENCOUNTER 2018-09-02 16:34 | Observation (INO) | payer MEDICAID, OTHER ==
[2018-09-02 16:34] VITALS: BMI 53.9
--- NOTE | 2018-09-02 17:48 | RAD ---
Date of service: 09/02/2018 HISTORY: cp COMPARISON: 07/05/2018 TECHNIQUE: 1 view obtained. FINDINGS: LUNGS: No active pulmonary disease. PLEURA: No significant pleural effusion identified, no pneumothorax apparent. CARDIOVASCULAR: No aortic atherosclerotic calcification present. Normal cardiac size. No pulmonary vascular congestion. OSSEOUS STRUCTURES: No significant abnormalities. VISUALIZED UPPER ABDOMEN: Normal. OTHER FINDINGS: None. IMPRESSION: No active disease.
[2018-09-02 17:49] LABS: BASO # 0.1 K/uL (0.0-0.2); EOS # 0.2 K/uL (0.0-0.7); EOS % 3.5 % (0.0-4.0); HEMOGLOBIN 12.4 g/dL (11.0-16.0); LYMPH # 2.1 K/uL (1.0-4.3); LYMPH % 30.6 % (20.0-40.0); MEAN CORPUSCULAR HEMOGLOBIN 28.2 pg (27.0-31.0); MEAN CORPUSCULAR HGB CONC 32.5 g/dL (33.0-37.0); MEAN PLATELET VOLUME 8.4 fL (7.2-11.7); MONO # 0.5 K/uL (0.0-0.8); MONO % 7.2 % (0.0-10.0); NEUT # 3.9 K/uL (1.8-7.0); NEUT % 57.7 % (50.0-75.0); RBC 4.38 Mil/uL (3.80-5.20); RED CELL DISTRIBUTION WIDTH 14.3 % (11.5-14.5); WHITE BLOOD COUNT 6.8 K/uL (4.8-10.8)
[2018-09-02 18:01] LABS: ALB/GLOB RATIO 1.4 (1.0-2.1); ALBUMIN 4.3 g/dL (3.5-5.0); ALT/SGPT 17 U/L (9-52); AST/SGOT 20 U/L (14-36); BLOOD UREA NITROGEN 18 mg/dL (7-17); GFR NON-AFRICAN AMERICAN > 60
[2018-09-02 18:13] LABS: CK-MB 0.43 ng/mL (0.0-3.38)
--- NOTE | 2018-09-02 18:26 | C.PDOC ---
History Of Present Illness 52 y/o F c PMHx HTN p/w chest pain x 1 day. States last had pain while in waiting room of ED. Pain is on L sided chest under breast, nonradiating. She states she had a positive stress test recently and is scheduled for angiogram next week. Denies fever, chills, vomiting. Time Seen by Provider: 09/02/18 16:59 Chief Complaint (Nursing): Chest Pain Past Medical History Vital Signs: Last Vital Signs Temp 98.4 F 09/02/18 16:49 Pulse 66 09/02/18 16:49 Resp 18 09/02/18 16:49 BP 131/83 09/02/18 16:49 Pulse Ox 97 09/02/18 16:49 - Medical History PMH: Anxiety, Arthritis, Asthma, Bipolar Disorder, COPD, Depression, HTN, Peripheral Edema, Pneumonia (2016), Sleep Apnea (on CPAP) Denies: Chronic Kidney Disease Surgical History: Hernia Repair, Family History: States: Unknown Family Hx - Social History Hx Tobacco Use: No Hx Alcohol Use: No Hx Substance Use: No - Immunization History Hx Tetanus Toxoid Vaccination: No Hx Influenza Vaccination: No Hx Pneumococcal Vaccination: No Review Of Systems Except As Marked, All Systems Reviewed And Found Negative. Constitutional: Negative for: Fever Respiratory: Negative for: Shortness of Breath Physical Exam - Physical Exam Additional Physical Exam Comments: gen nad head nc/at eyes perrl ent mmm neck supple chest no tenderness cv reg rate lungs cta b/l abd soft, nt back no cva tenderness skin no rash extremities no tenderness neuro alert ED Course And Treatment - Laboratory Results Result Diagrams: 09/02/18 17:47 09/02/18 17:47 Lab Results: Troponin I < 0.0120 ng/mL (0.00-0.120) 09/02/18 17:47 Total Bilirubin 0.4 mg/dL (0.2-1.3) 09/02/18 17:47 AST 20 U/L (14-36) 09/02/18 17:47 ALT 17 U/L (9-52) 09/02/18 17:47 Alkaline Phosphatase 59 U/L (38-126) 09/02/18 17:47 Total Protein 7.4 g/dL (6.3-8.3) 09/02/18 17:47 Albumin 4.3 g/dL (3.5-5.0) 09/02/18 17:47 Globulin 3.1 gm/dL (2.2-3.9) 09/02/18 17:47 Albumin/Globulin Ratio 1.4 (1.0-2.1) 09/02/18 17:47 O2 Sat by Pulse Oximetry: 97 Medical Decision Making Medical Decision Making: CXR no acute disease. EKG Sinus rhythm, 65 bpm, no ST elevations. Aspirin administered. Disposition - Disposition Disposition: HOSPITALIZED Disposition Time: 18:26 Condition: FAIR - POA Core Measure Indicators: Chest Pain - Clinical Impression Clinical Impression: Chest pain
--- NOTE | 2018-09-02 20:49 | CP.PCM.HP ---
History of Present Illness - History of Present Illness History of Present Illness: 52-year-old morbidly obese female with history of hypertension history of asthma has a chronic chest pain which is retrosternal lasted for few hours came in for the admission patient was hospitalized multiple times in the past patient claims that she had a stress test done last week by Dr. Kun Ortiz at [facility] which was positive and needed angiogram for further work-up so patient came because of the chest pain patient denies any fever chills nausea vomiting sweating although patient also has a pain on the left-sided under the chest Patient has been seen by network control operators supervisor here as Dr. Kun Ortiz does not come to our [facility] PMH: Anxiety, Arthritis, Asthma, Bipolar Disorder, COPD, Depression, HTN, Peripheral Edema, Pneumonia (2016), Sleep Apnea (on CPAP) Denies: Chronic Kidney Disease Surgical History: Hernia Repair, Family History: States: Unknown Family Hx - Social History Hx Tobacco Use: No Hx Alcohol Use: No Hx Substance Use: No - Immunization History Hx Tetanus Toxoid Vaccination: No Hx Influenza Vaccination: No Hx Pneumococcal Vaccination: No Review Of Systems Except As Marked, All Systems Reviewed And Found Negative. Constitutional: Negative for: Fever Respiratory: Negative for: Shortness of Breath Present on Admission - Present on Admission Any Indicators Present on Admission: No Past Patient History - Infectious Disease Hx of Infectious Diseases: None - Past Medical History & Family History Past Medical History?: Yes - Past Social History Smoking Status: Never Smoked - CARDIAC Hx Hypertension: Yes Hx Peripheral Edema: Yes - PULMONARY Hx Asthma: Yes Hx Chronic Obstructive Pulmonary Disease (COPD): Yes Hx Pneumonia: Yes (2016) Hx Sleep Apnea: Yes (on CPAP) - NEUROLOGICAL Hx Neurological Disorder: No - HEENT Hx HEENT Problems: No - RENAL Hx Chronic Kidney Disease: No - ENDOCRINE/METABOLIC Hx Endocrine Disorders: No - HEMATOLOGICAL/ONCOLOGICAL Hx Blood Disorders: No - INTEGUMENTARY Hx Dermatological Problems: No - MUSCULOSKELETAL/RHEUMATOLOGICAL Hx Arthritis: Yes - GASTROINTESTINAL Hx Gastrointestinal Disorders: Yes Other/Comment: HERNIA REPAIR 28 years ago - GENITOURINARY/GYNECOLOGICAL Hx Genitourinary Disorders: No - PSYCHIATRIC Hx Anxiety: Yes Hx Bipolar Disorder: Yes Hx Depression: Yes Hx Substance Use: No - SURGICAL HISTORY Hx Surgeries: Yes Hx Section: Yes (x5) Hx Herniorrhaphy: Yes (28 years ago) - ANESTHESIA Hx Anesthesia: Yes Hx Anesthesia Reactions: No Hx Malignant Hyperthermia: No Meds Allergies/Adverse Reactions: Allergies Allergy/AdvReac Type Severity Reaction Status Date / Time No Known Allergies Allergy Verified 09/02/18 16:53 Physical Exam - Constitutional Appears: Well - Head Exam Head Exam: ATRAUMATIC, NORMAL INSPECTION, NORMOCEPHALIC - Eye Exam Eye Exam: EOMI, Normal appearance, PERRL Pupil Exam: NORMAL ACCOMODATION, PERRL - ENT Exam ENT Exam: Mucous Membranes Moist, Normal Exam - Neck Exam Neck exam: Positive for: Normal Inspection - Respiratory Exam Respiratory Exam: Decreased Breath Sounds - Cardiovascular Exam Cardiovascular Exam: REGULAR RHYTHM, +S1, +S2 - GI/Abdominal Exam GI & Abdominal Exam: Diminished Bowel Sounds, Soft - Rectal Exam Rectal Exam: Deferred - Neurological Exam Neurological exam: Oriented x3 Results - Vital Signs Recent Vital Signs: Last Vital Signs Temp 98.6 F 09/02/18 20:18 Pulse 61 09/02/18 20:18 Resp 18 09/02/18 20:18 BP 115/77 09/02/18 20:18 Pulse Ox 98 09/02/18 20:18 - Labs Result Diagrams: 09/02/18 17:47 09/02/18 17:47 Labs: Laboratory Results - last 24 hr 09/02/18 09/02/18 17:47 17:47 WBC 6.8 RBC 4.38 Hgb 12.4 Hct 38.1 MCV 87.0 MCH 28.2 MCHC 32.5 L RDW 14.3 Plt Count 275 MPV 8.4 Neut % (Auto) 57.7 Lymph % (Auto) 30.6 [place] % (Auto) 7.2 Eos % (Auto) 3.5 Baso % (Auto) 1.0 Neut # (Auto) 3.9 Lymph # (Auto) 2.1 [place] # (Auto) 0.5 Eos # (Auto) 0.2 Baso # (Auto) 0.1 Sodium 139 Potassium 4.2 Chloride 103 Carbon Dioxide 31 H Anion Gap 8 L BUN 18 H Creatinine 0.6 L Est GFR ( Amer) > 60 Est GFR (Non-Af Amer) > 60 Random Glucose 88 Calcium 9.0 Total Bilirubin 0.4 AST 20 ALT 17 Alkaline Phosphatase 59 Total Creatine Kinase 54 CK-MB (Mass) 0.43 Troponin I < 0.0120 Total Protein 7.4 Albumin 4.3 Globulin 3.1 Albumin/Globulin Ratio 1.4 Assessment & Plan - Assessment and Plan (Free Text) Plan: Plan DuoNeb Amlodipine Aspirin Lovenox Fluticasone Losartan Lasix Montelukast Protonix Christer BiPAP at night
[2018-09-03 01:25] VITALS: RESP 20
[2018-09-03 03:53] LABS: CK-MB 0.23 ng/mL (0.0-3.38)
--- NOTE | 2018-09-03 08:36 | CP.PCM.CON ---
History of Present Illness - History of Present Illness History of Present Illness: CC: Chest pain HPI: 52 year old female reporting chronic chest pain. Pain is throbining in character. Pain is located in the left chest. Pain is not modified by any maneuver. Appears to improve with NSAIDS. Review of Systems - Review of Systems All systems: reviewed and no additional remarkable complaints except Past Patient History - Infectious Disease Hx of Infectious Diseases: None - Past Medical History & Family History Past Medical History?: Yes - Past Social History Smoking Status: Never Smoked - CARDIAC Hx Hypertension: Yes Hx Peripheral Edema: Yes - PULMONARY Hx Asthma: Yes Hx Chronic Obstructive Pulmonary Disease (COPD): Yes Hx Pneumonia: Yes (2016) Hx Sleep Apnea: Yes (on CPAP) - NEUROLOGICAL Hx Neurological Disorder: No - HEENT Hx HEENT Problems: No - RENAL Hx Chronic Kidney Disease: No - ENDOCRINE/METABOLIC Hx Endocrine Disorders: No - HEMATOLOGICAL/ONCOLOGICAL Hx Blood Disorders: No - INTEGUMENTARY Hx Dermatological Problems: No - MUSCULOSKELETAL/RHEUMATOLOGICAL Hx Arthritis: Yes - GASTROINTESTINAL Hx Gastrointestinal Disorders: Yes Other/Comment: HERNIA REPAIR 28 years ago - GENITOURINARY/GYNECOLOGICAL Hx Genitourinary Disorders: No - PSYCHIATRIC Hx Anxiety: Yes Hx Bipolar Disorder: Yes Hx Depression: Yes Hx Substance Use: No - SURGICAL HISTORY Hx Surgeries: Yes Hx Section: Yes (x5) Hx Herniorrhaphy: Yes (28 years ago) - ANESTHESIA Hx Anesthesia: Yes Hx Anesthesia Reactions: No Hx Malignant Hyperthermia: No Meds Allergies/Adverse Reactions: Allergies Allergy/AdvReac Type Severity Reaction Status Date / Time No Known Allergies Allergy Verified 09/02/18 16:53 - Medications Medications: Current Medications Albuterol/Ipratropium (Duoneb 3 Mg/0.5 Mg (3 Ml) Ud) 3 ml INH RQ6 [facility] Amlodipine Besylate (Norvasc) 10 mg PO DAILY [facility] Aspirin (Aspirin) 325 mg PO DAILY [facility] Enoxaparin Sodium (Lovenox) 40 mg SC DAILY [facility] Fluticasone Propionate (Flonase) 1 spr NS DAILY [facility] Furosemide (Lasix) 40 mg IVP DAILY [facility] Losartan Potassium (Cozaar) 50 mg PO DAILY [facility] Montelukast Sodium (Singulair) 10 mg PO DAILY [facility] Pantoprazole Sodium (Protonix Ec Tab) 40 mg PO DAILY [facility] Rosuvastatin Calcium (Crestor) 10 mg PO HS [facility] Last Admin: 09/02/18 21:38 Dose: 10 mg Physical Exam - Constitutional Appears: Well, Non-toxic - Head Exam Head Exam: ATRAUMATIC, NORMAL INSPECTION - Eye Exam Eye Exam: PERRL. absent: Scleral icterus - ENT Exam ENT Exam: Mucous Membranes Moist, Normal External Ear Exam - Neck Exam Neck exam: Positive for: Full Rom. Negative for: Thyromegaly - Respiratory Exam Respiratory Exam: Clear to Auscultation Bilateral, NORMAL BREATHING PATTERN - Cardiovascular Exam Cardiovascular Exam: REGULAR RHYTHM, RRR, +S1, +S2. absent: JVD - GI/Abdominal Exam GI & Abdominal Exam: Normal Bowel Sounds. absent: Organomegaly - Neurological Exam Neurological exam: CN II-XII Intact, Oriented x3 - Psychiatric Exam Psychiatric exam: Normal Affect, Normal Mood Results - Vital Signs Recent Vital Signs: Last Vital Signs Temp 97.9 F 09/02/18 23:30 Pulse 62 09/02/18 23:30 Resp 20 09/02/18 23:30 BP 115/64 09/02/18 23:30 Pulse Ox 98 09/03/18 03:00 - Labs Result Diagrams: 09/02/18 17:47 09/02/18 17:47 Labs: Laboratory Results - last 24 hr 09/02/18 09/02/18 09/03/18 17:47 17:47 03:25 WBC 6.8 RBC 4.38 Hgb 12.4 Hct 38.1 MCV 87.0 MCH 28.2 MCHC 32.5 L RDW 14.3 Plt Count 275 MPV 8.4 Neut % (Auto) 57.7 Lymph % (Auto) 30.6 [place] % (Auto) 7.2 Eos % (Auto) 3.5 Baso % (Auto) 1.0 Neut # (Auto) 3.9 Lymph # (Auto) 2.1 [place] # (Auto) 0.5 Eos # (Auto) 0.2 Baso # (Auto) 0.1 Sodium 139 Potassium 4.2 Chloride 103 Carbon Dioxide 31 H Anion Gap 8 L BUN 18 H Creatinine 0.6 L Est GFR ( Amer) > 60 Est GFR (Non-Af Amer) > 60 Random Glucose 88 Calcium 9.0 Total Bilirubin 0.4 AST 20 ALT 17 Alkaline Phosphatase 59 Total Creatine Kinase 54 43 CK-MB (Mass) 0.43 0.23 Troponin I < 0.0120 < 0.0120 Total Protein 7.4 Albumin 4.3 Globulin 3.1 Albumin/Globulin Ratio 1.4 - EKG Data EKG Interpreted by: Myself EKG shows normal: Sinus rhythm Rate: Normal - Imaging and Cardiology Chest x-ray Status: Image reviewed by me Additional comment: No infiltrates or effusions Nuclear stress test Status: Image reviewed by me Additional comment: Normal perfusion normal ejection fraction Assessment & Plan - Assessment and Plan (Free Text) Assessment: 52 year old female with chest pain I ordered serial troponin and EKG to rule out ischemia and NV, Aspirin, high dose of statin is ordered HTN is chronic and stable on losartan and amlodipine Hyperlipidemia is chronic and stable on crestor She has recent history of exercise nuclear stress test which shows she perform >7 METS and had normal perfusion and ejection fraction so there is a low probablity her symptoms are due to angina. IF she rules out for myocardial infarction she can be d/c home. - Date & Time Date: 09/03/18 Time: 09:00
[2018-09-03] MEDS: Fluticasone Nasal 50 mcg/Spray NS SCH (10:03)
[2018-09-03] MEDS: Pantoprazole 40 mg EC Tab PO SCH (10:03)
[2018-09-03] MEDS: Enoxaparin 40 mg Syringe SC SCH (10:05)
[2018-09-03 12:05] LABS: CK-MB 0.39 ng/mL (0.0-3.38)
[2018-09-03] MEDS: Albuterol-Ipratrop 3 mg / 0.5 (3 ml) UD INH SCH (19:27)
--- NOTE | 2018-09-03 20:00 | CP.PCM.PN ---
Subjective - Date & Time of Evaluation Date of Evaluation: 09/03/18 Time of Evaluation: 10:25 - Subjective Subjective: No nausea No vomiting no chest pain no fever Objective - Vital Signs/Intake and Output Vital Signs (last 24 hours): Temp Pulse Resp BP Pulse Ox 98.2 F 70 20 119/74 98 09/03/18 15:08 09/03/18 15:08 09/03/18 15:08 09/03/18 15:08 09/03/18 17:15 Intake and Output: 09/03/18 09/04/18 18:59 06:59 Intake Total 500 Balance 500 - Medications Medications: Current Medications Acetaminophen (Tylenol 325mg Tab) 650 mg PO Q8 PRN PRN Reason: headache Last Admin: 09/03/18 15:31 Dose: 650 mg Albuterol/Ipratropium (Duoneb 3 Mg/0.5 Mg (3 Ml) Ud) 3 ml INH RQ6 [facility] Last Admin: 09/03/18 19:27 Dose: 3 ml Amlodipine Besylate (Norvasc) 10 mg PO DAILY [facility] Last Admin: 09/03/18 10:03 Dose: 10 mg Aspirin (Aspirin) 325 mg PO DAILY [facility] Last Admin: 09/03/18 10:04 Dose: 325 mg Enoxaparin Sodium (Lovenox) 40 mg SC DAILY [facility] Last Admin: 09/03/18 10:05 Dose: 40 mg Fluticasone Propionate (Flonase) 1 spr NS DAILY [facility] Last Admin: 09/03/18 10:03 Dose: 1 spr Furosemide (Lasix) 40 mg IVP DAILY [facility] Last Admin: 09/03/18 10:04 Dose: 40 mg Losartan Potassium (Cozaar) 50 mg PO DAILY [facility] Last Admin: 09/03/18 10:03 Dose: 50 mg Montelukast Sodium (Singulair) 10 mg PO DAILY [facility] Last Admin: 09/03/18 10:04 Dose: 10 mg Pantoprazole Sodium (Protonix Ec Tab) 40 mg PO DAILY [facility] Last Admin: 09/03/18 10:03 Dose: 40 mg Rosuvastatin Calcium (Crestor) 10 mg PO HS [facility] Last Admin: 09/02/18 21:38 Dose: 10 mg - Labs Labs: 09/02/18 17:47 09/02/18 17:47 - Constitutional Appears: Well - Head Exam Head Exam: ATRAUMATIC, NORMAL INSPECTION, NORMOCEPHALIC - Eye Exam Eye Exam: EOMI, Normal appearance, PERRL Pupil Exam: NORMAL ACCOMODATION, PERRL - ENT Exam ENT Exam: Mucous Membranes Moist, Normal Exam - Neck Exam Neck Exam: Full ROM, Normal Inspection. absent: Lymphadenopathy - Respiratory Exam Respiratory Exam: Decreased Breath Sounds - Cardiovascular Exam Cardiovascular Exam: REGULAR RHYTHM, +S1, +S2 - GI/Abdominal Exam GI & Abdominal Exam: Soft, Diminished Bowel Sounds - Rectal Exam Rectal Exam: Deferred - Neurological Exam Neurological Exam: Oriented x3 Assessment and Plan (1) Abnormal EKG Status: Acute (2) Acute asthma exacerbation Status: Acute (3) Acute electrocardiogram changes Status: Acute (4) Allergic asthma Status: Acute (5) Allergic asthma with acute exacerbation Status: Acute (6) Allergic reaction Status: Acute (7) Ankle pain, right Status: Acute (8) Anxiety Status: Acute (9) Arthralgia of knee Status: Acute (10) Asthma Status: Acute (11) Asthma exacerbation Status: Acute (12) Rosa cyst Status: Acute (13) Body fluid retention Status: Acute (14) COPD exacerbation Status: Acute (15) Chest pain Status: Acute (16) Chest pain Status: Acute (17) Chest wall discomfort Status: Acute (18) Chest wall pain Status: Acute (19) Chronic leg pain Status: Acute (20) Dyspnea Status: Acute (21) Fibroid uterus Status: Acute (22) Foot pain, right Status: Acute (23) HTN (hypertension) Status: Acute (24) Knee pain, right Status: Acute (25) Lower abdominal pain Status: Acute (26) Morbid obesity Status: Acute (27) Morbid obesity due to excess calories Status: Acute (28) VEL (obstructive sleep apnea) Status: Acute (29) 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 (30) Paresthesia and pain of extremity Status: Acute (31) Prophylactic measure Status: Acute (32) Skin irritation Status: Acute (33) Skin rash Status: Acute (34) Syncope Status: Acute (35) Synovial cyst of popliteal space [Rosa], right knee Status: Acute (36) Uncontrolled hypertension Status: Acute (37) Asthma Status: Chronic (38) Costochondral chest pain Status: Resolved (39) Shortness of breath Status: Resolved - Assessment and Plan (Free Text) Plan: Patient uses a CPAP at night Status post cardiology Possible angiogram this week because of the abnormal stress test Plan follow-up with cardiology Angiogram as per the cardiology although information technology officer will speak to patient's private information technology officer Patient does not have an acute chest pain in last 24 hours medications reviewed aspirin cozaar crestor duoneb flonase lasix lovenox norvasc protonix ec tab singulair tylenol vitals reviewed labs reviewed plan discussed with patient moderate complexity of care
[2018-09-04] MEDS: Albuterol-Ipratrop 3 mg / 0.5 (3 ml) UD INH SCH ×2 (06:04→07:30)
--- NOTE | 2018-09-04 07:49 | CP.PCM.PN ---
<Bruce Ingram - Last Filed: 09/04/18 08:41> Subjective - Date & Time of Evaluation Date of Evaluation: 09/04/18 Time of Evaluation: 07:45 - Subjective Subjective: PGY-[address] Ortiz's service Pt seen and examined at bedside. Nursing reports no acute events overnight. She states her chest pain has completely resolved, and has no difficulty ambulating. Denies fever, chills, abdominal pain, nausea, vomiting. Says she is tolerating diet and voiding without difficulty. Objective - Vital Signs/Intake and Output Vital Signs (last 24 hours): Temp Pulse Resp BP Pulse Ox 98.1 F 81 20 115/57 L 97 09/03/18 23:47 09/03/18 23:47 09/03/18 23:47 09/03/18 23:47 09/04/18 04:47 - Medications Medications: Current Medications Acetaminophen (Tylenol 325mg Tab) 650 mg PO Q8 PRN PRN Reason: headache Last Admin: 09/03/18 15:31 Dose: 650 mg Albuterol/Ipratropium (Duoneb 3 Mg/0.5 Mg (3 Ml) Ud) 3 ml INH RQ6 [facility] Last Admin: 09/04/18 07:30 Dose: 3 ml Amlodipine Besylate (Norvasc) 10 mg PO DAILY [facility] Last Admin: 09/03/18 10:03 Dose: 10 mg Aspirin (Aspirin) 325 mg PO DAILY [facility] Last Admin: 09/03/18 10:04 Dose: 325 mg Enoxaparin Sodium (Lovenox) 40 mg SC DAILY [facility] Last Admin: 09/03/18 10:05 Dose: 40 mg Fluticasone Propionate (Flonase) 1 spr NS DAILY [facility] Last Admin: 09/03/18 10:03 Dose: 1 spr Furosemide (Lasix) 40 mg IVP DAILY [facility] Last Admin: 09/03/18 10:04 Dose: 40 mg Losartan Potassium (Cozaar) 50 mg PO DAILY [facility] Last Admin: 09/03/18 10:03 Dose: 50 mg Montelukast Sodium (Singulair) 10 mg PO DAILY [facility] Last Admin: 09/03/18 10:04 Dose: 10 mg Pantoprazole Sodium (Protonix Ec Tab) 40 mg PO DAILY [facility] Last Admin: 09/03/18 10:03 Dose: 40 mg Rosuvastatin Calcium (Crestor) 10 mg PO HS [facility] Last Admin: 09/03/18 21:50 Dose: 10 mg - Labs Labs: 09/02/18 17:47 09/02/18 17:47 - Additional Findings Additional findings: - Constitutional Appears: Well, Non-toxic, Excess body habitus noted - Head Exam Head Exam: ATRAUMATIC, NORMAL INSPECTION - Eye Exam Eye Exam: PERRL. absent: Scleral icterus - ENT Exam ENT Exam: Mucous Membranes Moist, Normal External Ear Exam - Neck Exam Neck exam: Positive for: Full Rom. Negative for: Thyromegaly - Respiratory Exam Respiratory Exam: Clear to Auscultation Bilateral, NORMAL BREATHING PATTERN - Cardiovascular Exam Cardiovascular Exam: REGULAR RHYTHM, RRR, +S1, +S2. absent: JVD - GI/Abdominal Exam GI & Abdominal Exam: Normal Bowel Sounds. 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, help appreciated - Recent stress test showed normal perfusion - cleared for discharge, with f/u to patients rock lather Crestor 10mg PO HS HFpEF status: chronic ECHO (02/23): EF 60-65%, Disatolic Disfunction, no pulm HTN Cozaar 50mg PO Daily Norvasc 10mg PO Daily ASA 325mg PO Daily Lasix 40mg IV Daily Obstructive lung disease status: chronic Pt states she has asthma & COPD Duonebs 3ml Q6h HTN status: chronic Norvasc 10mg PO Daily Sinusitis/Allergic rhinitis status: chronic Flonase 1 spray NS Daily Singulair 10mg PO daily PPX SCDs Protonix 40mg PO daily Lovenox 40mg SC daily Tylenol 650mg PO PRN Q8H for pain/PRATRE/fever Disposition: Clear for discharge by cardio. She should f/u with PMD and cardio w/in one week. Given refills for BP meds, and ventolin All mgmt per Dr. Angel Ingram PGY3 <Nithin Ortiz - Last Filed: 09/04/18 17:02> Objective - Vital Signs/Intake and Output Vital Signs (last 24 hours): Temp Pulse Resp BP Pulse Ox 97.8 F 67 20 114/46 L 98 09/04/18 08:24 09/04/18 08:24 09/04/18 08:24 09/04/18 08:24 09/04/18 08:24 - Labs Labs: 09/02/18 17:47 09/02/18 17:47 Attending/Attestation - Attestation I have personally seen and examined this patient.: Yes I have fully participated in the care of the patient.: Yes I have reviewed all pertinent clinical information, including history, physical exam and plan: Yes Notes (Text): 09/04/18 17:02 case seen and d.w staff and resident, concurred with finding and management..Moderate to high complexity of care. Plan of care discussed with patient &/or family & staff. Medications reviewed and reconciled. Labs reviewed. Vitals reviewed.
[2018-09-04 08:25] VITALS: PULSE 67; TEMP 97.8; O2SAT 98
[2018-09-04] MEDS: Pantoprazole 40 mg EC Tab PO SCH (09:45)
[2018-09-04] MEDS: Enoxaparin 40 mg Syringe SC SCH (09:45)
[2018-09-04] MEDS: Fluticasone Nasal 50 mcg/Spray NS SCH (09:49)
[2018-09-04] MEDS ORDERED: Nystatin 100,000 Units/ml Oral Susp 5 ml UD PO ONE (10:45)
[2018-09-04 11:24] VITALS: BP 114/46
--- NOTE | 2018-09-04 17:00 | CP.PCM.DIS ---
Provider - Provider Date of Admission: 09/02/18 18:23 Attending physician: Ricardo Lee MD Consults: 09/02/18 19:47 Cardiology Consult Routine Comment: Consulting Provider: Geronimo Benitez Consulting Physician: Geronimo Benitez Reason for Consult: chest pain Time Spent in preparation of Discharge (in minutes): 15 Hospital Course - Lab Results Lab Results: Most Recent Lab Values WBC 6.8 K/uL (4.8-10.8) 09/02/18 17:47 RBC 4.38 Mil/uL (3.80-5.20) 09/02/18 17:47 Hgb 12.4 g/dL (11.0-16.0) 09/02/18 17:47 Hct 38.1 % (34.0-47.0) 09/02/18 17:47 MCV 87.0 fL (81.0-99.0) 09/02/18 17:47 MCH 28.2 pg (27.0-31.0) 09/02/18 17:47 MCHC 32.5 g/dL (33.0-37.0) L 09/02/18 17:47 RDW 14.3 % (11.5-14.5) 09/02/18 17:47 Plt Count 275 K/uL (130-400) 09/02/18 17:47 MPV 8.4 fL (7.2-11.7) 09/02/18 17:47 Neut % (Auto) 57.7 % (50.0-75.0) 09/02/18 17:47 Lymph % (Auto) 30.6 % (20.0-40.0) 09/02/18 17:47 Valley % (Auto) 7.2 % (0.0-10.0) 09/02/18 17:47 Eos % (Auto) 3.5 % (0.0-4.0) 09/02/18 17:47 Baso % (Auto) 1.0 % (0.0-2.0) 09/02/18 17:47 Neut # (Auto) 3.9 K/uL (1.8-7.0) 09/02/18 17:47 Lymph # (Auto) 2.1 K/uL (1.0-4.3) 09/02/18 17:47 Valley # (Auto) 0.5 K/uL (0.0-0.8) 09/02/18 17:47 Eos # (Auto) 0.2 K/uL (0.0-0.7) 09/02/18 17:47 Baso # (Auto) 0.1 K/uL (0.0-0.2) 09/02/18 17:47 Sodium 139 mmol/L (132-148) 09/02/18 17:47 Potassium 4.2 mmol/L (3.6-5.2) 09/02/18 17:47 Chloride 103 mmol/L (98-107) 09/02/18 17:47 Carbon Dioxide 31 mmol/L (22-30) H 09/02/18 17:47 Anion Gap 8 (10-20) L 09/02/18 17:47 BUN 18 mg/dL (7-17) H 09/02/18 17:47 Creatinine 0.6 mg/dL (0.7-1.2) L 09/02/18 17:47 Est GFR ( Amer) > 60 09/02/18 17:47 Est GFR (Non-Af Amer) > 60 09/02/18 17:47 Random Glucose 88 mg/dL (65-105) 09/02/18 17:47 Calcium 9.0 mg/dl (8.6-10.4) 09/02/18 17:47 Total Bilirubin 0.4 mg/dL (0.2-1.3) 09/02/18 17:47 AST 20 U/L (14-36) 09/02/18 17:47 ALT 17 U/L (9-52) 09/02/18 17:47 Alkaline Phosphatase 59 U/L (38-126) 09/02/18 17:47 Total Creatine Kinase 45 U/L (30-135) 09/03/18 11:25 CK-MB (Mass) 0.39 ng/mL (0.0-3.38) 09/03/18 11:25 Troponin I < 0.0120 ng/mL (0.00-0.120) 09/03/18 11:25 Total Protein 7.4 g/dL (6.3-8.3) 09/02/18 17:47 Albumin 4.3 g/dL (3.5-5.0) 09/02/18 17:47 Globulin 3.1 gm/dL (2.2-3.9) 09/02/18 17:47 Albumin/Globulin Ratio 1.4 (1.0-2.1) 09/02/18 17:47 - Hospital Course Hospital Course: pt was seen by dr. carrillo for abn stress test pt adv to see dr. gerardo lee advsied to do cardiac cath cleared by dr. benitez to dsicharge pt home for work up by dr. jesus carrillo as ap avoid lifting heavy eight uses cpap machine rx given d/ wstaff Chest pain, R/o ACS status: acute Observe on tele Troponins negative x 3 EKG (09/03/28): NSR @ 65 bpm, QTc normal, 1st degree heart block ECHO (02/23): EF 60-65%, Disatolic Disfunction, no pulm HTN Dr. 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, help appreciated - Recent stress test showed normal perfusion - cleared for discharge, with f/u to patients wire setter Crestor 10mg PO HS HFpEF status: chronic ECHO (02/23): EF 60-65%, Disatolic Disfunction, no pulm HTN Cozaar 50mg PO Daily Norvasc 10mg PO Daily ASA 325mg PO Daily Lasix 40mg IV Daily Obstructive lung disease status: chronic Pt states she has asthma & COPD Duonebs 3ml Q6h HTN status: chronic Norvasc 10mg PO Daily Sinusitis/Allergic rhinitis status: chronic Flonase 1 spray NS Daily Singulair 10mg PO daily PPX SCDs Protonix 40mg PO daily Lovenox 40mg SC daily Tylenol 650mg PO PRN Q8H for pain/PRATER/fever Disposition: Clear for discharge by cardio. She should f/u with PMD and cardio w/in one week. Given refills for BP meds, and ventolin Discharge Exam - Head Exam Head Exam: ATRAUMATIC, NORMAL INSPECTION, NORMOCEPHALIC Discharge Plan - Discharge Medications Prescriptions: Losartan [Cozaar] 50 mg PO DAILY #30 tab amLODIPine [Norvasc] 10 mg PO DAILY #30 tab Albuterol HFA [Ventolin HFA 90 mcg/actuation (8 g)] 1 puff IH Q4H PRN #1 inhaler PRN Reason: Shortness Of Breath - Follow Up Plan Condition: FAIR Disposition: HOME/ ROUTINE Instructions: Chest Pain, Albuterol, Amlodipine, Losartan Additional Instructions: Patient stable for discharge per Dr Lee Ms Jeronimo should follow up with both her primary doctor and outpatient wire setter within one week of discharge. She may continue her home medications. Refill prescriptions were given as below. She is to return to the emergency department immediately if symptoms return or worsen. She verbalized understanding to these instructions and agreed. Prescriptions at discharge: Amlodpine 10 mg, by mouth once daily (dispense # 30) Losartan 50mg, by mouth once daily (dispense # 30) Ventolin 1 puff Q4H PRN (dispense # 1) Referrals: Geronimo Benitez MD [Staff Provider] - Nithin Lee MD [Staff Provider] -
--- NOTE | 2018-09-05 12:48 | CARD ---
APPROVED REPORT Date of service: 09/02/2018 EKG Measurement Heart [id number] ID [id number] <Conclusion> Sinus rhythm with 1st degree AV block Nonspecific ST and T wave abnormality Abnormal ECG
== END 2018-09-04 11:47 | disposition home or self-care (01) ==
LOC: C.ER 16:34 → C.9E 18:23 → C.5S 19:13
PROVIDERS: ADMIT Internal Medicine Nephrology; ATTEND Internal Medicine Nephrology
DX: M94.0 Chondrocostal junction syndrome [Tietze] (principal); J45.901 Unspecified asthma with (acute) exacerbation; J44.1 Chronic obstructive pulmonary disease with (acute) exacerbation; I11.0 Hypertensive heart disease with heart failure; I50.9 Heart failure, unspecified; F31.9 Bipolar disorder, unspecified; F41.9 Anxiety disorder, unspecified; E66.01 Morbid (severe) obesity due to excess calories; G47.33 Obstructive sleep apnea (adult) (pediatric); R20.2 Paresthesia of skin
CPT/HCPCS: 36415; 71045; 80053; 82550; 82553; 84484; 85025; 94640; 99285; G0378; J1650; J1940